=== PATIENT | male | born 1950 | race Caucasian/White ===

== ENCOUNTER → 2016-06-04 | Outpatient (CLI) | payer OTHER, MEDICARE ==
--- NOTE | 2016-06-04 13:45 | US ---
EXAMINATION TYPE: US liver DATE OF EXAM: 06/04/2016 1:34 PM COMPARISON: NONE CLINICAL HISTORY: B18.2 CHRONIC VIRAL HEP C. EXAM MEASUREMENTS: Liver Length: 17.3 cm Gallbladder Wall: 0.3 cm CBD: 0.5 cm Right Kidney: 10.3 x 5.7 x 6.8 cm Pancreas: Obscured by bowel gas Liver: Increased attenuation Gallbladder: No stones seen Evidence for sonographic Goodwin's sign: no CBD: wnl Right Kidney: No hydronephrosis or nephrolithiasis seen IMPRESSION: 1. Nonspecific increased attenuation to the liver can be seen with fatty infiltration, hepatocellular disease, or enteritis. Correlate clinically.
[2016-06-04 14:17] LABS: INR 1.2 (<1.1); Prothrombin Time 12.3 sec (9.0-12.0)
[2016-06-04 14:22] LABS: CH 36.2; CHCM 34.2; HCT 39.1 % (39.0-53.0); HDW 2.69; HGB 13.3 gm/dL (13.0-17.5); MCH 36.3 pg (25.0-35.0); MCHC 34.1 g/dL (31.0-37.0); MCV 106.5 fL (80.0-100.0); Macrocytosis Moderate; Mean Platelet Volume 8.8; RBC 3.67 m/uL (4.30-5.90); RDW 13.3 % (11.5-15.5); WBC 3.5 k/uL (3.8-10.6)
[2016-06-04 14:32] LABS: ALT 50 U/L (21-72); AST 55 U/L (17-59); Alkaline Phosphatase 123 U/L (38-126); Anion Gap 8 mmol/L; Blood Urea Nitrogen 18 mg/dL (9-20); Calcium 8.9 mg/dL (8.4-10.2); Carbon Dioxide 26 mmol/L (22-30); Chloride 109 mmol/L (98-107); Glucose 127 mg/dL (74-99); Non-African American GFR(MDRD) >60 (>60 ml/min/1.73 sqM); Potassium 4.1 mmol/L (3.5-5.1); Sodium 143 mmol/L (137-145); Total Bilirubin 1.3 mg/dL (0.2-1.3); Total Protein 6.7 g/dL (6.3-8.2)
[2016-06-07 16:55] LABS: HCV Qualitative Result DETECTED (Not detected)
== END | disposition home or self-care (01) ==
LOC: RADUSWWP 13:11
PROVIDERS: ATTEND Internal Medicine Gastroenterology
DX: B18.2 Chronic viral hepatitis C (principal)
CPT/HCPCS: 36415; 76705; 80053; 82105; 85027; 85610; 87522; 87902

== ENCOUNTER → 2016-07-15 | Outpatient (CLI) | payer OTHER, MEDICARE ==
--- NOTE | 2016-07-15 14:27 | US ---
EXAMINATION TYPE: US kidneys/renal and bladder DATE OF EXAM: 07/15/2016 1:50 PM COMPARISON: Previous exam 04 June 2016 CLINICAL HISTORY: R31.21 Hematuria. Microscopic hematuria, no symptoms EXAM MEASUREMENTS: Right Kidney: 9.6 x 4.9 x 6.0 cm Left Kidney: 9.8 x 4.4 x 6.3 cm Right Kidney: wnl Left Kidney: wnl Bladder: wnl Bilateral Jets seen: no incidental of enlarged spleen = 17cm There is no evidence for hydronephrosis at this point in time. No nephrolithiasis is seen. No xander s are identified. The urinary bladder is anechoic. Bilateral ureteral jets are seen. Cortical medullary differentiation is maintained. There is no ascites. The spleen is enlarged. IMPRESSION: Splenomegaly.
== END | disposition home or self-care (01) ==
LOC: RADUSWWP 13:13
PROVIDERS: ATTEND Urology
DX: R16.1 Splenomegaly, not elsewhere classified (principal)
CPT/HCPCS: 76770

== ENCOUNTER → 2016-09-20 | Outpatient (CLI) | payer OTHER, MEDICARE ==
[2016-09-20 10:37] LABS: INR 1.2 (<1.2); Prothrombin Time 12.3 sec (9.0-12.0)
[2016-09-20 10:43] LABS: CH 35.7; CHCM 35.1; HCT 37.7 % (39.0-53.0); HDW 2.66; HGB 13.5 gm/dL (13.0-17.5); MCH 36.6 pg (25.0-35.0); MCHC 35.9 g/dL (31.0-37.0); MCV 102.2 fL (80.0-100.0); Macrocytosis Slight; Mean Platelet Volume 8.3; RBC 3.69 m/uL (4.30-5.90); WBC 2.6 k/uL (3.8-10.6)
[2016-09-20 10:51] LABS: ALT 38 U/L (21-72); AST 30 U/L (17-59); Alkaline Phosphatase 147 U/L (38-126); Anion Gap 8 mmol/L; Blood Urea Nitrogen 21 mg/dL (9-20); Calcium 8.9 mg/dL (8.4-10.2); Carbon Dioxide 22 mmol/L (22-30); Chloride 113 mmol/L (98-107); Glucose 105 mg/dL (74-99); Non-African American GFR(MDRD) >60 (>60 ml/min/1.73 sqM); Potassium 4.2 mmol/L (3.5-5.1); Sodium 143 mmol/L (137-145); Total Bilirubin 1.1 mg/dL (0.2-1.3); Total Protein 6.6 g/dL (6.3-8.2)
== END | disposition home or self-care (01) ==
LOC: LABWHC1 10:02
PROVIDERS: ATTEND Internal Medicine Gastroenterology
DX: B18.2 Chronic viral hepatitis C (principal)
CPT/HCPCS: 36415; 80053; 82105; 85027; 85610

== ENCOUNTER → 2016-10-29 | Outpatient (CLI) | payer OTHER, MEDICARE ==
[2016-10-29 10:52] LABS: Basophils % (A) 0 %; CH 37.1; Eosinophils # (A) 0.2 k/uL (0-0.7); Eosinophils % (A) 5 %; HCT 39.4 % (39.0-53.0); HDW 2.57; HGB 13.5 gm/dL (13.0-17.5); Luc # (Auto) 0.08; Luc % (Auto) 3; Lymphocytes # (A) 1.1 k/uL (1.0-4.8); Lymphocytes % (A) 36 %; MCH 36.6 pg (25.0-35.0); MCHC 34.3 g/dL (31.0-37.0); MCV 106.7 fL (80.0-100.0); Macrocytosis Moderate; Monocytes # (A) 0.3 k/uL (0-1.0); Monocytes % (A) 8 %; Neutrophils # (A) 1.5 k/uL (1.3-7.7); Neutrophils % (A) 48 %; RBC 3.69 m/uL (4.30-5.90); RDW 13.6 % (11.5-15.5); WBC 3.2 k/uL (3.8-10.6); WBC (Perox) 3.08
[2016-11-01 13:22] LABS: Hepatits C Virus RNA, Quant <12 IU/mL (<12); LOG HCV IU/mL <1.08 (<1.08)
== END | disposition home or self-care (01) ==
LOC: LABWHC1 10:33
PROVIDERS: ATTEND Internal Medicine Gastroenterology
DX: B18.2 Chronic viral hepatitis C (principal)
CPT/HCPCS: 36415; 85025; 87522

== ENCOUNTER → 2017-01-20 | Outpatient (CLI) | payer OTHER, MEDICARE ==
[2017-01-20 12:00] LABS: Basophils % (A) 0 %; CH 36.3; CHCM 35.3; Eosinophils # (A) 0.2 k/uL (0-0.7); Eosinophils % (A) 4 %; HCT 40.5 % (39.0-53.0); Luc # (Auto) 0.08; Luc % (Auto) 2; Lymphocytes # (A) 1.1 k/uL (1.0-4.8); Lymphocytes % (A) 30 %; MCH 35.9 pg (25.0-35.0); MCHC 34.7 g/dL (31.0-37.0); MCV 103.5 fL (80.0-100.0); Macrocytosis Slight; Mean Platelet Volume 8.7; Monocytes # (A) 0.3 k/uL (0-1.0); Monocytes % (A) 8 %; Neutrophils % (A) 55 %; RBC 3.91 m/uL (4.30-5.90); RDW 12.7 % (11.5-15.5); WBC 3.7 k/uL (3.8-10.6); WBC (Perox) 3.73
[2017-01-20 12:04] LABS: INR 1.2 (<1.2); Prothrombin Time 12.1 sec (9.0-12.0)
[2017-01-20 12:28] LABS: ALT 34 U/L (21-72); AST 31 U/L (17-59); Alkaline Phosphatase 154 U/L (38-126); Anion Gap 6 mmol/L; Blood Urea Nitrogen 18 mg/dL (9-20); Calcium 9.1 mg/dL (8.4-10.2); Carbon Dioxide 27 mmol/L (22-30); Chloride 107 mmol/L (98-107); Glucose 156 mg/dL (74-99); Non-African American GFR(MDRD) >60 (>60 ml/min/1.73 sqM); Potassium 4.2 mmol/L (3.5-5.1); Sodium 140 mmol/L (137-145); Total Bilirubin 1.1 mg/dL (0.2-1.3)
[2017-01-21 15:52] LABS: Hepatits C Virus RNA, Quant <12 IU/mL (<12); LOG HCV IU/mL <1.08 (<1.08)
== END | disposition home or self-care (01) ==
LOC: LABWHC1 11:21
PROVIDERS: ATTEND Internal Medicine Gastroenterology
DX: B18.2 Chronic viral hepatitis C (principal)
CPT/HCPCS: 36415; 80053; 82105; 85025; 85610; 87522

== ENCOUNTER → 2017-03-08 | Outpatient (CLI) | payer OTHER, MEDICARE ==
--- NOTE | 2017-03-08 14:15 | XR ---
EXAMINATION TYPE: XR Hip Limited RT DATE OF EXAM: 03/08/2017 CLINICAL HISTORY: Low back pain in right hip pain TECHNIQUE: AP and frogleg views of the right hip are obtained. COMPARISON: None. FINDINGS: There is no acute fracture/dislocation evident in the right hip. The joint space in the r ight hip appears appear mildly narrowed in the cephalad direction with acetabular roof sclerosis marisela cative of underlying mild arthropathy. The overlying soft tissue appears unremarkable. No cam deform ity of the right hip. IMPRESSION: 1. There is no acute fracture or dislocation in the right hip. 2. Mild right femoral acetabular arthropathy.
--- NOTE | 2017-03-08 14:24 | XR ---
EXAMINATION TYPE: XR lumbar spine 2 or 3V DATE OF EXAM: 03/08/2017 CLINICAL HISTORY: Low back pain TECHNIQUE: Frontal and lateral images of the lumbar spine were obtained. COMPARISON: None FINDINGS: There are 5 lumbar type vertebral bodies identified. The lumbar spine vertebral body heig hts are maintained. Alignment of the lumbar spine is maintained. Multilevel moderate degenerative laura nges of the lumbar spine are displayed as anterior osteophytes, facet arthropathy, intervertebral dis c space height loss, and endplate sclerosis most exaggerated at L4-L5. Mild calcific atheromatous laura nges are seen of the abdominal aorta.. The overlying soft tissue appears unremarkable. IMPRESSION: 1. No acute fracture or malalignment is seen in the lumbar spine. 2. Moderate multilevel degenerative disc disease most exaggerated at L4-L5. If there is persistent pa in MR of the lumbar spine could be performed to evaluate for disc herniation, neural foraminal stenos is and spinal canal stenosis.
== END | disposition home or self-care (01) ==
LOC: RADXRMAIN 13:39
PROVIDERS: ATTEND Family Medicine
DX: M51.36 Other intervertebral disc degeneration, lumbar region (principal); M12.851 Other specific arthropathies, not elsewhere classified, right hip
CPT/HCPCS: 72100; 73501

== ENCOUNTER → 2017-08-06 | Outpatient (CLI) | payer OTHER, MEDICARE ==
[2017-08-06 12:14] LABS: Albumin 3.8 g/dL (3.5-5.0); Calcium 9.3 mg/dL (8.4-10.2); Potassium 4.3 mmol/L (3.5-5.1); Total Bilirubin 1.1 mg/dL (0.2-1.3); Total Protein 7.2 g/dL (6.3-8.2)
[2017-08-06 12:16] LABS: Basophils % (A) 1 %; Eosinophils # (A) 0.2 k/uL (0-0.7); Eosinophils % (A) 5 %; HCT 40.8 % (39.0-53.0); HGB 13.8 gm/dL (13.0-17.5); Lymphocytes # (A) 1.1 k/uL (1.0-4.8); Lymphocytes % (A) 32 %; MCH 35.3 pg (25.0-35.0); MCHC 33.9 g/dL (31.0-37.0); MCV 104.4 fL (80.0-100.0); Macrocytosis Slight; Mean Platelet Volume 9.5; Monocytes # (A) 0.3 k/uL (0-1.0); Monocytes % (A) 9 %; Neutrophils # (A) 1.8 k/uL (1.3-7.7); Neutrophils % (A) 53 %; RBC 3.91 m/uL (4.30-5.90); RDW 13.3 % (11.5-15.5); WBC 3.4 k/uL (3.8-10.6)
[2017-08-06 12:17] LABS: INR 1.2 (<1.2); Prothrombin Time 11.5 sec (9.0-12.0)
[2017-08-06 12:51] LABS: Platelet Count 47 k/uL (150-450)
[2017-08-08 14:48] LABS: Hepatits C Virus RNA Not detected (Not detected); Hepatits C Virus RNA, Quant <12 IU/mL (<12); LOG HCV IU/mL <1.08 (<1.08)
== END | disposition home or self-care (01) ==
LOC: LABWHC1 10:56
PROVIDERS: ATTEND Internal Medicine Gastroenterology
DX: B18.2 Chronic viral hepatitis C (principal)
CPT/HCPCS: 36415; 80053; 82105; 85025; 85610; 87522

== ENCOUNTER 2017-09-01 22:18 | Emergency (ER) | payer OTHER, MEDICARE ==
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
[2017-09-02 00:47] LABS: Basophils % (A) 1 %; Eosinophils # (A) 0.1 k/uL (0-0.7); Eosinophils % (A) 2 %; HCT 42.3 % (39.0-53.0); HGB 14.3 gm/dL (13.0-17.5); Lymphocytes # (A) 1.6 k/uL (1.0-4.8); Lymphocytes % (A) 32 %; MCH 35.1 pg (25.0-35.0); MCHC 33.9 g/dL (31.0-37.0); MCV 103.4 fL (80.0-100.0); Macrocytosis Slight; Mean Platelet Volume 8.9; Monocytes # (A) 0.5 k/uL (0-1.0); Monocytes % (A) 10 %; Neutrophils # (A) 2.6 k/uL (1.3-7.7); Neutrophils % (A) 53 %; RBC 4.08 m/uL (4.30-5.90); RDW 13.5 % (11.5-15.5)
[2017-09-02 00:52] LABS: Albumin 4.1 g/dL (3.5-5.0); Calcium 9.3 mg/dL (8.4-10.2); Potassium 4.3 mmol/L (3.5-5.1); Total Bilirubin 1.7 mg/dL (0.2-1.3); Total Protein 7.5 g/dL (6.3-8.2)
[2017-09-02 00:55] LABS: INR 1.2 (<1.2); Partial Thromboplastin Time 24.5 sec (22.0-30.0); Prothrombin Time 11.7 sec (9.0-12.0)
[2017-09-02 01:03] LABS: Creatine Kinase 86 U/L (55-170)
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
[2017-09-02] MEDS ORDERED: SODIUM CHLORIDE 0.9% 1,000 ML IV ONE (01:07)
[2017-09-02 01:11] VITALS: RESP 16; TEMP 97.5
[2017-09-02 01:14] LABS: Platelet Count 55 k/uL (150-450)
[2017-09-02 01:16] LABS: Creatine Kinase MB 0.6 ng/mL (0.0-2.4); Troponin I <0.012 ng/mL (0.000-0.034)
[2017-09-02 02:18] VITALS: BP 123/64; PULSE 56
== END 2017-09-02 02:29 | disposition home or self-care (01) ==
LOC: EC 22:18
DX: S01.01XA Laceration without foreign body of scalp, initial encounter (principal); S06.0X0A Concussion without loss of consciousness, initial encounter; E86.0 Dehydration; I44.4 Left anterior fascicular block; R10.84 Generalized abdominal pain; R53.83 Other fatigue; I11.0 Hypertensive heart disease with heart failure; I50.9 Heart failure, unspecified; Z87.891 Personal history of nicotine dependence; Z79.899 Other long term (current) drug therapy; Z87.09 Personal history of other diseases of the respiratory system; Z95.9 Presence of cardiac and vascular implant and graft, unspecified; W22.8XXA Striking against or struck by other objects, initial encounter; Y92.89 Other specified places as the place of occurrence of the external cause
CPT/HCPCS: 12001; 36415; 70450; 80053; 82150; 82550; 82553; 83690; 84484; 85025; 85610; 85730; 93005; 96360; 99284

== ENCOUNTER → 2017-12-05 | Outpatient (CLI) | payer OTHER, MEDICARE ==
[2017-12-05 15:23] LABS: HCT 41.1 % (39.0-53.0); HGB 13.7 gm/dL (13.0-17.5); MCH 35.8 pg (25.0-35.0); MCHC 33.4 g/dL (31.0-37.0); MCV 106.9 fL (80.0-100.0); Macrocytosis Moderate; Mean Platelet Volume 8.3; Platelet Count 61 k/uL (150-450); RBC 3.84 m/uL (4.30-5.90); RDW 13.2 % (11.5-15.5); WBC 4.1 k/uL (3.8-10.6)
[2017-12-05 16:06] LABS: Eosinophils # (M) 0.08 k/uL (0-0.7); Lymphocytes # (M) 1.07 k/uL (1.0-4.8); Monocytes # (M) 0.21 k/uL (0-1.0); Neutrophils # (M) 2.75 k/uL (1.3-7.7); Neutrophils % (M) 67 %; Nucleated Red Blood Cells 0 /100 WBC (0-0); Total Cells Counted 100
== END | disposition home or self-care (01) ==
LOC: RADUSWWP 12:12
PROVIDERS: ATTEND Internal Medicine Gastroenterology
DX: K74.60 Unspecified cirrhosis of liver (principal)
CPT/HCPCS: 36415; 82105; 85025

== ENCOUNTER → 2018-01-23 | Outpatient (CLI) | payer OTHER, MEDICARE ==
--- NOTE | 2018-01-23 10:25 | US ---
EXAMINATION TYPE: US liver DATE OF EXAM: 01/23/2018 COMPARISON: None CLINICAL HISTORY: 67-year-old male Cirrhosis of the Liver K74.60. TECHNIQUE: Multiple sonographic images of the right upper quadrant are obtained. FINDINGS: EXAM MEASUREMENTS: Liver Length: 15.4 cm Gallbladder Wall: 0.2 cm CBD: 2.8 mm Right Kidney: 11.1 x 5.2 x 5.6 cm Pancreas: not well visualized due to midline bowel gas Liver: Some images show subtle contour nodularity, for example, image 15 of 51. No focal lesion is se en. Slight heterogeneous echotexture. Gallbladder: No abnormal distention, wall thickening, pericholecystic fluid, or shadowing calculi. Evidence for sonographic Goodwin's sign: No CBD: wnl Right Kidney: No hydronephrosis. Incidental note is made of AAA that measures 4.8 x 4.6 cm, with thrombus seen. Patient is of large body habitus. IMPRESSION: 1. Mild heterogeneity of the liver. Some images show subtle contour nodularity. Findings in keeping w ith the provided history of cirrhosis. No sonographic evidence for hepatoma. 2. Incidental AAA measuring 4.8 cm. Appropriate follow-up recommended.
== END ==
LOC: RADUSWWP 06:57
PROVIDERS: ATTEND Internal Medicine Gastroenterology
DX: K74.60 Unspecified cirrhosis of liver (principal)
CPT/HCPCS: 76705

== ENCOUNTER → 2018-03-03 | Outpatient (CLI) | payer OTHER, MEDICARE ==
--- NOTE | 2018-03-06 07:19 | XR ---
EXAMINATION TYPE: XR chest 2V DATE OF EXAM: 03/03/2018 COMPARISON: None HISTORY: Congestive heart failure, COPD, and shortness of breath. TECHNIQUE: Frontal and lateral views of the chest are obtained. FINDINGS: There is interstitial prominence throughout. Heart size is within normal limits. No sizabl e focal consolidation, pleural effusion or pneumothorax. Minimal multilevel degenerative changes of t he thoracic spine are seen. Flattening of the hemidiaphragms on the lateral view suggests underlying COPD. IMPRESSION: 1. Interstitial prominence throughout can be seen in mild interstitial pulmonary edema or atypical pn eumonitis. 2. Radiographic findings suggesting underlying COPD.
== END | disposition home or self-care (01) ==
LOC: RADXRMAIN 14:49
PROVIDERS: ATTEND Family Medicine
DX: R91.8 Other nonspecific abnormal finding of lung field (principal); I50.32 Chronic diastolic (congestive) heart failure
CPT/HCPCS: 71046

== ENCOUNTER 2018-04-07 21:18 | Emergency (ER) | payer OTHER, MEDICARE ==
[2018-04-07 21:25] VITALS: TEMP 98.9
[2018-04-07] MEDS ORDERED: ALBUTEROL NEBULIZED 2.5 MG/3 ML INHALATION STA (21:58)
[2018-04-07] MEDS ORDERED: IPRATROPIUM 0.5 MG/2.5 ML NEBU INHALATION STA (21:58)
--- NOTE | 2018-04-07 22:04 | ED ---
SOB HPI - General Chief Complaint: Shortness of Breath Stated Complaint: HAN Time Seen by Provider: 04/07/18 21:27 Source: patient Mode of arrival: wheelchair Limitations: no limitations - History of Present Illness Initial Comments: This patient is 67-year-old man with history of COPD, CHF, and some underlying liver disease, who presents to be evaluated for worsening of his shortness of breath. He states the symptoms have been flaring up going on about 4 days now. He noted that he also has more frequent though still nonproductive cough. Patient has not had fever or chills. Things began with some upper respiratory symptoms, including nasal drainage and congestion and then progressed his chest about 4 days ago. He does note that there is some chest pain at the sternal border bilaterally that he relates to the coughing that he has been doing. It does not have an exertional component. MD Complaint: shortness of breath, cough, chest pain Onset/Timin -: days(s) Severity: mild Quality: aching Consistency: constant Improves With: nothing Worsens With: coughing Known History Of: COPD, congestive heart failure Associated Symptoms: chest pain, cough Treatments Prior to Arrival: none - Related Data Home Oxygen Therapy: No Home Medications Medication Instructions Recorded Confirmed Carvedilol 25 mg PO BID 01/17/14 09/01/17 Spironolactone [Aldactone] 25 mg PO DAILY 01/17/14 09/01/17 Atorvastatin Calcium [Lipitor] 10 mg PO HS 09/01/17 09/01/17 Doxycycline Hyclate [Vibramycin] 100 mg PO BID 09/01/17 09/01/17 Furosemide [Lasix] 20 mg PO DAILY 09/01/17 09/01/17 Gabapentin [Neurontin] 100 mg PO BID 09/01/17 09/01/17 Ipratropium-Albuterol Nebulize 3 ml INHALATION RT-Q8H 09/01/17 09/01/17 [Duoneb 0.5 mg-3 mg/3 ml Soln] Umeclidinium [place] [Incruse 1 puff INHALATION RT-DAILY 09/01/17 09/01/17 Ellipta] Previous Rx's Medication Instructions Recorded predniSONE 60 mg PO DAILY #30 tab 04/08/18 Allergies Allergy/AdvReac Type Severity Reaction Status Date / Time No Known Allergies Allergy Verified 04/07/18 21:25 Review of Systems ROS Statement: Those systems with pertinent positive or pertinent negative responses have been documented in the HPI. ROS Other: All systems not noted in ROS Statement are negative. Constitutional: Denies: fever, chills ENT: Reports: congestion Respiratory: Reports: cough, dyspnea, wheezes. Denies: hemoptysis Cardiovascular: Reports: chest pain, dyspnea on exertion. Denies: palpitations , orthopnea, edema, syncope Gastrointestinal: Denies: abdominal pain, nausea, vomiting, melena, hematochezia Genitourinary: Denies: dysuria, hematuria Musculoskeletal: Denies: back pain Skin: Denies: rash Neurological: Denies: headache, weakness Past Medical History Past Medical History: Heart Failure, COPD, GERD/Reflux, Hypertension, Liver Disease, Respiratory Disorder Additional Past Medical History / Comment(s): congestive heart failure, and hepatitis C treated X 2 History of Any Multi-Drug Resistant Organisms: None Reported Past Surgical History: Heart Catheterization, Hernia Repair, Orthopedic Surgery Additional Past Surgical History / Comment(s): shoulder surgery Past Anesthesia/Blood Transfusion Reactions: No Reported Reaction, Motion Sickness Past Psychological History: No Psychological Hx Reported Smoking Status: Former smoker Past Alcohol Use History: None Reported Past Drug Use History: Marijuana - Past Family History Mother Family Medical History: Cancer General Exam Limitations: no limitations General appearance: alert, in no apparent distress Head exam: Present: atraumatic, normocephalic Eye exam: Present: normal appearance. Absent: scleral icterus, conjunctival injection ENT exam: Present: normal oropharynx Neck exam: Present: normal inspection Respiratory exam: Present: wheezes. Absent: normal lung sounds bilaterally, respiratory distress, rales, rhonchi, stridor Cardiovascular Exam: Present: regular rate, normal rhythm, normal heart sounds. Absent: systolic murmur, diastolic murmur, rubs, gallop GI/Abdominal exam: Present: soft. Absent: distended, tenderness, guarding, rebound, rigid, mass Extremities exam: Present: normal inspection, normal capillary refill. Absent: pedal edema, calf tenderness Back exam: Present: normal inspection. Absent: CVA tenderness (R), CVA tenderness (L) Neurological exam: Present: alert Skin exam: Present: warm, dry, intact, normal color. Absent: rash Course Vital Signs 04/07/18 04/07/18 04/07/18 21:23 22:00 22:05 Temperature 98.9 F Pulse Rate 65 57 L 66 Respiratory 22 9 L Rate Blood Pressure 130/75 113/85 O2 Sat by Pulse 95 96 Oximetry 04/07/18 04/07/18 04/07/18 22:16 23:00 23:30 Temperature Pulse Rate 66 53 L 63 Respiratory 11 L 10 L Rate Blood Pressure 125/74 142/87 O2 Sat by Pulse 96 98 Oximetry 04/08/18 04/08/18 04/08/18 00:00 01:00 01:30 Temperature Pulse Rate 57 L 52 L 54 L Respiratory 11 L 13 18 Rate Blood Pressure 137/88 128/86 121/58 O2 Sat by Pulse 99 99 Oximetry Medical Decision Making - Medical Decision Making This patient is a 67-year-old man with COPD exacerbation. At initial evaluation , felt he would require admission, however after number treatments, patient is feeling better and would like to go home. We discussed the appropriate follow- up and further care. We discussed return parameters. - Lab Data Result diagrams: 04/07/18 21:35 04/07/18 21:35 Lab Results 04/07/18 04/07/18 04/07/18 Range/Units 21:35 21:35 21:35 WBC 5.0 (3.8-10.6) k/uL RBC 4.11 L (4.30-5.90) m/uL Hgb 14.3 (13.0-17.5) gm/dL Hct 41.7 (39.0-53.0) % MCV 101.6 H (80.0-100.0) fL MCH 34.8 (25.0-35.0) pg MCHC 34.2 (31.0-37.0) g/dL RDW 13.2 (11.5-15.5) % Plt Count 59 L (150-450) k/uL Neutrophils % 32 % Lymphocytes % 45 % Monocytes % 17 % Eosinophils % 2 % Basophils % 0 % Neutrophils # 1.6 (1.3-7.7) k/uL Lymphocytes # 2.3 (1.0-4.8) k/uL Monocytes # 0.8 (0-1.0) k/uL Eosinophils # 0.1 (0-0.7) k/uL Basophils # 0.0 (0-0.2) k/uL Manual Slide Review Performed Macrocytosis Slight PT (9.0-12.0) sec INR (<1.2) APTT (22.0-30.0) sec D-Dimer (<0.60) mg/L FEU Sodium 141 (137-145) mmol/L Potassium 3.8 (3.5-5.1) mmol/L Chloride 107 (98-107) mmol/L Carbon Dioxide 28 (22-30) mmol/L Anion Gap 6 mmol/L BUN 28 H (9-20) mg/dL Creatinine 1.24 (0.66-1.25) mg/dL Est GFR (CKD-EPI)AfAm 69 (>60 ml/min/1.73 sqM) Est GFR (CKD-EPI)NonAf 60 (>60 ml/min/1.73 sqM) Glucose 113 H (74-99) mg/dL Calcium 9.2 (8.4-10.2) mg/dL Total Bilirubin 1.4 H (0.2-1.3) mg/dL AST 33 (17-59) U/L ALT 25 (21-72) U/L Alkaline Phosphatase 125 (38-126) U/L Total Creatine Kinase 57 (55-170) U/L CK-MB (CK-2) 0.4 (0.0-2.4) ng/mL CK-MB (CK-2) Rel Index 0.7 Troponin I <0.012 (0.000-0.034) ng/mL NT-Pro-B Natriuret Pep pg/mL Total Protein 7.4 (6.3-8.2) g/dL Albumin 3.9 (3.5-5.0) g/dL 04/07/18 04/07/18 Range/Units 21:35 21:35 WBC (3.8-10.6) k/uL RBC (4.30-5.90) m/uL Hgb (13.0-17.5) gm/dL Hct (39.0-53.0) % MCV (80.0-100.0) fL MCH (25.0-35.0) pg MCHC (31.0-37.0) g/dL RDW (11.5-15.5) % Plt Count (150-450) k/uL Neutrophils % % Lymphocytes % % Monocytes % % Eosinophils % % Basophils % % Neutrophils # (1.3-7.7) k/uL Lymphocytes # (1.0-4.8) k/uL Monocytes # (0-1.0) k/uL Eosinophils # (0-0.7) k/uL Basophils # (0-0.2) k/uL Manual Slide Review Macrocytosis PT 11.4 (9.0-12.0) sec INR 1.1 (<1.2) APTT 26.4 (22.0-30.0) sec D-Dimer 7.08 H (<0.60) mg/L FEU Sodium (137-145) mmol/L Potassium (3.5-5.1) mmol/L Chloride (98-107) mmol/L Carbon Dioxide (22-30) mmol/L Anion Gap mmol/L BUN (9-20) mg/dL Creatinine (0.66-1.25) mg/dL Est GFR (CKD-EPI)AfAm (>60 ml/min/1.73 sqM) Est GFR (CKD-EPI)NonAf (>60 ml/min/1.73 sqM) Glucose (74-99) mg/dL Calcium (8.4-10.2) mg/dL Total Bilirubin (0.2-1.3) mg/dL AST (17-59) U/L ALT (21-72) U/L Alkaline Phosphatase (38-126) U/L Total Creatine Kinase (55-170) U/L CK-MB (CK-2) (0.0-2.4) ng/mL CK-MB (CK-2) Rel Index Troponin I (0.000-0.034) ng/mL NT-Pro-B Natriuret Pep 145 pg/mL Total Protein (6.3-8.2) g/dL Albumin (3.5-5.0) g/dL - EKG Data -: EKG Interpreted by Ri EKG shows normal: sinus rhythm (With frequent bigeminy, rate proximally 67 bpm) , axis (Left axis deviation), intervals (Normal), QRS complexes (Normal), ST-T waves (Normal) Rate: normal Disposition Clinical Impression: COPD exacerbation Disposition: HOME SELF-CARE Condition: Fair Instructions (If sedation given, give patient instructions): COPD (Chronic Obstructive Pulmonary Disease) (ED) Prescriptions: predniSONE 60 mg PO DAILY #30 tab Is patient prescribed a controlled substance at d/c from ED?: No Referrals: Aristides Mena DO [Primary Care Provider] - 1-2 days
[2018-04-07 22:23] LABS: Basophils % (A) 0 %; Eosinophils # (A) 0.1 k/uL (0-0.7); Eosinophils % (A) 2 %; HCT 41.7 % (39.0-53.0); HGB 14.3 gm/dL (13.0-17.5); Lymphocytes # (A) 2.3 k/uL (1.0-4.8); Lymphocytes % (A) 45 %; MCH 34.8 pg (25.0-35.0); MCHC 34.2 g/dL (31.0-37.0); MCV 101.6 fL (80.0-100.0); Macrocytosis Slight; Monocytes # (A) 0.8 k/uL (0-1.0); Monocytes % (A) 17 %; Neutrophils # (A) 1.6 k/uL (1.3-7.7); Neutrophils % (A) 32 %; RBC 4.11 m/uL (4.30-5.90); RDW 13.2 % (11.5-15.5)
[2018-04-07 22:26] LABS: Albumin 3.9 g/dL (3.5-5.0); Calcium 9.2 mg/dL (8.4-10.2); Potassium 3.8 mmol/L (3.5-5.1); Total Bilirubin 1.4 mg/dL (0.2-1.3); Total Protein 7.4 g/dL (6.3-8.2)
[2018-04-07 22:31] LABS: Creatine Kinase 57 U/L (55-170)
--- NOTE | 2018-04-07 22:41 | XR ---
EXAMINATION TYPE: XR chest 2V DATE OF EXAM: 04/07/2018 COMPARISON: 03/03/2018 HISTORY: Short of breath TECHNIQUE: Frontal and lateral views of the chest are obtained. FINDINGS: There is no heart failure nor confluent pneumonic infiltrate. Costophrenic angles are natalya r. There are chest leads. Bony thorax is intact. IMPRESSION: No active cardiopulmonary disease. Normal heart. No change.
[2018-04-07 22:43] LABS: Creatine Kinase MB 0.4 ng/mL (0.0-2.4); Troponin I <0.012 ng/mL (0.000-0.034)
[2018-04-07 22:50] LABS: INR 1.1 (<1.2); Partial Thromboplastin Time 26.4 sec (22.0-30.0); Prothrombin Time 11.4 sec (9.0-12.0)
[2018-04-07 22:56] LABS: D-Dimer 7.08 mg/L FEU (<0.60)
[2018-04-07 23:16] LABS: Platelet Count 59 k/uL (150-450)
--- NOTE | 2018-04-08 00:37 | CT ---
EXAMINATION TYPE: CT chest angio for PE DATE OF EXAM: 04/08/2018 COMPARISON: 04/16/2011 HISTORY: R/O PE CT DLP: 656.90 mGycm Automated exposure control for dose reduction was used. CONTRAST: CT Chest for pulmonary embolism performed with with IV Contrast, patient injected with 90 mL of Isovu e 370. FINDINGS: There are 3-D post processed images. The lungs are clear of consolidation. There is no pleural effusion. Heart size is normal. There is no pericardial effusion. There are no hilar masses. There is no mediastinal adenopathy. Thoracic aorta shows mild atheromatous change. There is mild aneurysm of ascending aorta measures 4.1 cm. The bony thorax is intact. There is normal contrast opacification of the pulmonary arteries. There are no filling defects. There is minimal emphysematous change at the lung apices. IMPRESSION: No evidence of pulmonary embolism. Minimal pulmonary emphysema. No significant change compared to old exam.
[2018-04-08 01:39] VITALS: BP 121/58; PULSE 54; RESP 18
== END 2018-04-08 01:40 | disposition home or self-care (01) ==
LOC: EC 21:18
DX: J44.1 Chronic obstructive pulmonary disease with (acute) exacerbation (principal); R94.31 Abnormal electrocardiogram [ECG] [EKG]; I11.0 Hypertensive heart disease with heart failure; I50.9 Heart failure, unspecified; Z87.891 Personal history of nicotine dependence; Z79.899 Other long term (current) drug therapy; Z86.19 Personal history of other infectious and parasitic diseases; Z95.818 Presence of other cardiac implants and grafts
CPT/HCPCS: 36415; 94640; 93005; 85379; 83880; 80053; 82550; 82553; 84484; 85025; 85610; 85730; 71046; 71275; 99285; Q9967

== ENCOUNTER → 2018-10-04 | Outpatient (CLI) | payer OTHER, MEDICARE ==
--- NOTE | 2018-10-04 14:13 | XR ---
EXAMINATION TYPE: XR cervical spine limited DATE OF EXAM: 10/04/2018 TECHNIQUE: Frontal and lateral as well as open mouth view of the cervical spine are obtained. HISTORY: M54.2 Neck pain COMPARISON: None FINDINGS: The cervical spine is visualized in its entirety from C1 thru the top of T1 level, it is s atisfactory in alignment without evidence of acute fracture. The pre-vertebral soft tissue appears wi thin normal limits. The C1-C2 articulation is within normal limits on the open mouth view. There is grade 1 anterolisthesis of C2 on C3 and minimal retrolisthesis of C4 on C5. Multilevel inter vertebral disc space narrowing, facet arthropathy, uncovertebral hypertrophy, endplate sclerosis, and anterior osteophytes are seen. Incidental note is atherosclerosis of the carotid arteries. There is reversal of the upper usual cervical lordosis. IMPRESSION: 1. No acute fracture is seen in the cervical spine. 2. Moderate to severe multilevel degenerative changes of the cervical spine with multilevel malalignm ent, likely on a degenerative basis and reversal of the upper cervical lordosis that may be on the ba sis of positioning or muscular sprain/spasm.
== END | disposition home or self-care (01) ==
LOC: RADXRMAIN 13:05
PROVIDERS: ATTEND Family Medicine
DX: M47.812 Spondylosis without myelopathy or radiculopathy, cervical region (principal)
CPT/HCPCS: 72040

== ENCOUNTER → 2018-11-14 | Outpatient (CLI) | payer OTHER, MEDICARE ==
--- NOTE | 2018-11-14 12:18 | CT ---
EXAMINATION TYPE: CT angio abd aorta w/Runoff DATE OF EXAM: 11/14/2018 COMPARISON: None HISTORY: Embolism and thrombosis of iliac artery CT DLP: 1624.20 mGycm, Automated Exposure Control for Dose Reduction was Utilized. CONTRAST: CTA scan of the abdomen and pelvis with lower extremity runoff is performed without oral and with IV Contrast, patient injected with 125 ml mL of Isovue 370. Three-D reconstructed images are created on a independent workstation and reviewed. FINDINGS: VASCULAR: Patent celiac artery, SMA, bilateral single renal arteries, and JENNIFER without significant jing nosis. There is aneurysm of the infrarenal abdominal aorta approximately 6.0 cm in length, sagittal i mage 67 and coronal image 48. There is fairly moderate to severe peripheral noncalcified plaque. Aneu rysm measures up to 5.2 x 5.4 cm transversely X image 80. Aneurysm does not extend into common iliac arteries. There is moderate calcified plaque in the common iliac arteries bilaterally with [id number] amrik cified plaque extending into internal and external iliac artery branches. No significant focal stenos is. Mild calcified plaque right common femoral artery. Patent deep femoral artery without significant armond que or stenosis. Mild calcified plaque periphery right superficial femoral artery. Mild calcified armond que distal segment. No significant stenosis. No significant plaque or stenosis in popliteal artery. S atisfactory bifurcation and trifurcation with mild calcified plaque along tibial peroneal trunk. Ther e is poor flow in the anterior tibial artery shortly after trifurcation on the right beginning at axi al image 343 for reference. There is good two-vessel flow in the right mid to lower leg with poorly o pacified peroneal artery just above the ankle. Good flow in the dorsal pedis is present. Mild calcified plaque left common femoral artery. Mild calcified plaque into the deep femoral artery without significant stenosis. Mild peripheral plaque along the course of the left superficial femoral artery without significant stenosis. No significant plaque or stenosis in the popliteal artery. Sati sfactory bifurcation and trifurcation with [id number] peripheral calcified plaque tibial perone al trunk. Good three-vessel flow proximal to mid leg in the left lower extremity versus the right low er extremity for reference axial image 364. There is good two-vessel flow in the distal leg and to th e left ankle. LUNG BASES: No significant abnormality is appreciated. LIVER/GB: Liver is somewhat small in size with lobulated peripheral contour, it is hypodense in appea aris. Underlying cirrhosis is suspected. There are few scattered subcentimeter low dense lesions too small to further characterize for presumed benign, for reference axial image 43 anterior right hepat ic lobe. No ascites is seen. No portal vein enlargement. PANCREAS: No significant abnormality is seen. SPLEEN: Splenomegaly is seen measuring 16.7 cm long axis coronal image 58. ADRENALS: No significant abnormality is seen. KIDNEYS: Kidneys somewhat small in size with cortical thinning. No hydronephrosis. Findings presumed product of chronic medical renal disease. Small bladder diverticulum left posterior aspect image 134 measuring 2.2 cm just anterior to left UVJ BOWEL: No significant abnormality is seen. PROSTATE/SEMINAL VESICLES: Central calcifications in normal size prostate. LYMPH NODES: No greater than 1cm abdominal or pelvic lymph nodes are appreciated. OSSEOUS STRUCTURES: Multilevel spurring of the spine moderate disc space narrowing L4-L5 level. Multi level facet arthropathy lower lumbar spine. Mild to moderate narrowing both hip joints. OTHER: No significant additional abnormality is seen. EXTREMITIES: Mild to moderate symmetric narrowing medial tibiofemoral compartments bilaterally with moderate narrowing patellofemoral compartments bilaterally. IMPRESSION: 1. There is AAA roughly 6 cm in length measuring up to 5.4 cm in diameter with iliac artery extension . There is peripheral vascular disease in the right lower extremity below the knee as detailed above versus opposite left leg. 2. Cirrhotic liver with splenomegaly suggesting underlying portal venous hypertension. Correlate clin ically.
== END | disposition home or self-care (01) ==
LOC: RADCTMAIN 08:10
PROVIDERS: ATTEND Surgery
DX: I71.4 Abdominal aortic aneurysm, without rupture (principal); I72.3 Aneurysm of iliac artery; K74.60 Unspecified cirrhosis of liver; R16.1 Splenomegaly, not elsewhere classified
CPT/HCPCS: 82565; 84520; 75635; 36415; Q9967 ×2

== ENCOUNTER → 2018-12-11 | Outpatient (CLI) | payer OTHER, MEDICARE ==
--- NOTE | 2018-12-11 09:48 | XR ---
EXAMINATION TYPE: XR chest 2V DATE OF EXAM: 12/11/2018 COMPARISON: 04/07/2018 HISTORY: COPD. Shortness of breath. TECHNIQUE: Frontal and lateral views of the chest are obtained. FINDINGS: Bibasilar opacity seen on the frontal view relate to copious overlying soft tissues as thes e are not reproduced on the lateral view and have a gradient effect. There is no focal air space opac ity, pleural effusion, or pneumothorax seen. There is pulmonary hyperinflation and flattening of the diaphragms related to underlying COPD. The cardiac silhouette size is within normal limits. The oss eous structures are intact. Mild multilevel degenerative changes of the spine are seen. IMPRESSION: No acute cardiopulmonary process. Underlying COPD is present.
== END | disposition home or self-care (01) ==
LOC: RADXRMAIN 09:10
PROVIDERS: ATTEND Family Medicine
DX: J44.9 Chronic obstructive pulmonary disease, unspecified (principal)
CPT/HCPCS: 71046

== ENCOUNTER 2018-12-14 10:23 | Emergency (ER) | payer OTHER, MEDICARE ==
[2018-12-14] MEDS ORDERED: SODIUM CHLORIDE 0.9% 500 ML 500 ML IV STA (11:06)
[2018-12-14] MEDS ORDERED: KETOROLAC 30 MG/ML 1 ML VIAL IVP STA (11:06)
[2018-12-14 11:37] LABS: Basophils % (A) 1 %; Eosinophils # (A) 0.1 k/uL (0-0.7); Eosinophils % (A) 1 %; HCT 37.6 % (39.0-53.0); HGB 13.3 gm/dL (13.0-17.5); Lymphocytes % (A) 20 %; MCH 36.7 pg (25.0-35.0); MCHC 35.3 g/dL (31.0-37.0); MCV 103.8 fL (80.0-100.0); Macrocytosis Slight; Mean Platelet Volume 8.6; Monocytes # (A) 0.6 k/uL (0-1.0); Monocytes % (A) 11 %; Neutrophils # (A) 3.4 k/uL (1.3-7.7); Neutrophils % (A) 66 %; RBC 3.62 m/uL (4.30-5.90); RDW 12.7 % (11.5-15.5); WBC 5.1 k/uL (3.8-10.6)
[2018-12-14 11:39] LABS: Albumin 3.6 g/dL (3.5-5.0); Calcium 8.9 mg/dL (8.4-10.2); Total Bilirubin 2.6 mg/dL (0.2-1.3); Total Protein 7.1 g/dL (6.3-8.2)
[2018-12-14 11:50] LABS: Potassium 4.2 mmol/L (3.5-5.1)
[2018-12-14 11:51] LABS: Platelet Count 48 k/uL (150-450)
--- NOTE | 2018-12-14 11:59 | US ---
EXAMINATION TYPE: US venous doppler duplex LE LT DATE OF EXAM: 12/14/2018 11:52 AM COMPARISON: NONE CLINICAL HISTORY: pain, welling in L foot. Pain and swelling in left leg. SIDE PERFORMED: Left TECHNIQUE: The lower extremity deep venous system is examined utilizing real time linear array sonog cee with graded compression, doppler sonography and color-flow sonography. VESSELS IMAGED: External Iliac Vein (EIV) Common Femoral Vein Deep Femoral Vein Greater Saphenous Vein * Femoral Vein Popliteal Vein Small Saphenous Vein * Proximal Calf Veins (* superficial vessels) Left Leg: Negative for DVT Grayscale, color doppler, spectral doppler imaging performed of the deep veins of the left lower extr emity. There is normal flow, compressibility, vascular waveforms. IMPRESSION: No ultrasound evidence for acute DVT in the left lower extremity.
--- NOTE | 2018-12-14 12:32 | XR ---
EXAMINATION TYPE: XR ankle complete LT DATE OF EXAM: 12/14/2018 COMPARISON: NONE HISTORY: Pain FINDINGS: Three views of the ankle demonstrate the ankle mortise to be intact and symmetric. The joint spaces are preserved. The osseous structures are intact. Hypertrophic spurring involving the calcaneus and tibia noted. Diffuse osteopenia. Soft tissue edema noted. IMPRESSION: 1. No definite acute fracture or dislocation, if symptoms persist follow-up study in 7 to 10 days wou ld be suggested. 2. Nonspecific soft tissue edema.
--- NOTE | 2018-12-14 12:33 | XR ---
EXAMINATION TYPE: XR foot complete LT DATE OF EXAM: 12/14/2018 COMPARISON: NONE HISTORY: Pain TECHNIQUE: Three views are submitted. FINDINGS: The osseous structures are intact. There is no acute fracture or dislocation. Arthropathy of the f irst MTP. Flattening of the head of the second metatarsal could be associated with chronic osteonecro sis. Hammertoe deformities noted. Diffuse osteopenia noted.. IMPRESSION: 1. No acute fracture or dislocation. If symptoms persist, follow-up exam in 7 to 10 days could be ob tained.
--- NOTE | 2018-12-14 12:39 | ED ---
General Adult HPI - General Source: patient, RN notes reviewed Mode of arrival: wheelchair Limitations: no limitations <Jose Portillo - Last Filed: 12/14/18 12:58> <Giovany Woodward - Last Filed: 12/14/18 16:29> - General Chief complaint: Extremity Problem,Nontraumatic Stated complaint: lt foot swelling Time Seen by Provider: 12/14/18 10:32 - History of Present Illness Initial comments: 68-year-old male with a past medical history of heart failure, COPD, hypertension, liver disease presents to the emergency department for a chief complaint of left foot pain and swelling. This started approximately 2 days ago . Patient denies any injuries. States it is painful to walk on. Denies any fevers or chills. Denies any spreading redness up the foot or leg. There is a swelling in the right leg. Denies any shortness of breath. Denies cough.Patient has no other complaints at this time including shortness of breath, chest pain, abdominal pain, nausea or vomiting, headache, or visual changes. (Jose Portillo) - Related Data Home Medications Medication Instructions Recorded Confirmed Carvedilol 25 mg PO BID 01/17/14 12/14/18 Atorvastatin Calcium [Lipitor] 10 mg PO HS 09/01/17 12/14/18 Doxycycline Hyclate [Vibramycin] 100 mg PO BID 09/01/17 12/14/18 Furosemide [Lasix] 20 mg PO DAILY 09/01/17 12/14/18 Gabapentin [Neurontin] 100 mg PO BID 09/01/17 12/14/18 Ipratropium-Albuterol Nebulize 3 ml INHALATION RT-Q8H 09/01/17 12/14/18 [Duoneb 0.5 mg-3 mg/3 ml Soln] Umeclidinium [place] [Incruse 1 puff INHALATION RT-DAILY PRN 09/01/17 12/14/18 Ellipta] Previous Rx's Medication Instructions Recorded Cephalexin [Keflex] 500 mg PO Q6HR 10 Days #40 cap 12/14/18 Allergies Allergy/AdvReac Type Severity Reaction Status Date / Time No Known Allergies Allergy Verified 12/14/18 10:38 Review of Systems ROS Other: All systems not noted in ROS Statement are negative. <Jose Portillo - Last Filed: 12/14/18 12:58> ROS Other: All systems not noted in ROS Statement are negative. <Giovany Woodward - Last Filed: 12/14/18 16:29> ROS Statement: Those systems with pertinent positive or pertinent negative responses have been documented in the HPI. Past Medical History Past Medical History: Heart Failure, COPD, GERD/Reflux, Hypertension, Liver Disease, Respiratory Disorder Additional Past Medical History / Comment(s): congestive heart failure, and hepatitis C treated X 2 History of Any Multi-Drug Resistant Organisms: None Reported Past Surgical History: Heart Catheterization, Hernia Repair, Orthopedic Surgery Additional Past Surgical History / Comment(s): shoulder surgery Past Anesthesia/Blood Transfusion Reactions: No Reported Reaction, Motion Sickness Past Psychological History: No Psychological Hx Reported Smoking Status: Former smoker Past Alcohol Use History: None Reported Past Drug Use History: Marijuana - Past Family History Mother Family Medical History: Cancer <Jose Portillo - Last Filed: 12/14/18 12:58> General Exam Limitations: no limitations General appearance: alert, in no apparent distress Head exam: Present: atraumatic, normocephalic, normal inspection Eye exam: Present: normal appearance, PERRL, EOMI. Absent: scleral icterus, conjunctival injection, periorbital swelling ENT exam: Present: normal exam, mucous membranes moist Neck exam: Present: normal inspection, full ROM. Absent: tenderness, me ningismus, lymphadenopathy Respiratory exam: Present: normal lung sounds bilaterally. Absent: respiratory distress, wheezes, rales, rhonchi, stridor Cardiovascular Exam: Present: regular rate, normal rhythm, normal heart sounds. Absent: systolic murmur, diastolic murmur, rubs, gallop, clicks Extremities exam: Present: full ROM (Range motion of the left foot and ankle.), tenderness (Generalized tenderness of the left foot.), normal capillary refill (cap refill < 2 seconds, DP pulse 2+ in left lower extremity), other (Patient has mild edema noted of the left lower 70. There is minimal erythema however patient does have increased warmth noted to the left foot. No area of induration or fluctuance suggestive of abscess.). Absent: pedal edema, joint swelling, calf tenderness Neurological exam: Present: alert Psychiatric exam: Present: normal affect, normal mood <Jose Portillo - Last Filed: 12/14/18 12:58> Course <Giovany Woodward - Last Filed: 12/14/18 16:29> Vital Signs 12/14/18 12/14/18 10:24 13:09 Temperature 98.3 F 98.8 F Pulse Rate 91 79 Respiratory 18 19 Rate Blood Pressure 157/68 142/78 O2 Sat by Pulse 97 98 Oximetry - Reevaluation(s) Reevaluation #1: 12/14/18 16:28 PA supervision: I proceeded [id number] evaluation the patient did present with complaints of left foot pain. He states is mostly on the bottom of his feet no trauma reported no fevers chills or sweats he believes he may be a type II diabetic. He denies any ill fitting shoes. Examination reveals some tenderness palpation of the plantar aspect the left foot is localized temperature though minimal evidence of any erythema no lymphangitis no proximal lymph nodes no proximal lymphadenopathy. No evidence of vascular compromise. Exam is consistent with #1 plantar fasciitis #2 early cellulitis. Patient was cautioned to follow-up with his doctor sooner return if any problems or any exacerbation the current symptoms including lymphangitis worsening symptoms. (Giovany Woodward) Medical Decision Making - Lab Data Result diagrams: 12/14/18 11:18 12/14/18 11:18 <Jose Portillo - Last Filed: 12/14/18 12:58> - Lab Data Result diagrams: 12/14/18 11:18 12/14/18 11:18 <Giovany Woodward - Last Filed: 12/14/18 16:29> - Medical Decision Making Vital are stable patient is afebrile. CBC and CMP unremarkable. White blood cell count is normal at 5.1. Platelets are within patient's normal range. Mild dehydration noted on CMP, patient given fluids. Phenergan ankle x-ray show nonspecific soft tissue edema without acute fracture or dislocation. No history of injury, low concern for occult fracture. Ultrasound of the left lower extremity shows no evidence for DVT. Dr. Woodward also examined patient and agrees that this is likely an early onset cellulitis. Patient was started on Rocephin and Keflex. He will be discharged home. He possibly also has an inflammatory fasciitis and was directed to take Motrin or Tylenol for pain. Discussed he follow up with primary care in the next 1-2 days to ensure improvement of symptoms. However recommended he return to the emergency department if he has any worsening symptoms or spreading redness of the leg. This was discussed with family member at bedside as well who is in agreement with treatment plan. She will help him care for himself at this time. (Jose Portillo) - Lab Data Lab Results 12/14/18 12/14/18 Range/Units 11:18 11:18 WBC 5.1 (3.8-10.6) k/uL RBC 3.62 L (4.30-5.90) m/uL Hgb 13.3 (13.0-17.5) gm/dL Hct 37.6 L (39.0-53.0) % MCV 103.8 H (80.0-100.0) fL MCH 36.7 H (25.0-35.0) pg MCHC 35.3 (31.0-37.0) g/dL RDW 12.7 (11.5-15.5) % Plt Count 48 L (150-450) k/uL Neutrophils % 66 % Lymphocytes % 20 % Monocytes % 11 % Eosinophils % 1 % Basophils % 1 % Neutrophils # 3.4 (1.3-7.7) k/uL Lymphocytes # 1.0 (1.0-4.8) k/uL Monocytes # 0.6 (0-1.0) k/uL Eosinophils # 0.1 (0-0.7) k/uL Basophils # 0.0 (0-0.2) k/uL Manual Slide Review Performed Macrocytosis Slight Sodium 139 (137-145) mmol/L Potassium 4.2 (3.5-5.1) mmol/L Chloride 106 (98-107) mmol/L Carbon Dioxide 23 (22-30) mmol/L Anion Gap 10 mmol/L BUN 24 H (9-20) mg/dL Creatinine 1.20 (0.66-1.25) mg/dL Est GFR (CKD-EPI)AfAm 71 (>60 ml/min/1.73 sqM) Est GFR (CKD-EPI)NonAf 62 (>60 ml/min/1.73 sqM) Glucose 133 H (74-99) mg/dL Calcium 8.9 (8.4-10.2) mg/dL Total Bilirubin 2.6 H (0.2-1.3) mg/dL AST 41 (17-59) U/L ALT 13 L (21-72) U/L Alkaline Phosphatase 128 H (38-126) U/L Total Protein 7.1 (6.3-8.2) g/dL Albumin 3.6 (3.5-5.0) g/dL Disposition Is patient prescribed a controlled substance at d/c from ED?: No Time of Disposition: 12:54 <Jose Portillo - Last Filed: 12/14/18 12:58> <Giovany Woodward - Last Filed: 12/14/18 16:29> Clinical Impression: Cellulitis of left foot Disposition: HOME SELF-CARE Condition: Good Instructions (If sedation given, give patient instructions): Cellulitis (ED) Additional Instructions: Please take Motrin and Tylenol for pain. Take Tylenol 3 if pain is severe. Take Keflex as directed. This was prescribed to [facility] on and [place]. Jori low-up with primary care in 1-2 days so she can recheck the area. Return here if you're having worsening symptoms such as worsening pain, spreading redness, streaking redness, or fever. Prescriptions: Cephalexin [Keflex] 500 mg PO Q6HR 10 Days #40 cap Referrals: Aristides Mena DO [Primary Care Provider] - 1-2 days
[2018-12-14] MEDS ORDERED: cefTRIAXone IN SWFI 1,000 MG/10 ML SYRINGE IVP STA (12:53)
[2018-12-14] MEDS ORDERED: ACET/COD 300 MG/30 MG STARTER PACK 6 TAB BTL PO STA (12:55)
[2018-12-14 13:10] VITALS: BP 142/78; PULSE 79; RESP 19; TEMP 98.8
== END 2018-12-14 13:10 | disposition home or self-care (01) ==
LOC: EC 10:23
DX: L03.116 Cellulitis of left lower limb (principal); E86.0 Dehydration; M79.89 Other specified soft tissue disorders; I11.0 Hypertensive heart disease with heart failure; I50.9 Heart failure, unspecified; J44.9 Chronic obstructive pulmonary disease, unspecified; Z87.891 Personal history of nicotine dependence; Z79.899 Other long term (current) drug therapy
CPT/HCPCS: 36415; 80053; 85025; 73610; 73630; 93971; 99284; 96374; 96375; 96361; J0696; J1885

== ENCOUNTER 2018-12-17 22:12 | Inpatient (IN) | payer OTHER, MEDICARE ==
--- NOTE | 2018-12-17 23:35 | ED ---
Extremity Problem HPI - General Chief complaint: Extremity Problem,Nontraumatic Stated complaint: Foot swelling Time Seen by Provider: 12/17/18 22:31 Source: patient, family, RN notes reviewed, old records reviewed Mode of arrival: wheelchair Limitations: no limitations - History of Present Illness Initial comments: This is a 68-year-old male. Patient does say for evaluation regards to left lower extremity pain and swelling and edema left lower Shorty pain swelling and edema laying from left foot up in the left leg. And pain into his back. Patiemery prasad does have shortness of breath that is not different from his baseline over from nausea no vomiting. No significant pain. Patient has no other significant complaints aside from pain in left leg and swelling. Patient states he was seen here a few days ago diagnosed with cellulitis place on antibiotics and his symptoms are progressively worsened MD Complaint: extremity pain, extremity swelling -: days(s) Location: left, lower extremity History of Same: No -: Yes myalgia Radiation: none Severity scale (1-10): 6 Quality: aching Consistency: constant Improves with: nothing Worsens with: nothing Associated Symptoms: shortness of breath, myalgias, arthralgias - Related Data Home Medications Medication Instructions Recorded Confirmed Carvedilol 25 mg PO BID 01/17/14 12/17/18 Atorvastatin Calcium [Lipitor] 10 mg PO HS 09/01/17 12/17/18 Furosemide [Lasix] 20 mg PO DAILY 09/01/17 12/17/18 Gabapentin [Neurontin] 100 mg PO BID 09/01/17 12/17/18 Ipratropium-Albuterol Nebulize 3 ml INHALATION RT-Q8H 09/01/17 12/17/18 [Duoneb 0.5 mg-3 mg/3 ml Soln] Umeclidinium [place] [Incruse 1 puff INHALATION RT-DAILY PRN 09/01/17 12/17/18 Ellipta] Previous Rx's Medication Instructions Recorded Cephalexin [Keflex] 500 mg PO Q6HR 10 Days #40 cap 12/14/18 Allergies Allergy/AdvReac Type Severity Reaction Status Date / Time No Known Allergies Allergy Verified 12/17/18 23:01 Review of Systems ROS Statement: Those systems with pertinent positive or pertinent negative responses have been documented in the HPI. ROS Other: All systems not noted in ROS Statement are negative. Past Medical History Past Medical History: Heart Failure, COPD, GERD/Reflux, Hypertension, Liver Disease, Respiratory Disorder Additional Past Medical History / Comment(s): congestive heart failure, and hepatitis C treated X 2 History of Any Multi-Drug Resistant Organisms: None Reported Past Surgical History: Heart Catheterization, Hernia Repair, Orthopedic Surgery Additional Past Surgical History / Comment(s): shoulder surgery Past Anesthesia/Blood Transfusion Reactions: No Reported Reaction, Motion Sickness Past Psychological History: No Psychological Hx Reported Smoking Status: Former smoker Past Alcohol Use History: None Reported Past Drug Use History: Marijuana - Past Family History Mother Family Medical History: Cancer General Exam Limitations: no limitations General appearance: alert, in no apparent distress Head exam: Present: atraumatic, normocephalic, normal inspection Eye exam: Present: normal appearance, EOMI. Absent: scleral icterus, conjunctival injection, periorbital swelling ENT exam: Present: normal exam, mucous membranes moist Neck exam: Present: normal inspection. Absent: tenderness, meningismus, lymphadenopathy Respiratory exam: Present: normal lung sounds bilaterally, decreased breath sounds. Absent: respiratory distress, wheezes, rales, rhonchi, stridor Cardiovascular Exam: Present: regular rate, normal rhythm, normal heart sounds. Absent: systolic murmur, diastolic murmur, rubs, gallop, clicks GI/Abdominal exam: Present: soft, normal bowel sounds. Absent: distended, tenderness, guarding, rebound, rigid Extremities exam: Present: normal inspection, full ROM, normal capillary refill, pedal edema, calf tenderness, other (Foot and leg swelling). Absent: tenderness, joint swelling Back exam: Present: normal inspection Neurological exam: Present: alert, oriented X3, CN II-XII intact Psychiatric exam: Present: normal affect, normal mood Skin exam: Present: warm, dry, intact, normal color. Absent: rash Course Vital Signs 12/17/18 22:13 Temperature 99.3 F Pulse Rate 69 Respiratory 22 Rate Blood Pressure 141/71 O2 Sat by Pulse 96 Oximetry - Reevaluation(s) Reevaluation #1: 12/18/18 00:03 Medical record and prior ER visit is reviewed Reevaluation #2: 12/18/18 00:31 Medical history is again reviewed with multiple prior evaluations for PE including CT scans Reevaluation #3: 12/18/18 00:31 Patient with no significant clinical improvement, - Consultations Consultation #1: Spoke with Dr. Chandni martinez for admission Medical Decision Making - Medical Decision Making 68 male the ER for evaluation patient resents today for evaluation of cellulitis left lower extremity. Patient placed on antibiotics feel outpatient treatment, will admit for continued treatment and evaluation will get out of the morning for possible DVT - Lab Data Result diagrams: 12/17/18 23:53 12/17/18 23:53 Lab Results 12/17/18 12/17/18 12/17/18 Range/Units 23:53 23:53 23:53 WBC 2.5 L (3.8-10.6) k/uL RBC 3.42 L (4.30-5.90) m/uL Hgb 12.6 L (13.0-17.5) gm/dL Hct 35.7 L (39.0-53.0) % MCV 104.4 H (80.0-100.0) fL MCH 36.9 H (25.0-35.0) pg MCHC 35.3 (31.0-37.0) g/dL RDW 12.5 (11.5-15.5) % Macrocytosis Slight PT 10.6 (9.0-12.0) sec INR 1.0 (<1.2) APTT 26.2 (22.0-30.0) sec D-Dimer 8.04 H (<0.60) mg/L FEU Sodium 140 (137-145) mmol/L Potassium 4.0 (3.5-5.1) mmol/L Chloride 109 H (98-107) mmol/L Carbon Dioxide 26 (22-30) mmol/L Anion Gap 5 mmol/L BUN 20 (9-20) mg/dL Creatinine 1.21 (0.66-1.25) mg/dL Est GFR (CKD-EPI)AfAm 70 (>60 ml/min/1.73 sqM) Est GFR (CKD-EPI)NonAf 61 (>60 ml/min/1.73 sqM) Glucose 108 H (74-99) mg/dL Calcium 8.9 (8.4-10.2) mg/dL Magnesium 2.2 (1.6-2.3) mg/dL Total Bilirubin 1.1 (0.2-1.3) mg/dL AST 39 (17-59) U/L ALT 20 L (21-72) U/L Alkaline Phosphatase 112 (38-126) U/L Creatine Kinase 53 L (55-170) U/L Total Protein 6.3 (6.3-8.2) g/dL Albumin 3.1 L (3.5-5.0) g/dL - Radiology Data Radiology results: report reviewed (Chest x-rays negative for acute disease ultrasound left lower extremity is pending the morning), image reviewed Disposition Clinical Impression: Cellulitis of left foot, Leg edema, left Disposition: ADMITTED IP TO THIS HOSP Condition: Good Is patient prescribed a controlled substance at d/c from ED?: No Referrals: Aristides Mena DO [Primary Care Provider] - 1-2 days
--- NOTE | 2018-12-17 23:54 | XR ---
EXAMINATION TYPE: XR chest 2V DATE OF EXAM: 12/17/2018 COMPARISON: 12/11/2018 HISTORY: Leg swelling TECHNIQUE: Frontal and lateral views of the chest are obtained. FINDINGS: Heart and mediastinum are normal. Lungs are clear. Diaphragm is normal. There are chest le ads. Bony thorax appears normal. IMPRESSION: Normal chest. No change.
[2018-12-18 00:06] LABS: Basophils % (A) 0 %; Eosinophils # (A) 0.1 k/uL (0-0.7); Eosinophils % (A) 4 %; HCT 35.7 % (39.0-53.0); HGB 12.6 gm/dL (13.0-17.5); Lymphocytes # (A) 0.6 k/uL (1.0-4.8); Lymphocytes % (A) 25 %; MCH 36.9 pg (25.0-35.0); MCHC 35.3 g/dL (31.0-37.0); MCV 104.4 fL (80.0-100.0); Macrocytosis Slight; Mean Platelet Volume 9.2; Monocytes # (A) 0.2 k/uL (0-1.0); Monocytes % (A) 8 %; Neutrophils # (A) 1.6 k/uL (1.3-7.7); Neutrophils % (A) 61 %; RBC 3.42 m/uL (4.30-5.90); RDW 12.5 % (11.5-15.5); WBC 2.5 k/uL (3.8-10.6)
[2018-12-18 00:11] LABS: Albumin 3.1 g/dL (3.5-5.0); Calcium 8.9 mg/dL (8.4-10.2); Magnesium 2.2 mg/dL (1.6-2.3); Total Bilirubin 1.1 mg/dL (0.2-1.3); Total Protein 6.3 g/dL (6.3-8.2)
[2018-12-18 00:21] LABS: Partial Thromboplastin Time 26.2 sec (22.0-30.0); Prothrombin Time 10.6 sec (9.0-12.0)
[2018-12-18 00:25] LABS: D-Dimer 8.04 mg/L FEU (<0.60)
[2018-12-18] MEDS ORDERED: ENOXAPARIN 150 MG/ML SYRINGE SQ STA (00:30)
[2018-12-18] MEDS ORDERED: ENOXAPARIN 120 MG/0.8 ML SYRINGE SQ STA (00:36)
[2018-12-18 00:49] LABS: Platelet Count 47 k/uL (150-450)
[2018-12-18] MEDS: FUROSEMIDE 10 MG/ML 4 ML VIAL IV SCH ×2 (00:57→12:27)
[2018-12-18 00:59] LABS: Creatine Kinase MB 0.4 ng/mL (0.0-2.4)
[2018-12-18] MEDS ORDERED: MORPHINE SULFATE 2 MG/ML SYRINGE IVP STA (02:42)
--- NOTE | 2018-12-18 08:31 | US ---
EXAMINATION TYPE: US venous doppler duplex LE LT DATE OF EXAM: 12/18/2018 7:49 AM COMPARISON: None CLINICAL HISTORY: edema. Pain. Swelling. No hx blood clots. Started blood thinners last night. Ce llulitis. SIDE PERFORMED: Left TECHNIQUE: The lower extremity deep venous system is examined utilizing real time linear array sonog cee with graded compression, doppler sonography and color-flow sonography. VESSELS IMAGED: External Iliac Vein (EIV) Common Femoral Vein Deep Femoral Vein Greater Saphenous Vein * Femoral Vein Popliteal Vein Small Saphenous Vein * Proximal Calf Veins (* superficial vessels) Grayscale, color doppler, spectral doppler imaging performed of the deep veins of the lower extremiti es. There is normal flow, compressibility, vascular waveforms. Left Leg: Negative for DVT IMPRESSION: No sonographic evidence of deep venous thrombosis within the left lower extremity.
[2018-12-18] MEDS ORDERED: IPRATROPIUM 0.5 MG/2.5 ML NEBU INHALATION PRN (09:05)
[2018-12-18] MEDS ORDERED: ACETAMINOPHEN TAB 325 MG TAB PO PRN (09:06)
[2018-12-18] MEDS: GABAPENTIN 100 MG CAP PO SCH ×2 (09:58→20:36)
[2018-12-18] MEDS: CARVEDILOL 12.5 MG TAB PO SCH ×2 (09:59→18:55)
[2018-12-18] MEDS: HYDROcodone/APAP 5-325MG 1 EACH TAB PO PRN ×2 (10:04→16:33)
[2018-12-18 11:55] VITALS: BMI 35.6
[2018-12-18] MEDS: IPRATROPIUM-ALBUTEROL 3 ML NEB INHALATION SCH ×2 (16:30→23:53)
[2018-12-18] MEDS: ATORVASTATIN 10 MG TAB PO SCH (20:36)
[2018-12-18] MEDS ORDERED: FUROSEMIDE 10 MG/ML 2 ML VIAL IV SCH (21:00)
--- NOTE | 2018-12-18 23:25 | P.HPIM ---
History of Present Illness H&P Date: 12/18/18 Chief Complaint: Left leg swelling Patient is a 68-year-old male with a known history of abdominal aortic aneurysm 6 cm as per recent CT angiogram on 11/14/2018, peripheral vascular disease and liver cirrhosis likely alcohol related, hypertension and chronic CHF ejection fraction unknown came to ER with complaints of worsening left lower activity swelling and pain and minimal redness. Patient presented to ER initially on 12/14/2018 and was sent home with oral antibiotics for possible cellulitis. Patient continues to have left lower activity swelling and pain mainly. Denied any history of blood clots. 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 Patient is currently not on any anticoagulation. D-dimer is 8.04. Otherwise patient denied any complaints of chest pain. Patient does have baseline shortness of breath not increased compared to previous baseline. Denied any cough or sputum production. Patient is currently saturating well on room air. Patient does not have any right lower extremity swelling. No headache or dizziness or lightheadedness. Patient is not tachycardic. BNP level is 335 Left lower extremity venous duplex showed no evidence of DVT. WBC 2.5, platelets 47,000, hemoglobin 12.1, BUN 20 and creatinine 1.21 Chest x-ray showed no acute cardiopulmonary process. Patient was given a dose of Lovenox 120 mg in the ER. Review of Systems Constitutional: Patient denies any fever or chills . No generalized weakness or weight loss. Abdomen: Patient denied nausea vomiting and diarrhea and abdominal pain. Cardiovascular: Patient denies any chest pain or short of breath no palpitations. Respiratory: patient denied any cough is from production. No shortness of breath Neurologic: Patient denied any numbness or tingling headache. Musculoskeletal: Patient denies any complaints of joint swelling or deformity. Patient does have left lower swelling up to the knee. Tenderness and minimal redness. Skin: Negative Psychiatric: Negative Endocrine: No heat or cold intolerance. No recent weight gain. Genitourinary: No dysuria or hematuria. All other 14 point ROS negative except the above Past Medical History Past Medical History: Heart Failure, COPD, GERD/Reflux, Hypertension, Liver Disease, Respiratory Disorder Additional Past Medical History / Comment(s): congestive heart failure, and hepatitis C treated X 2 History of Any Multi-Drug Resistant Organisms: None Reported Past Surgical History: Heart Catheterization, Hernia Repair, Orthopedic Surgery Additional Past Surgical History / Comment(s): shoulder surgery Past Anesthesia/Blood Transfusion Reactions: No Reported Reaction, Motion Sickness Past Psychological History: No Psychological Hx Reported Smoking Status: Former smoker Past Alcohol Use History: None Reported Additional Past Alcohol Use History / Comment(s): pt stopped drinking 10 years ago Past Drug Use History: Marijuana - Past Family History Mother Family Medical History: Cancer Medications and Allergies Home Medications Medication Instructions Recorded Confirmed Type Carvedilol 25 mg PO BID 01/17/14 12/17/18 History Atorvastatin Calcium [Lipitor] 10 mg PO HS 09/01/17 12/17/18 History Furosemide [Lasix] 20 mg PO DAILY 09/01/17 12/17/18 History Gabapentin [Neurontin] 100 mg PO BID 09/01/17 12/17/18 History Ipratropium-Albuterol Nebulize 3 ml INHALATION RT-Q8H 09/01/17 12/17/18 History [Duoneb 0.5 mg-3 mg/3 ml Soln] Umeclidinium [place] [Incruse 1 puff INHALATION RT-DAILY PRN 09/01/17 12/17/18 History Ellipta] Cephalexin [Keflex] 500 mg PO Q6HR 10 Days #40 cap 12/14/18 12/17/18 Rx Allergies Allergy/AdvReac Type Severity Reaction Status Date / Time No Known Allergies Allergy Verified 12/17/18 23:01 Physical Exam Vitals: Vital Signs Temp Pulse Pulse Resp BP BP Pulse Ox 12/18/18 07:00 98.5 F 62 16 143/65 97 12/18/18 01:25 98 F 74 18 115/74 96 12/18/18 00:55 68 18 139/94 96 12/17/18 22:13 99.3 F 69 22 141/71 96 Intake and Output 12/17/18 12/18/18 12/18/18 22:59 06:59 14:59 Other: Voiding Method Urinal # Voids 2 Weight 122.47 kg PHYSICAL EXAMINATION: Patient is lying in the bed comfortably, no acute distress, awake alert and oriented.. HEENT: Normocephalic. Neck is supple. Pupils reactive. Nostrils clear. Oral cavity is moist. Ears reveal no drainage. Neck reveals no JVD, carotid bruits, or thyromegaly. CHEST EXAMINATION: Trachea is central. Symmetrical expansion. Lung navarro clear to auscultation and percussion. CARDIAC: Normal S1, S2 with no gallops. No murmurs ABDOMEN: Soft. Bowel sounds normal. No organomegaly. No abdominal bruits. Extremities: Patient does have left leg swelling up to the knee. Tender to palpation and minimal redness.. No clubbing or cyanosis Neurologically awake, alert, oriented x3 with well-coordinated movements. No focal deficits noted Skin: No rash or skin lesions. Psychiatric: Coperative. Nonsuicidal Musculoskeletal: No joint swelling or deformity. Normal range of motion. Results CBC & Chem 7: 12/17/18 23:53 12/17/18 23:53 Labs: Abnormal Lab Results - Last 24 Hours (Table) 12/17/18 12/17/18 12/17/18 Range/Units 23:53 23:53 23:53 WBC 2.5 L (3.8-10.6) k/uL RBC 3.42 L (4.30-5.90) m/uL Hgb 12.6 L (13.0-17.5) gm/dL Hct 35.7 L (39.0-53.0) % MCV 104.4 H (80.0-100.0) fL MCH 36.9 H (25.0-35.0) pg Plt Count 47 L (150-450) k/uL Lymphocytes # 0.6 L (1.0-4.8) k/uL D-Dimer 8.04 H (<0.60) mg/L FEU Chloride 109 H (98-107) mmol/L Glucose 108 H (74-99) mg/dL ALT 20 L (21-72) U/L Creatine Kinase 53 L (55-170) U/L Total Creatine Kinase (55-170) U/L Albumin 3.1 L (3.5-5.0) g/dL 12/17/18 Range/Units 23:53 WBC (3.8-10.6) k/uL RBC (4.30-5.90) m/uL Hgb (13.0-17.5) gm/dL Hct (39.0-53.0) % MCV (80.0-100.0) fL MCH (25.0-35.0) pg Plt Count (150-450) k/uL Lymphocytes # (1.0-4.8) k/uL D-Dimer (<0.60) mg/L FEU Chloride (98-107) mmol/L Glucose (74-99) mg/dL ALT (21-72) U/L Creatine Kinase (55-170) U/L Total Creatine Kinase 51 L (55-170) U/L Albumin (3.5-5.0) g/dL Thrombosis Risk Factor Assmnt - DVT/VTE Prophylaxis DVT/VTE Prophylaxis: Pharmacologic Prophylaxis ordered - Choose All That Apply Any of the Below Risk Factors Present?: Yes Each Factor Represents 1 point: Abnormal pulmonary function (COPD), Obesity (BMI >25) Each Risk Factor Represents 3 Points: Family history of DVT/PE Thrombosis Risk Factor Assessment Total Risk Factor Score: 5 Thrombosis Risk Factor Assessment Level: High Risk Assessment and Plan Assessment: Left lower extremity swelling and tenderness. Rule out vascular thrombosis. Venous duplex is negative for DVT. Abdominal aortic aneurysm 6 cm Elevated d-dimer Possible left leg cellulitis. Continue with antibiotics at this time. Chronic CHF with ejection fraction unknown Hepatitis C treated 2 Liver cirrhosis with history of alcohol abuse and hep C Hypertension GERD Neutropenia and thrombocytopenia secondary to liver disease Morbid obesity BMI 35.6 DVT prophylaxis. Patient is thrombocytopenic Previous history of smoking and marijuana use Plan: Patient was given a dose of Lovenox in the ER. We will consult vascular surgery for further evaluation. Continue with empiric antibiotics. ID was consulted. Unlikely CHF exacerbation, BNP is not was elevated. Will hold Lasix and monitor blood pressure closely. Continue to monitor closely. Prognosis is guarded at this time. Further recommendations based on the clinical course. Time with Patient: Greater than 30
[2018-12-19] MEDS: HYDROcodone/APAP 5-325MG 1 EACH TAB PO PRN ×2 (06:57→17:23)
[2018-12-19 07:36] LABS: Basophils % (A) 0 %; Eosinophils # (A) 0.1 k/uL (0-0.7); Eosinophils % (A) 3 %; HCT 33.8 % (39.0-53.0); HGB 11.7 gm/dL (13.0-17.5); Lymphocytes # (A) 0.7 k/uL (1.0-4.8); Lymphocytes % (A) 27 %; MCH 36.1 pg (25.0-35.0); MCHC 34.5 g/dL (31.0-37.0); MCV 104.7 fL (80.0-100.0); Macrocytosis Slight; Mean Platelet Volume 9.2; Monocytes # (A) 0.2 k/uL (0-1.0); Monocytes % (A) 7 %; Neutrophils # (A) 1.6 k/uL (1.3-7.7); Neutrophils % (A) 61 %; RBC 3.23 m/uL (4.30-5.90); RDW 12.5 % (11.5-15.5); WBC 2.6 k/uL (3.8-10.6)
[2018-12-19 07:39] LABS: Platelet Count 51 k/uL (150-450)
[2018-12-19 07:50] LABS: Calcium 8.5 mg/dL (8.4-10.2); Potassium 3.8 mmol/L (3.5-5.1)
[2018-12-19] MEDS: CARVEDILOL 12.5 MG TAB PO SCH ×2 (09:30→17:07)
[2018-12-19] MEDS: GABAPENTIN 100 MG CAP PO SCH (09:30)
[2018-12-19] MEDS: IPRATROPIUM-ALBUTEROL 3 ML NEB INHALATION SCH ×2 (12:27→20:13)
--- NOTE | 2018-12-19 12:39 | P.CONS ---
History of Present Illness - Reason for Consult Consult date: 12/18/18 Left lower extremity cellulitis Requesting physician: Justin Tariq - Chief Complaint Left foot and leg pain swelling and redness x few days - History of Present Illness Patient is a 68-year-old male presenting to the ER at [facility] with chief complaints of left foot and ankle and leg pain swelling redness that has been going on for the last few days patient denies any history of any trauma, started having more pain and swelling to the ankle area, with a pain described to be more of a dull aching or throbbing intensity about 7-8 out of 10 and no radiation worse with weightbearing and walking, with the same symptoms the patient was evaluated at this facility a few days ago in the ER she was diagnosed with cellulitis and has been treated with oral Keflex however the patient did not have any improvement subsequently presented back to the ER with the same symptoms, patient did have lower extremity Doppler that was negative for DVT, the patient did have low-grade fever of 100.3 the patient was leukopenic with a white count of 2.5, patient has been admitted to the hospital infection disease was consulted for further recommendation regarding antibiotic therapy Review of Systems Positive point has been mentioned in the HPI rest of the systems are negative Past Medical History Past Medical History: Heart Failure, COPD, GERD/Reflux, Hypertension, Liver Disease, Respiratory Disorder Additional Past Medical History / Comment(s): congestive heart failure, and hepatitis C treated X 2 History of Any Multi-Drug Resistant Organisms: None Reported Past Surgical History: Heart Catheterization, Hernia Repair, Orthopedic Surgery Additional Past Surgical History / Comment(s): shoulder surgery Past Anesthesia/Blood Transfusion Reactions: No Reported Reaction, Motion Sickness Past Psychological History: No Psychological Hx Reported Smoking Status: Former smoker Past Alcohol Use History: None Reported Additional Past Alcohol Use History / Comment(s): pt stopped drinking 10 years ago Past Drug Use History: Marijuana - Past Family History Mother Family Medical History: Cancer Medications and Allergies Home Medications Medication Instructions Recorded Confirmed Type Carvedilol 25 mg PO BID 01/17/14 12/17/18 History Atorvastatin Calcium [Lipitor] 10 mg PO HS 09/01/17 12/17/18 History Furosemide [Lasix] 20 mg PO DAILY 09/01/17 12/17/18 History Ipratropium-Albuterol Nebulize 3 ml INHALATION RT-Q8H 09/01/17 12/17/18 History [Duoneb 0.5 mg-3 mg/3 ml Soln] Umeclidinium [place] [Incruse 1 puff INHALATION RT-DAILY PRN 09/01/17 12/17/18 History Ellipta] Cephalexin [Keflex] 500 mg PO Q6HR 10 Days #40 cap 12/14/18 12/17/18 Rx Allergies Allergy/AdvReac Type Severity Reaction Status Date / Time No Known Allergies Allergy Verified 12/17/18 23:01 Physical Exam Vitals: Vital Signs Temp Pulse Pulse Resp BP BP Pulse Ox 12/18/18 14:57 97.6 F 63 17 105/63 97 12/18/18 07:00 98.5 F 62 16 143/65 97 12/18/18 01:25 98 F 74 18 115/74 96 12/18/18 00:55 68 18 139/94 96 12/17/18 22:13 99.3 F 69 22 141/71 96 Intake and Output 12/18/18 12/18/18 12/18/18 06:59 14:59 22:59 Output Total 350 Balance -350 Output: Urine 350 Other: Voiding Method Urinal # Voids 2 Weight 122.47 kg GENERAL DESCRIPTION: Elderly male lying in bed, no distress. No tachypnea or accessory muscle of respiration use. HEENT: Shows Pallor , no scleral icterus. Oral mucous membrane is dry. No pharyngeal erythema or thrush NECK: Trachea central, no thyromegaly. LUNGS: Unlabored breathing. Clear to auscultation anteriorly. No wheeze or crackle. HEART: S1, S2, regular rate and rhythm. No loud murmur ABDOMEN: Soft, no tenderness , guarding or rigidity, no organomegaly EXTREMITIES: Left ankle foot and lower leg he did have swelling and warmth to touch and slightly tender no open wound or any drainage SKIN: No rash, no masses palpable. NEUROLOGICAL: The patient is awake, alert, oriented x3, mood and affect normal. Results CBC & Chem 7: 12/19/18 06:47 12/19/18 06:47 Labs: Abnormal Lab Results - Last 24 Hours (Table) 12/17/18 12/17/18 12/17/18 Range/Units 23:53 23:53 23:53 WBC 2.5 L (3.8-10.6) k/uL RBC 3.42 L (4.30-5.90) m/uL Hgb 12.6 L (13.0-17.5) gm/dL Hct 35.7 L (39.0-53.0) % MCV 104.4 H (80.0-100.0) fL MCH 36.9 H (25.0-35.0) pg Plt Count 47 L (150-450) k/uL Lymphocytes # 0.6 L (1.0-4.8) k/uL D-Dimer 8.04 H (<0.60) mg/L FEU Chloride 109 H (98-107) mmol/L Glucose 108 H (74-99) mg/dL ALT 20 L (21-72) U/L Creatine Kinase 53 L (55-170) U/L Total Creatine Kinase (55-170) U/L Albumin 3.1 L (3.5-5.0) g/dL 12/17/18 Range/Units 23:53 WBC (3.8-10.6) k/uL RBC (4.30-5.90) m/uL Hgb (13.0-17.5) gm/dL Hct (39.0-53.0) % MCV (80.0-100.0) fL MCH (25.0-35.0) pg Plt Count (150-450) k/uL Lymphocytes # (1.0-4.8) k/uL D-Dimer (<0.60) mg/L FEU Chloride (98-107) mmol/L Glucose (74-99) mg/dL ALT (21-72) U/L Creatine Kinase (55-170) U/L Total Creatine Kinase 51 L (55-170) U/L Albumin (3.5-5.0) g/dL Assessment and Plan Assessment: 1-patient presented to the hospital with left foot ankle and leg pains swelling failing outpatient oral Keflex therapy in this patient US has been negative for DVT , main symptoms has been swelling and pain and did have warmth , with a component of cellulitis likely from gram-positive skin chio failing outpatient oral Therapy could be because of the burden of disease clinically doubt MRSA or gram-negative infection underlying inflammatory arthritis needs to be ruled out such as gout. (1) Cellulitis of left foot Current Visit: Yes Status: Acute Code(s): L03.116 - CELLULITIS OF LEFT LOWER LIMB SNOMED Code(s): 227003522 Plan: 1-cefazolin 2 g every 8 hours 2-Jayme wrap to the left foot and leg from just above the toe to below the knee 3-check a uric acid level We will follow on clinical condition and cultures to further adjust medication if needed Thank you for this consultation will follow this patient with you Time with Patient: Greater than 30
--- NOTE | 2018-12-19 14:17 | P.GSCN ---
History of Present Illness Consult date: 12/19/18 History of present illness: The patient is a 68-year-old male with a known history and recent diagnosis of an abdominal aortic aneurysm. He has been worked up as an outpatient by , and is currently awaiting cardiac clearance for endovascular repair. He also has a history of cirrhosis, hepatitis C, hypertension, COPD, congestive heart failure. He initially presented to the ER with swelling and redness of his left lower extremity. Initially, one week ago he was diagnosed with cellulitis and was given an antibiotic. He was discharged home. He re-presen miguel to the hospital yesterday due to worsening of the redness of his left leg. He thought there may have been a bite somewhere on the back of his leg, but does not see it currently. He initially was all started he was trimming grass. He states that his right leg has some similar pains but no swelling. He denies any chest pains, shortness of breath outside of his normal COPD, no fevers or chill s. Review of Systems 14 point ROS performed, pertinent positives and negatives per the HPI Past Medical History Past Medical History: Heart Failure, COPD, GERD/Reflux, Hypertension, Liver Disease, Respiratory Disorder Additional Past Medical History / Comment(s): congestive heart failure, and hepatitis C treated X 2 History of Any Multi-Drug Resistant Organisms: None Reported Past Surgical History: Heart Catheterization, Hernia Repair, Orthopedic Surgery Additional Past Surgical History / Comment(s): shoulder surgery Past Anesthesia/Blood Transfusion Reactions: No Reported Reaction, Motion Sickness Past Psychological History: No Psychological Hx Reported Smoking Status: Former smoker Past Alcohol Use History: None Reported Additional Past Alcohol Use History / Comment(s): pt stopped drinking 10 years ago Past Drug Use History: Marijuana - Past Family History Mother Family Medical History: Cancer Medications and Allergies Home Medications Medication Instructions Recorded Confirmed Type Carvedilol 25 mg PO BID 01/17/14 12/17/18 History Atorvastatin Calcium [Lipitor] 10 mg PO HS 09/01/17 12/17/18 History Furosemide [Lasix] 20 mg PO DAILY 09/01/17 12/17/18 History Ipratropium-Albuterol Nebulize 3 ml INHALATION RT-Q8H 09/01/17 12/17/18 History [Duoneb 0.5 mg-3 mg/3 ml Soln] Umeclidinium [place] [Incruse 1 puff INHALATION RT-DAILY PRN 09/01/17 12/17/18 History Ellipta] Cephalexin [Keflex] 500 mg PO Q6HR 10 Days #40 cap 12/14/18 12/17/18 Rx Allergies Allergy/AdvReac Type Severity Reaction Status Date / Time No Known Allergies Allergy Verified 12/17/18 23:01 Surgical - Exam Vital Signs Temp Pulse Resp BP Pulse Ox 99.3 F 69 22 141/71 96 12/17/18 22:13 12/17/18 22:13 12/17/18 22:13 12/17/18 22:13 12/17/18 22:13 Gen. is a pleasant operative male in no acute distress. HEENT is normal cephalic, atraumatic, missing dentition. Neck is supple, trachea is midline. Heart is regular in rate and rhythm. Lungs are clear bilaterally. Abdomen is rotund, nondistended, nontender. Extremities show no clubbing or cyanosis. There is 2+ pitting edema the left lower extremity. Minimal if any cellulitic changes or erythema. There is some chronic venous stasis changes. There is a palpable posterior tibial and dorsalis pedis on the left. Is a palpable posterior tibial on the right. Adequate capillary refill. Motor sensory intac t. Results Ultrasound reveals no evidence of DVT Computed tomography scan from previous is again reviewed. 6 cm infrarenal abdominal aortic aneurysm - Labs 12/19/18 06:47 12/19/18 06:47 Abnormal Lab Results - Last 24 Hours (Table) 12/19/18 12/19/18 Range/Units 06:47 06:47 WBC 2.6 L (3.8-10.6) k/uL RBC 3.23 L (4.30-5.90) m/uL Hgb 11.7 L (13.0-17.5) gm/dL Hct 33.8 L (39.0-53.0) % MCV 104.7 H (80.0-100.0) fL MCH 36.1 H (25.0-35.0) pg Plt Count 51 L (150-450) k/uL Lymphocytes # 0.7 L (1.0-4.8) k/uL BUN 22 H (9-20) mg/dL Glucose 100 H (74-99) mg/dL Diabetes panel 12/19/18 Range/Units 06:47 Sodium 138 (137-145) mmol/L Potassium 3.8 (3.5-5.1) mmol/L Chloride 107 (98-107) mmol/L Carbon Dioxide 24 (22-30) mmol/L BUN 22 H (9-20) mg/dL Creatinine 1.09 (0.66-1.25) mg/dL Glucose 100 H (74-99) mg/dL Calcium 8.5 (8.4-10.2) mg/dL Calcium panel 12/19/18 Range/Units 06:47 Calcium 8.5 (8.4-10.2) mg/dL Pituitary panel 12/19/18 Range/Units 06:47 Sodium 138 (137-145) mmol/L Potassium 3.8 (3.5-5.1) mmol/L Chloride 107 (98-107) mmol/L Carbon Dioxide 24 (22-30) mmol/L BUN 22 H (9-20) mg/dL Creatinine 1.09 (0.66-1.25) mg/dL Glucose 100 H (74-99) mg/dL Calcium 8.5 (8.4-10.2) mg/dL Adrenal panel 12/19/18 Range/Units 06:47 Sodium 138 (137-145) mmol/L Potassium 3.8 (3.5-5.1) mmol/L Chloride 107 (98-107) mmol/L Carbon Dioxide 24 (22-30) mmol/L BUN 22 H (9-20) mg/dL Creatinine 1.09 (0.66-1.25) mg/dL Glucose 100 H (74-99) mg/dL Calcium 8.5 (8.4-10.2) mg/dL Assessment and Plan Assessment: #1 6 cm renal abdominal aortic aneurysm #2 edema of his left lower extremity #3 cellulitis, appears resolved at this time #4 cirrhosis #5 COPD #6 hypertension Plan: Currently the patient does not exhibit any signs of peripheral vascular disease with palpable pulses. He does have the infrarenal abdominal aortic aneurysm and is supposed to be obtaining cardiac clearance for intervention. No vasular intervention planned at this time, but hopeful that evals per cardio and GI to assist in obtaining clearance for outpatient repair in very near future
[2018-12-19] MEDS: COLCHICINE 0.6 MG EACH PO SCH (18:16)
--- NOTE | 2018-12-19 18:37 | PN ---
PROGRESS NOTE DATE OF SERVICE: 12/19/2018. REASON FOR FOLLOWUP: 1. Left lower extremity cellulitis. 2. Possible gouty arthritis. INTERVAL HISTORY: The patient is currently afebrile. The patient's pain to the left ankle and the leg area has decreased in intensity. Now complaining of some pain to the right ankle area more of a dull aching. The patient denies having any chest pain. No shortness of breath. No cough. No nausea, vomiting, abdominal pain, no diarrhea. PHYSICAL EXAMINATION: Blood pressure 117/74 with a pulse of 50, temperature 98.3. He is 96% on room air. General description is an elderly male lying in bed in no distress. Respiratory system: Unlabored breathing. Clear to auscultation anteriorly. Heart S1, S2. Regular rate and rhythm. Abdomen soft, no tenderness. Left ankle area swelling has decreased. No redness. LABS: No new labs have been obtained today. We did order a uric acid which came high at 9.2. DIAGNOSTIC IMPRESSION AND PLAN: Patient admitted to the hospital with left ankle leg pain, swelling, redness, now with evidence of gouty arthritis on the basis of an elevated uric acid level. Culture . Continue short course of Cefazolin along with Jayme wrap to keep the swelling down. Continue supportive care. MMODL / IJN: [id number] /
[2018-12-19] MEDS: ATORVASTATIN 10 MG TAB PO SCH (20:38)
[2018-12-20] MEDS ORDERED: IPRATROPIUM-ALBUTEROL 3 ML NEB ONE
[2018-12-20] MEDS ORDERED: HYDROcodone/APAP 5-325MG 1 EACH TAB ONE
[2018-12-20] MEDS: IPRATROPIUM-ALBUTEROL 3 ML NEB INHALATION SCH ×3 (07:31→16:02)
[2018-12-20] MEDS: CARVEDILOL 12.5 MG TAB PO SCH (07:58)
[2018-12-20] MEDS: COLCHICINE 0.6 MG EACH PO SCH (10:29)
[2018-12-20] MEDS: HYDROcodone/APAP 5-325MG 1 EACH TAB PO PRN ×2 (10:31→16:13)
--- NOTE | 2018-12-20 10:38 | P.PN ---
Subjective Progress Note Date: 12/19/18 Principal diagnosis: Left leg swelling Peripheral vascular disease and abdominal aortic aneurysm Patient is a 68-year-old male with a known history of abdominal aortic aneurysm 6 cm as per recent CT angiogram on 11/14/2018, peripheral vascular disease and liver cirrhosis likely alcohol related, hypertension and chronic CHF ejection fraction unknown came to ER with complaints of worsening left lower activity swelling and pain and minimal redness. Patient presented to ER initially on 12/14/2018 and was sent home with oral antibiotics for possible cellulitis. Patient continues to have left lower activity swelling and pain mainly. Denied any history of blood clots. 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 Patient is currently not on any anticoagulation. D-dimer is 8.04. Otherwise patient denied any complaints of chest pain. Patient does have baseline shortness of breath not increased compared to previous baseline. Denied any cough or sputum production. Patient is currently saturating well on room air. Patient does not have any right lower extremity swelling. No headache or dizziness or lightheadedness. Patient is not tachycardic. BNP level is 335 Left lower extremity venous duplex showed no evidence of DVT. WBC 2.5, platelets 47,000, hemoglobin 12.1, BUN 20 and creatinine 1.21 Chest x-ray showed no acute cardiopulmonary process. Patient was given a dose of Lovenox 120 mg in the ER. 12/19/2018 Patient still having left lower extremity pain and swelling. Patient was seen by vascular surgery and currently being assessed for possible abdominal aortic aneurysm repair. Patient is otherwise continued on antibiotics. Cellulitis seems to be improving. Patient pulses are palpable. No other signs of limb ischemia. Cardiology was consulted for clearance. patient denied any complains of chest pain or shortness of breath. No fever no chills. No abdominal pain. No headache or dizziness or lightheadedness. Current medications reviewed. Objective - Vital Signs Vital signs: Vital Signs Temp 98.2 F 12/19/18 21:00 Pulse 81 12/19/18 21:00 Resp 20 12/19/18 21:31 BP 139/80 12/19/18 21:00 Pulse Ox 95 12/19/18 21:00 Intake & Output 12/19/18 12/19/18 12/20/18 06:59 18:59 06:59 Intake Total 1080 50 950 Output Total 1050 Balance 30 50 950 Weight 133 kg Intake: Intake, IV Titration 50 Amount ceFAZolin 2 gm In Sodium 50 Chloride 0.9% 50 ml @ 100 mls/hr IVPB Q8HR [facility] Rx# :[id number] Oral 1080 950 Output: Urine 1050 Other: Voiding Method Urinal Urinal Urinal # Voids 3 2 - Exam PHYSICAL EXAMINATION: Patient is lying in the bed comfortably, no acute distress, awake alert and oriented.. HEENT: Normocephalic. Neck is supple. Pupils reactive. Nostrils clear. Oral cavity is moist. Ears reveal no drainage. Neck reveals no JVD, carotid bruits, or thyromegaly. CHEST EXAMINATION: Trachea is central. Symmetrical expansion. Lung navarro clear to auscultation and percussion. CARDIAC: Normal S1, S2 with no gallops. No murmurs ABDOMEN: Soft. Bowel sounds normal. No organomegaly. No abdominal bruits. Extremities: Patient does have left leg swelling up to the knee. Tender to palpation and minimal redness.. No clubbing or cyanosis Neurologically awake, alert, oriented x3 with well-coordinated movements. No focal deficits noted Skin: No rash or skin lesions. Psychiatric: Coperative. Nonsuicidal Musculoskeletal: No joint swelling or deformity. Normal range of motion. - Labs CBC & Chem 7: 12/19/18 06:47 12/19/18 06:47 Labs: Abnormal Lab Results - Last 24 Hours (Table) 12/19/18 12/19/18 12/19/18 Range/Units 06:47 06:47 16:00 WBC 2.6 L (3.8-10.6) k/uL RBC 3.23 L (4.30-5.90) m/uL Hgb 11.7 L (13.0-17.5) gm/dL Hct 33.8 L (39.0-53.0) % MCV 104.7 H (80.0-100.0) fL MCH 36.1 H (25.0-35.0) pg Plt Count 51 L (150-450) k/uL Lymphocytes # 0.7 L (1.0-4.8) k/uL BUN 22 H (9-20) mg/dL Glucose 100 H (74-99) mg/dL Uric Acid 9.2 H (3.5-8.5) mg/dL Assessment and Plan Assessment: Left lower extremity swelling and tenderness Due to cellulitis. Rule out vascular thrombosis. Venous duplex is negative for DVT. pulses palpable. Abdominal aortic aneurysm 6 cm Elevated d-dimer Possible left leg cellulitis. Continue with antibiotics at this time. Chronic CHF with ejection fraction unknown Hepatitis C treated 2 Liver cirrhosis with history of alcohol abuse and hep C Hypertension GERD Neutropenia and thrombocytopenia secondary to liver disease Morbid obesity BMI 35.6 DVT prophylaxis. Patient is thrombocytopenic Previous history of smoking and marijuana use Plan: Patient was given a dose of Lovenox in the ER. We will consult vascular surgery for further evaluation. Continue with empiric antibiotics. ID was consulted. Unlikely CHF exacerbation, BNP is not was elevated. monitor blood pressure closely. Continue to monitor closely. Prognosis is guarded at this time. Further recommendations based on the clinical course. Time with Patient: Greater than 30
[2018-12-20] MEDS ORDERED: FUROSEMIDE 20 MG TAB PO SCH (10:45)
[2018-12-20 12:00] LABS: Calcium 8.6 mg/dL (8.4-10.2)
[2018-12-20 12:20] LABS: Basophils % (A) 0 %; Eosinophils # (A) 0.1 k/uL (0-0.7); Eosinophils % (A) 2 %; HCT 32.8 % (39.0-53.0); HGB 11.1 gm/dL (13.0-17.5); Lymphocytes # (A) 0.7 k/uL (1.0-4.8); Lymphocytes % (A) 24 %; MCH 35.7 pg (25.0-35.0); MCHC 33.7 g/dL (31.0-37.0); MCV 105.8 fL (80.0-100.0); Macrocytosis Slight; Mean Platelet Volume 9.8; Monocytes # (A) 0.2 k/uL (0-1.0); Monocytes % (A) 9 %; Neutrophils # (A) 1.7 k/uL (1.3-7.7); Neutrophils % (A) 62 %; RDW 12.6 % (11.5-15.5); WBC 2.8 k/uL (3.8-10.6)
[2018-12-20 12:25] LABS: Platelet Count 52 k/uL (150-450)
[2018-12-20 13:01] VITALS: BP 100/65; RESP 18; TEMP 98
[2018-12-20] MEDS ORDERED: NAPROXEN 250 MG TAB PO SCH (13:45)
--- NOTE | 2018-12-20 14:09 | P.CRDCN ---
History of Present Illness History of present illness: This is a pleasant 68-year-old male past medical history significant for COPD, hypertension, chronic hepatitis C, abdominal aortic aneurysm and GERD. He follows in the office with Dr. Thorpe. We have been asked to see him in consultation for heart failure. He presented to the hospital with symptoms of lower extremity pain and swelling. Initially his left foot was painful to touch, swollen around the ankles and uncomfortable. The discomfort was so bad even the blanket touching his skin was unbearable. Last evening the discomfort in the left leg and foot started to subside however this morning upon waking up and he is having a similar type discomfort to the right lower extremity. He denies chest pain, shortness of breath, dizziness or palpitations. He is currently in t he process of undergoing pre-operative evaluation with stress testing, EGD and colonoscopy prior to AAA repair. He recently had an echocardiogram in the office revealing preserved LV systolic function with EF 50%. Chest xray is negative for an acute cardiopulmonary process. Laboratory data reviewed, WBC 2.8, hgb 11.1, plt 52, d-dimer 8.04, sodium 135, potassium 4, creatinine 1.04, magnesium 2.2, u river acid 9.2, troponin negative x1, proBNP 335. Current daily cardiac medications include atorvastatin 10 mg daily, lasix 20 mg daily and coreg 25 mg BID. At the time of my exam: CONSTITUTIONAL: Denies fever. Denies chills. EYES: Denies blurred vision. Denies vision changes. Denies eye pain. EARS, NOSE, MOUTH & THROAT: Denies headache. Denies sore throat. Denies ear pain. CARDIOVASCULAR: Denies chest pain. Denies shortness of breath. Denies orthopnea. Denies PND. Denies palpitations. RESPIRATORY: Denies cough. GASTROINTESTINAL: Denies abdominal pain. Denies diarrhea. Denies constipation. Denies nausea. Denies vomiting. MUSCULOSKELETAL: Denies myalgias. INTEGUMENTARY: Denies pruitis. Denies rash. NEUROLOGIC: Denies numbness. Denies tingling. Denies weakness. PSYCHIATRIC: Denies anxiety. Denies depression. ENDOCRINE: Denies fatigue. Denies weight change. Denies polydipsia. Denies polyurina. GENITOURINARY: Denies burning, hematuria or urgency with micturation. HEMATOLOGIC: Denies history of anemia. Denies bleeding. Blood pressure 100/65 heart rate 57 afebrile maintaining oxygen saturation on room air GENERAL: This is a 68-year-old male in no apparent distress at the rowena e of my examination. HEENT: Head is atraumatic, normocephalic. Pupils are equal, round. Sclerae anic teric. Conjunctivae are clear. Mucous membranes of the mouth are moist. Neck is supple. There is no jugular venous distention. No carotid bruit is heard. LUNGS: Clear to auscultation no wheezes, rales or rhonchi. No chest wall tenderness is noted on palpation or with deep breathing. HEART: Regular rate and rhythm without murmurs, rubs or gallops. S1 and S2 heard. ABDOMEN: Soft, nontender. Bowel sounds are heard. No organomegaly noted. EXTREMITIES: Swelling noted around the left ankle joint, nonpitting. Significant discomfort to the right lower extremity. VASCULAR: Radial and dorsalis pedis pulses palpated, strong pulse noted to the left dorsalis pedis and a weaker but present pulse noted on the right. No evidence of clubbing. NEUROLOGIC: Patient is awake, alert and oriented x3. ASSESSMENT Lower extremity pain and swelling, suggestive of gout with elevated uric acid. Maintained on colchicine Hypertension COPD Abdominal aortic aneurysm Chronic hepatitis C Thrombocytopenia Neutropenia Elevated D-dimer PLAN Clinically no heart failure symptoms. He is euvolemic. Agree with diagnosis of gout. Continue current medical regimen. As far as pre-op clearance, the patient was seen by Dr. Thorpe and advised a stress test. This has already been scheduled for 12/27 at 0945. Recommend pro ceeding with outpatient pre-op evaluation. We will continue to follow as needed, please call with questions or concerns. Thank you kindly for this consultation. Nurse Practitioner note has been reviewed, I agree with a documented findings and plan of care. Patient was seen and examined. Past Medical History Past Medical History: Heart Failure, COPD, GERD/Reflux, Hypertension, Liver Disease, Respiratory Disorder Additional Past Medical History / Comment(s): congestive heart failure, and hepatitis C treated X 2 History of Any Multi-Drug Resistant Organisms: None Reported Past Surgical History: Heart Catheterization, Hernia Repair, Orthopedic Surgery Additional Past Surgical History / Comment(s): shoulder surgery Past Anesthesia/Blood Transfusion Reactions: No Reported Reaction, Motion Sickness Past Psychological History: No Psychological Hx Reported Smoking Status: Former smoker Past Alcohol Use History: None Reported Additional Past Alcohol Use History / Comment(s): pt stopped drinking 10 years ago Past Drug Use History: Marijuana - Past Family History Mother Family Medical History: Cancer Medications and Allergies Home Medications Medication Instructions Recorded Confirmed Type Carvedilol 25 mg PO BID 01/17/14 12/17/18 History Atorvastatin Calcium [Lipitor] 10 mg PO HS 09/01/17 12/17/18 History Furosemide [Lasix] 20 mg PO DAILY 09/01/17 12/17/18 History Ipratropium-Albuterol Nebulize 3 ml INHALATION RT-Q8H 09/01/17 12/17/18 History [Duoneb 0.5 mg-3 mg/3 ml Soln] Umeclidinium [place] [Incruse 1 puff INHALATION RT-DAILY PRN 09/01/17 12/17/18 History Ellipta] Cephalexin [Keflex] 500 mg PO Q6HR 10 Days #40 cap 12/14/18 12/17/18 Rx Allergies Allergy/AdvReac Type Severity Reaction Status Date / Time No Known Allergies Allergy Verified 12/17/18 23:01 Physical Exam Vitals: Vital Signs Temp Pulse Pulse Resp BP Pulse Ox 12/20/18 13:00 98 F 57 L 18 100/65 95 12/20/18 08:54 72 12/20/18 08:41 68 12/20/18 08:00 20 12/19/18 21:31 20 12/19/18 21:00 98.2 F 81 24 139/80 95 12/19/18 20:27 72 12/19/18 20:13 73 97 Intake and Output 12/19/18 12/20/18 12/20/18 22:59 06:59 14:59 Intake Total 950 Balance 950 Intake: Oral 950 Other: Voiding Method Urinal Urinal # Voids 2 Results 12/20/18 11:16 12/20/18 11:16 CBC 12/20/18 Range/Units 11:16 WBC 2.8 L (3.8-10.6) k/uL RBC 3.10 L (4.30-5.90) m/uL Hgb 11.1 L (13.0-17.5) gm/dL Hct 32.8 L (39.0-53.0) % Plt Count 52 L (150-450) k/uL Comprehensive Metabolic Panel 12/20/18 Range/Units 11:16 Sodium 135 L (137-145) mmol/L Potassium 4.0 (3.5-5.1) mmol/L Chloride 107 (98-107) mmol/L Carbon Dioxide 23 (22-30) mmol/L BUN 18 (9-20) mg/dL Creatinine 1.04 (0.66-1.25) mg/dL Glucose 119 H (74-99) mg/dL Calcium 8.6 (8.4-10.2) mg/dL Current Medications Generic Name Dose Route Start Last Admin Trade Name Freq PRN Reason Stop Dose Admin Acetaminophen 650 mg 12/18/18 09:06 Tylenol Tab PO Q6HR PRN Fever and/ or Pain Hydrocodone Bitart/Acetaminophen 1 each 12/18/18 09:06 12/20/18 10:31 [place] 5-325 PO 1 each Q6HR PRN Administration Moderate Pain Albuterol/Ipratropium 3 ml 12/18/18 16:00 12/20/18 08:41 Duoneb 0.5 Mg-3 Mg/3 Ml Soln INHALATION 3 ml RT-Q8H CODI Administration Atorvastatin Calcium 10 mg 12/18/18 21:00 12/19/18 20:38 Lipitor PO 10 mg HS CODI Administration Carvedilol 25 mg 12/18/18 09:15 12/20/18 07:58 Coreg PO 25 mg BID-W/MEALS CODI Administration Colchicine 0.6 mg 12/19/18 17:31 12/20/18 10:29 Colcrys PO 0.6 mg BID CODI Administration Furosemide 20 mg 12/20/18 10:45 12/20/18 10:51 Lasix PO 20 mg DAILY CODI Administration Cefazolin Sodium 2 gm/ Sodium 50 mls @ 100 mls/hr 12/18/18 16:00 12/20/18 07:58 Chloride IVPB 100 mls/hr Q8HR CODI Administration Ipratropium [place] 0.5 mg 12/18/18 09:05 Atrovent Nebulized INHALATION RT-QID PRN Shortness Of Breath Intake and Output 12/19/18 12/20/18 12/20/18 22:59 06:59 14:59 Intake Total 950 Balance 950 Intake: Oral 950 Other: Voiding Method Urinal Urinal # Voids 2 12/20/18 11:16 12/20/18 11:16
[2018-12-20 16:14] VITALS: PULSE 68
--- NOTE | 2018-12-20 18:36 | CONS ---
CONSULTATION DATE OF SERVICE: December 20, 2018. REQUESTING PHYSICIAN: Dr. Mena. REASON FOR CONSULTATION: Cirrhosis of the liver/history of chronic hepatitis C infection. HISTORY OF PRESENT ILLNESS: The patient is a 68-year-old pleasant white male who was admitted to the hospital 2 days ago when he presented with lower extremity swelling and redness consistent with acute cellulitis. The patient has been having symptoms for the last 1 week duration. He noticed more pain and swelling of the right lower extremity and 2 days later it was involving the left lower extremity. The pain was extremely intense and was throbbing. Came to the emergency room and subsequently diagnosed with cellulitis and Dr. Ramos has been consulted and presently on antibiotics and feeling much better. The patient is known to me from previous office visits. He was diagnosed with liver cirrhosis secondary to chronic hepatitis C infection that was treated with antiviral therapy approximately 6 months ago and he had achieved end of treatment response. The patient was scheduled for an EGD and colonoscopy as a part of evaluation of anemia. However, was canceled a week ago because of hospitalization with acute cellulitis. He denies any abdominal pain. Reports no nausea, vomiting. Denies any rectal bleeding or melena. PAST MEDICAL HISTORY: Significant for cirrhosis of the liver, history of chronic hepatitis C status post antiviral therapy and had an end of treatment response. He has history of hypertension, hyperlipidemia, congestive heart failure, COPD. PAST SURGICAL HISTORY: Hernia repair, shoulder surgery, cardiac catheterization. MEDICATIONS: At home include Lipitor, Lasix, albuterol, DuoNeb, and Ellipta, Keflex, and carvedilol. ALLERGIES: None. SOCIAL HISTORY: No smoking. Remote history of alcohol use, quit drinking about 10 years ago. FAMILY HISTORY: Mother had some kind of cancer. REVIEW OF SYSTEMS: Cardiopulmonary: He denies any chest pain, shortness of breath. GENITOURINARY: No dysuria or hematuria. MUSCULOSKELETAL unremarkable. SKIN unremarkable other than cellulitis on both lower extremities. NEUROLOGY unremarkable. PSYCHIATRIC unremarkable. ENT/vision unremarkable. CONSTITUTIONAL: No recent weight loss. No fever, chills, night sweats. ENDOCRINE unremarkable. PHYSICAL EXAMINATION: He appears comfortable. No apparent distress. VITAL SIGNS: Stable. Blood pressure is 100/65, pulse rate 57, temperature 98.1. HEENT examination unremarkable. Conjunctivae pink. Sclerae anicteric. Oral cavity no lesions. NECK: No JVD or lymph node enlargement. CHEST: The chest was clear to auscultation. Heart regular rate and rhythm. ABDOMEN: Soft. Bowel sounds are positive. No organomegaly. EXTREMITIES no pedal edema. There was bilateral redness of the skin noted bilaterally consistent with acute cellulitis. NEUROLOGIC: Alert and oriented x3. No focal deficits. LABS: At the time of admission to the hospital, WBC 2.4, hemoglobin 12.6, platelets are normal at 47. Today 2.8, hemoglobin 11.1, platelets 52,000, PTT/ INR is within normal limits. ALT, AST, bilirubin and alkaline phosphatase are all within normal limits. Albumin is 3.1. Ultrasound of the lower extremities did not show any evidence of DVT. IMPRESSION: 1. Bilateral lower extremity cellulitis for which Dr. Ramos following the patient closely. 2. History of cirrhosis of the liver. Related to chronic hepatitis C infection and remote history of alcohol use. He was treated with antiviral therapy and patient achieved end of treatment response approximately 6 months ago. His serum transaminases are within normal limits. 3. History of congestive heart failure. 4. Abdominal aortic aneurysm which cardiology is following the patient closely. RECOMMENDATIONS: 1. Continue with broad-spectrum antibiotics. 2. In regards to the chronic hepatitis C infection/cirrhosis of the liver, his liver disease appears to be well compensated at the present time. Serum transaminase within normal limits. 3. EGD and colonoscopy that were scheduled for last week will be rescheduled in 1-2 weeks following discharge from the hospital. Thank you for this consultation. We will follow the patient closely during his hospital stay. AMEL / IJN: [id number] /
--- NOTE | 2018-12-20 22:18 | PN ---
PROGRESS NOTE DATE OF SERVICE: 12/20/2018. REASON FOR FOLLOWUP: Left ankle cellulitis and gouty arthritis. INTERVAL HISTORY: The patient was seen on rounds earlier this afternoon. The patient did have overall improvement in his left ankle pain and swelling area, still complaining of some pain to the right ankle. Did have swelling, but no significant redness. No chest pain, shortness of breath or cough. No abdominal pain. No diarrhea. PHYSICAL EXAMINATION: Blood pressure 100/65 with a pulse of 65, temperature 98. He is 95% on room air. General description is an elderly male up in the room in no distress. Respiratory system: Unlabored breathing. Clear to auscultation anteriorly. Heart S1, S2. Regular rate and rhythm. Abdomen soft, no tenderness. Left ankle some swelling. No redness, no open wound or any drainage. LABS: Hemoglobin 11.1, white count 2.8. BUN of 18, creatinine 1.04. DIAGNOSTIC IMPRESSION AND PLAN: Patient admitted to the hospital with swelling and pain to the left ankle area, likely a gouty arthritis with some involvement of the right ankle area. Patient may benefit from colchicine, low diet and short course of oral Ceftin and Keflex and continue supportive care. MMODL / IJN: [id number] /
--- NOTE | 2018-12-21 | P.DS ---
Providers Date of admission: 12/20/18 10:25 Expected date of discharge: 12/20/18 Attending physician: Juanjo Ratliff Consults: 12/18/18 15:07 Consult Physician Routine Consulting Provider: Kelly Ramos Consult Reason/Comments: cellulitis Do you want consulting provider notified?: Yes 12/18/18 23:07 Consult Physician Routine Consulting Provider: Georgi Reynoso Consult Reason/Comments: LLE swelling and pain hx of PVD Do you want consulting provider notified?: Yes 12/19/18 13:31 Consult Physician Routine Consulting Provider: Clement Mc Consult Reason/Comments: patient of record, CHF, AAA Do you want consulting provider notified?: Yes 12/19/18 16:35 Consult Physician Routine Consulting Provider: Barbara Palomares Consult Reason/Comments: pt of record Do you want consulting provider notified?: Yes Primary care physician: [facility] Course: Hospital course: Patient admitted with left lower extremity cellulitis. Treated with IV Ancef. Also felt to have gout flare up of the left ankle. Initially treated with colchicine switched over to naproxen today. Left lower extremity redness much improved. Patient has compensated cirrhosis from hepatitis C. Being followed by Dr. Lucía Palomares. Today-care was discussed with the patient. Questions were answered. He'll follow with Dr. Lucía Palomares as an outpatient. His been put on naproxen for gout.. Also allopurinol is being started from tomorrow. Pain is improving. Also has lower extremity swelling from hypoalbuminemia. Aldactone is being admitted. Patient to also use Jayme wraps. Care was discussed in detail with the patient. At the nurse. Questions were answered.patient was seen by cardiology for preop clearance. Patient is scheduled for a stress test on December [address] Aniceto muñoz. Patient also seen by Dr. Chelsi Lee. For the AAA. Surgery will follow as an outpatient.. Discussion and discharge planning more than 35 minutes Consultation: Dr. Llamas from ID Dr. Lucía Palomares from GI Dr. Chelsi Lee from vascular surgery On examination: 98, 57, 18, 100/65, 95% room air Mild swelling of the left ankle Abdomen soft nontender INVESTIGATIONS, reviewed in the clinical context: White count 2.8 hemoglobin 11.1 platelets 52 potassium 4 creatine 1.04 venous Doppler negative for DVT Discharge diagnoses: -Acute left lower extremity cellulitis -Acute gout the left ankle, with hyperuricemia -Compensated cirrhosis secondary to hepatitis C -Pancytopenia likely from cirrhosis -COPD in an ex-smoker -GERD -Essential hypertension -Chronic congestive heart failure, EF not known -Abdominal aortic aneurysm 6 cm Disposition: Home Patient Condition at Discharge: Stable Plan - Discharge Summary Discharge Rx Participant: Yes New Discharge Prescriptions: New Naproxen [Naprosyn] 250 mg PO TID #15 tab Spironolactone [Aldactone] 25 mg PO DAILY #30 tablet Allopurinol [Zyloprim] 100 mg PO DAILY #30 tablet Continue Carvedilol 25 mg PO BID Atorvastatin Calcium [Lipitor] 10 mg PO HS Umeclidinium [place] [Incruse Ellipta] 1 puff INHALATION RT-DAILY PRN PRN Reason: Shortness Of Breath Ipratropium-Albuterol Nebulize [Duoneb 0.5 mg-3 mg/3 ml Soln] 3 ml INHALATION RT-Q8H Furosemide [Lasix] 20 mg PO DAILY Cephalexin [Keflex] 500 mg PO Q6HR 10 Days #20 cap Discharge Medication List Carvedilol 25 mg PO BID 01/17/14 [History] Atorvastatin Calcium [Lipitor] 10 mg PO HS 09/01/17 [History] Furosemide [Lasix] 20 mg PO DAILY 09/01/17 [History] Ipratropium-Albuterol Nebulize [Duoneb 0.5 mg-3 mg/3 ml Soln] 3 ml INHALATION RT-Q8H 09/01/17 [History] Umeclidinium [place] [Incruse Ellipta] 1 puff INHALATION RT-DAILY PRN 09/01/17 [History] Allopurinol [Zyloprim] 100 mg PO DAILY #30 tablet 12/20/18 [Rx] Cephalexin [Keflex] 500 mg PO Q6HR 10 Days #20 cap 12/20/18 [Rx] Naproxen [Naprosyn] 250 mg PO TID #15 tab 12/20/18 [Rx] Spironolactone [Aldactone] 25 mg PO DAILY #30 tablet 12/20/18 [Rx] Follow up Appointment(s)/Referral(s): Riley Thorpe MD [STAFF PHYSICIAN] - 12/27/18 9:45 am Georgi Reynoso DO [STAFF PHYSICIAN] - 01/02/19 3:45 pm Aristides Mena DO [Primary Care Provider] - 01/04/19 2:15 pm Patient Instructions/Handouts: Allopurinol (By mouth), Spironolactone (By mouth), Naproxen (By mouth), Cellulitis (DC), Leg Edema (ED), Fall Prevention (DC) Activity/Diet/Wound Care/Special Instructions: DC home with Jayme wrap to both the ankles Discharge Disposition: HOME SELF-CARE
== END 2018-12-20 17:15 | disposition home or self-care (01) | DRG 603 ==
LOC: EC 22:12 → 4SSUR 12-18 00:53 → 3NMEDONC 12-18 18:07 → OBSVTOIN 12-20 10:25
PROVIDERS: ADMIT Hospitalist; ATTEND Hospitalist
DX: L03.116 Cellulitis of left lower limb (principal); D61.818 Other pancytopenia; M10.9 Gout, unspecified; I11.0 Hypertensive heart disease with heart failure; I50.9 Heart failure, unspecified; E78.5 Hyperlipidemia, unspecified; J44.9 Chronic obstructive pulmonary disease, unspecified; K21.9 Gastro-esophageal reflux disease without esophagitis; I71.4 Abdominal aortic aneurysm, without rupture; E66.01 Morbid (severe) obesity due to excess calories; K74.60 Unspecified cirrhosis of liver; D69.6 Thrombocytopenia, unspecified; B18.2 Chronic viral hepatitis C; I73.9 Peripheral vascular disease, unspecified; Z86.718 Personal history of other venous thrombosis and embolism; Z68.35 Body mass index [BMI] 35.0-35.9, adult; Z79.899 Other long term (current) drug therapy; Z98.890 Other specified postprocedural states; Z87.891 Personal history of nicotine dependence; Z80.9 Family history of malignant neoplasm, unspecified; Z86.79 Personal history of other diseases of the circulatory system
CPT/HCPCS: 36415; 71046; 80048; 80053; 82550; 82553; 83735; 83880; 84484; 84550; 85025; 85379; 85610; 85730; 93005; 94640; 94760; 96372; 96374; 99285

== ENCOUNTER 2019-01-20 11:34 | Inpatient (IN) | payer OTHER, MEDICARE ==
--- NOTE | 2019-01-20 12:06 | ED ---
General Adult HPI - General Chief complaint: Recheck/Abnormal Lab/Rx Stated complaint: chest & pain all over Time Seen by Provider: 01/20/19 11:35 Source: patient, RN notes reviewed, old records reviewed Mode of arrival: wheelchair Limitations: no limitations - History of Present Illness Initial comments: This is a 68-year-old male who presents emergency Department with a past medical history significant for congestive heart failure, high blood pressure and hepatitis C. Patient comes in today stating he was told to come in because his d-dimer was elevated but he also has been experiencing intermittent chest pain which she states usually comes on at night. Patient states she's also been much more short of breath with any minimal exertion. Patient denies any palpitations. Patient denies any fever or chills. Patient denies any abdominal pain patient denies any nausea vomiting or diarrhea. Patient denies any numbness or weakness but states he does have a mild headache. Patient denies any swelling in the legs or calf tenderness. - Related Data Home Medications Medication Instructions Recorded Confirmed Carvedilol 25 mg PO BID 01/17/14 12/17/18 Atorvastatin Calcium [Lipitor] 10 mg PO HS 09/01/17 12/17/18 Furosemide [Lasix] 20 mg PO DAILY 09/01/17 12/17/18 Ipratropium-Albuterol Nebulize 3 ml INHALATION RT-Q8H 09/01/17 12/17/18 [Duoneb 0.5 mg-3 mg/3 ml Soln] Umeclidinium [place] [Incruse 1 puff INHALATION RT-DAILY PRN 09/01/17 12/17/18 Ellipta] Previous Rx's Medication Instructions Recorded Allopurinol [Zyloprim] 100 mg PO DAILY #30 tablet 12/20/18 Cephalexin [Keflex] 500 mg PO Q6HR 10 Days #20 cap 12/20/18 Naproxen [Naprosyn] 250 mg PO TID #15 tab 12/20/18 Spironolactone [Aldactone] 25 mg PO DAILY #30 tablet 12/20/18 Allergies Allergy/AdvReac Type Severity Reaction Status Date / Time No Known Allergies Allergy Verified 01/20/19 11:40 Review of Systems ROS Statement: Those systems with pertinent positive or pertinent negative responses have been documented in the HPI. ROS Other: All systems not noted in ROS Statement are negative. Past Medical History Past Medical History: Heart Failure, COPD, GERD/Reflux, Hypertension, Liver Disease, Respiratory Disorder Additional Past Medical History / Comment(s): congestive heart failure, and hepatitis C treated X 2 History of Any Multi-Drug Resistant Organisms: None Reported Past Surgical History: Heart Catheterization, Hernia Repair, Orthopedic Surgery Additional Past Surgical History / Comment(s): shoulder surgery Past Anesthesia/Blood Transfusion Reactions: No Reported Reaction, Motion Sickness Past Psychological History: No Psychological Hx Reported Smoking Status: Former smoker Past Alcohol Use History: None Reported Past Drug Use History: Marijuana - Past Family History Mother Family Medical History: Cancer General Exam - General Exam Comments Initial Comments: GENERAL: Patient is well-developed and well-nourished. Patient is nontoxic and well- hydrated and is in mild distress. ENT: Neck is soft and supple. No significant lymphadenopathy is noted. Oropharynx is clear. Moist mucous membranes. Neck has full range of motion without eliciting any pain. EYES: The sclera were anicteric and conjunctiva were pink and moist. Extraocular movements were intact and pupils were equal round and reactive to light. Eyelids were unremarkable. PULMONARY: Unlabored respirations. Good breath sounds bilaterally. No audible rales rhonchi or wheezing was noted. CARDIOVASCULAR: There is a regular rate and rhythm without any murmurs gallops or rubs. ABDOMEN: Soft and nontender with normal bowel sounds. SKIN: Skin is clear with no lesions or rashes and otherwise unremarkable. NEUROLOGIC: Patient is alert and oriented x3. Cranial nerves II through XII are grossly intact. Motor and sensory are also intact. Normal speech, volume and content. Symmetrical smile. MUSCULOSKELETAL: Normal extremities with adequate strength and full range of motion. No lower extremity swelling or edema. No calf tenderness. LYMPHATICS: No significant lymphadenopathy is noted PSYCHIATRIC: Normal psychiatric evaluation. 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 No ST segment elevation or chest x-ray shows no acute abnormality. Chest x-ray shows no acute abnormality. CT of the chest shows no PE. I spoke with Dr. Ratliff I wrote admitting orders and I continue the albuterol steroids on the floor. - Lab Data Result diagrams: 01/20/19 12:00 01/20/19 12:00 Lab Results 01/20/19 01/20/19 01/20/19 Range/Units 12:00 12:00 12:00 WBC 4.1 (3.8-10.6) k/uL RBC 3.77 L (4.30-5.90) m/uL Hgb 13.0 (13.0-17.5) gm/dL Hct 40.2 (39.0-53.0) % MCV 106.5 H (80.0-100.0) fL MCH 34.5 (25.0-35.0) pg MCHC 32.4 (31.0-37.0) g/dL RDW 13.3 (11.5-15.5) % Plt Count 62 L (150-450) k/uL Neutrophils % 65 % Lymphocytes % 23 % Monocytes % 7 % Eosinophils % 3 % Basophils % 1 % Neutrophils # 2.7 (1.3-7.7) k/uL Lymphocytes # 0.9 L (1.0-4.8) k/uL Monocytes # 0.3 (0-1.0) k/uL Eosinophils # 0.1 (0-0.7) k/uL Basophils # 0.0 (0-0.2) k/uL Manual Slide Review Performed Macrocytosis Moderate PT 10.9 (9.0-12.0) sec INR 1.0 (<1.2) APTT 24.9 (22.0-30.0) sec D-Dimer 14.13 H (<0.60) mg/L FEU Sodium 139 (137-145) mmol/L Potassium 4.0 (3.5-5.1) mmol/L Chloride 107 (98-107) mmol/L Carbon Dioxide 24 (22-30) mmol/L Anion Gap 8 mmol/L BUN 21 H (9-20) mg/dL Creatinine 1.15 (0.66-1.25) mg/dL Est GFR (CKD-EPI)AfAm 75 (>60 ml/min/1.73 sqM) Est GFR (CKD-EPI)NonAf 65 (>60 ml/min/1.73 sqM) Glucose 122 H (74-99) mg/dL Calcium 9.2 (8.4-10.2) mg/dL Total Bilirubin 1.1 (0.2-1.3) mg/dL AST 29 (17-59) U/L ALT 22 (21-72) U/L Alkaline Phosphatase 115 (38-126) U/L Troponin I (0.000-0.034) ng/mL NT-Pro-B Natriuret Pep pg/mL Total Protein 7.0 (6.3-8.2) g/dL Albumin 3.4 L (3.5-5.0) g/dL 01/20/19 01/20/19 Range/Units 12:00 12:00 WBC (3.8-10.6) k/uL RBC (4.30-5.90) m/uL Hgb (13.0-17.5) gm/dL Hct (39.0-53.0) % MCV (80.0-100.0) fL MCH (25.0-35.0) pg MCHC (31.0-37.0) g/dL RDW (11.5-15.5) % Plt Count (150-450) k/uL Neutrophils % % Lymphocytes % % Monocytes % % Eosinophils % % Basophils % % Neutrophils # (1.3-7.7) k/uL Lymphocytes # (1.0-4.8) k/uL Monocytes # (0-1.0) k/uL Eosinophils # (0-0.7) k/uL Basophils # (0-0.2) k/uL Manual Slide Review Macrocytosis PT (9.0-12.0) sec INR (<1.2) APTT (22.0-30.0) sec D-Dimer (<0.60) mg/L FEU Sodium (137-145) mmol/L Potassium (3.5-5.1) mmol/L Chloride (98-107) mmol/L Carbon Dioxide (22-30) mmol/L Anion Gap mmol/L BUN (9-20) mg/dL Creatinine (0.66-1.25) mg/dL Est GFR (CKD-EPI)AfAm (>60 ml/min/1.73 sqM) Est GFR (CKD-EPI)NonAf (>60 ml/min/1.73 sqM) Glucose (74-99) mg/dL Calcium (8.4-10.2) mg/dL Total Bilirubin (0.2-1.3) mg/dL AST (17-59) U/L ALT (21-72) U/L Alkaline Phosphatase (38-126) U/L Troponin I <0.012 (0.000-0.034) ng/mL NT-Pro-B Natriuret Pep 337 pg/mL Total Protein (6.3-8.2) g/dL Albumin (3.5-5.0) g/dL Disposition Clinical Impression: COPD with acute exacerbation Disposition: ADMITTED IP TO THIS HOSP Is patient prescribed a controlled substance at d/c from ED?: No Referrals: Aristides Mena DO [Primary Care Provider] - 1-2 days Time of Disposition: 16:18
[2019-01-20 12:10] LABS: Basophils % (A) 1 %; Eosinophils # (A) 0.1 k/uL (0-0.7); Eosinophils % (A) 3 %; HCT 40.2 % (39.0-53.0); Lymphocytes # (A) 0.9 k/uL (1.0-4.8); Lymphocytes % (A) 23 %; MCH 34.5 pg (25.0-35.0); MCHC 32.4 g/dL (31.0-37.0); MCV 106.5 fL (80.0-100.0); Macrocytosis Moderate; Mean Platelet Volume 8.2; Monocytes # (A) 0.3 k/uL (0-1.0); Monocytes % (A) 7 %; Neutrophils # (A) 2.7 k/uL (1.3-7.7); Neutrophils % (A) 65 %; RBC 3.77 m/uL (4.30-5.90); RDW 13.3 % (11.5-15.5); WBC 4.1 k/uL (3.8-10.6)
--- NOTE | 2019-01-20 12:12 | XR ---
EXAMINATION TYPE: XR chest 2V DATE OF EXAM: 01/20/2019 HISTORY: difficulty breathing. REFERENCE: Previous study dated 12/17/2018. FINDINGS: Lung volumes are mildly prominent. The lungs themselves are clear. Pleural spaces are clear . The heart is not enlarged. IMPRESSION: PLEASE CORRELATE FOR COPD.
[2019-01-20 12:22] LABS: Albumin 3.4 g/dL (3.5-5.0); Calcium 9.2 mg/dL (8.4-10.2); Total Bilirubin 1.1 mg/dL (0.2-1.3)
[2019-01-20 12:33] LABS: Platelet Count 62 k/uL (150-450)
[2019-01-20 12:37] LABS: Partial Thromboplastin Time 24.9 sec (22.0-30.0); Prothrombin Time 10.9 sec (9.0-12.0)
[2019-01-20 12:40] LABS: D-Dimer 14.13 mg/L FEU (<0.60)
--- NOTE | 2019-01-20 14:25 | CT ---
EXAMINATION TYPE: CT chest angio for PE DATE OF EXAM: 01/20/2019 COMPARISON: 04/07/2018 HISTORY: Elevated d-dimer, CHF, chest pains CT DLP: 870.2 mGycm Automated exposure control for dose reduction was used. CONTRAST: CT Chest for pulmonary embolism performed with with IV Contrast, patient injected with 100 mL of Isov ue 370. There are 3-D post processed images. FINDINGS: There is mild pulmonary emphysema. There is no pleural effusion. There is no evidence of a pulmonary mass. Heart size is normal. There is no pericardial effusion. There is no mediastinal adenopathy. There are no hilar masses. There is normal contrast opacification of the pulmonary arteries. There are no filling defects. There is minor atheromatous change in the t horacic aorta. There is no aneurysm or dissection. There is mild spurring in the thoracic spine. I se e no focal bone destruction. Spleen appears moderately enlarged. Spleen measures probably more than 1 7 cm. IMPRESSION: No evidence of pulmonary embolism. Mild emphysema. Splenomegaly. No adverse change in the chest are c ompared to old exam.
[2019-01-20] MEDS ORDERED: IPRATROPIUM-ALBUTEROL 3 ML NEB INHALATION PRN (17:30)
[2019-01-20] MEDS ORDERED: methylPREDNISolone SOD SUCCI 125 MG/2 ML VIAL IV SCH (18:00)
[2019-01-20 20:19] LABS: Glucose,Whole Blood 173 mg/dL (75-99)
[2019-01-20] MEDS: INSULIN ASPART (NovoLOG) 100 UNIT/ML VIAL SQ SCH (20:50)
--- NOTE | 2019-01-20 23:15 | P.HPIM ---
History of Present Illness H&P Date: 01/20/19 Chief Complaint: Short of breath History of present complaint: This is a 68-year-old patient of Dr. Melly Mena. 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 Patient is having multitudinous symptoms. He follows with Dr. Dia from pulmonary and Dr. BILL Dong from cardiology. States her last few days been having increasing shortness of breath. Some cough and clear sputum. Decreased appetite. No change in bowel or urine pattern. Has increasing edema. Has been occasionally and intermittently getting chest pain. Sharp patient. Localized. No radiation. Feels tired and rundown. No fever no chills. A computed by family. At the PCPs office d-dimer was elevated hence he was sent in. Review of systems: GEN.: Weak tired decreased appetite EYES: None HEENT: None NECK: None RESPIRATORY: As above CARDIOVASCULAR: As above with sounds edema GASTROINTESTINAL: None GENITOURINARY: None MUSCULOSKELETAL: Arthritic. The joints] LYMPHATICS: None HEMATOLOGICAL: None PSYCHIATRY: Slightly anxious NEUROLOGICAL: None Past medical history to include: Left lower extremity cellulitis, gout of the left ankle, compensated cirrhosis secondary to hepatitis C, pancytopenia from cirrhosis, COPD, GERD, essential hy pertension CHF EF not known, abdominal aortic aneurysm 6 cm Social history: Lives alone. Does use a cane. Smoked 2 packs a day for about 40 years and stopped about 12 years ago. Stopping excessive alcohol about 15 years ago Family history: Cancer Physical examination: VITAL SIGNS: 98.7, 57, 16, 106/70, 95% on nasal cannula GENERAL: BMI 35.6, sitting upon a chair, short of breath. EYES: Pupils equal. Conjunctiva normal. HEENT: External appearance of nose and ears normal, oral cavity grossly normal. NECK: JVD unable to assess; masses not palpable. HEART: First and second heart sounds are normal; no edema present. LUNGS: Respiratory rate increased, decreased breaths on some wheezing. ABDOMEN: Soft, nontender, liver spleen not palpable, no masses palpable. PSYCH: Alert and oriented x3; mood and affect normal. NEUROLOGICAL: Cranial nerves grossly intact; no facial asymmetry, power and sensation grossly intact. LYMPHATICS: No lymph nodes palpable in the axilla and neck MUSCULOSKELETAL-evidence of OA especially in the hands INVESTIGATIONS, reviewed in the clinical context: White count 4.1 hemoglobin 13 platelets 62 progression 4.0 creatinine 1.15 Troponin I less than 0.0122 EKG tracing-poor R-wave progression sinus rhythm Chest CTA-negative for PE splenomegaly Chest x-ray film personally reviewed by me-hyperinflation questionable right- sided infiltrate Assessment: -Right possibly viral pneumonitis -Acute COPD exacerbation and an ex-smoker -Obesity BMI 35.6 -Chronic gout -Compensated cirrhosis secondary to hepatitis C -Pancytopenia likely due to cirrhosis -GERD -Essential hypertension -Chronic congestive heart failure EF not known -Abdominal aortic aneurysm 6 cm be followed with Dr. Lee Plan: Patient be started on bronchodilators, IVsteroids. Home medications resumed. Care was discussed with the patient. Question rales. Oxygen supplementation as needed. DVT prophylaxis. Past Medical History Past Medical History: Heart Failure, COPD, GERD/Reflux, Hypertension, Liver Disease, Respiratory Disorder Additional Past Medical History / Comment(s): congestive heart failure, and hepatitis C treated X 2 History of Any Multi-Drug Resistant Organisms: None Reported Past Surgical History: Heart Catheterization, Hernia Repair, Orthopedic Surgery Additional Past Surgical History / Comment(s): shoulder surgery Past Anesthesia/Blood Transfusion Reactions: No Reported Reaction, Motion Si ckness Past Psychological History: No Psychological Hx Reported Smoking Status: Former smoker Past Alcohol Use History: None Reported Additional Past Alcohol Use History / Comment(s): pt stopped drinking 10 years ago Past Drug Use History: Marijuana - Past Family History Mother Family Medical History: Cancer Medications and Allergies Home Medications Medication Instructions Recorded Confirmed Type Carvedilol 25 mg PO BID 01/17/14 01/20/19 History Spironolactone [Aldactone] 25 mg PO DAILY #30 tablet 12/20/18 01/20/19 Rx Albuterol Inhaler [Ventolin Hfa 1 - 2 puff INHALATION RT-Q6H PRN 01/20/19 01/20/19 History Inhaler] Allopurinol [Zyloprim] 300 mg PO HS 01/20/19 01/20/19 History Torsemide [Demadex] 40 mg PO DAILY 01/20/19 01/20/19 History Allergies Allergy/AdvReac Type Severity Reaction Status Date / Time No Known Allergies Allergy Verified 01/20/19 17:31 Physical Exam Vitals: Vital Signs Temp Pulse Pulse Pulse Resp BP BP 01/20/19 21:17 64 01/20/19 21:08 60 01/20/19 20:21 01/20/19 19:53 98.7 F 57 L 16 116/70 01/20/19 18:10 97.7 F 57 L 12 123/85 01/20/19 17:51 76 16 141/81 01/20/19 12:52 64 16 120/77 01/20/19 11:52 68 01/20/19 11:35 97.9 F 66 16 123/76 Pulse Ox 01/20/19 21:17 01/20/19 21:08 01/20/19 20:21 94 L 01/20/19 19:53 95 01/20/19 18:10 97 01/20/19 17:51 99 01/20/19 12:52 96 01/20/19 11:52 01/20/19 11:35 92 L Intake and Output 01/20/19 01/20/19 01/21/19 14:59 22:59 06:59 Other: Weight 122.47 kg Results CBC & Chem 7: 01/20/19 12:00 01/20/19 12:00 Labs: Abnormal Lab Results - Last 24 Hours (Table) 01/20/19 01/20/19 01/20/19 Range/Units 12:00 12:00 12:00 RBC 3.77 L (4.30-5.90) m/uL MCV 106.5 H (80.0-100.0) fL Plt Count 62 L (150-450) k/uL Lymphocytes # 0.9 L (1.0-4.8) k/uL D-Dimer 14.13 H (<0.60) mg/L FEU BUN 21 H (9-20) mg/dL Glucose 122 H (74-99) mg/dL POC Glucose (mg/dL) (75-99) mg/dL Albumin 3.4 L (3.5-5.0) g/dL 01/20/19 Range/Units 20:18 RBC (4.30-5.90) m/uL MCV (80.0-100.0) fL Plt Count (150-450) k/uL Lymphocytes # (1.0-4.8) k/uL D-Dimer (<0.60) mg/L FEU BUN (9-20) mg/dL Glucose (74-99) mg/dL POC Glucose (mg/dL) 173 H (75-99) mg/dL Albumin (3.5-5.0) g/dL Thrombosis Risk Factor Assmnt - Choose All That Apply Each Factor Represents 1 point: Abnormal pulmonary function (COPD), Obesity (BMI >25), Swollen legs (current) Each Risk Factor Represents 2 Points: Age 61-74 years Thrombosis Risk Factor Assessment Total Risk Factor Score: 5 Thrombosis Risk Factor Assessment Level: High Risk
[2019-01-21] MEDS: IPRATROPIUM-ALBUTEROL 3 ML NEB INHALATION SCH ×8 (00:05→23:26)
[2019-01-21] MEDS: BUDESONIDE 1 MG/2 ML NEBU INHALATION SCH ×3 (00:05→19:34)
[2019-01-21] MEDS: guaiFENesin 600 MG TABLET.ER PO SCH ×3 (02:20→21:42)
[2019-01-21] MEDS: CARVEDILOL 12.5 MG TAB PO SCH ×3 (02:20→17:19)
[2019-01-21] MEDS: methylPREDNISolone SOD SUCCI 40 MG/ML 1 ML VIAL IV SCH ×3 (02:20→17:19)
[2019-01-21] MEDS: ALLOPURINOL 300 MG TAB PO SCH ×2 (02:20→21:42)
[2019-01-21 07:01] LABS: Glucose,Whole Blood 164 mg/dL (75-99)
[2019-01-21] MEDS: INSULIN ASPART (NovoLOG) 100 UNIT/ML VIAL SQ SCH ×4 (08:37→21:41)
[2019-01-21] MEDS: SPIRONOLACTONE 25 MG TAB PO SCH (08:39)
--- NOTE | 2019-01-21 09:29 | P.CRDCN ---
History of Present Illness Consult date: 01/21/19 Requesting physician: Juanjo Ratliff Chief complaint: Abnormal labs History of present illness: This is a 68-year-old gentleman who follows with Dr. Thorpe in the office. He has a known history of COPD, hypertension, chronic hepatitis C with associated cirrhosis, abdominal aortic aneurysm, GERD, history of prior EtOH abuse, he states that he had some outpatient lab work performed by his liver doctor, she was concerned about abnormality in his d-dimer and he was referred to come to the hospital for further evaluation and treatment. According to the patient, he has been feeling his usual self overall, he does state that he has an occasional cough, his breathing is stable, he denies any chest discomfort. He does state at times he notices a sharp discomfort in his chest that comes and goes at present he is pain-free. Chest x-ray on presentation here showed COPD. CTA of the chest negative for pulmonary embolism. It did show some mild emphysema and splenomegaly. EKG showed a normal sinus rhythm with incomplete right bundle branch block pattern and left anterior fascicular block. Blood pressure 122/70 with a heart rate in the 60s, 94% on room air. White blood cell count 4.1, hemoglobin 13, platelet count 62, d-dimer 14.13, sodium 139, potassium 4.0, BUN 21 and creatinine 1.1. Troponins have been negative 3, albumin 3.4, BNP 337, AST ALT normal. According to the patient, he had been s cheduled as an outpatient to undergo a stress test prior to repair of his aortic aneurysm, he developed significant gout and for this reason the stress test had been canceled. Past Medical History Past Medical History: Heart Failure, COPD, GERD/Reflux, Hypertension, Liver Disease, Respiratory Disorder Additional Past Medical History / Comment(s): congestive heart failure, and hepatitis C treated X 2 History of Any Multi-Drug Resistant Organisms: None Reported Past Surgical History: Heart Catheterization, Hernia Repair, Orthopedic Surgery Additional Past Surgical History / Comment(s): shoulder surgery Past Anesthesia/Blood Transfusion Reactions: No Reported Reaction, Motion Sickness Past Psychological History: No Psychological Hx Reported Smoking Status: Former smoker Past Alcohol Use History: None Reported Additional Past Alcohol Use History / Comment(s): pt stopped drinking 10 years ago Past Drug Use History: Marijuana - Past Family History Mother Family Medical History: Cancer Medications and Allergies Home Medications Medication Instructions Recorded Confirmed Type Carvedilol 25 mg PO BID 01/17/14 01/20/19 History Spironolactone [Aldactone] 25 mg PO DAILY #30 tablet 12/20/18 01/20/19 Rx Albuterol Inhaler [Ventolin Hfa 1 - 2 puff INHALATION RT-Q6H PRN 01/20/19 01/20/19 History Inhaler] Allopurinol [Zyloprim] 300 mg PO HS 01/20/19 01/20/19 History Torsemide [Demadex] 40 mg PO DAILY 01/20/19 01/20/19 History Allergies Allergy/AdvReac Type Severity Reaction Status Date / Time No Known Allergies Allergy Verified 01/20/19 17:31 Physical Exam Vitals: Vital Signs Temp Pulse Pulse Pulse Resp BP BP 01/21/19 08:45 69 01/21/19 08:30 66 01/21/19 07:00 98.5 F 94 68 12 122/73 01/21/19 04:08 64 01/21/19 03:58 67 01/21/19 02:41 98.2 F 71 16 106/54 01/21/19 00:15 64 01/21/19 00:05 60 01/20/19 23:46 57 L 57 L 16 01/20/19 21:17 64 01/20/19 21:08 60 01/20/19 20:21 01/20/19 19:53 98.7 F 57 L 16 116/70 01/20/19 18:10 97.7 F 57 L 12 123/85 01/20/19 17:51 76 16 141/81 01/20/19 12:52 64 16 120/77 01/20/19 11:52 68 01/20/19 11:35 97.9 F 66 16 123/76 Pulse Ox 01/21/19 08:45 01/21/19 08:30 01/21/19 07:00 94 L 01/21/19 04:08 01/21/19 03:58 01/21/19 02:41 94 L 01/21/19 00:15 01/21/19 00:05 01/20/19 23:46 01/20/19 21:17 01/20/19 21:08 01/20/19 20:21 94 L 01/20/19 19:53 95 01/20/19 18:10 97 01/20/19 17:51 99 01/20/19 12:52 96 01/20/19 11:52 01/20/19 11:35 92 L Intake and Output 01/20/19 01/21/19 01/21/19 22:59 06:59 14:59 Intake Total 590 Balance 590 Intake: Oral 590 Other: Voiding Method Toilet # Voids 1 2 GENERAL: This is a 68-year-old male in no apparent distress at the time of my examination. HEENT: Head is atraumatic, normocephalic. Pupils are equal, round. Sclerae anicteric. Conjunctivae are clear. Mucous membranes of the mouth are moist. Neck is supple. There is no jugular venous distention. No carotid bruit is heard. LUNGS: Clear to auscultation no wheezes, rales or rhonchi. No chest wall tenderness is noted on palpation or with deep breathing. HEART: Regular rate and rhythm without murmurs, rubs or gallops. S1 and S2 heard. ABDOMEN: Soft, nontender. Bowel sounds are heard. No organomegaly noted. EXTREMITIES: Swelling noted around the left ankle joint, nonpitting. Significant discomfort to the right lower extremity. VASCULAR: Radial and dorsalis pedis pulses palpated, strong pulse noted to the left dorsalis pedis and a weaker but present pulse noted on the right. No evidence of clubbing. NEUROLOGIC: Patient is awake, alert and oriented x3. Results 01/20/19 12:00 01/20/19 12:00 Cardiac Enzymes 01/20/19 01/20/19 01/20/19 Range/Units 12:00 12:00 18:30 AST 29 (17-59) U/L Troponin I <0.012 <0.012 (0.000-0.034) ng/mL 01/21/19 Range/Units 00:04 AST (17-59) U/L Troponin I <0.012 (0.000-0.034) ng/mL Coagulation 01/20/19 Range/Units 12:00 PT 10.9 (9.0-12.0) sec APTT 24.9 (22.0-30.0) sec CBC 01/20/19 Range/Units 12:00 WBC 4.1 (3.8-10.6) k/uL RBC 3.77 L (4.30-5.90) m/uL Hgb 13.0 (13.0-17.5) gm/dL Hct 40.2 (39.0-53.0) % Plt Count 62 L (150-450) k/uL Comprehensive Metabolic Panel 01/20/19 Range/Units 12:00 Sodium 139 (137-145) mmol/L Potassium 4.0 (3.5-5.1) mmol/L Chloride 107 (98-107) mmol/L Carbon Dioxide 24 (22-30) mmol/L BUN 21 H (9-20) mg/dL Creatinine 1.15 (0.66-1.25) mg/dL Glucose 122 H (74-99) mg/dL Calcium 9.2 (8.4-10.2) mg/dL AST 29 (17-59) U/L ALT 22 (21-72) U/L Alkaline Phosphatase 115 (38-126) U/L Total Protein 7.0 (6.3-8.2) g/dL Albumin 3.4 L (3.5-5.0) g/dL Current Medications Generic Name Dose Route Start Last Admin Trade Name Freq PRN Reason Stop Dose Admin Albuterol/Ipratropium 3 ml 01/20/19 17:30 01/20/19 21:08 Duoneb 0.5 Mg-3 Mg/3 Ml Soln INHALATION 3 ml RT-Q4H PRN Administration Shortness Of Breath Or Wheezing Albuterol/Ipratropium 3 ml 01/20/19 23:04 01/21/19 08:30 Duoneb 0.5 Mg-3 Mg/3 Ml Soln INHALATION 3 ml RT-Q4H CODI Administration Allopurinol 300 mg 01/20/19 23:15 01/21/19 02:20 Zyloprim PO 300 mg HS CODI Administration Budesonide 1 mg 01/20/19 23:04 01/21/19 08:30 Pulmicort INHALATION 1 mg RT-BID CODI Administration Carvedilol 12.5 mg 01/20/19 23:15 01/21/19 08:39 Coreg PO 12.5 mg BID-W/MEALS CODI Administration Guaifenesin 1,200 mg 01/20/19 23:15 01/21/19 08:39 Mucinex PO 1,200 mg Q12HR CODI Administration Insulin Aspart 0 unit 01/20/19 21:00 01/21/19 08:37 Novolog SQ Not Given ACHS [facility] Protocol Methylprednisolone Sodium Succinate 40 mg 01/21/19 00:00 01/21/19 08:38 Solu-Medrol IV 40 mg Q8HR CODI Administration Spironolactone 25 mg 01/21/19 09:00 01/21/19 08:39 Aldactone PO 25 mg DAILY CODI Administration Intake and Output 01/20/19 01/21/19 01/21/19 22:59 06:59 14:59 Intake Total 590 Balance 590 Intake: Oral 590 Other: Voiding Method Toilet # Voids 1 2 01/20/19 12:00 01/20/19 12:00 EKG Interpretations (text) EKG shows normal sinus rhythm, incomplete right bundle branch block pattern and left anterior fascicular block. Assessment and Plan Plan: Assessment and plan #1 elevated d-dimer, CT of the chest negative for pulmonary embolism #2 Hypertension #3 COPD #4 Abdominal aortic aneurysm #5 Chronic hepatitis C with associated cirrhosis #6 Thrombocytopenia #7 Neutropenia #8 prior history of smoking #9 prior history of EtOH abuse #10 recent flareup of gout Plan From cardiology's perspective, patient is stable. We would recommend he undergo a Lexiscan stress test. If the patient is discharged home he can have it as an outpatient next week, the patient remains in the hospital, we will schedule that for tomorrow morning. We will obtain an echocardiogram with Doppler study. Further recommendations to follow. DNP note has been reviewed, I agree with a documented findings and plan of care. Patient was seen and examined.
[2019-01-21 11:46] LABS: Glucose,Whole Blood 174 mg/dL (75-99)
[2019-01-21 13:38] VITALS: BMI 35.6
--- NOTE | 2019-01-21 16:09 | P.PN ---
Progress Note - Text Progress Note Date: 01/21/19 Chief Complaint: Short of breath History of present complaint: This is a 68-year-old patient of Dr. Melly Mena. 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 Patient is having multitudinous symptoms. He follows with Dr. Dia from pulmonary and Dr. BILL Dong from cardiology. States her last few days been having increasing shortness of breath. Some cough and clear sputum. Decreased appetite. No change in bowel or urine pattern. Has increasing edema. Has been occasionally and intermittently getting chest pain. Sharp patient. Localized. No radiation. Feels tired and rundown. No fever no chills. A computed by family. At the PCPs office d-dimer was elevated hence he was sent in. Admitted with-acute COPD exacerbation, viral pneumonitis and atypical chest pain. PE was ruled out. Today-breathing better. Less cough. Less wheezing. Did tolerate her diet. Review of systems: Was done for constitutional, cardiovascular, GI, pulmonary. relevant finding as above Active Medications Albuterol/Ipratropium (Duoneb 0.5 Mg-3 Mg/3 Ml Soln) 3 ml INHALATION RT-Q4H PRN PRN Reason: Shortness Of Breath Or Wheezing Last Admin: 01/20/19 21:08 Dose: 3 ml Documented by: Albuterol/Ipratropium (Duoneb 0.5 Mg-3 Mg/3 Ml Soln) 3 ml INHALATION RT-Q4H [facility] Last Admin: 01/21/19 15:41 Dose: Not Given Documented by: Allopurinol (Zyloprim) 300 mg PO HS [facility] Last Admin: 01/21/19 02:20 Dose: 300 mg Documented by: Budesonide (Pulmicort) 1 mg INHALATION RT-BID [facility] Last Admin: 01/21/19 08:30 Dose: 1 mg Documented by: Carvedilol (Coreg) 12.5 mg PO BID-W/MEALS [facility] Last Admin: 01/21/19 08:39 Dose: 12.5 mg Documented by: Guaifenesin (Mucinex) 1,200 mg PO Q12HR [facility] Last Admin: 01/21/19 08:39 Dose: 1,200 mg Documented by: Insulin Aspart (Novolog) 0 unit SQ ACHS [facility]; Protocol Last Admin: 01/21/19 12:17 Dose: 4 unit Documented by: Methylprednisolone Sodium Succinate (Solu-Medrol) 40 mg IV Q8HR [facility] Last Admin: 01/21/19 08:38 Dose: 40 mg Documented by: Spironolactone (Aldactone) 25 mg PO DAILY [facility] Last Admin: 01/21/19 08:39 Dose: 25 mg Documented by: Physical examination: VITAL SIGNS: 98.1, 62, 12, 03/30/1974, 93% room air GENERAL: Sitting up, feeling better. EYES: Pupils equal. Conjunctiva normal. HEENT: External appearance of nose and ears normal, oral cavity grossly normal. NECK: JVD unable to assess; masses not palpable. HEART: First and second heart sounds are normal; no edema present. LUNGS: Respiratory rate increased, decreased breaths, decreased wheezing ABDOMEN: Soft, nontender, liver spleen not palpable, no masses palpable. PSYCH: Alert and oriented x3; mood and affect normal. MUSCULOSKELETAL-evidence of OA especially in the hands INVESTIGATIONS, reviewed in the clinical context: Accu-Cheks noted Previous testing White count 4.1 hemoglobin 13 platelets 62 progression 4.0 creatinine 1.15 Troponin I less than 0.0122 EKG tracing-poor R-wave progression sinus rhythm Chest CTA-negative for PE splenomegaly Chest x-ray film personally reviewed by me-hyperinflation questionable right- sided infiltrate Assessment: -Right possibly viral pneumonitis -Anterior chest wall pain. Stress test per cardiology tomorrow -Acute COPD exacerbation and an ex-smoker, improving -Obesity BMI 35.6 -Chronic gout -Compensated cirrhosis secondary to hepatitis C -Pancytopenia likely due to cirrhosis -GERD -Essential hypertension -Chronic congestive heart failure EF not known -Abdominal aortic aneurysm 6 cm be followed with Dr. Lee Plan: Patient is scheduled for stress test tomorrow. Continue with IV steroids bronchodilators. Care discussed with the patient.
[2019-01-21 16:55] LABS: Glucose,Whole Blood 162 mg/dL (75-99)
[2019-01-21 22:11] LABS: Glucose,Whole Blood 174 mg/dL (75-99)
[2019-01-22] MEDS: methylPREDNISolone SOD SUCCI 40 MG/ML 1 ML VIAL IV SCH ×2 (01:38→07:26)
[2019-01-22] MEDS: IPRATROPIUM-ALBUTEROL 3 ML NEB INHALATION SCH ×4 (03:30→14:59)
[2019-01-22 07:15] LABS: Glucose,Whole Blood 158 mg/dL (75-99)
[2019-01-22 07:25] VITALS: BP 121/79; RESP 18; TEMP 97.9
[2019-01-22] MEDS: guaiFENesin 600 MG TABLET.ER PO SCH (07:25)
[2019-01-22] MEDS: INSULIN ASPART (NovoLOG) 100 UNIT/ML VIAL SQ SCH ×2 (07:26→11:53)
[2019-01-22] MEDS: CARVEDILOL 12.5 MG TAB PO SCH (07:26)
[2019-01-22] MEDS: SPIRONOLACTONE 25 MG TAB PO SCH (07:26)
[2019-01-22] MEDS: BUDESONIDE 1 MG/2 ML NEBU INHALATION SCH (08:20)
[2019-01-22] MEDS ORDERED: TORSEMIDE 20 MG TAB PO SCH (10:00)
--- NOTE | 2019-01-22 11:01 | ECHOF ---
Referral Reason:sob MEASUREMENTS -------- HEIGHT: 180.3 cm WEIGHT: 122.5 kg BP: 120/69 RVIDd: 4.3 cm (< 3.3) IVSd: 1.0 cm (0.6 - 1.1) LVIDd: 4.4 cm (3.9 - 5.3) LVPWd: 1.3 cm (0.6 - 1.1) IVSs: 1.8 cm LVIDs: 2.1 cm LVPWs: 1.8 cm Ao Diam: 3.6 cm (2.0 - 3.7) AV Cusp: 2.3 cm (1.5 - 2.6) LA Diam: 3.0 cm (2.7 - 3.8) MV EXCURSION: 21.085 mm (> 18.000) MV EF SLOPE: 188 mm/s (70 - 150) EPSS: 0.8 cm MV E Eb: 0.95 m/s MV DecT: 166 ms MV A Eb: 0.57 m/s MV E/A Ratio: 1.67 AR PHT: 409 ms RAP: 5.00 mmHg RVSP: 36.41 mmHg FINDINGS -------- Sinus rhythm with extra systolic beats. This was a technically adequate study. The left ventricular size is normal. There is mild concentric left ventricular hypertrophy. Overa ll left ventricular systolic function is normal with, an EF between 55 - 60 %. The right ventricle is severely enlarged. The left atrial size is normal. Normal LA size by volume 22+/-6 ml/m2. The right atrial size is normal. The aortic valve is trileaflet and appears structurally normal. The mitral valve is normal. Mild mitral regurgitation is present. The tricuspid valve appears structurally normal. Mild tricuspid regurgitation present. There is m ild pulmonary hypertension. The right ventricular systolic pressure, as measured by Doppler, is 36. 41mmHg. There is no pulmonic regurgitation present. The aortic root size is normal. Normal inferior vena cava with normal inspiratory collapse consistent with estimated right atrial pre ssure of 5 mmHg. There is no pericardial effusion. CONCLUSIONS -------- 1. Sinus rhythm with extra systolic beats. 2. This was a technically adequate study. 3. The left ventricular size is normal. 4. There is mild concentric left ventricular hypertrophy. 5. Overall left ventricular systolic function is normal with, an EF between 55 - 60 %. 6. The right ventricle is severely enlarged. 7. The left atrial size is normal. 8. Normal LA size by volume 22+/-6 ml/m2. 9. The right atrial size is normal. 10. The aortic valve is trileaflet and appears structurally normal. 11. The mitral valve is normal. 12. Mild mitral regurgitation is present. 13. The tricuspid valve appears structurally normal. 14. Mild tricuspid regurgitation present. 15. There is mild pulmonary hypertension. 16. The right ventricular systolic pressure, as measured by Doppler, is 36.41mmHg. 17. There is no pulmonic regurgitation present. 18. The aortic root size is normal. 19. Normal inferior vena cava with normal inspiratory collapse consistent with estimated right atrial pressure of 5 mmHg. 20. There is no pericardial effusion. [employer] CLERK: Janice Lopez RDCS
[2019-01-22 11:23] VITALS: PULSE 93
[2019-01-22 11:50] LABS: Glucose,Whole Blood 133 mg/dL (75-99)
--- NOTE | 2019-01-22 11:54 | P.PN ---
Subjective This is a pleasant 68-year-old male past medical history significant for COPD, hypertension, hepatitis C, liver cirrhosis, abdominal aortic aneurysm, gastroesophageal reflux disease and history of alcohol abuse. He follows in the office with Dr. Thorpe. We are following secondary to chest pain. He states overall he is feeling better since admission. Breathing has improved and pleuritic chest pain has subsided. He is concerned why he is not getting all of his diuretics. Blood pressure 121/79 heart rate 88 afebrile and maintaining o xygen saturation on room air. Currently maintained on carvedilol 12.5 mg BID and aldactone 25 mg daily. GENERAL: Well-appearing, well-nourished and in no acute distress. NECK: Supple without JVD or thyromegaly. LUNGS: Breath sounds clear to auscultation bilaterally. Respiration equal and unlabored. No wheezes, rales or rhonchi. HEART: Regular rate and rhythm without murmurs, rubs or gallops. S1 and S2 heard. EXTREMITIES: Normal range of motion, no edema. No clubbing or cyanosis. Peripheral pulses intact. ASSESSMENT Chest pain, pleuritic. An acute event has been ruled out. Acute exacerbation of COPD Abdominal aortic aneurysm, awaiting cardiac clearance for surgery. Hypertension Chronic hepatitis C Thrombocytopenia Chronically elevated d-dimer, unknown etiology. CTA negative for PE. PLAN Possible persantine stress test today, however the patient ate a full breakfast thus the test cannot be done this morning. Stress test has been scheduled in the office for Tuesday at 0715. Pre-test instructions given this morning. Stable for discharge from a cardiac perspective. Nurse Practitioner note has been reviewed, I agree with a documented findings and plan of care. Patient was seen and examined. Objective - Vital Signs Vital signs: Vital Signs Temp 97.9 F 01/22/19 07:25 Pulse 88 01/22/19 08:32 Resp 18 01/22/19 07:25 BP 121/79 01/22/19 07:25 Pulse Ox 99 01/22/19 07:25 Intake & Output 01/21/19 01/22/19 01/22/19 18:59 06:59 18:59 Weight 122.47 kg Other: Voiding Method Toilet Toilet # Voids 3 1 - Labs CBC & Chem 7: 01/20/19 12:00 01/20/19 12:00 Labs: Abnormal Lab Results - Last 24 Hours (Table) 01/21/19 01/21/19 01/21/19 Range/Units 11:45 16:47 21:41 POC Glucose (mg/dL) 174 H 162 H 174 H (75-99) mg/dL 01/22/19 Range/Units 07:13 POC Glucose (mg/dL) 158 H (75-99) mg/dL
--- NOTE | 2019-01-22 12:54 | P.DS ---
Providers Date of admission: 01/22/19 08:41 Expected date of discharge: 01/22/19 Attending physician: Juanjo Ratliff Consults: 01/20/19 17:30 Consult Physician Routine Consulting Provider: [facility] Consult Reason/Comments: Chest pain Do you want consulting provider notified?: Yes Primary care physician: Aristides [facility] Course: Chief Complaint: Short of breath Hospital course: This is a 68-year-old patient of Dr. Melly Mena. 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 Patient is having multitudinous symptoms. He follows with Dr. Dia from pulmonary and Dr. BILL Dong from cardiology. States her last few days been having increasing shortness of breath. Some cough and clear sputum. Decreased appetite. No change in bowel or urine pattern. Has increasing edema. Has been occasionally and intermittently getting chest pain. Sharp patient. Localized. No radiation. Feels tired and rundown. No fever no chills. A computed by family. At the PCPs office d-dimer was elevated hence he was sent in. Admitted with-acute COPD exacerbation, viral pneumonitis and atypical chest pain. PE was ruled out. Treated with bronchodilators, IV steroids. Responded well. Today-doing much better. Up and about. Only diet. Respiratory symptoms much improved. Seen by cardiology. Outpatient stress test this coming Tuesday. No further chest pain. Consultation: Dr. Cornejo From cardiology Physical examination: VITAL SIGNS: 97.9, 85, 18, 121-79, N percent room air GENERAL: Sitting up, feeling better. EYES: Pupils equal. Conjunctiva normal. HEENT: External appearance of nose and ears normal, oral cavity grossly normal. NECK: JVD unable to assess; masses not palpable. HEART: First and second heart sounds are normal; no edema present. LUNGS: Respiratory rate normal, improved air entry ABDOMEN: Soft, nontender, liver spleen not palpable, no masses palpable. PSYCH: Alert and oriented x3; mood and affect normal. MUSCULOSKELETAL-evidence of OA especially in the hands INVESTIGATIONS, reviewed in the clinical context: Accu-Cheks noted Previous testing White count 4.1 hemoglobin 13 platelets 62 progression 4.0 creatinine 1.15 Troponin I less than 0.0122 EKG tracing-poor R-wave progression sinus rhythm Chest CTA-negative for PE splenomegaly Chest x-ray film personally reviewed by me-hyperinflation questionable right- sided infiltrate 2-D echo-EF 50-60%. Assessment: -Acute COPD exacerbation and an ex-smoker, improved, POA -Right possibly viral pneumonitis, POA -Anterior chest wall pain. Stress test per cardiology-outpatient -Obesity BMI 35.6 -Chronic gout -Compensated cirrhosis secondary to hepatitis C -Pancytopenia likely due to cirrhosis -GERD -Essential hypertension -Chronic congestive heart failure from diastolic dysfunction EF 55-60% -Abdominal aortic aneurysm 6 cm be followed with Dr. Lee Disposition: Home Patient Condition at Discharge: Stable Plan - Discharge Summary Discharge Rx Participant: Yes New Discharge Prescriptions: No Action Carvedilol 25 mg PO BID Spironolactone [Aldactone] 25 mg PO DAILY #30 tablet Torsemide [Demadex] 40 mg PO DAILY Allopurinol [Zyloprim] 300 mg PO HS Albuterol Inhaler [Ventolin Hfa Inhaler] 1 - 2 puff INHALATION RT-Q6H PRN PRN Reason: Shortness Of Breath Discharge Medication List Carvedilol 25 mg PO BID 01/17/14 [History] Spironolactone [Aldactone] 25 mg PO DAILY #30 tablet 12/20/18 [Rx] Albuterol Inhaler [Ventolin Hfa Inhaler] 1 - 2 puff INHALATION RT-Q6H PRN 01/20/19 [History] Allopurinol [Zyloprim] 300 mg PO HS 01/20/19 [History] Torsemide [Demadex] 40 mg PO DAILY 01/20/19 [History] Follow up Appointment(s)/Referral(s): Destini Dong MD [STAFF PHYSICIAN] - 01/24/19 7:15 am (Stress test Jan 24 at 0715. Nothing to eat or drink after midnight on Tuesday. No coffee. Take all of your medications Tuesday night and Tuesday morning as ordered. ) Aristides Mena DO [Primary Care Provider] - 1-2 days
== END 2019-01-22 15:32 | disposition home or self-care (01) | DRG 190 ==
LOC: EC 11:34 → 4SSUR 17:36 → OBSVTOIN 01-22 08:41
PROVIDERS: ADMIT Hospitalist; ATTEND Hospitalist
DX: J44.0 Chronic obstructive pulmonary disease with (acute) lower respiratory infection (principal); J12.9 Viral pneumonia, unspecified; I45.2 Bifascicular block; D61.818 Other pancytopenia; I50.32 Chronic diastolic (congestive) heart failure; J44.1 Chronic obstructive pulmonary disease with (acute) exacerbation; I11.0 Hypertensive heart disease with heart failure; R16.1 Splenomegaly, not elsewhere classified; K74.60 Unspecified cirrhosis of liver; R07.89 Other chest pain; B18.2 Chronic viral hepatitis C; M1A.9XX0 Chronic gout, unspecified, without tophus (tophi); I71.4 Abdominal aortic aneurysm, without rupture; K21.9 Gastro-esophageal reflux disease without esophagitis; R51 Headache; F10.11 Alcohol abuse, in remission; E66.9 Obesity, unspecified; Z68.35 Body mass index [BMI] 35.0-35.9, adult; Z79.899 Other long term (current) drug therapy; Z98.890 Other specified postprocedural states; Z87.891 Personal history of nicotine dependence; Z80.9 Family history of malignant neoplasm, unspecified
CPT/HCPCS: 36415; 71046; 71275; 80053; 83880; 84484; 85025; 85379; 85610; 85730; 93005; 93306; 94640; 94760; 99285

== ENCOUNTER → 2019-04-20 | Outpatient (CLI) | payer MEDICARE ==
[2019-04-20 10:55] LABS: Basophils % (A) 0 %; Eosinophils # (A) 0.2 k/uL (0-0.7); Eosinophils % (A) 5 %; HCT 40.1 % (39.0-53.0); HGB 13.1 gm/dL (13.0-17.5); Lymphocytes % (A) 29 %; MCH 35.9 pg (25.0-35.0); MCHC 32.6 g/dL (31.0-37.0); Macrocytosis Marked; Mean Platelet Volume 10.6; Monocytes # (A) 0.2 k/uL (0-1.0); Monocytes % (A) 7 %; Neutrophils % (A) 57 %; RBC 3.64 m/uL (4.30-5.90); RDW 13.9 % (11.5-15.5); WBC 3.5 k/uL (3.8-10.6)
[2019-04-20 11:40] LABS: Large Platelets Present; Platelet Count 42 k/uL (150-450); Poikilocytosis (M) Present
== END | disposition home or self-care (01) ==
LOC: LABPAT 09:59
PROVIDERS: ATTEND Surgery
DX: Z01.812 Encounter for preprocedural laboratory examination (principal); I71.4 Abdominal aortic aneurysm, without rupture
CPT/HCPCS: 36415; 80051; 82565; 84520; 85025; 86850; 86900; 86901

== ENCOUNTER 2019-08-31 13:16 | Observation (INO) | payer OTHER, MEDICARE ==
--- NOTE | 2019-08-31 13:53 | ED ---
General Adult HPI - General Chief complaint: Chest Pain Stated complaint: Chest Pain Time Seen by Provider: 08/31/19 13:27 Source: patient, RN notes reviewed, old records reviewed Mode of arrival: ambulatory Limitations: no limitations - History of Present Illness Initial comments: 69-year-old male presenting for evaluation of left upper chest pain. Pain began approximately 9 AM this morning. Onset was at rest. He states the pain did radiate to his left arm with some numbness and tingling. He took 2 nitroglycerin with improvement in his symptoms. He did also state that the pain seems to be worse with movement of the left arm. Patient has history of COPD as well as abdominal aortic aneurysm which is scheduled for surgical repair on September 10. - Related Data Home Medications Medication Instructions Recorded Confirmed Albuterol Inhaler (Mhu) [Ventolin 1 - 2 puff INHALATION RT-Q6H PRN 01/20/19 05/11/19 Hfa Inhaler (Mhu)] Allopurinol [Zyloprim] 300 mg PO HS 01/20/19 05/11/19 Torsemide [Demadex] 40 mg PO DAILY 01/20/19 05/11/19 Budesonide-Formot 160-4.5 Mcg 2 puff INHALATION BID 05/11/19 05/11/19 [Symbicort 160-4.5 Mcg Inhaler] Carvedilol [Coreg*] 25 mg PO BID-W/MEALS 05/11/19 05/11/19 Cholecalciferol [Vitamin D3 (25 1,000 unit PO DAILY 05/11/19 05/11/19 Mcg = 1000 Iu)] Ipratropium-Albuterol Nebulize 3 ml INHALATION QID PRN 05/11/19 05/11/19 [Duoneb 0.5 mg-3 mg/3 ml Soln] Previous Rx's Medication Instructions Recorded Spironolactone [Aldactone] 25 mg PO DAILY #30 tablet 12/20/18 Aspirin 81 mg PO DAILY #30 chewable 01/22/19 Allergies Allergy/AdvReac Type Severity Reaction Status Date / Time No Known Allergies Allergy Verified 08/31/19 13:24 Review of Systems ROS Statement: Those systems with pertinent positive or pertinent negative responses have been documented in the HPI. ROS Other: All systems not noted in ROS Statement are negative. Past Medical History Past Medical History: Heart Failure, COPD, GERD/Reflux, Hypertension, Liver Disease Additional Past Medical History / Comment(s): hepatitis C treated X 2 History of Any Multi-Drug Resistant Organisms: None Reported Past Surgical History: Heart Catheterization, Hernia Repair, Orthopedic Surgery Additional Past Surgical History / Comment(s): shoulder surgery Past Anesthesia/Blood Transfusion Reactions: No Reported Reaction, Motion Sickness Past Psychological History: No Psychological Hx Reported Smoking Status: Former smoker - Past Family History Mother Family Medical History: Cancer General Exam Limitations: no limitations General appearance: alert, in no apparent distress Head exam: Present: atraumatic, normocephalic Eye exam: Present: normal appearance, PERRL ENT exam: Present: normal exam Neck exam: Present: normal inspection. Absent: tenderness, meningismus Respiratory exam: Present: decreased breath sounds. Absent: respiratory distress, wheezes Cardiovascular Exam: Present: regular rate, normal rhythm GI/Abdominal exam: Present: soft. Absent: distended, tenderness, guarding Extremities exam: Present: normal inspection, normal capillary refill. Absent: pedal edema, calf tenderness Neurological exam: Present: alert, oriented X3, CN II-XII intact. Absent: motor sensory deficit Psychiatric exam: Present: normal affect, normal mood Skin exam: Present: warm, dry, intact. Absent: cyanosis, diaphoretic Course Vital Signs 08/30/ 13:22 Temperature 98 F Pulse Rate 78 Respiratory 16 Rate Blood Pressure 101/62 O2 Sat by Pulse 94 L Oximetry EKG Findings - EKG Comments: EKG Findings:: EKG: Normal sinus rhythm with arrhythmia, rate of 62, NJ interval 176, QRS duration 100, QTC 426, no ST segment elevation given Medical Decision Making - Medical Decision Making 69-year-old male presenting for an episode of left-sided chest pain pain had nearly completely resolved at the time of arrival. Its onset was approximately 45 hours prior to arrival. Patient has history of COPD, CHF, abdominal aortic aneurysm. Denies anticoagulants. Patient reports a mild cough and dyspnea which is baseline for this patient with history of COPD. No fever. No abdominal pain. No vomiting or diarrhea. Patient states his symptoms have improved since the onset. EKG showing sinus rhythm with no ST segment elevation. Chest x-ray is negative for acute cardiopulmonary findings. He has a normal CBC, CMP showing normal electrolytes, normal kidney function. Patient has negative initial troponin. Given his risk factors he will be kept in observation for stroke or headache enzymes, telemetry, cardiology consultation. - Lab Data Result diagrams: 08/31/19 13:45 08/31/19 13:45 Lab Results 08/31/19 08/31/19 08/31/19 Range/Units 13:45 13:45 13:45 WBC 3.8 (3.8-10.6) k/uL RBC 3.64 L (4.30-5.90) m/uL Hgb 13.4 (13.0-17.5) gm/dL Hct 39.3 (39.0-53.0) % MCV 107.8 H (80.0-100.0) fL MCH 36.8 H (25.0-35.0) pg MCHC 34.1 (31.0-37.0) g/dL RDW 12.7 (11.5-15.5) % Plt Count 44 L (150-450) k/uL Neutrophils % 59 % Lymphocytes % 24 % Monocytes % 8 % Eosinophils % 7 % Basophils % 1 % Neutrophils # 2.3 (1.3-7.7) k/uL Lymphocytes # 0.9 L (1.0-4.8) k/uL Monocytes # 0.3 (0-1.0) k/uL Eosinophils # 0.3 (0-0.7) k/uL Basophils # 0.0 (0-0.2) k/uL Macrocytosis Moderate PT 11.3 (9.0-12.0) sec INR 1.1 (<1.2) APTT 26.6 (22.0-30.0) sec Sodium 139 (137-145) mmol/L Potassium 4.2 (3.5-5.1) mmol/L Chloride 105 (98-107) mmol/L Carbon Dioxide 26 (22-30) mmol/L Anion Gap 8 mmol/L BUN 30 H (9-20) mg/dL Creatinine 1.46 H (0.66-1.25) mg/dL Est GFR (CKD-EPI)AfAm 56 (>60 ml/min/1.73 sqM) Est GFR (CKD-EPI)NonAf 48 (>60 ml/min/1.73 sqM) Glucose 131 H (74-99) mg/dL Calcium 9.0 (8.4-10.2) mg/dL Magnesium 1.9 (1.6-2.3) mg/dL Total Bilirubin 1.5 H (0.2-1.3) mg/dL AST 30 (17-59) U/L ALT 19 (4-49) U/L Alkaline Phosphatase 103 (38-126) U/L Troponin I (0.000-0.034) ng/mL Total Protein 6.7 (6.3-8.2) g/dL Albumin 3.4 L (3.5-5.0) g/dL 08/31/19 Range/Units 13:45 WBC (3.8-10.6) k/uL RBC (4.30-5.90) m/uL Hgb (13.0-17.5) gm/dL Hct (39.0-53.0) % MCV (80.0-100.0) fL MCH (25.0-35.0) pg MCHC (31.0-37.0) g/dL RDW (11.5-15.5) % Plt Count (150-450) k/uL Neutrophils % % Lymphocytes % % Monocytes % % Eosinophils % % Basophils % % Neutrophils # (1.3-7.7) k/uL Lymphocytes # (1.0-4.8) k/uL Monocytes # (0-1.0) k/uL Eosinophils # (0-0.7) k/uL Basophils # (0-0.2) k/uL Macrocytosis PT (9.0-12.0) sec INR (<1.2) APTT (22.0-30.0) sec Sodium (137-145) mmol/L Potassium (3.5-5.1) mmol/L Chloride (98-107) mmol/L Carbon Dioxide (22-30) mmol/L Anion Gap mmol/L BUN (9-20) mg/dL Creatinine (0.66-1.25) mg/dL Est GFR (CKD-EPI)AfAm (>60 ml/min/1.73 sqM) Est GFR (CKD-EPI)NonAf (>60 ml/min/1.73 sqM) Glucose (74-99) mg/dL Calcium (8.4-10.2) mg/dL Magnesium (1.6-2.3) mg/dL Total Bilirubin (0.2-1.3) mg/dL AST (17-59) U/L ALT (4-49) U/L Alkaline Phosphatase (38-126) U/L Troponin I <0.012 (0.000-0.034) ng/mL Total Protein (6.3-8.2) g/dL Albumin (3.5-5.0) g/dL Disposition Clinical Impression: Chest pain Disposition: HOME SELF-CARE Condition: Stable Is patient prescribed a controlled substance at d/c from ED?: No Referrals: Aristides Mena DO [Primary Care Provider] - 1-2 days Decision to Admit Reason: Admit from EC Decision Date: 08/31/19 Decision Time: 14:48
[2019-08-31 13:58] LABS: Basophils % (A) 1 %; Eosinophils # (A) 0.3 k/uL (0-0.7); Eosinophils % (A) 7 %; HCT 39.3 % (39.0-53.0); HGB 13.4 gm/dL (13.0-17.5); Lymphocytes # (A) 0.9 k/uL (1.0-4.8); Lymphocytes % (A) 24 %; MCH 36.8 pg (25.0-35.0); MCHC 34.1 g/dL (31.0-37.0); MCV 107.8 fL (80.0-100.0); Macrocytosis Moderate; Mean Platelet Volume 10.2; Monocytes # (A) 0.3 k/uL (0-1.0); Monocytes % (A) 8 %; Neutrophils # (A) 2.3 k/uL (1.3-7.7); Neutrophils % (A) 59 %; RBC 3.64 m/uL (4.30-5.90); RDW 12.7 % (11.5-15.5); WBC 3.8 k/uL (3.8-10.6)
[2019-08-31 14:05] LABS: Platelet Count 44 k/uL (150-450)
[2019-08-31 14:07] LABS: Albumin 3.4 g/dL (3.5-5.0); Magnesium 1.9 mg/dL (1.6-2.3); Potassium 4.2 mmol/L (3.5-5.1); Total Bilirubin 1.5 mg/dL (0.2-1.3); Total Protein 6.7 g/dL (6.3-8.2)
[2019-08-31 14:13] LABS: INR 1.1 (<1.2); Partial Thromboplastin Time 26.6 sec (22.0-30.0); Prothrombin Time 11.3 sec (9.0-12.0)
--- NOTE | 2019-08-31 14:16 | XR ---
EXAMINATION TYPE: XR chest 2V DATE OF EXAM: 08/31/2019 COMPARISON: 01/20/2019 HISTORY: Left-sided chest pain TECHNIQUE: Frontal and lateral views of the chest are obtained. FINDINGS: There is no focal air space opacity, pleural effusion, or pneumothorax seen. The cardiac silhouette size is within normal limits. The osseous structures are intact. IMPRESSION: No acute cardiopulmonary process.
[2019-08-31] MEDS ORDERED: NALOXONE 0.4 MG/ML 1 ML VIAL IV PRN (14:45)
[2019-08-31] MEDS ORDERED: MORPHINE SULFATE 4 MG/ML SYRINGE IVP PRN (15:12)
[2019-08-31] MEDS ORDERED: NITROGLYCERIN SL TABS 0.4 MG TAB SUBLINGUAL PRN ×2 (15:12→18:34)
[2019-08-31] MEDS ORDERED: ALBUTEROL NEBULIZED 2.5 MG/3 ML INHALATION PRN (15:37)
[2019-08-31] MEDS ORDERED: CARVEDILOL 12.5 MG TAB PO SCH (17:30)
[2019-08-31] MEDS ORDERED: TEMAZEPAM 15 MG CAP PO PRN (19:18)
[2019-08-31] MEDS ORDERED: HYDROcodone/APAP 5-325MG 1 EACH TAB PO PRN (19:18)
[2019-08-31] MEDS ORDERED: ALPRAZolam 0.25 MG TAB PO PRN (19:18)
[2019-08-31] MEDS: IPRATROPIUM-ALBUTEROL 3 ML NEB INHALATION PRN (19:23)
[2019-08-31] MEDS: SYMBICORT 160-4.5 MCG INHALER INHALATION SCH (19:29)
--- NOTE | 2019-08-31 19:55 | HP ---
HISTORY AND PHYSICAL DATE OF SERVICE: 08/31/2019 CHIEF COMPLAINT: Chest pain. HISTORY OF PRESENT ILLNESS: This 69-year-old gentleman with a past medical history of multiple medical problems, including COPD, history of CHF, GERD, hypertension, history of liver disease, hepatitis C, cirrhosis of the liver, being followed by Dr. Aristides Mena in the outpatient setting, was complaining of chest pain which was sudden in onset, severe, almost like a gunshot, according to him, on the left side of the chest. There was some radiation to the left arm with numbness and tingling, and the patient came to [facility] and was admitted for further evaluation and treatment. Apparently Vascular Surgery is also planning some surgery; details are not available. PAST MEDICAL HISTORY: History of CHF, COPD, GERD, hypertension, history of liver disease, cirrhosis of the liver, history of cardiac catheterization. HOME MEDICATIONS: 1. DuoNeb q.i.d. and p.r.n. 2. Symbicort. 3. Albuterol. 4. Torsemide. 5. Nitrostat. 6. Zestril. 7. Vitamin D3. 8. Coreg. 9. Aspirin. 10.Aldactone. Doses are reviewed. ALLERGIES: NONE. FAMILY HISTORY: History of cancer in the family. SOCIAL HISTORY: Previous history of smoking. No current smoking or alcohol intake. REVIEW OF SYSTEMS: ENT: No diminished hearing. No diminished vision. CARDIOVASCULAR SYSTEM: As mentioned earlier. RESPIRATORY SYSTEM: As mentioned earlier. GI: No nausea, vomiting. : No dysuria or retention. NERVOUS SYSTEM: No numbness, weakness. ALLERGY/IMMUNOLOGY: No asthma, hayfever. MUSCULOSKELETAL: As mentioned earlier. HEMATOLOGY/ONCOLOGY: No history of anemia. ENDOCRINE: No history of diabetes, hypothyroidism. CONSTITUTIONAL: As mentioned earlier. DERMATOLOGY: Negative. RHEUMATOLOGY: Negative. PSYCHIATRY: As mentioned earlier. PHYSICAL EXAMINATION: Patient alert and oriented x3. Pulse 65, blood pressure 115/75, respiration 14, temperature 98.1, pulse ox 97% on 2 L. HEENT: Conjunctivae normal. Oral mucosa moist. NECK: No jugular venous distention. No carotid bruit. No lymph node enlargement. CARDIOVASCULAR SYSTEM: S1, S2 muffled. RESPIRATORY SYSTEM: Breath sounds diminished at the bases. A few rhonchi. No crackles. ABDOMEN: Soft, non-tender. No mass palpable. LEGS: No edema. No swelling. NERVOUS SYSTEM: Higher functions as mentioned earlier. Moves all 4 limbs. No focal motor or sensory deficit. LYMPHATICS: No lymph node palpable in neck, axillae or groin. SKIN: No ulcer, rash, bleeding. JOINTS: No active deforming arthropathy. LABS: WBC 3.8, hemoglobin 13.5, MCV 107.8. Creatinine is 1.46, glucose 131. Total bilirubin is 1.5. ASSESSMENT: 1. Chest pain; possible unstable angina, possibly musculoskeletal pain. 2. Chronic obstructive pulmonary disease. 3. Increased creatinine with chronic kidney disease, stage 3. 4. Thrombocytopenia. 5. Increased bilirubin. 6. History of hepatitis C as well as cirrhosis of the liver. 7. History of congestive heart failure. 8. History of chronic obstructive pulmonary disease. 9. Gastroesophageal reflux disease. 10.Hypertension. 11.Chronic liver disease. 12.Hernia repair. 13.Remote history of nicotine dependence. 14.Obesity with body mass index of 39.6. RECOMMENDATIONS AND DISCUSSION: I recommend to continue current medications, continue with the monitoring, symptomatic treatment. Otherwise, rule out myocardial infarction. Unstable angina protocol. Resume the home medication. Closely follow with Cardiology. Recommend close followup in the outpatient setting with Dr. Mena. Guarded prognosis. Further recommendations to follow. MMODL / IJN: [id number] /
[2019-08-31] MEDS: FAMOTIDINE 20 MG/2 ML VIAL IV SCH (20:44)
[2019-09-01 06:12] LABS: Basophils % (A) 0 %; Eosinophils # (A) 0.2 k/uL (0-0.7); Eosinophils % (A) 6 %; HCT 37.5 % (39.0-53.0); HGB 12.1 gm/dL (13.0-17.5); Lymphocytes # (A) 0.8 k/uL (1.0-4.8); Lymphocytes % (A) 28 %; MCH 35.4 pg (25.0-35.0); MCHC 32.3 g/dL (31.0-37.0); Macrocytosis Marked; Mean Platelet Volume 10.9; Monocytes # (A) 0.2 k/uL (0-1.0); Monocytes % (A) 9 %; Neutrophils # (A) 1.5 k/uL (1.3-7.7); Neutrophils % (A) 54 %; RBC 3.42 m/uL (4.30-5.90); RDW 12.5 % (11.5-15.5); WBC 2.7 k/uL (3.8-10.6)
[2019-09-01 06:17] LABS: MCV 109.6 fL (80.0-100.0)
[2019-09-01 06:18] LABS: Platelet Count 33 k/uL (150-450)
[2019-09-01 06:31] LABS: Calcium 8.5 mg/dL (8.4-10.2)
[2019-09-01] MEDS ORDERED: PANTOPRAZOLE 40 MG TABLET PO SCH (07:30)
[2019-09-01] MEDS: IPRATROPIUM-ALBUTEROL 3 ML NEB INHALATION PRN (07:33)
--- NOTE | 2019-09-01 08:59 | CONS ---
CONSULTATION Mr. Lim is a 69-year-old male who presented with symptoms of chest discomfort that occurred at rest. The patient is followed by Dr. Thorpe. He has a known history of abdominal aortic aneurysm and is scheduled to undergo endovascular repair next month by Dr. Reynoso. He has a history of chronic obstructive lung disease and remote history of smoking. He has chronic dyspnea on exertion. He has chest discomfort on and off in the past, but not exertional in pattern. The discomfort yesterday occurred at rest. He is feeling well this morning. He denies any dizziness or palpitations. He has chronic peripheral edema. No PND nor orthopnea. According to him, he had a stress test done recently by Dr. Thorpe and that was reported to be unremarkable. The report is not available to me at this time. He has underwent an echocardiogram in January of 2019 that revealed a preserved left ventricular size and systolic function. His coronary risk factors are remarkable for the prior history of smoking. He is hypertensive, nondiabetic. MEDICATION: Include aspirin once a day, Coreg 25 mg twice a day, spironolactone 50 mg daily, Zestril 5 mg daily, Demodex 40 mg daily, Ventolin, Symbicort, and DuoNeb. REVIEW OF SYSTEMS: RESPIRATORY system: He has chronic dyspnea on exertion related to his chronic obstructive lung disease. GI system: No recent GI bleeding. No peptic ulcer disease. system: No dysuria or hematuria. NERVOUS SYSTEM: No history of stroke or seizure. PHYSICAL EXAMINATION: Blood pressure running in the 90s to 100 with a heart rate in the 50s. HEAD: Normocephalic. Eyes sclerae anicteric. Neck good upstroke. No bruit. No jugular venous distention. LUNGS: Clear to auscultation. HEART: Regular rate and rhythm S1, S2. No S3 with systolic ejection murmur. No diastolic murmur. No rub. ABDOMEN: Soft, obese, nontender. Positive bowel sounds. Extremities +1 edema bilaterally. LAB DATA: Revealed a BUN and creatinine of 30 and 1.44. Hemoglobin of 12.1, white blood cell of 2.7. Troponin less than 0.012. His renal functions in 2019 where normal. EKG revealed a sinus mechanism with left axis deviation. Chest x-ray shows no acute infiltrate. IMPRESSION: 1. Chest discomfort of unclear etiology. According to the patient, he has underwent a stress test recently that revealed no evidence of inducible ischemia. 2. History of abdominal aortic aneurysm, scheduled to undergo endovascular repair. 3. History of hypertension. 4. Obesity. 5. Chronic peripheral edema. 6. Abnormal renal function. RECOMMENDATIONS: From the cardiac standpoint, I will obtain the results of stress test that was obtained recently. I will decrease the dose of his Coreg and as well as the dose of his spironolactone in view of his renal function. Increase his activity. If there is no evidence of stress induced ischemia, I expect he should be able to be discharged home today and followed as an outpatient. Thank you for this consult. We will follow with you end dictation. The. MMBRAYAN / IJN: [id number] /
[2019-09-01] MEDS ORDERED: CHOLECALCIFEROL 1,000 UNIT TAB PO SCH (09:00)
[2019-09-01] MEDS ORDERED: ASPIRIN 81 MG PO SCH (09:00)
[2019-09-01] MEDS ORDERED: LISINOPRIL 5 MG TAB PO SCH (09:00)
[2019-09-01] MEDS ORDERED: SPIRONOLACTONE 25 MG TAB PO SCH ×2 (09:00)
[2019-09-01] MEDS ORDERED: TORSEMIDE 20 MG TAB PO SCH (09:00)
[2019-09-01 09:04] VITALS: BP 94/62; PULSE 60; RESP 18; TEMP 97.5
[2019-09-01] MEDS: FAMOTIDINE 20 MG/2 ML VIAL IV SCH (09:11)
[2019-09-01 12:33] LABS: Appearance,Urine Clear (Clear); Bilirubin,Urine Negative (Negative); Blood,Urine Negative (Negative); Color,Urine Light Yellow; Glucose,Urine (UA) Negative (Negative); Ketones,Urine Negative (Negative); Leukocyte Esterase,Urine Small (Negative); Mucus,Urine Rare /hpf; Nitrite,Urine Negative (Negative); PH, Urine 5.5 (5.0-8.0); Protein,Urine Negative (Negative); RBC,Urine <1 /hpf (0-5); Urobilinogen,Urine <2.0 mg/dL (<2.0); WBC,Urine 2 /hpf (0-5)
[2019-09-01] MEDS: SYMBICORT 160-4.5 MCG INHALER INHALATION SCH (12:39)
[2019-09-01] MEDS ORDERED: CARVEDILOL 12.5 MG TAB PO SCH (17:30)
--- NOTE | 2019-09-02 00:35 | DS ---
DISCHARGE SUMMARY FINAL DIAGNOSES: 1. Chest pain possible musculoskeletal pain. Myocardial infarction ruled out. 2. Chronic obstructive pulmonary disease. 3. Increased creatinine with chronic kidney stage III. 4. Abdominal aortic aneurysm for repair by Dr. Reynoso. 5. Thrombocytopenia. 6. Increased bilirubin. 7. History of hepatitis C as well as cirrhosis of the liver. 8. History of congestive heart failure. 9. History of chronic obstructive pulmonary disease. 10.Gastroesophageal reflux disease. 11.Hypertension. 12.History of chronic liver disease. 13.History of hernia repair. 14.Remote history of nicotine dependence. 15.Obesity with body mass index of 39.6. DISCHARGE DISPOSITION: The patient discharged in stable condition. Guarded prognosis. Discharge cleared by Cardiology. HISTORY OF PRESENT ILLNESS: This 69-year-old gentleman with a past medical history of multiple problems admitted with chest pain. Myocardial infarction ruled out. Dr. Bean saw the patient. Recommended the patient be discharge in the outpatient setting. Otherwise, creatinine 1.44, hemoglobin 12.1. On exam, vitals are stable. Cardiovascular system: S1, S2. Abdomen soft. Nervous system: No focal deficits. DISCHARGE ADVICE AND MEDICATIONS: 1. Discharge diet is cardiac diet. 2. Activity limited until followup. 3. Follow up with Dr. Mena in 1-2 days. 4. Follow up with Cardiology as recommended. 5. Follow up with Dr. Reynoso as recommended. 6. Aldactone 50 mg p.o. daily. 7. Coreg 25 mg p.o. b.i.d. 8. Torsemide 40 mg p.o. daily. 9. DuoNeb q.i.d. 10.Nitrostat p.r.n. 11.Symbicort 160/4.5 two puffs b.i.d. 12.Ventolin p.r.n. 13.Vitamin D3 1000 units daily. 14.Zestril 5 mg p.o. daily. 15.Aspirin 81 mg p.o. daily. MMODL / IJN: [id number] /
== END 2019-09-01 12:42 | disposition home or self-care (01) ==
LOC: EC 13:16 → 1SOBS 14:57
PROVIDERS: ADMIT Hospitalist; ATTEND Hospitalist
DX: R07.89 Other chest pain (principal); R20.0 Anesthesia of skin; R20.2 Paresthesia of skin; J44.9 Chronic obstructive pulmonary disease, unspecified; I71.4 Abdominal aortic aneurysm, without rupture; I13.0 Hypertensive heart and chronic kidney disease with heart failure and stage 1 through stage 4 chronic kidney disease, or unspecified chronic kidney disease; I50.9 Heart failure, unspecified; N18.3 Chronic kidney disease, stage 3 (moderate); K21.9 Gastro-esophageal reflux disease without esophagitis; K74.60 Unspecified cirrhosis of liver; B19.20 Unspecified viral hepatitis C without hepatic coma; D69.6 Thrombocytopenia, unspecified; E66.9 Obesity, unspecified; Z68.39 Body mass index [BMI] 39.0-39.9, adult; Z79.899 Other long term (current) drug therapy; Z79.51 Long term (current) use of inhaled steroids; Z79.82 Long term (current) use of aspirin; Z87.891 Personal history of nicotine dependence; Z80.9 Family history of malignant neoplasm, unspecified; Z11.59 Encounter for screening for other viral diseases
CPT/HCPCS: 96375; 96376; 96374; 99285; 36415; 94640 ×2; 93005 ×2; 80053; 80048; 83735; 84484 ×2; 85025 ×2; 85610; 85730; 81001; 71046; G0378 ×2; U0003; J2270

== ENCOUNTER → 2019-10-04 | Outpatient (CLI) | payer OTHER, MEDICARE ==
[2019-10-04 12:20] LABS: Basophils % (A) 1 %; Eosinophils # (A) 0.4 k/uL (0-0.7); Eosinophils % (A) 9 %; HCT 37.7 % (39.0-53.0); HGB 12.5 gm/dL (13.0-17.5); Lymphocytes # (A) 1.1 k/uL (1.0-4.8); Lymphocytes % (A) 27 %; MCH 36.2 pg (25.0-35.0); MCHC 33.1 g/dL (31.0-37.0); MCV 109.3 fL (80.0-100.0); Macrocytosis Moderate; Mean Platelet Volume 10.9; Monocytes # (A) 0.3 k/uL (0-1.0); Monocytes % (A) 7 %; Neutrophils # (A) 2.3 k/uL (1.3-7.7); Neutrophils % (A) 55 %; RBC 3.45 m/uL (4.30-5.90); RDW 12.8 % (11.5-15.5); WBC 4.1 k/uL (3.8-10.6)
[2019-10-04 12:38] LABS: Platelet Count 45 k/uL (150-450)
[2019-10-04 17:03] LABS: African American GFR (CKD) 35.9 (60.0-200.0); Anion Gap 7.4 mmol/L (4.00-12.00); Carbon Dioxide 25.6 mmol/L (21.6-31.8); Potassium 4.3 mmol/L (3.5-5.5)
== END | disposition home or self-care (01) ==
LOC: LABWHC1 11:02
PROVIDERS: ATTEND Surgery
DX: Z01.818 Encounter for other preprocedural examination (principal); I71.4 Abdominal aortic aneurysm, without rupture
CPT/HCPCS: 36415; 80051; 82565; 84520; 85025

== ENCOUNTER 2019-10-16 06:04 | Inpatient (IN) | payer OTHER, MEDICARE ==
[2019-10-15 09:01] VITALS: BMI 38.2
[~2019-10-16 06:04] MED LIST: DEXAMETHASONE SOD PHOSPHATE 10 MG/ML 1 ML VIAL IV ONE; HYDROmorphone 0.5 MG/0.5 ML SYRINGE IVP PRN; LIDOCAINE 1% (10MG/ML) FOR IV START INTRADERMA PRN; SODIUM CHLORIDE 0.9% 1,000 ML in EMPTY BAG 1 BAG IV ONE
[2019-10-16] MEDS ORDERED: SODIUM CHLORIDE 0.9% 1,000 ML IV ONE ×3 (06:20→10:25)
[2019-10-16 06:33] LABS: Glucose,Whole Blood 115 mg/dL (75-99)
[2019-10-16] MEDS ORDERED: ceFAZolin 1,000 MG VIAL ONE (07:50)
[2019-10-16] MEDS ORDERED: PROTAMINE SULFATE 10 MG/ML 25 ML VIAL IV ONE (07:50)
[2019-10-16] MEDS ORDERED: HEPARIN SODIUM,PORCINE 10,000 UNIT/ML 1 ML VIAL ONE (07:50)
[2019-10-16] MEDS ORDERED: NEOSTIGMINE 1 MG/ML 10 ML VIAL ONE (07:50)
[2019-10-16] MEDS ORDERED: PROPOFOL 10 MG/ML 20 ML VIAL IV ONE (07:50)
[2019-10-16] MEDS ORDERED: SODIUM CHLORIDE 0.9% 100 ML BAG ONE (07:50)
[2019-10-16] MEDS ORDERED: MIDAZOLAM 2 MG/2 ML VIAL ONE (07:50)
[2019-10-16] MEDS ORDERED: ROCURONIUM BROMIDE 10 MG/ML 5 ML VIAL IV ONE (07:50)
[2019-10-16] MEDS ORDERED: fentaNYL (PF) 50 MCG/ML 2 ML AMP ONE (07:50)
[2019-10-16] MEDS ORDERED: SUCCINYLCHOLINE CHLORIDE 100 MG/5 ML SYR IV ONE (07:50)
[2019-10-16] MEDS ORDERED: GLYCOPYRROLATE 0.2 MG/ML 2 ML VIAL ONE (07:50)
[2019-10-16] MEDS ORDERED: PHENYLEPHRINE-0.9% NACL SYG 1 MG/10 ML SYRINGE ONE (07:50)
[2019-10-16 08:44] LABS: Calcium 8.9 mg/dL (8.4-10.2); Potassium 4.9 mmol/L (3.5-5.1)
[2019-10-16] MEDS ORDERED: IOPAMIDOL-250 100ML BTL INTRAARTER ONE (09:54)
--- NOTE | 2019-10-16 10:11 | P.OP ---
Date of Procedure: 10/16/19 Preoperative Diagnosis: Infrarenal AAA 5.6 cm Postoperative Diagnosis: Same Procedure(s) Performed: 1. Percutaneous endovascular aortic repair with ovation iX device 2. Intravascular ultrasound of the aorta, iliac, femoral arteries bilaterally 3. Perclose closure device bilateral femoral arteries Implants: Ovation iX 23mm graft Anesthesia: BILL Surgeon: Georgi Reynoso Lumber Sorter Machine #1: Katharine Lee Estimated Blood Loss (ml): 100 IV fluids (ml): 1,000 (4pack of platelets) Pathology: none sent Condition: stable Disposition: PACU Indications for Procedure: 69-year-old gentleman with history of infrarenal AAA presents to the operating room for endovascular aortic repair. Patient has been scheduled multiple times and had to be canceled due to his low platelet count. Patient presents today for endovascular aortic repair and platelets are going to be transfused during procedure. Description of Procedure: After written and informed consent was obtained the patient was brought to the operative suite and laid in a supine position. The area of the abdomen and groins were prepped and draped in usual sterile fashion after appropriate anesthetic was performed per the anesthesiologist. A timeout was performed in normal fashion and antibiotics were administered prior to access. Platelets were being administered during the procedure. Utilizing ultrasound bilateral common femoral arteries were accessed and shown to be without significant calcification and were patent. The vessels were accessed with a multipurpose needle and a guidewire was placed followed by a 6-Mongolian sheath after small incision was created with 11 blade scalpel and dissection down with a stat. 2 Perclose closure device were placed on each femoral artery followed by a 10- Mongolian sheath. 035 Glidewire was then placed up the right common femoral sheath. Patient was administered heparin and followed with serial ACTs for appropriate heparinization. Intravascular ultrasound was then guided over the guidewire and measurements were obtained of the infrarenal aorta which were 19 mm at the landing zone and therefore a 23 mm device was chosen to be placed. Glidewire was then removed and replaced with a stiff Lunderquist wire. IVUS catheter was removed and the 23 mm deployment aortic body delivery system was then guided over the guidewire after removal of the 10-Mongolian sheath. A 23 mm ovation graft was then placed just below the left renal artery and was deployed in normal fashion with crossing of the limbs and pigtail catheter was brought down into the distal aorta. Once suprarenal fixation was deployed polymer was then placed in normal fashion under direct visualization of fluoroscopy. Lunderquist wire was then pulled back to the distal limb of the graft. Attention was then placed to the contralateral limb and utilizing a Glidewire the contralateral limb was accessed. Intravascular ultrasound was then placed to verify appropriate cannulation which was verified. Glidewire was then removed and replaced with an Amplatz wire. I this was then brought down and measured to the internal iliac artery which measured approximately 12 cm. A 12 x 120 mm limb was then chosen to be deployed on the contralateral side. The 10- Mongolian sheath was removed and the contralateral limb was deployed in normal fashion just above the internal iliac artery. After deployed attention was then placed to the main body and final deployment was performed in normal fashion. Lunderquist wire was then placed back into the descending thoracic aorta and the main body deployment sheath was removed in normal fashion. Intravascular ultrasound catheter was then placed once again into the ipsilateral limb and measurements were obtained at the distal landing zone just above the internal iliac artery. A 14 x 100 mm limb was then chosen to be deployed and it was placed in normal fashion after removal of the previous sheath. Once completed the Q 50 balloon was placed and balloon angioplasty was performed at the polymer ring. 2 10 x 40 mm balloons were then placed and in a kissing fashion the limbs were angioplastied. Final angiogram was then obtained after removal of the balloons an placement of a pigtail catheter which demonstrated no evidence of type I, type II or type III endoleak. Protamine was administered to reverse the heparin. All catheters and guidewires were then removed from the left and the Perclose closure device was secured in normal fashion with good hemostasis. Angiogram was once again obtained of the left which demonstrated no extravasation and good flow through the common femoral, profunda and superficial femoral arteries. Perclose closure device was then secured on the right after pigtail catheter was removed and Glidewire was placed. Hemostasis was assured once the Perclose was completed. The area was then cleansed and dressings were placed. Patient tied procedure well had multiphasic DP signals at the conclusion of the procedure and he was sent to PACU for recovery.
[2019-10-16] MEDS ORDERED: ALBUTEROL NEBULIZED 2.5 MG/3 ML INHALATION ONE (10:25)
[2019-10-16] MEDS: LACTATED RINGERS 1,000 ML IV SCH ×2 (15:10→19:01)
[2019-10-16 15:26] LABS: Glucose,Whole Blood 116 mg/dL (75-99)
[2019-10-16] MEDS: SODIUM CHLORIDE 0.9% 1,000 ML IV SCH ×2 (16:13→20:22)
--- NOTE | 2019-10-16 16:37 | P.CNPUL ---
History of Present Illness Consult date: 10/16/19 Requesting physician: Georgi Reynoso Reason for consult: other (status postor cutaneous endovascular aortic repair, ICU management) Chief complaint: status post percutaneous endovascular aortic repair History of present illness: this is a 69-year-old white male with history of infrarenal abdominal aortic aneurysm, patient underwent elective endovascular aortic repair today, postoperatively patient was admitted to the intensive care unit, and I was asked to see him on consultation.patient is known to have history of congestive heart failure, hepatitis C, treated 2, history of hypertension, GERD without esophagitis,his abdominal aortic aneurysm was recently discovered on ultrasound of the abdomen, and he underwent CT angiogram which demonstrated a 5.45.2 infrarenal abdominal aortic aneurysm patient has been complaining of left foot pain. I saw the patient in the ICU, he had no complaints of shortness of breath, no cough, no wheezing, no chest pain. And he was noted to be hemodyn amically stable, not requiring any pressors Review of Systems constitutional: Negative HEENT: Negative Pulmonary: History of COPD maintained on inhalers at home. Cardiac: Negative GI: Negative Genitourinary: Negative Musculoskeletal: Negative Skin: Negative Neurologic: Negative Psychiatric: Negative Hematologic: Negative Endocrine: Negative Skin: Negative Past Medical History Past Medical History: Atrial Fibrillation, Cancer, Heart Failure, COPD, GERD/Reflux, Hypertension, Liver Disease, Vascular Disorder Additional Past Medical History / Comment(s): hepatitis C treated X 2, CIRRHOSIS OF LIVER, 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 skin cancer nose-removed History of Any Multi-Drug Resistant Organisms: None Reported Past Surgical History: Heart Catheterization, Hernia Repair, Orthopedic Surgery Additional Past Surgical History / Comment(s): HEART CATHX2, RIGHT shoulder surgery, UMBILICAL HERNIA REPAIR, Past Anesthesia/Blood Transfusion Reactions: Motion Sickness Smoking Status: Current every day smoker - Past Family History Mother Family Medical History: Cancer Medications and Allergies Home Medications Medication Instructions Recorded Confirmed Type Budesonide-Formot 160-4.5 Mcg 2 puff INHALATION RT-BID 05/11/19 10/16/19 History [Symbicort 160-4.5 Mcg Inhaler] Cholecalciferol [Vitamin D3 (25 1,000 unit PO DAILY 05/11/19 10/16/19 History Mcg = 1000 Iu)] Ipratropium-Albuterol Nebulize 3 ml INHALATION RT-Q6H 05/11/19 10/16/19 History [Duoneb 0.5 mg-3 mg/3 ml Soln] Albuterol Sulfate [Ventolin HFA] 1 - 2 puff INHALATION RT-Q6H PRN 08/31/19 10/16/19 History Nitroglycerin Sl Tabs [Nitrostat] 0.4 mg PO Q5M PRN 08/31/19 10/15/19 History Spironolactone [Aldactone] 50 mg PO DAILY 08/31/19 10/16/19 History Torsemide [Demadex] 40 mg PO DAILY 08/31/19 10/16/19 History carvediloL [Carvedilol] 25 mg PO BID 08/31/19 10/16/19 History lisinopriL [Zestril] 5 mg PO HS 08/31/19 10/16/19 History allopurinoL [Zyloprim] 300 mg PO HS 09/10/19 10/16/19 History Allergies Allergy/AdvReac Type Severity Reaction Status Date / Time No Known Allergies Allergy Verified 10/15/19 08:53 Physical Exam Vitals: Vital Signs Temp Pulse Resp BP BP Pulse Ox 10/16/19 15:15 61 16 109/61 98 10/16/19 14:13 56 L 16 101/73 94 L 10/16/19 13:29 52 L 16 106/62 96 10/16/19 13:10 50 L 14 106/62 96 10/16/19 12:55 54 L 16 94/50 98 10/16/19 12:19 60 16 103/56 98 10/16/19 11:56 56 L 16 102/54 98 10/16/19 11:55 59 L 17 111/62 110/53 98 10/16/19 11:40 49 L 14 107/64 108/53 100 10/16/19 11:25 54 L 17 111/68 117/58 100 10/16/19 11:10 53 L 18 101/59 104/50 100 10/16/19 10:55 56 L 18 111/61 112/56 98 10/16/19 10:40 64 20 120/68 120/54 95 10/16/19 10:25 96.9 F L 67 20 130/65 128/56 94 L 10/16/19 06:30 98.0 F 79 18 101/56 79 L Intake and Output 10/16/19 10/16/19 10/16/19 06:59 14:59 22:59 Intake Total 150 1708 Output Total 635 550 Balance 150 1073 -550 Intake: IV 150 1500 Sodium Chloride 0.9% 1, 0 000 ml @ 100 mls/hr IV . Q10H [facility] Rx#:[id number] Blood Product 208 Platelet Irr Pheresis 3 208 Acda Unit [id number] Output: Urine 635 550 Other: Weight 136.8 kg GENERAL: This is a 69-year-old male in no apparent distress on 2 L no discharge. HEENT: Head is atraumatic, normocephalic. Pupils are equal, round. Sclerae anicteric. Conjunctivae are clear. Mucous membranes of the mouth are moist. Neck is supple. There is no jugular venous distention. No carotid bruit is heard. LUNGS: Clear to auscultation no wheezes, rales or rhonchi. No chest wall tenderness is noted on palpation or with deep breathing. HEART: Regular rate and rhythm without murmurs, rubs or gallops. S1 and S2 heard. ABDOMEN: obese,Soft, nontender. Bowel sounds are heard. No organomegaly noted. EXTREMITIES: 1+ bipedal edema, surgical dressings noted in both groin areas. VASCULAR: diminished distal pulses bilaterally in both lower extremities. NEUROLOGIC: Patient is awake, alert and oriented x3. psychiatric: Normal mood, affect and normal mental status examination. Skin: No rashes. Results - Laboratory Findings CBC and BMP: 10/16/19 08:17 Abnormal lab findings: Abnormal Labs 10/16/19 10/16/19 10/16/19 06:32 08:17 15:24 Chloride 111 H Carbon Dioxide 21 L BUN 52 H Creatinine 2.12 H Glucose 114 H POC Glucose (mg/dL) 115 H 116 H Assessment and Plan Assessment: impression: status post percutaneous endovascular aortic repair with ovation ix device.postoperative day #0. Intravascular ultrasound of the aortic iliac femoral arterial bilaterally. history of chronic obstructive pulmonary disease. History of hepatitis C and cirrhosis of the liver. Hypertension. Remote history of nicotine dependence. Morbid obesity with body mass index of 39.6. recommendation: Continue present supportive care measures. Resume home meds including cardiac meds and diuretics. Continue DuoNeb 4 times a day and when necessary. Continue Symbicort. Early ambulation. Incentive spirometry. We'll continue to follow. Time with Patient: Greater than 30
[2019-10-16] MEDS: SYMBICORT 160-4.5 MCG INHALER INHALATION SCH (20:20)
[2019-10-16] MEDS: IPRATROPIUM-ALBUTEROL 3 ML NEB INHALATION PRN (20:20)
--- NOTE | 2019-10-16 22:34 | P.CONS ---
History of Present Illness - Reason for Consult Consult date: 10/16/19 Medical management - Chief Complaint Elective abdominal aortic aneurysm repair. - History of Present Illness Patient is a 69-year-old male with a known history of paroxysmal atrial fibrillation, chronic CHF, hypertension, liver cirrhosis, history of hepatitis C status post treatment and currently everyday smoker was recently diagnosed with abdominal aortic aneurysm 5.4 x 5.2 cm infrarenal abdominal aortic aneurysm. Patient has been complaining of left foot pain. Patient is status post elective endovascular aortic repair done today. Currently patient is being monitored in the MICU. Blood pressure is 119/61, heart rate 61 respiration rate 16 and pulse ox 98% on room air. Laboratory data showed sodium 138, potassium 4.9, bicarb is 21, BUN 52 and creatinine 2.12. GFR 31 Baseline creatinine around 1.1 in January 2019 Review of Systems Constitutional: Patient denies any fever or chills . No generalized weakness or weight loss. Abdomen: Patient denied nausea vomiting and diarrhea and abdominal pain. Cardiovascular: Patient denies any chest pain or short of breath no palpitations. Respiratory: patient denied any cough is from production. No shortness of breath Neurologic: Patient denied any numbness or tingling headache. Musculoskeletal: Patient denies any complaints of joint swelling or deformity. Skin: Negative Psychiatric: Negative Endocrine: No heat or cold intolerance. No recent weight gain. Genitourinary: No dysuria or hematuria. All other 14 point ROS negative except the above Past Medical History Past Medical History: Atrial Fibrillation, Cancer, Heart Failure, COPD, GERD/Reflux, Hypertension, Liver Disease, Vascular Disorder Additional Past Medical History / Comment(s): hepatitis C treated X 2, CIRRHOSIS OF LIVER, 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 skin cancer nose-removed History of Any Multi-Drug Resistant Organisms: None Reported Past Surgical History: Heart Catheterization, Hernia Repair, Orthopedic Surgery Additional Past Surgical History / Comment(s): HEART CATHX2, RIGHT shoulder surgery, UMBILICAL HERNIA REPAIR, Past Anesthesia/Blood Transfusion Reactions: Motion Sickness Smoking Status: Current every day smoker - Past Family History Mother Family Medical History: Cancer Medications and Allergies Home Medications Medication Instructions Recorded Confirmed Type Budesonide-Formot 160-4.5 Mcg 2 puff INHALATION RT-BID 05/11/19 10/16/19 History [Symbicort 160-4.5 Mcg Inhaler] Cholecalciferol [Vitamin D3 (25 1,000 unit PO DAILY 05/11/19 10/16/19 History Mcg = 1000 Iu)] Ipratropium-Albuterol Nebulize 3 ml INHALATION RT-Q6H 05/11/19 10/16/19 History [Duoneb 0.5 mg-3 mg/3 ml Soln] Albuterol Sulfate [Ventolin HFA] 1 - 2 puff INHALATION RT-Q6H PRN 08/31/19 10/16/19 History Nitroglycerin Sl Tabs [Nitrostat] 0.4 mg PO Q5M PRN 08/31/19 10/15/19 History Spironolactone [Aldactone] 50 mg PO DAILY 08/31/19 10/16/19 History Torsemide [Demadex] 40 mg PO DAILY 08/31/19 10/16/19 History carvediloL [Carvedilol] 25 mg PO BID 08/31/19 10/16/19 History lisinopriL [Zestril] 5 mg PO HS 08/31/19 10/16/19 History allopurinoL [Zyloprim] 300 mg PO HS 09/10/19 10/16/19 History Allergies Allergy/AdvReac Type Severity Reaction Status Date / Time No Known Allergies Allergy Verified 10/15/19 08:53 Physical Exam Vitals: Vital Signs Temp Pulse Resp BP BP Pulse Ox 10/16/19 15:15 61 16 109/61 98 10/16/19 14:13 56 L 16 101/73 94 L 10/16/19 13:29 52 L 16 106/62 96 10/16/19 13:10 50 L 14 106/62 96 10/16/19 12:55 54 L 16 94/50 98 10/16/19 12:19 60 16 103/56 98 10/16/19 11:56 56 L 16 102/54 98 10/16/19 11:55 59 L 17 111/62 110/53 98 10/16/19 11:40 49 L 14 107/64 108/53 100 10/16/19 11:25 54 L 17 111/68 117/58 100 10/16/19 11:10 53 L 18 101/59 104/50 100 10/16/19 10:55 56 L 18 111/61 112/56 98 10/16/19 10:40 64 20 120/68 120/54 95 10/16/19 10:25 96.9 F L 67 20 130/65 128/56 94 L 10/16/19 06:30 98.0 F 79 18 101/56 79 L Intake and Output 10/16/19 10/16/19 10/16/19 06:59 14:59 22:59 Intake Total 150 1708 100 Output Total 635 680 Balance 150 1073 -580 Intake: IV 150 1500 100 Sodium Chloride 0.9% 1, 0 100 000 ml @ 100 mls/hr IV . Q10H [facility] Rx#:[id number] Blood Product 208 Platelet Irr Pheresis 3 208 Acda Unit [id number] Output: Urine 635 680 Other: Weight 136.8 kg PHYSICAL EXAMINATION: Patient is lying in the bed comfortably, no acute distress, awake alert and oriented.. HEENT: Normocephalic. Neck is supple. Pupils reactive. Nostrils clear. Oral cavity is moist. Ears reveal no drainage. Neck reveals no JVD, carotid bruits, or thyromegaly. CHEST EXAMINATION: Trachea is central. Symmetrical expansion. Bibasilar diminished air entry. Lung navarro clear to auscultation and percussion. CARDIAC: Normal S1, S2 with no gallops. No murmurs ABDOMEN: Soft.Surgical site is bandaged. Bowel sounds present. No organomegaly. No abdominal bruits. Extremities: reveal no edema. No clubbing or cyanosis Neurologically awake, alert, oriented x3 with well-coordinated movements. No focal deficits noted Skin: No rash or skin lesions. Psychiatric: Coperative. Nonsuicidal Musculoskeletal: No joint swelling or deformity. Normal range of motion. Results CBC & Chem 7: 10/16/19 08:17 Labs: Abnormal Lab Results - Last 24 Hours (Table) 10/16/19 10/16/19 10/16/19 Range/Units 06:32 08:17 15:24 Chloride 111 H (98-107) mmol/L Carbon Dioxide 21 L (22-30) mmol/L BUN 52 H (9-20) mg/dL Creatinine 2.12 H (0.66-1.25) mg/dL Glucose 114 H (74-99) mg/dL POC Glucose (mg/dL) 115 H 116 H (75-99) mg/dL Assessment and Plan Assessment: Status post percutaneous endovascular abdominal aortic repair due to aneurysm. POD #0 Acute on chronic kidney disease stage III. Creatinine 2.12. Baseline around 1.1 Hypertension. Patient is currently hypotensive Chronic CHF with diastolic dysfunction GERD COPD not in exacerbation Liver cirrhosis Hepatitis C status post treatment Ongoing nicotine addiction Morbid obesity with BMI 38.7 DVT prophylaxis Plan: Patient will be continued on duo nebs and Symbicort. Patient does take blood pressure medications lisinopril, Coreg and torsemide, spironolactone which are on hold due to hypotension. Will be started back once blood pressure improves. Continue with telemetry monitoring. Monitor his and his. Monitor renal function Further recommendations based on clinical course. We will continue to follow with you. Thank you for your consult. Time with Patient: Greater than 30
[2019-10-17] MEDS ORDERED: TEMAZEPAM 15 MG CAP PO ONE (00:46)
[2019-10-17 04:37] LABS: Basophils % (A) 0 %; Eosinophils # (A) 0.2 k/uL (0-0.7); Eosinophils % (A) 5 %; HCT 30.4 % (39.0-53.0); HGB 10.3 gm/dL (13.0-17.5); Lymphocytes # (A) 0.8 k/uL (1.0-4.8); Lymphocytes % (A) 22 %; MCH 36.7 pg (25.0-35.0); MCHC 33.8 g/dL (31.0-37.0); MCV 108.6 fL (80.0-100.0); Macrocytosis Moderate; Mean Platelet Volume 10.5; Monocytes # (A) 0.4 k/uL (0-1.0); Monocytes % (A) 9 %; Neutrophils # (A) 2.3 k/uL (1.3-7.7); Neutrophils % (A) 62 %; RDW 12.2 % (11.5-15.5); WBC 3.8 k/uL (3.8-10.6)
[2019-10-17] MEDS: IPRATROPIUM-ALBUTEROL 3 ML NEB INHALATION PRN ×3 (04:41→12:35)
[2019-10-17 04:47] LABS: Calcium 8.7 mg/dL (8.4-10.2); Potassium 4.6 mmol/L (3.5-5.1)
[2019-10-17 04:49] LABS: Platelet Count 42 k/uL (150-450)
[2019-10-17] MEDS: SODIUM CHLORIDE 0.9% 1,000 ML IV SCH (07:04)
--- NOTE | 2019-10-17 07:15 | XR ---
EXAMINATION TYPE: XR chest 1V portable DATE OF EXAM: 10/17/2019 Comparison: 08/31/2019 Clinical History: 69-year-old male shortness of breath, assess lungs Findings: Heart upper limits of normal in size. Patchy bibasilar opacities are new. Upper lungs are relatively clear. Aorta within normal limits. Impression: New patchy bibasilar atelectasis versus infiltrates.
[2019-10-17] MEDS: SYMBICORT 160-4.5 MCG INHALER INHALATION SCH (08:01)
[2019-10-17] MEDS ORDERED: FUROSEMIDE 10 MG/ML 2 ML VIAL IV STA (08:34)
--- NOTE | 2019-10-17 09:37 | P.DS ---
Providers Date of admission: 10/16/19 06:04 Expected date of discharge: 10/17/19 Attending physician: Georgi Reynoso DO Consults: 10/16/19 05:34 Consult to Anesthesia Routine Consulting Provider: Anesthesia,Services Consult Reason/Comments: General anesthesia for Aortic Stent procedure 10/16/19 10:11 Consult Physician Routine Consulting Provider: Aristides Mena Consult Reason/Comments: post op AAA repair Do you want consulting provider notified?: Yes 10/16/19 10:16 Consult Physician Routine Consulting Provider: Sorin Bates Consult Reason/Comments: post op aaa, thrombocytopenia Do you want consulting provider notified?: Yes 10/16/19 16:39 Consult Physician Routine Consulting Provider: Juanjo Ratliff Consult Reason/Comments: medical management Do you want consulting provider notified?: Yes Primary care physician: Aristides [facility] Course: A pleasant 69-year-old obese male with a known history of proximal atrial fibrillation, chronic congestive heart failure, hypertension, liver cirrhosis, history of hepatitis C status post treatment, and a current every day smoker who was recently diagnosed with an 5.4 x 5.2 cm infrarenal abdominal aortic a neurysm. He was scheduled for an elective repair of his abdominal aortic aneurysm. He is status postop day #1 for a percutaneous endovascular aortic repair with ovation iX device. The patient denies any pain, chest pain, and states that shortness of breath has improved. Patient was experiencing some shortness of breath yesterday, he did have a breathing treatment this morning and states his breathing seems to be better. He is able to move bilateral lower extremities without any difficulty or pain. Bilateral incision sites has small amount of blood with Tegaderm dressing. His vital signs have been stable through the night. Patient ate breakfast without any complaints this morning. Lee catheter and arterial line are still in place. Assessment: General appearance: The patient is alert, oriented, in no acute distress. Obese HET: Head is normocephalic and atraumatic. Neck: Supple without lymphadenopathy. Trachea midline. Heart: S1 S2. Regular rate and rhythm. Lungs: No crackles or wheezes are heard. Abdomen: Soft, nontender, nondistended with bowel sounds. No peritoneal signs. No palpable organomegaly or masses. Extremities: Normal skin color and turgor. No cyanosis. Normal capillary refill, has bilateral lower extremity edema. Palpable bilateral femoral pulses, bilateral incision sites with scant amount of bleeding with Tegaderm dressing. Left groin with minimal amount of ecchymosis. No palpable hematomas. Able to freely move bilateral lower extremities without difficulty or pain. Neurological: No focal deficits. Strength and sensation are grossly intact. Assessment: 1. Postop day 1 status post percutaneous endovascular abdominal aortic repair 2. Infrarenal abdominal aortic aneurysm 5.6 cm 3. Proximal atrial fibrillation 4. Chronic congestive heart failure 5. Hypertension 6. Liver cirrhosis 7. Tobacco abuse Plan: Arterial line and Lee catheter to be discontinued if patient is able to void and get up and ambulate without any difficulty with breathing or shortness of breath he may be discharged after lunch. Please apply 4 x 4 with Tegaderm dressing to bilateral groin incision sites. Patient is instructed that he may shower tomorrow, no tub baths. No heavy lifting or than 5-10 pounds or strenuous activity over evaluated with Dr. Reynoso. Patient to follow-up with Dr. Reynoso in 7-10 days. The above dictated assessment and findings were discussed with Dr. Lee. The impression and plan of care have been directed as dictated. Procedures: Percutaneous endovascular abdominal aortic repair Patient Condition at Discharge: Good Plan - Discharge Summary Discharge Rx Participant: No New Discharge Prescriptions: No Action Budesonide-Formot 160-4.5 Mcg [Symbicort 160-4.5 Mcg Inhaler] 2 puff INHALATION RT-BID Ipratropium-Albuterol Nebulize [Duoneb 0.5 mg-3 mg/3 ml Soln] 3 ml INHALATION RT-Q6H Cholecalciferol [Vitamin D3 (25 Mcg = 1000 Iu)] 1,000 unit PO DAILY Albuterol Sulfate [Ventolin HFA] 1 - 2 puff INHALATION RT-Q6H PRN PRN Reason: Shortness Of Breath carvediloL [Carvedilol] 25 mg PO BID lisinopriL [Zestril] 5 mg PO HS Nitroglycerin Sl Tabs [Nitrostat] 0.4 mg PO Q5M PRN PRN Reason: Chest Pain Spironolactone [Aldactone] 50 mg PO DAILY Torsemide [Demadex] 40 mg PO DAILY allopurinoL [Zyloprim] 300 mg PO HS Discharge Medication List Budesonide-Formot 160-4.5 Mcg [Symbicort 160-4.5 Mcg Inhaler] 2 puff INHALATION RT-BID 05/11/19 [History] Cholecalciferol [Vitamin D3 (25 Mcg = 1000 Iu)] 1,000 unit PO DAILY 05/11/19 [History] Ipratropium-Albuterol Nebulize [Duoneb 0.5 mg-3 mg/3 ml Soln] 3 ml INHALATION RT-Q6H 05/11/19 [History] Albuterol Sulfate [Ventolin HFA] 1 - 2 puff INHALATION RT-Q6H PRN 08/31/19 [History] Nitroglycerin Sl Tabs [Nitrostat] 0.4 mg PO Q5M PRN 08/31/19 [History] Spironolactone [Aldactone] 50 mg PO DAILY 08/31/19 [History] Torsemide [Demadex] 40 mg PO DAILY 08/31/19 [History] carvediloL [Carvedilol] 25 mg PO BID 08/31/19 [History] lisinopriL [Zestril] 5 mg PO HS 08/31/19 [History] allopurinoL [Zyloprim] 300 mg PO HS 09/10/19 [History] Follow up Appointment(s)/Referral(s): [facility], [NON-STAFF] - 1-2 Days Georgi Reynoso DO [STAFF PHYSICIAN] - 1 Week Activity/Diet/Wound Care/Special Instructions: May shower starting tomorrow, no tub bath. No lifting greater than 5-10 pounds, no strenuous activity. Monitor for signs of bleeding and infection from incision sites, call office with any concerns. Follow-up with Dr. Reynoso in 7- 10 days. Discharge Disposition: HOME WITH HOME HEALTH SERVICES
[2019-10-17 10:39] VITALS: TEMP 97.9
--- NOTE | 2019-10-17 12:48 | P.PN ---
Subjective Progress Note Date: 10/17/19 Principal diagnosis: Status post percutaneous endovascular aortic repair. this is a 69-year-old white male with history of infrarenal abdominal aortic aneurysm, patient underwent elective endovascular aortic repair today, postoperatively patient was admitted to the intensive care unit, and I was asked to see him on consultation.patient is known to have history of congestive heart failure, hepatitis C, treated 2, history of hypertension, GERD without esophagitis,his abdominal aortic aneurysm was recently discovered on ultrasound of the abdomen, and he underwent CT angiogram which demonstrated a 5.45.2 infrarenal abdominal aortic aneurysm patient has been complaining of left foot pain. I saw the patient in the ICU, he had no complaints of shortness of breath, no cough, no wheezing, no chest pain. And he was noted to be hemodynamically stable, not requiring any pressors Patient was reevaluated today on 10/17/19, remains in the ICU, on room air, IV fluid is at KVO, patient is hemodynamically stable, in no distress, denies any shortness of breath or cough or wheezing, however on physical examination had very minimal fine crackles at the bases, and I recommended one dose of Lasix 20 mg IV push what times one. CBC showed the PEEP cigar of 3.8 hemoglobin is 10.3 left lites are normal renal profile showed a creatinine of 1.86, and his baseline yesterday was 2.12. Objective - Vital Signs Vital signs: Vital Signs Temp 97.9 F 10/17/19 08:00 Pulse 74 10/17/19 12:35 Resp 44 H 10/17/19 12:00 BP 131/75 10/17/19 12:00 Pulse Ox 94 L 10/17/19 12:00 Intake & Output 10/16/19 10/17/19 10/17/19 18:59 06:59 18:59 Intake Total 2007 1490 700 Output Total 1460 1315 1375 Balance 548 175 -675 Weight 138.2 kg Intake: IV 1800 1200 200 Sodium Chloride 0.9% 1, 300 1200 200 000 ml @ 100 mls/hr IV . Q10H [facility] Rx#:[id number] Oral 290 500 Blood Product 208 Platelet Irr Pheresis 3 208 Acda Unit [id number] Output: Urine 1460 1315 1375 Other: Voiding Method Indwelling Catheter Indwelling Catheter ABP, PAP, CO, CI - Last Documented Arterial Blood Pressure 103/45 - Exam GENERAL: This is a 69-year-old male in no apparent distress on room air. HEENT: Head is atraumatic, normocephalic. Pupils are equal, round. Sclerae anicteric. Conjunctivae are clear. Mucous membranes of the mouth are moist. Neck is supple. There is no jugular venous distention. No carotid bruit is heard. LUNGS: Very minimal fine crackles at the bases, no rhonchi and no wheezes. HEART: Regular rate and rhythm without murmurs, rubs or gallops. S1 and S2 heard. ABDOMEN: obese,Soft, nontender. Bowel sounds are heard. No organomegaly noted. EXTREMITIES: 1+ bipedal edema, surgical dressings noted in both groin areas. VASCULAR: diminished distal pulses bilaterally in both lower extremities. NEUROLOGIC: Patient is awake, alert and oriented x3. psychiatric: Normal mood, affect and normal mental status examination. Skin: No rashes. - Labs CBC & Chem 7: 10/17/19 04:25 10/17/19 04:25 Labs: Abnormal Lab Results - Last 24 Hours (Table) 10/16/19 10/17/19 10/17/19 Range/Units 15:24 04:25 04:25 RBC 2.80 L (4.30-5.90) m/uL Hgb 10.3 L (13.0-17.5) gm/dL Hct 30.4 L (39.0-53.0) % MCV 108.6 H (80.0-100.0) fL MCH 36.7 H (25.0-35.0) pg Plt Count 42 L (150-450) k/uL Lymphocytes # 0.8 L (1.0-4.8) k/uL Sodium 135 L (137-145) mmol/L Chloride 111 H (98-107) mmol/L Carbon Dioxide 21 L (22-30) mmol/L BUN 38 H (9-20) mg/dL Creatinine 1.86 H (0.66-1.25) mg/dL POC Glucose (mg/dL) 116 H (75-99) mg/dL Assessment and Plan Assessment: impression: status post percutaneous endovascular aortic repair with ovation ix device.postoperative day #1 Intravascular ultrasound of the aortic iliac femoral arterial bilaterally. history of chronic obstructive pulmonary disease. History of hepatitis C and cirrhosis of the liver. Hypertension. Remote history of nicotine dependence. Morbid obesity with body mass index of 39.6. recommendation: Continue present supportive care measures. Resume home diuretics. Resume home meds. Incentive spirometry. Agree with discharge planning today if cleared by vascular surgery. Time with Patient: Less than 30
[2019-10-17 14:49] VITALS: BP 121/72; PULSE 71; RESP 19
--- NOTE | 2019-10-17 16:41 | IR ---
EXAMINATION TYPE: IR stent intravascular non coronary DATE OF EXAM: 10/16/2019 COMPARISON: CTA abdominal aorta 11/14/2018 HISTORY: Abdominal aortic aneurysm TECHNIQUE: Fluoroscopy. FINDINGS: Fluoroscopic guidance was provided during procedure for performing physician. A total of 16.5 minutes of fluoroscopic time was utilized during the procedure and 1062 spot images was acquired . Please see operative report for additional details. IMPRESSION: As Above.
== END 2019-10-17 15:02 | disposition home health service (06) | DRG 269 ==
LOC: 2ORMAIN 06:04 → 2SICU 15:00
PROVIDERS: ADMIT Surgery; ATTEND Surgery
PROC: 30233R1 Transfusion of Nonautologous Platelets into Peripheral Vein, Percutaneous Approach (ICD-10-PCS; 2019-10-16)
PROC: B44HZZ3 Ultrasonography of Bilateral Lower Extremity Arteries, Intravascular (ICD-10-PCS; principal; 2019-10-16 07:30)
PROC: 04V03DZ Restriction of Abdominal Aorta with Intraluminal Device, Percutaneous Approach (ICD-10-PCS; principal; 2019-10-16 07:30)
DX: I71.4 Abdominal aortic aneurysm, without rupture (principal); I13.0 Hypertensive heart and chronic kidney disease with heart failure and stage 1 through stage 4 chronic kidney disease, or unspecified chronic kidney disease; I50.32 Chronic diastolic (congestive) heart failure; N18.3 Chronic kidney disease, stage 3 (moderate); I48.0 Paroxysmal atrial fibrillation; E66.01 Morbid (severe) obesity due to excess calories; J44.9 Chronic obstructive pulmonary disease, unspecified; K21.9 Gastro-esophageal reflux disease without esophagitis; K74.60 Unspecified cirrhosis of liver; D69.6 Thrombocytopenia, unspecified; Z98.890 Other specified postprocedural states; Z79.51 Long term (current) use of inhaled steroids; Z79.899 Other long term (current) drug therapy; Z85.828 Personal history of other malignant neoplasm of skin; Z86.79 Personal history of other diseases of the circulatory system; Z68.39 Body mass index [BMI] 39.0-39.9, adult; Z80.9 Family history of malignant neoplasm, unspecified; Z87.891 Personal history of nicotine dependence
CPT/HCPCS: 34705; 36430; 71045; 80048; 85025; 86850; 86900; 86901; 94640

== ENCOUNTER 2019-11-16 14:00 | Inpatient (IN) | payer MEDICARE, OTHER ==
[2019-11-16] MEDS ORDERED: IPRATROPIUM-ALBUTEROL 3 ML NEB INHALATION STA (14:33)
[2019-11-16] MEDS ORDERED: ASPIRIN 81 MG PO STA (14:33)
[2019-11-16] MEDS ORDERED: KETOROLAC 15 MG/ML 1 ML VIAL IVP STA (14:33)
[2019-11-16] MEDS ORDERED: NITROGLYCERIN OINT 1 INCH/GM PACKET TOPICAL STA (14:33)
--- NOTE | 2019-11-16 14:33 | ED ---
General Adult HPI - General Source: patient, family, RN notes reviewed, old records reviewed Mode of arrival: wheelchair Limitations: no limitations <Kalen Arreola - Last Filed: 11/16/19 15:00> <Giovany Myers - Last Filed: 11/16/19 16:57> - General Chief complaint: Chest Pain Stated complaint: Chest Pain Time Seen by Provider: 11/16/19 14:10 - History of Present Illness Initial comments: This is a 69-year-old male with past medical history significant for COPD and coronary artery disease as well as hepatitis C and high blood pressure. Patient also states she is history of congestive heart. Patient states about a week ago started having pain in his left wrist and now has progressed UP HIS WHOLE ARM AND IT IS PAINFUL TO TOUCH BUT HE IS ALSO EXPERIENCING SOME LEFT-SIDED CHEST PAIN SINCE YESTERDAY. PATIENT STATES SHE'S ALSO BEEN INCREASING SHORTNESS OF BREATH BUT NO DIAPHORETIC EPISODE NO RADIATION TO THE JAW OR BACK. PATIENT DENIES ANY NAUSEA. PATIENT DENIES ANY RECENT FEVER CHILLS OR COUGH. PATIENT DENIES ANY ABDOMINAL PAIN PATIENT DENIES NAUSEA VOMITING DIARRHEA PER PATIENT STATES HE RECENTLY HAD A AORTIC ABDOMINAL ANEURYSM REPAIR. PATIENT'S POST BEEN ELIQUIS BUT IS NOT TAKING IT. (Kalen Arreola) - Related Data Home Medications Medication Instructions Recorded Confirmed Budesonide-Formot 160-4.5 Mcg 2 puff INHALATION RT-BID 05/11/19 10/16/19 [Symbicort 160-4.5 Mcg Inhaler] Cholecalciferol [Vitamin D3 (25 1,000 unit PO DAILY 05/11/19 10/16/19 Mcg = 1000 Iu)] Ipratropium-Albuterol Nebulize 3 ml INHALATION RT-Q6H 05/11/19 10/16/19 [Duoneb 0.5 mg-3 mg/3 ml Soln] Albuterol Sulfate [Ventolin HFA] 1 - 2 puff INHALATION RT-Q6H PRN 08/31/19 10/16/19 Nitroglycerin Sl Tabs [Nitrostat] 0.4 mg PO Q5M PRN 08/31/19 10/15/19 Spironolactone [Aldactone] 50 mg PO DAILY 08/31/19 10/16/19 Torsemide [Demadex] 40 mg PO DAILY 08/31/19 10/16/19 carvediloL [Carvedilol] 25 mg PO BID 08/31/19 10/16/19 lisinopriL [Zestril] 5 mg PO HS 08/31/19 10/16/19 allopurinoL [Zyloprim] 300 mg PO HS 09/10/19 10/16/19 Allergies Allergy/AdvReac Type Severity Reaction Status Date / Time No Known Allergies Allergy Verified 10/15/19 08:53 Review of Systems ROS Other: All systems not noted in ROS Statement are negative. <Kalen Arreola - Last Filed: 11/16/19 15:00> ROS Other: All systems not noted in ROS Statement are negative. <Giovany Myers - Last Filed: 11/16/19 16:57> ROS Statement: Those systems with pertinent positive or pertinent negative responses have been documented in the HPI. Past Medical History Past Medical History: Heart Failure, COPD, GERD/Reflux, Hypertension, Liver Disease Additional Past Medical History / Comment(s): hepatitis C treated X 2, CIRRHOSIS OF LIVER, 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 History of Any Multi-Drug Resistant Organisms: None Reported Past Surgical History: Heart Catheterization, Hernia Repair, Orthopedic Surgery Additional Past Surgical History / Comment(s): HEART CATHX2, RIGHT shoulder surgery, UMBILICAL HERNIA REPAIR, Past Anesthesia/Blood Transfusion Reactions: Motion Sickness Past Psychological History: No Psychological Hx Reported Smoking Status: Current every day smoker - Past Family History Mother Family Medical History: Cancer <Kalen Arreola - Last Filed: 11/16/19 15:00> General Exam Limitations: no limitations <Kalen Arreola - Last Filed: 11/16/19 15:00> - General Exam Comments Initial Comments: GENERAL: Patient is well-developed and well-nourished. Patient is nontoxic and well- hydrated and is in mild distress. ENT: Neck is soft and supple. No significant lymphadenopathy is noted. Oropharynx is clear. Moist mucous membranes. Neck has full range of motion without eliciting any pain. EYES: The sclera were anicteric and conjunctiva were pink and moist. Extraocular movements were intact and pupils were equal round and reactive to light. Eyelids were unremarkable. PULMONARY: Unlabored respirations. Good breath sounds bilaterally. No audible rales rhonchi or wheezing was noted. CARDIOVASCULAR: There is a regular rate and rhythm without any murmurs gallops or rubs. ABDOMEN: Soft and nontender with normal bowel sounds. SKIN: Skin is clear with no lesions or rashes and otherwise unremarkable. NEUROLOGIC: Patient is alert and oriented x3. Cranial nerves II through XII are grossly intact. Motor and sensory are also intact. Normal speech, volume and content. Symmetrical smile. MUSCULOSKELETAL: Patient has some tenderness on the medial aspect of the wrist no redness no swelling. Patient has quite a bit of tenderness in the area of the tricep muscle on palpation and it is not there on the other arm. There is no redness of the arm no swelling of the arm LYMPHATICS: No significant lymphadenopathy is noted PSYCHIATRIC: Normal psychiatric evaluation. (Kalen Arreola) Course Vital Signs 11/16/19 11/16/19 11/16/19 14:07 15:15 16:03 Temperature 98.0 F Pulse Rate 69 62 61 Respiratory 20 12 16 Rate Blood Pressure 131/72 100/58 94/48 O2 Sat by Pulse 96 97 98 Oximetry Medical Decision Making <Kalen Arreola - Last Filed: 11/16/19 15:00> - Lab Data Result diagrams: 11/16/19 15:08 11/16/19 15:08 <Giovany Myers - Last Filed: 11/16/19 16:57> - Medical Decision Making EKG shows normal sinus rhythm at 64 bpm [place] interval 274 QRS is under QT intervals 422 QTC is 435 per patient's EKG shows no ST segment elevation or depression. Dr. Myers will be taking over the care of this patient at 3 PM (Kalen Arreola) Workup in the emergency department reveals chest x-ray negative for acute cardio pulmonary disease, ultrasound negative for left upper extremity DVT. He has white blood cell count 3.3, hemoglobin is 11.6 which is improved from prior. His creatinine is 2.61 which is slightly above his baseline creatinine. His initial troponin is negative. Given his risk factors he will be kept in observation for serial cardiac enzymes, telemetry, cardiology consultation. (Giovany Myers) - Lab Data Lab Results 11/16/19 11/16/19 11/16/19 Range/Units 15:08 15:08 15:08 WBC 3.3 L (3.8-10.6) k/uL RBC 3.11 L (4.30-5.90) m/uL Hgb 11.6 L (13.0-17.5) gm/dL Hct 34.1 L (39.0-53.0) % MCV 109.6 H (80.0-100.0) fL MCH 37.3 H (25.0-35.0) pg MCHC 34.0 (31.0-37.0) g/dL RDW 12.6 (11.5-15.5) % Plt Count 39 L (150-450) k/uL Neutrophils % 58 % Lymphocytes % 21 % Monocytes % 10 % Eosinophils % 9 % Basophils % 0 % Neutrophils # 1.9 (1.3-7.7) k/uL Lymphocytes # 0.7 L (1.0-4.8) k/uL Monocytes # 0.3 (0-1.0) k/uL Eosinophils # 0.3 (0-0.7) k/uL Basophils # 0.0 (0-0.2) k/uL Macrocytosis Marked A PT 10.8 (9.0-12.0) sec INR 1.1 (<1.2) APTT 24.9 (22.0-30.0) sec Sodium 137 (137-145) mmol/L Potassium 4.3 (3.5-5.1) mmol/L Chloride 106 (98-107) mmol/L Carbon Dioxide 26 (22-30) mmol/L Anion Gap 5 mmol/L BUN 56 H (9-20) mg/dL Creatinine 2.61 H (0.66-1.25) mg/dL Est GFR (CKD-EPI)AfAm 28 (>60 ml/min/1.73 sqM) Est GFR (CKD-EPI)NonAf 24 (>60 ml/min/1.73 sqM) Glucose 112 H (74-99) mg/dL Calcium 8.8 (8.4-10.2) mg/dL Magnesium 2.0 (1.6-2.3) mg/dL Total Bilirubin 0.9 (0.2-1.3) mg/dL AST 24 (17-59) U/L ALT 14 (4-49) U/L Alkaline Phosphatase 97 (38-126) U/L Troponin I (0.000-0.034) ng/mL Total Protein 6.3 (6.3-8.2) g/dL Albumin 3.3 L (3.5-5.0) g/dL 11/16/19 Range/Units 15:08 WBC (3.8-10.6) k/uL RBC (4.30-5.90) m/uL Hgb (13.0-17.5) gm/dL Hct (39.0-53.0) % MCV (80.0-100.0) fL MCH (25.0-35.0) pg MCHC (31.0-37.0) g/dL RDW (11.5-15.5) % Plt Count (150-450) k/uL Neutrophils % % Lymphocytes % % Monocytes % % Eosinophils % % Basophils % % Neutrophils # (1.3-7.7) k/uL Lymphocytes # (1.0-4.8) k/uL Monocytes # (0-1.0) k/uL Eosinophils # (0-0.7) k/uL Basophils # (0-0.2) k/uL Macrocytosis PT (9.0-12.0) sec INR (<1.2) APTT (22.0-30.0) sec Sodium (137-145) mmol/L Potassium (3.5-5.1) mmol/L Chloride (98-107) mmol/L Carbon Dioxide (22-30) mmol/L Anion Gap mmol/L BUN (9-20) mg/dL Creatinine (0.66-1.25) mg/dL Est GFR (CKD-EPI)AfAm (>60 ml/min/1.73 sqM) Est GFR (CKD-EPI)NonAf (>60 ml/min/1.73 sqM) Glucose (74-99) mg/dL Calcium (8.4-10.2) mg/dL Magnesium (1.6-2.3) mg/dL Total Bilirubin (0.2-1.3) mg/dL AST (17-59) U/L ALT (4-49) U/L Alkaline Phosphatase (38-126) U/L Troponin I <0.012 (0.000-0.034) ng/mL Total Protein (6.3-8.2) g/dL Albumin (3.5-5.0) g/dL Disposition <Kalen Arreola - Last Filed: 11/16/19 15:00> Is patient prescribed a controlled substance at d/c from ED?: No Decision to Admit Reason: Admit from EC Decision Date: 11/16/19 Decision Time: 16:57 <Giovany Myers - Last Filed: 11/16/19 16:57> Clinical Impression: Chest pain Disposition: ADMITTED IP TO THIS HOSP Condition: Fair Referrals: Aristides Mena DO [Primary Care Provider] - 1-2 days
[2019-11-16 15:26] LABS: Albumin 3.3 g/dL (3.5-5.0); Calcium 8.8 mg/dL (8.4-10.2); Potassium 4.3 mmol/L (3.5-5.1); Total Bilirubin 0.9 mg/dL (0.2-1.3); Total Protein 6.3 g/dL (6.3-8.2)
[2019-11-16 15:36] LABS: INR 1.1 (<1.2); Partial Thromboplastin Time 24.9 sec (22.0-30.0); Prothrombin Time 10.8 sec (9.0-12.0)
[2019-11-16 15:49] LABS: Basophils % (A) 0 %; Eosinophils # (A) 0.3 k/uL (0-0.7); Eosinophils % (A) 9 %; HCT 34.1 % (39.0-53.0); HGB 11.6 gm/dL (13.0-17.5); Lymphocytes # (A) 0.7 k/uL (1.0-4.8); Lymphocytes % (A) 21 %; MCH 37.3 pg (25.0-35.0); MCV 109.6 fL (80.0-100.0); Macrocytosis Marked; Mean Platelet Volume 10.5; Monocytes # (A) 0.3 k/uL (0-1.0); Monocytes % (A) 10 %; Neutrophils # (A) 1.9 k/uL (1.3-7.7); Neutrophils % (A) 58 %; RBC 3.11 m/uL (4.30-5.90); RDW 12.6 % (11.5-15.5); WBC 3.3 k/uL (3.8-10.6)
--- NOTE | 2019-11-16 15:53 | XR ---
EXAMINATION TYPE: XR chest 2V DATE OF EXAM: 11/16/2019 COMPARISON: Prior chest x-ray 02/24/2020 HISTORY: Chest pain and shortness of breath TECHNIQUE: Frontal and lateral views of the chest are obtained on 3 images. FINDINGS: There is no focal air space opacity, pleural effusion, or pneumothorax seen. The cardiac silhouette size is within normal limits. There is flattening the hemidiaphragms, there may be underl ander COPD. The osseous structures are intact. IMPRESSION: No acute cardiopulmonary process.
[2019-11-16 15:57] LABS: Platelet Count 39 k/uL (150-450)
--- NOTE | 2019-11-16 16:31 | US ---
EXAMINATION TYPE: US venous doppler duplex UE LT DATE OF EXAM: 11/16/2019 COMPARISON: NONE CLINICAL HISTORY: Left upper arm pain . pain left arm SIDE PERFORMED: left Left Arm: technical limitations due to patient's body habitus. no evidence of DVT as visualized IMPRESSION: No evidence for DVT at this time.
[2019-11-16] MEDS ORDERED: NALOXONE 0.4 MG/ML 1 ML VIAL IV PRN (16:52)
[2019-11-16] MEDS ORDERED: NITROGLYCERIN SL TABS 0.4 MG TAB SUBLINGUAL PRN (20:30)
[2019-11-16] MEDS ORDERED: ONDANSETRON 4 MG/2 ML VIAL IVP PRN (20:40)
[2019-11-16] MEDS ORDERED: IPRATROPIUM-ALBUTEROL 3 ML NEB INHALATION PRN (20:43)
[2019-11-17] MEDS ORDERED: IPRATROPIUM-ALBUTEROL 3 ML NEB INHALATION SCH (02:00)
[2019-11-17 06:22] LABS: Basophils % (A) 0 %; Eosinophils # (A) 0.2 k/uL (0-0.7); Eosinophils % (A) 8 %; HCT 30.5 % (39.0-53.0); Lymphocytes # (A) 0.8 k/uL (1.0-4.8); Lymphocytes % (A) 30 %; MCH 35.9 pg (25.0-35.0); MCHC 32.7 g/dL (31.0-37.0); MCV 109.7 fL (80.0-100.0); Mean Platelet Volume 10.1; Monocytes # (A) 0.2 k/uL (0-1.0); Monocytes % (A) 9 %; Neutrophils # (A) 1.3 k/uL (1.3-7.7); Neutrophils % (A) 52 %; RBC 2.78 m/uL (4.30-5.90); RDW 12.7 % (11.5-15.5); WBC 2.5 k/uL (3.8-10.6)
[2019-11-17 06:36] LABS: Calcium 8.3 mg/dL (8.4-10.2); Potassium 4.3 mmol/L (3.5-5.1)
[2019-11-17 06:45] LABS: Macrocytosis Marked; Platelet Count 33 k/uL (150-450)
[2019-11-17] MEDS: IPRATROPIUM-ALBUTEROL 3 ML NEB INHALATION SCH ×3 (07:26→20:16)
--- NOTE | 2019-11-17 12:13 | P.CRDCN ---
History of Present Illness Consult date: 11/17/19 Consult reason: chest pain History of present illness: The patient is a 69-year-old male who presented to the hospital with new onset of left arm discomfort. He states it started with him and his wrist last week, and gradually worked its way up his arm into his left chest wall. He also reports chronic shortness of breath, however it has been slightly worse over the previous week. He recently underwent aortic aneurysm percutaneous endovascular repair with Dr. Reynoso. He states he was recently started on Eliquis for atrial fibrillation, unfortunately he developed hives to the medication and has subsequently discontinued. DIAGNOSTICS: EKG shows sinus mechanism with occasional PACs and left anterior fascicular block Laboratory data: WBC 3.3, hemoglobin 11.6, platelet 39, sodium 137, potassium 4.3, BUN 56, creatinine 2.61, AST 24, ALT 14, ALP 97, troponins negative 2 Left upper extremity ultrasound was negative for DVT Chest X-ray shows no acute cardiopulmonary process PAST MEDICAL HISTORY: COPD, abdominal aneurysm status post endovascular repair in October 2019, hypertension, obesity, hepatitis, chronic kidney disease, paroxysmal atrial fibrillation REVIEW OF SYSTEMS: No fever or chills. No cough or expectoration. No diaph oresis. Patient denies headache, dizziness, blurred vision, double vision. Patient denies any stomach discomfort. No nausea, vomiting. No hematochezia. No hematemesis. Denies any black stools or blood in his stools. Denies dysuria or hematuria. No muscle weakness or numbness. Positive for left arm and shoulder discomfort with moving. PHYSICAL EXAMINATION: This is a 69-year-old male in no apparent distress at the time of my examination. HEENT: Head is atraumatic, normocephalic. Pupils are equal, round. Sclerae anicteric. Conjunctivae are clear. Mucous membranes of the mouth are moist. Neck is supple. There is no jugular venous distention. No carotid bruit is heard. CHEST EXAMINATION: Lungs are rhonchorous. No chest wall tenderness is noted on palpation or with deep breathing. HEART EXAMINATION: Heart regular rate and rhythm. S1, S2 heard. No murmurs, gallops or rub. ABDOMEN: Soft, nontender. Bowel sounds are heard. No organomegaly noted. EXTREMITIES: Absent pedal pulses with mild right lower extremity peripheral edema and no calf tenderness noted. Currently wearing compression socks. Limited range of motion with left upper extremity. NEUROLOGIC EXAMINATION: Patient is awake, alert and oriented x3. FINAL ASSESSMENT AND PLAN: #1 left arm discomfort, likely orthopedic #2 history of abdominal aortic aneurysm, status post percutaneous repair #3 hypertension, recently well controlled #4 obesity #5 chronic kidney disease #6 paroxysmal atrial fibrillation, not currently on anticoagulation #7 history of thrombocytopenia #8 history of hepatitis C #9 history of nonischemic cardiomyopathy; recent echocardiogram in office shows LV function of 50% PLAN: We will start the patient on Pradaxa 75 mg twice daily for stroke prevention. Recommend follow-up regarding left arm/shoulder discomfort. Patient reports history of rotator cuff injury. Patient will follow-up in the office for further workup if necessary. Past Medical History Past Medical History: Heart Failure, COPD, GERD/Reflux, Hypertension, Liver Disease Additional Past Medical History / Comment(s): hepatitis C treated X 2, CIRRHOSIS OF LIVER, 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 History of Any Multi-Drug Resistant Organisms: None Reported Past Surgical History: Heart Catheterization, Hernia Repair, Orthopedic Surgery Additional Past Surgical History / Comment(s): HEART CATHX2, RIGHT shoulder surgery, UMBILICAL HERNIA REPAIR, Past Anesthesia/Blood Transfusion Reactions: Motion Sickness Past Psychological History: No Psychological Hx Reported Additional Psychological History / Comment(s): depression comes and goes Smoking Status: Former smoker Past Alcohol Use History: None Reported Additional Past Alcohol Use History / Comment(s): pt stopped drinking 10 years ago,quit smoking approx 2003,started smoking at age 13,2ppd Past Drug Use History: Marijuana Additional Drug Use History / Comment(s): states he used CBD drops more freqently than marijuana but still smokes as well. - Past Family History Mother Family Medical History: Cancer Medications and Allergies Home Medications Medication Instructions Recorded Confirmed Type Budesonide-Formot 160-4.5 Mcg 2 puff INHALATION RT-BID 05/11/19 11/16/19 History [Symbicort 160-4.5 Mcg Inhaler] Cholecalciferol [Vitamin D3 (25 1,000 unit PO DAILY 05/11/19 11/16/19 History Mcg = 1000 Iu)] Ipratropium-Albuterol Nebulize 3 ml INHALATION RT-Q6H PRN 05/11/19 11/16/19 History [Duoneb 0.5 mg-3 mg/3 ml Soln] Albuterol Sulfate [Ventolin HFA] 1 - 2 puff INHALATION RT-Q6H PRN 08/31/19 History Nitroglycerin Sl Tabs [Nitrostat] 0.4 mg PO Q5M PRN 08/31/19 11/16/19 History Spironolactone [Aldactone] 50 mg PO DAILY 08/31/19 11/16/19 History Torsemide [Demadex] 40 mg PO DAILY 08/31/19 11/16/19 History carvediloL [Carvedilol] 25 mg PO BID 08/31/19 11/16/19 History lisinopriL [Zestril] 5 mg PO HS 08/31/19 11/16/19 History Allergies Allergy/AdvReac Type Severity Reaction Status Date / Time apixaban [From Eliquis] AdvReac Rash/Hives Verified 11/16/19 17:13 Physical Exam Vitals: Vital Signs Temp Pulse Pulse Resp BP BP Pulse Ox 11/17/19 09:00 97.6 F 63 16 90/45 95 11/17/19 07:35 64 11/17/19 07:27 66 11/17/19 04:00 97.5 F L 65 17 92/51 98 11/16/19 19:47 98.1 F 62 17 99/62 95 11/16/19 18:37 61 11/16/19 18:21 97.6 F 11/16/19 18:18 63 16 88/54 96 11/16/19 16:03 61 16 94/48 98 11/16/19 15:15 62 12 100/58 97 11/16/19 14:07 98.0 F 69 20 131/72 96 Intake and Output 11/16/19 11/17/19 11/17/19 22:59 06:59 14:59 Intake Total 500 Balance 500 Intake: Oral 500 Other: Voiding Method Toilet Toilet Toilet # Voids 2 1 Weight 136.078 kg Results 11/17/19 06:10 11/17/19 06:10 Cardiac Enzymes 11/16/19 11/16/19 11/16/19 Range/Units 15:08 15:08 18:22 AST 24 (17-59) U/L Troponin I <0.012 <0.012 (0.000-0.034) ng/mL Coagulation 11/16/19 Range/Units 15:08 PT 10.8 (9.0-12.0) sec APTT 24.9 (22.0-30.0) sec CBC 11/16/19 11/17/19 Range/Units 15:08 06:10 WBC 3.3 L 2.5 L (3.8-10.6) k/uL RBC 3.11 L 2.78 L (4.30-5.90) m/uL Hgb 11.6 L 10.0 L D (13.0-17.5) gm/dL Hct 34.1 L 30.5 L (39.0-53.0) % Plt Count 39 L 33 L (150-450) k/uL Comprehensive Metabolic Panel 11/16/19 11/17/19 Range/Units 15:08 06:10 Sodium 137 137 (137-145) mmol/L Potassium 4.3 4.3 (3.5-5.1) mmol/L Chloride 106 108 H (98-107) mmol/L Carbon Dioxide 26 25 (22-30) mmol/L BUN 56 H 60 H (9-20) mg/dL Creatinine 2.61 H 2.78 H (0.66-1.25) mg/dL Glucose 112 H 105 H (74-99) mg/dL Calcium 8.8 8.3 L (8.4-10.2) mg/dL AST 24 (17-59) U/L ALT 14 (4-49) U/L Alkaline Phosphatase 97 (38-126) U/L Total Protein 6.3 (6.3-8.2) g/dL Albumin 3.3 L (3.5-5.0) g/dL Current Medications Generic Name Dose Route Start Last Admin Trade Name Freq PRN Reason Stop Dose Admin Acetaminophen 650 mg 11/16/19 20:40 Acetaminophen Tab 325 Mg Tab PO Q6HR PRN Fever and/ or Pain Albuterol/Ipratropium 3 ml 11/17/19 08:00 11/17/19 07:26 Ipratropium-Albuterol 3 Ml Neb INHALATION 3 ml RT-TID CODI Administration Albuterol/Ipratropium 3 ml 11/16/19 20:43 Ipratropium-Albuterol 3 Ml Neb INHALATION RT-Q2H PRN Shortness Of Breath Or Wheezing Naloxone HCl 0.2 mg 11/16/19 16:52 Naloxone 0.4 Mg/Ml 1 Ml Vial IV Q2M PRN Opioid Reversal Nitroglycerin 0.4 mg 11/16/19 20:30 Nitroglycerin Sl Tabs 0.4 Mg Tab SUBLINGUAL Q5M PRN Chest Pain Ondansetron HCl 4 mg 11/16/19 20:40 Ondansetron 4 Mg/2 Ml Vial IVP Q6HR PRN Nausea And Vomiting Intake and Output 11/16/19 11/17/19 11/17/19 22:59 06:59 14:59 Intake Total 500 Balance 500 Intake: Oral 500 Other: Voiding Method Toilet Toilet Toilet # Voids 2 1 Weight 136.078 kg 11/17/19 06:10 11/17/19 06:10
--- NOTE | 2019-11-17 14:39 | P.HPIM ---
History of Present Illness H&P Date: 11/17/19 Chief Complaint: Left wrist pain that progressed to the left arm Mr. Lim is a 69-year-old male with a past medical history of congestive heart failure, COPD, GERD, hypertension, hepatitis C treated, cirrhosis of the liver coming in with a chief complaint of left wrist pain that has progressed to his left arm in the past 1 week. Patient states that he started to have left wrist pain and one week back and slowly progress to his left shoulder. He states that he is not able to easily lift his left shoulder above his left arm. He was also complaining that the pain was going from the arm to the left side of the chest. He denies having any dizziness diaphoresis or syncope associated with this left-sided chest pain. Patient denies having any fevers chills or rig ors. No swelling or pain in the joints of the body. He recently underwent aortic aneurysm percutaneous endovascular repair by Dr. Reynoso. He also mentioned that he was started Eliquis for atrial fibrillation, unfortunately he developed hives to the medication and subsequently discontinued. He is not taking his anticoagulation. Patient had workup in the emergency department revealing chest x-ray that is negative for acute cardiopulmonary process, ultrasound of the left upper extremity is negative for DVT. He had 2 troponins less than 0.012. EKG showing normal sinus rhythm with low voltage. Patient's blood pressure has been in the lower side and he is saturating at 96% on 2 L of oxygen. Review of Systems REVIEW OF SYSTEMS: PSYCH: No history of anxiety or depression NEURO: Denies having any facial droop, speech abnormalities or weakness in his extremities VASCULAR: He has mild lower extremity edema HEMATOLOGIC: No history of easy bleeding and bruising . No recent infections . RESPIRATORY: Patient denies having any cough or difficulty in breathing. IMMUNE: No infections INTEGUMENT: no rashes OPHTHALMOLOGIC: No blurry vision and no eye discharge : No dysuria or hematuria CARDIAC: Patient denies having any PND or orthopnea. Left-sided chest dis comfort as HPI MUSCULOSKELETAL : Left wrist pain and left shoulder pain GI: No abdominal pain, Nausea or vomiting. No constipation or diarrhea. Past Medical History Past Medical History: Heart Failure, COPD, GERD/Reflux, Hypertension, Liver Disease Additional Past Medical History / Comment(s): hepatitis C treated X 2, CIRRHOSIS OF LIVER, 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 History of Any Multi-Drug Resistant Organisms: None Reported Past Surgical History: Heart Catheterization, Hernia Repair, Orthopedic Surgery Additional Past Surgical History / Comment(s): HEART CATHX2, RIGHT shoulder surgery, UMBILICAL HERNIA REPAIR, Past Anesthesia/Blood Transfusion Reactions: Motion Sickness Past Psychological History: No Psychological Hx Reported Additional Psychological History / Comment(s): depression comes and goes Smoking Status: Former smoker Past Alcohol Use History: None Reported Additional Past Alcohol Use History / Comment(s): pt stopped drinking 10 years ago,quit smoking approx 2003,started smoking at age 13,2ppd Past Drug Use History: Marijuana Additional Drug Use History / Comment(s): states he used CBD drops more freqently than marijuana but still smokes as well. - Past Family History Mother Family Medical History: Cancer Medications and Allergies Home Medications Medication Instructions Recorded Confirmed Type Budesonide-Formot 160-4.5 Mcg 2 puff INHALATION RT-BID 05/11/19 11/16/19 History [Symbicort 160-4.5 Mcg Inhaler] Cholecalciferol [Vitamin D3 (25 1,000 unit PO DAILY 05/11/19 11/16/19 History Mcg = 1000 Iu)] Ipratropium-Albuterol Nebulize 3 ml INHALATION RT-Q6H PRN 05/11/19 11/16/19 History [Duoneb 0.5 mg-3 mg/3 ml Soln] Albuterol Sulfate [Ventolin HFA] 1 - 2 puff INHALATION RT-Q6H PRN 08/31/19 11/16/19 History Nitroglycerin Sl Tabs [Nitrostat] 0.4 mg PO Q5M PRN 08/31/19 11/16/19 History Spironolactone [Aldactone] 50 mg PO DAILY 08/31/19 11/16/19 History Torsemide [Demadex] 40 mg PO DAILY 08/31/19 11/16/19 History carvediloL [Carvedilol] 25 mg PO BID 08/31/19 11/16/19 History lisinopriL [Zestril] 5 mg PO HS 08/31/19 11/16/19 History Allergies Allergy/AdvReac Type Severity Reaction Status Date / Time apixaban [From Eliquis] AdvReac Rash/Hives Verified 11/16/19 17:13 Physical Exam Vitals: Vital Signs Temp Pulse Pulse Resp BP BP Pulse Ox 11/17/19 13:53 74 11/17/19 13:44 70 11/17/19 09:00 97.6 F 63 16 90/45 95 11/17/19 07:35 64 11/17/19 07:27 66 11/17/19 04:00 97.5 F L 65 17 92/51 98 11/16/19 19:47 98.1 F 62 17 99/62 95 11/16/19 18:37 61 11/16/19 18:21 97.6 F 11/16/19 18:18 63 16 88/54 96 11/16/19 16:03 61 16 94/48 98 11/16/19 15:15 62 12 100/58 97 Intake and Output 11/16/19 11/17/19 11/17/19 22:59 06:59 14:59 Intake Total 500 Balance 500 Intake: Oral 500 Other: Voiding Method Toilet Toilet Toilet # Voids 2 1 Weight 136.078 kg PHYSICAL EXAM GEN. APPEARANCE: alert, in no apparent distress HEAD EXAM: atraumatic, normocephalic, normal inspection EYE EXAM: No pallor. No icterus. ENT EXAM: normal exam, mucous membranes moist NECK EXAM: No JVD. RESPIRATORY EXAM: Bilateral rhonchi in all lung navarro. Decreased breath sounds bilaterally. CARDIOVASCULAR EXAM: S1 and S2 heard. No additional sounds. GI/ABDOMINAL EXAM: Abdomen is soft, nontender nondistended. Bowel sounds are po sitive. EXTREMITIES EXAM: Mild pitting edema NEUROLOGICAL EXAM: alert, oriented X3, no focal neurological deficits Left shoulder exam- positive for tenderness over the anterior shoulder. Range of motion- painful adduction and abduction. He could not lift his arm above the shoulder due to pain. PSYCHIATRIC EXAM: normal affect, normal mood SKIN EXAM: warm, dry, intact, normal color. Absent: rash Results CBC & Chem 7: 11/18/19 12:47 11/18/19 12:47 Labs: Abnormal Lab Results - Last 24 Hours (Table) 11/16/19 11/16/19 11/17/19 Range/Units 15:08 15:08 06:10 WBC 3.3 L 2.5 L (3.8-10.6) k/uL RBC 3.11 L 2.78 L (4.30-5.90) m/uL Hgb 11.6 L 10.0 L D (13.0-17.5) gm/dL Hct 34.1 L 30.5 L (39.0-53.0) % MCV 109.6 H 109.7 H (80.0-100.0) fL MCH 37.3 H 35.9 H (25.0-35.0) pg Plt Count 39 L 33 L (150-450) k/uL Lymphocytes # 0.7 L 0.8 L (1.0-4.8) k/uL Macrocytosis Marked A Marked A Chloride (98-107) mmol/L BUN 56 H (9-20) mg/dL Creatinine 2.61 H (0.66-1.25) mg/dL Glucose 112 H (74-99) mg/dL Calcium (8.4-10.2) mg/dL Albumin 3.3 L (3.5-5.0) g/dL 11/17/19 Range/Units 06:10 WBC (3.8-10.6) k/uL RBC (4.30-5.90) m/uL Hgb (13.0-17.5) gm/dL Hct (39.0-53.0) % MCV (80.0-100.0) fL MCH (25.0-35.0) pg Plt Count (150-450) k/uL Lymphocytes # (1.0-4.8) k/uL Macrocytosis Chloride 108 H (98-107) mmol/L BUN 60 H (9-20) mg/dL Creatinine 2.78 H (0.66-1.25) mg/dL Glucose 105 H (74-99) mg/dL Calcium 8.3 L (8.4-10.2) mg/dL Albumin (3.5-5.0) g/dL Thrombosis Risk Factor Assmnt - Choose All That Apply Each Factor Represents 1 point: Abnormal pulmonary function (COPD), Acute NC Each Risk Factor Represents 2 Points: Age 61-74 years Other congenital or acquired thrombophilia - If yes, enter type in comment: No Thrombosis Risk Factor Assessment Total Risk Factor Score: 4 Thrombosis Risk Factor Assessment Level: Moderate Risk Assessment and Plan Assessment: ASSESSMENT Left arm pain- could be due to rotator cuff injury Reason history of abdominal aortic aneurysm percutaneous repair Hypertension LEONARDO on CKD stage IV Obesity with BMI of 39.6 Macrocytic anemia Chronic thrombocytopenia Pancytopenia Nonischemic cardiomyopathy with ejection fraction 50% on last echo History of hepatitis C Paroxysmal atrial fibrillation PLAN: Will get an x-ray of the left shoulder. Patient's blood pressure is running on the lower side and he is requiring 2 L of oxygen to maintain his sats are 95, will check d-dimer levels and also order an echocardiogram. On reviewing his labs patient's white count, hemoglobin with macrocytosis and low platelet count, we will consult hematology to see if he needs any further workup for this pancytopenia. Cardiology on board and following the patient. The treatment plan was discussed in detail with the patient and his at bedside. Further recommendations to follow depending on the progress of the patient.
[2019-11-17] MEDS: DABIGATRAN 75 MG CAP PO SCH ×2 (16:01→21:18)
[2019-11-17] MEDS: SPIRONOLACTONE 25 MG TAB PO SCH (16:01)
--- NOTE | 2019-11-17 19:12 | NM ---
EXAMINATION TYPE: NM pul vent and perfuse DATE OF EXAM: 11/17/2019 COMPARISON: NONE HISTORY: TECHNIQUE: Utilizing inhalation of 64.3 mCi Tc 99m DTPA aerosol and intravenous injection of 5.3 mCi of Tc 99m MAA, ventilation and perfusion images are acquired post injection in multiple projections. FINDINGS: There are small matching subsegmental ventilation and perfusion defects in both upper lobes. There is no segmental type defect. There is no mismatch. Chest x-ray today shows no pulmonary consolidation.. IMPRESSION: Bilateral matching upper lobe defect consistent with airway disease. There is a low probability of pu lmonary embolism.
[2019-11-17] MEDS: SYMBICORT 160-4.5 MCG INHALER INHALATION SCH (20:16)
[2019-11-17] MEDS: lisinopriL 5 MG TAB PO SCH (21:25)
[2019-11-17] MEDS: carvediloL 12.5 MG TAB PO SCH (21:25)
[2019-11-18] MEDS: SYMBICORT 160-4.5 MCG INHALER INHALATION SCH ×2 (08:01→21:26)
[2019-11-18] MEDS: IPRATROPIUM-ALBUTEROL 3 ML NEB INHALATION SCH ×3 (08:01→21:26)
[2019-11-18] MEDS: carvediloL 12.5 MG TAB PO SCH ×2 (08:47→17:13)
[2019-11-18] MEDS: SPIRONOLACTONE 25 MG TAB PO SCH (08:49)
[2019-11-18] MEDS: DABIGATRAN 75 MG CAP PO SCH ×2 (08:49→20:32)
[2019-11-18] MEDS: CHOLECALCIFEROL 1,000 UNIT TAB PO SCH (08:49)
[2019-11-18] MEDS: TORSEMIDE 20 MG TAB PO SCH (08:49)
--- NOTE | 2019-11-18 10:54 | P.PN ---
Subjective Progress Note Date: 11/18/19 Patient interviewed and examined resting comfortably in bed. He states he is feeling well this morning and denies any new or worsening symptoms. He denies any chest pain or chest pressure. Occasionally his left shoulder and arm will be uncomfortable, however they improved with repositioning. He denies any shortness of breath, palpitations, dizziness, or vertigo. He states he has been up walking around his room. GENERAL: Well-appearing, well-nourished and in no acute distress. NECK: Supple without JVD or thyromegaly. LUNGS: Breath sounds are rhonchorous auscultation bilaterally. Interest with coughing. Respiration equal and unlabored. No wheezes, rales or rhonchi. HEART: Regular rate and rhythm without murmurs, rubs or gallops. S1 and S2 heard. EXTREMITIES: Limited left per extremity range of motion. No lower extremity edema. Wearing compression socks. No clubbing or cyanosis. Pedal pulses absent. Telemetry readings overnight show sinus rhythm with PACs. Vital signs: 95/59, heart rate 61, respiratory rate 18, temperature 97.9 Fahrenheit, 96% on room air Laboratory data: Elevated d-dimer 4.57 VQ scan shows low probability of pulmonary embolism Impression: #1 left arm discomfort, likely orthopedic, and proved #2 history of abdominal aortic aneurysm, status post percutaneous repair #3 hypertension, currently hypotensive, reduce carvedilol to 12-1/2mg twice a day #4 obesity #5 chronic kidney disease #6 paroxysmal atrial fibrillation, started on Pradaxa #7 history of thrombocytopenia #8 history of hepatitis C #9 history of nonischemic cardiomyopathy Plan: Reduce carvedilol to 12-1/2 mg twice a day, after holding a.m. dose of medication. Follow-up in office in 1-2 weeks for blood pressure reevaluation. Thank you kindly for the consultation. No further recommendations at this time. Objective - Vital Signs Vital signs: Vital Signs Temp 97.9 F 11/18/19 09:00 Pulse 60 11/18/19 10:43 Resp 18 11/18/19 09:00 BP 95/59 11/18/19 09:00 Pulse Ox 96 11/18/19 09:00 Intake & Output 11/17/19 11/18/19 11/18/19 18:59 06:59 18:59 Intake Total 1150 Balance 1150 Intake: Oral 1150 Other: Voiding Method Toilet Toilet Toilet # Voids 3 2 2 - Labs CBC & Chem 7: 11/17/19 06:10 11/17/19 06:10 Labs: Abnormal Lab Results - Last 24 Hours (Table) 11/17/19 Range/Units 16:12 D-Dimer 4.57 H (<0.60) mg/L FEU
[2019-11-18 13:12] LABS: INR 1.2 (<1.2); Partial Thromboplastin Time 35.5 sec (22.0-30.0); Prothrombin Time 11.8 sec (9.0-12.0)
[2019-11-18 13:17] LABS: Reticulocyte % 2.1 % (0.5-2.0)
[2019-11-18 13:18] LABS: Basophils % (A) 0 %; Eosinophils # (A) 0.3 k/uL (0-0.7); Eosinophils % (A) 9 %; HCT 34.8 % (39.0-53.0); HGB 11.6 gm/dL (13.0-17.5); Lymphocytes # (A) 0.8 k/uL (1.0-4.8); Lymphocytes % (A) 19 %; MCH 36.4 pg (25.0-35.0); MCHC 33.2 g/dL (31.0-37.0); MCV 109.5 fL (80.0-100.0); Macrocytosis Moderate; Monocytes # (A) 0.3 k/uL (0-1.0); Monocytes % (A) 9 %; Neutrophils # (A) 2.4 k/uL (1.3-7.7); Neutrophils % (A) 61 %; RBC 3.18 m/uL (4.30-5.90); RDW 12.4 % (11.5-15.5); WBC 3.9 k/uL (3.8-10.6)
[2019-11-18 13:19] LABS: Platelet Count 46 k/uL (150-450)
--- NOTE | 2019-11-18 13:34 | P.CONS ---
History of Present Illness - Reason for Consult Consult date: 11/18/19 bicytopenia Requesting physician: Elke Connell - Chief Complaint Left arm and wrist pain - History of Present Illness Mr. Lim is a 69-year-old male who recently underwent endovascular aoritic repair on 10/16/19. Apparently developing a rash after starting eliquis so did not restart any anticoagulation and self discontinued. He also has a known past medical history of congestive heart failure, COPD, GERD, hypertension, hepatitis C treated, cirrhosis of the liver. He presented to emergency with complaints of wrist pain that has migrated up his left arm. He has weakness and decreased ROM in this left upper extremity. Pain was migrating to chest. Review of Systems All systems: negative (hpi) Past Medical History Past Medical History: Heart Failure, COPD, GERD/Reflux, Hypertension, Liver Disease Additional Past Medical History / Comment(s): hepatitis C treated X 2, CIRRHOSIS OF LIVER, 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 History of Any Multi-Drug Resistant Organisms: None Reported Past Surgical History: Heart Catheterization, Hernia Repair, Orthopedic Surgery Additional Past Surgical History / Comment(s): HEART CATHX2, RIGHT shoulder surgery, UMBILICAL HERNIA REPAIR, Past Anesthesia/Blood Transfusion Reactions: Motion Sickness Past Psychological History: No Psychological Hx Reported Additional Psychological History / Comment(s): depression comes and goes Smoking Status: Former smoker Past Alcohol Use History: None Reported Additional Past Alcohol Use History / Comment(s): pt stopped drinking 10 years ago,quit smoking approx 2003,started smoking at age 13,2ppd Past Drug Use History: Marijuana Additional Drug Use History / Comment(s): states he used CBD drops more freqently than marijuana but still smokes as well. - Past Family History Mother Family Medical History: Cancer Medications and Allergies Home Medications Medication Instructions Recorded Confirmed Type Budesonide-Formot 160-4.5 Mcg 2 puff INHALATION RT-BID 05/11/19 11/16/19 History [Symbicort 160-4.5 Mcg Inhaler] Cholecalciferol [Vitamin D3 (25 1,000 unit PO DAILY 05/11/19 11/16/19 History Mcg = 1000 Iu)] Ipratropium-Albuterol Nebulize 3 ml INHALATION RT-Q6H PRN 05/11/19 11/16/19 History [Duoneb 0.5 mg-3 mg/3 ml Soln] Albuterol Sulfate [Ventolin HFA] 1 - 2 puff INHALATION RT-Q6H PRN 08/31/19 11/16/19 History Nitroglycerin Sl Tabs [Nitrostat] 0.4 mg PO Q5M PRN 08/31/19 11/16/19 History Spironolactone [Aldactone] 50 mg PO DAILY 08/31/19 11/16/19 History Torsemide [Demadex] 40 mg PO DAILY 08/31/19 11/16/19 History carvediloL [Carvedilol] 25 mg PO BID 08/31/19 11/16/19 History lisinopriL [Zestril] 5 mg PO HS 08/31/19 11/16/19 History Allergies Allergy/AdvReac Type Severity Reaction Status Date / Time apixaban [From Eliquis] AdvReac Rash/Hives Verified 11/16/19 17:13 Physical Exam Vitals: Vital Signs Temp Pulse Pulse Resp BP Pulse Ox 11/18/19 10:50 68 11/18/19 10:43 60 11/18/19 09:00 97.9 F 61 18 95/59 96 11/18/19 03:45 98.2 F 73 19 124/75 97 11/17/19 21:00 98.0 F 69 17 95/57 95 11/17/19 15:00 97.9 F 63 16 128/66 97 11/17/19 13:53 74 11/17/19 13:44 70 Intake and Output 11/17/19 11/18/19 11/18/19 22:59 06:59 14:59 Intake Total 650 Balance 650 Intake: Oral 650 Other: Voiding Method Toilet Toilet Toilet # Voids 1 2 2 - Constitutional General appearance: cooperative, no acute distress - EENT Eyes: EOMI, PERRLA ENT: NA/AT, normal oropharynx - Neck Neck: normal ROM - Respiratory Respiratory: bilateral: diminished, rhonchi - Cardiovascular Compression stockings Rhythm: regular Heart sounds: normal: S1, S2 - Gastrointestinal General gastrointestinal: hepatomegaly, normal bowel sounds, soft - Integumentary Integumentary: pale - Neurologic Neurologic: CNII-XII intact - Musculoskeletal Musculoskeletal: generalized weakness, left sided weakness - Psychiatric Psychiatric: A&O x's 3, appropriate affect Results CBC & Chem 7: 11/18/19 12:47 11/17/19 06:10 Labs: Abnormal Lab Results - Last 24 Hours (Table) 11/17/19 Range/Units 16:12 D-Dimer 4.57 H (<0.60) mg/L FEU Comments: VQ Scan Chest Xray Assessment and Plan (1) Pancytopenia Current Visit: Yes Status: Acute Code(s): D61.818 - OTHER PANCYTOPENIA SNOMED Code(s): 325502968 (2) Liver disease Current Visit: Yes Status: Acute Code(s): K76.9 - LIVER DISEASE, UNSPECIFIED SNOMED Code(s): 111264634 Plan: Assessment and Recommendations: Pancytopenia: - In review of his trended labs from May of 2016 it appears he has had chronic low blood counts likely secondary to underlying chronic liver disease Leukopenia: Baseline over the past few years 2.5-3.5, platelets at baseline appear 45K, and hemoglobin more recently (December 2018) baseline 11-12. - A full pancytopenia work up has been ordered to assess for other etiologies as well - Nutritional labs for area of supplementation ordered Left Wrist/Arm Pain: - Evaluated by other specialties felt to be musculoskeletal. - Unable to perform CT with contrast due to renal function Acute Renal Insufficiency: - This has been worsening over the past year. - Baseline Creat in August of this year 1.5, the past few months he has remained greater than 2 and slowing worsening. PLan: - Will await full work-up of pancytopenia - If not already following with nephrology would recommend - Transfusion support for hemoglobin less than 7, platelets less than 10K or if signs of bleeding plt less than 50K - HOLD anticoaulations if platelets are less than 50K, if AC therapy is mandatory per vascular or cardiology will need to transfuse to keep platelets greater than 50K. Thank you for allowing us to participate in the care of this patient.
[2019-11-18 13:44] LABS: Calcium 9.1 mg/dL (8.4-10.2); Potassium 4.6 mmol/L (3.5-5.1)
--- NOTE | 2019-11-18 13:51 | P.PN ---
Subjective Progress Note Date: 11/18/19 Principal diagnosis: Pancytopenia Mr. Lim is a 69-year-old male with a past medical history of congestive heart failure, COPD, GERD, hypertension, hepatitis C treated, cirrhosis of the liver coming in with a chief complaint of left wrist pain that has progressed to his left arm in the past 1 week. Patient states that he started to have left wrist pain and one week back and slowly progress to his left shoulder. He states that he is not able to easily lift his left shoulder above his left arm. He was also complaining that the pain was going from the arm to the left side of the chest. He denies having any dizziness diaphoresis or syncope associated with this left-sided chest pain. Patient denies having any fevers chills or rigors. No swelling or pain in the joints of the body. He recently underwent aortic aneurysm percutaneous endovascular repair by Dr. Reynoso. He also mentioned that he was started Eliquis for atrial fibrillation, unfortunately he developed hives to the medication and subsequently discontinued. He is not taking his anticoagulation. Patient had workup in the emergency department revealing chest x-ray that is negative for acute cardiopulmonary process, ultrasound of the left upper extremity is negative for DVT. He had 2 troponins less than 0.012. EKG showing normal sinus rhythm with low voltage. Patient's blood pressure has been in the lower side and he is saturating at 96% on 2 L of oxygen. On 11/18/2019- patient's d-dimer was checked yesterday and it was high at 4.57, as the patient had elevated creatinine of 2.78, CT angiogram could not be done. So in relation perfusion scan was obtained that was showing low probability of PE. As the patient had pancytopenia, of hematology was consulted. This morning patient is sitting comfortably in bed appears to be no acute distress. Patient denies having any chest pain or palpitations. He still complains of left shoulder pain. He denies having any cough or difficulty in breathing. No abdominal pain nausea vomiting or diarrhea. Patient denies having any blood in stool or bleeding from anywhere. Patient denies having any worsening of swelling of his lower extremities. Active Medications Acetaminophen (Acetaminophen Tab 325 Mg Tab) 650 mg PO Q6HR PRN PRN Reason: Fever and/ or Pain Albuterol/Ipratropium (Ipratropium-Albuterol 3 Ml Neb) 3 ml INHALATION RT-TID [facility] Last Admin: 11/18/19 10:41 Dose: 3 ml Documented by: Albuterol/Ipratropium (Ipratropium-Albuterol 3 Ml Neb) 3 ml INHALATION RT-Q2H PRN PRN Reason: Shortness Of Breath Or Wheezing Budesonide/Formoterol Fumarate (Symbicort 160-4.5 Mcg Inhaler) 2 puff INHALATION RT-BID [facility] Last Admin: 11/18/19 08:01 Dose: 2 puff Documented by: Carvedilol (Carvedilol 12.5 Mg Tab) 12.5 mg PO BID-W/MEALS [facility] Cholecalciferol (Cholecalciferol 1,000 Unit Tab) 1,000 unit PO DAILY [facility] Last Admin: 11/18/19 08:49 Dose: 1,000 unit Documented by: Dabigatran (Dabigatran 75 Mg Cap) 75 mg PO BID [facility] Last Admin: 11/18/19 08:49 Dose: 75 mg Documented by: Lisinopril (Lisinopril 5 Mg Tab) 5 mg PO HS [facility] Last Admin: 11/17/19 21:25 Dose: Not Given Documented by: Naloxone HCl (Naloxone 0.4 Mg/Ml 1 Ml Vial) 0.2 mg IV Q2M PRN PRN Reason: Opioid Reversal Nitroglycerin (Nitroglycerin Sl Tabs 0.4 Mg Tab) 0.4 mg SUBLINGUAL Q5M PRN PRN Reason: Chest Pain Ondansetron HCl (Ondansetron 4 Mg/2 Ml Vial) 4 mg IVP Q6HR PRN PRN Reason: Nausea And Vomiting Spironolactone (Spironolactone 25 Mg Tab) 50 mg PO DAILY [facility] Last Admin: 11/18/19 08:49 Dose: 50 mg Documented by: Torsemide (Torsemide 20 Mg Tab) 40 mg PO DAILY [facility] Last Admin: 11/18/19 08:49 Dose: 40 mg Documented by: Objective - Vital Signs Vital signs: Vital Signs Temp 98.2 F 11/18/19 12:55 Pulse 67 11/18/19 12:55 Resp 18 11/18/19 12:55 BP 106/67 11/18/19 12:55 Pulse Ox 95 11/18/19 12:55 Intake & Output 11/17/19 11/18/19 11/18/19 18:59 06:59 18:59 Intake Total 1150 Balance 1150 Intake: Oral 1150 Other: Voiding Method Toilet Toilet Toilet # Voids 3 2 2 - Exam PHYSICAL EXAM GEN. APPEARANCE: alert, in no apparent distress HEENT: No pallor. No icterus. No JVD. RESPIRATORY EXAM: Bilateral rhonchi in all lung navarro. Decreased breath sounds bilaterally. CARDIOVASCULAR EXAM: S1 and S2 heard. No additional sounds. GI/ABDOMINAL EXAM: Abdomen is soft, nontender nondistended. Bowel sounds are positive. EXTREMITIES EXAM: Mild pitting edema NEUROLOGICAL EXAM: alert, oriented X3, no focal neurological deficits Left shoulder exam- positive for tenderness over the anterior shoulder. Range of motion- painful adduction and abduction. He could not lift his arm above the shoulder due to pain. PSYCHIATRIC EXAM: normal affect, normal mood SKIN EXAM: No rash - Labs CBC & Chem 7: 11/18/19 12:47 11/18/19 12:47 Labs: Abnormal Lab Results - Last 24 Hours (Table) 11/17/19 11/18/19 11/18/19 Range/Units 16:12 12:47 12:47 RBC 3.18 L (4.30-5.90) m/uL Hgb 11.6 L (13.0-17.5) gm/dL Hct 34.8 L (39.0-53.0) % MCV 109.5 H (80.0-100.0) fL MCH 36.4 H (25.0-35.0) pg Plt Count 46 L (150-450) k/uL Lymphocytes # 0.8 L (1.0-4.8) k/uL Retic Count 2.1 H (0.5-2.0) % INR (<1.2) APTT (22.0-30.0) sec D-Dimer 4.57 H (<0.60) mg/L FEU 11/18/19 Range/Units 12:47 RBC (4.30-5.90) m/uL Hgb (13.0-17.5) gm/dL Hct (39.0-53.0) % MCV (80.0-100.0) fL MCH (25.0-35.0) pg Plt Count (150-450) k/uL Lymphocytes # (1.0-4.8) k/uL Retic Count (0.5-2.0) % INR 1.2 H (<1.2) APTT 35.5 H (22.0-30.0) sec D-Dimer (<0.60) mg/L FEU Assessment and Plan Assessment: ASSESSMENT Left arm pain- could be due to rotator cuff injury Recent history of abdominal aortic aneurysm percutaneous repair Hypertension LEONARDO on CKD stage IV Obesity with BMI of 39.6 Macrocytic anemia Chronic thrombocytopenia Pancytopenia Nonischemic cardiomyopathy with ejection fraction 50% on last echo History of hepatitis C Paroxysmal atrial fibrillation PLAN: Will get an x-ray of the left shoulder. VQ scan showing low probability for PE. Echocardiogram pending. On reviewing his labs patient's white count, hemoglobin with macrocytosis and low platelet count, hematology ordered workup for this pancytopenia. Cardiology on board and following the patient. The treatment plan was discussed in detail with the patient at bedside today. Patient was hoping to be discharged today, I discussed with him in detail that his blood counts are low and needs further workup. Further recommendations to follow depending on the progress of the patient.
--- NOTE | 2019-11-18 15:01 | XR ---
EXAMINATION TYPE: XR shoulder complete LT DATE OF EXAM: 11/18/2019 COMPARISON: NONE HISTORY: Shoulder pain TECHNIQUE: 4 views FINDINGS: I see no fracture nor dislocation. Joint spaces appear normal. Soft tissues appear normal. IMPRESSION: Negative left shoulder exam.
[2019-11-18 16:50] LABS: % Iron Saturation 23.73 (15.00-50.00); Protein, Total 6.4 g/dL (6.2-8.2)
[2019-11-18 17:10] LABS: Ferritin 491.8 ng/mL (22.0-322.0)
[2019-11-18] MEDS: lisinopriL 5 MG TAB PO SCH (20:32)
[2019-11-19 05:52] LABS: Basophils % (A) 1 %; Eosinophils # (A) 0.2 k/uL (0-0.7); Eosinophils % (A) 7 %; HCT 33.4 % (39.0-53.0); HGB 11.1 gm/dL (13.0-17.5); Lymphocytes # (A) 0.9 k/uL (1.0-4.8); Lymphocytes % (A) 25 %; MCH 36.1 pg (25.0-35.0); MCHC 33.2 g/dL (31.0-37.0); MCV 108.7 fL (80.0-100.0); Macrocytosis Moderate; Mean Platelet Volume 10.8; Monocytes # (A) 0.3 k/uL (0-1.0); Monocytes % (A) 10 %; Neutrophils # (A) 1.9 k/uL (1.3-7.7); Neutrophils % (A) 55 %; RBC 3.07 m/uL (4.30-5.90); RDW 12.6 % (11.5-15.5); WBC 3.5 k/uL (3.8-10.6)
[2019-11-19 05:58] LABS: Platelet Count 40 k/uL (150-450)
[2019-11-19 06:06] LABS: Albumin 3.1 g/dL (3.5-5.0); Calcium 8.8 mg/dL (8.4-10.2); Potassium 4.4 mmol/L (3.5-5.1); Total Bilirubin 0.9 mg/dL (0.2-1.3); Total Protein 6.2 g/dL (6.3-8.2)
[2019-11-19] MEDS: IPRATROPIUM-ALBUTEROL 3 ML NEB INHALATION SCH ×3 (08:37→19:34)
[2019-11-19] MEDS: SYMBICORT 160-4.5 MCG INHALER INHALATION SCH ×2 (08:38→19:34)
[2019-11-19 08:49] LABS: Free Kappa Lt Chain Qnt, Serum 8.24 mg/dL (0.33-1.94)
[2019-11-19] MEDS: carvediloL 12.5 MG TAB PO SCH ×2 (09:01→17:51)
[2019-11-19] MEDS: DABIGATRAN 75 MG CAP PO SCH ×2 (09:02→20:33)
[2019-11-19] MEDS: TORSEMIDE 20 MG TAB PO SCH (09:03)
[2019-11-19] MEDS: SPIRONOLACTONE 25 MG TAB PO SCH (09:03)
[2019-11-19] MEDS: CHOLECALCIFEROL 1,000 UNIT TAB PO SCH (09:04)
--- NOTE | 2019-11-19 12:32 | ECHOF ---
Referral Reason:cpn MEASUREMENTS -------- HEIGHT: 185.4 cm WEIGHT: 137.0 kg BP: RVIDd: 4.3 cm (< 3.3) IVSd: 1.5 cm (0.6 - 1.1) LVIDd: 4.9 cm (3.9 - 5.3) LVPWd: 1.8 cm (0.6 - 1.1) IVSs: 1.9 cm LVIDs: 3.4 cm LVPWs: 2.2 cm LAESV Index (A-L): 22.03 ml/m Ao Diam: 4.0 cm (2.0 - 3.7) AV Cusp: 2.3 cm (1.5 - 2.6) MV EXCURSION: 21.622 mm (> 18.000) MV EF SLOPE: 91 mm/s (70 - 150) EPSS: 1.2 cm RAP: 5.00 mmHg RVSP: 39.59 mmHg FINDINGS -------- Atrial fibrillation. This was a technically difficult study with suboptimal views. The left ventricular size is normal. There is moderate concentric left ventricular hypertrophy. O verall left ventricular systolic function is low-normal with, an EF between 50 - 55 %. The right ventricle is moderate to severely enlarged. Normal LA size by volume 22+/-6 ml/m2. The right atrium was not well visualized. 5.0mg of Lumason was utilized for enhancement of images Interatrial and interventricular septum intact. The aortic valve was not well visualized. There is no evidence of aortic regurgitation. There is no evidence of aortic stenosis. The mitral valve was not well visualized. No mitral regurgitation. Mild tricuspid regurgitation present. There is mild pulmonary hypertension. The right ventricular systolic pressure, as measured by Doppler, is 39.59mmHg. The pulmonic valve was not well visualized. There is no pulmonic regurgitation present. The aortic root size is normal. IVC Not well visulized. There is no pericardial effusion. CONCLUSIONS -------- 1. There is moderate concentric left ventricular hypertrophy. 2. Overall left ventricular systolic function is low-normal with, an EF between 50 - 55 %. 3. The right ventricle is moderate to severely enlarged. 4. Normal LA size by volume 22+/-6 ml/m2. 5. The aortic valve was not well visualized. 6. Mild tricuspid regurgitation present. 7. There is mild pulmonary hypertension. 8. There is no pericardial effusion. TRAIN GATEMAN: Lillian King RDCS
[2019-11-19 13:22] LABS: Gamma Globulin 1.31 g/dL (0.70-1.50)
[2019-11-19 17:00] LABS: Appearance,Urine Clear (Clear); Bilirubin,Urine Negative (Negative); Blood,Urine Trace (Negative); Color,Urine Light Yellow; Glucose,Urine (UA) Negative (Negative); Hyaline Casts,Urine 14 /lpf (0-2); Ketones,Urine Negative (Negative); Leukocyte Esterase,Urine Large (Negative); Mucus,Urine Rare /hpf; Nitrite,Urine Negative (Negative); Protein,Urine Negative (Negative); RBC,Urine 3 /hpf (0-5); Specific Gravity,Urine 1.007 (1.001-1.035); Urobilinogen,Urine <2.0 mg/dL (<2.0); WBC,Urine 24 /hpf (0-5)
[2019-11-19 17:16] LABS: LDH 545 U/L (313-618)
--- NOTE | 2019-11-19 18:50 | CONS ---
CONSULTATION REASON FOR CONSULT: Renal failure. HISTORY OF PRESENT ILLNESS: The patient is a 69-year-old male who was admitted to the hospital on 11/16/2019 with complaints of left wrist pain which progressed up into the left arm. The patient has a history of hepatitis C, liver cirrhosis, and follows with GI as outpatient. He also has a history of COPD, CHF. He recently underwent intervention for aortic aneurysm by Dr. Reynoso. The patient denies any previous history of kidney diseases. The patient is noted to have a serum creatinine of 2.6 on admission. It increased to 2.7 and it is down to 2.1 today. Review of previous labs show serum creatinine in April to be around 1.5 mg/dL which increased to about 1.82 in October of 2019. The patient denies use of any nonsteroidal anti-inflammatory agents prior to admission. He is maintained on MONIKA inhibitors and diuretics. No history of fevers or chills prior to admission. No nausea, vomiting or diarrhea, although patient admitted to decreased oral intake. Blood pressure has been low with systolic in the 80s. PAST MEDICAL HISTORY: Significant for CKD and previous episode of acute kidney injury. Patient does not follow with Nephrology. COPD, gastroesophageal reflux disease, hypertension, chronic liver disease, and hepatitis C. PAST SURGICAL HISTORY: Cardiac catheterization, right shoulder surgery, umbilical hernia repair. SOCIAL HISTORY: Patient is a former smoker. No history alcohol abuse. He does have a history of marijuana use. MEDICATIONS: Medications prior to admission included Zestril, carvedilol, Demadex, Aldactone, Nitrostat, vitamin D3, Symbicort. ALLERGIES: INCLUDE ELIQUIS, WHICH CAUSES RASH AND HIVES. EXAMINATION: Patient is comfortable, awake. He is not in any acute distress. Blood pressure was 80/53, heart rate 68 per minute. He is afebrile. Examination of the heart S1, S2. Examination of the lungs, bilateral breath sounds are heard. Decreased breath sounds at bases. ABDOMEN: Soft, nontender, obese. Exam of lower extremities shows chronic skin changes. No significant edema noted. FLOOR INSPECTOR exam grossly intact. LAB: Show sodium of 139, potassium 4.4, chloride 108, CO2 is 25, BUN 36, serum creatinine 2.1, hemoglobin 11.1 g/dL. ASSESSMENT: 1. Acute kidney injury, mostly associated with hypotension/hypoperfusion in the setting of use of MONIKA inhibitors. Possible element of acute tubular necrosis from contrast nephropathy in October of 2019 after percutaneous endovascular aortic repair. He is currently voiding. The MONIKA inhibitors have definitely contributed to the acute kidney injury. Agree with discontinuation of Zestril. The patient will be given a fluid bolus. I will repeat a chest x-ray in a.m. Clinically patient does not appear to be significantly volume overloaded. 2. Chronic kidney disease with previous creatinine about 1.4-1.5 in April of 2019, most recently staying at about 1.8 NKF stage III most likely secondary to nephrosclerosis. 3. Thrombocytopenia, chronic. 4. Abdominal aortic aneurysm, status post recent percutaneous endovascular repair. 5. History of hepatitis C. 6. Paroxysmal atrial fibrillation with controlled ventricular response. 7. Left arm pain currently improved. PLAN: Maintain patient off MONIKA inhibitors. Repeat chest x-ray in a.m. Hold diuretics for now and if renal function is not further improved tomorrow, I will add IV fluids. The patient needs follow up as outpatient for CKD. His medications should have been adjusted prior to the procedure in October. MMODL / IJN: [id number] /
[2019-11-19] MEDS ORDERED: MAGNESIUM OXIDE 400 MG TAB PO STA (21:36)
--- NOTE | 2019-11-19 23:08 | P.PN ---
Progress Note - Text Progress Note Date: 11/19/19 Presenting complaint: Left arm pain Interval history: Patient presented with left wrist pain. Patient recently had a AAA with Dr. Reynoso with percutaneous endovascular aortic repair. Patient found to have pancytopenia. Being worked up by hematology. Today-laying in bed. Comfortable. No new issues. Review of systems: Was done for constitutional, cardiovascular, GI, pulmonary. relevant finding as above Active Medications Acetaminophen (Acetaminophen Tab 325 Mg Tab) 650 mg PO Q6HR PRN PRN Reason: Fever and/ or Pain Albuterol/Ipratropium (Ipratropium-Albuterol 3 Ml Neb) 3 ml INHALATION RT-TID [facility] Last Admin: 11/19/19 19:34 Dose: Not Given Documented by: Albuterol/Ipratropium (Ipratropium-Albuterol 3 Ml Neb) 3 ml INHALATION RT-Q2H PRN PRN Reason: Shortness Of Breath Or Wheezing Budesonide/Formoterol Fumarate (Symbicort 160-4.5 Mcg Inhaler) 2 puff INHALATION RT-BID [facility] Last Admin: 11/19/19 19:34 Dose: Not Given Documented by: Carvedilol (Carvedilol 12.5 Mg Tab) 12.5 mg PO BID-W/MEALS [facility] Last Admin: 11/19/19 17:51 Dose: 12.5 mg Documented by: Cholecalciferol (Cholecalciferol 1,000 Unit Tab) 1,000 unit PO DAILY [facility] Last Admin: 11/19/19 09:04 Dose: 1,000 unit Documented by: Dabigatran (Dabigatran 75 Mg Cap) 75 mg PO BID [facility] Last Admin: 11/19/19 20:33 Dose: 75 mg Documented by: Naloxone HCl (Naloxone 0.4 Mg/Ml 1 Ml Vial) 0.2 mg IV Q2M PRN PRN Reason: Opioid Reversal Nitroglycerin (Nitroglycerin Sl Tabs 0.4 Mg Tab) 0.4 mg SUBLINGUAL Q5M PRN PRN Reason: Chest Pain Ondansetron HCl (Ondansetron 4 Mg/2 Ml Vial) 4 mg IVP Q6HR PRN PRN Reason: Nausea And Vomiting Spironolactone (Spironolactone 25 Mg Tab) 50 mg PO DAILY [facility] Last Admin: 11/19/19 09:03 Dose: 25 mg Documented by: On examination: VITAL SIGNS: 98.1, 68, 16, 80/53, 95% room air GENERAL APPEARANCE: BMI 39.8, laying in bed, awake. HEENT: Normal external appearance of nose and ear. Oral cavity normal EYES: Pupils equal. Conjunctiva normal. NECK: JVD not raised. Mass not palpable. RESPIRATORY: Respiratory effort normal. Lungs clear to auscultation. CARDIOVASCULAR: First and second sounds normal. No edema. ABDOMEN: Soft. Liver and spleen not palpable. No tenderness. No mass palpable. PSYCHIATRY: Answering questions INVESTIGATIONS, reviewed in the clinical context: White count 3.5 hemoglobin 11.1 platelets 40 potassium 4.4 bun 36 creatinine 2.10 Assessment: -New onset hypotension. Antihypertensive been cut back. Including diuretics.- Uncontrolled -Acute kidney injury injury possibly ATN from use of dana inhibitors and hypoperfusion. -Chronic kidney disease likely stage III from nephrosclerosis -COPD -Obesity BMI 39.8 -Chronic gout -Compensated cirrhosis secondary to hepatitis C -Pancytopenia likely due to cirrhosis, workup in place by hematology -GERD -Essential hypertension -Chronic congestive heart failure from diastolic dysfunction EF 55-60% -Abdominal aortic aneurysm endovascular repair status post -Left arm pain improved Plan: Patient's blood pressure running in the low side. Will DC the Zestril. Patient's dose of Coreg held this morning.. Doses already been cut back from the home dose of 25 mg twice a day. We'll decrease the Coreg further to 6.25 twice a day. Diuretics to be cut back. Consult nephrology.
[2019-11-20 02:14] LABS: Rheumatoid Factor, Qnt 10 IU/mL (0-15)
[2019-11-20] MEDS: SYMBICORT 160-4.5 MCG INHALER INHALATION SCH ×2 (07:19→20:17)
[2019-11-20] MEDS: IPRATROPIUM-ALBUTEROL 3 ML NEB INHALATION SCH ×3 (07:19→20:16)
--- NOTE | 2019-11-20 08:18 | US ---
EXAMINATION TYPE: US abdomen complete DATE OF EXAM: 11/20/2019 COMPARISON: None CLINICAL HISTORY: 69-year-old male with chest pain, assess liver and spleen and kidneys. TECHNIQUE: Multiple sonographic images of the abdomen are obtained. FINDINGS: EXAM MEASUREMENTS: Liver Length: 13.7 cm Gallbladder Wall: 0.3 cm CBD: 0.6 cm Spleen: 17.9 cm Right Kidney: 9.3 x 5.2 x 5.5 cm Left Kidney: 10.8 x 5.8 x 4.8 cm Java Websphere Developer notes: History of AAA repair. Technically difficult study due to large patient body habit us and extensive midline bowel gas. Pancreas: Suboptimal visualization of the pancreatic tail due to shadowing gas. Visualized head and body show no gross value. Liver: Several images show subtle contour nodularity. No focal lesion seen. Gallbladder: No stones seen Evidence for sonographic Goodwin's sign: No CBD: wnl Spleen: enlarged at 17.9 cm Kidneys: No hydronephrosis. Upper IVC: wnl Abd Aorta: limited visualization due to midline bowel gas and large patient body habitus. IMPRESSION: 1. Some images suggest subtle contour nodularity of the liver. Correlate for the possibility of under lying cirrhosis. 2. Splenomegaly at 17.9 cm. 3. No gallstones. No hydronephrosis.
[2019-11-20] MEDS: carvediloL 6.25 MG TAB PO SCH ×3 (08:54→17:27)
[2019-11-20] MEDS: DABIGATRAN 75 MG CAP PO SCH ×2 (09:57→20:35)
[2019-11-20] MEDS: CHOLECALCIFEROL 1,000 UNIT TAB PO SCH (09:57)
[2019-11-20] MEDS ORDERED: SODIUM CHLORIDE 0.9% 1,000 ML IV SCH ×2 (10:00→18:00)
[2019-11-20] MEDS: SPIRONOLACTONE 25 MG TAB PO SCH (10:18)
[2019-11-20 10:58] LABS: African American GFR (CKD) 30.5 (60.0-200.0); Anion Gap 9.9 mmol/L (4.00-12.00); BUN/Creat Ratio 17.08 Ratio (12.00-20.00); Carbon Dioxide 24.1 mmol/L (21.6-31.8); Non-African American GFR(CKD) 26.3 (60.0-200.0); Potassium 4.4 mmol/L (3.5-5.5)
--- NOTE | 2019-11-20 12:06 | P.PN ---
Subjective Progress Note Date: 11/20/19 Principal diagnosis: pancytopenia Awaiting CBC today Abdominal ultrasound with mild splenomegaly Objective - Vital Signs Vital signs: Vital Signs Temp 98.0 F 11/20/19 05:00 Pulse 72 11/20/19 11:24 Resp 18 11/20/19 05:00 BP 77/44 11/20/19 08:57 Pulse Ox 94 L 11/20/19 05:00 Intake & Output 11/19/19 11/20/19 11/20/19 18:59 06:59 18:59 Intake Total 300 290 Output Total 1 Balance 299 290 Intake: Oral 300 290 Output: Urine 1 Other: Voiding Method Toilet Toilet # Voids 1 - Exam - Constitutional General appearance: cooperative, no acute distress - EENT Eyes: EOMI, PERRLA ENT: NA/AT, normal oropharynx - Neck Neck: normal ROM - Respiratory Respiratory: bilateral: diminished, rhonchi - Cardiovascular Compression stockings Rhythm: regular Heart sounds: normal: S1, S2 - Gastrointestinal General gastrointestinal: hepatomegaly, normal bowel sounds, soft - Integumentary Integumentary: pale - Neurologic Neurologic: CNII-XII intact - Musculoskeletal Musculoskeletal: generalized weakness, left sided weakness - Psychiatric Psychiatric: A&O x's 3, appropriate affect - Labs CBC & Chem 7: 11/20/19 04:06 11/20/19 04:06 Labs: Abnormal Lab Results - Last 24 Hours (Table) 11/18/19 11/19/19 11/19/19 Range/Units 12:47 05:20 Unknown ESR 29 H (0-15) mm/hr BUN (9.0-27.0) mg/dL Creatinine (0.6-1.5) mg/dL Est GFR (CKD-EPI)AfAm (60.0-200.0) Est GFR (CKD-EPI)NonAf (60.0-200.0) Glucose (70-110) mg/dL Albumin (PEP) 3.30 L (3.80-4.90) g/dL Urine Blood Trace H (Negative) Ur Leukocyte Esterase Large H (Negative) Urine WBC 24 H (0-5) /hpf Hyaline Casts 14 H (0-2) /lpf Urine Mucus Rare H (None) /hpf 11/20/19 Range/Units 04:06 ESR (0-15) mm/hr BUN 41.0 H (9.0-27.0) mg/dL Creatinine 2.4 H (0.6-1.5) mg/dL Est GFR (CKD-EPI)AfAm 30.5 L (60.0-200.0) Est GFR (CKD-EPI)NonAf 26.3 L (60.0-200.0) Glucose 157 H (70-110) mg/dL Albumin (PEP) (3.80-4.90) g/dL Urine Blood (Negative) Ur Leukocyte Esterase (Negative) Urine WBC (0-5) /hpf Hyaline Casts (0-2) /lpf Urine Mucus (None) /hpf Assessment and Plan (1) Pancytopenia Current Visit: Yes Status: Acute Code(s): D61.818 - OTHER PANCYTOPENIA SNOMED Code(s): 640780339 (2) Liver disease Current Visit: Yes Status: Acute Code(s): K76.9 - LIVER DISEASE, UNSPECIFIED SNOMED Code(s): 578354422 Plan: Assessment and Recommendations: Pancytopenia: - In review of his trended labs from May of 2016 it appears he has had chronic low blood counts likely secondary to underlying chronic liver disease Leukopenia: Baseline over the past few years 2.5-3.5, platelets at baseline appear 45K, and hemoglobin more recently (December 2018) baseline 11-12. - A full pancytopenia work up has been ordered to assess for other etiologies as well - Nutritional labs for area of supplementation ordered Left Wrist/Arm Pain: - Evaluated by other specialties felt to be musculoskeletal. - Unable to perform CT with contrast due to renal function Acute Renal Insufficiency: - This has been worsening over the past year. - Baseline Creat in August of this year 1.5, the past few months he has remained greater than 2 and slowing worsening. PLan: - Will await full work-up of pancytopenia - If not already following with nephrology would recommend - Transfusion support for hemoglobin less than 7, platelets less than 10K or if signs of bleeding plt less than 50K Patient on Pradaxa must keep Platelet count greater than 50K - Transfuse today If ocean transportation intermediary anticoagulation is needed will need senior care plan. Will discuss with team to determine length of recommended anticoagulation
[2019-11-20 12:46] LABS: Basophils % (A) 1 %; Eosinophils # (A) 0.4 k/uL (0-0.7); Eosinophils % (A) 9 %; HCT 35.9 % (39.0-53.0); HGB 11.6 gm/dL (13.0-17.5); Lymphocytes # (A) 1.2 k/uL (1.0-4.8); Lymphocytes % (A) 24 %; MCH 36.1 pg (25.0-35.0); MCHC 32.3 g/dL (31.0-37.0); MCV 111.7 fL (80.0-100.0); Macrocytosis Marked; Mean Platelet Volume 11.7; Monocytes # (A) 0.4 k/uL (0-1.0); Monocytes % (A) 8 %; Neutrophils # (A) 2.9 k/uL (1.3-7.7); Neutrophils % (A) 57 %; RBC 3.22 m/uL (4.30-5.90); RDW 12.6 % (11.5-15.5)
[2019-11-20 12:55] LABS: Platelet Count 45 k/uL (150-450)
[2019-11-20 14:04] LABS: Poikilocytosis (M) Present
--- NOTE | 2019-11-20 17:57 | P.PN ---
Progress Note - Text Progress Note Date: 11/20/19 Presenting complaint: Left arm pain Interval history: Patient presented with left wrist pain. Patient recently had a AAA with Dr. Reynoso with percutaneous endovascular aortic repair. Patient found to have pancytopenia. Being worked up by hematology. Today-blood pressure running low. Diuretics had been held. Tired. Review of systems: Was done for constitutional, cardiovascular, GI, pulmonary. relevant finding as above Active Medications Acetaminophen (Acetaminophen Tab 325 Mg Tab) 650 mg PO Q6HR PRN PRN Reason: Fever and/ or Pain Albuterol/Ipratropium (Ipratropium-Albuterol 3 Ml Neb) 3 ml INHALATION RT-TID [facility] Last Admin: 11/20/19 11:12 Dose: 3 ml Documented by: Albuterol/Ipratropium (Ipratropium-Albuterol 3 Ml Neb) 3 ml INHALATION RT-Q2H PRN PRN Reason: Shortness Of Breath Or Wheezing Budesonide/Formoterol Fumarate (Symbicort 160-4.5 Mcg Inhaler) 2 puff INHALATION RT-BID [facility] Last Admin: 11/20/19 07:19 Dose: Not Given Documented by: Carvedilol (Carvedilol 6.25 Mg Tab) 6.25 mg PO BID-W/MEALS [facility] Last Admin: 11/20/19 17:27 Dose: 6.25 mg Documented by: Cholecalciferol (Cholecalciferol 1,000 Unit Tab) 1,000 unit PO DAILY [facility] Last Admin: 11/20/19 09:57 Dose: 1,000 unit Documented by: Cyanocobalamin (Cyanocobalamin 500 Mcg Tab) 1,000 mcg PO DAILY [facility] Dabigatran (Dabigatran 75 Mg Cap) 75 mg PO BID [facility] Last Admin: 11/20/19 09:57 Dose: 75 mg Documented by: Sodium Chloride (Saline 0.9%) 1,000 mls @ 50 mls/hr IV .Q20H [facility] Stop: 11/21/19 00:59 Last Admin: 11/20/19 10:19 Dose: 50 mls/hr Documented by: Midodrine (Midodrine 5 Mg Tab) 5 mg PO AC-TID [facility] Naloxone HCl (Naloxone 0.4 Mg/Ml 1 Ml Vial) 0.2 mg IV Q2M PRN PRN Reason: Opioid Reversal Nitroglycerin (Nitroglycerin Sl Tabs 0.4 Mg Tab) 0.4 mg SUBLINGUAL Q5M PRN PRN Reason: Chest Pain Ondansetron HCl (Ondansetron 4 Mg/2 Ml Vial) 4 mg IVP Q6HR PRN PRN Reason: Nausea And Vomiting Spironolactone (Spironolactone 25 Mg Tab) 25 mg PO DAILY [facility] On examination: VITAL SIGNS: 98, 68, 18, 95/49, 94% room air GENERAL APPEARANCE: Laying in bed, tired. HEENT: Normal external appearance of nose and ear. Oral cavity normal EYES: Pupils equal. Conjunctiva normal. NECK: JVD not raised. Mass not palpable. RESPIRATORY: Respiratory effort normal. Lungs clear to auscultation. CARDIOVASCULAR: First and second sounds normal. Mild edema ABDOMEN: Soft. Liver and spleen not palpable. No tenderness. No mass palpable. PSYCHIATRY: Answering questions INVESTIGATIONS, reviewed in the clinical context: White count 5 hemoglobin 11.6 platelets 45 potassium 4.4 bun 41 and creatinine 2.4 Assessment: -New onset hypotension. Antihypertensive been cut back. Including diuretics.- Uncontrolled -Acute kidney injury injury possibly ATN from use of dana inhibitors and hypoperfusion.-Worsening -Chronic kidney disease likely stage III from nephrosclerosis -COPD -Obesity BMI 39.8 -Chronic gout -Compensated cirrhosis secondary to hepatitis C -Pancytopenia likely due to cirrhosis, workup in place by hematology -GERD -Essential hypertension -Chronic congestive heart failure from diastolic dysfunction EF 55-60% -Abdominal aortic aneurysm endovascular repair status post -Left arm pain improved Plan: We'll hold off diuretics. Cutback Coreg dose to 6.25 mg.. Start normal saline at 50 mL an hour. Discussed with patient.
--- NOTE | 2019-11-20 18:28 | PN ---
PROGRESS NOTE Patient is seen for followup for acute kidney injury. Patient's renal function has worsened. His creatinine is up to 2.4. Blood pressure had been on the lower side today with systolic of 95 mmHg. Patient is voiding on his own. He denies any significant chest pains or shortness of breath. On examination today, blood pressure 119/72, heart rate 72 per minute. He is afebrile. EXAMINATION OF THE HEART: S1 and S2. EXAMINATION OF LUNGS: Decreased breath sounds at bases. ABDOMEN: Soft, morbidly obese. Examination of lower extremities shows chronic skin changes. No significant edema noted. AMMUNITION SUPERVISOR exam is grossly intact. Labs show hemoglobin 11.6, sodium 137, potassium 4.4, chloride 103, BUN 41, serum creatinine 2.4 mg/dL. ASSESSMENT: Acute kidney injury, multifactorial, mostly acute tubular necrosis from contrast nephropathy as well as now secondary to hypotension and hypoperfusion. Renal function is worse today. Patient is maintained on IV fluids, which I will continue. I will also add midodrine, as blood pressure remains low. No nephrotoxic agents on board. Ultrasound does not show any evidence of hydronephrosis. UA is quite benign, with trace blood noted. No proteinuria seen. PLAN: Continue IV fluids. Add midodrine. Check postvoid residual. Repeat labs in a.m. Continue to avoid nephrotoxic agents. Avoid hypotension. MMODL / IJN: [id number] /
[2019-11-20] MEDS: SODIUM CHLORIDE 0.9% 1,000 ML IV SCH (20:36)
[2019-11-21 05:06] LABS: Basophils % (A) 0 %; Eosinophils # (A) 0.3 k/uL (0-0.7); Eosinophils % (A) 9 %; HCT 31.8 % (39.0-53.0); HGB 10.7 gm/dL (13.0-17.5); Lymphocytes # (A) 0.7 k/uL (1.0-4.8); Lymphocytes % (A) 22 %; MCH 35.9 pg (25.0-35.0); MCHC 33.6 g/dL (31.0-37.0); MCV 106.8 fL (80.0-100.0); Macrocytosis Moderate; Mean Platelet Volume 10.5; Monocytes # (A) 0.3 k/uL (0-1.0); Monocytes % (A) 9 %; Neutrophils # (A) 1.8 k/uL (1.3-7.7); Neutrophils % (A) 57 %; RBC 2.98 m/uL (4.30-5.90); RDW 12.3 % (11.5-15.5); WBC 3.2 k/uL (3.8-10.6)
[2019-11-21 05:12] LABS: Platelet Count 39 k/uL (150-450)
[2019-11-21] MEDS: CYANOCOBALAMIN 500 MCG TAB PO SCH (07:48)
[2019-11-21] MEDS: carvediloL 6.25 MG TAB PO SCH ×2 (07:48→17:54)
[2019-11-21] MEDS: CHOLECALCIFEROL 1,000 UNIT TAB PO SCH (07:48)
[2019-11-21] MEDS: DABIGATRAN 75 MG CAP PO SCH ×2 (07:48→22:14)
[2019-11-21] MEDS: MIDODRINE 5 MG TAB PO SCH ×3 (07:48→17:54)
[2019-11-21] MEDS ORDERED: SPIRONOLACTONE 25 MG TAB PO SCH (09:00)
[2019-11-21] MEDS: IPRATROPIUM-ALBUTEROL 3 ML NEB INHALATION SCH ×3 (09:37→20:17)
[2019-11-21] MEDS: SYMBICORT 160-4.5 MCG INHALER INHALATION SCH ×2 (09:38→20:17)
[2019-11-21 09:52] LABS: African American GFR (CKD) 38.1 (60.0-200.0); Anion Gap 6.7 mmol/L (4.00-12.00); BUN/Creat Ratio 19.5 Ratio (12.00-20.00); Calcium 8.7 mg/dL (8.7-10.3); Carbon Dioxide 21.3 mmol/L (21.6-31.8); Non-African American GFR(CKD) 32.8 (60.0-200.0); Potassium 4.3 mmol/L (3.5-5.5)
[2019-11-21 10:50] LABS: Basophils % (A) 0 %; Eosinophils # (A) 0.2 k/uL (0-0.7); Eosinophils % (A) 8 %; HCT 31.2 % (39.0-53.0); HGB 10.6 gm/dL (13.0-17.5); Lymphocytes # (A) 0.7 k/uL (1.0-4.8); Lymphocytes % (A) 22 %; MCH 36.5 pg (25.0-35.0); MCV 107.3 fL (80.0-100.0); Macrocytosis Moderate; Mean Platelet Volume 10.5; Monocytes # (A) 0.3 k/uL (0-1.0); Monocytes % (A) 10 %; Neutrophils # (A) 1.7 k/uL (1.3-7.7); Neutrophils % (A) 57 %; RBC 2.91 m/uL (4.30-5.90); RDW 12.2 % (11.5-15.5); WBC 2.9 k/uL (3.8-10.6)
[2019-11-21 11:03] LABS: Platelet Count 43 k/uL (150-450)
[2019-11-21] MEDS: SODIUM CHLORIDE 0.9% 1,000 ML IV SCH ×2 (15:40→17:56)
--- NOTE | 2019-11-21 17:26 | PN ---
PROGRESS NOTE Patient is seen for followup for acute kidney injury. His renal function is slightly improved with creatinine down to 2.0 from 2.4 mg/dL. He is resting comfortably. Denies any significant complaints except for pain in his left wrist and elbow. PHYSICAL EXAMINATION: Today blood pressure was 124/72, heart rate 89 per minute, he is afebrile. Examination of the lower extremities shows trace edema bilaterally. Abdomen is soft, obese, nontender. DEVELOPMENT EDUCATOR exam grossly intact. Patient is moving all 4 extremities. LABS: Show sodium 137, potassium 4.3, chloride 109, BUN 39, creatinine 2.0. ASSESSMENT: 1. Acute kidney injury ATN, slowly improving. Etiology was ischemic ATN as well as contrast nephropathy. Patient is a maintained on midodrine. He was on IV fluids which are now discontinued. 2. Aortic aneurysm, status post recent percutaneous endovascular repair. 3. History of hepatitis C. 4. CKD. Previous creatinine 1.4-1.5 mg/dL in April of 2019 although most recently staying about 1.8 stage 3 secondary to nephrosclerosis. 5. Morbid obesity. 6. Thrombocytopenia which is chronic. Platelet count currently at 43. PLAN: Continue off IV fluids. Continue with midodrine. Repeat labs in a.m. MMODL / IJN: [id number] /
--- NOTE | 2019-11-21 19:49 | P.PN ---
Subjective Progress Note Date: 11/21/19 Principal diagnosis: pancytopenia Patient seen and evaluated by Dr. Matthews today. Discussed usp plan for anticoagulation with history of Paroxysmal a fib and recent vascular procedure. If long-term anticoagulation is required per cardiology will need terminal carman plan for maintaing platelet count greater than 50K. Objective - Vital Signs Vital signs: Vital Signs Temp 98.7 F 11/21/19 19:02 Pulse 75 11/21/19 19:02 Resp 18 11/21/19 19:10 BP 95/65 11/21/19 19:02 Pulse Ox 95 11/21/19 19:02 Intake & Output 11/21/19 11/21/19 11/22/19 06:59 18:59 06:59 Intake Total 450 3103 Output Total 61 0 Balance 389 3103 Weight 134.9 kg Intake: Intake, IV Titration 450 1200 Amount Sodium Chloride 0.9% 1, 450 1200 000 ml @ 50 mls/hr IV . Q20H [facility] Rx#:[id number] Oral 1700 Blood Product 0 203 Platelet Irr Pheresis 3 0 203 Acda Unit [id number] Output: Urine 0 Post Void Residual 61 Other: Voiding Method Toilet Toilet # Voids 1 4 - Exam - Constitutional General appearance: cooperative, no acute distress - EENT Eyes: EOMI, PERRLA ENT: NA/AT, normal oropharynx - Neck Neck: normal ROM - Respiratory Respiratory: bilateral: diminished, rhonchi - Cardiovascular Compression stockings Rhythm: regular Heart sounds: normal: S1, S2 - Gastrointestinal General gastrointestinal: hepatomegaly, normal bowel sounds, soft - Integumentary Integumentary: pale - Neurologic Neurologic: CNII-XII intact - Musculoskeletal Musculoskeletal: generalized weakness, left sided weakness - Psychiatric Psychiatric: A&O x's 3, appropriate affect - Labs CBC & Chem 7: 11/21/19 10:31 11/21/19 04:36 Labs: Abnormal Lab Results - Last 24 Hours (Table) 11/21/19 11/21/19 11/21/19 Range/Units 04:36 04:36 10:31 WBC 3.2 L 2.9 L (3.8-10.6) k/uL RBC 2.98 L 2.91 L (4.30-5.90) m/uL Hgb 10.7 L 10.6 L (13.0-17.5) gm/dL Hct 31.8 L 31.2 L (39.0-53.0) % MCV 106.8 H 107.3 H (80.0-100.0) fL MCH 35.9 H 36.5 H (25.0-35.0) pg Plt Count 39 L 43 L (150-450) k/uL Lymphocytes # 0.7 L 0.7 L (1.0-4.8) k/uL Carbon Dioxide 21.3 L (21.6-31.8) mmol/L BUN 39.0 H (9.0-27.0) mg/dL Creatinine 2.0 H (0.6-1.5) mg/dL Est GFR (CKD-EPI)AfAm 38.1 L (60.0-200.0) Est GFR (CKD-EPI)NonAf 32.8 L (60.0-200.0) Glucose 119 H (70-110) mg/dL Assessment and Plan (1) Pancytopenia Current Visit: Yes Status: Acute Code(s): D61.818 - OTHER PANCYTOPENIA S NOMED Code(s): 581497887 (2) Liver disease Current Visit: Yes Status: Acute Code(s): K76.9 - LIVER DISEASE, UNSPECIFIED SNOMED Code(s): 132494701 Plan: Assessment and Recommendations: Pancytopenia: - In review of his trended labs from May of 2016 it appears he has had chronic low blood counts likely secondary to underlying chronic liver disease Leukopenia: Baseline over the past few years 2.5-3.5, platelets at baseline appear 45K, and hemoglobin more recently (December 2018) baseline 11-12. - A full pancytopenia work up has been ordered to assess for other etiologies as well - Nutritional labs for area of supplementation ordered Left Wrist/Arm Pain: - Evaluated by other specialties felt to be musculoskeletal. - Unable to perform CT with contrast due to renal function Acute Renal Insufficiency: - This has been worsening over the past year. - Baseline Creat in August of this year 1.5, the past few months he has remained greater than 2 and slowing worsening. Plan: - Transfusion support for hemoglobin less than 7, platelets less than 10K or if signs of bleeding plt less than 50K Patient on Pradaxa must keep Platelet count greater than 50K - Transfuse today If usp anticoagulation is needed will need terminal carman plan. - Will await cardiology recs regarding terminal carman anticoagulation, in the interim continue to transfuse to keep platelets greater than 50K. \ Physician Attest: I have completed the full history and physical and developed the above impression and plan, I agree with dictation, dictated as a scribe
--- NOTE | 2019-11-21 23:06 | P.PN ---
Progress Note - Text Progress Note Date: 11/21/19 Presenting complaint: Left arm pain Interval history: Patient presented with left wrist pain. Patient recently had a AAA with Dr. Reynoso with percutaneous endovascular aortic repair. Patient found to have pancytopenia. Being worked up by hematology.blood pressure been running low. Diuretics were held. Coreg does scaled back. Today-eating better bit tired. Blood pressure still running low side. Review of systems: Was done for constitutional, cardiovascular, GI, pulmonary. relevant finding as above Active Medications Acetaminophen (Acetaminophen Tab 325 Mg Tab) 650 mg PO Q6HR PRN PRN Reason: Fever and/ or Pain Albuterol/Ipratropium (Ipratropium-Albuterol 3 Ml Neb) 3 ml INHALATION RT-TID [facility] Last Admin: 11/21/19 20:17 Dose: 3 ml Documented by: Albuterol/Ipratropium (Ipratropium-Albuterol 3 Ml Neb) 3 ml INHALATION RT-Q2H PRN PRN Reason: Shortness Of Breath Or Wheezing Budesonide/Formoterol Fumarate (Symbicort 160-4.5 Mcg Inhaler) 2 puff INHALATION RT-BID [facility] Last Admin: 11/21/19 20:17 Dose: 2 puff Documented by: Carvedilol (Carvedilol 6.25 Mg Tab) 6.25 mg PO BID-W/MEALS [facility] Last Admin: 11/21/19 17:54 Dose: 6.25 mg Documented by: Cholecalciferol (Cholecalciferol 1,000 Unit Tab) 1,000 unit PO DAILY [facility] Last Admin: 11/21/19 07:48 Dose: 1,000 unit Documented by: Cyanocobalamin (Cyanocobalamin 500 Mcg Tab) 1,000 mcg PO DAILY [facility] Last Admin: 11/21/19 07:48 Dose: 1,000 mcg Documented by: Dabigatran (Dabigatran 75 Mg Cap) 75 mg PO BID [facility] Last Admin: 11/21/19 22:14 Dose: 75 mg Documented by: Midodrine (Midodrine 5 Mg Tab) 5 mg PO AC-TID [facility] Last Admin: 11/21/19 17:54 Dose: 5 mg Documented by: Naloxone HCl (Naloxone 0.4 Mg/Ml 1 Ml Vial) 0.2 mg IV Q2M PRN PRN Reason: Opioid Reversal Nitroglycerin (Nitroglycerin Sl Tabs 0.4 Mg Tab) 0.4 mg SUBLINGUAL Q5M PRN PRN Reason: Chest Pain Ondansetron HCl (Ondansetron 4 Mg/2 Ml Vial) 4 mg IVP Q6HR PRN PRN Reason: Nausea And Vomiting Spironolactone (Spironolactone 25 Mg Tab) 25 mg PO DAILY [facility] On examination: VITAL SIGNS: 98.7, 75, 18, 95/65, 95% room air GENERAL APPEARANCE: Laying in bed, tired. HEENT: Normal external appearance of nose and ear. Oral cavity normal EYES: Pupils equal. Conjunctiva normal. NECK: JVD not raised. Mass not palpable. RESPIRATORY: Respiratory effort normal. Lungs clear to auscultation. CARDIOVASCULAR: First and second sounds normal. Mild edema ABDOMEN: Soft. Liver and spleen not palpable. No tenderness. No mass palpable. PSYCHIATRY: Answering questions INVESTIGATIONS, reviewed in the clinical context: White count 5 hemoglobin 11.6 platelets 45 potassium 4.4 bun 41 and creatinine 2.4 Assessment: -New onset hypotension. Antihypertensive been cut back. Including diuretics.- Uncontrolled -Acute kidney injury injury possibly ATN from use of dana inhibitors and hypoperfusion.-Worsening -Chronic kidney disease likely stage III from nephrosclerosis -COPD -Obesity BMI 39.8 -Chronic gout -Compensated cirrhosis secondary to hepatitis C -Pancytopenia likely due to cirrhosis, workup in place by hematology -GERD -Essential hypertension -Chronic congestive heart failure from diastolic dysfunction EF 55-60% -Abdominal aortic aneurysm endovascular repair status post -Left arm pain improved Plan: patient remains on normal saline. Receive Coreg. held morning dose of Aldactone again today.possibly resume tomorrow. Will DC the IV fluids this evening. Encouraged patient to be out of bed.
[2019-11-22 07:02] LABS: Basophils % (A) 1 %; Eosinophils # (A) 0.2 k/uL (0-0.7); Eosinophils % (A) 7 %; HCT 30.3 % (39.0-53.0); Lymphocytes # (A) 0.7 k/uL (1.0-4.8); Lymphocytes % (A) 27 %; MCH 35.8 pg (25.0-35.0); MCHC 33.2 g/dL (31.0-37.0); MCV 107.9 fL (80.0-100.0); Macrocytosis Moderate; Mean Platelet Volume 10.3; Monocytes # (A) 0.2 k/uL (0-1.0); Monocytes % (A) 8 %; Neutrophils # (A) 1.4 k/uL (1.3-7.7); Neutrophils % (A) 54 %; RDW 12.3 % (11.5-15.5); WBC 2.6 k/uL (3.8-10.6)
[2019-11-22 07:04] LABS: Platelet Count 42 k/uL (150-450)
[2019-11-22] MEDS: CHOLECALCIFEROL 1,000 UNIT TAB PO SCH (07:19)
[2019-11-22] MEDS: SPIRONOLACTONE 25 MG TAB PO SCH (07:19)
[2019-11-22] MEDS: MIDODRINE 5 MG TAB PO SCH ×3 (07:19→17:08)
[2019-11-22] MEDS: DABIGATRAN 75 MG CAP PO SCH ×2 (07:19→20:28)
[2019-11-22] MEDS: carvediloL 6.25 MG TAB PO SCH ×2 (07:19→17:08)
[2019-11-22] MEDS: CYANOCOBALAMIN 500 MCG TAB PO SCH (07:19)
[2019-11-22] MEDS: SYMBICORT 160-4.5 MCG INHALER INHALATION SCH ×2 (07:29→19:50)
[2019-11-22] MEDS: IPRATROPIUM-ALBUTEROL 3 ML NEB INHALATION SCH ×3 (07:29→19:51)
[2019-11-22 09:13] LABS: African American GFR (CKD) 46.3 (60.0-200.0); Anion Gap 8.7 mmol/L (4.00-12.00); BUN/Creat Ratio 21.18 Ratio (12.00-20.00); Calcium 8.7 mg/dL (8.7-10.3); Carbon Dioxide 21.3 mmol/L (21.6-31.8); Potassium 4.7 mmol/L (3.5-5.5)
[2019-11-22] MEDS: ACETAMINOPHEN TAB 325 MG TAB PO PRN (17:07)
--- NOTE | 2019-11-22 17:40 | PN ---
PROGRESS NOTE Patient is seen for followup for acute kidney injury on top of chronic kidney disease. Renal function has improved. Serum creatinine is down to 1.7 mg/dL. Overall patient states he is feeling better. PHYSICAL EXAMINATION: Blood pressure was 110/70, heart rate 80 per minute. He is afebrile. EXAMINATION OF THE HEART: S1 and S2. EXAMINATION OF LUNGS: Bilateral breath sounds are heard. ABDOMEN: Soft, obese. Examination of lower extremities shows chronic skin changes. No significant edema noted. EVENTS MANAGER exam is grossly intact. LABS: Labs show hemoglobin 10.0, sodium 140, potassium 4.7, chloride 110. CO2 is 21, BUN 36, serum creatinine 1.7 mg/dL. ASSESSMENT: 1. Acute kidney injury, acute tubular necrosis and prerenal, currently improved. Blood pressure has improved. The patient is status post IV fluids. He is maintained on midodrine. He will need followup as outpatient for CKD. 2. Chronic kidney disease. Previous creatinine 1.4 to 1.5 in April of 2019, although most recently staying at about 1.8. 3. NKF stage 3 secondary to nephrosclerosis. 4. Thrombocytopenia, which is chronic. 5. History of hepatitis C. PLAN: with midodrine. Patient can be discharged from nephrology standpoint and follow up as outpatient in about 2-3 weeks. MMARTIEL / IJN: [id number] /
--- NOTE | 2019-11-22 18:20 | P.PN ---
Progress Note - Text Progress Note Date: 11/22/19 Presenting complaint: Left arm pain Interval history: Patient presented with left wrist pain. Patient recently had a AAA with Dr. Reynoso with percutaneous endovascular aortic repair. Patient found to have pancytopenia. Being worked up by hematology.blood pressure been running low. Diuretics cutback. Coreg does scaled back. Today-feels better. Platelet ordered. Breathing stable. Review of systems: Was done for constitutional, cardiovascular, GI, pulmonary. relevant finding as above Tower Observer: Nephrology Dr. Matthews [facility] Active Medications Acetaminophen (Acetaminophen Tab 325 Mg Tab) 650 mg PO Q6HR PRN PRN Reason: Fever and/ or Pain Last Admin: 11/22/19 17:07 Dose: 650 mg Documented by: Albuterol/Ipratropium (Ipratropium-Albuterol 3 Ml Neb) 3 ml INHALATION RT-TID [facility] Last Admin: 11/22/19 10:59 Dose: 3 ml Documented by: Albuterol/Ipratropium (Ipratropium-Albuterol 3 Ml Neb) 3 ml INHALATION RT-Q2H PRN PRN Reason: Shortness Of Breath Or Wheezing Budesonide/Formoterol Fumarate (Symbicort 160-4.5 Mcg Inhaler) 2 puff INHALATION RT-BID [facility] Last Admin: 11/22/19 07:29 Dose: 2 puff Documented by: Carvedilol (Carvedilol 6.25 Mg Tab) 6.25 mg PO BID-W/MEALS [facility] Last Admin: 11/22/19 17:08 Dose: 6.25 mg Documented by: Cholecalciferol (Cholecalciferol 1,000 Unit Tab) 1,000 unit PO DAILY [facility] Last Admin: 11/22/19 07:19 Dose: 1,000 unit Documented by: Cyanocobalamin (Cyanocobalamin 500 Mcg Tab) 1,000 mcg PO DAILY [facility] Last Admin: 11/22/19 07:19 Dose: 1,000 mcg Documented by: Dabigatran (Dabigatran 75 Mg Cap) 75 mg PO BID [facility] Last Admin: 11/22/19 07:19 Dose: 75 mg Documented by: Midodrine (Midodrine 5 Mg Tab) 5 mg PO AC-TID [facility] Last Admin: 11/22/19 17:08 Dose: 5 mg Documented by: Naloxone HCl (Naloxone 0.4 Mg/Ml 1 Ml Vial) 0.2 mg IV Q2M PRN PRN Reason: Opioid Reversal Nitroglycerin (Nitroglycerin Sl Tabs 0.4 Mg Tab) 0.4 mg SUBLINGUAL Q5M PRN PRN Reason: Chest Pain Ondansetron HCl (Ondansetron 4 Mg/2 Ml Vial) 4 mg IVP Q6HR PRN PRN Reason: Nausea And Vomiting Spironolactone (Spironolactone 25 Mg Tab) 25 mg PO DAILY [facility] Last Admin: 11/22/19 07:19 Dose: 25 mg Documented by: On examination: VITAL SIGNS: 98.2, 73, 18, 116/35, 97% room air GENERAL APPEARANCE: Laying in bed, comfortable HEENT: Normal external appearance of nose and ear. Oral cavity normal EYES: Pupils equal. Conjunctiva normal. NECK: JVD not raised. Mass not palpable. RESPIRATORY: Respiratory effort normal. Lungs clear to auscultation. CARDIOVASCULAR: First and second sounds normal. Mild edema ABDOMEN: Soft. Liver and spleen not palpable. No tenderness. No mass palpable. PSYCHIATRY: Answering questions INVESTIGATIONS, reviewed in the clinical context: White count 2.6 hemoglobin 10 platelets 42 potassium 4.7 creatinine 1.7 Assessment: -New onset hypotension. Antihypertensive been cut back. Including diuretics.- Improved -Acute kidney injury injury possibly ATN from use of dana inhibitors and hypoperfusion.-Some improvement -Chronic kidney disease likely stage III from nephrosclerosis -COPD -Obesity BMI 39.8 -Chronic gout -Compensated cirrhosis secondary to hepatitis C -Pancytopenia likely due to cirrhosis, workup in place by hematology -GERD -Essential hypertension -Chronic congestive heart failure from diastolic dysfunction EF 55-60% -Abdominal aortic aneurysm endovascular repair status post -Left arm pain improved -Paroxysmal atrial fibrillation-started on per pradaxa by cardiology. Plan: Patient getting platelet transfusion today. 2 patient remain on Pradaxa patient should have at least platelets above 50. Await further input from cartilage about the same. May have to discontinue Pradaxa. Discussed with patient.
--- NOTE | 2019-11-22 20:51 | P.PN ---
Subjective Progress Note Date: 11/22/19 Patient denies any new complaints. Respiratory status has improved. No obvious bleeding. He denied any chest pain or palpitations. Objective - Vital Signs Vital signs: Vital Signs Temp 98 F 11/22/19 19:51 Pulse 72 11/22/19 19:59 Resp 20 11/22/19 19:51 BP 132/63 11/22/19 19:51 Pulse Ox 96 11/22/19 19:51 Intake & Output 11/22/19 11/22/19 11/23/19 06:59 18:59 06:59 Intake Total 500 1755 Output Total 0 0 0 Balance 500 1755 0 Weight 135 kg Intake: Intake, IV Titration 500 Amount Sodium Chloride 0.9% 1, 500 000 ml @ 50 mls/hr IV . Q20H [facility] Rx#:[id number] Oral 1540 Blood Product 215 Platelet Pheresis Acda3 215 Unit [id number] Output: Urine 0 0 0 Other: Voiding Method Toilet Toilet # Voids 0 3 0 - Constitutional General appearance: Present: no acute distress - EENT Eyes: Present: EOMI ENT: Present: hearing grossly normal, normal oropharynx - Cardiovascular Rhythm: regular Heart sounds: normal: S1, S2 - Gastrointestinal General gastrointestinal: Present: normal bowel sounds, soft - Integumentary Integumentary: Present: normal - Neurologic Neurologic: Present: CNII-XII intact - Musculoskeletal Musculoskeletal: Present: strength equal bilaterally - Psychiatric Psychiatric: Present: A&O x's 3 - Labs CBC & Chem 7: 11/22/19 05:38 11/22/19 05:38 Labs: Abnormal Lab Results - Last 24 Hours (Table) 11/22/19 11/22/19 Range/Units 05:38 05:38 WBC 2.6 L (3.8-10.6) k/uL RBC 2.80 L (4.30-5.90) m/uL Hgb 10.0 L (13.0-17.5) gm/dL Hct 30.3 L (39.0-53.0) % MCV 107.9 H (80.0-100.0) fL MCH 35.8 H (25.0-35.0) pg Plt Count 42 L (150-450) k/uL Lymphocytes # 0.7 L (1.0-4.8) k/uL Chloride 110 H (96-109) mmol/L Carbon Dioxide 21.3 L (21.6-31.8) mmol/L BUN 36.0 H (9.0-27.0) mg/dL Creatinine 1.7 H (0.6-1.5) mg/dL Est GFR (CKD-EPI)AfAm 46.3 L (60.0-200.0) Est GFR (CKD-EPI)NonAf 40.0 L (60.0-200.0) BUN/Creatinine Ratio 21.18 H (12.00-20.00) Ratio Assessment and Plan (1) Thrombocytopenia Narrative/Plan: This is felt to be due to chronic liver disease. Platelet counts continue to remain in the 40,000 range which is chronic and baseline for him. - Case discussed with cardiology. They indicated that the patient was prescribed anticoagulation because of his history of paroxysmal A. fib and t herefore continued anticoagulation is recommended. - This was discussed with the patient. He was advised that for anticoagulation updated count of greater than 50,000 is recommended. We will therefore start the patient on thrombopoiesis stability agent as an outpatient. While inpatient he will receive platelet transfusions for platelet count less than 50,000. 1 unit of platelets will be ordered today. Current Visit: Yes Status: Acute Code(s): D69.6 - THROMBOCYTOPENIA, UNSPECIFIED SNOMED Code(s): 852856835 (2) Pancytopenia Narrative/Plan: Due to chronic liver disease. Other counts are in a safe range. Continue to monitor Current Visit: Yes Status: Acute Code(s): D61.818 - OTHER PANCYTOPENIA SNOMED Code(s): 607812109 (3) COPD with acute exacerbation Narrative/Plan: Defer to the admitting service and other consultants for continued management. The patient is improved. Current Visit: No Status: Acute Code(s): J44.1 - CHRONIC OBSTRUCTIVE PULMONARY DISEASE W (ACUTE) EXACERBATION SNOMED Code(s): 755588309
[2019-11-23 06:18] LABS: Basophils % (A) 1 %; Eosinophils # (A) 0.2 k/uL (0-0.7); Eosinophils % (A) 6 %; HCT 30.9 % (39.0-53.0); HGB 10.1 gm/dL (13.0-17.5); Lymphocytes # (A) 0.8 k/uL (1.0-4.8); Lymphocytes % (A) 25 %; MCH 35.2 pg (25.0-35.0); MCHC 32.8 g/dL (31.0-37.0); MCV 107.5 fL (80.0-100.0); Macrocytosis Moderate; Mean Platelet Volume 10.1; Monocytes # (A) 0.2 k/uL (0-1.0); Monocytes % (A) 8 %; Neutrophils # (A) 1.8 k/uL (1.3-7.7); Neutrophils % (A) 58 %; RBC 2.88 m/uL (4.30-5.90); RDW 12.4 % (11.5-15.5)
[2019-11-23 06:21] LABS: Platelet Count 44 k/uL (150-450)
[2019-11-23] MEDS: SYMBICORT 160-4.5 MCG INHALER INHALATION SCH (08:12)
[2019-11-23] MEDS: IPRATROPIUM-ALBUTEROL 3 ML NEB INHALATION SCH ×2 (08:12→12:50)
[2019-11-23] MEDS: DABIGATRAN 75 MG CAP PO SCH (10:23)
[2019-11-23] MEDS: CHOLECALCIFEROL 1,000 UNIT TAB PO SCH (10:24)
[2019-11-23] MEDS: CYANOCOBALAMIN 500 MCG TAB PO SCH (10:24)
[2019-11-23] MEDS: SPIRONOLACTONE 25 MG TAB PO SCH (10:24)
--- NOTE | 2019-11-23 10:44 | P.PN ---
Subjective HISTORY OF PRESENTING ILLNESS This is a pleasant 69-year-old male past medical history significant for paroxysmal atrial fibrillation on long-term anticoagulation, COPD, chronic liver disease, hepatitis C, hypertension, chronic kidney disease, abdominal aneurysm status post endovascular repair October 2019, thrombocytopenia and morbid obesity. He follows in the office with Dr. Thorpe. He is seen and examined resting comfortably laying flat in bed in no acute distress. He denies symptoms of chest pain, shortness of breath, dizziness or palpitations. Echocardiogram obtained on this admission reveals preserved LV systolic function with ejection fraction 50-55%, mild tricuspid regurgitation and mild pulmonary hypertension with an RVSP of 39 mmHg. Blood pressure 97/59 heart rate 77 afebrile and maintaining oxygen saturation on room air. Laboratory data reviewed, WBC 3, hemoglobin 10.1, platelets 44, sodium 140, potassium 4.7, creatinine 1.7. Currently maintained on carvedilol 6.25 mg twice a day, Peridex 75 mg twice a day, midodrine 5 mg 3 times a day and Aldactone 25 mg daily. Torsemide and lisinopril have been discontinued per nephrology. Carvedilol has been decreased from 25 mg twice a day that was prescribed at home prior to admission. PHYSICAL EXAMINATION CONSTITUTIONAL: No apparent distress. Morbidly obese. HEENT: Head is normocephalic. Pupils are equal, round. Sclerae anicteric. Mucous membranes of the mouth are moist. No JVD. No carotid bruit. CHEST EXAMINATION: Lungs are clear to auscultation. No chest wall tenderness is noted on palpation or with deep breathing. HEART EXAMINATION: Irregular rate and rhythm. S1, S2 heard. Systolic ejection murmur at the base, no gallops or rub. EXTREMITIES: 2+ peripheral pulses, no lower extremity edema and no calf tenderness. ASSESSMENT Paroxysmal atrial fibrillation Thrombocytopenia, chronic History of hepatitis C Hypertension Chronic kidney disease Abdominal aortic aneurysm status post endovascular repair Obesity, BMI 40 PLAN Continue current medical regimen. Appreciate hematology input. Follow-up with Dr. Thorpe upon discharge. Nurse Practitioner note has been reviewed, I agree with a documented findings and plan of care. Patient was seen and examined. Objective - Vital Signs Vital signs: Vital Signs Temp 98.6 F 11/23/19 05:00 Pulse 77 11/23/19 08:22 Resp 18 11/23/19 05:00 BP 97/59 11/23/19 05:00 Pulse Ox 93 L 11/23/19 05:00 Intake & Output 11/22/19 11/23/19 11/23/19 18:59 06:59 18:59 Intake Total 1755 Output Total 0 0 Balance 1755 0 Weight 138 kg Intake: Oral 1540 Blood Product 215 Platelet Pheresis Acda3 215 Unit [id number] Output: Urine 0 0 Other: Voiding Method Toilet Toilet # Voids 3 0 - Labs CBC & Chem 7: 11/23/19 06:00 11/22/19 05:38 Labs: Abnormal Lab Results - Last 24 Hours (Table) 11/23/19 Range/Units 06:00 WBC 3.0 L (3.8-10.6) k/uL RBC 2.88 L (4.30-5.90) m/uL Hgb 10.1 L (13.0-17.5) gm/dL Hct 30.9 L (39.0-53.0) % MCV 107.5 H (80.0-100.0) fL MCH 35.2 H (25.0-35.0) pg Plt Count 44 L (150-450) k/uL Lymphocytes # 0.8 L (1.0-4.8) k/uL
[2019-11-23 11:18] VITALS: BMI 40.1
[2019-11-23 11:40] VITALS: RESP 17
[2019-11-23 11:41] VITALS: BP 121/70; PULSE 82; TEMP 97.4
[2019-11-23] MEDS: carvediloL 6.25 MG TAB PO SCH (12:20)
[2019-11-23] MEDS: MIDODRINE 5 MG TAB PO SCH ×2 (12:20→12:25)
[2019-11-23] MEDS: ACETAMINOPHEN TAB 325 MG TAB PO PRN (12:24)
--- NOTE | 2019-11-23 13:42 | P.PN ---
Subjective Progress Note Date: 11/23/19 Principal diagnosis: pancytopenia Feeling better NO s/s of bleeding Objective - Vital Signs Vital signs: Vital Signs Temp 97.4 F L 11/23/19 11:40 Pulse 82 11/23/19 11:40 Resp 17 11/23/19 11:40 BP 121/70 11/23/19 11:40 Pulse Ox 96 11/23/19 11:40 Intake & Output 11/22/19 11/23/19 11/23/19 18:59 06:59 18:59 Intake Total 1755 Output Total 0 0 Balance 1755 0 Weight 138 kg 138 kg Intake: Oral 1540 Blood Product 215 Platelet Pheresis Acda3 215 Unit [id number] Output: Urine 0 0 Other: Voiding Method Toilet Toilet # Voids 3 0 - Exam - Constitutional General appearance: cooperative, no acute distress - EENT Eyes: EOMI, PERRLA ENT: NA/AT, normal oropharynx - Neck Neck: normal ROM - Respiratory Respiratory: bilateral: diminished, rhonchi - Cardiovascular Compression stockings Rhythm: regular Heart sounds: normal: S1, S2 - Gastrointestinal General gastrointestinal: hepatomegaly, normal bowel sounds, soft - Integumentary Integumentary: pale - Neurologic Neurologic: CNII-XII intact - Musculoskeletal Musculoskeletal: generalized weakness, left sided weakness - Psychiatric Psychiatric: A&O x's 3, appropriate affect - Labs CBC & Chem 7: 11/23/19 06:00 11/22/19 05:38 Labs: Abnormal Lab Results - Last 24 Hours (Table) 11/23/19 Range/Units 06:00 WBC 3.0 L (3.8-10.6) k/uL RBC 2.88 L (4.30-5.90) m/uL Hgb 10.1 L (13.0-17.5) gm/dL Hct 30.9 L (39.0-53.0) % MCV 107.5 H (80.0-100.0) fL MCH 35.2 H (25.0-35.0) pg Plt Count 44 L (150-450) k/uL Lymphocytes # 0.8 L (1.0-4.8) k/uL Assessment and Plan (1) Pancytopenia Status: Acute Code(s): D61.818 - OTHER PANCYTOPENIA SNOMED Code(s): 778009664 (2) Liver disease Status: Acute Code(s): K76.9 - LIVER DISEASE, UNSPECIFIED SNOMED Code(s): 054963231 Plan: Assessment and Recommendations: Pancytopenia: - In review of his trended labs from May of 2016 it appears he has had chronic low blood counts likely secondary to underlying chronic liver disease Leukopenia: Baseline over the past few years 2.5-3.5, platelets at baseline appear 45K, and hemoglobin more recently (December 2018) baseline 11-12. - A full pancytopenia work up has been ordered to assess for other etiologies as well - Nutritional labs for area of supplementation ordered Left Wrist/Arm Pain: - Evaluated by other specialties felt to be musculoskeletal. - Unable to perform CT with contrast due to renal function Acute Renal Insufficiency: - This has been worsening over the past year. - Baseline Creat in August of this year 1.5, the past few months he has remained greater than 2 and slowing worsening. Plan: - Transfusion support for hemoglobin less than 7, platelets less than 10K or if signs of bleeding plt less than 50K Patient on Pradaxa must keep Platelet count greater than 50K - Transfuse today If skilled nursing anticoagulation is needed will need senior ux designer plan. - Will await cardiology recs regarding senior ux designer anticoagulation, in the interim continue to transfuse to keep platelets greater than 50K. If needs to stay on anticoagulation on discharge, transfuse prior (order placed) and will need to see Dr. Matthews this week to closely monitor and start Nplate
--- NOTE | 2019-11-23 17:06 | PN ---
PROGRESS NOTE Patient is seen for followup for acute kidney injury on top of chronic kidney disease. He is status post IV fluids. Renal function had improved with creatinine down to 1.7 yesterday. Currently patient denies any significant complaints. He will be discharged home today. PHYSICAL EXAMINATION: Blood pressure was 121/70, heart rate 82 per minute. He is afebrile. Examination of the lower extremities shows trace edema. Chronic skin changes noted. Abdomen is soft, morbidly obese. COMPONENT TECHNICIAN exam grossly intact. LABS: Labs show hemoglobin 10.1 from today. Creatinine 1.7 yesterday on 11/22/2019. Sodium 140, potassium 4.7. ASSESSMENT: 1. Acute kidney injury, acute tubular necrosis and a component of prerenal acute kidney injury, now improved. Patient's blood pressure was low. This has improved on midodrine and he is also status post IV fluids. 2. Chronic kidney disease. Previous creatinine 1.4 to 1.5, stage 3. Most recently creatinine staying at about 1.8. It was 1.4 to 1.5 in April of 2019. 3. Thrombocytopenia, which is chronic. 4. History of hepatitis C. PLAN: Patient can be discharged from nephrology standpoint. Follow up as outpatient in about 1-2 weeks for CKD. The patient is advised to avoid any nephrotoxic agents, including nonsteroidal anti-inflammatory agents. MMODL / IJN: [id number] /
[2019-11-23 18:28] LABS: African American GFR (CKD) 46.3 (60.0-200.0); Anion Gap 7.7 mmol/L (4.00-12.00); Calcium 8.8 mg/dL (8.7-10.3); Carbon Dioxide 19.3 mmol/L (21.6-31.8); Potassium 4.4 mmol/L (3.5-5.5)
--- NOTE | 2019-11-23 22:47 | P.DS ---
Providers Date of admission: 11/18/19 09:32 Expected date of discharge: 11/23/19 Attending physician: Juanjo Ratliff Consults: 11/16/19 16:56 Consult Physician Routine Consulting Provider: Riley Bernard Consult Reason/Comments: CP Do you want consulting provider notified?: Yes 11/17/19 14:39 Consult Physician Routine Consulting Provider: Daniel Matthews Consult Reason/Comments: low platelets and wbc Do you want consulting provider notified?: Yes 11/18/19 13:42 Consult Physician Routine Consulting Provider: Kamran Meeks Consult Reason/Comments: Elevated BUN and Creat Do you want consulting provider notified?: Yes 11/19/19 10:58 Consult Physician Routine Consulting Provider: Marianne Post Consult Reason/Comments: kidney injury Do you want consulting provider notified?: Yes 11/22/19 15:28 Consult Physician Routine Consulting Provider: [facility] Consult Reason/Comments: A-fib / Anticoagulation Do you want consulting provider notified?: Already Contacted Primary care physician: [facility] Course: Presenting complaint: Left arm pain Interval history: Patient presented with left wrist pain. Patient recently had a AAA with Dr. Scar jacome with percutaneous endovascular aortic repair. Patient found to have pancytopenia. Being worked up by hematology.blood pressure been running low. Diuretics cutback. Coreg does scaled back. Patient has chronically been on Ranexa for the A. fib. Platelet chronically run below 50. Platelets were transfused. Today-feeling much improved. Discussed with cardiology. Continue with Pradaxa. Discussed with the patient. Questions answered. Discussion and discharge planning more than 35 minutes Take Up Operator: Nephrology Dr. Matthews from [facility] On examination: VITAL SIGNS: 97.4, 82, 17, 121 with 70, 96% room air GENERAL APPEARANCE: Laying in bed, comfortable HEENT: Normal external appearance of nose and ear. Oral cavity normal EYES: Pupils equal. Conjunctiva normal. NECK: JVD not raised. Mass not palpable. RESPIRATORY: Respiratory effort normal. Lungs clear to auscultation. CARDIOVASCULAR: First and second sounds normal. Mild edema ABDOMEN: Soft. Liver and spleen not palpable. No tenderness. No mass palpable. PSYCHIATRY: Answering questions INVESTIGATIONS, reviewed in the clinical context: White count 3 hemoglobin 10.1 platelets 44 potassium 4.4 creatinine 1.7 Admission labs: Bun 56 creatinine 2.61 platelets 39 hemoglobin 11.6 Abdominal ultrasound-spleen enlargement 17.9 cm, some nodularity of the liver. Today echocardiogram-moderate concentric LVH, EF 50-55%, right ventricle severely severely enlarged Left shoulder x-ray negative VQ scan-Lo property for PE Left upper extremity Doppler ultrasound-negative for DVT Assessment: -New onset hypotension. Antihypertensive been cut back. 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 Disposition: Home Patient Condition at Discharge: Stable Plan - Discharge Summary Discharge Rx Participant: No New Discharge Prescriptions: New carvediloL [Coreg] 6.25 mg PO BID-W/MEALS #60 tab Dabigatran [Pradaxa] 75 mg PO BID #60 cap Midodrine [ProAmatine] 5 mg PO AC-TID #90 tab Cyanocobalamin [Vitamin B-12] 1,000 mcg PO DAILY #30 tab Continue Budesonide-Formot 160-4.5 Mcg [Symbicort 160-4.5 Mcg Inhaler] 2 puff INHALATION RT-BID Ipratropium-Albuterol Nebulize [Duoneb 0.5 mg-3 mg/3 ml Soln] 3 ml INHALATION RT-Q6H PRN PRN Reason: Shortness Of Breath Cholecalciferol [Vitamin D3 (25 Mcg = 1000 Iu)] 1,000 unit PO DAILY Albuterol Sulfate [Ventolin HFA] 1 - 2 puff INHALATION RT-Q6H PRN PRN Reason: Shortness Of Breath Nitroglycerin Sl Tabs [Nitrostat] 0.4 mg PO Q5M PRN PRN Reason: Chest Pain Changed Spironolactone [Aldactone] 25 mg PO DAILY #0 Torsemide [Demadex] 40 mg PO DAILY PRN #0 PRN Reason: Edema Discontinued carvediloL [Carvedilol] 25 mg PO BID lisinopriL [Zestril] 5 mg PO HS Discharge Medication List Budesonide-Formot 160-4.5 Mcg [Symbicort 160-4.5 Mcg Inhaler] 2 puff INHALATION RT-BID 05/11/19 [History] Cholecalciferol [Vitamin D3 (25 Mcg = 1000 Iu)] 1,000 unit PO DAILY 05/11/19 [History] Ipratropium-Albuterol Nebulize [Duoneb 0.5 mg-3 mg/3 ml Soln] 3 ml INHALATION RT-Q6H PRN 05/11/19 [History] Albuterol Sulfate [Ventolin HFA] 1 - 2 puff INHALATION RT-Q6H PRN 08/31/19 [History] Nitroglycerin Sl Tabs [Nitrostat] 0.4 mg PO Q5M PRN 08/31/19 [History] Cyanocobalamin [Vitamin B-12] 1,000 mcg PO DAILY #30 tab 11/23/19 [Rx] Dabigatran [Pradaxa] 75 mg PO BID #60 cap 11/23/19 [Rx] Midodrine [ProAmatine] 5 mg PO AC-TID #90 tab 11/23/19 [Rx] Spironolactone [Aldactone] 25 mg PO DAILY #0 11/23/19 [Rx] Torsemide [Demadex] 40 mg PO DAILY PRN #0 11/23/19 [Rx] carvediloL [Coreg] 6.25 mg PO BID-W/MEALS #60 tab 11/23/19 [Rx] Follow up Appointment(s)/Referral(s): dr marco [Other] - 1 Week (office appt. to call with appt. time and date.) Riley Bernard MD [Family Provider] - 12/07/19 2:30 pm [facility], [NON-STAFF] - As Needed Aristides Mena DO [Primary Care Provider] - 11/26/19 8:00 am Patient Instructions/Handouts: Chest Pain (GEN) Activity/Diet/Wound Care/Special Instructions: ok with dr bernard to continue pradaxa Discharge Disposition: HOME WITH HOME HEALTH SERVICES
== END 2019-11-23 13:13 | disposition home health service (06) | DRG 808 ==
LOC: EC 14:00 → 3NCARDOBS 16:52 → UNDODISOB 18:00 → OBSVTOIN 11-18 09:32 → 6NMEDSUR 11-18 12:46
PROVIDERS: ADMIT Hospitalist; ATTEND Hospitalist
PROC: 30233R1 Transfusion of Nonautologous Platelets into Peripheral Vein, Percutaneous Approach (ICD-10-PCS; principal; 2019-11-21)
DX: D61.818 Other pancytopenia (principal); N17.0 Acute kidney failure with tubular necrosis; I13.0 Hypertensive heart and chronic kidney disease with heart failure and stage 1 through stage 4 chronic kidney disease, or unspecified chronic kidney disease; I42.8 Other cardiomyopathies; I50.32 Chronic diastolic (congestive) heart failure; Z68.41 Body mass index [BMI] 40.0-44.9, adult; J44.1 Chronic obstructive pulmonary disease with (acute) exacerbation; I27.20 Pulmonary hypertension, unspecified; I95.9 Hypotension, unspecified; K74.60 Unspecified cirrhosis of liver; N18.3 Chronic kidney disease, stage 3 (moderate); E66.01 Morbid (severe) obesity due to excess calories; I48.0 Paroxysmal atrial fibrillation; I25.10 Atherosclerotic heart disease of native coronary artery without angina pectoris; I44.4 Left anterior fascicular block; K21.9 Gastro-esophageal reflux disease without esophagitis; N14.1 Nephropathy induced by other drugs, medicaments and biological substances; T50.8X5A Adverse effect of diagnostic agents, initial encounter; F32.9 Major depressive disorder, single episode, unspecified; R16.1 Splenomegaly, not elsewhere classified; M25.512 Pain in left shoulder; M25.532 Pain in left wrist; M79.602 Pain in left arm; M1A.9XX0 Chronic gout, unspecified, without tophus (tophi); Z79.51 Long term (current) use of inhaled steroids; Z79.899 Other long term (current) drug therapy; Z71.3 Dietary counseling and surveillance; Z87.891 Personal history of nicotine dependence; Z86.79 Personal history of other diseases of the circulatory system; Z86.19 Personal history of other infectious and parasitic diseases; Z87.19 Personal history of other diseases of the digestive system; Z98.890 Other specified postprocedural states; Z80.9 Family history of malignant neoplasm, unspecified
CPT/HCPCS: 36415; 71046; 76700; 78582; 80048; 80053; 81001; 82607; 82728; 82746; 82784; 83010; 83540; 83550; 83615; 83735; 83883; 83921; 84165; 84484; 85025; 85045; 85379; 85610; 85652; 85730; 86038; 86334; 86335; 86431; 86850; 86900; 86901; 93005; 93306; 94640; 99285

== ENCOUNTER 2019-12-08 22:16 | Emergency (ER) | payer MEDICARE ==
--- NOTE | 2019-12-08 22:37 | ED ---
Chest Pain HPI - General Chief Complaint: Chest Pain Stated Complaint: HAN Time Seen by Provider: 12/08/19 22:27 Source: patient, family Mode of arrival: wheelchair Limitations: no limitations - History of Present Illness MD Complaint: chest pain Onset/Timin -: week(s) Onset: during rest Pain Location: left chest Pain Radiation: none Severity: moderate Quality: sharp Consistency: constant Improves With: nothing Worsens With: inspiration, movement Other Symptoms: cough Treatments Prior to Arrival: none - Related Data Home Medications Medication Instructions Recorded Confirmed Budesonide-Formot 160-4.5 Mcg 2 puff INHALATION RT-BID 05/11/19 11/16/19 [Symbicort 160-4.5 Mcg Inhaler] Cholecalciferol [Vitamin D3 (25 1,000 unit PO DAILY 05/11/19 11/16/19 Mcg = 1000 Iu)] Ipratropium-Albuterol Nebulize 3 ml INHALATION RT-Q6H PRN 05/11/19 11/16/19 [Duoneb 0.5 mg-3 mg/3 ml Soln] Albuterol Sulfate [Ventolin HFA] 1 - 2 puff INHALATION RT-Q6H PRN 08/31/19 11/16/19 Nitroglycerin Sl Tabs [Nitrostat] 0.4 mg PO Q5M PRN 08/31/19 11/16/19 Previous Rx's Medication Instructions Recorded Cyanocobalamin [Vitamin B-12] 1,000 mcg PO DAILY #30 tab 11/23/19 Dabigatran [Pradaxa] 75 mg PO BID #60 cap 11/23/19 Midodrine [ProAmatine] 5 mg PO AC-TID #90 tab 11/23/19 Spironolactone [Aldactone] 25 mg PO DAILY #0 11/23/19 Torsemide [Demadex] 40 mg PO DAILY PRN #0 11/23/19 carvediloL [Coreg] 6.25 mg PO BID-W/MEALS #60 tab 11/23/19 Doxycycline [Vibramycin] 100 mg PO BID #14 capsule 12/09/19 HYDROcodone/APAP 7.5-325MG [[place] 1 tab PO Q4H PRN 3 Days #18 tab 12/09/19 7.5-325] predniSONE [Deltasone] 20 mg PO BID #8 tab 12/09/19 Allergies Allergy/AdvReac Type Severity Reaction Status Date / Time codeine Allergy Rash/Hives Verified 12/08/19 23:27 apixaban [From Eliquis] AdvReac Rash/Hives Verified 12/08/19 22:22 Review of Systems ROS Statement: Those systems with pertinent positive or pertinent negative responses have been documented in the HPI. ROS Other: All systems not noted in ROS Statement are negative. EKG Findings - EKG Results: EKG: interpreted by DENILSON, sinus rhythm (Rate 81 bpm) - Blocks, [place], Hypertrophy, ST Abn: AV and intraventricular conduction: right bundle branch block (fixed/intermittent, complete/incomplete) (Incomplete) QRS axis and voltage: left axis deviation (-30 to -90) Repolarization changes or abnormalities: nonspecific abnormality, ST segment, and/or T wave, Q-T interval prolongation Past Medical History Past Medical History: Heart Failure, COPD, GERD/Reflux, Hypertension, Liver Disease Additional Past Medical History / Comment(s): hepatitis C treated X 2, CIRRHOSIS OF LIVER, 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 History of Any Multi-Drug Resistant Organisms: None Reported Past Surgical History: Heart Catheterization, Hernia Repair, Orthopedic Surgery Additional Past Surgical History / Comment(s): HEART CATHX2, RIGHT shoulder surgery, UMBILICAL HERNIA REPAIR, Past Anesthesia/Blood Transfusion Reactions: Motion Sickness Past Psychological History: No Psychological Hx Reported Smoking Status: Former smoker Past Alcohol Use History: None Reported Past Drug Use History: Marijuana - Past Family History Mother Family Medical History: Cancer General Exam Limitations: no limitations General appearance: alert, in no apparent distress Head exam: Present: atraumatic, normocephalic Eye exam: Present: normal appearance. Absent: scleral icterus, conjunctival injection Respiratory exam: Present: wheezes, rhonchi, chest wall tenderness. Absent: respiratory distress, accessory muscle use, decreased breath sounds, prolonged expiratory Cardiovascular Exam: Present: regular rate, normal rhythm, normal heart sounds. Absent: systolic murmur, diastolic murmur, rubs, gallop GI/Abdominal exam: Present: soft. Absent: distended, tenderness, guarding, rebound, mass Extremities exam: Present: normal capillary refill. Absent: pedal edema, calf tenderness Neurological exam: Present: alert Skin exam: Present: warm, dry, intact, normal color. Absent: rash Course Vital Signs 12/08/19 12/08/19 22:19 23:01 Temperature 99.6 F 101.2 F H Pulse Rate 82 74 Respiratory 18 22 Rate Blood Pressure 154/70 140/93 O2 Sat by Pulse 97 91 L Oximetry Chest Pain MDM - MDM Patient 69-year-old man here with COPD exacerbation, left upper chest wall pain and tenderness. The patient did subsequently developed fever. Discussed the findings with the patient and did recommend that he stay, but patient states he is feeling much better and would like to go home. He will keep a low threshold for returning. If the fever continues. If he has any worsening of his cough if he develops dyspnea any change in his condition at all he will return. If he is not improving he'll return. Disposition Clinical Impression: COPD with acute exacerbation, Chest wall pain Disposition: HOME SELF-CARE Condition: Fair Instructions (If sedation given, give patient instructions): Chest Pain (ED), COPD (Chronic Obstructive Pulmonary Disease) (DC) Prescriptions: predniSONE [Deltasone] 20 mg PO BID #8 tab HYDROcodone/APAP 7.5-325MG [[place] 7.5-325] 1 tab PO Q4H PRN 3 Days #18 tab PRN Reason: Pain Doxycycline [Vibramycin] 100 mg PO BID #14 capsule Is patient prescribed a controlled substance at d/c from ED?: Yes When asked, does pt state using other controlled substances?: No If prescribed controlled substance>3 days was MAPS reviewed?: Prescribed <3 Days If opioid is for acute pain is fill amount 7 days or less?: Yes If Rx opioid, was Start Talking consent form obtained?: Yes Referrals: Aristides Mena DO [Primary Care Provider] - 1-2 days
[2019-12-08 23:10] LABS: Basophils % (A) 0 %; Eosinophils # (A) 0.2 k/uL (0-0.7); Eosinophils % (A) 2 %; HCT 35.9 % (39.0-53.0); HGB 12.5 gm/dL (13.0-17.5); Lymphocytes # (A) 1.3 k/uL (1.0-4.8); Lymphocytes % (A) 15 %; MCH 36.2 pg (25.0-35.0); MCHC 34.8 g/dL (31.0-37.0); Macrocytosis Slight; Mean Platelet Volume 9.3; Monocytes # (A) 0.7 k/uL (0-1.0); Monocytes % (A) 9 %; Neutrophils # (A) 6.1 k/uL (1.3-7.7); Neutrophils % (A) 72 %; RBC 3.45 m/uL (4.30-5.90); WBC 8.4 k/uL (3.8-10.6)
[2019-12-08] MEDS ORDERED: HYDROcodone/APAP 7.5-325MG 1 EACH TAB PO ONE (23:14)
--- NOTE | 2019-12-08 23:21 | XR ---
EXAMINATION TYPE: XR chest 2V DATE OF EXAM: 12/08/2019 COMPARISON: 11/16/2019 HISTORY: Chest pain TECHNIQUE: FINDINGS: Heart and mediastinum are normal. The lungs are clear of consolidation. There are no hilar masses. There are chest leads. IMPRESSION: No active cardiopulmonary disease. No change.
[2019-12-08 23:33] LABS: Albumin 3.6 g/dL (3.5-5.0); Calcium 9.3 mg/dL (8.4-10.2); Potassium 4.3 mmol/L (3.5-5.1); Total Bilirubin 2.3 mg/dL (0.2-1.3); Total Protein 7.3 g/dL (6.3-8.2)
[2019-12-08 23:35] LABS: INR 1.2 (<1.2); Partial Thromboplastin Time 38.6 sec (22.0-30.0); Prothrombin Time 12.3 sec (9.0-12.0)
[2019-12-08 23:38] LABS: D-Dimer 3.22 mg/L FEU (<0.60)
[2019-12-08 23:52] LABS: Large Platelets Present
[2019-12-08 23:53] LABS: Platelet Count 84 k/uL (150-450)
[2019-12-09] MEDS ORDERED: predniSONE 20 MG TAB PO STA (00:37)
[2019-12-09] MEDS ORDERED: DOXYCYCLINE 100 MG CAP PO STA (00:37)
[2019-12-09 01:00] VITALS: BP 132/87; PULSE 87; RESP 16; TEMP 98.6
== END 2019-12-09 00:56 | disposition home or self-care (01) ==
LOC: EC 22:16
DX: R07.89 Other chest pain (principal); J44.1 Chronic obstructive pulmonary disease with (acute) exacerbation; K21.9 Gastro-esophageal reflux disease without esophagitis; I11.0 Hypertensive heart disease with heart failure; I50.9 Heart failure, unspecified; Z79.51 Long term (current) use of inhaled steroids; Z79.899 Other long term (current) drug therapy; Z88.5 Allergy status to narcotic agent; Z88.8 Allergy status to other drugs, medicaments and biological substances; Z87.891 Personal history of nicotine dependence; Z95.5 Presence of coronary angioplasty implant and graft
CPT/HCPCS: 36415; 93005; 85379; 83880; 80053; 83735; 84484; 85025; 85610; 85730; 71046; 99285; J7512

== ENCOUNTER 2019-12-18 08:54 | Inpatient (IN) | payer MEDICARE ==
[2019-12-18] MEDS ORDERED: IPRATROPIUM 0.5 MG/2.5 ML NEBU INHALATION STA (09:11)
[2019-12-18] MEDS ORDERED: ALBUTEROL NEBULIZED 2.5 MG/3 ML INHALATION STA (09:11)
[2019-12-18] MEDS ORDERED: methylPREDNISolone SOD SUCCI 125 MG/2 ML VIAL IV STA (09:11)
--- NOTE | 2019-12-18 09:20 | ED ---
General Adult HPI - General Chief complaint: Shortness of Breath Stated complaint: HAN Time Seen by Provider: 12/18/19 08:59 Source: patient, RN notes reviewed, old records reviewed Mode of arrival: wheelchair Limitations: physical limitation - History of Present Illness Initial comments: 69-year-old male presenting for evaluation of cough, dyspnea, chest pain. Patient was seen approximately one week ago, was prescribed steroids and antibiotics. He states that after he finished his steroid course his breathing began to worsen. He reports a nonproductive cough as well as chest pain. He denies lower extremity swelling. He denies fever. His cough is nonproductive. He has history of COPD and was a former smoker. - Related Data Home Medications Medication Instructions Recorded Confirmed Budesonide-Formot 160-4.5 Mcg 2 puff INHALATION RT-BID 05/11/19 12/18/19 [Symbicort 160-4.5 Mcg Inhaler] Cholecalciferol [Vitamin D3 (25 1,000 unit PO DAILY 05/11/19 12/18/19 Mcg = 1000 Iu)] Ipratropium-Albuterol Nebulize 3 ml INHALATION RT-Q6H PRN 05/11/19 12/18/19 [Duoneb 0.5 mg-3 mg/3 ml Soln] Albuterol Sulfate [Ventolin HFA] 1 - 2 puff INHALATION RT-Q6H PRN 08/31/19 12/18/19 Nitroglycerin Sl Tabs [Nitrostat] 0.4 mg PO Q5M PRN 08/31/19 12/18/19 methocarbamoL [Robaxin] 500 mg PO TID PRN 12/18/19 12/18/19 Previous Rx's Medication Instructions Recorded Cyanocobalamin [Vitamin B-12] 1,000 mcg PO DAILY #30 tab 11/23/19 Dabigatran [Pradaxa] 75 mg PO BID #60 cap 11/23/19 Midodrine [ProAmatine] 5 mg PO AC-TID #90 tab 11/23/19 Spironolactone [Aldactone] 25 mg PO DAILY #0 11/23/19 Torsemide [Demadex] 40 mg PO DAILY PRN #0 11/23/19 carvediloL [Coreg] 6.25 mg PO BID-W/MEALS #60 tab 11/23/19 HYDROcodone/APAP 7.5-325MG [[place] 1 tab PO Q4H PRN 3 Days #18 tab 12/09/19 7.5-325] Allergies Allergy/AdvReac Type Severity Reaction Status Date / Time codeine Allergy Rash/Hives Verified 12/18/19 09:51 apixaban [From Eliquis] AdvReac Rash/Hives Verified 12/18/19 09:51 Review of Systems ROS Statement: Those systems with pertinent positive or pertinent negative responses have been documented in the HPI. ROS Other: All systems not noted in ROS Statement are negative. Past Medical History Past Medical History: Heart Failure, COPD, GERD/Reflux, Hypertension, Liver Disease Additional Past Medical History / Comment(s): hepatitis C treated X 2, CIRRHOSIS OF LIVER, 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 History of Any Multi-Drug Resistant Organisms: None Reported Past Surgical History: Heart Catheterization, Hernia Repair, Orthopedic Surgery Additional Past Surgical History / Comment(s): HEART CATHX2, RIGHT shoulder surgery, UMBILICAL HERNIA REPAIR, Past Anesthesia/Blood Transfusion Reactions: Motion Sickness Past Psychological History: No Psychological Hx Reported Smoking Status: Former smoker Past Alcohol Use History: None Reported Past Drug Use History: Marijuana - Past Family History Mother Family Medical History: Cancer General Exam Limitations: physical limitation General appearance: alert, in no apparent distress Head exam: Present: atraumatic, normocephalic Eye exam: Present: normal appearance, PERRL ENT exam: Present: normal exam Neck exam: Present: normal inspection. Absent: tenderness, meningismus Respiratory exam: Present: respiratory distress, wheezes Cardiovascular Exam: Present: regular rate, normal rhythm GI/Abdominal exam: Present: soft. Absent: distended, tenderness, guarding Extremities exam: Present: pedal edema Back exam: Present: normal inspection Neurological exam: Present: alert, oriented X3 Psychiatric exam: Present: normal affect, normal mood Skin exam: Present: warm, dry, intact. Absent: cyanosis, diaphoretic Course Vital Signs 12/18/19 12/18/19 12/18/19 08:59 09:24 09:25 Temperature 99.2 F Pulse Rate 97 84 Respiratory 24 18 20 Rate Blood Pressure 131/80 154/93 O2 Sat by Pulse 97 98 Oximetry 12/18/19 09:49 Temperature Pulse Rate 90 Respiratory 18 Rate Blood Pressure 136/80 O2 Sat by Pulse 98 Oximetry EKG Findings - EKG Comments: EKG Findings:: EKG: Normal sinus rhythm, left anterior fascicular block, rate of 99, QRS duration 94, QTC 454, no ST segment elevation. Medical Decision Making - Medical Decision Making 69-year-old male with worsening cough and dyspnea history of COPD for chest x- ray showing a increase infiltrate in the left lower lobe. Patient is started on IV antibiotics, IV steroids, breathing treatments. He has a white blood cell count 7.5, stable hemoglobin, his platelets are 64 which is chronic and stable for this patient. He has chronic kidney disease which is at baseline with a creatinine of 1.74. Has a negative troponin, negative BNP. Patient will be admitted for IV antibiotics and IV steroids. Case discussed with Dr. Cameron who will admit. - Lab Data Result diagrams: 12/18/19 09:19 12/18/19 09:19 Lab Results 12/18/19 12/18/19 12/18/19 Range/Units 09:19 09:19 09:19 WBC 7.5 (3.8-10.6) k/uL RBC 3.76 L (4.30-5.90) m/uL Hgb 13.8 (13.0-17.5) gm/dL Hct 40.5 (39.0-53.0) % MCV 107.9 H (80.0-100.0) fL MCH 36.8 H (25.0-35.0) pg MCHC 34.1 (31.0-37.0) g/dL RDW 12.7 (11.5-15.5) % Plt Count 64 L (150-450) k/uL Neutrophils % 75 % Lymphocytes % 15 % Monocytes % 7 % Eosinophils % 2 % Basophils % 1 % Neutrophils # 5.6 (1.3-7.7) k/uL Lymphocytes # 1.1 (1.0-4.8) k/uL Monocytes # 0.5 (0-1.0) k/uL Eosinophils # 0.1 (0-0.7) k/uL Basophils # 0.0 (0-0.2) k/uL Macrocytosis Moderate PT 11.9 (9.0-12.0) sec INR 1.2 H (<1.2) APTT 34.8 H (22.0-30.0) sec Sodium 135 L (137-145) mmol/L Potassium 4.8 (3.5-5.1) mmol/L Chloride 100 (98-107) mmol/L Carbon Dioxide 30 (22-30) mmol/L Anion Gap 5 mmol/L BUN 33 H (9-20) mg/dL Creatinine 1.74 H (0.66-1.25) mg/dL Est GFR (CKD-EPI)AfAm 45 (>60 ml/min/1.73 sqM) Est GFR (CKD-EPI)NonAf 39 (>60 ml/min/1.73 sqM) Glucose 226 H (74-99) mg/dL Plasma Lactic Acid Gopi (0.7-2.0) mmol/L Calcium 9.0 (8.4-10.2) mg/dL Magnesium 2.2 (1.6-2.3) mg/dL Total Bilirubin 3.1 H (0.2-1.3) mg/dL AST 24 (17-59) U/L ALT 17 (4-49) U/L Alkaline Phosphatase 112 (38-126) U/L Troponin I (0.000-0.034) ng/mL NT-Pro-B Natriuret Pep pg/mL Total Protein 6.6 (6.3-8.2) g/dL Albumin 3.2 L (3.5-5.0) g/dL 12/18/19 12/18/19 12/18/19 Range/Units 09:19 09:19 09:19 WBC (3.8-10.6) k/uL RBC (4.30-5.90) m/uL Hgb (13.0-17.5) gm/dL Hct (39.0-53.0) % MCV (80.0-100.0) fL MCH (25.0-35.0) pg MCHC (31.0-37.0) g/dL RDW (11.5-15.5) % Plt Count (150-450) k/uL Neutrophils % % Lymphocytes % % Monocytes % % Eosinophils % % Basophils % % Neutrophils # (1.3-7.7) k/uL Lymphocytes # (1.0-4.8) k/uL Monocytes # (0-1.0) k/uL Eosinophils # (0-0.7) k/uL Basophils # (0-0.2) k/uL Macrocytosis PT (9.0-12.0) sec INR (<1.2) APTT (22.0-30.0) sec Sodium (137-145) mmol/L Potassium (3.5-5.1) mmol/L Chloride (98-107) mmol/L Carbon Dioxide (22-30) mmol/L Anion Gap mmol/L BUN (9-20) mg/dL Creatinine (0.66-1.25) mg/dL Est GFR (CKD-EPI)AfAm (>60 ml/min/1.73 sqM) Est GFR (CKD-EPI)NonAf (>60 ml/min/1.73 sqM) Glucose (74-99) mg/dL Plasma Lactic Acid Gopi 1.8 (0.7-2.0) mmol/L Calcium (8.4-10.2) mg/dL Magnesium (1.6-2.3) mg/dL Total Bilirubin (0.2-1.3) mg/dL AST (17-59) U/L ALT (4-49) U/L Alkaline Phosphatase (38-126) U/L Troponin I <0.012 (0.000-0.034) ng/mL NT-Pro-B Natriuret Pep 149 pg/mL Total Protein (6.3-8.2) g/dL Albumin (3.5-5.0) g/dL Disposition Clinical Impression: COPD with acute exacerbation, Community acquired pneumonia Disposition: ADMITTED IP TO THIS [facility] Condition: Stable Is patient prescribed a controlled substance at d/c from ED?: No Referrals: Aristides Mena DO [Primary Care Provider] - 1-2 days Decision to Admit Reason: Admit from EC Decision Date: 12/18/19 Decision Time: 10:18
[2019-12-18 09:40] LABS: Basophils % (A) 1 %; Eosinophils # (A) 0.1 k/uL (0-0.7); Eosinophils % (A) 2 %; HCT 40.5 % (39.0-53.0); HGB 13.8 gm/dL (13.0-17.5); Lymphocytes # (A) 1.1 k/uL (1.0-4.8); Lymphocytes % (A) 15 %; MCH 36.8 pg (25.0-35.0); MCHC 34.1 g/dL (31.0-37.0); MCV 107.9 fL (80.0-100.0); Macrocytosis Moderate; Mean Platelet Volume 9.4; Monocytes # (A) 0.5 k/uL (0-1.0); Monocytes % (A) 7 %; Neutrophils # (A) 5.6 k/uL (1.3-7.7); Neutrophils % (A) 75 %; RBC 3.76 m/uL (4.30-5.90); RDW 12.7 % (11.5-15.5); WBC 7.5 k/uL (3.8-10.6)
[2019-12-18 09:42] LABS: Platelet Count 64 k/uL (150-450)
[2019-12-18 09:47] LABS: Albumin 3.2 g/dL (3.5-5.0); Magnesium 2.2 mg/dL (1.6-2.3); Potassium 4.8 mmol/L (3.5-5.1); Total Bilirubin 3.1 mg/dL (0.2-1.3); Total Protein 6.6 g/dL (6.3-8.2)
[2019-12-18 09:53] LABS: INR 1.2 (<1.2); Partial Thromboplastin Time 34.8 sec (22.0-30.0); Prothrombin Time 11.9 sec (9.0-12.0)
--- NOTE | 2019-12-18 10:02 | XR ---
EXAMINATION TYPE: XR chest 2V DATE OF EXAM: 12/18/2019 COMPARISON: 12/08/2019 HISTORY: Shortness of breath TECHNIQUE: Frontal and lateral views of the chest are obtained. FINDINGS: Scattered senescent parenchymal changes noted. Hyperinflation compatible with COPD. Increased density left lower lobe may reflect developing infiltrate. Correlate clinically. Heart size is stable. Mediastinal structures are stable and grossly unremarkable. No evidence for hilar prominence. Degenerative changes dorsal spine. IMPRESSION: 1. Increased density left lower lobe may reflect developing infiltrate. Correlate clinically.
[2019-12-18] MEDS ORDERED: AZITHROMYCIN 500 MG in SODIUM CHLORIDE 0.9% 250 ML IVPB STA (10:04)
[2019-12-18] MEDS ORDERED: cefTRIAXone IN SWFI 1,000 MG/10 ML SYRINGE IVP STA (10:04)
[2019-12-18] MEDS ORDERED: IPRATROPIUM-ALBUTEROL 3 ML NEB INHALATION PRN (10:15)
[2019-12-18] MEDS ORDERED: MORPHINE SULFATE 4 MG/ML SYRINGE IVP STA (10:32)
[2019-12-18] MEDS ORDERED: HYDROcodone/APAP 7.5-325MG 1 EACH TAB PO ONE (10:35)
[2019-12-18] MEDS ORDERED: methylPREDNISolone SOD SUCCI 125 MG/2 ML VIAL IV SCH (12:00)
[2019-12-18] MEDS ORDERED: methocarbamoL 500 MG TAB PO PRN (13:57)
[2019-12-18] MEDS ORDERED: NITROGLYCERIN SL TABS 0.4 MG TAB SUBLINGUAL PRN (13:57)
--- NOTE | 2019-12-18 14:08 | P.HPIM ---
History of Present Illness 69-year-old pleasant male came in with complaints of shortness of breath, cough with green sputum production. Patient doesn't have any fever, doesn't have any leukocytosis chest x-ray did show some infiltratethe left the lungs in the inferior lung navarro. Patient was given antibiotics. Patient was subsequently admitted for COPD exacerbation and possible pneumonia. Patient does have extensive history in the past moderate amount of multiple medical problems including hepatitis B and cirrhosis patient is on diuretics. Patient does have history of chronic kidney disease with baseline creatinine around 1.7. Patient does have history of atrial fibrillation on anticoagulation with predexa. Patient didn't have any significant fever here did have mild low-grade temperature of 99.8. Review of Systems REVIEW OF SYSTEMS: CONSTITUTIONAL: No fever, no malaise, no fatigue. HEENT: No recent visual problems or hearing problems. Denied any sore throat. CARDIOVASCULAR: No chest pain, orthopnea, PND, no palpitations, no syncope. PULMONARY: as mentioned in HPI GASTROINTESTINAL: No diarrhea, no nausea, no vomiting, no abdominal pain. NEUROLOGICAL: No headaches, no weakness, no numbness. HEMATOLOGICAL: Denies any bleeding or petechiae. GENITOURINARY: Denies any burning micturition, frequency, or urgency. MUSCULOSKELETAL/RHEUMATOLOGICAL: Denies any joint pain, swelling, or any muscle pain. ENDOCRINE: Denies any polyuria or polydipsia. The rest of the 14-point review of systems is negative. Past Medical History Past Medical History: Heart Failure, COPD, GERD/Reflux, Hypertension, Liver Disease Additional Past Medical History / Comment(s): hepatitis C treated X 2, CIRRHOSIS OF LIVER, 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 History of Any Multi-Drug Resistant Organisms: None Reported Past Surgical History: Heart Catheterization, Hernia Repair, Orthopedic Surgery Additional Past Surgical History / Comment(s): HEART CATHX2, RIGHT shoulder s urgery, UMBILICAL HERNIA REPAIR, Past Anesthesia/Blood Transfusion Reactions: Motion Sickness Past Psychological History: No Psychological Hx Reported Smoking Status: Former smoker Past Alcohol Use History: None Reported Past Drug Use History: Marijuana - Past Family History Mother Family Medical History: Cancer Medications and Allergies Home Medications Medication Instructions Recorded Confirmed Type Budesonide-Formot 160-4.5 Mcg 2 puff INHALATION RT-BID 05/11/19 12/18/19 History [Symbicort 160-4.5 Mcg Inhaler] Cholecalciferol [Vitamin D3 (25 1,000 unit PO DAILY 05/11/19 12/18/19 History Mcg = 1000 Iu)] Ipratropium-Albuterol Nebulize 3 ml INHALATION RT-Q6H PRN 05/11/19 12/18/19 History [Duoneb 0.5 mg-3 mg/3 ml Soln] Albuterol Sulfate [Ventolin HFA] 1 - 2 puff INHALATION RT-Q6H PRN 08/31/19 12/18/19 History Nitroglycerin Sl Tabs [Nitrostat] 0.4 mg PO Q5M PRN 08/31/19 12/18/19 History Cyanocobalamin [Vitamin B-12] 1,000 mcg PO DAILY #30 tab 11/23/19 12/18/19 Rx Dabigatran [Pradaxa] 75 mg PO BID #60 cap 11/23/19 12/18/19 Rx Midodrine [ProAmatine] 5 mg PO AC-TID #90 tab 11/23/19 12/18/19 Rx Spironolactone [Aldactone] 25 mg PO DAILY #0 11/23/19 12/18/19 Rx Torsemide [Demadex] 40 mg PO DAILY PRN #0 11/23/19 12/18/19 Rx carvediloL [Coreg] 6.25 mg PO BID-W/MEALS #60 tab 11/23/19 12/18/19 Rx HYDROcodone/APAP 7.5-325MG [[place] 1 tab PO Q4H PRN 3 Days #18 tab 12/09/19 12/18/19 Rx 7.5-325] methocarbamoL [Robaxin] 500 mg PO TID PRN 12/18/19 12/18/19 History Allergies Allergy/AdvReac Type Severity Reaction Status Date / Time codeine Allergy Rash/Hives Verified 12/18/19 09:51 apixaban [From Eliquis] AdvReac Rash/Hives Verified 12/18/19 09:51 Physical Exam Vitals: Vital Signs Temp Pulse Resp BP Pulse Ox 12/18/19 11:38 79 18 121/79 98 12/18/19 10:42 89 18 125/65 98 12/18/19 10:26 98.7 F 90 18 119/70 98 12/18/19 09:49 90 18 136/80 98 12/18/19 09:25 20 12/18/19 09:24 84 18 154/93 98 12/18/19 08:59 99.2 F 97 24 131/80 97 Intake and Output 12/17/19 12/18/19 12/18/19 22:59 06:59 14:59 Output Total 400 Balance -400 Output: Urine 400 Other: # Voids 1 Weight 136.078 kg PHYSICAL EXAMINATION: GENERAL: The patient is alert and oriented x3, not in any acute distress. obese HEENT: Pupils are round and equally reacting to light. EOMI. No scleral icterus. No conjunctival pallor. Normocephalic, atraumatic. No pharyngeal erythema. No thyromegaly. CARDIOVASCULAR: S1 and S2 present. No murmurs, rubs, or gallops. PULMONARY: [place] wheezing on exam and diffuse bilateral rhonchi ABDOMEN: Soft, nontender, nondistended, normoactive bowel sounds. No palpable organomegaly. MUSCULOSKELETAL: No joint swelling or deformity. EXTREMITIES: No cyanosis, clubbing, or pedal edema. NEUROLOGICAL: Gross neurological examination did not reveal any focal deficits. SKIN: No rashes. Results CBC & Chem 7: 12/18/19 09:19 12/18/19 09:19 Labs: Abnormal Lab Results - Last 24 Hours (Table) 12/18/19 12/18/19 12/18/19 Range/Units 09:19 09:19 09:19 RBC 3.76 L (4.30-5.90) m/uL MCV 107.9 H (80.0-100.0) fL MCH 36.8 H (25.0-35.0) pg Plt Count 64 L (150-450) k/uL INR 1.2 H (<1.2) APTT 34.8 H (22.0-30.0) sec Sodium 135 L (137-145) mmol/L BUN 33 H (9-20) mg/dL Creatinine 1.74 H (0.66-1.25) mg/dL Glucose 226 H (74-99) mg/dL Total Bilirubin 3.1 H (0.2-1.3) mg/dL Albumin 3.2 L (3.5-5.0) g/dL Assessment and Plan Plan: -COPD exacerbation patient will continue on systemic steroids continue with inhalational treatments -Possibly of right lower lobe pneumonia patient will be continued on Rocephin and azithromycin for now -Chronic kidney disease stage IIIetiology of chronic kidney disease is not clear - gastroesophageal reflux disease -Hypertension -History of cirrhosis, patient is presently not only molar because of which I'll hold off on the diuretics at this time -pancytopenia believed to be secondary to cirrhosis and patient had elevated MCV which is again secondary to liver disease -History of abdominal aortic aneurysm with endovascular repair -Proximal A. fib presently rate controlled, patient is on Pradexa he'll be continued considering that patient isn't better then I'll change beta art to metoprolol rather than Coreg. had history issues with low blood pressures in the past DVT prophylaxis: Patient is on anti-correlation as mentioned above
[2019-12-18] MEDS ORDERED: INFLUENZA VACCINE (6 MOS+) 60 MCG/0.5 ML SYRINGE IM ONE (14:44)
[2019-12-18] MEDS: IPRATROPIUM-ALBUTEROL 3 ML NEB INHALATION SCH ×3 (15:21→20:58)
[2019-12-18] MEDS: MIDODRINE 5 MG TAB PO SCH (16:56)
[2019-12-18] MEDS: HYDROcodone/APAP 7.5-325MG 1 EACH TAB PO PRN (18:58)
[2019-12-18] MEDS: methylPREDNISolone SOD SUCCI 40 MG/ML 1 ML VIAL IV SCH (20:37)
[2019-12-18] MEDS: METOPROLOL TARTRATE 25 MG TAB PO SCH (20:37)
[2019-12-18] MEDS: DABIGATRAN 75 MG CAP PO SCH (20:38)
[2019-12-18 20:49] LABS: Glucose,Whole Blood 334 mg/dL (75-99)
[2019-12-18] MEDS: SYMBICORT 160-4.5 MCG INHALER INHALATION SCH (20:58)
[2019-12-18] MEDS: INSULIN ASPART (NovoLOG) 100 UNIT/ML VIAL SQ SCH (20:59)
[2019-12-18] MEDS ORDERED: INSULIN ASPART (NovoLOG) 100 UNIT/ML VIAL SQ SCH (21:00)
[2019-12-18 23:16] LABS: Hemoglobin A1C 5.6 % (4.0-6.0)
[2019-12-19 06:31] LABS: HCT 34.4 % (39.0-53.0); MCH 37.6 pg (25.0-35.0); MCHC 34.8 g/dL (31.0-37.0); MCV 108.1 fL (80.0-100.0); Macrocytosis Moderate; Mean Platelet Volume 9.8; RBC 3.19 m/uL (4.30-5.90); RDW 12.3 % (11.5-15.5); WBC 7.3 k/uL (3.8-10.6)
[2019-12-19 06:49] LABS: Glucose,Whole Blood 211 mg/dL (75-99)
[2019-12-19 07:19] LABS: Platelet Count 49 k/uL (150-450)
[2019-12-19] MEDS: AZITHROMYCIN 500 MG TAB PO SCH (07:50)
[2019-12-19] MEDS: MIDODRINE 5 MG TAB PO SCH ×3 (07:50→16:44)
[2019-12-19] MEDS: METOPROLOL TARTRATE 25 MG TAB PO SCH ×2 (07:50→22:05)
[2019-12-19] MEDS: methylPREDNISolone SOD SUCCI 40 MG/ML 1 ML VIAL IV SCH ×2 (07:50→22:06)
[2019-12-19] MEDS: INSULIN ASPART (NovoLOG) 100 UNIT/ML VIAL SQ SCH ×4 (07:50→22:06)
[2019-12-19] MEDS: DABIGATRAN 75 MG CAP PO SCH ×2 (07:51→22:05)
[2019-12-19] MEDS: IPRATROPIUM-ALBUTEROL 3 ML NEB INHALATION SCH ×5 (08:55→20:29)
[2019-12-19] MEDS: SYMBICORT 160-4.5 MCG INHALER INHALATION SCH ×2 (08:56→20:28)
--- NOTE | 2019-12-19 09:37 | P.PN ---
Subjective patient is admitted for a right lower lobe pneumonia and COPD exacerbation. Patient is still wheezing with feeling much better today probably can be discharged tomorrow on oral antibiotics and the weaning dose of steroids. Constitutional: Denied any fatigue denied any fever. Cardio vascular: denied any chest pain, palpitations Gastrointestinal denied any nausea vomiting Pulmonary: still has shortness of breath Neurologic denied any new focal deficits All inpatient medications were reviewed and appropriate changes in these medications as dictated in the interval history and assessment and plan. Objective - Vital Signs Vital signs: Vital Signs Temp 97.7 F 12/19/19 07:00 Pulse 76 12/19/19 09:08 Resp 18 12/19/19 07:00 BP 113/76 12/19/19 07:00 Pulse Ox 93 L 12/19/19 07:00 Intake & Output 12/18/19 12/19/19 12/19/19 18:59 06:59 18:59 Intake Total 240 Output Total 400 Balance -400 240 Weight 136.078 kg Intake: Oral 240 Output: Urine 400 Other: Voiding Method Toilet # Voids 1 2 - Exam PHYSICAL EXAMINATION: GENERAL: The patient is alert and oriented x3, not in any acute distress. obese HEENT: Pupils are round and equally reacting to light. EOMI. No scleral icterus. No conjunctival pallor. Normocephalic, atraumatic. No pharyngeal erythema. No thyromegaly. CARDIOVASCULAR: S1 and S2 present. No murmurs, rubs, or gallops. PULMONARY:expiratory wheezing improved rhonchi improved ABDOMEN: Soft, nontender, nondistended, normoactive bowel sounds. No palpable organomegaly. MUSCULOSKELETAL: No joint swelling or deformity. EXTREMITIES: No cyanosis, clubbing, or pedal edema. NEUROLOGICAL: Gross neurological examination did not reveal any focal deficits. SKIN: No rashes. - Labs CBC & Chem 7: 12/19/19 05:41 12/18/19 09:19 Labs: Abnormal Lab Results - Last 24 Hours (Table) 12/18/19 12/18/19 12/18/19 Range/Units 09:19 09:19 09:19 RBC 3.76 L (4.30-5.90) m/uL Hgb (13.0-17.5) gm/dL Hct (39.0-53.0) % MCV 107.9 H (80.0-100.0) fL MCH 36.8 H (25.0-35.0) pg Plt Count 64 L (150-450) k/uL INR 1.2 H (<1.2) APTT 34.8 H (22.0-30.0) sec Sodium 135 L (137-145) mmol/L BUN 33 H (9-20) mg/dL Creatinine 1.74 H (0.66-1.25) mg/dL Glucose 226 H (74-99) mg/dL POC Glucose (mg/dL) (75-99) mg/dL Total Bilirubin 3.1 H (0.2-1.3) mg/dL Albumin 3.2 L (3.5-5.0) g/dL 12/18/19 12/19/19 12/19/19 Range/Units 20:45 05:41 06:47 RBC 3.19 L (4.30-5.90) m/uL Hgb 12.0 L (13.0-17.5) gm/dL Hct 34.4 L (39.0-53.0) % MCV 108.1 H (80.0-100.0) fL MCH 37.6 H (25.0-35.0) pg Plt Count 49 L (150-450) k/uL INR (<1.2) APTT (22.0-30.0) sec Sodium (137-145) mmol/L BUN (9-20) mg/dL Creatinine (0.66-1.25) mg/dL Glucose (74-99) mg/dL POC Glucose (mg/dL) 334 H 211 H (75-99) mg/dL Total Bilirubin (0.2-1.3) mg/dL Albumin (3.5-5.0) g/dL Assessment and Plan Plan: -COPD exacerbation patient will continue on systemic steroids continue with inhalational treatments -Possibly of right lower lobe pneumonia patient will be continued on Rocephin and azithromycin for now -Chronic kidney disease stage IIIetiology of chronic kidney disease is not clear - gastroesophageal reflux disease -Hypertension -History of cirrhosis, patient is presently not volume overloaded because of which I'll hold off on the diuretics at this time, repeat BMP is pending -pancytopenia believed to be secondary to cirrhosis and patient had elevated MCV which is again secondary to liver disease -History of abdominal aortic aneurysm with endovascular repair -Proximal A. fib presently rate controlled, patient is on Pradexa , beta art was changed to metoprolol from coronary because of low blood pressure. agent had history issues with low blood pressures in the past DVT prophylaxis: Patient is on anti-correlation as mentioned above
[2019-12-19 09:48] LABS: African American GFR (CKD) 53.9 (60.0-200.0); Anion Gap 8.3 mmol/L (4.00-12.00); BUN/Creat Ratio 24.67 Ratio (12.00-20.00); Calcium 9.1 mg/dL (8.7-10.3); Carbon Dioxide 23.7 mmol/L (21.6-31.8); Non-African American GFR(CKD) 46.5 (60.0-200.0); Potassium 4.6 mmol/L (3.5-5.5)
[2019-12-19 12:01] LABS: Glucose,Whole Blood 241 mg/dL (75-99)
[2019-12-19 13:15] LABS: Appearance,Urine Clear (Clear); Bilirubin,Urine Negative (Negative); Blood,Urine Negative (Negative); Color,Urine Yellow; Glucose,Urine (UA) 3+ (Negative); Ketones,Urine Negative (Negative); Leukocyte Esterase,Urine Moderate (Negative); Mucus,Urine Rare /hpf; Nitrite,Urine Negative (Negative); Protein,Urine Negative (Negative); Specific Gravity,Urine 1.021 (1.001-1.035); Squamous Epithelial Cell,Urine 1 /hpf (0-4); Urobilinogen,Urine <2.0 mg/dL (<2.0); WBC,Urine 6 /hpf (0-5)
[2019-12-19] MEDS: HYDROcodone/APAP 7.5-325MG 1 EACH TAB PO PRN (14:44)
[2019-12-19 16:51] LABS: Glucose,Whole Blood 210 mg/dL (75-99)
[2019-12-19 20:48] LABS: Glucose,Whole Blood 322 mg/dL (75-99)
[2019-12-20 06:34] LABS: HCT 36.7 % (39.0-53.0); HGB 11.8 gm/dL (13.0-17.5); MCH 35.9 pg (25.0-35.0); MCHC 32.1 g/dL (31.0-37.0); Mean Platelet Volume 10.1; RBC 3.28 m/uL (4.30-5.90); RDW 13.1 % (11.5-15.5); WBC 8.5 k/uL (3.8-10.6)
[2019-12-20 06:35] LABS: Macrocytosis Marked; Platelet Count 61 k/uL (150-450)
[2019-12-20 06:51] LABS: Glucose,Whole Blood 278 mg/dL (75-99)
[2019-12-20] MEDS: METOPROLOL TARTRATE 25 MG TAB PO SCH (07:35)
[2019-12-20] MEDS: MIDODRINE 5 MG TAB PO SCH ×2 (07:35→11:48)
[2019-12-20] MEDS: DABIGATRAN 75 MG CAP PO SCH (07:36)
[2019-12-20] MEDS: methylPREDNISolone SOD SUCCI 40 MG/ML 1 ML VIAL IV SCH (07:36)
[2019-12-20] MEDS: AZITHROMYCIN 500 MG TAB PO SCH (07:37)
[2019-12-20] MEDS: INSULIN ASPART (NovoLOG) 100 UNIT/ML VIAL SQ SCH ×2 (07:37→11:48)
[2019-12-20] MEDS: IPRATROPIUM-ALBUTEROL 3 ML NEB INHALATION SCH ×2 (08:05→11:37)
[2019-12-20] MEDS: SYMBICORT 160-4.5 MCG INHALER INHALATION SCH (08:05)
[2019-12-20 08:18] VITALS: PULSE 72
[2019-12-20 08:23] VITALS: BP 154/85; RESP 17
[2019-12-20 08:34] VITALS: TEMP 97.6
[2019-12-20 09:28] LABS: African American GFR (CKD) 58.6 (60.0-200.0); Anion Gap 8.8 mmol/L (4.00-12.00); Calcium 8.7 mg/dL (8.7-10.3); Carbon Dioxide 23.2 mmol/L (21.6-31.8); Non-African American GFR(CKD) 50.5 (60.0-200.0); Potassium 4.6 mmol/L (3.5-5.5)
[2019-12-20 11:44] LABS: Glucose,Whole Blood 219 mg/dL (75-99)
--- NOTE | 2019-12-22 23:47 | P.DS ---
Providers Date of admission: 12/18/19 10:15 Expected date of discharge: 12/20/19 Attending physician: Juanjo Ratliff Primary care physician: Aristides Rajesh [facility] Course: Presenting complaint: Short of breath Interval history: Admitted with pneumonia and COPD exacerbation. Treated with antibiotics steroids bronchodilators. Today-improved. Feeling better. Oral intake better. Breathing better. On examination: VITAL SIGNS: Afebrile, 72, 17, 1 54 x 85, 95% room GENERAL APPEARANCE: , comfortable EYES: Pupils equal. Conjunctiva normal. NECK: JVD not raised. Mass not palpable. RESPIRATORY: Respiratory effort normal. Lungs decreased breath sound. CARDIOVASCULAR: First and second sounds normal. ABDOMEN: Soft. Liver and spleen not palpable. No tenderness. No mass palpable. PSYCHIATRY: Answering questions INVESTIGATIONS, reviewed in the clinical context: White count 8.5 hemoglobin 11.8 platelets 61 potassium 4.6 creatinine 1.4 Chest x-ray- left lower lobe infiltrate Assessment: -Left lobe pneumonia, suspect gram-negative orgasm, POA -Acute COPD exacerbation in an ex-smoker -Chronic kidney disease likely stage III from nephrosclerosis -Obesity BMI 39.6 -Chronic gout -Compensated cirrhosis secondary to hepatitis C -Pancytopenia likely due to cirrhosis, workup in place by hematology -GERD -Essential hypertension -Chronic congestive heart failure from diastolic dysfunction EF 55-60% -Abdominal aortic aneurysm endovascular repair status post -Paroxysmal atrial fibrillation- on per pradaxa by cardiology. Disposition: Home Patient Condition at Discharge: Stable Plan - Discharge Summary Discharge Rx Participant: No New Discharge Prescriptions: New Cefuroxime [Ceftin] 250 mg PO BID 3 Days #6 tab predniSONE 10 mg PO DAILY #30 tab Continue Budesonide-Formot 160-4.5 Mcg [Symbicort 160-4.5 Mcg Inhaler] 2 puff INHALATION RT-BID Cholecalciferol [Vitamin D3 (25 Mcg = 1000 Iu)] 1,000 unit PO DAILY Albuterol Sulfate [Ventolin HFA] 1 - 2 puff INHALATION RT-Q6H PRN PRN Reason: Shortness Of Breath Nitroglycerin Sl Tabs [Nitrostat] 0.4 mg PO Q5M PRN PRN Reason: Chest Pain carvediloL [Coreg] 6.25 mg PO BID-W/MEALS #60 tab Dabigatran [Pradaxa] 75 mg PO BID #60 cap Midodrine [ProAmatine] 5 mg PO AC-TID #90 tab Cyanocobalamin [Vitamin B-12] 1,000 mcg PO DAILY #30 tab HYDROcodone/APAP 7.5-325MG [[place] 7.5-325] 1 tab PO Q4H PRN 3 Days #18 tab PRN Reason: Pain methocarbamoL [Robaxin] 500 mg PO TID PRN PRN Reason: Pain Ipratropium-Albuterol Nebulize [Duoneb 0.5 mg-3 mg/3 ml Soln] 3 ml INHALATION RT-Q6H PRN #120 neb PRN Reason: Shortness Of Breath Changed Spironolactone [Aldactone] 12.5 mg PO DAILY #0 Torsemide [Demadex] 40 mg PO Q48H #0 Discharge Medication List Budesonide-Formot 160-4.5 Mcg [Symbicort 160-4.5 Mcg Inhaler] 2 puff INHALATION RT-BID 05/11/19 [History] Cholecalciferol [Vitamin D3 (25 Mcg = 1000 Iu)] 1,000 unit PO DAILY 05/11/19 [History] Albuterol Sulfate [Ventolin HFA] 1 - 2 puff INHALATION RT-Q6H PRN 08/31/19 [History] Nitroglycerin Sl Tabs [Nitrostat] 0.4 mg PO Q5M PRN 08/31/19 [History] Cyanocobalamin [Vitamin B-12] 1,000 mcg PO DAILY #30 tab 11/23/19 [Rx] Dabigatran [Pradaxa] 75 mg PO BID #60 cap 11/23/19 [Rx] Midodrine [ProAmatine] 5 mg PO AC-TID #90 tab 11/23/19 [Rx] carvediloL [Coreg] 6.25 mg PO BID-W/MEALS #60 tab 11/23/19 [Rx] HYDROcodone/APAP 7.5-325MG [[place] 7.5-325] 1 tab PO Q4H PRN 3 Days #18 tab 12/09/19 [Rx] methocarbamoL [Robaxin] 500 mg PO TID PRN 12/18/19 [History] Cefuroxime [Ceftin] 250 mg PO BID 3 Days #6 tab 12/20/19 [Rx] Ipratropium-Albuterol Nebulize [Duoneb 0.5 mg-3 mg/3 ml Soln] 3 ml INHALATION RT-Q6H PRN #120 neb 12/20/19 [Rx] Spironolactone [Aldactone] 12.5 mg PO DAILY #0 12/20/19 [Rx] Torsemide [Demadex] 40 mg PO Q48H #0 12/20/19 [Rx] predniSONE 10 mg PO DAILY #30 tab 12/20/19 [Rx] Follow up Appointment(s)/Referral(s): Aristides Mena DO [Primary Care Provider] - 12/25/19 1:00 pm Patient Instructions/Handouts: COPD (Chronic Obstructive Pulmonary Disease) (DC), Bacterial Pneumonia (DC) Activity/Diet/Wound Care/Special Instructions: Home Care Experts: #[phone] Discharge Disposition: HOME WITH HOME HEALTH SERVICES
== END 2019-12-20 12:00 | disposition home health service (06) | DRG 190 ==
LOC: EC 08:54 → 4SSUR 10:15
PROVIDERS: ADMIT Hospitalist; ATTEND Hospitalist
DX: J44.1 Chronic obstructive pulmonary disease with (acute) exacerbation (principal); J18.9 Pneumonia, unspecified organism; I13.0 Hypertensive heart and chronic kidney disease with heart failure and stage 1 through stage 4 chronic kidney disease, or unspecified chronic kidney disease; D61.818 Other pancytopenia; J44.0 Chronic obstructive pulmonary disease with (acute) lower respiratory infection; K21.9 Gastro-esophageal reflux disease without esophagitis; K74.60 Unspecified cirrhosis of liver; I48.0 Paroxysmal atrial fibrillation; I50.9 Heart failure, unspecified; N18.30 Chronic kidney disease, stage 3 unspecified; Z79.01 Long term (current) use of anticoagulants; Z79.51 Long term (current) use of inhaled steroids; Z79.899 Other long term (current) drug therapy; Z86.79 Personal history of other diseases of the circulatory system; Z87.891 Personal history of nicotine dependence; Z88.5 Allergy status to narcotic agent; Z88.8 Allergy status to other drugs, medicaments and biological substances; Z98.890 Other specified postprocedural states; Z80.9 Family history of malignant neoplasm, unspecified
CPT/HCPCS: 36415; 71046; 80048; 80053; 81001; 83036; 83605; 83735; 83880; 84484; 85025; 85027; 85610; 85730; 87040; 93005; 94640; 96365; 96366; 96375; 99285

== ENCOUNTER 2020-01-09 10:34 | Emergency (ER) | payer MEDICARE ==
[2020-01-09 11:40] LABS: Basophils % (A) 0 %; Eosinophils # (A) 0.1 k/uL (0-0.7); Eosinophils % (A) 3 %; HCT 37.6 % (39.0-53.0); HGB 12.4 gm/dL (13.0-17.5); Lymphocytes # (A) 0.8 k/uL (1.0-4.8); Lymphocytes % (A) 21 %; MCH 35.6 pg (25.0-35.0); MCHC 32.9 g/dL (31.0-37.0); MCV 108.3 fL (80.0-100.0); Macrocytosis Moderate; Mean Platelet Volume 9.2; Monocytes # (A) 0.3 k/uL (0-1.0); Monocytes % (A) 8 %; Neutrophils # (A) 2.7 k/uL (1.3-7.7); Neutrophils % (A) 66 %; RBC 3.48 m/uL (4.30-5.90); RDW 13.1 % (11.5-15.5); WBC 4.1 k/uL (3.8-10.6)
[2020-01-09 11:42] LABS: Platelet Count 42 k/uL (150-450)
[2020-01-09 11:58] LABS: Calcium 8.9 mg/dL (8.4-10.2); Total Bilirubin 1.5 mg/dL (0.2-1.3); Total Protein 6.1 g/dL (6.3-8.2)
[2020-01-09 12:09] LABS: Partial Thromboplastin Time 26.5 sec (22.0-30.0); Potassium 4.5 mmol/L (3.5-5.1); Prothrombin Time 10.2 sec (9.0-12.0)
--- NOTE | 2020-01-09 12:26 | ED ---
General Adult HPI - General Chief complaint: Recheck/Abnormal Lab/Rx Stated complaint: lab recheck Time Seen by Provider: 01/09/20 10:45 Source: patient, RN notes reviewed, old records reviewed Mode of arrival: ambulatory Limitations: no limitations - History of Present Illness Initial comments: This is a 69-year-old male who presents in states he's here to give platelets. I spoke with Dr. Matthews and he wanted the patient to get platelets because the pa tient needs to be on anticoagulants and the patient's platelets are below 50. Patient is not having any sites of bleeding. Patient has no complaints today. Patient denies any chest pain difficulty breathing shortness of breath. Patient denies any ecchymosis or petechiae. Patient denies any headache patient denies numbness weakness. Patient is without any complaints - Related Data Home Medications Medication Instructions Recorded Confirmed Budesonide-Formot 160-4.5 Mcg 2 puff INHALATION RT-BID 05/11/19 01/09/20 [Symbicort 160-4.5 Mcg Inhaler] Cholecalciferol [Vitamin D3 (25 1,000 unit PO DAILY 05/11/19 01/09/20 Mcg = 1000 Iu)] Albuterol Sulfate [Ventolin HFA] 1 - 2 puff INHALATION RT-Q6H PRN 08/31/19 01/09/20 Nitroglycerin Sl Tabs [Nitrostat] 0.4 mg PO Q5M PRN 08/31/19 01/09/20 methocarbamoL [Robaxin] 500 mg PO TID PRN 12/18/19 01/09/20 Acetaminophen Tab [Tylenol] 325 mg PO DAILY PRN 01/09/20 01/09/20 Folic Acid 1 mg PO DAILY 01/09/20 01/09/20 Spironolactone [Aldactone] 50 mg PO DAILY 01/09/20 01/09/20 Thiamine [Vitamin B-1] 50 mg PO DAILY 01/09/20 01/09/20 Previous Rx's Medication Instructions Recorded Cyanocobalamin [Vitamin B-12] 1,000 mcg PO DAILY #30 tab 11/23/19 Dabigatran [Pradaxa] 75 mg PO BID #60 cap 11/23/19 Midodrine [ProAmatine] 5 mg PO AC-TID #90 tab 11/23/19 carvediloL [Coreg] 6.25 mg PO BID-W/MEALS #60 tab 11/23/19 HYDROcodone/APAP 7.5-325MG [[place] 1 tab PO Q4H PRN 3 Days #18 tab 12/09/19 7.5-325] Ipratropium-Albuterol Nebulize 3 ml INHALATION RT-Q6H PRN #120 neb 12/20/19 [Duoneb 0.5 mg-3 mg/3 ml Soln] Torsemide [Demadex] 40 mg PO Q48H #0 12/20/19 Allergies Allergy/AdvReac Type Severity Reaction Status Date / Time codeine Allergy Rash/Hives Verified 01/09/20 11:37 ibuprofen Allergy Unknown Verified 01/09/20 11:37 apixaban [From Eliquis] AdvReac Rash/Hives Verified 01/09/20 11:37 Review of Systems ROS Statement: Those systems with pertinent positive or pertinent negative responses have been documented in the HPI. ROS Other: All systems not noted in ROS Statement are negative. Past Medical History Past Medical History: Atrial Fibrillation, Asthma, Heart Failure, COPD, GERD/Reflux, Hypertension, Liver Disease, Osteoarthritis (OA), Pneumonia, Renal Disease Additional Past Medical History / Comment(s): Pt recently admitted to [facility] with lower blood pressure/L wrist pain. Other hx: Pt states L wrist pain now goes all the way up L arm, recent AAA surgery, chronic chf, bronchitis, liver cirrhosis, hepatitis C treated 3 times, CKD stage III, anemia, thrombocytopenia, pancytopenia-pt recently saw Dr. Matthews, pt states recently told he has diabetes, numbness R lower leg, chronic gout bilateral feet, UTI, chronic low back pain, cervical pain History of Any Multi-Drug Resistant Organisms: None Reported Past Surgical History: Heart Catheterization, Hernia Repair, Orthopedic Surgery Additional Past Surgical History / Comment(s): Percutaneous endovascjlar abdominal aortic anuerysm repair, EGD, colonoscopies, bilateral cataract removals/lens implants, R shoulder rotator cuff repair, umbilical hernia repair. Past Anesthesia/Blood Transfusion Reactions: Motion Sickness Additional Past Anesthesia/Blood Transfusion Reaction / Comment(s): Pt has received blood without reaction. Past Psychological History: No Psychological Hx Reported Smoking Status: Former smoker Past Alcohol Use History: None Reported Past Drug Use History: Marijuana - Past Family History Mother Family Medical History: Cancer Additional Family Medical History / Comment(s): Mother of liver cancer. Father Family Medical History: Myocardial Infarction (MD) Additional Family Medical History / Comment(s): Father of a MD at the age of 48yrs. General Exam - General Exam Comments Initial Comments: GENERAL: Patient is well-developed and well-nourished. Patient is nontoxic and well- hydrated and is in no acute distress. ENT: Neck is soft and supple. No significant lymphadenopathy is noted. Oropharynx is clear. Moist mucous membranes. Neck has full range of motion without eliciting any pain. EYES: The sclera were anicteric and conjunctiva were pink and moist. Extraocular movements were intact and pupils were equal round and reactive to light. Eyelids were unremarkable. PULMONARY: Unlabored respirations. Good breath sounds bilaterally. No audible rales rhonchi or wheezing was noted. CARDIOVASCULAR: There is a regular rate and rhythm without any murmurs gallops or rubs. ABDOMEN: Soft and nontender with normal bowel sounds. SKIN: Skin is clear with no lesions or rashes and otherwise unremarkable. NEUROLOGIC: Patient is alert and oriented x3. Cranial nerves II through XII are grossly intact. Motor and sensory are also intact. Normal speech, volume and content. Symmetrical smile. MUSCULOSKELETAL: Normal extremities with adequate strength and full range of motion. LYMPHATICS: No significant lymphadenopathy is noted PSYCHIATRIC: Normal psychiatric evaluation. Limitations: no limitations Course Vital Signs 01/09/20 01/09/20 01/09/20 10:46 13:07 13:17 Temperature 98.5 F 97.7 F 98.0 F Pulse Rate 107 H 100 103 H Respiratory 18 18 18 Rate Blood Pressure 126/87 119/82 120/81 O2 Sat by Pulse 99 96 97 Oximetry 01/09/20 13:47 Temperature 98.1 F Pulse Rate 98 Respiratory 189 H Rate Blood Pressure 130/89 O2 Sat by Pulse 96 Oximetry Medical Decision Making - Medical Decision Making Patient received one unit of platelets Patient remained asymptomatic. - Lab Data Result diagrams: 01/09/20 11:32 01/09/20 11:32 Lab Results 01/09/20 01/09/20 01/09/20 Range/Units 11:32 11:32 11:32 WBC 4.1 (3.8-10.6) k/uL RBC 3.48 L (4.30-5.90) m/uL Hgb 12.4 L (13.0-17.5) gm/dL Hct 37.6 L (39.0-53.0) % MCV 108.3 H (80.0-100.0) fL MCH 35.6 H (25.0-35.0) pg MCHC 32.9 (31.0-37.0) g/dL RDW 13.1 (11.5-15.5) % Plt Count 42 L (150-450) k/uL Neutrophils % 66 % Lymphocytes % 21 % Monocytes % 8 % Eosinophils % 3 % Basophils % 0 % Neutrophils # 2.7 (1.3-7.7) k/uL Lymphocytes # 0.8 L (1.0-4.8) k/uL Monocytes # 0.3 (0-1.0) k/uL Eosinophils # 0.1 (0-0.7) k/uL Basophils # 0.0 (0-0.2) k/uL Macrocytosis Moderate PT 10.2 (9.0-12.0) sec INR 1.0 (<1.2) APTT 26.5 (22.0-30.0) sec Sodium 131 L (137-145) mmol/L Potassium 4.5 (3.5-5.1) mmol/L Chloride 103 (98-107) mmol/L Carbon Dioxide 25 (22-30) mmol/L Anion Gap 3 mmol/L BUN 24 H (9-20) mg/dL Creatinine 1.29 H (0.66-1.25) mg/dL Est GFR (CKD-EPI)AfAm 65 (>60 ml/min/1.73 sqM) Est GFR (CKD-EPI)NonAf 56 (>60 ml/min/1.73 sqM) Glucose 178 H (74-99) mg/dL Calcium 8.9 (8.4-10.2) mg/dL Total Bilirubin 1.5 H (0.2-1.3) mg/dL AST 45 (17-59) U/L ALT 31 (4-49) U/L Alkaline Phosphatase 103 (38-126) U/L Total Protein 6.1 L (6.3-8.2) g/dL Albumin 3.0 L (3.5-5.0) g/dL Transfuse Platelets 11/04/20 Range/Units 12:55 WBC (3.8-10.6) k/uL RBC (4.30-5.90) m/uL Hgb (13.0-17.5) gm/dL Hct (39.0-53.0) % MCV (80.0-100.0) fL MCH (25.0-35.0) pg MCHC (31.0-37.0) g/dL RDW (11.5-15.5) % Plt Count (150-450) k/uL Neutrophils % % Lymphocytes % % Monocytes % % Eosinophils % % Basophils % % Neutrophils # (1.3-7.7) k/uL Lymphocytes # (1.0-4.8) k/uL Monocytes # (0-1.0) k/uL Eosinophils # (0-0.7) k/uL Basophils # (0-0.2) k/uL Macrocytosis PT (9.0-12.0) sec INR (<1.2) APTT (22.0-30.0) sec Sodium (137-145) mmol/L Potassium (3.5-5.1) mmol/L Chloride (98-107) mmol/L Carbon Dioxide (22-30) mmol/L Anion Gap mmol/L BUN (9-20) mg/dL Creatinine (0.66-1.25) mg/dL Est GFR (CKD-EPI)AfAm (>60 ml/min/1.73 sqM) Est GFR (CKD-EPI)NonAf (>60 ml/min/1.73 sqM) Glucose (74-99) mg/dL Calcium (8.4-10.2) mg/dL Total Bilirubin (0.2-1.3) mg/dL AST (17-59) U/L ALT (4-49) U/L Alkaline Phosphatase (38-126) U/L Total Protein (6.3-8.2) g/dL Albumin (3.5-5.0) g/dL Transfuse Platelets 01/09/20 Disposition Clinical Impression: Thrombocytopenia Disposition: HOME SELF-CARE Condition: Good Instructions (If sedation given, give patient instructions): Thrombocytopenia (ED) Is patient prescribed a controlled substance at d/c from ED?: No Referrals: Daniel Matthews MD [STAFF PHYSICIAN] - 1-2 days
[2020-01-09 13:56] VITALS: BP 130/89; PULSE 98; TEMP 98.1
[2020-01-09 14:07] VITALS: RESP 18
== END 2020-01-09 14:34 | disposition home or self-care (01) ==
LOC: EC 10:34
DX: D69.6 Thrombocytopenia, unspecified (principal); J44.9 Chronic obstructive pulmonary disease, unspecified; I13.10 Hypertensive heart and chronic kidney disease without heart failure, with stage 1 through stage 4 chronic kidney disease, or unspecified chronic kidney disease; I50.9 Heart failure, unspecified; N18.30 Chronic kidney disease, stage 3 unspecified; Z88.5 Allergy status to narcotic agent; Z88.6 Allergy status to analgesic agent; Z88.8 Allergy status to other drugs, medicaments and biological substances; Z87.891 Personal history of nicotine dependence; Z95.5 Presence of coronary angioplasty implant and graft; Z98.42 Cataract extraction status, left eye; Z98.41 Cataract extraction status, right eye; Z96.1 Presence of intraocular lens
CPT/HCPCS: 99283; 36415; 80053; 85025; 85610; 85730; P9035

== ENCOUNTER 2020-03-08 20:27 | Inpatient (IN) | payer MEDICARE ==
--- NOTE | 2020-03-08 20:44 | ED ---
General Adult HPI - General Stated complaint: Feet/Leg Swelling Time Seen by Provider: 03/08/20 20:44 - History of Present Illness Initial comments: Patient with history of hepatitis C, heart failure, COPD and liver cirrhosis presenting to the emergency department with a chief complaint of leg swelling. Patient states he saw , the sprinkling system irrigator, 3 days ago for the bilateral lower extremity edema and had his Lasix doubled from 40 mg to 80 mg only for 3 days. Patient states yesterday was the last day of the medication, however the swelling has not improved whatsoever. The sprinkling system irrigator advised them to come to the emergency department if there is no improvement in the swelling so he can be admitted for further medical management. Patient states he's also had decreased urinary output over the last 3 months. Patient also reports feeling a bit short of breath and wheezy. States she takes he uses DuoNeb nebulizer every 6 at home but is not oxygen dependent. He denies any chest pain, nausea, vomiting, abdominal pain. - Related Data Home Medications Medication Instructions Recorded Confirmed Budesonide-Formot 160-4.5 Mcg 2 puff INHALATION RT-BID 05/11/19 03/08/20 [Symbicort 160-4.5 Mcg Inhaler] Cholecalciferol [Vitamin D3 (25 1,000 unit PO DAILY 05/11/19 03/08/20 Mcg = 1000 Iu)] Albuterol Sulfate [Ventolin HFA] 1 - 2 puff INHALATION RT-Q6H PRN 08/31/19 03/08/20 Nitroglycerin Sl Tabs [Nitrostat] 0.4 mg PO Q5M PRN 08/31/19 03/08/20 Folic Acid 1 mg PO DAILY 01/09/20 03/08/20 Spironolactone [Aldactone] 50 mg PO DAILY 01/09/20 03/08/20 Thiamine [Vitamin B-1] 50 mg PO DAILY 01/09/20 03/08/20 Torsemide [Demadex] 40 mg PO DAILY 03/08/20 03/08/20 Previous Rx's Medication Instructions Recorded Cyanocobalamin [Vitamin B-12] 1,000 mcg PO DAILY #30 tab 11/23/19 carvediloL [Coreg] 6.25 mg PO BID-W/MEALS #60 tab 11/23/19 Ipratropium-Albuterol Nebulize 3 ml INHALATION RT-Q6H PRN #120 neb 12/20/19 [Duoneb 0.5 mg-3 mg/3 ml Soln] Allergies Allergy/AdvReac Type Severity Reaction Status Date / Time codeine Allergy Rash/Hives Verified 03/08/20 22:27 ibuprofen Allergy Unknown Verified 03/08/20 22:27 apixaban [From Eliquis] AdvReac Rash/Hives Verified 03/08/20 22:27 dabigatran etexilate AdvReac Rash/Hives Verified 03/08/20 22:27 [From Pradaxa] midodrine AdvReac Rash/Hives Verified 03/08/20 22:27 Review of Systems ROS Statement: Those systems with pertinent positive or pertinent negative responses have been documented in the HPI. ROS Other: All systems not noted in ROS Statement are negative. Past Medical History Past Medical History: Atrial Fibrillation, Asthma, Heart Failure, COPD, GERD/Reflux, Hypertension, Liver Disease, Osteoarthritis (OA), Pneumonia, Renal Disease Additional Past Medical History / Comment(s): Pt recently admitted to [facility] with lower blood pressure/L wrist pain. Other hx: Pt states L wrist pain now goes all the way up L arm, recent AAA surgery, chronic chf, bronchitis, liver cirrhosis, hepatitis C treated 3 times, CKD stage III, anemia, thrombocytopenia, pancytopenia-pt recently saw Dr. Matthews, pt states recently told he has diabetes, numbness R lower leg, chronic gout bilateral feet, UTI, chronic low back pain, cervical pain History of Any Multi-Drug Resistant Organisms: None Reported Past Surgical History: Heart Catheterization, Hernia Repair, Orthopedic Surgery Additional Past Surgical History / Comment(s): Percutaneous endovascjlar abdominal aortic anuerysm repair, EGD, colonoscopies, bilateral cataract removals/lens implants, R shoulder rotator cuff repair, umbilical hernia repair. Past Anesthesia/Blood Transfusion Reactions: Motion Sickness Additional Past Anesthesia/Blood Transfusion Reaction / Comment(s): Pt has received blood without reaction. Past Psychological History: No Psychological Hx Reported Smoking Status: Former smoker Past Alcohol Use History: None Reported Past Drug Use History: Marijuana - Past Family History Mother Family Medical History: Cancer Additional Family Medical History / Comment(s): Mother of liver cancer. Father Family Medical History: Myocardial Infarction ([place]) Additional Family Medical History / Comment(s): Father of a AR at the age of 48yrs. General Exam Limitations: no limitations General appearance: alert, in no apparent distress, obese Head exam: Present: atraumatic, normocephalic, normal inspection Eye exam: Present: normal appearance, PERRL, EOMI. Absent: scleral icterus Pupils: Present: normal accommodation ENT exam: Present: normal exam, normal oropharynx, mucous membranes moist, TM's normal bilaterally, normal external ear exam Neck exam: Present: normal inspection, full ROM. Absent: tenderness Respiratory exam: Present: wheezes (Diffuse bilateral wheezing). Absent: respiratory distress, chest wall tenderness, accessory muscle use, decreased breath sounds Cardiovascular Exam: Present: regular rate, normal rhythm, normal heart sounds. Absent: systolic murmur, diastolic murmur GI/Abdominal exam: Present: soft. Absent: distended, tenderness, guarding, rebound Extremities exam: Present: normal inspection (No overlying cellulitic skin changes), full ROM, normal capillary refill, pedal edema (+3 pitting edema bilaterally. ). Absent: tenderness, joint swelling Back exam: Present: normal inspection, full ROM. Absent: tenderness, CVA t enderness (R), CVA tenderness (L) Neurological exam: Present: alert, oriented X3 Psychiatric exam: Present: normal affect, normal mood Skin exam: Present: warm, dry, intact, normal color Course Vital Signs 03/08/20 03/08/20 03/08/20 20:45 21:20 21:33 Temperature 98.2 F Pulse Rate 81 95 95 Respiratory 18 Rate Blood Pressure 128/80 O2 Sat by Pulse 96 Oximetry 03/08/20 22:37 Temperature Pulse Rate 90 Respiratory 20 Rate Blood Pressure 98/71 O2 Sat by Pulse 96 Oximetry EKG Findings - EKG Comments: EKG Findings:: Sinus rhythm left axis deviation,. Ventricular rate 76, OH 162, QRS 92, QTC 438. Medical Decision Making - Medical Decision Making 69-year-old male with history of hepatitis C, liver cirrhosis, COPD, heart failure presenting to the emergency room with a chief complaint of leg swelling. On physical examination, patient has +2 bilateral lower extremity edema. No signs of cellulitis. Patient was also wheezing bilaterally on auscultation. Patient was given a DuoNeb treatment. He did report improvement in his symptoms. The wheezing has also improved although still persistent. Initial troponin is negative. BNP is 356. The urine of 32 and creatinine of 1.8. Patient was given 40 mg of IV Lasix. Patient will be admitted for further medical management. I spoke with who will admit. Case discussed with Dr Myers Cardiology consulted Nephrology consulted - Lab Data Result diagrams: 03/08/20 21:05 03/08/20 21:05 Lab Results 03/08/20 03/08/20 03/08/20 Range/Units 21:05 21:05 21:05 WBC 5.7 (3.8-10.6) k/uL RBC 3.55 L (4.30-5.90) m/uL Hgb 12.7 L (13.0-17.5) gm/dL Hct 36.8 L (39.0-53.0) % MCV 103.8 H (80.0-100.0) fL MCH 35.9 H (25.0-35.0) pg MCHC 34.6 (31.0-37.0) g/dL RDW 15.5 (11.5-15.5) % Plt Count 62 L (150-450) k/uL MPV 9.1 Neutrophils % 54 % Lymphocytes % 26 % Monocytes % 11 % Eosinophils % 7 % Basophils % 1 % Neutrophils # 3.0 (1.3-7.7) k/uL Lymphocytes # 1.5 (1.0-4.8) k/uL Monocytes # 0.6 (0-1.0) k/uL Eosinophils # 0.4 (0-0.7) k/uL Basophils # 0.1 (0-0.2) k/uL Manual Slide Review Performed Macrocytosis Moderate PT (9.0-12.0) sec INR (<1.2) APTT (22.0-30.0) sec Sodium (137-145) mmol/L Potassium (3.5-5.1) mmol/L Chloride (98-107) mmol/L Carbon Dioxide (22-30) mmol/L Anion Gap mmol/L BUN (9-20) mg/dL Creatinine (0.66-1.25) mg/dL Est GFR (CKD-EPI)AfAm (>60 ml/min/1.73 sqM) Est GFR (CKD-EPI)NonAf (>60 ml/min/1.73 sqM) Glucose (74-99) mg/dL Calcium (8.4-10.2) mg/dL Magnesium (1.6-2.3) mg/dL Total Bilirubin (0.2-1.3) mg/dL AST (17-59) U/L ALT (4-49) U/L Alkaline Phosphatase (38-126) U/L Troponin I <0.012 (0.000-0.034) ng/mL NT-Pro-B Natriuret Pep 356 pg/mL Total Protein (6.3-8.2) g/dL Albumin (3.5-5.0) g/dL 03/08/20 03/08/20 Range/Units 21:05 21:54 WBC (3.8-10.6) k/uL RBC (4.30-5.90) m/uL Hgb (13.0-17.5) gm/dL Hct (39.0-53.0) % MCV (80.0-100.0) fL MCH (25.0-35.0) pg MCHC (31.0-37.0) g/dL RDW (11.5-15.5) % Plt Count (150-450) k/uL MPV Neutrophils % % Lymphocytes % % Monocytes % % Eosinophils % % Basophils % % Neutrophils # (1.3-7.7) k/uL Lymphocytes # (1.0-4.8) k/uL Monocytes # (0-1.0) k/uL Eosinophils # (0-0.7) k/uL Basophils # (0-0.2) k/uL Manual Slide Review Macrocytosis PT 12.7 H (9.0-12.0) sec INR 1.3 H (<1.2) APTT 35.0 H (22.0-30.0) sec Sodium 134 L (137-145) mmol/L Potassium 4.0 (3.5-5.1) mmol/L Chloride 105 (98-107) mmol/L Carbon Dioxide 24 (22-30) mmol/L Anion Gap 5 mmol/L BUN 32 H (9-20) mg/dL Creatinine 1.80 H (0.66-1.25) mg/dL Est GFR (CKD-EPI)AfAm 43 (>60 ml/min/1.73 sqM) Est GFR (CKD-EPI)NonAf 37 (>60 ml/min/1.73 sqM) Glucose 164 H (74-99) mg/dL Calcium 8.9 (8.4-10.2) mg/dL Magnesium 2.0 (1.6-2.3) mg/dL Total Bilirubin 1.8 H (0.2-1.3) mg/dL AST 41 (17-59) U/L ALT 21 (4-49) U/L Alkaline Phosphatase 144 H (38-126) U/L Troponin I (0.000-0.034) ng/mL NT-Pro-B Natriuret Pep pg/mL Total Protein 7.4 (6.3-8.2) g/dL Albumin 3.4 L (3.5-5.0) g/dL Disposition Clinical Impression: Bilateral lower extremity edema, COPD exacerbation Disposition: ADMITTED IP TO THIS HOSP Condition: Fair Is patient prescribed a controlled substance at d/c from ED?: No Referrals: Aristides Mena DO [Primary Care Provider] - 1-2 days Time of Disposition: 22:58
[2020-03-08] MEDS ORDERED: IPRATROPIUM-ALBUTEROL 3 ML NEB INHALATION STA (21:02)
[2020-03-08 21:15] LABS: Basophils # (A) 0.1 k/uL (0-0.2); Basophils % (A) 1 %; Eosinophils # (A) 0.4 k/uL (0-0.7); Eosinophils % (A) 7 %; HCT 36.8 % (39.0-53.0); HGB 12.7 gm/dL (13.0-17.5); Lymphocytes # (A) 1.5 k/uL (1.0-4.8); Lymphocytes % (A) 26 %; MCH 35.9 pg (25.0-35.0); MCHC 34.6 g/dL (31.0-37.0); MCV 103.8 fL (80.0-100.0); Macrocytosis Moderate; Mean Platelet Volume 9.1; Monocytes # (A) 0.6 k/uL (0-1.0); Monocytes % (A) 11 %; Neutrophils % (A) 54 %; RBC 3.55 m/uL (4.30-5.90); RDW 15.5 % (11.5-15.5); WBC 5.7 k/uL (3.8-10.6)
--- NOTE | 2020-03-08 21:23 | XR ---
EXAMINATION TYPE: XR chest 2V DATE OF EXAM: 03/08/2020 COMPARISON: 12/18/2019 HISTORY: Short of breath. Chest pain TECHNIQUE: FINDINGS: Heart and mediastinum are normal. Lungs are clear. Costophrenic angles are clear. There are no hilar masses. Bony thorax is intact. IMPRESSION: No active cardiopulmonary disease. Normal heart. There is clearing of the minimal atelect asis at the lung bases compared to old exam.
[2020-03-08 21:45] LABS: Platelet Count 62 k/uL (150-450)
[2020-03-08 22:04] LABS: Albumin 3.4 g/dL (3.5-5.0); Calcium 8.9 mg/dL (8.4-10.2); Total Bilirubin 1.8 mg/dL (0.2-1.3); Total Protein 7.4 g/dL (6.3-8.2)
[2020-03-08 22:19] LABS: INR 1.3 (<1.2); Prothrombin Time 12.7 sec (9.0-12.0)
[2020-03-08] MEDS ORDERED: FUROSEMIDE 10 MG/ML 4 ML VIAL IV STA (22:49)
[2020-03-08] MEDS ORDERED: HYDROmorphone 0.5 MG/0.5 ML SYRINGE IVP PRN (22:52)
[2020-03-08] MEDS ORDERED: traMADol 50 MG TAB PO PRN (22:52)
[2020-03-08] MEDS ORDERED: ONDANSETRON 4 MG/2 ML VIAL IVP PRN (22:52)
[2020-03-08] MEDS ORDERED: NALOXONE 0.4 MG/ML 1 ML VIAL IV PRN (22:52)
[2020-03-08] MEDS ORDERED: LORazepam 2 MG/ML INJ IV PRN (22:52)
[2020-03-09] MEDS: IPRATROPIUM-ALBUTEROL 3 ML NEB INHALATION SCH ×4 (04:34→20:00)
[2020-03-09] MEDS: carvediloL 6.25 MG TAB PO SCH ×2 (06:43→16:32)
--- NOTE | 2020-03-09 08:32 | P.CRDCN ---
History of Present Illness History of present illness: This is Dr. Thorpe dictating a consult on this patient The patient was interviewed and examined IMPRESSION / ASSESSMENT: Patient presenting with lower extremity edema that has not responded to increasing the dose of the medics last week Mildly worsened renal function Shortness of breath with exertion History of nonischemic cardio myopathy which is improved with medical treatment Minimal coronary artery disease by Issa catheterization this year LV function has normalized by 2-D echo History of paroxysmal atrial fibrillation, was on Pradaxa him a on hold on account of thrombocytopenia, history of splenomegaly No evidence for acute myocardial infarction, BNP minimally increased This is most likely right heart failure. On examination is reduced air entry bilaterally with bilateral rhonchi PLAN: Lower extremity venous Dopplers bilaterally VQ scan Continue carvedilol I may consider doing a right heart cath on him if DVT workup is negative HPI Patient came in complaining of persistent lower extremity edema despite increasing diuretics last week He remained short of breath if he walks across the hallway but at rest he is comfortable He denies any chest discomfort dizziness or lightheadedness From a respiratory standpoint the patient looks comfortable at rest. When I saw him in the office on Tuesday he was visibly short of breath at rest However lower extremity edema has not improved despite doubling the dose of Demadex to 40 mg twice daily for 3 days ROS: No fever chills or rigors, no cough, phlegm or expectoration, no nausea, vomiting or diarrhea, no hematuria, dysuria, no musculoskeletal complaints, no strokes or seizures, no skin lesions. EXAMINATION: Blood pressure 106/54 mmHg, pulse rate in the 90s, afebrile Impression looks recently comfortable today REVIEW OF LABS, ECG & MEDICAL DATA Labs reviewed CBC shows hemoglobin of 12.7, platelet count of 62,000 BMP shows sodium 134 potassium 4.0, BUN 52 and creatinine 1.8 SGOT SGPT are normal, alkaline phosphatase mildly increased Cardiac enzymes normal 1 NT proBNP greater than 56 Low albumin Twelve-lead EKG shows sinus mechanism with normal ST segment Past history of abdominal aortic aneurysm status post percutaneous repair History of hypertension History of chronic kidney disease History of paroxysmal atrial fibrillation started from Pradaxa the patient has to monocytopenia History of hepatitis C currently SGOT and SGPT are normal Past Medical History Past Medical History: Atrial Fibrillation, Asthma, Heart Failure, COPD, G ERD/Reflux, Hypertension, Liver Disease, Osteoarthritis (OA), Pneumonia, Renal Disease Additional Past Medical History / Comment(s): Pt recently admitted to [facility] with lower blood pressure/L wrist pain. Other hx: Pt states L wrist pain now goes all the way up L arm, recent AAA surgery, chronic chf, bronchitis, liver cirrhosis, hepatitis C treated 3 times, CKD stage III, anemia, thrombocytopenia, pancytopenia-pt recently saw Dr. Matthews, pt states recently told he has diabetes, numbness R lower leg, chronic gout bilateral feet, UTI, chronic low back pain, cervical pain History of Any Multi-Drug Resistant Organisms: None Reported Past Surgical History: Heart Catheterization, Hernia Repair, Orthopedic Surgery Additional Past Surgical History / Comment(s): Percutaneous endovascjlar abdominal aortic anuerysm repair, EGD, colonoscopies, bilateral cataract removals/lens implants, R shoulder rotator cuff repair, umbilical hernia repair. Past Anesthesia/Blood Transfusion Reactions: Motion Sickness Additional Past Anesthesia/Blood Transfusion Reaction / Comment(s): Pt has received blood without reaction. Past Psychological History: No Psychological Hx Reported Additional Psychological History / Comment(s): Pt states depression comes and goes. Pt lives alone with a dog and cat. He is currently recieiving home care thru [facility]. He has been using a cane. He can drive. Smoking Status: Former smoker Past Alcohol Use History: None Reported Additional Past Alcohol Use History / Comment(s): Pt started smoking in 1963 and quit in 2004. He has not drank since 2004-he drank occasionally. Past Drug Use History: Marijuana Additional Drug Use History / Comment(s): PT states he was smoking 3-4 joints a day but not lately. He aslo uses CBD oil - Past Family History Mother Family Medical History: Cancer Additional Family Medical History / Comment(s): Mother of liver cancer. Father Family Medical History: Myocardial Infarction ([place]) Additional Family Medical History / Comment(s): Father of a [place] at the age of 48yrs. Medications and Allergies Home Medications Medication Instructions Recorded Confirmed Type Budesonide-Formot 160-4.5 Mcg 2 puff INHALATION RT-BID 05/11/19 03/08/20 History [Symbicort 160-4.5 Mcg Inhaler] Cholecalciferol [Vitamin D3 (25 1,000 unit PO DAILY 05/11/19 03/08/20 History Mcg = 1000 Iu)] Albuterol Sulfate [Ventolin HFA] 1 - 2 puff INHALATION RT-Q6H PRN 08/31/19 03/08/20 History Nitroglycerin Sl Tabs [Nitrostat] 0.4 mg PO Q5M PRN 08/31/19 03/08/20 History Cyanocobalamin [Vitamin B-12] 1,000 mcg PO DAILY #30 tab 11/23/19 03/08/20 Rx carvediloL [Coreg] 6.25 mg PO BID-W/MEALS #60 tab 11/23/19 03/08/20 Rx Ipratropium-Albuterol Nebulize 3 ml INHALATION RT-Q6H PRN #120 neb 12/20/19 03/08/20 Rx [Duoneb 0.5 mg-3 mg/3 ml Soln] Folic Acid 1 mg PO DAILY 01/09/20 03/08/20 History Spironolactone [Aldactone] 50 mg PO DAILY 01/09/20 03/08/20 History Thiamine [Vitamin B-1] 50 mg PO DAILY 01/09/20 03/08/20 History Torsemide [Demadex] 40 mg PO DAILY 03/08/20 03/08/20 History Allergies Allergy/AdvReac Type Severity Reaction Status Date / Time codeine Allergy Rash/Hives Verified 03/08/20 22:27 ibuprofen Allergy Unknown Verified 03/08/20 22:27 apixaban [From Eliquis] AdvReac Rash/Hives Verified 03/08/20 22:27 dabigatran etexilate AdvReac Rash/Hives Verified 03/08/20 22:27 [From Pradaxa] midodrine AdvReac Rash/Hives Verified 03/08/20 22:27 Physical Exam Vitals: Vital Signs Temp Pulse Pulse Resp BP BP Pulse Ox 03/09/20 08:05 88 18 03/09/20 07:55 82 18 03/09/20 07:42 97.7 F 89 16 106/57 94 L 03/09/20 06:41 94 106/54 03/09/20 04:43 84 03/09/20 04:34 80 03/09/20 03:06 97.9 F 89 20 110/60 95 03/09/20 03:00 20 03/08/20 23:53 96.6 F L 96 18 124/71 98 03/08/20 22:57 95 18 126/87 97 03/08/20 22:37 90 20 98/71 96 03/08/20 21:33 95 03/08/20 21:20 95 03/08/20 20:45 98.2 F 81 18 128/80 96 Intake and Output 03/08/20 03/09/20 03/09/20 22:59 06:59 14:59 Intake Total 480 240 Output Total 400 Balance 80 240 Intake: Oral 480 240 Output: Urine 400 Other: Voiding Method Toilet Urinal Weight 143.335 kg 143.335 kg Results 03/08/20 21:05 03/08/20 21:05 Cardiac Enzymes 03/08/20 03/08/20 Range/Units 21:05 21:05 AST 41 (17-59) U/L Troponin I <0.012 (0.000-0.034) ng/mL Coagulation 03/08/20 Range/Units 21:54 PT 12.7 H (9.0-12.0) sec APTT 35.0 H (22.0-30.0) sec CBC 03/08/20 Range/Units 21:05 WBC 5.7 (3.8-10.6) k/uL RBC 3.55 L (4.30-5.90) m/uL Hgb 12.7 L (13.0-17.5) gm/dL Hct 36.8 L (39.0-53.0) % Plt Count 62 L (150-450) k/uL Comprehensive Metabolic Panel 03/08/20 Range/Units 21:05 Sodium 134 L (137-145) mmol/L Potassium 4.0 (3.5-5.1) mmol/L Chloride 105 (98-107) mmol/L Carbon Dioxide 24 (22-30) mmol/L BUN 32 H (9-20) mg/dL Creatinine 1.80 H (0.66-1.25) mg/dL Glucose 164 H (74-99) mg/dL Calcium 8.9 (8.4-10.2) mg/dL AST 41 (17-59) U/L ALT 21 (4-49) U/L Alkaline Phosphatase 144 H (38-126) U/L Total Protein 7.4 (6.3-8.2) g/dL Albumin 3.4 L (3.5-5.0) g/dL Current Medications Generic Name Dose Route Start Last Admin Trade Name Freq PRN Reason Stop Dose Admin Albuterol/Ipratropium 3 ml 03/09/20 00:00 03/09/20 07:55 Ipratropium-Albuterol 3 Ml Neb INHALATION 3 ml Q6HR CODI Administration Carvedilol 6.25 mg 03/09/20 07:30 03/09/20 06:43 Carvedilol 6.25 Mg Tab PO 6.25 mg BID-W/MEALS [facility] Administration Cholecalciferol 1,000 unit 03/09/20 09:00 Cholecalciferol 1,000 Unit Tab PO DAILY [facility] Cyanocobalamin 1,000 mcg 03/09/20 09:00 Cyanocobalamin 500 Mcg Tab PO DAILY [facility] Folic Acid 1 mg 03/09/20 09:00 Folic Acid 1 Mg Tab PO DAILY [facility] Hydromorphone HCl 0.5 mg 03/08/20 22:52 Hydromorphone 0.5 Mg/0.5 Ml Syringe IVP Q3HR PRN Moderate Pain Lorazepam 0.5 mg 03/08/20 22:52 Lorazepam 2 Mg/Ml Inj IV Q6HR PRN Anxiety Naloxone HCl 0.2 mg 03/08/20 22:52 Naloxone 0.4 Mg/Ml 1 Ml Vial IV Q2M PRN Opioid Reversal Ondansetron HCl 4 mg 03/08/20 22:52 Ondansetron 4 Mg/2 Ml Vial IVP Q8HR PRN Nausea And Vomiting Spironolactone 50 mg 03/09/20 09:00 Spironolactone 25 Mg Tab PO DAILY [facility] Thiamine HCl 50 mg 03/09/20 09:00 Thiamine 100 Mg Tab PO DAILY [facility] Torsemide 40 mg 03/09/20 09:00 Torsemide 20 Mg Tab PO DAILY [facility] Tramadol HCl 50 mg 03/08/20 22:52 Tramadol 50 Mg Tab PO Q6H PRN Moderate Pain Intake and Output 03/08/20 03/09/20 03/09/20 22:59 06:59 14:59 Intake Total 480 240 Output Total 400 Balance 80 240 Intake: Oral 480 240 Output: Urine 400 Other: Voiding Method Toilet Urinal Weight 143.335 kg 143.335 kg 03/08/20 21:05 03/08/20 21:05
--- NOTE | 2020-03-09 08:57 | US ---
EXAMINATION TYPE: US venous doppler duplex LE BI DATE OF EXAM: 03/09/2020 8:39 AM COMPARISON: Ultrasound left lower extremity December 18, 2018 CLINICAL HISTORY: check for dvt. Bilateral leg edema SIDE PERFORMED: Bilateral TECHNIQUE: The lower extremity deep venous system is examined utilizing real time linear array sonog cee with graded compression, doppler sonography and color-flow sonography. VESSELS IMAGED: Common Femoral Vein Deep Femoral Vein Greater Saphenous Vein * Femoral Vein Popliteal Vein Small Saphenous Vein * Proximal Calf Veins (* superficial vessels) Right Leg: Negative for DVT Left Leg: Echogenic wall changes seen distal left Femoral Vein may suggest chronic changes vs. stuck venous valve, otherwise, is negative for DVT. Grayscale, color doppler, spectral doppler imaging performed of the deep veins of the bilateral lower extremities. There is normal flow, compressibility, vascular waveforms. IMPRESSION: No evidence of acute DVT in either lower extremity. 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 Moderate subcutaneous edema seen in the calf region b ilaterally on current study.
[2020-03-09] MEDS ORDERED: TORSEMIDE 20 MG TAB PO SCH (09:00)
[2020-03-09] MEDS: FOLIC ACID 1 MG TAB PO SCH (09:09)
[2020-03-09] MEDS: CYANOCOBALAMIN 500 MCG TAB PO SCH (09:10)
[2020-03-09] MEDS: THIAMINE 100 MG TAB PO SCH (09:10)
[2020-03-09] MEDS: CHOLECALCIFEROL 1,000 UNIT TAB PO SCH (09:11)
[2020-03-09] MEDS: SPIRONOLACTONE 25 MG TAB PO SCH (09:11)
--- NOTE | 2020-03-09 11:21 | NM ---
EXAMINATION TYPE: NM pul vent and perfuse DATE OF EXAM: 03/09/2020 COMPARISON: Nuclear medicine VQ study November 17, 2019. Chest x-ray from yesterday HISTORY: Shortness of breath, rule out pulmonary embolism TECHNIQUE: Utilizing inhalation of 37.2 mCi Tc 99m DTPA aerosol and intravenous injection of 5.3 mCi of Tc 99m MAA, ventilation and perfusion images are acquired post injection in multiple projections. FINDINGS: Central clumping of particles on ventilation images redemonstrated consistent with underlying COPD. S mall matching defects redemonstrated. There is no evidence of mismatched defects. IMPRESSION: Low scintigraphic evidence for acute pulmonary embolism. No significant change from prior .
--- NOTE | 2020-03-09 12:07 | P.NPCON ---
History of Present Illness - Reason for Consult Consult date: 03/09/20 chronic renal failure - Chief Complaint Chronic edema - History of Present Illness Visit 69-year-old male seen in consultation because of chronic edema, chronic kidney disease. His baseline creatinine is 1.4 as of 12/20/2019 with a GFR of 39 mL per minute. Etiology is nephrosclerosis. Although he is borderline diabetic there is no proteinuria His edema worsened about 3-4 weeks ago. He says he was started on Pradaxa. There is no reported evidence that this has anything to it e. He is known with borderline diabetes for a few years, chronic thrombocytopenia likely from cirrhosis, hepatitis C, treated and cured with a negative PCR in 2018, history of chronic smoking that he quit in the past, history of AAA repair with the stent graft, proximal atrial fibrillation and nonischemic cardio myopathy. His echocardiogram recently on 11/19/2019 shows 50-50% ejection fraction mild to moderate pulmonary hypertension and right ventricular enlargement. He denies changing his diet. He does admit to using salt generously. No history of taking any nonsteroidals, and was not on any afterload reducers that could have added to his edema Workup here so for has shown a urine analysis is negative for protein to urine immunoelectrophoresis negative for Bence Shukla protein. RYAN negative. The Doppler flow the leg veins show chronic old left DVT. A chest x-ray is unremarkable for any congestive heart failure Past Medical History Past Medical History: Atrial Fibrillation, Asthma, Heart Failure, COPD, GERD/Reflux, Hypertension, Liver Disease, Osteoarthritis (OA), Pneumonia, Renal Disease Additional Past Medical History / Comment(s): Pt recently admitted to [facility] with lower blood pressure/L wrist pain. Other hx: Pt states L wrist pain now goes all the way up L arm, recent AAA surgery, chronic chf, bronchitis, liver cirrhosis, hepatitis C treated 3 times, CKD stage III, anemia, thrombocytopenia, pancytopenia-pt recently saw Dr. Matthews, pt states recently told he has diabetes, numbness R lower leg, chronic gout bilateral feet, UTI, chronic low back pain, cervical pain History of Any Multi-Drug Resistant Organisms: None Reported Past Surgical History: Heart Catheterization, Hernia Repair, Orthopedic Surgery Additional Past Surgical History / Comment(s): Percutaneous endovascjlar abdominal aortic anuerysm repair, EGD, colonoscopies, bilateral cataract removals/lens implants, R shoulder rotator cuff repair, umbilical hernia repair. Past Anesthesia/Blood Transfusion Reactions: Motion Sickness Additional Past Anesthesia/Blood Transfusion Reaction / Comment(s): Pt has received blood without reaction. Past Psychological History: No Psychological Hx Reported Additional Psychological History / Comment(s): Pt states depression comes and goes. Pt lives alone with a dog and cat. He is currently recieiving home care thru [facility]. He has been using a cane. He can drive. Smoking Status: Former smoker Past Alcohol Use History: None Reported Additional Past Alcohol Use History / Comment(s): Pt started smoking in 1963 and quit in 2004. He has not drank since 2004-he drank occasionally. Past Drug Use History: Marijuana Additional Drug Use History / Comment(s): PT states he was smoking 3-4 joints a day but not lately. He aslo uses CBD oil - Past Family History Mother Family Medical History: Cancer Additional Family Medical History / Comment(s): Mother of liver cancer. Father Family Medical History: Myocardial Infarction ([place]) Additional Family Medical History / Comment(s): Father of a [place] at the age of 48yrs. Medications and Allergies Home Medications Medication Instructions Recorded Confirmed Type Budesonide-Formot 160-4.5 Mcg 2 puff INHALATION RT-BID 05/11/19 03/08/20 History [Symbicort 160-4.5 Mcg Inhaler] Cholecalciferol [Vitamin D3 (25 1,000 unit PO DAILY 05/11/19 03/08/20 History Mcg = 1000 Iu)] Albuterol Sulfate [Ventolin HFA] 1 - 2 puff INHALATION RT-Q6H PRN 08/31/19 03/08/20 History Nitroglycerin Sl Tabs [Nitrostat] 0.4 mg PO Q5M PRN 08/31/19 03/08/20 History Cyanocobalamin [Vitamin B-12] 1,000 mcg PO DAILY #30 tab 11/23/19 03/08/20 Rx carvediloL [Coreg] 6.25 mg PO BID-W/MEALS #60 tab 11/23/19 03/08/20 Rx Ipratropium-Albuterol Nebulize 3 ml INHALATION RT-Q6H PRN #120 neb 12/20/19 03/08/20 Rx [Duoneb 0.5 mg-3 mg/3 ml Soln] Folic Acid 1 mg PO DAILY 01/09/20 03/08/20 History Spironolactone [Aldactone] 50 mg PO DAILY 01/09/20 03/08/20 History Thiamine [Vitamin B-1] 50 mg PO DAILY 01/09/20 03/08/20 History Torsemide [Demadex] 40 mg PO DAILY 03/08/20 03/08/20 History Allergies Allergy/AdvReac Type Severity Reaction Status Date / Time codeine Allergy Rash/Hives Verified 03/08/20 22:27 ibuprofen Allergy Unknown Verified 03/08/20 22:27 apixaban [From Eliquis] AdvReac Rash/Hives Verified 03/08/20 22:27 dabigatran etexilate AdvReac Rash/Hives Verified 03/08/20 22:27 [From Pradaxa] midodrine AdvReac Rash/Hives Verified 03/08/20 22:27 Physical Exam Vitals: Vital Signs Temp Pulse Pulse Resp BP BP Pulse Ox 03/09/20 11:23 88 18 03/09/20 11:13 90 18 03/09/20 08:05 88 18 03/09/20 07:55 82 18 03/09/20 07:42 97.7 F 89 16 106/57 94 L 03/09/20 06:41 94 106/54 03/09/20 04:43 84 03/09/20 04:34 80 03/09/20 03:06 97.9 F 89 20 110/60 95 03/09/20 03:00 20 03/08/20 23:53 96.6 F L 96 18 124/71 98 03/08/20 22:57 95 18 126/87 97 03/08/20 22:37 90 20 98/71 96 03/08/20 21:33 95 03/08/20 21:20 95 03/08/20 20:45 98.2 F 81 18 128/80 96 Intake and Output 03/08/20 03/09/20 03/09/20 22:59 06:59 14:59 Intake Total 480 240 Output Total 400 Balance 80 240 Intake: Oral 480 240 Output: Urine 400 Other: Voiding Method Toilet Urinal Weight 143.335 kg 143.335 kg On examination is awake alert oriented comfortable on room air HEENT exam no JVP neck is supple no facial asymmetry Lungs are clear to auscultation good air entry bilaterally Heart sounds unremarkable for any murmur rub gallop Abdomen soft obese difficult exam and Extremity exam was 2+ edema Neurologically awake alert oriented Results - Lab Results Most recent lab results Calcium 8.9 mg/dL (8.4-10.2) 03/08/20 21:05 Magnesium 2.0 mg/dL (1.6-2.3) 03/08/20 21:05 03/08/20 21:05 03/08/20 21:05 Assessment and Plan Assessment: Impression 1. Chronic edema in spite of being on torsemide 40 mg and Aldactone 50 g a day. Etiology is combination of chronic kidney disease, right ventricular failure, previous DVT is on the left leg based on the Doppler flow and cirrhosis, his albumin is slightly low at 3.4. 2. Element of acute kidney injury with creatinine going up to 1.8 likely from prerenal from heart failure 3. Chronic kidney disease, stage IIIB. creatinine is 1.4 dated 12/20/2019 with a GFR of 39 mL per minute, and creatinine was further improved to 1.29 as of 01/09/2020 but in the past it has peaked at 2.78 on 11/17/2019. This variation is likely from prerenal factors from cardiorenal syndrome and etiology of chronic kidney disease is nephrosclerosis with no proteinuria 3. Nonischemic cardiomyopathy ejection fraction is 50-50% on echocardiogram dated 11/19/2019 with pulmonary hypertension and right ventricular hypertrophy 4. History of hepatitis C treated and cured negative PCR on 2018 5. History of cirrhosis 6. History of AAA repair with stent graft 7. History of chronic, from thrombocytopenia likely from cirrhosis and splenomegaly. Recommendation 1. Decrease salt intake as much as possible to 2 g salt per day 2. Maintain current medications, he increase the Demadex to 60 mg a day. 3. Watch labs 4. Patient can be discharged and followed up in our office Thank you for this consultation
--- NOTE | 2020-03-09 14:48 | P.HPIM ---
History of Present Illness H&P Date: 03/09/20 Chief Complaint: Progressive increasing leg swelling This is a 77-year-old male patient sees Dr. Trujillo for cardiovascular problem issues, patient came into emergency department with progressive increased swelling of the bilateral lower extremity, patient has seen Dr. 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 3 days ago, his Lasix was increased from 40 mg to 80 mg, however swelling did not resolve started having some discomfort and pain, patient also has significant history of the hypertension hypertensive cardiovascular disease bronchial asthma COPD, atrial fibrillation, DVT joint disease osteoarthritis and renal disease, patient has significant history of the abdominal aortic aneurysm status post percutaneous repair as well as history of hypertension and chronic hepatitis C with elevated liver enzymes patient was snoring during conversation Review of Systems All systems: negative Past Medical History Past Medical History: Atrial Fibrillation, Asthma, Heart Failure, COPD, GERD/Reflux, Hypertension, Liver Disease, Osteoarthritis (OA), Pneumonia, Renal Disease Additional Past Medical History / Comment(s): Pt recently admitted to [facility] with lower blood pressure/L wrist pain. Other hx: Pt states L wrist pain now goes all the way up L arm, recent AAA surgery, chronic chf, bronchitis, liver cirrhosis, hepatitis C treated 3 times, CKD stage III, anemia, thrombocytopenia, pancytopenia-pt recently saw Dr. Matthews, pt states recently told he has diabetes, numbness R lower leg, chronic gout bilateral feet, UTI, chronic low back pain, cervical pain History of Any Multi-Drug Resistant Organisms: None Reported Past Surgical History: Heart Catheterization, Hernia Repair, Orthopedic Surgery Additional Past Surgical History / Comment(s): Percutaneous endovascjlar abdominal aortic anuerysm repair, EGD, colonoscopies, bilateral cataract removals/lens implants, R shoulder rotator cuff repair, umbilical hernia repair. Past Anesthesia/Blood Transfusion Reactions: Motion Sickness Additional Past Anesthesia/Blood Transfusion Reaction / Comment(s): Pt has received blood without reaction. Past Psychological History: No Psychological Hx Reported Additional Psychological History / Comment(s): Pt states depression comes and goes. Pt lives alone with a dog and cat. He is currently recieiving home care thru [facility]. He has been using a cane. He can drive. Smoking Status: Former smoker Past Alcohol Use History: None Reported Additional Past Alcohol Use History / Comment(s): Pt started smoking in 1963 and quit in 2004. He has not drank since 2004-he drank occasionally. Past Drug Use History: Marijuana Additional Drug Use History / Comment(s): PT states he was smoking 3-4 joints a day but not lately. He aslo uses CBD oil - Past Family History Mother Family Medical History: Cancer Additional Family Medical History / Comment(s): Mother of liver cancer. Father Family Medical History: Myocardial Infarction ([place]) Additional Family Medical History / Comment(s): Father of a [place] at the age of 48yrs. Medications and Allergies Home Medications Medication Instructions Recorded Confirmed Type Budesonide-Formot 160-4.5 Mcg 2 puff INHALATION RT-BID 05/11/19 03/08/20 History [Symbicort 160-4.5 Mcg Inhaler] Cholecalciferol [Vitamin D3 (25 1,000 unit PO DAILY 05/11/19 03/08/20 History Mcg = 1000 Iu)] Albuterol Sulfate [Ventolin HFA] 1 - 2 puff INHALATION RT-Q6H PRN 08/31/19 03/08/20 History Nitroglycerin Sl Tabs [Nitrostat] 0.4 mg PO Q5M PRN 08/31/19 03/08/20 History Cyanocobalamin [Vitamin B-12] 1,000 mcg PO DAILY #30 tab 11/23/19 03/08/20 Rx carvediloL [Coreg] 6.25 mg PO BID-W/MEALS #60 tab 11/23/19 03/08/20 Rx Ipratropium-Albuterol Nebulize 3 ml INHALATION RT-Q6H PRN #120 neb 12/20/19 03/08/20 Rx [Duoneb 0.5 mg-3 mg/3 ml Soln] Folic Acid 1 mg PO DAILY 01/09/20 03/08/20 History Spironolactone [Aldactone] 50 mg PO DAILY 01/09/20 03/08/20 History Thiamine [Vitamin B-1] 50 mg PO DAILY 01/09/20 03/08/20 History Torsemide [Demadex] 40 mg PO DAILY 03/08/20 03/08/20 History Allergies Allergy/AdvReac Type Severity Reaction Status Date / Time codeine Allergy Rash/Hives Verified 03/08/20 22:27 ibuprofen Allergy Unknown Verified 03/08/20 22:27 apixaban [From Eliquis] AdvReac Rash/Hives Verified 03/08/20 22:27 dabigatran etexilate AdvReac Rash/Hives Verified 03/08/20 22:27 [From Pradaxa] midodrine AdvReac Rash/Hives Verified 03/08/20 22:27 Physical Exam Vitals: Vital Signs Temp Pulse Pulse Resp BP BP Pulse Ox 03/09/20 11:23 88 18 03/09/20 11:13 90 18 03/09/20 09:00 18 03/09/20 08:05 88 18 03/09/20 07:55 82 18 03/09/20 07:42 97.7 F 89 16 106/57 94 L 03/09/20 06:41 94 106/54 03/09/20 04:43 84 03/09/20 04:34 80 03/09/20 03:06 97.9 F 89 20 110/60 95 03/09/20 03:00 20 03/08/20 23:53 96.6 F L 96 18 124/71 98 03/08/20 22:57 95 18 126/87 97 03/08/20 22:37 90 20 98/71 96 03/08/20 21:33 95 03/08/20 21:20 95 03/08/20 20:45 98.2 F 81 18 128/80 96 Intake and Output 03/08/20 03/09/20 03/09/20 22:59 06:59 14:59 Intake Total 480 480 Output Total 400 Balance 80 480 Intake: Oral 480 480 Output: Urine 400 Other: Voiding Method Toilet Toilet Urinal Urinal # Voids 2 Weight 143.335 kg 143.335 kg - Constitutional General appearance: disheveled, morbidly obese - EENT Eyes: PERRLA Ears: bilateral: normal - Neck Carotids: bilateral: upstroke normal Thyroid: bilateral: normal size - Respiratory Respiratory: bilateral: diminished - Cardiovascular Rhythm: regular Heart sounds: normal: S1, S2 - Integumentary Bilateral lower extremity edema +3 Integumentary: decreased turgor - Neurologic Neurologic: CNII-XII intact - Musculoskeletal Musculoskeletal: generalized weakness, strength equal bilaterally - Psychiatric Psychiatric: A&O x's 3, appropriate affect, intact judgment & insight Results CBC & Chem 7: 03/08/20 21:05 03/08/20 21:05 Labs: Abnormal Lab Results - Last 24 Hours (Table) 03/08/20 03/08/20 03/08/20 Range/Units 21:05 21:05 21:54 RBC 3.55 L (4.30-5.90) m/uL Hgb 12.7 L (13.0-17.5) gm/dL Hct 36.8 L (39.0-53.0) % MCV 103.8 H (80.0-100.0) fL MCH 35.9 H (25.0-35.0) pg Plt Count 62 L (150-450) k/uL PT 12.7 H (9.0-12.0) sec INR 1.3 H (<1.2) APTT 35.0 H (22.0-30.0) sec D-Dimer (<0.60) mg/L FEU Sodium 134 L (137-145) mmol/L BUN 32 H (9-20) mg/dL Creatinine 1.80 H (0.66-1.25) mg/dL Glucose 164 H (74-99) mg/dL Total Bilirubin 1.8 H (0.2-1.3) mg/dL Alkaline Phosphatase 144 H (38-126) U/L Albumin 3.4 L (3.5-5.0) g/dL 03/09/20 Range/Units 07:38 RBC (4.30-5.90) m/uL Hgb (13.0-17.5) gm/dL Hct (39.0-53.0) % MCV (80.0-100.0) fL MCH (25.0-35.0) pg Plt Count (150-450) k/uL PT (9.0-12.0) sec INR (<1.2) APTT (22.0-30.0) sec D-Dimer 4.88 H (<0.60) mg/L FEU Sodium (137-145) mmol/L BUN (9-20) mg/dL Creatinine (0.66-1.25) mg/dL Glucose (74-99) mg/dL Total Bilirubin (0.2-1.3) mg/dL Alkaline Phosphatase (38-126) U/L Albumin (3.5-5.0) g/dL Chest x-ray: report reviewed, image reviewed Venous US: report reviewed (Chronic DVT left lower extremity) Thrombosis Risk Factor Assmnt - Choose All That Apply Each Factor Represents 1 point: Heart failure (<1month) Each Risk Factor Represents 2 Points: Age 61-74 years Thrombosis Risk Factor Assessment Total Risk Factor Score: 3 Thrombosis Risk Factor Assessment Level: Moderate Risk Assessment and Plan Assessment: Chronic DVT in left lower extremity Acute on chronic kidney disease Chronic hepatitis C Pulmonary hypertension Likely sleep disorder breathing and sleep apnea Plan: Patient to be resumed on Pradexa Renal and cardiovascular evaluation Further recommendations pending plan of care as per clinical response of patient Time with Patient: Greater than 30
[2020-03-09] MEDS ORDERED: IPRATROPIUM-ALBUTEROL 3 ML NEB INHALATION PRN (20:35)
[2020-03-10] MEDS: carvediloL 6.25 MG TAB PO SCH ×2 (06:19→17:29)
[2020-03-10] MEDS ORDERED: IPRATROPIUM-ALBUTEROL 3 ML NEB INHALATION SCH (08:00)
[2020-03-10] MEDS: SPIRONOLACTONE 25 MG TAB PO SCH (09:01)
[2020-03-10] MEDS: FOLIC ACID 1 MG TAB PO SCH (09:01)
[2020-03-10] MEDS: CYANOCOBALAMIN 500 MCG TAB PO SCH (09:02)
[2020-03-10] MEDS: TORSEMIDE 20 MG TAB PO SCH (09:02)
[2020-03-10] MEDS: THIAMINE 100 MG TAB PO SCH (09:02)
[2020-03-10] MEDS: CHOLECALCIFEROL 1,000 UNIT TAB PO SCH (09:03)
--- NOTE | 2020-03-10 09:15 | P.PN ---
Subjective Progress Note Date: 03/10/20 CHIEF COMPLAINT: lower extremity edema HISTORY OF PRESENT ILLNESS: Patient examined at the bedside. He continues to report lower extremity edema. He states the left lower extremity is slightly improved from yesterday. He appears very comfortable but he reports shortness of breath. He states he is receiving breathing treatments. He denies chest pain or pressure. Blood pressure 113/71. Heart rate 70-80s. He is on room air with oxygen saturations greater than 92%. He is afebrile. PHYSICAL EXAM: VITAL SIGNS: Reviewed. GENERAL: Well-developed in no acute distress. NECK: Supple. No JVD or thyromegaly LUNGS: Respirations even and unlabored. Lungs diminished bilaterally. HEART: Regular rate and rhythm. S1 and S2 heard. EXTREMITIES: Normal range of motion. No clubbing or cyanosis. Peripheral pulses intact. 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 Signing provider agrees with the documented findings, assessment, and plan of care. Objective - Vital Signs Vital signs: Vital Signs Temp 98.1 F 03/10/20 08:17 Pulse 88 03/10/20 08:17 Resp 16 03/10/20 08:17 BP 113/71 03/10/20 08:17 Pulse Ox 93 L 03/10/20 08:17 Intake & Output 03/09/20 03/10/20 03/10/20 18:59 06:59 18:59 Intake Total 680 540 200 Balance 680 540 200 Intake: Oral 680 540 200 Other: Voiding Method Toilet Toilet Toilet Urinal Urinal Urinal # Voids 4 2 1 - Labs CBC & Chem 7: 03/08/20 21:05 03/08/20 21:05
--- NOTE | 2020-03-10 09:55 | P.PN ---
Subjective patient is seen in follow-up for acute kidney injury on chronic kidney disease. Maintained on Demadex 60 mg daily. Edema improving. Has been voiding. Oral intake is good. No vomiting or diarrhea. Vital signs are stable. General: The patient appeared well nourished and normally developed. HEENT: Head exam is unremarkable. Neck is without jugular venous distension. LUNGS: Breath sounds decreased. HEART: Rate and Rhythm are regular. ABDOMEN: Soft, nontender. EXTREMITITES: 2+ edema right lower extremity. 1+ edema left lower extremity. Objective - Vital Signs Vital signs: Vital Signs Temp 98.1 F 03/10/20 08:17 Pulse 88 03/10/20 08:17 Resp 16 03/10/20 08:17 BP 113/71 03/10/20 08:17 Pulse Ox 93 L 03/10/20 08:17 Intake & Output 03/09/20 03/10/20 03/10/20 18:59 06:59 18:59 Intake Total 680 540 200 Balance 680 540 200 Intake: Oral 680 540 200 Other: Voiding Method Toilet Toilet Toilet Urinal Urinal Urinal # Voids 4 2 1 - Labs CBC & Chem 7: 03/08/20 21:05 03/08/20 21:05 Assessment and Plan Plan: Assessment: 1. Acute kidney injury mostly prerenal secondary to cardiorenal syndrome. Creatinine 1.8 as of March 2. No proteinuria on UA done December 2019. No hydronephrosis noted on abdominal ultrasound on November 2019. Kidneys were normal in size. 2. Chronic kidney disease stage III with baseline creatinine near 1.3-1.5. Etiology is nephrosclerosis. 3. Volume overload. 4. Acute on chronic diastolic CHF. 5. History of DVT with chronic edema. Chronic partially occlusive DVT of the left lower extremity noted on imaging. Low evidence of PE on VQ scan. 6. History of hep C. Plan: Maintain Demadex 60 mg once daily. Follow-up morning labs. Follow-up echocardiogram. Low-salt diet and 1500 mL fluid restriction per day.
[2020-03-10 10:13] LABS: Potassium 3.8 mmol/L (3.5-5.1)
--- NOTE | 2020-03-10 11:00 | ECHOF ---
Referral Reason:sob MEASUREMENTS -------- HEIGHT: 188.0 cm WEIGHT: 143.3 kg BP: 131/79 RVIDd: 4.9 cm (< 3.3) IVSd: 1.2 cm (0.6 - 1.1) LVIDd: 5.2 cm (3.9 - 5.3) LVPWd: 1.3 cm (0.6 - 1.1) IVSs: 1.5 cm LVIDs: 4.1 cm LVPWs: 1.7 cm LAESV Index (A-L): 19.59 ml/m MV EXCURSION: 12.613 mm (> 18.000) MV EF SLOPE: 85 mm/s (70 - 150) EPSS: 0.5 cm MV E Eb: 0.54 m/s MV DecT: 177 ms MV A Eb: 0.54 m/s MV E/A Ratio: 1.00 RAP: 5.00 mmHg RVSP: 33.08 mmHg FINDINGS -------- Sinus rhythm. This was a technically difficult study with suboptimal views. The left ventricular size is normal. There is mild concentric left ventricular hypertrophy. Overa ll left ventricular systolic function is mild-moderately impaired with, an EF between 40 - 45 %. The right ventricle is severely enlarged. Normal LA size by volume 22+/-6 ml/m2. The right atrium was not well visualized. 5.0mg of Lumason was utilized for enhancement of images Interatrial and interventricular septum intact. The aortic valve was not well visualized. There is no evidence of aortic regurgitation. There is no evidence of aortic stenosis. The mitral valve was not well visualized. Mild mitral regurgitation is present. The tricuspid valve was not well visualized. Mild tricuspid regurgitation present. There is no ev idence of pulmonary hypertension. The right ventricular systolic pressure, as measured by Doppler, is 33.08mmHg. The pulmonic valve was not well visualized. The aortic root size is normal. IVC Not well visulized. There is no pericardial effusion. CONCLUSIONS -------- 1. The left ventricular size is normal. 2. There is mild concentric left ventricular hypertrophy. 3. Overall left ventricular systolic function is mild-moderately impaired with, an EF between 40 - 45 %. 4. The right ventricle is severely enlarged. 5. Mild mitral regurgitation is present. 6. Mild tricuspid regurgitation present. STARS ANALYTICAL LEAD: Lillian King RDCS
[2020-03-10 11:46] LABS: Glucose,Whole Blood 249 mg/dL (75-99)
[2020-03-10] MEDS: BUDESONIDE 1 MG/2 ML NEBU INHALATION SCH ×2 (12:05→20:13)
[2020-03-10] MEDS: IPRATROPIUM-ALBUTEROL 3 ML NEB INHALATION SCH ×3 (12:09→20:13)
[2020-03-10] MEDS: methylPREDNISolone SOD SUCCI 40 MG/ML 1 ML VIAL IV SCH ×2 (12:12→20:13)
[2020-03-10] MEDS: INSULIN ASPART (NovoLOG) 100 UNIT/ML VIAL SQ SCH ×3 (12:13→20:02)
--- NOTE | 2020-03-10 12:21 | P.CONS ---
History of Present Illness - Reason for Consult Consult date: 03/10/20 Antocoagulation with chronic thrombocytopenia Requesting physician: Farhad Rowell - Chief Complaint Atrial Fib. - History of Present Illness Mr Lim is pleasant white male , initially seen in consult at [facility] on 11/18/19. The patient has a known history of chronic thrombo- cytopenia with baseline plt count usually in the 40,000 range, as well as WBC 2.5-3.5. He also has a known history of hepatitis C and liver cirrhosis. The patient had workup in the hospital for other causes of pancytopenia, which was negative and therefore the above findings were felt to be due to the chronic liver disease. The patient had had an endovascular aortic aneurysm repair in 10/24. He was placed on eliquis but then stopped it because he developed a rash. He came into the hospital with decreased range of motion in his left upper extremity, left distal upper extremity pain migrating up his left arm towards the chest. This was ultimately felt to be muscular skeletal, and improved with supportive care. The patient has a history of paroxysmal A. fib. The case was discussed with cardiology indicated that they would definitely prefer that the patient continue on anticoagulation. He was started back on anticoagulation with Pradaxa inpatient. As platelets were less than 50,000, The patient received platelet transfusions. He was then seen for his first office visit on 11/26/19. workup indicated low platelet counts due to liver cirrhosis. It was discussed with the patient that in this situation, there was no approved method available to increase platelet counts in a stable manner over the long-term, other than a splenectomy. Therefore the decision to continue anticoagulation would be based on risk versus benefit. As platelet counts were mostly above 40,000, it was ultimately decided to continue anticoagulation with full understanding of risk versus benefit expressed by the patient. at his visit in 01/24, platelets were in the 30,000 range, likely due to recent pneumonia. Anti-coagulation was held, and the patient received a pl atelet transfusion followed by resumption of treatment. He was supposed to have platelet counts checked regularly in the office but did not come for those appointments. He states that he developed a gout attack involving his right foot. This resolved gradually and was then followed by a UTI requiring outpatient antibiotics. He denied any fevers/chills/nausea/vomiting currently. he has been off antibiotics for about 1 week. Energy level continues to be reduced. He reports good compliance with his anticoagulation regimen. No unusual bleeding or bruising noted. Activity level is overall low. He has significant shortness of breath with exertion which is stable. he is currently using a wheelchair for observation because of residual pain from his gout attack. Review of systems otherwise as per HPI and negative out of 10. Actually from a hematology standpoint at his last visit he was doing well, continuing on anticoagulation, without any significant side effects. CBC today shows. Counts to be actually normal at 210,000. -He was advised that the increase is most likely due to inflammatory simulation of the bone marrow. It indicated preserved platelet production function. Therefore his thrombocytopenia is more likely due to consumption from splenomegaly. - It was anticipated that his. Counts will likely decline once acute inflammation wears off. hence our current picture we are faced with, as he has now been admitted and in observation with platelet count 60K and requiring continuation of anticoagulation. He is well aware of s/s bleeding and the need for frequent monitoring, risks of with and/or without anticoagulation. Continue AC therapy if platelets greater than 50K, close monitoring. He unfortunetly is limited to anticoagulation secondary to what he calls "under the skin" pruitic hives he has experienced with both pradaxa and eliquis. Review of Systems All systems: negative Constitutional: Reports as per HPI Past Medical History Past Medical History: Atrial Fibrillation, Asthma, Heart Failure, COPD, GERD/Reflux, Hypertension, Liver Disease, Osteoarthritis (OA), Pneumonia, Renal Disease Additional Past Medical History / Comment(s): Pt recently admitted to [facility] with lower blood pressure/L wrist pain. Other hx: Pt states L wrist pain now goes all the way up L arm, recent AAA surgery, chronic chf, bronchitis, liver cirrhosis, hepatitis C treated 3 times, CKD stage III, anemia, thrombocytopenia, pancytopenia-pt recently saw Dr. Matthews, pt states recently told he has diabetes, numbness R lower leg, chronic gout bilateral feet, UTI, chronic low back pain, cervical pain History of Any Multi-Drug Resistant Organisms: None Reported Past Surgical History: Heart Catheterization, Hernia Repair, Orthopedic Surgery Additional Past Surgical History / Comment(s): Percutaneous endovascjlar abdominal aortic anuerysm repair, EGD, colonoscopies, bilateral cataract removals/lens implants, R shoulder rotator cuff repair, umbilical hernia repair. Past Anesthesia/Blood Transfusion Reactions: Motion Sickness Additional Past Anesthesia/Blood Transfusion Reaction / Comm: Pt has received blood without reaction. Past Psychological History: No Psychological Hx Reported Additional Psychological History / Comment(s): Pt states depression comes and goes. Pt lives alone with a dog and cat. He is currently recieiving home care thru [facility]. He has been using a cane. He can drive. Smoking Status: Former smoker Past Alcohol Use History: None Reported Additional Past Alcohol Use History / Comment(s): Pt started smoking in 1963 and quit in 2004. He has not drank since 2004-he drank occasionally. Past Drug Use History: Marijuana Additional Drug Use History / Comment(s): PT states he was smoking 3-4 joints a day but not lately. He aslo uses CBD oil - Past Family History Mother Family Medical History: Cancer Additional Family Medical History / Comment(s): Mother of liver cancer. Father Family Medical History: Myocardial Infarction (CO) Additional Family Medical History / Comment(s): Father of a CO at the age of 48yrs. Medications and Allergies Home Medications Medication Instructions Recorded Confirmed Type Budesonide-Formot 160-4.5 Mcg 2 puff INHALATION RT-BID 05/11/19 03/08/20 History [Symbicort 160-4.5 Mcg Inhaler] Cholecalciferol [Vitamin D3 (25 1,000 unit PO DAILY 05/11/19 03/08/20 History Mcg = 1000 Iu)] Albuterol Sulfate [Ventolin HFA] 1 - 2 puff INHALATION RT-Q6H PRN 08/31/19 03/08/20 History Nitroglycerin Sl Tabs [Nitrostat] 0.4 mg PO Q5M PRN 08/31/19 03/08/20 History Cyanocobalamin [Vitamin B-12] 1,000 mcg PO DAILY #30 tab 11/23/19 03/08/20 Rx carvediloL [Coreg] 6.25 mg PO BID-W/MEALS #60 tab 11/23/19 03/08/20 Rx Ipratropium-Albuterol Nebulize 3 ml INHALATION RT-Q6H PRN #120 neb 12/20/19 03/08/20 Rx [Duoneb 0.5 mg-3 mg/3 ml Soln] Folic Acid 1 mg PO DAILY 01/09/20 03/08/20 History Spironolactone [Aldactone] 50 mg PO DAILY 01/09/20 03/08/20 History Thiamine [Vitamin B-1] 50 mg PO DAILY 01/09/20 03/08/20 History Torsemide [Demadex] 40 mg PO DAILY 03/08/20 03/08/20 History Allergies Allergy/AdvReac Type Severity Reaction Status Date / Time codeine Allergy Rash/Hives Verified 03/08/20 22:27 ibuprofen Allergy Unknown Verified 03/08/20 22:27 apixaban [From Eliquis] AdvReac Rash/Hives Verified 03/08/20 22:27 dabigatran etexilate AdvReac Rash/Hives Verified 03/08/20 22:27 [From Pradaxa] midodrine AdvReac Rash/Hives Verified 03/08/20 22:27 Physical Exam Vitals: Vital Signs Temp Pulse Pulse Resp BP BP BP 03/09/20 15:00 98.2 F 92 20 116/71 03/09/20 11:23 88 18 03/09/20 11:13 90 18 03/09/20 09:00 18 03/09/20 08:05 88 18 03/09/20 07:55 82 18 03/09/20 07:42 97.7 F 89 16 106/57 03/09/20 06:41 94 106/54 03/09/20 04:43 84 03/09/20 04:34 80 03/09/20 03:06 97.9 F 89 20 110/60 03/09/20 03:00 20 03/08/20 23:53 96.6 F L 96 18 124/71 03/08/20 22:57 95 18 126/87 03/08/20 22:37 90 20 98/71 03/08/20 21:33 95 03/08/20 21:20 95 03/08/20 20:45 98.2 F 81 18 128/80 Pulse Ox 03/09/20 15:00 96 03/09/20 11:23 03/09/20 11:13 03/09/20 09:00 03/09/20 08:05 03/09/20 07:55 03/09/20 07:42 94 L 03/09/20 06:41 03/09/20 04:43 03/09/20 04:34 03/09/20 03:06 95 03/09/20 03:00 03/08/20 23:53 98 03/08/20 22:57 97 03/08/20 22:37 96 03/08/20 21:33 03/08/20 21:20 03/08/20 20:45 96 Intake and Output 03/09/20 03/09/20 03/09/20 06:59 14:59 22:59 Intake Total 480 480 200 Output Total 400 Balance 80 480 200 Intake: Oral 480 480 200 Output: Urine 400 Other: Voiding Method Toilet Toilet Toilet Urinal Urinal Urinal # Voids 2 4 Weight 143.335 kg - Constitutional General appearance: cooperative, no acute distress - EENT ENT: hard of hearing, NA/AT, normal oropharynx - Neck Neck: normal ROM - Respiratory Respiratory: bilateral: diminished (bases) - Cardiovascular Rhythm: irregularly irregular leg Peripheral Edema: bilateral: Trace - Gastrointestinal General gastrointestinal: distended, soft - Integumentary Integumentary: pale - Neurologic Neurologic: CNII-XII intact - Musculoskeletal Musculoskeletal: generalized weakness - Psychiatric Psychiatric: A&O x's 3, appropriate affect, intact judgment & insight Results CBC & Chem 7: 03/10/20 09:28 03/10/20 09:28 Labs: Abnormal Lab Results - Last 24 Hours (Table) 03/08/20 03/08/20 03/08/20 Range/Units 21:05 21:05 21:54 RBC 3.55 L (4.30-5.90) m/uL Hgb 12.7 L (13.0-17.5) gm/dL Hct 36.8 L (39.0-53.0) % MCV 103.8 H (80.0-100.0) fL MCH 35.9 H (25.0-35.0) pg Plt Count 62 L (150-450) k/uL PT 12.7 H (9.0-12.0) sec INR 1.3 H (<1.2) APTT 35.0 H (22.0-30.0) sec D-Dimer (<0.60) mg/L FEU Sodium 134 L (137-145) mmol/L BUN 32 H (9-20) mg/dL Creatinine 1.80 H (0.66-1.25) mg/dL Glucose 164 H (74-99) mg/dL Total Bilirubin 1.8 H (0.2-1.3) mg/dL Alkaline Phosphatase 144 H (38-126) U/L Albumin 3.4 L (3.5-5.0) g/dL 03/09/20 Range/Units 07:38 RBC (4.30-5.90) m/uL Hgb (13.0-17.5) gm/dL Hct (39.0-53.0) % MCV (80.0-100.0) fL MCH (25.0-35.0) pg Plt Count (150-450) k/uL PT (9.0-12.0) sec INR (<1.2) APTT (22.0-30.0) sec D-Dimer 4.88 H (<0.60) mg/L FEU Sodium (137-145) mmol/L BUN (9-20) mg/dL Creatinine (0.66-1.25) mg/dL Glucose (74-99) mg/dL Total Bilirubin (0.2-1.3) mg/dL Alkaline Phosphatase (38-126) U/L Albumin (3.5-5.0) g/dL Assessment and Plan (1) Liver disease Current Visit: No Status: Acute Code(s): K76.9 - LIVER DISEASE, UNSPECIFIED SNOMED Code(s): 586653128 (2) Thrombocytopenia Current Visit: No Status: Acute Code(s): D69.6 - THROMBOCYTOPENIA, UNSPECIFIED SNOMED Code(s): 642630549 Plan: Ok to continue anticoagulation with close monitoring and platelets greater than 50K, re-education on risks with and without anti-coagulation. With his recurrent "allergic reactions" with anti-coagulation and his chronic thrombocytopenia, lovenox would be the next option. Unfortunetly his renal function is less than optimal for this option. Consideration of Warfarin again (has had previously) would be resonable. In the interim recommend restarting anticoagulation with heparin in anticipation to bridge to warfarin. I do question his complaints of "itching" to the differential of renal and underlying liver disease. He states symptoms present within an hour of administration with AC therapy, therefore any plan for AC restart should be done in hospital with possible supportive medication anti histamine
[2020-03-10 13:07] LABS: Basophils % (A) 0 %; Eosinophils # (A) 0.3 k/uL (0-0.7); Eosinophils % (A) 6 %; HCT 36.4 % (39.0-53.0); HGB 11.7 gm/dL (13.0-17.5); Lymphocytes # (A) 1.1 k/uL (1.0-4.8); Lymphocytes % (A) 24 %; MCH 34.9 pg (25.0-35.0); MCHC 32.2 g/dL (31.0-37.0); MCV 108.4 fL (80.0-100.0); Macrocytosis Marked; Mean Platelet Volume 10.8; Monocytes # (A) 0.4 k/uL (0-1.0); Monocytes % (A) 9 %; Neutrophils # (A) 2.7 k/uL (1.3-7.7); Neutrophils % (A) 59 %; RBC 3.36 m/uL (4.30-5.90); RDW 15.9 % (11.5-15.5); WBC 4.7 k/uL (3.8-10.6)
[2020-03-10 13:08] LABS: Platelet Count 52 k/uL (150-450)
[2020-03-10 13:39] LABS: Poikilocytosis (M) Present
[2020-03-10 17:06] LABS: Glucose,Whole Blood 178 mg/dL (75-99)
[2020-03-10 17:22] LABS: Albumin 3.1 g/dL (3.5-5.0); Bilirubin, Delta 0.3 mg/dL (0.0-0.2); Bilirubin,Unconjugated 1.3 mg/dL (0.0-1.1); Total Bilirubin 1.6 mg/dL (0.2-1.3); Total Protein 6.7 g/dL (6.3-8.2)
[2020-03-10 19:59] LABS: Glucose,Whole Blood 298 mg/dL (75-99)
[2020-03-10 23:13] VITALS: RESP 16
--- NOTE | 2020-03-10 23:55 | P.PN ---
Progress Note - Text Progress Note Date: 03/10/20 Presenting complaint: Lower extremity edema Interval history: This is a patient who presented with lower extremity edema. Has chronic kidney disease. Baseline creatinine of 1.4 as of 12/20/2019. From nephrosclerosis. Presented with worsening of edema for 3-4 weeks. Edema has been felt to be from combination of chronic kidney disease, right ventricular failure and previous DVT in the left leg. Some element of acute kidney injury from cardiorenal syndrome. Today-patient is short of breath. Congestive the chest. Wheezing. Had been a long-standing smoker. Review of systems: Was done for constitutional, cardiovascular, GI, pulmonary. relevant finding as above Active Medications Albuterol/Ipratropium (Ipratropium-Albuterol 3 Ml Neb) 3 ml INHALATION RT-Q2H PRN PRN Reason: Shortness Of Breath Or Wheezing Albuterol/Ipratropium (Ipratropium-Albuterol 3 Ml Neb) 3 ml INHALATION RT-Q4H [facility] Last Admin: 03/10/20 20:13 Dose: 3 ml Documented by: Budesonide (Budesonide 1 Mg/2 Ml Nebu) 1 mg INHALATION RT-BID [facility] Last Admin: 03/10/20 20:13 Dose: 1 mg Documented by: Carvedilol (Carvedilol 6.25 Mg Tab) 6.25 mg PO BID-W/MEALS [facility] Last Admin: 03/10/20 17:29 Dose: 6.25 mg Documented by: Cholecalciferol (Cholecalciferol 1,000 Unit Tab) 1,000 unit PO DAILY [facility] Last Admin: 03/10/20 09:03 Dose: 1,000 unit Documented by: Cyanocobalamin (Cyanocobalamin 500 Mcg Tab) 1,000 mcg PO DAILY [facility] Last Admin: 03/10/20 09:02 Dose: 1,000 mcg Documented by: Folic Acid (Folic Acid 1 Mg Tab) 1 mg PO DAILY [facility] Last Admin: 03/10/20 09:01 Dose: 1 mg Documented by: Insulin Aspart (Insulin Aspart (Novolog) 100 Unit/Ml Vial) 0 unit SQ ACHS [facility]; Protocol Last Admin: 03/10/20 20:02 Dose: 8 unit Documented by: Lorazepam (Lorazepam 2 Mg/Ml Inj) 0.5 mg IV Q6HR PRN PRN Reason: Anxiety Methylprednisolone Sodium Succinate (Methylprednisolone Sod Succi 40 Mg/Ml 1 Ml Vial) 40 mg IV Q8H [facility] Last Admin: 03/10/20 20:13 Dose: 40 mg Documented by: Naloxone HCl (Naloxone 0.4 Mg/Ml 1 Ml Vial) 0.2 mg IV Q2M PRN PRN Reason: Opioid Reversal Ondansetron HCl (Ondansetron 4 Mg/2 Ml Vial) 4 mg IVP Q8HR PRN PRN Reason: Nausea And Vomiting Spironolactone (Spironolactone 25 Mg Tab) 50 mg PO DAILY [facility] Last Admin: 03/10/20 09:01 Dose: 50 mg Documented by: Thiamine HCl (Thiamine 100 Mg Tab) 50 mg PO DAILY [facility] Last Admin: 03/10/20 09:02 Dose: 50 mg Documented by: Torsemide (Torsemide 20 Mg Tab) 60 mg PO DAILY [facility] Last Admin: 03/10/20 09:02 Dose: 60 mg Documented by: Tramadol HCl (Tramadol 50 Mg Tab) 50 mg PO Q6H PRN PRN Reason: Moderate Pain On examination: VITAL SIGNS: 98, 89, 22, 1 4993, 97% on 2 L GENERAL APPEARANCE: Laying in bed tired, short of breath EYES: Pupils equal. Conjunctiva normal. NECK: JVD not raised. Mass not palpable. RESPIRATORY: Respiratory effort increased, decreased breath sounds prolonged expiration and wheezing. CARDIOVASCULAR: First and second sounds normal. Edema present ABDOMEN: Soft. Liver and spleen not palpable. No tenderness. No mass palpable. PSYCHIATRY: AO 3 mood and affect tired INVESTIGATIONS, reviewed in the clinical context: White count 4.7 hemoglobin 11.7 platelets 52 potassium 3.8 bun 26 creatinine 1.51 2-D echocardiogram-EF 40-45%. Right ventricle is severely enlarged Assessment: -Possible cor pulmonale -Acute COPD exacerbation in an [id number] diagnosis -Chronic kidney disease likely stage III from nephrosclerosis -Acute kidney injury prerenal from cardiorenal syndrome -Obesity BMI 39.6 -Chronic gout -Compensated cirrhosis secondary to hepatitis C -Pancytopenia likely due to cirrhosis, workup in place by hematology -GERD -Essential hypertension -Acute on Chronic congestive heart failure from systolic dysfunction EF 40-45% -Abdominal aortic aneurysm endovascular repair status post -Paroxysmal atrial fibrillation- had been on pradaxa by cardiology. In the past Plan: Patient nebulizer be started on every 4 hours, IV Solu-Medrol, inhaled steroids and inhaled beta agonist other medications to continue. We'll watch another 24 hours. Discussed with the patient.
[2020-03-11] MEDS: IPRATROPIUM-ALBUTEROL 3 ML NEB INHALATION SCH ×4 (00:25→11:04)
[2020-03-11] MEDS: methylPREDNISolone SOD SUCCI 40 MG/ML 1 ML VIAL IV SCH ×2 (04:21→11:43)
[2020-03-11] MEDS: carvediloL 6.25 MG TAB PO SCH (06:38)
[2020-03-11 06:39] LABS: Glucose,Whole Blood 226 mg/dL (75-99)
[2020-03-11] MEDS: BUDESONIDE 1 MG/2 ML NEBU INHALATION SCH (07:40)
[2020-03-11] MEDS: INSULIN ASPART (NovoLOG) 100 UNIT/ML VIAL SQ SCH ×2 (07:42→12:25)
[2020-03-11 08:20] LABS: Basophils % (A) 0 %; Eosinophils % (A) 0 %; HCT 33.4 % (39.0-53.0); HGB 11.4 gm/dL (13.0-17.5); Lymphocytes # (A) 0.6 k/uL (1.0-4.8); Lymphocytes % (A) 14 %; MCH 36.6 pg (25.0-35.0); MCHC 34.1 g/dL (31.0-37.0); MCV 107.5 fL (80.0-100.0); Macrocytosis Marked; Mean Platelet Volume 9.7; Monocytes # (A) 0.2 k/uL (0-1.0); Monocytes % (A) 4 %; Neutrophils # (A) 3.4 k/uL (1.3-7.7); Neutrophils % (A) 81 %; RDW 15.3 % (11.5-15.5); WBC 4.2 k/uL (3.8-10.6)
[2020-03-11 08:21] LABS: Platelet Count 50 k/uL (150-450)
[2020-03-11 08:33] LABS: Calcium 8.7 mg/dL (8.4-10.2); Magnesium 2.1 mg/dL (1.6-2.3); Potassium 4.1 mmol/L (3.5-5.1)
[2020-03-11] MEDS: SPIRONOLACTONE 25 MG TAB PO SCH (08:36)
[2020-03-11] MEDS: TORSEMIDE 20 MG TAB PO SCH (08:36)
[2020-03-11] MEDS: CYANOCOBALAMIN 500 MCG TAB PO SCH (08:36)
[2020-03-11] MEDS: CHOLECALCIFEROL 1,000 UNIT TAB PO SCH (08:36)
[2020-03-11] MEDS: FOLIC ACID 1 MG TAB PO SCH (08:37)
[2020-03-11] MEDS: THIAMINE 100 MG TAB PO SCH (08:37)
[2020-03-11 08:59] VITALS: BP 128/80; TEMP 97.7
[2020-03-11 10:07] LABS: Anisocytosis (M) Present; Poikilocytosis (M) Present
--- NOTE | 2020-03-11 10:55 | P.PN ---
Subjective Progress Note Date: 03/11/20 CHIEF COMPLAINT: lower extremity edema HISTORY OF PRESENT ILLNESS: Patient examined at the bedside. He reports improvement in shortness of breath today. Lower extremity edema is also improving. He denies chest pain or pressure. Blood pressure 120/80. Heart rate 80s. He is on room air with oxygen saturations greater than 92%. He is afebrile. Echocardiogram completed revealing ejection fraction 40-45%, mild mitral regurgitation, and mild tricuspid regurgitation. Creatinine 1.57 today. PHYSICAL EXAM: VITAL SIGNS: Reviewed. GENERAL: Well-developed in no acute distress. NECK: Supple. No JVD or thyromegaly LUNGS: Respirations even and unlabored. Lungs diminished bilaterally. HEART: Regular rate and rhythm. S1 and S2 heard. EXTREMITIES: Normal range of motion. No clubbing or cyanosis. Peripheral pulses intact. 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 Signing provider agrees with the documented findings, assessment, and plan of care. Objective - Vital Signs Vital signs: Vital Signs Temp 97.7 F 03/11/20 08:57 Pulse 84 03/11/20 08:57 Resp 16 03/11/20 08:57 BP 128/80 03/11/20 08:57 Pulse Ox 95 03/11/20 08:57 Intake & Output 03/10/20 03/11/20 03/11/20 18:59 06:59 18:59 Intake Total 500 250 Output Total 400 700 Balance 100 -700 250 Intake: Oral 500 250 Output: Urine 400 700 Other: Voiding Method Toilet Toilet Toilet Urinal Urinal Urinal # Voids 2 1 1 - Labs CBC & Chem 7: 03/11/20 07:47 03/11/20 07:47 Labs: Abnormal Lab Results - Last 24 Hours (Table) 03/10/20 03/10/20 03/10/20 Range/Units 09:28 11:45 16:35 RBC 3.36 L (4.30-5.90) m/uL Hgb 11.7 L (13.0-17.5) gm/dL Hct 36.4 L (39.0-53.0) % MCV 108.4 H (80.0-100.0) fL MCH (25.0-35.0) pg RDW 15.9 H (11.5-15.5) % Plt Count 52 L (150-450) k/uL Lymphocytes # (1.0-4.8) k/uL Macrocytosis Marked A Sodium (137-145) mmol/L BUN (9-20) mg/dL Creatinine (0.66-1.25) mg/dL Glucose (74-99) mg/dL POC Glucose (mg/dL) 249 H (75-99) mg/dL Total Bilirubin 1.6 H (0.2-1.3) mg/dL Unconjugated Bilirubin 1.3 H (0.0-1.1) mg/dL Delta Bilirubin 0.3 H (0.0-0.2) mg/dL Alkaline Phosphatase 145 H (38-126) U/L Albumin 3.1 L (3.5-5.0) g/dL 03/10/20 03/10/20 03/11/20 Range/Units 17:04 19:57 06:37 RBC (4.30-5.90) m/uL Hgb (13.0-17.5) gm/dL Hct (39.0-53.0) % MCV (80.0-100.0) fL MCH (25.0-35.0) pg RDW (11.5-15.5) % Plt Count (150-450) k/uL Lymphocytes # (1.0-4.8) k/uL Macrocytosis Sodium (137-145) mmol/L BUN (9-20) mg/dL Creatinine (0.66-1.25) mg/dL Glucose (74-99) mg/dL POC Glucose (mg/dL) 178 H 298 H 226 H (75-99) mg/dL Total Bilirubin (0.2-1.3) mg/dL Unconjugated Bilirubin (0.0-1.1) mg/dL Delta Bilirubin (0.0-0.2) mg/dL Alkaline Phosphatase (38-126) U/L Albumin (3.5-5.0) g/dL 03/11/20 03/11/20 Range/Units 07:47 07:47 RBC 3.10 L (4.30-5.90) m/uL Hgb 11.4 L (13.0-17.5) gm/dL Hct 33.4 L (39.0-53.0) % MCV 107.5 H (80.0-100.0) fL MCH 36.6 H (25.0-35.0) pg RDW (11.5-15.5) % Plt Count 50 L (150-450) k/uL Lymphocytes # 0.6 L (1.0-4.8) k/uL Macrocytosis Marked A Sodium 135 L (137-145) mmol/L BUN 30 H (9-20) mg/dL Creatinine 1.57 H (0.66-1.25) mg/dL Glucose 263 H (74-99) mg/dL POC Glucose (mg/dL) (75-99) mg/dL Total Bilirubin (0.2-1.3) mg/dL Unconjugated Bilirubin (0.0-1.1) mg/dL Delta Bilirubin (0.0-0.2) mg/dL Alkaline Phosphatase (38-126) U/L Albumin (3.5-5.0) g/dL
--- NOTE | 2020-03-11 11:03 | P.PN ---
Subjective patient is seen in follow-up for acute kidney injury on chronic kidney disease. Maintained on Demadex 60 mg daily. Edema improving. Has been voiding. Oral intake is good. No vomiting or diarrhea. Blood pressure stable. Wants to go home. Vital signs are stable. General: The patient appeared well nourished and normally developed. HEENT: Head exam is unremarkable. Neck is without jugular venous distension. LUNGS: Breath sounds decreased. HEART: Rate and Rhythm are regular. ABDOMEN: Soft, nontender. EXTREMITITES: 2+ edema right lower extremity. Trace-1+ edema left lower extremity. Objective - Vital Signs Vital signs: Vital Signs Temp 97.7 F 03/11/20 08:57 Pulse 84 03/11/20 08:57 Resp 16 03/11/20 08:57 BP 128/80 03/11/20 08:57 Pulse Ox 95 03/11/20 08:57 Intake & Output 03/10/20 03/11/20 03/11/20 18:59 06:59 18:59 Intake Total 500 250 Output Total 400 700 Balance 100 -700 250 Intake: Oral 500 250 Output: Urine 400 700 Other: Voiding Method Toilet Toilet Toilet Urinal Urinal Urinal # Voids 2 1 1 - Labs CBC & Chem 7: 03/11/20 07:47 03/11/20 07:47 Labs: Abnormal Lab Results - Last 24 Hours (Table) 03/10/20 03/10/20 03/10/20 Range/Units 09:28 11:45 16:35 RBC 3.36 L (4.30-5.90) m/uL Hgb 11.7 L (13.0-17.5) gm/dL Hct 36.4 L (39.0-53.0) % MCV 108.4 H (80.0-100.0) fL MCH (25.0-35.0) pg RDW 15.9 H (11.5-15.5) % Plt Count 52 L (150-450) k/uL Lymphocytes # (1.0-4.8) k/uL Macrocytosis Marked A Sodium (137-145) mmol/L BUN (9-20) mg/dL Creatinine (0.66-1.25) mg/dL Glucose (74-99) mg/dL POC Glucose (mg/dL) 249 H (75-99) mg/dL Total Bilirubin 1.6 H (0.2-1.3) mg/dL Unconjugated Bilirubin 1.3 H (0.0-1.1) mg/dL Delta Bilirubin 0.3 H (0.0-0.2) mg/dL Alkaline Phosphatase 145 H (38-126) U/L Albumin 3.1 L (3.5-5.0) g/dL 03/10/20 03/10/20 03/11/20 Range/Units 17:04 19:57 06:37 RBC (4.30-5.90) m/uL Hgb (13.0-17.5) gm/dL Hct (39.0-53.0) % MCV (80.0-100.0) fL MCH (25.0-35.0) pg RDW (11.5-15.5) % Plt Count (150-450) k/uL Lymphocytes # (1.0-4.8) k/uL Macrocytosis Sodium (137-145) mmol/L BUN (9-20) mg/dL Creatinine (0.66-1.25) mg/dL Glucose (74-99) mg/dL POC Glucose (mg/dL) 178 H 298 H 226 H (75-99) mg/dL Total Bilirubin (0.2-1.3) mg/dL Unconjugated Bilirubin (0.0-1.1) mg/dL Delta Bilirubin (0.0-0.2) mg/dL Alkaline Phosphatase (38-126) U/L Albumin (3.5-5.0) g/dL 03/11/20 03/11/20 Range/Units 07:47 07:47 RBC 3.10 L (4.30-5.90) m/uL Hgb 11.4 L (13.0-17.5) gm/dL Hct 33.4 L (39.0-53.0) % MCV 107.5 H (80.0-100.0) fL MCH 36.6 H (25.0-35.0) pg RDW (11.5-15.5) % Plt Count 50 L (150-450) k/uL Lymphocytes # 0.6 L (1.0-4.8) k/uL Macrocytosis Marked A Sodium 135 L (137-145) mmol/L BUN 30 H (9-20) mg/dL Creatinine 1.57 H (0.66-1.25) mg/dL Glucose 263 H (74-99) mg/dL POC Glucose (mg/dL) (75-99) mg/dL Total Bilirubin (0.2-1.3) mg/dL Unconjugated Bilirubin (0.0-1.1) mg/dL Delta Bilirubin (0.0-0.2) mg/dL Alkaline Phosphatase (38-126) U/L Albumin (3.5-5.0) g/dL Assessment and Plan Plan: Assessment: 1. Acute kidney injury mostly prerenal secondary to cardiorenal syndrome. Renal function stable. Creatinine 1.57 today. No proteinuria on UA done December 2019. No hydronephrosis noted on abdominal ultrasound on November 2019. Kidneys were normal in size. 2. Chronic kidney disease stage III with baseline creatinine near 1.3-1.5. Etiology is nephrosclerosis. 3. Volume overload. Improving with diuresis. 4. Acute on chronic diastolic CHF. 5. History of DVT with chronic edema. Chronic partially occlusive DVT of the left lower extremity noted on imaging. Low evidence of PE on VQ scan. 6. History of hep C. 7. Acute on chronic systolic CHF with ejection fraction of 40-45%. Plan: Maintain Demadex 60 mg once daily. Low-salt diet and 1500 mL fluid restriction per day. Patient was advised to follow this diet outpatient as well. Repeat BMP and magnesium level 2-3 days postdischarge. Monitor his weight closely at home. To call if gains more than 3 pounds or edema worsens. Follow-up outpatient in 1 week.
[2020-03-11 11:19] VITALS: PULSE 69
[2020-03-11 11:40] LABS: Glucose,Whole Blood 242 mg/dL (75-99)
--- NOTE | 2020-03-11 12:04 | P.PN ---
Subjective Progress Note Date: 03/11/20 Principal diagnosis: Need of AC therapy, although allergies and A fib The reaction to anticoagulation appears to not be definitively related to his anticoagulation, Our recommendation would be prior to discharge to give Atarax, antihistamine (claritin) and the dose adjusted Xarelto dose. 10mg daily. Monitor and if no reactions while here ok to discharge on . Also can trial questran to reduce bile salt activated puritis. Platelets are 50K, again he will need close monitoring for s/s bleeding. Objective - Vital Signs Vital signs: Vital Signs Temp 97.7 F 03/11/20 08:57 Pulse 69 03/11/20 11:18 Resp 16 03/11/20 08:57 BP 128/80 03/11/20 08:57 Pulse Ox 95 03/11/20 08:57 Intake & Output 03/10/20 03/11/20 03/11/20 18:59 06:59 18:59 Intake Total 500 250 Output Total 400 700 Balance 100 -700 250 Intake: Oral 500 250 Output: Urine 400 700 Other: Voiding Method Toilet Toilet Toilet Urinal Urinal Urinal # Voids 2 1 1 - Labs CBC & Chem 7: 03/11/20 07:47 03/11/20 07:47 Labs: Abnormal Lab Results - Last 24 Hours (Table) 03/10/20 03/10/20 03/10/20 Range/Units 09:28 16:35 17:04 RBC 3.36 L (4.30-5.90) m/uL Hgb 11.7 L (13.0-17.5) gm/dL Hct 36.4 L (39.0-53.0) % MCV 108.4 H (80.0-100.0) fL MCH (25.0-35.0) pg RDW 15.9 H (11.5-15.5) % Plt Count 52 L (150-450) k/uL Lymphocytes # (1.0-4.8) k/uL Macrocytosis Marked A Sodium (137-145) mmol/L BUN (9-20) mg/dL Creatinine (0.66-1.25) mg/dL Glucose (74-99) mg/dL POC Glucose (mg/dL) 178 H (75-99) mg/dL Total Bilirubin 1.6 H (0.2-1.3) mg/dL Unconjugated Bilirubin 1.3 H (0.0-1.1) mg/dL Delta Bilirubin 0.3 H (0.0-0.2) mg/dL Alkaline Phosphatase 145 H (38-126) U/L Albumin 3.1 L (3.5-5.0) g/dL 03/10/20 03/11/20 03/11/20 Range/Units 19:57 06:37 07:47 RBC (4.30-5.90) m/uL Hgb (13.0-17.5) gm/dL Hct (39.0-53.0) % MCV (80.0-100.0) fL MCH (25.0-35.0) pg RDW (11.5-15.5) % Plt Count (150-450) k/uL Lymphocytes # (1.0-4.8) k/uL Macrocytosis Sodium 135 L (137-145) mmol/L BUN 30 H (9-20) mg/dL Creatinine 1.57 H (0.66-1.25) mg/dL Glucose 263 H (74-99) mg/dL POC Glucose (mg/dL) 298 H 226 H (75-99) mg/dL Total Bilirubin (0.2-1.3) mg/dL Unconjugated Bilirubin (0.0-1.1) mg/dL Delta Bilirubin (0.0-0.2) mg/dL Alkaline Phosphatase (38-126) U/L Albumin (3.5-5.0) g/dL 03/11/20 03/11/20 Range/Units 07:47 11:39 RBC 3.10 L (4.30-5.90) m/uL Hgb 11.4 L (13.0-17.5) gm/dL Hct 33.4 L (39.0-53.0) % MCV 107.5 H (80.0-100.0) fL MCH 36.6 H (25.0-35.0) pg RDW (11.5-15.5) % Plt Count 50 L (150-450) k/uL Lymphocytes # 0.6 L (1.0-4.8) k/uL Macrocytosis Marked A Sodium (137-145) mmol/L BUN (9-20) mg/dL Creatinine (0.66-1.25) mg/dL Glucose (74-99) mg/dL POC Glucose (mg/dL) 242 H (75-99) mg/dL Total Bilirubin (0.2-1.3) mg/dL Unconjugated Bilirubin (0.0-1.1) mg/dL Delta Bilirubin (0.0-0.2) mg/dL Alkaline Phosphatase (38-126) U/L Albumin (3.5-5.0) g/dL Assessment and Plan (1) Liver disease Current Visit: No Status: Acute Code(s): K76.9 - LIVER DISEASE, UNSPECIFIED SNOMED Code(s): 702297582 (2) Thrombocytopenia Current Visit: No Status: Acute Code(s): D69.6 - THROMBOCYTOPENIA, UNSPECIFIED SNOMED Code(s): 668256591 Plan: Ok to continue anticoagulation with close monitoring and platelets greater than 50K, re-education on risks with and without anti-coagulation. Chronic Partial occlusive DVT and Atrial fib Per cardiology no anti-coag due to thrombocytopenia. The reaction to anticoagulation appears to not be definitively related to his anticoagulation, Our recommendation would be prior to discharge to give Atarax, antihistamine (claritin) and the dose adjusted Xarelto dose. 10mg daily. Monitor and if no reactions while here ok to discharge on .
--- NOTE | 2020-03-12 20:02 | P.DS ---
Providers Date of admission: 03/11/20 09:32 Expected date of discharge: 03/11/20 Attending physician: Juanjo Ratliff Consults: 03/08/20 22:52 Consult Physician Stat Consulting Provider: Riley Thorpe Consult Reason/Comments: Bilateral lower extremity edema Do you want consulting provider notified?: Yes Consult Physician Stat Consulting Provider: Alex Card Consult Reason/Comments: Bilateral lower extremity edema Do you want consulting provider notified?: Yes 03/09/20 15:29 Consult Physician Urgent Consulting Provider: Dainel Matthews Consult Reason/Comments: anticoagulation Do you want consulting provider notified?: Yes Primary care physician: [facility] Course: Presenting complaint: Lower extremity edema Interval history: This is a patient who presented with lower extremity edema. Has chronic kidney disease. Baseline creatinine of 1.4 as of 12/20/2019. From nephrosclerosis. Presented with worsening of edema for 3-4 weeks. Edema has been felt to be from combination of chronic kidney disease, right ventricular failure and previous DVT in the left leg. Some element of acute kidney injury from cardiorenal syndrome.was given diuretics.creatinine did come down from 1.8 down to 1.57. Also found appearance COPD exacerbation. Given a burst of steroids bronchodilators. To which he responded well.seen by Dr. Matthews from oncology. okay to start the patient on low-dose xarelto in view of his low platelets. Today-breathing better. Discussed with the patient.discussed with oncology team about xarelto. Discussion and discharge planning more than 35 minutes Consultants: Dr. Meeks from nephrology Dr. Maxi Palomares from cardiology. Dr. Matthews from oncology On examination: VITAL SIGNS: 97.7, 84, 16, 128 bradycardia, 95% room air GENERAL APPEARANCE: sitting up, more comfortable EYES: Pupils equal. Conjunctiva normal. NECK: JVD not raised. Mass not palpable. RESPIRATORY: Respiratory effort increased, decreased breath sounds CARDIOVASCULAR: First and second sounds normal. Edema decreased ABDOMEN: Soft. Liver and spleen not palpable. No tenderness. No mass palpable. PSYCHIATRY: AO 3 mood and affect tired INVESTIGATIONS, reviewed in the clinical context: March 11: White count 4.2 hemoglobin 11.4 platelets 50 potassium 4.1 creatinine 1.57 White count 4.7 hemoglobin 11.7 platelets 52 potassium 3.8 bun 26 creatinine 1.51 2-D echocardiogram-EF 40-45%. Right ventricle is severely enlarged Assessment: -Possible cor pulmonale -Acute COPD exacerbation in an [id number] diagnosis -Chronic kidney disease likely stage III from nephrosclerosis -Acute kidney injury prerenal from cardiorenal syndrome -Obesity BMI 39.6 -Chronic gout -Compensated cirrhosis secondary to hepatitis C -Pancytopenia likely due to cirrhosis, workup in place by hematology -GERD -Essential hypertension -Acute on Chronic congestive heart failure from systolic dysfunction EF 40-45% -Abdominal aortic aneurysm endovascular repair status post -Paroxysmal atrial fibrillation- had been on pradaxa by cardiology. In the past disposition: Home Patient Condition at Discharge: Stable Plan - Discharge Summary New Discharge Prescriptions: New predniSONE 0 mg PO DIRECTED #10 tab Rivaroxaban [Xarelto] 10 mg PO DAILY #30 tab Continue Budesonide-Formot 160-4.5 Mcg [Symbicort 160-4.5 Mcg Inhaler] 2 puff INHALATION RT-BID Cholecalciferol [Vitamin D3 (25 Mcg = 1000 Iu)] 1,000 unit PO DAILY Albuterol Sulfate [Ventolin HFA] 1 - 2 puff INHALATION RT-Q6H PRN PRN Reason: Shortness Of Breath Nitroglycerin Sl Tabs [Nitrostat] 0.4 mg PO Q5M PRN PRN Reason: Chest Pain carvediloL [Coreg] 6.25 mg PO BID-W/MEALS #60 tab Cyanocobalamin [Vitamin B-12] 1,000 mcg PO DAILY #30 tab Ipratropium-Albuterol Nebulize [Duoneb 0.5 mg-3 mg/3 ml Soln] 3 ml INHALATION RT-Q6H PRN #120 neb PRN Reason: Shortness Of Breath Folic Acid 1 mg PO DAILY Spironolactone [Aldactone] 50 mg PO DAILY Thiamine [Vitamin B-1] 50 mg PO DAILY Changed Torsemide [Demadex] 60 mg PO DAILY #90 tab Discharge Medication List Budesonide-Formot 160-4.5 Mcg [Symbicort 160-4.5 Mcg Inhaler] 2 puff INHALATION RT-BID 05/11/19 [History] Cholecalciferol [Vitamin D3 (25 Mcg = 1000 Iu)] 1,000 unit PO DAILY 05/11/19 [History] Albuterol Sulfate [Ventolin HFA] 1 - 2 puff INHALATION RT-Q6H PRN 08/31/19 [History] Nitroglycerin Sl Tabs [Nitrostat] 0.4 mg PO Q5M PRN 08/31/19 [History] Cyanocobalamin [Vitamin B-12] 1,000 mcg PO DAILY #30 tab 11/23/19 [Rx] carvediloL [Coreg] 6.25 mg PO BID-W/MEALS #60 tab 11/23/19 [Rx] Ipratropium-Albuterol Nebulize [Duoneb 0.5 mg-3 mg/3 ml Soln] 3 ml INHALATION RT-Q6H PRN #120 neb 12/20/19 [Rx] Folic Acid 1 mg PO DAILY 01/09/20 [History] Spironolactone [Aldactone] 50 mg PO DAILY 01/09/20 [History] Thiamine [Vitamin B-1] 50 mg PO DAILY 01/09/20 [History] Rivaroxaban [Xarelto] 10 mg PO DAILY #30 tab 03/11/20 [Rx] Torsemide [Demadex] 60 mg PO DAILY #90 tab 03/11/20 [Rx] predniSONE 0 mg PO DIRECTED #10 tab 03/11/20 [Rx] Follow up Appointment(s)/Referral(s): cardiology, [Other] - 1 Week Marianne Post MD [STAFF PHYSICIAN] - 03/31/20 9:00 am (Telephone visit) Aristides Mena DO [Primary Care Provider] - 03/18/20 10:30 am Patient Instructions/Handouts: Heart Failure (DC), Heart Healthy Diet (DC) Activity/Diet/Wound Care/Special Instructions: fluid restriction - 1800 cc/day bmp - 5 days Discharge Disposition: HOME SELF-CARE
== END 2020-03-11 13:10 | disposition home or self-care (01) | DRG 291 ==
LOC: EC 20:27 → 1SOBS 22:51 → OBSVTOIN 03-11 09:32
PROVIDERS: ADMIT Hospitalist; ATTEND Hospitalist
DX: I13.0 Hypertensive heart and chronic kidney disease with heart failure and stage 1 through stage 4 chronic kidney disease, or unspecified chronic kidney disease (principal); I50.23 Acute on chronic systolic (congestive) heart failure; J44.1 Chronic obstructive pulmonary disease with (acute) exacerbation; Z68.41 Body mass index [BMI] 40.0-44.9, adult; I82.502 Chronic embolism and thrombosis of unspecified deep veins of left lower extremity; N17.9 Acute kidney failure, unspecified; D61.818 Other pancytopenia; B18.2 Chronic viral hepatitis C; I48.0 Paroxysmal atrial fibrillation; I27.81 Cor pulmonale (chronic); E11.22 Type 2 diabetes mellitus with diabetic chronic kidney disease; K74.60 Unspecified cirrhosis of liver; I42.8 Other cardiomyopathies; I27.29 Other secondary pulmonary hypertension; I25.10 Atherosclerotic heart disease of native coronary artery without angina pectoris; N18.32 Chronic kidney disease, stage 3b; D69.59 Other secondary thrombocytopenia; E66.9 Obesity, unspecified; K21.9 Gastro-esophageal reflux disease without esophagitis; G47.30 Sleep apnea, unspecified; M1A.9XX0 Chronic gout, unspecified, without tophus (tophi); G89.29 Other chronic pain; M54.5 Low back pain; M54.2 Cervicalgia; M19.90 Unspecified osteoarthritis, unspecified site; F32.9 Major depressive disorder, single episode, unspecified; Z90.81 Acquired absence of spleen; Z98.42 Cataract extraction status, left eye; Z98.41 Cataract extraction status, right eye; Z96.1 Presence of intraocular lens; Z98.890 Other specified postprocedural states; Z88.5 Allergy status to narcotic agent; Z88.8 Allergy status to other drugs, medicaments and biological substances; Z79.51 Long term (current) use of inhaled steroids; Z79.899 Other long term (current) drug therapy; Z87.891 Personal history of nicotine dependence; Z87.01 Personal history of pneumonia (recurrent); Z86.79 Personal history of other diseases of the circulatory system; Z87.09 Personal history of other diseases of the respiratory system; Z87.440 Personal history of urinary (tract) infections; Z86.19 Personal history of other infectious and parasitic diseases; Z80.0 Family history of malignant neoplasm of digestive organs; Z82.49 Family history of ischemic heart disease and other diseases of the circulatory system
CPT/HCPCS: 36415; 71046; 78582; 80048; 80053; 80076; 82140; 83615; 83735; 83880; 84484; 85025; 85379; 85610; 85730; 93005; 93306; 93970; 94640; 96374; 99284

== ENCOUNTER 2020-07-23 12:53 | Observation (INO) | payer MEDICARE ==
[2020-07-23 13:54] LABS: Albumin 3.3 g/dL (3.5-5.0); Calcium 9.3 mg/dL (8.4-10.2); Total Protein 6.8 g/dL (6.3-8.2)
[2020-07-23 13:55] LABS: Total Bilirubin 1.2 mg/dL (0.2-1.3)
[2020-07-23 13:58] LABS: INR 1.1 (<1.2); Partial Thromboplastin Time 28.7 sec (22.0-30.0)
[2020-07-23 14:02] LABS: Basophils % (A) 0 %; Eosinophils # (A) 0.2 k/uL (0-0.7); Eosinophils % (A) 5 %; HCT 34.5 % (39.0-53.0); HGB 12.2 gm/dL (13.0-17.5); Lymphocytes % (A) 22 %; MCH 36.8 pg (25.0-35.0); MCHC 35.4 g/dL (31.0-37.0); MCV 103.9 fL (80.0-100.0); Macrocytosis Slight; Mean Platelet Volume 9.1; Monocytes # (A) 0.4 k/uL (0-1.0); Monocytes % (A) 9 %; Neutrophils # (A) 2.9 k/uL (1.3-7.7); Neutrophils % (A) 62 %; RBC 3.32 m/uL (4.30-5.90); RDW 15.2 % (11.5-15.5); WBC 4.6 k/uL (3.8-10.6)
--- NOTE | 2020-07-23 14:04 | XR ---
EXAMINATION TYPE: XR chest 2V DATE OF EXAM: 07/23/2020 COMPARISON: 03/08/2020 HISTORY: Shortness of breath, history of COPD TECHNIQUE: Frontal and lateral views of the chest are obtained. FINDINGS: Heart size is within normal limits. Bibasilar hazy airspace opacities likely due to overly ing soft tissues. No focal consolidation, pneumothorax or pleural effusion. Hyperinflation lungs and flattening of the diaphragms suggestive of COPD. Degenerative changes of the thoracic spine. IMPRESSION: 1. No acute pulmonary disease.
[2020-07-23 14:19] LABS: Potassium 4.3 mmol/L (3.5-5.1)
[2020-07-23 14:40] LABS: Platelet Count 48 k/uL (150-450)
[2020-07-23 14:41] LABS: Anisocytosis (M) Present; Poikilocytosis (M) Present
[2020-07-23] MEDS ORDERED: FUROSEMIDE 10 MG/ML 10 ML VIAL IV STA (14:48)
--- NOTE | 2020-07-23 14:50 | ED ---
General Adult HPI - General Chief complaint: Shortness of Breath Stated complaint: SOB Time Seen by Provider: 07/23/20 13:15 Source: patient, RN notes reviewed, old records reviewed Mode of arrival: wheelchair Limitations: no limitations - History of Present Illness Initial comments: This is a 70-year-old male who presents emergency Department complaining of difficulty breathing. Patient states she has a past medical history significant for diabetes hypertension and COPD. Patient is taking his been continuous over the last few days and has not been helping his breathing at all. Patient states she's also noticed increased swelling of his legs. Patient states he doesn't believe he has a history of congestive heart failure he denies any heart attack history. Patient denies any recent fever chills per patient states he did not get the COVID vaccine. Patient denies headache patient denies numbness weakness. Patient denies any lightheadedness or dizziness. - Related Data Home Medications Medication Instructions Recorded Confirmed Budesonide-Formot 160-4.5 Mcg 2 puff INHALATION RT-BID 05/11/19 03/08/20 [Symbicort 160-4.5 Mcg Inhaler] Cholecalciferol [Vitamin D3 (25 1,000 unit PO DAILY 05/11/19 03/08/20 Mcg = 1000 Iu)] Albuterol Sulfate [Ventolin HFA] 1 - 2 puff INHALATION RT-Q6H PRN 08/31/19 03/08/20 Nitroglycerin Sl Tabs [Nitrostat] 0.4 mg PO Q5M PRN 08/31/19 03/08/20 Folic Acid 1 mg PO DAILY 01/09/20 03/08/20 Spironolactone [Aldactone] 50 mg PO DAILY 01/09/20 03/08/20 Thiamine [Vitamin B-1] 50 mg PO DAILY 01/09/20 03/08/20 Previous Rx's Medication Instructions Recorded Cyanocobalamin [Vitamin B-12] 1,000 mcg PO DAILY #30 tab 11/23/19 carvediloL [Coreg] 6.25 mg PO BID-W/MEALS #60 tab 11/23/19 Ipratropium-Albuterol Nebulize 3 ml INHALATION RT-Q6H PRN #120 neb 12/20/19 [Duoneb 0.5 mg-3 mg/3 ml Soln] Rivaroxaban [Xarelto] 10 mg PO DAILY #30 tab 03/11/20 Torsemide [Demadex] 60 mg PO DAILY #90 tab 03/11/20 predniSONE 0 mg PO DIRECTED #10 tab 03/11/20 Allergies Allergy/AdvReac Type Severity Reaction Status Date / Time codeine Allergy Rash/Hives Verified 07/23/20 13:14 ibuprofen Allergy Unknown Verified 07/23/20 13:14 apixaban [From Eliquis] AdvReac Rash/Hives Verified 07/23/20 13:14 dabigatran etexilate AdvReac Rash/Hives Verified 07/23/20 13:14 [From Pradaxa] midodrine AdvReac Rash/Hives Verified 07/23/20 13:14 Review of Systems ROS Statement: Those systems with pertinent positive or pertinent negative responses have been documented in the HPI. ROS Other: All systems not noted in ROS Statement are negative. Past Medical History Past Medical History: Atrial Fibrillation, Asthma, Heart Failure, COPD, GERD/Reflux, Hypertension, Liver Disease, Osteoarthritis (OA), Pneumonia, Renal Disease Additional Past Medical History / Comment(s): Pt recently admitted to [facility] with lower blood pressure/L wrist pain. Other hx: Pt states L wrist pain now goes all the way up L arm, recent AAA surgery, chronic chf, bronchitis, liver cirrhosis, hepatitis C treated 3 times, CKD stage III, anemia, thrombocytopenia, pancytopenia-pt recently saw Dr. Matthews, pt states recently told he has diabetes, numbness R lower leg, chronic gout bilateral feet, UTI, chronic low back pain, cervical pain History of Any Multi-Drug Resistant Organisms: None Reported Past Surgical History: Heart Catheterization, Hernia Repair, Orthopedic Surgery Additional Past Surgical History / Comment(s): Percutaneous endovascjlar abdominal aortic anuerysm repair, EGD, colonoscopies, bilateral cataract removals/lens implants, R shoulder rotator cuff repair, umbilical hernia repair. Past Anesthesia/Blood Transfusion Reactions: Motion Sickness Additional Past Anesthesia/Blood Transfusion Reaction / Comment(s): Pt has received blood without reaction. Past Psychological History: No Psychological Hx Reported Smoking Status: Former smoker Past Alcohol Use History: None Reported Past Drug Use History: Marijuana - Past Family History Mother Family Medical History: Cancer Additional Family Medical History / Comment(s): Mother of liver cancer. Father Family Medical History: Myocardial Infarction (NH) Additional Family Medical History / Comment(s): Father of a NH at the age of 48yrs. General Exam - General Exam Comments Initial Comments: GENERAL: Patient is well-developed and well-nourished. Patient is nontoxic and well- hydrated and is in mild distress. ENT: Neck is soft and supple. No significant lymphadenopathy is noted. Oropharynx is clear. Moist mucous membranes. Neck has full range of motion without eliciting any pain. EYES: The sclera were anicteric and conjunctiva were pink and moist. Extraocular movements were intact and pupils were equal round and reactive to light. Eyelids were unremarkable. PULMONARY: Unlabored respirations. Good breath sounds bilaterally. Patient has crackles bilateral bases with expiratory wheezing. CARDIOVASCULAR: There is a regular rate and rhythm without any murmurs gallops or rubs. ABDOMEN: Soft and nontender with normal bowel sounds. No palpable organomegaly was noted. There is no palpable pulsatile mass. SKIN: Skin is clear with no lesions or rashes and otherwise unremarkable. NEUROLOGIC: Patient is alert and oriented x3. Cranial nerves II through XII are grossly intact. Motor and sensory are also intact. Normal speech, volume and content. Symmetrical smile. MUSCULOSKELETAL: Normal extremities with adequate strength and full range of motion. 2+ edema bilateral LYMPHATICS: No significant lymphadenopathy is noted PSYCHIATRIC: Normal psychiatric evaluation. Limitations: no limitations Course Vital Signs 07/23/20 07/23/20 07/23/20 13:11 15:00 15:25 Temperature 97.4 F L Pulse Rate 77 89 86 Respiratory 22 22 28 H Rate Blood Pressure 124/66 150/93 O2 Sat by Pulse 94 L 98 Oximetry Medical Decision Making - Medical Decision Making EKG shows sinus rhythm with occasional PVC at 72 bpm DE interval 180 QRS is 90 QT interval 394 QTC is 431 per patient's EKG shows no ST segment elevation or depression. Patient received 3 breathing treatments in the emergency department as well as steroids. Patient's breathing did improve however. Patient also received Lasix for the edema in his legs. Chest x-ray shows no acute abnormality. Patient is going to be admitted for COPD exacerbation I spoke with Dr. Royal agreed to admit the patient wrote admitting orders and I continued the breathing treatments as well as a steroids on the floor. - Lab Data Result diagrams: 07/23/20 13:27 07/23/20 13:27 Lab Results 07/23/20 07/23/20 07/23/20 Range/Units 13:15 13:27 13:27 WBC 4.6 (3.8-10.6) k/uL RBC 3.32 L (4.30-5.90) m/uL Hgb 12.2 L (13.0-17.5) gm/dL Hct 34.5 L (39.0-53.0) % MCV 103.9 H (80.0-100.0) fL MCH 36.8 H (25.0-35.0) pg MCHC 35.4 (31.0-37.0) g/dL RDW 15.2 (11.5-15.5) % Plt Count 48 L (150-450) k/uL MPV 9.1 Neutrophils % 62 % Lymphocytes % 22 % Monocytes % 9 % Eosinophils % 5 % Basophils % 0 % Neutrophils # 2.9 (1.3-7.7) k/uL Lymphocytes # 1.0 (1.0-4.8) k/uL Monocytes # 0.4 (0-1.0) k/uL Eosinophils # 0.2 (0-0.7) k/uL Basophils # 0.0 (0-0.2) k/uL Manual Slide Review Performed Poikilocytosis (manual Present Anisocytosis (manual) Present Macrocytosis Slight PT 12.0 (9.0-12.0) sec INR 1.1 (<1.2) APTT 28.7 (22.0-30.0) sec Sodium (137-145) mmol/L Potassium (3.5-5.1) mmol/L Chloride (98-107) mmol/L Carbon Dioxide (22-30) mmol/L Anion Gap mmol/L BUN (9-20) mg/dL Creatinine (0.66-1.25) mg/dL Est GFR (CKD-EPI)AfAm (>60 ml/min/1.73 sqM) Est GFR (CKD-EPI)NonAf (>60 ml/min/1.73 sqM) Glucose (74-99) mg/dL Plasma Lactic Acid Gpoi (0.7-2.0) mmol/L Calcium (8.4-10.2) mg/dL Total Bilirubin (0.2-1.3) mg/dL AST (17-59) U/L ALT (4-49) U/L Alkaline Phosphatase (38-126) U/L Troponin I (0.000-0.034) ng/mL NT-Pro-B Natriuret Pep 166 pg/mL Total Protein (6.3-8.2) g/dL Albumin (3.5-5.0) g/dL Coronavirus (PCR) (Not Detectd) 07/23/20 07/23/20 07/23/20 Range/Units 13:27 13:27 13:27 WBC (3.8-10.6) k/uL RBC (4.30-5.90) m/uL Hgb (13.0-17.5) gm/dL Hct (39.0-53.0) % MCV (80.0-100.0) fL MCH (25.0-35.0) pg MCHC (31.0-37.0) g/dL RDW (11.5-15.5) % Plt Count (150-450) k/uL MPV Neutrophils % % Lymphocytes % % Monocytes % % Eosinophils % % Basophils % % Neutrophils # (1.3-7.7) k/uL Lymphocytes # (1.0-4.8) k/uL Monocytes # (0-1.0) k/uL Eosinophils # (0-0.7) k/uL Basophils # (0-0.2) k/uL Manual Slide Review Poikilocytosis (manual Anisocytosis (manual) Macrocytosis PT (9.0-12.0) sec INR (<1.2) APTT (22.0-30.0) sec Sodium 132 L (137-145) mmol/L Potassium 4.3 (3.5-5.1) mmol/L Chloride 98 (98-107) mmol/L Carbon Dioxide 25 (22-30) mmol/L Anion Gap 9 mmol/L BUN 37 H (9-20) mg/dL Creatinine 1.52 H (0.66-1.25) mg/dL Est GFR (CKD-EPI)AfAm 53 (>60 ml/min/1.73 sqM) Est GFR (CKD-EPI)NonAf 46 (>60 ml/min/1.73 sqM) Glucose 313 H (74-99) mg/dL Plasma Lactic Acid Gopi 1.6 (0.7-2.0) mmol/L Calcium 9.3 (8.4-10.2) mg/dL Total Bilirubin 1.2 (0.2-1.3) mg/dL AST 32 (17-59) U/L ALT 20 (4-49) U/L Alkaline Phosphatase 127 H (38-126) U/L Troponin I <0.012 (0.000-0.034) ng/mL NT-Pro-B Natriuret Pep pg/mL Total Protein 6.8 (6.3-8.2) g/dL Albumin 3.3 L (3.5-5.0) g/dL Coronavirus (PCR) (Not Detectd) 07/23/20 Range/Units 15:00 WBC (3.8-10.6) k/uL RBC (4.30-5.90) m/uL Hgb (13.0-17.5) gm/dL Hct (39.0-53.0) % MCV (80.0-100.0) fL MCH (25.0-35.0) pg MCHC (31.0-37.0) g/dL RDW (11.5-15.5) % Plt Count (150-450) k/uL MPV Neutrophils % % Lymphocytes % % Monocytes % % Eosinophils % % Basophils % % Neutrophils # (1.3-7.7) k/uL Lymphocytes # (1.0-4.8) k/uL Monocytes # (0-1.0) k/uL Eosinophils # (0-0.7) k/uL Basophils # (0-0.2) k/uL Manual Slide Review Poikilocytosis (manual Anisocytosis (manual) Macrocytosis PT (9.0-12.0) sec INR (<1.2) APTT (22.0-30.0) sec Sodium (137-145) mmol/L Potassium (3.5-5.1) mmol/L Chloride (98-107) mmol/L Carbon Dioxide (22-30) mmol/L Anion Gap mmol/L BUN (9-20) mg/dL Creatinine (0.66-1.25) mg/dL Est GFR (CKD-EPI)AfAm (>60 ml/min/1.73 sqM) Est GFR (CKD-EPI)NonAf (>60 ml/min/1.73 sqM) Glucose (74-99) mg/dL Plasma Lactic Acid Gopi (0.7-2.0) mmol/L Calcium (8.4-10.2) mg/dL Total Bilirubin (0.2-1.3) mg/dL AST (17-59) U/L ALT (4-49) U/L Alkaline Phosphatase (38-126) U/L Troponin I (0.000-0.034) ng/mL NT-Pro-B Natriuret Pep pg/mL Total Protein (6.3-8.2) g/dL Albumin (3.5-5.0) g/dL Coronavirus (PCR) Not Detected (Not Detectd) Critical Care Time Critical Care Time: Yes Total Critical Care Time: 35 Disposition Clinical Impression: COPD exacerbation, Pedal edema Disposition: ADMITTED IP TO THIS HOSP Referrals: Aristides Mena DO [Primary Care Provider] - 1-2 days Time of Disposition: 15:52
[2020-07-23] MEDS ORDERED: ALBUTEROL NEBULIZED 7.5 MG, IPRATROPIUM NEBULIZED 0.5 MG, SODIUM CHLORIDE 0.9% NEBULIZ ... INHALATION ONE ×3 (15:06)
[2020-07-23] MEDS ORDERED: methylPREDNISolone SOD SUCCI 125 MG/2 ML VIAL IV STA (15:07)
[2020-07-23] MEDS ORDERED: IPRATROPIUM-ALBUTEROL 3 ML NEB INHALATION PRN ×2 (15:52→18:15)
[2020-07-23 17:19] LABS: Glucose,Whole Blood 199 mg/dL (75-99)
[2020-07-23] MEDS: INSULIN ASPART (NovoLOG) 100 UNIT/ML VIAL SQ SCH ×2 (17:51→23:19)
[2020-07-23] MEDS ORDERED: NITROGLYCERIN SL TABS 0.4 MG TAB SUBLINGUAL PRN (18:11)
--- NOTE | 2020-07-23 18:55 | P.HPIM ---
History of Present Illness Pleasant 69-year-old male with a known history of cirrhosis secondary to hepatitis C states that he is in remission since he is receiving NEWER medications for hepatitis C. Patient given with increased swelling in both legs patient is alcohol related secondary to cirrhosis. Patient also comparing of some shortness of breath orthopnea has minimal expiratory wheezing does have history of COPD does have some rhonchi as well patient was started on oral antibiotics in ER. Patient denied any lightheadedness dizziness. Patient loaiza sn't have any pulmonary edema on the chest x-ray, echo cardiac showed normal ejection fraction the past although patient apparently has diagnosed of chronic diastolic dysfunction. Patient doesn't have any JVD but does have extensive peripheral edema. BNP is not elevated. Patient was comparing of cough with clear sputum production. Patient does have history of sleep apnea Review of Systems REVIEW OF SYSTEMS: CONSTITUTIONAL: No fever, no malaise, no fatigue. HEENT: No recent visual problems or hearing problems. Denied any sore throat. CARDIOVASCULAR: No chest pain, orthopnea, PND, no palpitations, no syncope. PULMONARYno hemoptysis. GASTROINTESTINAL: No diarrhea, no nausea, no vomiting, no abdominal pain. NEUROLOGICAL: No headaches, no weakness, no numbness. HEMATOLOGICAL: Denies any bleeding or petechiae. GENITOURINARY: Denies any burning micturition, frequency, or urgency. MUSCULOSKELETAL/RHEUMATOLOGICAL: Denies any joint pain, swelling, or any muscle pain. ENDOCRINE: Denies any polyuria or polydipsia. The rest of the 14-point review of systems is negative. Past Medical History Past Medical History: Atrial Fibrillation, Asthma, Heart Failure, COPD, GERD/Reflux, Hypertension, Liver Disease, Osteoarthritis (OA), Pneumonia, Renal Disease Additional Past Medical History / Comment(s): Pt recently admitted to [facility] with lower blood pressure/L wrist pain. Other hx: Pt states L wrist pain now goes all the way up L arm, recent AAA surgery, chronic chf, bronchitis, liver cirrhosis, hepatitis C treated 3 times, CKD stage III, anemia, thrombocytopenia, pancytopenia-pt recently saw Dr. Matthews, pt states recently told he has diabetes, numbness R lower leg, chronic gout bilateral feet, UTI, chronic low back pain, cervical pain History of Any Multi-Drug Resistant Organisms: None Reported Past Surgical History: Heart Catheterization, Hernia Repair, Orthopedic Surgery Additional Past Surgical History / Comment(s): Percutaneous endovascjlar abdominal aortic anuerysm repair, EGD, colonoscopies, bilateral cataract removals/lens implants, R shoulder rotator cuff repair, umbilical hernia repair. Past Anesthesia/Blood Transfusion Reactions: Motion Sickness Additional Past Anesthesia/Blood Transfusion Reaction / Comment(s): Pt has received blood without reaction. Past Psychological History: No Psychological Hx Reported Smoking Status: Former smoker Past Alcohol Use History: None Reported Past Drug Use History: Marijuana - Past Family History Mother Family Medical History: Cancer Additional Family Medical History / Comment(s): Mother of liver cancer. Father Family Medical History: Myocardial Infarction ([place]) Additional Family Medical History / Comment(s): Father of a [place] at the age of 48yrs. Medications and Allergies Home Medications Medication Instructions Recorded Confirmed Type Cholecalciferol [Vitamin D3 (25 2,000 unit PO DAILY 05/11/19 07/23/20 History Mcg = 1000 Iu)] Nitroglycerin Sl Tabs [Nitrostat] 0.4 mg PO Q5M PRN 08/31/19 07/23/20 History Cyanocobalamin [Vitamin B-12] 1,000 mcg PO DAILY #30 tab 11/23/19 07/23/20 Rx carvediloL [Coreg] 6.25 mg PO BID-W/MEALS #60 tab 11/23/19 07/23/20 Rx Folic Acid 1 mg PO DAILY 01/09/20 07/23/20 History Spironolactone [Aldactone] 25 mg PO BID@0800,1200 01/09/20 07/23/20 History Thiamine [Vitamin B-1] 50 mg PO DAILY 01/09/20 07/23/20 History Allopurinol [Zyloprim] 100 mg PO DAILY 07/23/20 07/23/20 History Rivaroxaban [Xarelto] 10 mg PO HS 07/23/20 07/23/20 History Torsemide [Demadex] 20 mg PO DAILY@1200 07/23/20 07/23/20 History Torsemide [Demadex] 40 mg PO DAILY 07/23/20 07/23/20 History Allergies Allergy/AdvReac Type Severity Reaction Status Date / Time codeine Allergy Rash/Hives Verified 07/23/20 16:23 ibuprofen Allergy Unknown Verified 07/23/20 16:23 apixaban [From Eliquis] AdvReac Rash/Hives Verified 07/23/20 16:23 dabigatran etexilate AdvReac Rash/Hives Verified 07/23/20 16:23 [From Pradaxa] midodrine AdvReac Rash/Hives Verified 07/23/20 16:23 Physical Exam Vitals: Vital Signs Temp Pulse Resp BP Pulse Ox 07/23/20 17:00 98.8 F 94 21 128/80 96 07/23/20 16:02 95 28 H 07/23/20 16:00 91 17 107/72 99 07/23/20 15:25 86 28 H 07/23/20 15:00 89 22 150/93 98 07/23/20 13:11 97.4 F L 77 22 124/66 94 L Intake and Output 07/23/20 07/23/20 07/23/20 06:59 14:59 22:59 Other: Weight 142.882 kg PHYSICAL EXAMINATION: GENERAL: The patient is alert and oriented x3, not in any acute distress. Obese HEENT: Pupils are round and equally reacting to light. EOMI. No scleral icterus. No conjunctival pallor. Normocephalic, atraumatic. No pharyngeal erythema. No th yromegaly. CARDIOVASCULAR: S1 and S2 present. No murmurs, rubs, or gallops. PULMONARY: Expiratory wheezing with the diffuse bilateral rhonchi ABDOMEN: Soft, nontender, nondistended, normoactive bowel sounds. No palpable organomegaly. MUSCULOSKELETAL: No joint swelling or deformity. EXTREMITIES: No cyanosis, clubbing, or pedal edema. NEUROLOGICAL: Gross neurological examination did not reveal any focal deficits. SKIN: No rashes. Results CBC & Chem 7: 07/23/20 13:27 07/23/20 13:27 Labs: Abnormal Lab Results - Last 24 Hours (Table) 07/23/20 07/23/20 07/23/20 Range/Units 13:27 13:27 17:17 RBC 3.32 L (4.30-5.90) m/uL Hgb 12.2 L (13.0-17.5) gm/dL Hct 34.5 L (39.0-53.0) % MCV 103.9 H (80.0-100.0) fL MCH 36.8 H (25.0-35.0) pg Plt Count 48 L (150-450) k/uL Sodium 132 L (137-145) mmol/L BUN 37 H (9-20) mg/dL Creatinine 1.52 H (0.66-1.25) mg/dL Glucose 313 H (74-99) mg/dL POC Glucose (mg/dL) 199 H (75-99) mg/dL Alkaline Phosphatase 127 H (38-126) U/L Albumin 3.3 L (3.5-5.0) g/dL Assessment and Plan Plan: -Bilateral lower extremity edema, volume overload: Secondary to cirrhosis patient will be started on IV Lasix will monitor kidney function. -Shortness of breath multifactorial because of his obesity, sleep apnea and restrictive lung disease along with mild COPD exacerbation and mild bronchitis continue with antibiotics patient was switched to oral steroids from IV steroids and continue with inhalational treatments pulmonary was consulted -History of atrial fibrillation presently sinus rhythm rate controlled continue with anticoagulation continue with his rate control medications -History of congestive heart failure chronic diastolic dysfunction presently not in acute exacerbation -COPD with mild acute exacerbation -Hypertension -Chronic kidney disease stage III probably either hepatorenal hypertensive nephrosclerosis -Gastroesophageal reflux disease
[2020-07-23] MEDS: BUDESONIDE 0.5 MG/2 ML NEBU INHALATION SCH (20:41)
[2020-07-23] MEDS: IPRATROPIUM-ALBUTEROL 3 ML NEB INHALATION SCH (20:41)
[2020-07-23 21:27] LABS: Glucose,Whole Blood 307 mg/dL (75-99)
[2020-07-23] MEDS: RIVAROXABAN 10 MG TAB PO SCH (21:32)
[2020-07-23] MEDS: FUROSEMIDE 10 MG/ML 10 ML VIAL IV SCH (21:35)
[2020-07-23] MEDS ORDERED: methylPREDNISolone SOD SUCCI 125 MG/2 ML VIAL IV SCH (22:00)
[2020-07-23] MEDS: CEFDINIR 300 MG CAP PO SCH (22:04)
[2020-07-23 23:17] LABS: Glucose,Whole Blood 332 mg/dL (75-99)
[2020-07-24 00:13] LABS: Glucose,Whole Blood 372 mg/dL (75-99)
[2020-07-24 08:05] LABS: Glucose,Whole Blood 379 mg/dL (75-99)
[2020-07-24] MEDS: IPRATROPIUM-ALBUTEROL 3 ML NEB INHALATION SCH ×4 (08:08→20:51)
[2020-07-24] MEDS: BUDESONIDE 0.5 MG/2 ML NEBU INHALATION SCH (08:08)
[2020-07-24] MEDS: THIAMINE 100 MG TAB PO SCH (08:25)
[2020-07-24] MEDS: SPIRONOLACTONE 25 MG TAB PO SCH ×2 (08:25→12:47)
[2020-07-24] MEDS: CHOLECALCIFEROL 25 MCG (1000 IU) TABLET PO SCH (08:25)
[2020-07-24] MEDS: FOLIC ACID 1 MG TAB PO SCH (08:25)
[2020-07-24] MEDS: allopurinoL 100 MG TAB PO SCH (08:25)
[2020-07-24] MEDS: carvediloL 6.25 MG TAB PO SCH ×2 (08:25→18:14)
[2020-07-24] MEDS: FUROSEMIDE 10 MG/ML 10 ML VIAL IV SCH ×2 (08:26→21:49)
[2020-07-24] MEDS: INSULIN ASPART (NovoLOG) 100 UNIT/ML VIAL SQ SCH ×4 (08:26→21:34)
[2020-07-24] MEDS: CEFDINIR 300 MG CAP PO SCH ×2 (08:35→22:06)
[2020-07-24] MEDS ORDERED: predniSONE 20 MG TAB PO SCH (09:00)
[2020-07-24] MEDS ORDERED: IPRATROPIUM-ALBUTEROL 3 ML NEB INHALATION PRN (10:51)
[2020-07-24 11:57] LABS: Glucose,Whole Blood 346 mg/dL (75-99)
[2020-07-24] MEDS ORDERED: IPRATROPIUM-ALBUTEROL 3 ML NEB INHALATION SCH (12:00)
[2020-07-24 12:28] LABS: HCT 32.6 % (39.6-50.0); HGB 10.7 g/dL (13.0-17.0); MCHC 32.8 g/dL (32.0-37.0); MCV 106.5 fL (80.0-97.0); Macrocytosis (M) 2+; Mean Platelet Volume 13.4 fL (9.5-12.2); Platelet Count 43 X 10*3/uL (140-440); RBC 3.06 X 10*6/uL (4.40-5.60); RDW 14.9 % (11.5-14.5); WBC 3.68 X 10*3/uL (4.50-10.00)
--- NOTE | 2020-07-24 12:28 | P.CNPUL ---
History of Present Illness Consult date: 07/24/20 Requesting physician: [facility] Reason for consult: dyspnea, COPD, hypoxemia Chief complaint: Shortness of breath, COPD exacerbation. History of present illness: Pulmonary consult dated 07/24/2020. 70-year-old male, who is evaluated in the emergency department, with complaints of shortness of breath. The patient does have a history of diabetes mellitus, essential hypertension, and COPD from previous tobacco use. Apparently he hasn't smoked for about 12 or 13 years. In addition to shortness of breath, patient states that he's been having some lower extremity edema. He denies any fever or chills. He is not coughing up any phlegm. He denies any nausea, vomiting, diarrhea or abdominal pain. The patient was admitted apparently with a diagnosis of COPD exacerbation, which is why we are consulted. It see my partner in the past following some sort of surgical procedure. The patient typically is on Symbicort, and updrafts with albuterol and ipratropium bromide. In addition, he has a history of atrial fibrillation, heart failure, GERD, osteoarthritis, and chronic kidney disease. I believe when he saw my partner recently, the patient was having a recent abdominal aortic aneurysm stent placement. White count 4.6, hemoglobin 12.2, hematocrit 34.5, and platelet count 48,000. PT, INR, and PTT are all normal. Sodium 132, potassium 4.3, chlorides 98, CO2 25, anion gap 9, BUN 37, and creatinine 1.52. Chest x-ray shows hyperinflation, and flattening of the diaphragms consistent with COPD, but no active cardiopulmonary disease. Review of Systems REVIEW OF SYSTEMS: CONSTITUTIONAL: [Negative.] NEUROLOGIC: [ Negative.] HEENT: [ Negative.] CARDIAC: Lower extremity edema. PULMONARY: Shortness of breath, both at rest and with exertion. GI: [Negative.] : [Negative.] RHEUMATOLOGIC: [ Negative.] IMMUNOLOGIC: [ Negative.] ENDOCRINE: [Negative. ] DERMATOLOGIC: [Negative.] Past Medical History Past Medical History: Atrial Fibrillation, Asthma, Heart Failure, COPD, Deep Vein Thrombosis (DVT), GERD/Reflux, Hypertension, Liver Disease, Osteoarthritis (OA), Pneumonia, Renal Disease Additional Past Medical History / Comment(s): Other hx: Pt states L wrist pain now goes all the way up L arm, recent AAA surgery, chronic chf, bronchitis, liver cirrhosis, hepatitis C treated 3 times, CKD stage III, anemia, thrombocytopenia, pancytopenia-pt recently saw Dr. Matthews, pt states recently told he has diabetes, numbness R lower leg, chronic gout bilateral feet, UTI, chronic low back pain, cervical pain History of Any Multi-Drug Resistant Organisms: None Reported Past Surgical History: Heart Catheterization With Stent, Hernia Repair, Orthopedic Surgery Additional Past Surgical History / Comment(s): Percutaneous endovascjlar abdominal aortic anuerysm repair, EGD, colonoscopies, bilateral cataract removals/lens implants, R shoulder rotator cuff repair, umbilical hernia repair. Past Anesthesia/Blood Transfusion Reactions: Motion Sickness Additional Past Anesthesia/Blood Transfusion Reaction / Comment(s): Pt has received blood without reaction. Date of Last Stent Placement:: 01/2020 Past Psychological History: Depression Additional Psychological History / Comment(s): Pt states depression comes and goes. Pt lives alone with a dog and cat. [facility] in the past. He has been using a cane. Smoking Status: Former smoker Past Alcohol Use History: Occasional Additional Past Alcohol Use History / Comment(s): Pt started smoking in 1963 and quit in 2004. He has not drank since 2004-he drank occasionally. Past Drug Use History: Marijuana Additional Drug Use History / Comment(s): Quit smoking maijuana 05/24/20. He aslo uses CBD oil - Past Family History Mother Family Medical History: Cancer Additional Family Medical History / Comment(s): Mother of liver cancer. Father Family Medical History: Myocardial Infarction ([place]) Additional Family Medical History / Comment(s): Father of a [place] at the age of 48yrs. Medications and Allergies Home Medications Medication Instructions Recorded Confirmed Type Cholecalciferol [Vitamin D3 (25 2,000 unit PO DAILY 05/11/19 07/23/20 History Mcg = 1000 Iu)] Nitroglycerin Sl Tabs [Nitrostat] 0.4 mg PO Q5M PRN 08/31/19 07/23/20 History Cyanocobalamin [Vitamin B-12] 1,000 mcg PO DAILY #30 tab 11/23/19 07/23/20 Rx carvediloL [Coreg] 6.25 mg PO BID-W/MEALS #60 tab 11/23/19 07/23/20 Rx Folic Acid 1 mg PO DAILY 01/09/20 07/23/20 History Spironolactone [Aldactone] 25 mg PO BID@0800,1200 01/09/20 07/23/20 History Thiamine [Vitamin B-1] 50 mg PO DAILY 01/09/20 07/23/20 History Allopurinol [Zyloprim] 100 mg PO DAILY 07/23/20 07/23/20 History Rivaroxaban [Xarelto] 10 mg PO HS 07/23/20 07/23/20 History Torsemide [Demadex] 20 mg PO DAILY@1200 07/23/20 07/23/20 History Torsemide [Demadex] 40 mg PO DAILY 07/23/20 07/23/20 History Allergies Allergy/AdvReac Type Severity Reaction Status Date / Time codeine Allergy Rash/Hives Verified 07/23/20 16:23 ibuprofen Allergy Unknown Verified 07/23/20 16:23 apixaban [From Eliquis] AdvReac Rash/Hives Verified 07/23/20 16:23 dabigatran etexilate AdvReac Rash/Hives Verified 07/23/20 16:23 [From Pradaxa] midodrine AdvReac Rash/Hives Verified 07/23/20 16:23 Physical Exam Osteopathic Statement: *. No significant issues noted on an osteopathic structural exam other than those noted in the History and Physical/Consult. Vitals: Vital Signs Temp Pulse Pulse Resp BP BP Pulse Ox 07/24/20 11:50 89 07/24/20 11:40 88 07/24/20 08:25 94 07/24/20 08:10 90 07/24/20 08:00 97.6 F 81 18 115/63 96 07/24/20 04:41 84 07/24/20 04:30 86 97 07/24/20 02:00 98.6 F 86 18 162/79 96 07/23/20 22:00 116/67 96 07/23/20 21:00 76 18 108/65 96 07/23/20 20:41 73 07/23/20 18:00 91 22 152/98 96 07/23/20 17:00 98.8 F 94 21 128/80 96 07/23/20 16:02 95 28 H 07/23/20 16:00 91 17 107/72 99 07/23/20 15:25 86 28 H 07/23/20 15:00 89 22 150/93 98 07/23/20 13:11 97.4 F L 77 22 124/66 94 L Intake and Output 07/23/20 07/24/20 07/24/20 22:59 06:59 14:59 Other: # Voids 3 Weight 142.882 kg No acute distress, oriented 3. Currently on 2 L nasal cannula. Saturations are 94%. No conversational dyspnea, or use of accessory muscles. HEENT examination is grossly unremarkable. Neck supple. Full range of motion. No adenopathy thyromegaly or neck vein distention. Cardiovascular examination reveals regular rhythm rate. S1-S2 normal. No S3 or S4. No discernible murmur noted. Heart sounds are distant. Heart rate 89 bpm. Lungs reveal inspiratory and expiratory wheezes. There are some scattered bilateral rhonchi. No crackles. Breath sounds equal bilaterally but diminished throughout. Abdomen soft bowel sounds are heard. No masses or tenderness. Abdomen is quite obese and distended. Extremities are intact. No cyanosis or clubbing. There is bilateral lower extremity edema, probably 1-2+. Skin is without rash or lesion. Neurologic examination is brief but nonfocal. Results - Laboratory Findings CBC and BMP: 07/23/20 13:27 07/23/20 13:27 PT/INR, D-dimer PT 12.0 sec (9.0-12.0) 07/23/20 13:27 INR 1.1 (<1.2) 07/23/20 13:27 Abnormal lab findings: Abnormal Labs 07/23/20 07/23/20 07/23/20 13:27 13:27 17:17 RBC 3.32 L Hgb 12.2 L Hct 34.5 L MCV 103.9 H MCH 36.8 H Plt Count 48 L Sodium 132 L BUN 37 H Creatinine 1.52 H Glucose 313 H POC Glucose (mg/dL) 199 H Alkaline Phosphatase 127 H Albumin 3.3 L 07/23/20 07/23/20 07/24/20 21:26 23:16 00:10 RBC Hgb Hct MCV MCH Plt Count Sodium BUN Creatinine Glucose POC Glucose (mg/dL) 307 H 332 H 372 H Alkaline Phosphatase Albumin 07/24/20 07/24/20 08:04 11:55 RBC Hgb Hct MCV MCH Plt Count Sodium BUN Creatinine Glucose POC Glucose (mg/dL) 379 H 346 H Alkaline Phosphatase Albumin - Diagnostic Findings Chest x-ray: image reviewed Assessment and Plan Assessment: Shortness of breath, secondary to COPD exacerbation. Probable pulmonary hypertension with cor pulmonale, as an explanation for the patient's lower extremity edema. Previous history of heavy tobacco use. History of atrial fibrillation. History of CHF. Gastroesophageal reflux disease. History of hypertension. History of hepatitis C. History of osteoarthritis. History of stage III chronic kidney disease. History of pancytopenia. Status post stenting of the abdominal aortic aneurysm. Plan: Plan dated 07/24/2020. The patient will get usual therapy including albuterol sulfate and ipratropium bromide updrafts, 4 times a day and when necessary, Pulmicort 1 mg twice a day mixed with formoterol 20 g. The patient will also get Solu-Medrol 60 mg every 6 hours. Currently, the patient is on Omnicef. We will check a pro-calcitonin level. Additional recommendations and suggestions are forthcoming. There appears not to be a component of CHF at this time. Time with Patient: Greater than 30
[2020-07-24] MEDS: methylPREDNISolone SOD SUCCI 125 MG/2 ML VIAL IV SCH ×3 (12:48→23:01)
[2020-07-24 13:52] LABS: Albumin 3.3 g/dL (3.80-4.90); Albumin/Globulin Ratio 1.03 (1.60-3.17); Anion Gap 13.7 mmol/L (4.00-12.00); BUN/Creat Ratio 25.88 Ratio (12.00-20.00); Carbon Dioxide 21.3 mmol/L (21.6-31.8); Globulin 3.2 g/dL (1.6-3.3); Non-African American GFR(CKD) 39.7 (60.0-200.0); Potassium 4.5 mmol/L (3.5-5.5); Total Bilirubin 1.5 mg/dL (0.2-1.2); Total Protein 6.5 g/dL (6.2-8.2)
--- NOTE | 2020-07-24 16:21 | P.PN ---
Subjective Progress Note Date: 07/24/20 Pleasant 69-year-old male with a known history of cirrhosis secondary to hepatitis C states that he is in remission since he is receiving NEWER medications for hepatitis C. Patient given with increased swelling in both legs patient is alcohol related secondary to cirrhosis. Patient also comparing of some shortness of breath orthopnea has minimal expiratory wheezing does have history of COPD does have some rhonchi as well patient was started on oral antibiotics in ER. Patient denied any lightheadedness dizziness. Patient doesn't have any pulmonary edema on the chest x-ray, echo cardiac showed normal ejection fraction the past although patient apparently has diagnosed of chronic diastolic dysfunction. Patient doesn't have any JVD but does have extensive peripheral edema. BNP is not elevated. Patient was comparing of cough with clear sputum production. Patient does have history of sleep apnea 07/24/2020 Patient is seen in follow-up with no acute overnight issues. The patient continues to have lower extremity edema with 2+ pitting edema all improved from yesterday. Will add Jayme wraps from the toes up to the thighs and instructed patient to elevate lower extremities while at rest. Patient continues on IV Lasix and will continue. Pulmonary also evaluating the patient and patient is maintained on breathing inhalational treatments and IV steroids and will continue. Blood sugars are elevated and will continue sliding scale and will add long-acting insulin and continue with Accu-Cheks before meals and at bedtime. Review of systems: Constitutional: Reports fatigue, no reports of fever, reports chills Cardiovascular: No reports of chest pain or palpitations Respiratory: reports of shortness of breath and occasional cough GI: No reports of nausea, vomiting, or diarrhea : No reports of dysuria or retention Neurovascular: No reports of weakness or numbness All medications have been reviewed Objective - Vital Signs Vital signs: Vital Signs Temp 97.6 F 07/24/20 08:00 Pulse 94 07/24/20 08:25 Resp 18 07/24/20 08:00 BP 115/63 07/24/20 08:00 Pulse Ox 96 07/24/20 08:00 Intake & Output 07/23/20 07/24/20 07/24/20 18:59 06:59 18:59 Weight 142.882 kg 142.882 kg Other: # Voids 3 - Exam GENERAL: The patient is alert and oriented x3, not in any acute distress. Obese HEENT: Pupils are round and equally reacting to light. EOMI. No scleral icterus. No conjunctival pallor. Normocephalic, atraumatic. No pharyngeal erythema. No thyromegaly. CARDIOVASCULAR: S1 and S2 present. No murmurs, rubs, or gallops. PULMONARY: Expiratory wheezing with the diffuse bilateral rhonchi, wheezing slightly improved on today's exam ABDOMEN: Soft, nontender, nondistended, normoactive bowel sounds. No palpable organomegaly. MUSCULOSKELETAL: No joint swelling or deformity. EXTREMITIES: No cyanosis, clubbing, bilateral lower extremity edema 2+ pitting which is improved from yesterday NEUROLOGICAL: Gross neurological examination did not reveal any focal deficits. SKIN: No rashes. - Labs CBC & Chem 7: 07/24/20 06:00 07/24/20 06:00 Labs: Abnormal Lab Results - Last 24 Hours (Table) 07/23/20 07/23/20 07/23/20 Range/Units 13:27 13:27 17:17 RBC 3.32 L (4.30-5.90) m/uL Hgb 12.2 L (13.0-17.5) gm/dL Hct 34.5 L (39.0-53.0) % MCV 103.9 H (80.0-100.0) fL MCH 36.8 H (25.0-35.0) pg Plt Count 48 L (150-450) k/uL Sodium 132 L (137-145) mmol/L BUN 37 H (9-20) mg/dL Creatinine 1.52 H (0.66-1.25) mg/dL Glucose 313 H (74-99) mg/dL POC Glucose (mg/dL) 199 H (75-99) mg/dL Alkaline Phosphatase 127 H (38-126) U/L Albumin 3.3 L (3.5-5.0) g/dL 07/23/20 07/23/20 07/24/20 Range/Units 21:26 23:16 00:10 RBC (4.30-5.90) m/uL Hgb (13.0-17.5) gm/dL Hct (39.0-53.0) % MCV (80.0-100.0) fL MCH (25.0-35.0) pg Plt Count (150-450) k/uL Sodium (137-145) mmol/L BUN (9-20) mg/dL Creatinine (0.66-1.25) mg/dL Glucose (74-99) mg/dL POC Glucose (mg/dL) 307 H 332 H 372 H (75-99) mg/dL Alkaline Phosphatase (38-126) U/L Albumin (3.5-5.0) g/dL 07/24/20 Range/Units 08:04 RBC (4.30-5.90) m/uL Hgb (13.0-17.5) gm/dL Hct (39.0-53.0) % MCV (80.0-100.0) fL MCH (25.0-35.0) pg Plt Count (150-450) k/uL Sodium (137-145) mmol/L BUN (9-20) mg/dL Creatinine (0.66-1.25) mg/dL Glucose (74-99) mg/dL POC Glucose (mg/dL) 379 H (75-99) mg/dL Alkaline Phosphatase (38-126) U/L Albumin (3.5-5.0) g/dL Assessment and Plan Assessment: -Bilateral lower extremity edema, volume overload: Secondary to cirrhosis patient will be started on IV Lasix will monitor kidney function. Lower extremity edema improving and will continue with IV Lasix for another 24 hours. Add Jayme wraps to bilateral lower extremities from the toes up to the thighs and instructed the patient to elevate extremities while at rest. -Shortness of breath multifactorial because of his obesity, sleep apnea and restrictive lung disease along with mild COPD exacerbation and mild bronchitis continue with antibiotics. Patient was seen and evaluated by pulmonary and have switched the steroids back to IV and will continue with breathing inhalational treatments. -History of atrial fibrillation presently sinus rhythm rate controlled continue with anticoagulation continue with his rate control medications -History of congestive heart failure chronic diastolic dysfunction presently not in acute exacerbation -COPD with mild acute exacerbation -Hypertension -Chronic kidney disease stage III probably either hepatorenal or hypertensive nephrosclerosis -Gastroesophageal reflux disease -Full code Plan: Kidney with IV diuresis for another 24 hours and monitor kidney functions in the morning. Pulmonary following and continue with breathing inhalational treatments along with IV steroids. Recommend Jayme wraps to bilateral lower extremities from the toes up to the thighs and elevating extremities while at rest. Blood sugars elevated most likely secondary to steroids and will add long-acting at night and continue sliding scale and monitor Accu-Cheks before meals and at bedtime.
[2020-07-24 17:18] LABS: Glucose,Whole Blood 442 mg/dL (75-99)
[2020-07-24] MEDS ORDERED: INSULIN ASPART (NovoLOG) 100 UNIT/ML VIAL SQ ONE ×2 (18:01→21:33)
[2020-07-24] MEDS: FORMOTEROL FUMARATE 20 MCG/2 ML NEBU INHALATION SCH (20:51)
[2020-07-24] MEDS: BUDESONIDE 1 MG/2 ML NEBU INHALATION SCH (20:51)
[2020-07-24] MEDS ORDERED: INSULIN DETEMIR (LEVEMIR) 100 UNIT/ML SYR SQ SCH (21:00)
[2020-07-24 21:22] LABS: Glucose,Whole Blood 407 mg/dL (75-99)
[2020-07-24] MEDS: RIVAROXABAN 10 MG TAB PO SCH (21:49)
[2020-07-24] MEDS: INSULIN DETEMIR (LEVEMIR) 100 UNIT/ML SYR SQ SCH (21:49)
[2020-07-25 01:42] LABS: Glucose,Whole Blood 345 mg/dL (75-99)
[2020-07-25] MEDS: methylPREDNISolone SOD SUCCI 125 MG/2 ML VIAL IV SCH (05:32)
[2020-07-25 07:21] LABS: Glucose,Whole Blood 326 mg/dL (75-99)
[2020-07-25] MEDS: INSULIN ASPART (NovoLOG) 100 UNIT/ML VIAL SQ SCH ×4 (07:45→20:45)
[2020-07-25] MEDS: SPIRONOLACTONE 25 MG TAB PO SCH ×2 (07:48→12:21)
[2020-07-25] MEDS: FOLIC ACID 1 MG TAB PO SCH (07:49)
[2020-07-25] MEDS: THIAMINE 100 MG TAB PO SCH (07:49)
[2020-07-25] MEDS: carvediloL 6.25 MG TAB PO SCH ×2 (07:50→17:30)
[2020-07-25] MEDS: allopurinoL 100 MG TAB PO SCH (07:50)
[2020-07-25] MEDS: CHOLECALCIFEROL 25 MCG (1000 IU) TABLET PO SCH (07:50)
[2020-07-25] MEDS: CEFDINIR 300 MG CAP PO SCH ×2 (07:50→20:44)
[2020-07-25] MEDS: FUROSEMIDE 10 MG/ML 10 ML VIAL IV SCH (07:51)
[2020-07-25] MEDS: IPRATROPIUM-ALBUTEROL 3 ML NEB INHALATION SCH ×4 (07:54→19:26)
[2020-07-25] MEDS: FORMOTEROL FUMARATE 20 MCG/2 ML NEBU INHALATION SCH ×2 (07:54→19:26)
[2020-07-25] MEDS: BUDESONIDE 1 MG/2 ML NEBU INHALATION SCH ×2 (07:54→19:26)
[2020-07-25 08:51] LABS: African American GFR (CKD) 41 (>60 ml/min/1.73 sqM); Anion Gap 9 mmol/L; Blood Urea Nitrogen 56 mg/dL (9-20); Calcium 9.1 mg/dL (8.4-10.2); Carbon Dioxide 24 mmol/L (22-30); Chloride 99 mmol/L (98-107); Glucose 303 mg/dL (74-99); Non-African American GFR(CKD) 36 (>60 ml/min/1.73 sqM); Potassium 4.5 mmol/L (3.5-5.1); Sodium 132 mmol/L (137-145)
[2020-07-25 11:32] LABS: Glucose,Whole Blood 432 mg/dL (75-99)
[2020-07-25] MEDS ORDERED: INSULIN ASPART (NovoLOG) 100 UNIT/ML VIAL SQ ONE (12:00)
--- NOTE | 2020-07-25 13:49 | P.PN ---
Subjective Progress Note Date: 07/25/20 Principal diagnosis: Acute exacerbation of COPD 70-year-old male, who is evaluated in the emergency department, with complaints of shortness of breath. The patient does have a history of diabetes mellitus, essential hypertension, and COPD from previous tobacco use. Apparently he hasn't smoked for about 12 or 13 years. In addition to shortness of breath, patient states that he's been having some lower extremity edema. He denies any fever or chills. He is not coughing up any phlegm. He denies any nausea, vomiting, diarrhea or abdominal pain. The patient was admitted apparently with a diagnosis of COPD exacerbation, which is why we are consulted. It see my partner in the past following some sort of surgical procedure. The patient typically is on Symbicort, and updrafts with albuterol and ipratropium bromide. In addition, he has a history of atrial fibrillation, heart failure, GERD, osteoarthritis, and chronic kidney disease. I believe when he saw my partner recently, the patient was having a recent abdominal aortic aneurysm stent placement. White count 4.6, hemoglobin 12.2, hematocrit 34.5, and platelet count 48,000. PT, INR, and PTT are all normal. Sodium 132, potassium 4.3, chlorides 98, CO2 25, anion gap 9, BUN 37, and creatinine 1.52. Chest x-ray shows hyperinflation, and flattening of the diaphragms consistent with COPD, but no active cardiopulmonary disease. The patient is seen today 07/25/2020 in follow-up on the regular medical floor. He is currently sitting up in a chair at the bedside. Awake and alert in no acute distress. He is maintaining O2 saturation in the low 90s on room air. Sodium 132. Potassium 4.5. Creatinine 1.87. Glucose 303. He remains on DuoNeb inhalations, Pulmicort and Perforomist inhalations, IV Solu-Medrol. Antibiotics in the form of Omnicef. Anticoagulated with Xarelto. Objective - Vital Signs Vital signs: Vital Signs Temp 97.6 F 07/25/20 08:00 Pulse 73 07/25/20 12:19 Resp 18 07/25/20 08:00 BP 109/59 07/25/20 12:19 Pulse Ox 93 L 07/25/20 12:19 Intake & Output 0507/25/20 07/25/20 18:59 06:59 18:59 Intake Total 600 Output Total 650 Balance 600 -650 Intake: Oral 600 Output: Urine 650 Other: Voiding Method Toilet Urinal Urinal # Voids 2 - Exam GENERAL EXAM: Alert, pleasant 70-year-old gentleman, on room air, comfortable in no apparent distress. HEAD: Normocephalic. EYES: Normal reaction of pupils, equal size. NOSE: Clear with pink turbinates. THROAT: No erythema or exudates. NECK: No masses, no JVD. CHEST: No chest wall deformity. LUNGS: Equal air entry with bilateral end expiratory wheeze CVS: S1 and S2 normal with no audible murmur, regular rhythm. ABDOMEN: No hepatosplenomegaly, normal bowel sounds, no guarding or rigidity. SPINE: No scoliosis or deformity SKIN: No rashes CENTRAL NERVOUS SYSTEM: No focal deficits, tone is normal in all 4 extremities. EXTREMITIES: Changes of chronic venous stasis No clubbing, no cyanosis. Peripheral pulses are intact. - Labs CBC & Chem 7: 07/24/20 06:00 07/25/20 07:22 Labs: Abnormal Lab Results - Last 24 Hours (Table) 07/24/20 07/24/20 07/24/20 Range/Units 06:00 06:00 17:17 Sodium 133 L (135-145) mmol/L Carbon Dioxide 21.3 L (21.6-31.8) mmol/L Anion Gap 13.70 H (4.00-12.00) mmol/L BUN 44.0 H (9.0-27.0) mg/dL Creatinine 1.7 H (0.6-1.5) mg/dL Est GFR (CKD-EPI)AfAm 46.0 L (60.0-200.0) Est GFR (CKD-EPI)NonAf 39.7 L (60.0-200.0) BUN/Creatinine Ratio 25.88 H (12.00-20.00) Ratio Glucose 360 H (70-110) mg/dL POC Glucose (mg/dL) 442 H (75-99) mg/dL Total Bilirubin 1.5 H (0.2-1.2) mg/dL Alkaline Phosphatase 130 H (41-126) U/L Albumin 3.30 L (3.80-4.90) g/dL Albumin/Globulin Ratio 1.03 L (1.60-3.17) g/dL Procalcitonin 0.17 H (0.02-0.09) ng/mL 07/24/20 07/25/20 07/25/20 Range/Units 21:21 01:33 07:20 Sodium (135-145) mmol/L Carbon Dioxide (21.6-31.8) mmol/L Anion Gap (4.00-12.00) mmol/L BUN (9.0-27.0) mg/dL Creatinine (0.6-1.5) mg/dL Est GFR (CKD-EPI)AfAm (60.0-200.0) Est GFR (CKD-EPI)NonAf (60.0-200.0) BUN/Creatinine Ratio (12.00-20.00) Ratio Glucose (70-110) mg/dL POC Glucose (mg/dL) 407 H 345 H 326 H (75-99) mg/dL Total Bilirubin (0.2-1.2) mg/dL Alkaline Phosphatase (41-126) U/L Albumin (3.80-4.90) g/dL Albumin/Globulin Ratio (1.60-3.17) g/dL Procalcitonin (0.02-0.09) ng/mL 07/25/20 07/25/20 Range/Units 07:22 11:31 Sodium 132 L (135-145) mmol/L Carbon Dioxide (21.6-31.8) mmol/L Anion Gap (4.00-12.00) mmol/L BUN 56 H (9.0-27.0) mg/dL Creatinine 1.87 H (0.6-1.5) mg/dL Est GFR (CKD-EPI)AfAm (60.0-200.0) Est GFR (CKD-EPI)NonAf (60.0-200.0) BUN/Creatinine Ratio (12.00-20.00) Ratio Glucose 303 H (70-110) mg/dL POC Glucose (mg/dL) 432 H (75-99) mg/dL Total Bilirubin (0.2-1.2) mg/dL Alkaline Phosphatase (41-126) U/L Albumin (3.80-4.90) g/dL Albumin/Globulin Ratio (1.60-3.17) g/dL Procalcitonin (0.02-0.09) ng/mL Assessment and Plan Assessment: 1 Acute hypoxemic respiratory failure secondary to COPD exacerbation. 2 Probable pulmonary hypertension with cor pulmonale, as an explanation for the patient's lower extremity edema. 3 Previous history of heavy tobacco use. 4 History of atrial fibrillation. 5 History of CHF. 6 Gastroesophageal reflux disease. 7 History of hypertension. 8 History of hepatitis C. 9 History of osteoarthritis. 10 History of stage III chronic kidney disease. 11 History of pancytopenia. 12 Status post stenting of the abdominal aortic aneurysm. Routine Steroid-induced hyperglycemia Plan: The patient was seen and evaluated by Dr. Helton We will discontinue IV Solu-Medrol and converted to oral prednisone Continue bronchodilators Titrate the FiO2 as tolerated We'll continue to follow I, the cosigning physician, performed a history & physical examination of the patient. Lungs sounds with bilateral end expiratory wheeze. Maintaining good O2 saturations in the 90s on room air. I discussed the assessment and plan of care with my nurse practitioner, Kathy Marie. I attest to the above note as dictated by her.
--- NOTE | 2020-07-25 14:49 | P.PN ---
Subjective Progress Note Date: 07/25/20 Pleasant 69-year-old male with a known history of cirrhosis secondary to hepatitis C states that he is in remission since he is receiving NEWER medications for hepatitis C. Patient given with increased swelling in both legs patient is alcohol related secondary to cirrhosis. Patient also comparing of some shortness of breath orthopnea has minimal expiratory wheezing does have history of COPD does have some rhonchi as well patient was started on oral antibiotics in ER. Patient denied any lightheadedness dizziness. Patient doesn't have any pulmonary edema on the chest x-ray, echo cardiac showed normal ejection fraction the past although patient apparently has diagnosed of chronic diastolic dysfunction. Patient doesn't have any JVD but does have extensive peripheral edema. BNP is not elevated. Patient was comparing of cough with clear sputum production. Patient does have history of sleep apnea 07/24/2020 Patient is seen in follow-up with no acute overnight issues. The patient continues to have lower extremity edema with 2+ pitting edema all improved from yesterday. Will add Jayme wraps from the toes up to the thighs and instructed patient to elevate lower extremities while at rest. Patient continues on IV Lasix and will continue. Pulmonary also evaluating the patient and patient is maintained on breathing inhalational treatments and IV steroids and will continue. Blood sugars are elevated and will continue sliding scale and will add long-acting insulin and continue with Accu-Cheks before meals and at bedtime. 07/25/2020 Seen and evaluated in follow-up in breathing is much improved currently sitting up in the chair with Jayme wraps noted to bilateral lower extremities and elevated with significant improvement of bilateral lower extremity edema. Creatinine slightly increased at 1.87 with a BUN of 56 and sodium is 132 and will titrate IV Lasix to 40 twice a day and monitor kidney functions closely. Blood sugars elevated most likely secondary to steroid induced and have transition to oral prednisone and also added long-acting insulin and will continue with sliding scale and continue to monitor Accu-Cheks before meals and at bedtime. Patient will continue with breathing inhalational treatments as well. Instructed the patient increase activity as tolerated. Review of systems: Constitutional: No reports of fatigue, no reports of fever, reports chills Cardiovascular: No reports of chest pain or palpitations Respiratory: No reports of shortness of breath with occasional cough GI: No reports of nausea, vomiting, or diarrhea : No reports of dysuria or retention Neurovascular: No reports of weakness or numbness All medications have been reviewed Objective - Vital Signs Vital signs: Vital Signs Temp 97.6 F 07/25/20 08:00 Pulse 74 07/25/20 11:31 Resp 18 07/25/20 08:00 BP 123/75 07/25/20 08:00 Pulse Ox 95 07/25/20 08:03 Intake & Output 07/24/20 07/25/20 07/25/20 18:59 06:59 18:59 Intake Total 600 Output Total 650 Balance 600 -650 Intake: Oral 600 Output: Urine 650 Other: Voiding Method Toilet Urinal Urinal # Voids 2 - Exam GENERAL: The patient is alert and oriented x3, not in any acute distress. Obese HEENT: Pupils are round and equally reacting to light. EOMI. No scleral icterus. No conjunctival pallor. Normocephalic, atraumatic. No pharyngeal erythema. No thyromegaly. CARDIOVASCULAR: S1 and S2 present. No murmurs, rubs, or gallops. PULMONARY: Minimal Expiratory wheezing with diffuse bilateral rhonchi, wheezing continues to improve ABDOMEN: Soft, nontender, nondistended, normoactive bowel sounds. No palpable organomegaly. MUSCULOSKELETAL: No joint swelling or deformity. EXTREMITIES: No cyanosis, clubbing, bilateral lower extremity edema much improved and Jayme wraps noted NEUROLOGICAL: Gross neurological examination did not reveal any focal deficits. SKIN: No rashes. - Labs CBC & Chem 7: 07/24/20 06:00 07/25/20 07:22 Labs: Abnormal Lab Results - Last 24 Hours (Table) 07/24/20 07/24/20 07/24/20 Range/Units 06:00 06:00 06:00 WBC 3.68 L (4.50-10.00) X 10*3/uL RBC 3.06 L (4.40-5.60) X 10*6/uL Hgb 10.7 L (13.0-17.0) g/dL Hct 32.6 L (39.6-50.0) % MCV 106.5 H (80.0-97.0) fL MCH 35.0 H (27.0-32.0) pg RDW 14.9 H (11.5-14.5) % Plt Count 43 L (140-440) X 10*3/uL Plt Count Comment A MPV 13.4 H (9.5-12.2) fL Immature Plt Fraction 7.5 H (1.1-6.1) % Sodium 133 L (135-145) mmol/L Carbon Dioxide 21.3 L (21.6-31.8) mmol/L Anion Gap 13.70 H (4.00-12.00) mmol/L BUN 44.0 H (9.0-27.0) mg/dL Creatinine 1.7 H (0.6-1.5) mg/dL Est GFR (CKD-EPI)AfAm 46.0 L (60.0-200.0) Est GFR (CKD-EPI)NonAf 39.7 L (60.0-200.0) BUN/Creatinine Ratio 25.88 H (12.00-20.00) Ratio Glucose 360 H (70-110) mg/dL POC Glucose (mg/dL) (75-99) mg/dL Total Bilirubin 1.5 H (0.2-1.2) mg/dL Alkaline Phosphatase 130 H (41-126) U/L Albumin 3.30 L (3.80-4.90) g/dL Albumin/Globulin Ratio 1.03 L (1.60-3.17) g/dL Procalcitonin 0.17 H (0.02-0.09) ng/mL 07/24/20 07/24/20 07/25/20 Range/Units 17:17 21:21 01:33 WBC (4.50-10.00) X 10*3/uL RBC (4.40-5.60) X 10*6/uL Hgb (13.0-17.0) g/dL Hct (39.6-50.0) % MCV (80.0-97.0) fL MCH (27.0-32.0) pg RDW (11.5-14.5) % Plt Count (140-440) X 10*3/uL Plt Count Comment MPV (9.5-12.2) fL Immature Plt Fraction (1.1-6.1) % Sodium (135-145) mmol/L Carbon Dioxide (21.6-31.8) mmol/L Anion Gap (4.00-12.00) mmol/L BUN (9.0-27.0) mg/dL Creatinine (0.6-1.5) mg/dL Est GFR (CKD-EPI)AfAm (60.0-200.0) Est GFR (CKD-EPI)NonAf (60.0-200.0) BUN/Creatinine Ratio (12.00-20.00) Ratio Glucose (70-110) mg/dL POC Glucose (mg/dL) 442 H 407 H 345 H (75-99) mg/dL Total Bilirubin (0.2-1.2) mg/dL Alkaline Phosphatase (41-126) U/L Albumin (3.80-4.90) g/dL Albumin/Globulin Ratio (1.60-3.17) g/dL Procalcitonin (0.02-0.09) ng/mL 07/25/20 07/25/20 07/25/20 Range/Units 07:20 07:22 11:31 WBC (4.50-10.00) X 10*3/uL RBC (4.40-5.60) X 10*6/uL Hgb (13.0-17.0) g/dL Hct (39.6-50.0) % MCV (80.0-97.0) fL MCH (27.0-32.0) pg RDW (11.5-14.5) % Plt Count (140-440) X 10*3/uL Plt Count Comment MPV (9.5-12.2) fL Immature Plt Fraction (1.1-6.1) % Sodium 132 L (135-145) mmol/L Carbon Dioxide (21.6-31.8) mmol/L Anion Gap (4.00-12.00) mmol/L BUN 56 H (9.0-27.0) mg/dL Creatinine 1.87 H (0.6-1.5) mg/dL Est GFR (CKD-EPI)AfAm (60.0-200.0) Est GFR (CKD-EPI)NonAf (60.0-200.0) BUN/Creatinine Ratio (12.00-20.00) Ratio Glucose 303 H (70-110) mg/dL POC Glucose (mg/dL) 326 H 432 H (75-99) mg/dL Total Bilirubin (0.2-1.2) mg/dL Alkaline Phosphatase (41-126) U/L Albumin (3.80-4.90) g/dL Albumin/Globulin Ratio (1.60-3.17) g/dL Procalcitonin (0.02-0.09) ng/mL Assessment and Plan Assessment: -Bilateral lower extremity edema, volume overload: Secondary to cirrhosis, much improved and will continue with Jayme wraps and elevating lower extremities while at rest -Acute kidney injury likely prerenal azotemia and diuretic use. We'll decrease the dose of IV Lasix and monitor closely with repeat labs -Shortness of breath multifactorial because of his obesity, sleep apnea and restrictive lung disease along with mild COPD exacerbation and mild bronchitis continue with antibiotics. Improved significantly and will continue with breathing treatments along with oral steroids -Hyperglycemia most likely steroid-induced; have added long-acting insulin and will continue sliding scale and monitor closely. Transition IV steroids to oral prednisone -History of atrial fibrillation presently sinus rhythm rate controlled continue with anticoagulation continue with his rate control medications -History of congestive heart failure chronic diastolic dysfunction presently not in acute exacerbation -COPD with mild acute exacerbation -Hypertension -Chronic kidney disease stage III probably either hepatorenal or hypertensive nephrosclerosis -Gastroesophageal reflux disease -Full code Plan: Decreased IV diuresis and will continue for another 24 hours and monitor kidney functions again in the morning his kidney function slightly worsened. Pulmonary following and continue with breathing inhalational treatments. Patient transition to oral steroids. continue Jayme wraps to bilateral lower extremities from the toes up to the thighs and elevating extremities while at rest. Edema much improved of bilateral lower extremities. Blood sugars continue to be elevated most likely secondary to steroids and will add long-acting at night and continue sliding scale and monitor Accu-Cheks before meals and at bedtime. Anticipate discharge in 24 hours.
[2020-07-25 16:25] LABS: Glucose,Whole Blood 369 mg/dL (75-99)
[2020-07-25 20:25] LABS: Glucose,Whole Blood 440 mg/dL (75-99)
[2020-07-25] MEDS: RIVAROXABAN 10 MG TAB PO SCH (20:44)
[2020-07-25] MEDS: INSULIN DETEMIR (LEVEMIR) 100 UNIT/ML SYR SQ SCH (20:45)
[2020-07-25] MEDS: FUROSEMIDE 10 MG/ML 4 ML VIAL IV SCH (20:45)
[2020-07-25] MEDS ORDERED: methylPREDNISolone SOD SUCCI 40 MG/ML 1 ML VIAL IV SCH (21:00)
[2020-07-26 02:09] VITALS: RESP 18
[2020-07-26 07:28] LABS: Glucose,Whole Blood 253 mg/dL (75-99)
[2020-07-26] MEDS: BUDESONIDE 1 MG/2 ML NEBU INHALATION SCH (07:42)
[2020-07-26] MEDS: FORMOTEROL FUMARATE 20 MCG/2 ML NEBU INHALATION SCH (07:42)
[2020-07-26] MEDS: IPRATROPIUM-ALBUTEROL 3 ML NEB INHALATION SCH ×2 (07:42→11:23)
[2020-07-26] MEDS: INSULIN ASPART (NovoLOG) 100 UNIT/ML VIAL SQ SCH ×2 (08:58→12:45)
[2020-07-26] MEDS: FOLIC ACID 1 MG TAB PO SCH (09:00)
[2020-07-26] MEDS ORDERED: predniSONE 20 MG TAB PO SCH ×2 (09:00)
[2020-07-26] MEDS: allopurinoL 100 MG TAB PO SCH (09:00)
[2020-07-26] MEDS: CHOLECALCIFEROL 25 MCG (1000 IU) TABLET PO SCH (09:00)
[2020-07-26] MEDS: SPIRONOLACTONE 25 MG TAB PO SCH ×2 (09:01→12:45)
[2020-07-26] MEDS: THIAMINE 100 MG TAB PO SCH (09:01)
[2020-07-26] MEDS: CEFDINIR 300 MG CAP PO SCH (09:02)
[2020-07-26] MEDS: carvediloL 6.25 MG TAB PO SCH (09:02)
[2020-07-26] MEDS: FUROSEMIDE 10 MG/ML 4 ML VIAL IV SCH (09:04)
[2020-07-26 11:47] LABS: Glucose,Whole Blood 326 mg/dL (75-99)
--- NOTE | 2020-07-26 12:32 | P.PN ---
Subjective Progress Note Date: 07/26/20 Principal diagnosis: Acute exacerbation of COPD 70-year-old male, who is evaluated in the emergency department, with complaints of shortness of breath. The patient does have a history of diabetes mellitus, essential hypertension, and COPD from previous tobacco use. Apparently he hasn't smoked for about 12 or 13 years. In addition to shortness of breath, patient states that he's been having some lower extremity edema. He denies any fever or chills. He is not coughing up any phlegm. He denies any nausea, vomiting, diarrhea or abdominal pain. The patient was admitted apparently with a diagnosis of COPD exacerbation, which is why we are consulted. It see my partner in the past following some sort of surgical procedure. The patient typically is on Symbicort, and updrafts with albuterol and ipratropium bromide. In addition, he has a history of atrial fibrillation, heart failure, GERD, osteoarthritis, and chronic kidney disease. I believe when he saw my partner recently, the patient was having a recent abdominal aortic aneurysm stent placement. White count 4.6, hemoglobin 12.2, hematocrit 34.5, and platelet count 48,000. PT, INR, and PTT are all normal. Sodium 132, potassium 4.3, chlorides 98, CO2 25, anion gap 9, BUN 37, and creatinine 1.52. Chest x-ray shows hyperinflation, and flattening of the diaphragms consistent with COPD, but no active cardiopulmonary disease. The patient is seen today 07/25/2020 in follow-up on the regular medical floor. He is currently sitting up in a chair at the bedside. Awake and alert in no acute distress. He is maintaining O2 saturation in the low 90s on room air. Sodium 132. Potassium 4.5. Creatinine 1.87. Glucose 303. He remains on DuoNeb inhalations, Pulmicort and Perforomist inhalations, IV Solu-Medrol. Antibiotics in the form of Omnicef. Anticoagulated with Xarelto. Patient is seen today 07/26/2020 in follow-up on the regular medical floor. Currently resting comfortably in bed. Awake and alert in no acute distress. He is maintaining O2 saturations in the 90s on room air now. No IV fluids. Blood glucose 326. He remains on a prednisone taper, DuoNeb inhalations, Pulmicort and Perforomist inhalations. Anticoagulated with Xarelto. Remains on IV diuretics. Antibiotics in the form of Omnicef. Objective - Vital Signs Vital signs: Vital Signs Temp 97.7 F 07/26/20 08:00 Pulse 76 07/26/20 11:30 Resp 18 07/26/20 08:00 BP 121/74 07/26/20 08:00 Pulse Ox 94 L 07/26/20 08:00 Intake & Output 07/25/20 07/26/20 07/26/20 18:59 06:59 18:59 Intake Total 1080 540 Output Total 1075 Balance 1080 -535 Intake: Oral 1080 540 Output: Urine 1075 Other: Voiding Method Urinal Urinal Urinal # Voids 3 1 # Bowel Movements 1 - Exam GENERAL EXAM: Alert, pleasant 70-year-old gentleman, on room air, comfortable in no apparent distress. HEAD: Normocephalic. EYES: Normal reaction of pupils, equal size. NOSE: Clear with pink turbinates. THROAT: No erythema or exudates. NECK: No masses, no JVD. CHEST: No chest wall deformity. LUNGS: Equal air entry with bilateral end expiratory wheeze CVS: S1 and S2 normal with no audible murmur, regular rhythm. ABDOMEN: No hepatosplenomegaly, normal bowel sounds, no guarding or rigidity. SPINE: No scoliosis or deformity SKIN: No rashes CENTRAL NERVOUS SYSTEM: No focal deficits, tone is normal in all 4 extremities. EXTREMITIES: Changes of chronic venous stasis. No clubbing, no cyanosis. Peripheral pulses are intact. - Labs CBC & Chem 7: 07/24/20 06:00 07/25/20 07:22 Labs: Abnormal Lab Results - Last 24 Hours (Table) 07/25/20 07/25/20 07/26/20 Range/Units 16:24 20:23 07:27 POC Glucose (mg/dL) 369 H 440 H 253 H (75-99) mg/dL 07/26/20 Range/Units 11:46 POC Glucose (mg/dL) 326 H (75-99) mg/dL Assessment and Plan Assessment: 1 Acute hypoxemic respiratory failure secondary to COPD exacerbation. Recovered. 2 Probable pulmonary hypertension with cor pulmonale, as an explanation for the patient's lower extremity edema. 3 Previous history of heavy tobacco use. 4 History of atrial fibrillation. 5 History of CHF. 6 Gastroesophageal reflux disease. 7 History of hypertension. 8 History of hepatitis C. 9 History of osteoarthritis. 10 History of stage III chronic kidney disease. 11 History of pancytopenia. 12 Status post stenting of the abdominal aortic aneurysm. Routine Steroid-induced hyperglycemia Plan: The patient was seen and evaluated by Dr. Danie Alvarez from the pulmonary standpoint, on room air Continue prednisone taper Continue bronchodilators We will see as needed I, the cosigning physician, performed a history & physical examination of the patient. Lungs sounds with bilateral end expiratory wheeze. Maintaining good O2 saturations in the 90s on room air. I discussed the assessment and plan of care with my nurse practitioner, Kathy Marie. I attest to the above note as dictated by her.
[2020-07-26] MEDS ORDERED: traMADol 50 MG TAB PO PRN (14:24)
[2020-07-26 14:44] VITALS: BP 128/72; PULSE 68; TEMP 97.9
--- NOTE | 2020-07-26 16:19 | P.DS ---
Providers Date of admission: 07/23/20 15:52 Attending physician: [facility] Consults: 07/23/20 18:47 Consult Physician Routine Consulting Provider: Kane Killian Consult Reason/Comments: COPD Do you want consulting provider notified?: Yes Primary care physician: Arist[facility] Course: Pleasant 69-year-old male with a known history of cirrhosis secondary to hepatitis C states that he is in remission since he is receiving NEWER medications for hepatitis C. Patient given with increased swelling in both legs patient is alcohol related secondary to cirrhosis. Patient also comparing of some shortness of breath orthopnea has minimal expiratory wheezing does have history of COPD does have some rhonchi as well patient was started on oral antibiotics in ER. Patient denied any lightheadedness dizziness. Patient doesn't have any pulmonary edema on the chest x-ray, echo cardiac showed normal ejection fraction the past although patient apparently has diagnosed of chronic diastolic dysfunction. Patient doesn't have any JVD but does have extensive peripheral edema. BNP is not elevated. Patient was comparing of cough with clear sputum production. Patient does have history of sleep apnea 07/24/2020 Patient is seen in follow-up with no acute overnight issues. The patient continues to have lower extremity edema with 2+ pitting edema all improved from yesterday. Will add Jayme wraps from the toes up to the thighs and instructed patient to elevate lower extremities while at rest. Patient continues on IV Lasix and will continue. Pulmonary also evaluating the patient and patient is maintained on breathing inhalational treatments and IV steroids and will continue. Blood sugars are elevated and will continue sliding scale and will add long-acting insulin and continue with Accu-Cheks before meals and at bedtime. 07/25/2020 Seen and evaluated in follow-up in breathing is much improved currently sitting up in the chair with Jayme wraps noted to bilateral lower extremities and elevated with significant improvement of bilateral lower extremity edema. Creatinine slightly increased at 1.87 with a BUN of 56 and sodium is 132 and will titrate IV Lasix to 40 twice a day and monitor kidney functions closely. Blood sugars elevated most likely secondary to steroid induced and have transition to oral prednisone and also added long-acting insulin and will continue with sliding scale and continue to monitor Accu-Cheks before meals and at bedtime. Patient will continue with breathing inhalational treatments as well. Instructed the patient increase activity as tolerated. 07/26/2020 Patient seen on follow-up, he is currently on room air saturating above 90%, no wheezing today, has been transitioned to oral steroids yesterday. States he has inhalers at home. He is using Jayme wraps on his legs for peripheral edema and receiving diuretic therapy with Demadex, states he has ELENI hose stockings at home which she will apply to his legs in Continued on diuretics upon discharge. Review of systems: Constitutional: No reports of fatigue, no reports of fever, reports chills Cardiovascular: No reports of chest pain or palpitations Respiratory: No reports of shortness of breath with occasional cough GI: No reports of nausea, vomiting, or diarrhea : No reports of dysuria or retention Neurovascular: No reports of weakness or numbness All medications have been reviewed GENERAL: The patient is alert and oriented x3, not in any acute distress. Obese HEENT: Pupils are round and equally reacting to light. EOMI. No scleral icterus. No conjunctival pallor. Normocephalic, atraumatic. No pharyngeal erythema. No thyromegaly. CARDIOVASCULAR: S1 and S2 present. No murmurs, rubs, or gallops. PULMONARY: No wheeze to auscultation bilaterally, ABDOMEN: Soft, nontender, nondistended, normoactive bowel sounds. No palpable organomegaly. MUSCULOSKELETAL: No joint swelling or deformity. EXTREMITIES: No cyanosis, clubbing, bilateral lower extremity edema much improved and Jayme wraps noted NEUROLOGICAL: Gross neurological examination did not reveal any focal deficits. SKIN: No rashes. -Bilateral lower extremity edema, volume overload: Secondary to cirrhosis, much improved and will continue with Jayme wraps and elevating lower extremities while at rest -Acute kidney injury likely prerenal azotemia and diuretic use. We'll decrease the dose of IV Lasix and monitor closely with repeat labs -Shortness of breath multifactorial because of his obesity, sleep apnea and restrictive lung disease along with mild COPD exacerbation and mild bronchitis continue with antibiotics. Improved significantly and will continue with breathing treatments along with oral steroids -Hyperglycemia most likely steroid-induced; have added long-acting insulin and will continue sliding scale and monitor closely. Transition IV steroids to oral prednisone -History of atrial fibrillation presently sinus rhythm rate controlled continue with anticoagulation continue with his rate control medications -History of congestive heart failure chronic diastolic dysfunction presently not in acute exacerbation -COPD with mild acute exacerbation -Hypertension -Chronic kidney disease stage III probably either hepatorenal or hypertensive nephrosclerosis -Gastroesophageal reflux disease -Full code Plan: Patient is currently on room air maintaining oxygen saturations above 90%. Edema is improving, patient will be discharged home continue on oral prednisone taper, has inhalers at home. Continue diuretic therapy with Demadex 20 twice daily, elevate extremities, ELENI hose stockings during the day, patient states he ELENI hose available at home. Continue on antimicrobial therapy with Omnicef for 4 days upon discharge. Follow-up with primary care provider and pulmonary ou tpatient. Plan - Discharge Summary Discharge Rx Participant: No New Discharge Prescriptions: New Cefdinir [Omnicef] 300 mg PO BID 4 Days #8 cap predniSONE 10 mg PO DIRECTED #30 tab Budesonide-Formot 160-4.5 Mcg [Symbicort 160-4.5 Mcg Inhaler] 2 puff INHALATION BID 30 Days #1 inhaler Albuterol Inhaler [Ventolin Hfa Inhaler] 1 puff INHALATION Q6H 30 Days #1 puff Continue Cholecalciferol [Vitamin D3 (25 Mcg = 1000 Iu)] 2,000 unit PO DAILY Nitroglycerin Sl Tabs [Nitrostat] 0.4 mg PO Q5M PRN PRN Reason: Chest Pain carvediloL [Coreg] 6.25 mg PO BID-W/MEALS #60 tab Cyanocobalamin [Vitamin B-12] 1,000 mcg PO DAILY #30 tab Folic Acid 1 mg PO DAILY Spironolactone [Aldactone] 25 mg PO BID@0800,1200 Thiamine [Vitamin B-1] 50 mg PO DAILY Allopurinol [Zyloprim] 100 mg PO DAILY Rivaroxaban [Xarelto] 10 mg PO HS Changed Torsemide [Demadex] 20 mg PO BID 30 Days #60 tab Discontinued Torsemide [Demadex] 40 mg PO DAILY Discharge Medication List Cholecalciferol [Vitamin D3 (25 Mcg = 1000 Iu)] 2,000 unit PO DAILY 05/11/19 [History] Nitroglycerin Sl Tabs [Nitrostat] 0.4 mg PO Q5M PRN 08/31/19 [History] Cyanocobalamin [Vitamin B-12] 1,000 mcg PO DAILY #30 tab 11/23/19 [Rx] carvediloL [Coreg] 6.25 mg PO BID-W/MEALS #60 tab 11/23/19 [Rx] Folic Acid 1 mg PO DAILY 01/09/20 [History] Spironolactone [Aldactone] 25 mg PO BID@0800,1200 01/09/20 [History] Thiamine [Vitamin B-1] 50 mg PO DAILY 01/09/20 [History] Allopurinol [Zyloprim] 100 mg PO DAILY 07/23/20 [History] Rivaroxaban [Xarelto] 10 mg PO HS 07/23/20 [History] Albuterol Inhaler [Ventolin Hfa Inhaler] 1 puff INHALATION Q6H 30 Days #1 puff 07/25/20 [Rx] Budesonide-Formot 160-4.5 Mcg [Symbicort 160-4.5 Mcg Inhaler] 2 puff INHALATION BID 30 Days #1 inhaler 07/25/20 [Rx] Cefdinir [Omnicef] 300 mg PO BID 4 Days #8 cap 07/25/20 [Rx] Torsemide [Demadex] 20 mg PO BID 30 Days #60 tab 07/25/20 [Rx] predniSONE 10 mg PO DIRECTED #30 tab 07/25/20 [Rx] Follow up Appointment(s)/Referral(s): Giovany Helton DO [Doctor of Osteopathic Medicine] - 1 Week (office closed Please call to make appointment ) Aristides Mena DO [Primary Care Provider] - 3 Days (office closed. Please call to make appointment ) Patient Instructions/Handouts: COPD (Chronic Obstructive Pulmonary Disease) (DC), Edema (DC) Discharge Disposition: HOME SELF-CARE
== END 2020-07-26 14:58 | disposition home or self-care (01) ==
LOC: EC 12:53 → 6NMEDSUR 15:52 → 4SSUR 07-24 00:22
PROVIDERS: ADMIT Internal Medicine; ATTEND Internal Medicine
DX: J96.01 Acute respiratory failure with hypoxia (principal); J44.1 Chronic obstructive pulmonary disease with (acute) exacerbation; T38.0X5A Adverse effect of glucocorticoids and synthetic analogues, initial encounter; B19.20 Unspecified viral hepatitis C without hepatic coma; I50.32 Chronic diastolic (congestive) heart failure; E66.9 Obesity, unspecified; I13.0 Hypertensive heart and chronic kidney disease with heart failure and stage 1 through stage 4 chronic kidney disease, or unspecified chronic kidney disease; N18.30 Chronic kidney disease, stage 3 unspecified; Z20.822 Contact with and (suspected) exposure to COVID-19; N17.9 Acute kidney failure, unspecified; E11.65 Type 2 diabetes mellitus with hyperglycemia; I48.91 Unspecified atrial fibrillation; I49.3 Ventricular premature depolarization; K21.9 Gastro-esophageal reflux disease without esophagitis; D61.818 Other pancytopenia; E11.22 Type 2 diabetes mellitus with diabetic chronic kidney disease; J40 Bronchitis, not specified as acute or chronic; K74.60 Unspecified cirrhosis of liver; M1A.9XX0 Chronic gout, unspecified, without tophus (tophi); J98.4 Other disorders of lung; I71.4 Abdominal aortic aneurysm, without rupture; M19.90 Unspecified osteoarthritis, unspecified site; G47.30 Sleep apnea, unspecified; G89.29 Other chronic pain; M54.2 Cervicalgia; M54.5 Low back pain; M25.532 Pain in left wrist; R20.0 Anesthesia of skin; Z79.01 Long term (current) use of anticoagulants; Z79.51 Long term (current) use of inhaled steroids; Z79.899 Other long term (current) drug therapy; Z79.4 Long term (current) use of insulin; Z88.5 Allergy status to narcotic agent; Z88.6 Allergy status to analgesic agent; Z88.8 Allergy status to other drugs, medicaments and biological substances; Z96.1 Presence of intraocular lens; Z98.49 Cataract extraction status, unspecified eye; Z87.01 Personal history of pneumonia (recurrent); Z87.440 Personal history of urinary (tract) infections; Z87.891 Personal history of nicotine dependence; Z98.890 Other specified postprocedural states; Z82.49 Family history of ischemic heart disease and other diseases of the circulatory system; Z80.0 Family history of malignant neoplasm of digestive organs
CPT/HCPCS: 96376 ×4; 96374; 96375; 99291; 36415; 94640 ×7; 94760; 93005; 83880; 80053 ×2; 80048; 83605; 84484; 85025; 85027; 85610; 85730; 84145; 87635; 71046; G0378 ×4; J1940 ×5; J2930 ×3; J7512 ×2

== ENCOUNTER 2021-01-31 19:45 | Inpatient (IN) | payer MEDICARE ==
[2021-01-31] MEDS ORDERED: methylPREDNISolone SOD SUCCI 125 MG/2 ML VIAL IV STA (20:45)
--- NOTE | 2021-01-31 20:52 | ED ---
General Adult HPI - General Chief complaint: Shortness of Breath Stated complaint: SOB Time Seen by Provider: 01/31/21 20:31 Source: patient Mode of arrival: wheelchair Limitations: no limitations - History of Present Illness Initial comments: 70-year-old male patient presents to the emergency department today for evaluation of shortness of breath for the last 2 weeks. States he has had worsening cough, increased sputum production, and intermittent sharp chest pains not associated with breathing or activity. States he has had diarrhea. Morley increasingly weak. He was possibly exposed to COVID. He was febrile during triage. He was unaware of fevers. He does have history of COPD, did one breathing treatment this morning. Taking his other medications as directed. He also has history of CHF and does report swelling to the lower extremities. Patie nt denies any recent rash, abdominal pain, constipation, back pain, numbness, tingling, dizziness, weakness, hematuria, dysuria, urinary urgency, urinary frequency, headache, visual changes, or any other complaints. - Related Data Home Medications Medication Instructions Recorded Confirmed Nitroglycerin Sl Tabs [Nitrostat] 0.4 mg PO Q5M PRN 08/31/19 01/31/21 Folic Acid 1 mg PO DAILY 01/09/20 01/31/21 Spironolactone [Aldactone] 25 mg PO BID@0800,1200 01/09/20 01/31/21 Thiamine [Vitamin B-1] 50 mg PO DAILY@1200 01/09/20 01/31/21 Allopurinol [Zyloprim] 100 mg PO HS 07/23/20 01/31/21 Rivaroxaban [Xarelto] 10 mg PO HS 07/23/20 01/31/21 Albuterol Inhaler [Ventolin Hfa 1 puff INHALATION RT-Q6H 01/31/21 01/31/21 Inhaler] Cholecalciferol [Vitamin D3 (25 50 mcg PO DAILY 01/31/21 01/31/21 Mcg = 1000 Iu)] Insulin Glargine,Hum.rec.anlog 30 units SQ HS 01/31/21 01/31/21 [[place] Solostar] Ipratropium-Albuterol Nebulize 3 ml INHALATION RT-QID PRN 01/31/21 01/31/21 [Duoneb 0.5 mg-3 mg/3 ml Soln] Torsemide [Demadex] 20 mg PO DAILY@1200 01/31/21 01/31/21 Torsemide [Demadex] 40 mg PO DAILY 01/31/21 01/31/21 Previous Rx's Medication Instructions Recorded Cyanocobalamin [Vitamin B-12] 1,000 mcg PO DAILY #30 tab 11/23/19 carvediloL [Coreg] 6.25 mg PO BID-W/MEALS #60 tab 11/23/19 Allergies Allergy/AdvReac Type Severity Reaction Status Date / Time codeine Allergy Rash/Hives Verified 01/31/21 23:05 ibuprofen Allergy Unknown Verified 01/31/21 23:05 apixaban [From Eliquis] AdvReac Rash/Hives Verified 01/31/21 23:05 dabigatran etexilate AdvReac Rash/Hives Verified 01/31/21 23:05 [From Pradaxa] midodrine AdvReac Rash/Hives Verified 01/31/21 23:05 Review of Systems ROS Statement: Those systems with pertinent positive or pertinent negative responses have been documented in the HPI. ROS Other: All systems not noted in ROS Statement are negative. Past Medical History Past Medical History: Atrial Fibrillation, Asthma, Heart Failure, COPD, Deep Vein Thrombosis (DVT), GERD/Reflux, Hypertension, Liver Disease, Osteoarthritis (OA), Pneumonia, Renal Disease Additional Past Medical History / Comment(s): Other hx: Pt states L wrist pain now goes all the way up L arm, recent AAA surgery, chronic chf, bronchitis, liver cirrhosis, hepatitis C treated 3 times, CKD stage III, anemia, thrombocytopenia, pancytopenia-pt recently saw Dr. Matthews, pt states recently told he has diabetes, numbness R lower leg, chronic gout bilateral feet, UTI, chronic low back pain, cervical pain History of Any Multi-Drug Resistant Organisms: None Reported Past Surgical History: Heart Catheterization With Stent, Hernia Repair, Orthopedic Surgery Additional Past Surgical History / Comment(s): Percutaneous endovascjlar abdominal aortic anuerysm repair, EGD, colonoscopies, bilateral cataract removals/lens implants, R shoulder rotator cuff repair, umbilical hernia repair. Past Anesthesia/Blood Transfusion Reactions: Motion Sickness Additional Past Anesthesia/Blood Transfusion Reaction / Comment(s): Pt has received blood without reaction. Date of Last Stent Placement:: 01/2020 Past Psychological History: Depression Smoking Status: Former smoker Past Alcohol Use History: Occasional Past Drug Use History: Marijuana - Past Family History Mother Family Medical History: Cancer Additional Family Medical History / Comment(s): Mother of liver cancer. Father Family Medical History: Myocardial Infarction ([place]) Additional Family Medical History / Comment(s): Father of a [place] at the age of 48yrs. General Exam Limitations: no limitations General appearance: alert, in no apparent distress, other (This is a well- developed, well-nourished elderly male in respiratory distress.) ENT exam: Present: normal exam, normal oropharynx, mucous membranes moist Respiratory exam: Present: wheezes (Inspiratory and expiratory wheezing), other (Tachypnea, 3 to 4 word sentences.). Absent: respiratory distress, rales, rhonchi, stridor Cardiovascular Exam: Present: regular rate, normal rhythm, normal heart sounds. Absent: systolic murmur, diastolic murmur, rubs, gallop, clicks GI/Abdominal exam: Present: soft, normal bowel sounds. Absent: distended, tenderness, guarding, rebound, rigid Extremities exam: Present: full ROM, normal capillary refill, other (There is 2+ pitting edema noted to the bilateral lower legs, weeping on the right.). Absen t: tenderness, pedal edema, joint swelling, calf tenderness Neurological exam: Present: alert, oriented X3, CN II-XII intact Psychiatric exam: Present: normal affect, normal mood Skin exam: Present: warm, dry, intact, normal color. Absent: rash Course Vital Signs 01/31/21 01/31/21 02/01/21 20:21 20:35 00:11 Temperature 99.2 F 97.3 F L Pulse Rate 96 106 H 101 H Respiratory 28 H 18 18 Rate Blood Pressure 94/69 100/73 83/60 O2 Sat by Pulse 93 L 95 94 L Oximetry EKG Findings - EKG Comments: EKG Findings:: EKG obtained at 2034 shows A. fib with RVR, ventricular rate 111, QRS duration 96, QT 408, QTC 554. No evidence of ST elevation or depression. EKG #2 obtained at 19 shows A. fib with incomplete right bundle branch block, ventricular rate 93, QRS duration 104, QT 432, QTc 537. No evidence of ST elevation or depression. Medical Decision Making - Medical Decision Making 70 year-old male patient presents to the ED for evaluation of progressively worsening shortness of breath over the last two weeks. Physical examination did reveal inspiratory and expiratory wheezing in the posterior lung navarro. - Lab Data Result diagrams: 01/31/21 21:00 01/31/21 21:00 Lab Results 01/31/21 01/31/21 01/31/21 Range/Units 21:00 21:00 21:00 WBC 2.8 L (3.8-10.6) k/uL RBC 3.82 L (4.30-5.90) m/uL Hgb 14.0 (13.0-17.5) gm/dL Hct 38.7 L (39.0-53.0) % MCV 101.2 H (80.0-100.0) fL MCH 36.7 H (25.0-35.0) pg MCHC 36.3 (31.0-37.0) g/dL RDW 13.6 (11.5-15.5) % Plt Count 43 L (150-450) k/uL MPV 12.4 Neutrophils % 68 % Lymphocytes % 20 % Monocytes % 10 % Eosinophils % 0 % Basophils % 0 % Neutrophils # 1.9 (1.3-7.7) k/uL Lymphocytes # 0.6 L (1.0-4.8) k/uL Monocytes # 0.3 (0-1.0) k/uL Eosinophils # 0.0 (0-0.7) k/uL Basophils # 0.0 (0-0.2) k/uL Manual Slide Review Performed Large Platelets Present Anisocytosis (manual) Present Macrocytosis Slight PT 11.8 (9.0-12.0) sec INR 1.1 (<1.2) APTT 35.7 H (22.0-30.0) sec Sodium 125 L (137-145) mmol/L Potassium 4.2 (3.5-5.1) mmol/L Chloride 98 (98-107) mmol/L Carbon Dioxide 19 L (22-30) mmol/L Anion Gap 8 mmol/L BUN 46 H (9-20) mg/dL Creatinine 2.08 H (0.66-1.25) mg/dL Est GFR (CKD-EPI)AfAm 36 (>60 ml/min/1.73 sqM) Est GFR (CKD-EPI)NonAf 31 (>60 ml/min/1.73 sqM) Glucose 122 H (74-99) mg/dL Plasma Lactic Acid Gopi (0.7-2.0) mmol/L Calcium 7.8 L (8.4-10.2) mg/dL Magnesium 1.9 (1.6-2.3) mg/dL Total Bilirubin 1.9 H (0.2-1.3) mg/dL AST 76 H (17-59) U/L ALT 31 (4-49) U/L Alkaline Phosphatase 95 (38-126) U/L Troponin I (0.000-0.034) ng/mL NT-Pro-B Natriuret Pep pg/mL Total Protein 6.5 (6.3-8.2) g/dL Albumin 2.9 L (3.5-5.0) g/dL Coronavirus (PCR) (Not Detectd) 01/31/21 01/31/21 01/31/21 Range/Units 21:00 21:00 21:00 WBC (3.8-10.6) k/uL RBC (4.30-5.90) m/uL Hgb (13.0-17.5) gm/dL Hct (39.0-53.0) % MCV (80.0-100.0) fL MCH (25.0-35.0) pg MCHC (31.0-37.0) g/dL RDW (11.5-15.5) % Plt Count (150-450) k/uL MPV Neutrophils % % Lymphocytes % % Monocytes % % Eosinophils % % Basophils % % Neutrophils # (1.3-7.7) k/uL Lymphocytes # (1.0-4.8) k/uL Monocytes # (0-1.0) k/uL Eosinophils # (0-0.7) k/uL Basophils # (0-0.2) k/uL Manual Slide Review Large Platelets Anisocytosis (manual) Macrocytosis PT (9.0-12.0) sec INR (<1.2) APTT (22.0-30.0) sec Sodium (137-145) mmol/L Potassium (3.5-5.1) mmol/L Chloride (98-107) mmol/L Carbon Dioxide (22-30) mmol/L Anion Gap mmol/L BUN (9-20) mg/dL Creatinine (0.66-1.25) mg/dL Est GFR (CKD-EPI)AfAm (>60 ml/min/1.73 sqM) Est GFR (CKD-EPI)NonAf (>60 ml/min/1.73 sqM) Glucose (74-99) mg/dL Plasma Lactic Acid Gopi 1.7 (0.7-2.0) mmol/L Calcium (8.4-10.2) mg/dL Magnesium (1.6-2.3) mg/dL Total Bilirubin (0.2-1.3) mg/dL AST (17-59) U/L ALT (4-49) U/L Alkaline Phosphatase (38-126) U/L Troponin I 0.042 H* (0.000-0.034) ng/mL NT-Pro-B Natriuret Pep 359 pg/mL Total Protein (6.3-8.2) g/dL Albumin (3.5-5.0) g/dL Coronavirus (PCR) (Not Detectd) 01/31/21 Range/Units 21:00 WBC (3.8-10.6) k/uL RBC (4.30-5.90) m/uL Hgb (13.0-17.5) gm/dL Hct (39.0-53.0) % MCV (80.0-100.0) fL MCH (25.0-35.0) pg MCHC (31.0-37.0) g/dL RDW (11.5-15.5) % Plt Count (150-450) k/uL MPV Neutrophils % % Lymphocytes % % Monocytes % % Eosinophils % % Basophils % % Neutrophils # (1.3-7.7) k/uL Lymphocytes # (1.0-4.8) k/uL Monocytes # (0-1.0) k/uL Eosinophils # (0-0.7) k/uL Basophils # (0-0.2) k/uL Manual Slide Review Large Platelets Anisocytosis (manual) Macrocytosis PT (9.0-12.0) sec INR (<1.2) APTT (22.0-30.0) sec Sodium (137-145) mmol/L Potassium (3.5-5.1) mmol/L Chloride (98-107) mmol/L Carbon Dioxide (22-30) mmol/L Anion Gap mmol/L BUN (9-20) mg/dL Creatinine (0.66-1.25) mg/dL Est GFR (CKD-EPI)AfAm (>60 ml/min/1.73 sqM) Est GFR (CKD-EPI)NonAf (>60 ml/min/1.73 sqM) Glucose (74-99) mg/dL Plasma Lactic Acid Gopi (0.7-2.0) mmol/L Calcium (8.4-10.2) mg/dL Magnesium (1.6-2.3) mg/dL Total Bilirubin (0.2-1.3) mg/dL AST (17-59) U/L ALT (4-49) U/L Alkaline Phosphatase (38-126) U/L Troponin I (0.000-0.034) ng/mL NT-Pro-B Natriuret Pep pg/mL Total Protein (6.3-8.2) g/dL Albumin (3.5-5.0) g/dL Coronavirus (PCR) Detected A (Not Detectd) Disposition Clinical Impression: COVID-19, Respiratory distress, Hyponatremia, Elevated troponin Disposition: ADMITTED IP TO THIS [facility] Condition: Serious Decision to Admit Reason: Admit from EC Decision Date: 01/31/21 Decision Time: 23:29
[2021-01-31] MEDS ORDERED: ACETAMINOPHEN TAB 500 MG TAB PO STA (21:24)
[2021-01-31 21:29] LABS: Albumin 2.9 g/dL (3.5-5.0); Calcium 7.8 mg/dL (8.4-10.2); Magnesium 1.9 mg/dL (1.6-2.3); Potassium 4.2 mmol/L (3.5-5.1); Total Bilirubin 1.9 mg/dL (0.2-1.3); Total Protein 6.5 g/dL (6.3-8.2)
[2021-01-31 21:41] LABS: Basophils % (A) 0 %; Eosinophils % (A) 0 %; HCT 38.7 % (39.0-53.0); INR 1.1 (<1.2); Lymphocytes # (A) 0.6 k/uL (1.0-4.8); Lymphocytes % (A) 20 %; MCH 36.7 pg (25.0-35.0); MCHC 36.3 g/dL (31.0-37.0); MCV 101.2 fL (80.0-100.0); Macrocytosis Slight; Mean Platelet Volume 12.4; Monocytes # (A) 0.3 k/uL (0-1.0); Monocytes % (A) 10 %; Neutrophils # (A) 1.9 k/uL (1.3-7.7); Neutrophils % (A) 68 %; Partial Thromboplastin Time 35.7 sec (22.0-30.0); Prothrombin Time 11.8 sec (9.0-12.0); RBC 3.82 m/uL (4.30-5.90); RDW 13.6 % (11.5-15.5); WBC 2.8 k/uL (3.8-10.6)
--- NOTE | 2021-01-31 21:47 | XR ---
EXAMINATION TYPE: XR chest 2V DATE OF EXAM: 01/31/2021 COMPARISON: 07/23/2020 HISTORY: Difficulty breathing TECHNIQUE: FINDINGS: There is no heart failure nor confluent pneumonic infiltrate. Costophrenic angles are clear . There are chest leads. Bony thorax is intact. IMPRESSION: No active cardiopulmonary disease. No change.
[2021-01-31] MEDS ORDERED: ALBUTEROL HFA INHALER INHALATION PRN (21:48)
[2021-01-31] MEDS ORDERED: ALBUTEROL HFA INHALER INHALATION STA (21:48)
[2021-01-31] MEDS ORDERED: ACETAMINOPHEN TAB 325 MG TAB PO PRN (23:24)
[2021-01-31] MEDS ORDERED: NALOXONE 0.4 MG/ML 1 ML VIAL IV PRN (23:24)
[2021-02-01] MEDS: SODIUM CHLORIDE 0.9% 500 ML 500 ML IV SCH (00:10)
[2021-02-01 00:30] LABS: Large Platelets Present
[2021-02-01 00:31] LABS: Anisocytosis (M) Present
[2021-02-01 00:32] LABS: Platelet Count 43 k/uL (150-450)
[2021-02-01] MEDS: ALBUTEROL HFA INHALER INHALATION SCH ×5 (03:14→19:48)
[2021-02-01 03:31] LABS: Basophils % (A) 1 %; Eosinophils % (A) 1 %; HCT 36.8 % (39.0-53.0); HGB 12.8 gm/dL (13.0-17.5); Lymphocytes # (A) 0.3 k/uL (1.0-4.8); Lymphocytes % (A) 24 %; MCH 36.2 pg (25.0-35.0); MCHC 34.9 g/dL (31.0-37.0); MCV 103.7 fL (80.0-100.0); Macrocytosis Slight; Mean Platelet Volume 12.8; Monocytes # (A) 0.1 k/uL (0-1.0); Monocytes % (A) 6 %; Neutrophils # (A) 0.8 k/uL (1.3-7.7); Neutrophils % (A) 67 %; RBC 3.55 m/uL (4.30-5.90); RDW 13.6 % (11.5-15.5)
[2021-02-01] MEDS: SODIUM CHLORIDE 0.9% 1,000 ML IV SCH ×2 (03:35→11:52)
[2021-02-01 04:11] LABS: Albumin 2.7 g/dL (3.5-5.0); Calcium 7.6 mg/dL (8.4-10.2); Magnesium 1.9 mg/dL (1.6-2.3); Potassium 3.6 mmol/L (3.5-5.1); Total Bilirubin 1.6 mg/dL (0.2-1.3); Total Protein 5.9 g/dL (6.3-8.2)
[2021-02-01 05:02] LABS: WBC 1.2 k/uL (3.8-10.6)
[2021-02-01 05:03] LABS: Platelet Count 30 k/uL (150-450)
[2021-02-01] MEDS ORDERED: IPRATROPIUM-ALBUTEROL 3 ML NEB INHALATION STA (05:10)
[2021-02-01 06:56] LABS: Large Platelets Present
[2021-02-01] MEDS ORDERED: ALBUTEROL HFA INHALER INHALATION SCH (08:00)
[2021-02-01] MEDS ORDERED: FAMOTIDINE 20 MG TAB PO SCH (09:00)
[2021-02-01] MEDS ORDERED: DEXAMETHASONE SOD PHOSPHATE 10 MG/ML 1 ML VIAL IVP SCH (09:00)
[2021-02-01 09:38] LABS: INR 1.2 (<1.2); Prothrombin Time 12.2 sec (9.0-12.0)
[2021-02-01] MEDS: CHOLECALCIFEROL 125 MCG (5000 IU) TABLET PO SCH (09:48)
[2021-02-01] MEDS: ZINC SULFATE 220 MG CAP PO SCH (09:48)
[2021-02-01] MEDS: CYANOCOBALAMIN 500 MCG TAB PO SCH ×2 (09:48→11:47)
[2021-02-01] MEDS: FOLIC ACID 1 MG TAB PO SCH (09:49)
[2021-02-01] MEDS: ASCORBIC ACID 500 MG TAB PO SCH (09:49)
--- NOTE | 2021-02-01 10:07 | P.HPIM ---
History of Present Illness This is a pleasant 70 years old male with past medical history of Atrial Fibrillation on xarelto, Asthma, Heart Failure, COPD, Deep Vein Thrombosis , GERD, Hypertension, Osteoarthritis, s/p recent AAA surgery, liver cirrhosis, hepatitis C treated 3 times, CKD stage III, anemia, thrombocytopenia, pancytopenia-pt recently saw Dr. Matthews, pt states recently told he has diabetes, numbness R lower leg, chronic gout bilateral feet, chronic low back pain, cervical pain Heart Catheterization With Stent. He is a patient of Dr. Mena. His bander operator is Dr. Gooden, party plan selling distributor Dr. Post and GI Dr. Palomares whom he have not been seen for more than a year. Daughter at bedside Patient presents because of worsening dyspnea for the last 2 weeks that more severe over the last few days associated with dry hacking cough. With on and off central lower anterior chest pain, nonradiating felt like sharp last between 10-30 minutes before it recurs again. Currently his with no chest pain while talking to him. Also he has diarrhea and watery twice per day but no abdominal pain or vomiting. He denies smoking, alcohol or illicit drugs. On admission patient has been afebrile, blood pressure on the low side currently is 90/60. Patient is saturating 95% and a 3 L oxygen via nasal cannula, at room air was 93% CBC showing pancytopenia with WBC 1.2, hemoglobin 12.8 and platelet count 30. INR is 1.1, d-dimer elevated at 3.9. Sodium was low at 125-126, baseline sodium 132-135 Elevated creatinine 2.0 and 2.4 compared to baseline of 1.5-1.8 Elevated troponin 0.04 and 0.03 Liver enzymes elevated. D-dimer is elevated at 3.9 ProBNP is normal at 359. Coronavirus is detected EKG showing atrial fibrillation with a rate of 93 and QTC 437. Chest x-ray: No acute cardiopulmonary process per Patient does not receive aspirin or blood thinners in the emergency room Review of Systems CONSTITUTIONAL: No fever, no malaise, no fatigue. HEENT: No recent visual problems or hearing problems. Denied any sore throat. CARDIOVASCULAR: No orthopnea, PND, no palpitations, no syncope. PULMONARY: No chest wall tenderness, no hemoptysis. GASTROINTESTINAL: No diarrhea, no nausea, no vomiting, no abdominal pain. Nor moactive bowel sounds. NEUROLOGICAL: No headaches, no weakness, no numbness. HEMATOLOGICAL: Denies any bleeding or petechiae. GENITOURINARY: Denies any burning micturition, frequency, or urgency. MUSCULOSKELETAL/RHEUMATOLOGICAL: Denies any joint pain, swelling, or any muscle pain. ENDOCRINE: Denies any polyuria or polydipsia. Past Medical History Past Medical History: Atrial Fibrillation, Asthma, Heart Failure, COPD, Deep Vein Thrombosis (DVT), GERD/Reflux, Hypertension, Liver Disease, Osteoarthritis (OA), Pneumonia, Renal Disease Additional Past Medical History / Comment(s): Other hx: Pt states L wrist pain now goes all the way up L arm, recent AAA surgery, chronic chf, bronchitis, liver cirrhosis, hepatitis C treated 3 times, CKD stage III, anemia, thrombocytopenia, pancytopenia-pt recently saw Dr. Matthews, pt states recently told he has diabetes, numbness R lower leg, chronic gout bilateral feet, UTI, chronic low back pain, cervical pain History of Any Multi-Drug Resistant Organisms: None Reported Past Surgical History: Heart Catheterization With Stent, Hernia Repair, Orthopedic Surgery Additional Past Surgical History / Comment(s): Percutaneous endovascjlar abdominal aortic anuerysm repair, EGD, colonoscopies, bilateral cataract rem ovals/lens implants, R shoulder rotator cuff repair, umbilical hernia repair. Past Anesthesia/Blood Transfusion Reactions: Motion Sickness Additional Past Anesthesia/Blood Transfusion Reaction / Comment(s): Pt has received blood without reaction. Date of Last Stent Placement:: 01/2020 Past Psychological History: Depression Smoking Status: Former smoker Past Alcohol Use History: Occasional Past Drug Use History: Marijuana - Past Family History Mother Family Medical History: Cancer Additional Family Medical History / Comment(s): Mother of liver cancer. Father Family Medical History: Myocardial Infarction ([place]) Additional Family Medical History / Comment(s): Father of a [place] at the age of 48yrs. Medications and Allergies Home Medications Medication Instructions Recorded Confirmed Type Nitroglycerin Sl Tabs [Nitrostat] 0.4 mg PO Q5M PRN 08/31/19 01/31/21 History Cyanocobalamin [Vitamin B-12] 1,000 mcg PO DAILY #30 tab 11/23/19 01/31/21 Rx carvediloL [Coreg] 6.25 mg PO BID-W/MEALS #60 tab 11/23/19 01/31/21 Rx Folic Acid 1 mg PO DAILY 01/09/20 01/31/21 History Spironolactone [Aldactone] 25 mg PO BID@0800,1200 01/09/20 01/31/21 History Thiamine [Vitamin B-1] 50 mg PO DAILY@1200 01/09/20 01/31/21 History Allopurinol [Zyloprim] 100 mg PO HS 07/23/20 01/31/21 History Rivaroxaban [Xarelto] 10 mg PO HS 07/23/20 01/31/21 History Albuterol Inhaler [Ventolin Hfa 1 puff INHALATION RT-Q6H 01/31/21 01/31/21 H istory Inhaler] Cholecalciferol [Vitamin D3 (25 50 mcg PO DAILY 01/31/21 01/31/21 History Mcg = 1000 Iu)] Insulin Glargine,Hum.rec.anlog 30 units SQ HS 01/31/21 01/31/21 History [William Solostar] Ipratropium-Albuterol Nebulize 3 ml INHALATION RT-QID PRN 01/31/21 01/31/21 History [Duoneb 0.5 mg-3 mg/3 ml Soln] Torsemide [Demadex] 20 mg PO DAILY@1200 01/31/21 01/31/21 History Torsemide [Demadex] 40 mg PO DAILY 01/31/21 01/31/21 History Allergies Allergy/AdvReac Type Severity Reaction Status Date / Time codeine Allergy Rash/Hives Verified 01/31/21 23:05 ibuprofen Allergy Unknown Verified 01/31/21 23:05 apixaban [From Eliquis] AdvReac Rash/Hives Verified 01/31/21 23:05 dabigatran etexilate AdvReac Rash/Hives Verified 01/31/21 23:05 [From Pradaxa] midodrine AdvReac Rash/Hives Verified 01/31/21 23:05 Physical Exam Vitals: Vital Signs Temp Pulse Resp BP Pulse Ox 02/01/21 07:40 86 20 90/60 97 02/01/21 04:43 98 20 90/67 95 02/01/21 03:36 89 18 92/67 94 L 02/01/21 02:00 96 18 105/65 95 02/01/21 00:11 97.3 F L 101 H 18 83/60 94 L 01/31/21 20:35 106 H 18 100/73 95 01/31/21 20:21 99.2 F 96 28 H 94/69 93 L Intake and Output 01/31/21 02/01/21 02/01/21 22:59 06:59 14:59 Other: Weight 145.15 kg GENERAL: The patient is alert and oriented x3, not in any acute distress. Well developed, well nourished. HEENT: Pupils are round and equally reacting to light. EOMI. No scleral icterus. No conjunctival pallor. Normocephalic, atraumatic. No pharyngeal erythema. No thyromegaly. CARDIOVASCULAR: S1 and S2 present. No murmurs, rubs, or gallops. -PULMONARY: Chest is clear to auscultation, no wheezing or crackles. Mild prolongation of expiratory phase. Patient is tachypneic. ABDOMEN: Soft, nontender, nondistended, normoactive bowel sounds. No palpable organomegaly. MUSCULOSKELETAL: No joint swelling or deformity. EXTREMITIES: No cyanosis, clubbing, or pedal edema. NEUROLOGICAL: Gross neurological examination did not reveal any focal deficits. SKIN: No rashes. No petechiae Results CBC & Chem 7: 02/01/21 02:51 02/01/21 02:51 Labs: Abnormal Lab Results - Last 24 Hours (Table) 01/31/21 01/31/21 01/31/21 Range/Units 21:00 21:00 21:00 WBC 2.8 L (3.8-10.6) k/uL RBC 3.82 L (4.30-5.90) m/uL Hgb (13.0-17.5) gm/dL Hct 38.7 L (39.0-53.0) % MCV 101.2 H (80.0-100.0) fL MCH 36.7 H (25.0-35.0) pg Plt Count 43 L (150-450) k/uL Neutrophils # (1.3-7.7) k/uL Lymphocytes # 0.6 L (1.0-4.8) k/uL APTT 35.7 H (22.0-30.0) sec D-Dimer (<0.60) mg/L FEU Sodium 125 L (137-145) mmol/L Carbon Dioxide 19 L (22-30) mmol/L BUN 46 H (9-20) mg/dL Creatinine 2.08 H (0.66-1.25) mg/dL Glucose 122 H (74-99) mg/dL Calcium 7.8 L (8.4-10.2) mg/dL Total Bilirubin 1.9 H (0.2-1.3) mg/dL AST 76 H (17-59) U/L Troponin I (0.000-0.034) ng/mL Total Protein (6.3-8.2) g/dL Albumin 2.9 L (3.5-5.0) g/dL Coronavirus (PCR) (Not Detectd) 01/31/21 01/31/21 02/01/21 Range/Units 21:00 21:00 00:18 WBC (3.8-10.6) k/uL RBC (4.30-5.90) m/uL Hgb (13.0-17.5) gm/dL Hct (39.0-53.0) % MCV (80.0-100.0) fL MCH (25.0-35.0) pg Plt Count (150-450) k/uL Neutrophils # (1.3-7.7) k/uL Lymphocytes # (1.0-4.8) k/uL APTT (22.0-30.0) sec D-Dimer (<0.60) mg/L FEU Sodium (137-145) mmol/L Carbon Dioxide (22-30) mmol/L BUN (9-20) mg/dL Creatinine (0.66-1.25) mg/dL Glucose (74-99) mg/dL Calcium (8.4-10.2) mg/dL Total Bilirubin (0.2-1.3) mg/dL AST (17-59) U/L Troponin I 0.042 H* 0.043 H* (0.000-0.034) ng/mL Total Protein (6.3-8.2) g/dL Albumin (3.5-5.0) g/dL Coronavirus (PCR) Detected A (Not Detectd) 02/01/21 02/01/21 02/01/21 Range/Units 02:51 02:51 02:51 WBC 1.2 L* (3.8-10.6) k/uL RBC 3.55 L (4.30-5.90) m/uL Hgb 12.8 L (13.0-17.5) gm/dL Hct 36.8 L (39.0-53.0) % MCV 103.7 H (80.0-100.0) fL MCH 36.2 H (25.0-35.0) pg Plt Count 30 L (150-450) k/uL Neutrophils # 0.8 L (1.3-7.7) k/uL Lymphocytes # 0.3 L (1.0-4.8) k/uL APTT (22.0-30.0) sec D-Dimer 3.90 H (<0.60) mg/L FEU Sodium (137-145) mmol/L Carbon Dioxide (22-30) mmol/L BUN (9-20) mg/dL Creatinine (0.66-1.25) mg/dL Glucose (74-99) mg/dL Calcium (8.4-10.2) mg/dL Total Bilirubin (0.2-1.3) mg/dL AST (17-59) U/L Troponin I 0.038 H* (0.000-0.034) ng/mL Total Protein (6.3-8.2) g/dL Albumin (3.5-5.0) g/dL Coronavirus (PCR) (Not Detectd) 02/01/21 Range/Units 02:51 WBC (3.8-10.6) k/uL RBC (4.30-5.90) m/uL Hgb (13.0-17.5) gm/dL Hct (39.0-53.0) % MCV (80.0-100.0) fL MCH (25.0-35.0) pg Plt Count (150-450) k/uL Neutrophils # (1.3-7.7) k/uL Lymphocytes # (1.0-4.8) k/uL APTT (22.0-30.0) sec D-Dimer (<0.60) mg/L FEU Sodium 126 L (137-145) mmol/L Carbon Dioxide 17 L (22-30) mmol/L BUN 48 H (9-20) mg/dL Creatinine 2.40 H (0.66-1.25) mg/dL Glucose 178 H (74-99) mg/dL Calcium 7.6 L (8.4-10.2) mg/dL Total Bilirubin 1.6 H (0.2-1.3) mg/dL AST (17-59) U/L Troponin I (0.000-0.034) ng/mL Total Protein 5.9 L (6.3-8.2) g/dL Albumin 2.7 L (3.5-5.0) g/dL Coronavirus (PCR) (Not Detectd) Assessment and Plan Assessment: Elevated troponin, associated with recurrent central chest pain rule out cardiac causes acute kidney disease on chronic kidney disease Chronic Atrial Fibrillation on xarelto COVID-19 infection without evidence of pneumonia Chronic heart failure Diarrhea Liver cirrhosis CKD, stage III Hyponatremia History of coronary artery disease status post stent History of pancytopenia History of asthma/COPD History of deep venous thrombosis History of GERD History of osteoarthritis History of recent AAA surgery History of hepatitis C treated 3 Chronic back pain and neck pain History of gout History of chronic numbness of the right lower leg 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 fib, covid infection and pancytopenia Cardiology consult Continue with multiple vitamins, vitamin C, vitamin D and zinc Consult hematology team for pancytopenia. In the meantime discontinue Xarelto f or thrombocytopenia (patient did not get the dose on admission ) Nephrology consult, check bladder scan. Continue gentle hydration pulmonary consult check for C. diff, although suspicion is low Labs and medication were reviewed.. Continue same treatment. Continue with symptomatic treatment. Resume home medication. Monitor lytes and vitals. DVT and GI prophylaxis. Further recommendations depends on the clinical course of the patient DVT prophylaxis no Anticoagulation in view of severe thrombocytopenia GI Prophylaxis: Ppi PT/OT: Pending Prognosis is guarded
--- NOTE | 2021-02-01 10:51 | P.NPCON ---
History of Present Illness - Reason for Consult acute renal failure, chronic renal failure - History of Present Illness Reason for consultation: Acute kidney injury on chronic kidney disease History of present illness: Patient is a 70-year-old male seen in renal consultation for acute kidney injury on chronic kidney disease. Patient presented to the hospital with generalized weakness and shortness of breath going on for about 3-4 days. He's also been having diarrhea. Patient's oral intake for the last 1 week has been poor. He does admit to drinking quite a bit of fluids. He has history of systolic CHF with ejection fraction of 40-45%. No edema. Has been voiding. No hematuria or dysuria. He was taking diuretics at home which are currently held. He is receiving normal saline at 75 mL an hour. He also has a history of liver cirrhosis. Creatinine on admission was 2.08 and is up at 2.4 today. Sodium level is improved from 125-126. Chest x-ray nonsuggestive of fluid overload. He did test positive for COVID-19. Vital signs are stable. General: The patient appeared well nourished and normally developed. HEENT: Head exam is unremarkable. On nasal cannula. LUNGS: Breath sounds decreased. HEART: Rate and Rhythm are regular. ABDOMEN: Soft, no distention. EXTREMITITES: No edema. Past Medical History Past Medical History: Atrial Fibrillation, Asthma, Heart Failure, COPD, Deep Vein Thrombosis (DVT), GERD/Reflux, Hypertension, Liver Disease, Osteoarthritis (OA), Pneumonia, Renal Disease Additional Past Medical History / Comment(s): Other hx: Pt states L wrist pain now goes all the way up L arm, recent AAA surgery, chronic chf, bronchitis, liver cirrhosis, hepatitis C treated 3 times, CKD stage III, anemia, t hrombocytopenia, pancytopenia-pt recently saw Dr. Matthews, pt states recently told he has diabetes, numbness R lower leg, chronic gout bilateral feet, UTI, chronic low back pain, cervical pain History of Any Multi-Drug Resistant Organisms: None Reported Past Surgical History: Heart Catheterization With Stent, Hernia Repair, Orthopedic Surgery Additional Past Surgical History / Comment(s): Percutaneous endovascjlar abdominal aortic anuerysm repair, EGD, colonoscopies, bilateral cataract removals/lens implants, R shoulder rotator cuff repair, umbilical hernia repair. Past Anesthesia/Blood Transfusion Reactions: Motion Sickness Additional Past Anesthesia/Blood Transfusion Reaction / Comment(s): Pt has received blood without reaction. Date of Last Stent Placement:: 01/2020 Past Psychological History: Depression Smoking Status: Former smoker Past Alcohol Use History: Occasional Past Drug Use History: Marijuana - Past Family History Mother Family Medical History: Cancer Additional Family Medical History / Comment(s): Mother of liver cancer. Father Family Medical History: Myocardial Infarction ([place]) Additional Family Medical History / Comment(s): Father of a [place] at the age of 48yrs. Medications and Allergies Home Medications Medication Instructions Recorded Confirmed Type Nitroglycerin Sl Tabs [Nitrostat] 0.4 mg PO Q5M PRN 08/31/19 01/31/21 History Cyanocobalamin [Vitamin B-12] 1,000 mcg PO DAILY #30 tab 11/23/19 01/31/21 Rx carvediloL [Coreg] 6.25 mg PO BID-W/MEALS #60 tab 11/23/19 01/31/21 Rx Folic Acid 1 mg PO DAILY 01/09/20 01/31/21 History Spironolactone [Aldactone] 25 mg PO BID@0800,1200 01/09/20 01/31/21 History Thiamine [Vitamin B-1] 50 mg PO DAILY@1200 01/09/20 01/31/21 History Allopurinol [Zyloprim] 100 mg PO HS 07/23/20 01/31/21 History Rivaroxaban [Xarelto] 10 mg PO HS 07/23/20 01/31/21 History Albuterol Inhaler [Ventolin Hfa 1 puff INHALATION RT-Q6H 01/31/21 01/31/21 History Inhaler] Cholecalciferol [Vitamin D3 (25 50 mcg PO DAILY 01/31/21 01/31/21 History Mcg = 1000 Iu)] Insulin Glargine,Hum.rec.anlog 30 units SQ HS 01/31/21 01/31/21 History [Toujeo Solostar] Ipratropium-Albuterol Nebulize 3 ml INHALATION RT-QID PRN 01/31/21 01/31/21 History [Duoneb 0.5 mg-3 mg/3 ml Soln] Torsemide [Demadex] 20 mg PO DAILY@1200 01/31/21 01/31/21 History Torsemide [Demadex] 40 mg PO DAILY 01/31/21 01/31/21 History Allergies Allergy/AdvReac Type Severity Reaction Status Date / Time codeine Allergy Rash/Hives Verified 01/31/21 23:05 ibuprofen Allergy Unknown Verified 01/31/21 23:05 apixaban [From Eliquis] AdvReac Rash/Hives Verified 01/31/21 23:05 dabigatran etexilate AdvReac Rash/Hives Verified 01/31/21 23:05 [From Pradaxa] midodrine AdvReac Rash/Hives Verified 01/31/21 23:05 Physical Exam Vitals: Vital Signs Temp Pulse Resp BP Pulse Ox 02/01/21 09:49 22 02/01/21 09:10 91 20 109/71 93 L 02/01/21 08:20 87 20 107/76 93 L 02/01/21 07:40 86 20 90/60 97 02/01/21 04:43 98 20 90/67 95 02/01/21 03:36 89 18 92/67 94 L 02/01/21 02:00 96 18 105/65 95 02/01/21 00:11 97.3 F L 101 H 18 83/60 94 L 01/31/21 20:35 106 H 18 100/73 95 01/31/21 20:21 99.2 F 96 28 H 94/69 93 L Intake and Output 01/31/21 02/01/21 02/01/21 22:59 06:59 14:59 Other: Weight 145.15 kg Results - Lab Results Most recent lab results Calcium 7.6 mg/dL (8.4-10.2) L 02/01/21 02:51 Magnesium 1.9 mg/dL (1.6-2.3) 02/01/21 02:51 02/01/21 02:51 02/01/21 02:51 Assessment and Plan Plan: Assessment: 1. Acute kidney injury secondary to ATN secondary to COVID-19 infection. Creatinine 2.4 today. 2. Chronic kidney disease stage IIIB with baseline creatinine near 1.5 secondary to diabetic kidney disease and nephrosclerosis. 3. Hypovolemic hyponatremia. 4. COVID-19 pneumonia. 5. Diabetes mellitus. 6. Metabolic acidosis secondary to acute kidney injury. 7. Liver cirrhosis. Plan: Maintain normal saline. Continue to hold diuretics. 1500 mL fluid restriction. Encourage oral intake. Check urinalysis and renal ultrasound. Add oral sodium bicarb. Repeat labs in the morning. Thank you for the consultation. I will continue to follow patient with you during his hospital stay.
--- NOTE | 2021-02-01 11:30 | P.CRDCN ---
History of Present Illness Consult date: 02/01/21 Reason for Consult (text): Elevated troponins Chief complaint: COVID-19 respiratory distress History of present illness: This is Gt Peña NP dictating a consult on this patient on behalf of Dr. Thorpe. The patient was interviewed and examined. HPI: [Patient is a pleasant 70-year-old male with a past medical history of COPD, CHF, atrial fibrillation, asthma, DVT, GERD, hypertension, liver disease, osteoarthritis, pneumonia, and renal disease. Patient initially presented to the hospital with shortness of breath for approximately the last 2 weeks. Patient's cc had a worsening cough, with increased sputum, and on and off chest pain that come and gone. Patient reports intermittent diarrhea. Initial homar luation of the patient found the patient was in rate controlled atrial fibrillation on EKG. Patient was also found to have mildly elevated troponins at 0.042, 0.043, and 0.038. Patient reports this morning his breathing is somewhat improved, however he is on supplemental oxygen by nasal cannula. Patient reports a minimal cough today. He currently denies fever, and chest pain. Patient does have bilateral lower leg extremity swelling, however this is chronic.] ROS: [No fever, chills, or rigors] [Mild cough, mildly productive, no expectoration] [no nausea, vomiting, reports intermittent diarrhea] [no hematuria, dysuria] [no musculoskelatal complaints] [no strokes or seizures] [no skin lesions] EXAMINATION: GENERAL: Well-appearing, well-nourished and in no acute distress. NECK: Supple without JVD or thyromegaly. HEART: Regular rate and irregular rhythm without murmurs, rubs or gallops. S1 and S2 heard. EXTREMITIES: Normal range of motion, mild bilateral lower extremity edema. No clubbing or cyanosis. Peripheral pulses intact and strong. REVIEW OF LABS, ECG & MEDICAL DATA: LABS: White count 1.2, hemoglobin 12.8, platelets 30, PT 12.2, INR 1.2, d-dimer 3.9, sodium 126, potassium 3.6, BUN 48, creatinine 2.40, calcium 7.6, magnesium 1.9, serial troponins-0.042, 0.043, 0.038. EKG: Atrial fibrillation, rate controlled. Patient demonstrates atrial fibrillation on telemetry, heart rate 98. IMAGING: Chest x-ray dated 01/31/2021-no active cardiopulmonary disease. No change. VITALS: Temp 97.3, pulse 91, blood pressure 101/55, O2 sat 95% on 3 L by nasal cannula IMPRESSION/PLAN: 1. A. fib with RVR-do not recommend heparin at this time due to patient's significantly low platelet count. We'll restart patient's Xarelto at 15 mg once daily. The patient has been seen and evaluated. Plan of care has been reviewed and agreed upon by Dr. Thorpe. Thank you for the consult and allowing us to participate in the care of this patient. Past Medical History Past Medical History: Atrial Fibrillation, Asthma, Heart Failure, COPD, Deep Vein Thrombosis (DVT), GERD/Reflux, Hypertension, Liver Disease, Osteoarthritis (OA), Pneumonia, Renal Disease Additional Past Medical History / Comment(s): Other hx: Pt states L wrist pain now goes all the way up L arm, recent AAA surgery, chronic chf, bronchitis, liver cirrhosis, hepatitis C treated 3 times, CKD stage III, anemia, thrombocytopenia, pancytopenia-pt recently saw Dr. Matthews, pt states recently told he has diabetes, numbness R lower leg, chronic gout bilateral feet, UTI, chronic low back pain, cervical pain History of Any Multi-Drug Resistant Organisms: None Reported Past Surgical History: Heart Catheterization With Stent, Hernia Repair, Orthopedic Surgery Additional Past Surgical History / Comment(s): Percutaneous endovascjlar abdominal aortic anuerysm repair, EGD, colonoscopies, bilateral cataract removals/lens implants, R shoulder rotator cuff repair, umbilical hernia repair. Past Anesthesia/Blood Transfusion Reactions: Motion Sickness Additional Past Anesthesia/Blood Transfusion Reaction / Comment(s): Pt has r eceived blood without reaction. Date of Last Stent Placement:: 01/2020 Past Psychological History: Depression Smoking Status: Former smoker Past Alcohol Use History: Occasional Past Drug Use History: Marijuana - Past Family History Mother Family Medical History: Cancer Additional Family Medical History / Comment(s): Mother of liver cancer. Father Family Medical History: Myocardial Infarction ([place]) Additional Family Medical History / Comment(s): Father of a [place] at the age of 48yrs. Medications and Allergies Home Medications Medication Instructions Recorded Confirmed Type Nitroglycerin Sl Tabs [Nitrostat] 0.4 mg PO Q5M PRN 08/31/19 01/31/21 History Cyanocobalamin [Vitamin B-12] 1,000 mcg PO DAILY #30 tab 11/23/19 01/31/21 Rx carvediloL [Coreg] 6.25 mg PO BID-W/MEALS #60 tab 11/23/19 01/31/21 Rx Folic Acid 1 mg PO DAILY 01/09/20 01/31/21 History Spironolactone [Aldactone] 25 mg PO BID@0800,1200 01/09/20 01/31/21 History Thiamine [Vitamin B-1] 50 mg PO DAILY@1200 01/09/20 01/31/21 History Allopurinol [Zyloprim] 100 mg PO HS 07/23/20 01/31/21 History Rivaroxaban [Xarelto] 10 mg PO HS 07/23/20 01/31/21 History Albuterol Inhaler [Ventolin Hfa 1 puff INHALATION RT-Q6H 01/31/21 01/31/21 History Inhaler] Cholecalciferol [Vitamin D3 (25 50 mcg PO DAILY 01/31/21 01/31/21 History Mcg = 1000 Iu)] Insulin Glargine,Hum.rec.anlog 30 units SQ HS 01/31/21 01/31/21 History [[place] Solostar] Ipratropium-Albuterol Nebulize 3 ml INHALATION RT-QID PRN 01/31/21 01/31/21 History [Duoneb 0.5 mg-3 mg/3 ml Soln] Torsemide [Demadex] 20 mg PO DAILY@1200 01/31/21 01/31/21 History Torsemide [Demadex] 40 mg PO DAILY 01/31/21 01/31/21 History Allergies Allergy/AdvReac Type Severity Reaction Status Date / Time codeine Allergy Rash/Hives Verified 01/31/21 23:05 ibuprofen Allergy Unknown Verified 01/31/21 23:05 apixaban [From Eliquis] AdvReac Rash/Hives Verified 01/31/21 23:05 dabigatran etexilate AdvReac Rash/Hives Verified 01/31/21 23:05 [From Pradaxa] midodrine AdvReac Rash/Hives Verified 01/31/21 23:05 Physical Exam Vitals: Vital Signs Temp Pulse Resp BP Pulse Ox 02/01/21 11:00 22 101/55 95 02/01/21 10:00 22 103/65 94 L 02/01/21 09:49 22 02/01/21 09:10 91 20 109/71 93 L 02/01/21 08:20 87 20 107/76 93 L 02/01/21 07:40 86 20 90/60 97 02/01/21 04:43 98 20 90/67 95 02/01/21 03:36 89 18 92/67 94 L 02/01/21 02:00 96 18 105/65 95 02/01/21 00:11 97.3 F L 101 H 18 83/60 94 L 01/31/21 20:35 106 H 18 100/73 95 01/31/21 20:21 99.2 F 96 28 H 94/69 93 L Intake and Output 01/31/21 02/01/21 02/01/21 22:59 06:59 14:59 Other: Weight 145.15 kg Results 02/01/21 02:51 02/01/21 02:51 Cardiac Enzymes 01/31/21 01/31/21 02/01/21 Range/Units 21:00 21:00 00:18 AST 76 H (17-59) U/L Lactate Dehydrogenase (313-618) U/L Troponin I 0.042 H* 0.043 H* (0.000-0.034) ng/mL 02/01/21 02/01/21 02/01/21 Range/Units 02:51 02:51 09:17 AST 55 (17-59) U/L Lactate Dehydrogenase 778 H (313-618) U/L Troponin I 0.038 H* (0.000-0.034) ng/mL Coagulation 01/31/21 02/01/21 Range/Units 21:00 09:17 PT 11.8 12.2 H (9.0-12.0) sec APTT 35.7 H (22.0-30.0) sec CBC 01/31/21 02/01/21 Range/Units 21:00 02:51 WBC 2.8 L 1.2 L* (3.8-10.6) k/uL RBC 3.82 L 3.55 L (4.30-5.90) m/uL Hgb 14.0 12.8 L (13.0-17.5) gm/dL Hct 38.7 L 36.8 L (39.0-53.0) % Plt Count 43 L 30 L (150-450) k/uL Comprehensive Metabolic Panel 01/31/21 02/01/21 Range/Units 21:00 02:51 Sodium 125 L 126 L (137-145) mmol/L Potassium 4.2 3.6 (3.5-5.1) mmol/L Chloride 98 98 (98-107) mmol/L Carbon Dioxide 19 L 17 L (22-30) mmol/L BUN 46 H 48 H (9-20) mg/dL Creatinine 2.08 H 2.40 H (0.66-1.25) mg/dL Glucose 122 H 178 H (74-99) mg/dL Calcium 7.8 L 7.6 L (8.4-10.2) mg/dL AST 76 H 55 (17-59) U/L ALT 31 29 (4-49) U/L Alkaline Phosphatase 95 101 (38-126) U/L Total Protein 6.5 5.9 L (6.3-8.2) g/dL Albumin 2.9 L 2.7 L (3.5-5.0) g/dL Current Medications Generic Name Dose Route Start Last Admin Trade Name Freq PRN Reason Stop Dose Admin Acetaminophen 650 mg 01/31/21 23:24 Acetaminophen Tab 325 Mg Tab PO Q6HR PRN Mild Pain or Fever > 100.5 Albuterol Sulfate 1 puff 02/01/21 02:00 02/01/21 03:14 Albuterol Hfa Inhaler INHALATION 1 puff RT-Q6H CODI Administration Allopurinol 100 mg 02/01/21 21:00 Allopurinol 100 Mg Tab PO HS CODI Ascorbic Acid 1,000 mg 02/01/21 09:00 02/01/21 09:49 Ascorbic Acid 500 Mg Tab PO 1,000 mg DAILY CODI Administration Cholecalciferol 125 mcg 02/01/21 09:00 02/01/21 09:48 Cholecalciferol 125 Mcg (5000 Iu) Tablet PO 125 mcg DAILY CODI Administration Cyanocobalamin 1,000 mcg 02/01/21 09:00 02/01/21 09:48 Cyanocobalamin 500 Mcg Tab PO 1,000 mcg DAILY CODI Administration Dexamethasone 6 mg 02/01/21 10:45 Dexamethasone 2 Mg Tab PO DAILY CODI Folic Acid 1 mg 02/01/21 09:00 02/01/21 09:49 Folic Acid 1 Mg Tab PO 1 mg DAILY CODI Administration Sodium Chloride 500 mls @ 20 mls/hr 01/31/21 23:45 02/01/21 00:10 Saline 0.9% IV 20 mls/hr .Q24H CODI Administration Sodium Chloride 1,000 mls @ 75 mls/hr 02/01/21 00:15 02/01/21 03:35 Saline 0.9% IV 02/01/21 18:16 75 mls/hr .[id number] CODI Administration Naloxone HCl 0.2 mg 01/31/21 23:24 Naloxone 0.4 Mg/Ml 1 Ml Vial IV Q2M PRN Opioid Reversal Pantoprazole Sodium 40 mg 02/01/21 10:15 Pantoprazole 40 Mg/10 Ml Vial IVP DAILY CODI Thiamine HCl 50 mg 02/01/21 12:00 Thiamine 100 Mg Tab PO DAILY@1200 CODI Zinc Sulfate 220 mg 02/01/21 09:00 02/01/21 09:48 Zinc Sulfate 220 Mg Cap PO 220 mg DAILY CODI Administration Intake and Output 01/31/21 02/01/21 02/01/21 22:59 06:59 14:59 Other: Weight 145.15 kg 02/01/21 02:51 02/01/21 02:51
[2021-02-01] MEDS: dexAMETHasone 2 MG TAB PO SCH (11:46)
--- NOTE | 2021-02-01 11:47 | US ---
EXAMINATION TYPE: US kidneys/renal and bladder DATE OF EXAM: 02/01/2021 COMPARISON: NONE CLINICAL HISTORY: [place]. EXAM MEASUREMENTS: Right Kidney: 8.6 x 5.5 x 5.2 cm Left Kidney: 10.1 x 5.4 x 4.4 cm Morbidly obese patient with Covid and severe shortness of breath. Technically difficult study. Right Kidney: measures small, No hydronephrosis or masses seen Left Kidney: No hydronephrosis or masses seen Bladder: wnl Incidental splenomegaly probably underestimated due to technical limitations. There is no evidence for hydronephrosis at this point in time. No nephrolithiasis is seen. No xander s are identified. The urinary bladder is anechoic. Bilateral ureteral jets are seen. IMPRESSION: 1. Slightly smaller right kidney otherwise unremarkable sonographic evaluation of the kidneys and uri nary bladder. 2. Apparent splenomegaly though due to technical limitation dedicated spleen ultrasound is recommende d.
[2021-02-01] MEDS: PANTOPRAZOLE 40 MG/10 ML VIAL IVP SCH (11:49)
[2021-02-01] MEDS: THIAMINE 100 MG TAB PO SCH (11:51)
--- NOTE | 2021-02-01 13:46 | P.CNPUL ---
History of Present Illness Consult date: 02/01/21 Requesting physician: Radha Das Reason for consult: dyspnea, hypoxemia, abnormal CXR/CT Chief complaint: Shortness of breath 2 weeks History of present illness: This is a 70-year-old male patient follows with Dr. Mena as his primary care provider. He has a history of chronic obstructive pulmonary disease, previous tobacco dependence, atrial fibrillation anticoagulation with Xarelto, ga stroesophageal reflux disease, hypertension pancytopenia, liver cirrhosis, occasional alcohol use, marijuana use. The patient presented here to the emergency room last evening with a two-week history of shortness of breath with worsening dyspnea on exertion. He's had a poor appetite. He has not been eating much the last several days. White count 1.2. Hemoglobin 12.8. Platelet count 30,000. INR 1.2. D-dimer 3.90. Sodium 126. Potassium 3.6. Creatinine 2.40. Glucose 178. Troponin 0.042, 0.043, 0.038. LDH 778. Pro-calcitonin 0.26. Current virus by PCR positive. X-ray revealed no acute pulmonary process. He is currently maintaining O2 saturations in the mid 90s on 3 L/m per nasal cannula. He is seen in consultation in the emergency room. He is awake and alert. He is dyspneic with minimal exertion. He is 95% O2 saturation currently. He's been afebrile. He's been initiated on Decadron, vitamin supplements, continued on his Xarelto. Review of Systems REVIEW OF SYSTEMS: CONSTITUTIONAL: Denies weakness, fatigue. Denies any recent significant weight loss or weight gain. EYES: Denies change in vision. EARS, NOSE, MOUTH, THROAT: Denies headaches, denies sore throat. CARDIOVASCULAR: Denies chest pain, palpitations or syncopal episodes. RESPIRATORY: Positive for shortness of breath, cough, congestion no hemoptysis. GASTROINTESTINAL: Positive for poor appetite, denies abdominal pain GENITOURINARY: Denies hematuria, denies infections. MUSKULOSKELETAL: Denies pain, denies swelling. INTEGUMENTARY: Denies rash, denies eczema. NEUROLOGICAL: Denies recent memory loss, no recent seizure activity. PSYCHIATRIC: Denies anxiety, denies depression. HEMATOLOGIC/LYMPHATIC: Denies anemia, denies enlarged lymph nodes. Past Medical History Past Medical History: Atrial Fibrillation, Asthma, Heart Failure, COPD, Deep Vein Thrombosis (DVT), GERD/Reflux, Hypertension, Liver Disease, Osteoarthritis (OA), Pneumonia, Renal Disease Additional Past Medical History / Comment(s): Other hx: Pt states L wrist pain now goes all the way up L arm, recent AAA surgery, chronic chf, bronchitis, liver cirrhosis, hepatitis C treated 3 times, CKD stage III, anemia, thrombocytopenia, pancytopenia-pt recently saw Dr. Matthews, pt states recently told he has diabetes, numbness R lower leg, chronic gout bilateral feet, UTI, chronic low back pain, cervical pain History of Any Multi-Drug Resistant Organisms: None Reported Past Surgical History: Heart Catheterization With Stent, Hernia Repair, Orthopedic Surgery Additional Past Surgical History / Comment(s): Percutaneous endovascjlar abdominal aortic anuerysm repair, EGD, colonoscopies, bilateral cataract removals/lens implants, R shoulder rotator cuff repair, umbilical hernia repair. Past Anesthesia/Blood Transfusion Reactions: Motion Sickness Additional Past Anesthesia/Blood Transfusion Reaction / Comment(s): Pt has received blood without reaction. Date of Last Stent Placement:: 01/2020 Past Psychological History: Depression Smoking Status: Former smoker Past Alcohol Use History: Occasional Past Drug Use History: Marijuana - Past Family History Mother Family Medical History: Cancer Additional Family Medical History / Comment(s): Mother of liver cancer. Father Family Medical History: Myocardial Infarction ([place]) Additional Family Medical History / Comment(s): Father of a [place] at the age of 48yrs. Medications and Allergies Home Medications Medication Instructions Recorded Confirmed Type Nitroglycerin Sl Tabs [Nitrostat] 0.4 mg PO Q5M PRN 08/31/19 01/31/21 History Cyanocobalamin [Vitamin B-12] 1,000 mcg PO DAILY #30 tab 11/23/19 01/31/21 Rx carvediloL [Coreg] 6.25 mg PO BID-W/MEALS #60 tab 11/23/19 01/31/21 Rx Folic Acid 1 mg PO DAILY 01/09/20 01/31/21 History Spironolactone [Aldactone] 25 mg PO BID@0800,1200 01/09/20 01/31/21 History Thiamine [Vitamin B-1] 50 mg PO DAILY@1200 01/09/20 01/31/21 History Allopurinol [Zyloprim] 100 mg PO HS 07/23/20 01/31/21 History Rivaroxaban [Xarelto] 10 mg PO HS 07/23/20 01/31/21 History Albuterol Inhaler [Ventolin Hfa 1 puff INHALATION RT-Q6H 01/31/21 01/31/21 History Inhaler] Cholecalciferol [Vitamin D3 (25 50 mcg PO DAILY 01/31/21 01/31/21 History Mcg = 1000 Iu)] Insulin Glargine,Hum.rec.anlog 30 units SQ HS 01/31/21 01/31/21 History [[place] Solostar] Ipratropium-Albuterol Nebulize 3 ml INHALATION RT-QID PRN 01/31/21 01/31/21 History [Duoneb 0.5 mg-3 mg/3 ml Soln] Torsemide [Demadex] 20 mg PO DAILY@1200 01/31/21 01/31/21 History Torsemide [Demadex] 40 mg PO DAILY 01/31/21 01/31/21 History Allergies Allergy/AdvReac Type Severity Reaction Status Date / Time codeine Allergy Rash/Hives Verified 01/31/21 23:05 ibuprofen Allergy Unknown Verified 01/31/21 23:05 apixaban [From Eliquis] AdvReac Rash/Hives Verified 01/31/21 23:05 dabigatran etexilate AdvReac Rash/Hives Verified 01/31/21 23:05 [From Pradaxa] midodrine AdvReac Rash/Hives Verified 01/31/21 23:05 Physical Exam Vitals: Vital Signs Temp Pulse Resp BP Pulse Ox 02/01/21 11:00 22 101/55 95 02/01/21 10:00 22 103/65 94 L 02/01/21 09:49 22 02/01/21 09:10 91 20 109/71 93 L 02/01/21 08:20 87 20 107/76 93 L 02/01/21 07:40 86 20 90/60 97 02/01/21 04:43 98 20 90/67 95 02/01/21 03:36 89 18 92/67 94 L 02/01/21 02:00 96 18 105/65 95 02/01/21 00:11 97.3 F L 101 H 18 83/60 94 L 11/27/21 20:35 106 H 18 100/73 95 01/31/21 20:21 99.2 F 96 28 H 94/69 93 L Intake and Output 01/31/21 02/01/21 02/01/21 22:59 06:59 14:59 Other: Weight 145.15 kg GENERAL EXAM: Alert, doesn't 70 year old gentleman, on 3 L nasal cannula, comfortable in no apparent distress. HEAD: Normocephalic. EYES: Normal reaction of pupils, equal size. NOSE: Clear with pink turbinates. THROAT: No erythema or exudates. NECK: No masses, no JVD. CHEST: No chest wall deformity. LUNGS: Equal air entry with no crackles, wheeze, rhonchi or dullness. Diminished. CVS: S1 and S2 normal with no audible murmur, regular rhythm. ABDOMEN: No hepatosplenomegaly, normal bowel sounds, no guarding or rigidity. SPINE: No scoliosis or deformity SKIN: No rashes CENTRAL NERVOUS SYSTEM: No focal deficits, tone is normal in all 4 extremities. EXTREMITIES: There is no peripheral edema. No clubbing, no cyanosis. Peripheral pulses are intact. Results - Laboratory Findings CBC and BMP: 02/01/21 02:51 02/01/21 02:51 PT/INR, D-dimer PT 12.2 sec (9.0-12.0) H 02/01/21 09:17 INR 1.2 (<1.2) H 02/01/21 09:17 D-Dimer 3.90 mg/L FEU (<0.60) H 02/01/21 02:51 Abnormal lab findings: Abnormal Labs 01/31/21 01/31/21 01/31/21 21:00 21:00 21:00 WBC 2.8 L RBC 3.82 L Hgb Hct 38.7 L MCV 101.2 H MCH 36.7 H Plt Count 43 L Neutrophils # Lymphocytes # 0.6 L PT INR APTT 35.7 H D-Dimer Sodium 125 L Carbon Dioxide 19 L BUN 46 H Creatinine 2.08 H Glucose 122 H Calcium 7.8 L Total Bilirubin 1.9 H AST 76 H Lactate Dehydrogenase Troponin I Total Protein Albumin 2.9 L Procalcitonin Coronavirus (PCR) 01/31/21 01/31/21 02/01/21 21:00 21:00 00:18 WBC RBC Hgb Hct MCV MCH Plt Count Neutrophils # Lymphocytes # PT INR APTT D-Dimer Sodium Carbon Dioxide BUN Creatinine Glucose Calcium Total Bilirubin AST Lactate Dehydrogenase Troponin I 0.042 H* 0.043 H* Total Protein Albumin Procalcitonin Coronavirus (PCR) Detected A 02/01/21 02/01/21 02/01/21 02:51 02:51 02:51 WBC 1.2 L* RBC 3.55 L Hgb 12.8 L Hct 36.8 L MCV 103.7 H MCH 36.2 H Plt Count 30 L Neutrophils # 0.8 L Lymphocytes # 0.3 L PT INR APTT D-Dimer 3.90 H Sodium Carbon Dioxide BUN Creatinine Glucose Calcium Total Bilirubin AST Lactate Dehydrogenase Troponin I 0.038 H* Total Protein Albumin Procalcitonin Coronavirus (PCR) 02/01/21 02/01/21 02/01/21 02:51 02:51 09:17 WBC RBC Hgb Hct MCV MCH Plt Count Neutrophils # Lymphocytes # PT 12.2 H INR 1.2 H APTT D-Dimer Sodium 126 L Carbon Dioxide 17 L BUN 48 H Creatinine 2.40 H Glucose 178 H Calcium 7.6 L Total Bilirubin 1.6 H AST Lactate Dehydrogenase Troponin I Total Protein 5.9 L Albumin 2.7 L Procalcitonin 0.26 H Coronavirus (PCR) 02/01/21 09:17 WBC RBC Hgb Hct MCV MCH Plt Count Neutrophils # Lymphocytes # PT INR APTT D-Dimer Sodium Carbon Dioxide BUN Creatinine Glucose Calcium Total Bilirubin AST Lactate Dehydrogenase 778 H Troponin I Total Protein Albumin Procalcitonin Coronavirus (PCR) - Diagnostic Findings Chest x-ray: image reviewed Assessment and Plan Assessment: 1 Generalized weakness fatigue and loss of appetite secondary to COVID-19 infection. Not vaccinated. Outside the window for Remdesivir. 2 Acute hypoxic respiratory failure secondary to acute COVID-19 infection. No significant airspace opacities noted on chest x-ray. Pro Calcitonin 0.26 3 Troponin leak 4 Hyponatremia 5 Acute kidney injury 6 Pancytopenia, known history of 7 Chronic atrial fibrillation, anticoagulated with Xarelto 8 Splenomegaly 9 Chronic obstructive pulmonary disease 10 History of chronic tobacco dependence In: The patient was seen and evaluated by Dr. Helton Chest x-ray and labs reviewed Continue Xarelto, Decadron, vitamin supplements Follow-up x-ray and labs in the a.m. We will continue to follow and make further recommendations based on his clinical status I, the cosigning physician, performed a history & physical examination of the patient. Lungs sounds are clear, diminished. Maintaining good O2 saturations in the 90s on 3 L/m per nasal cannula. I discussed the assessment and plan of care with my nurse practitioner, Kathy Marie. I attest to the above consultation as dictated by her. Time with Patient: Greater than 30
[2021-02-01] MEDS ORDERED: guaiFENesin-DM 100-10MG/5ML 10 ML CUP PO PRN (17:02)
[2021-02-01] MEDS: RIVAROXABAN 15 MG TAB PO SCH ×2 (17:21→22:25)
[2021-02-01 18:43] LABS: Appearance,Urine Clear (Clear); Bilirubin,Urine Negative (Negative); Blood,Urine Negative (Negative); Color,Urine Yellow; Glucose,Urine (UA) Negative (Negative); Ketones,Urine Negative (Negative); Leukocyte Esterase,Urine Negative (Negative); Nitrite,Urine Negative (Negative); Protein,Urine Negative (Negative); Specific Gravity,Urine 1.011 (1.001-1.035); Urobilinogen,Urine <2.0 mg/dL (<2.0)
[2021-02-01] MEDS ORDERED: RIVAROXABAN 10 MG TAB PO SCH (21:00)
[2021-02-01] MEDS: allopurinoL 100 MG TAB PO SCH (22:25)
[2021-02-02] MEDS: ALBUTEROL HFA INHALER INHALATION SCH ×4 (03:26→20:25)
[2021-02-02 07:24] LABS: Basophils % (A) 0 %; Eosinophils % (A) 0 %; HCT 38.4 % (39.0-53.0); HGB 13.4 gm/dL (13.0-17.5); Lymphocytes # (A) 0.4 k/uL (1.0-4.8); Lymphocytes % (A) 11 %; MCH 36.3 pg (25.0-35.0); MCHC 34.9 g/dL (31.0-37.0); MCV 103.8 fL (80.0-100.0); Macrocytosis Slight; Mean Platelet Volume 11.6; Monocytes # (A) 0.2 k/uL (0-1.0); Monocytes % (A) 7 %; Neutrophils # (A) 2.8 k/uL (1.3-7.7); Neutrophils % (A) 82 %; RDW 13.7 % (11.5-15.5); WBC 3.4 k/uL (3.8-10.6)
[2021-02-02 07:58] LABS: African American GFR (CKD) 35 (>60 ml/min/1.73 sqM); Anion Gap 10 mmol/L; Blood Urea Nitrogen 55 mg/dL (9-20); Carbon Dioxide 18 mmol/L (22-30); Chloride 105 mmol/L (98-107); Creatine Kinase 85 U/L (55-170); Glucose 181 mg/dL (74-99); Magnesium 2.4 mg/dL (1.6-2.3); Non-African American GFR(CKD) 30 (>60 ml/min/1.73 sqM); Potassium 3.8 mmol/L (3.5-5.1); Sodium 133 mmol/L (137-145)
[2021-02-02 07:59] LABS: INR 1.4 (<1.2); Prothrombin Time 13.8 sec (9.0-12.0)
--- NOTE | 2021-02-02 08:40 | P.CONS ---
History of Present Illness - Reason for Consult Consult date: 02/01/21 thrombocytopenia Requesting physician: Jose Byers - Chief Complaint covid - History of Present Illness Patient is a 70 year old male patient who follows with Dr. Matthews for chronic thrombocytopenia with the need of anti-coagulation. He presents to hospital and is currently being treated for COVID-Pneumonia. His platelet count is 30K. Xarelto is on hold. Past Medical History Past Medical History: Atrial Fibrillation, Asthma, Heart Failure, COPD, Deep Vein Thrombosis (DVT), GERD/Reflux, Hypertension, Liver Disease, Osteoarthritis (OA), Pneumonia, Renal Disease Additional Past Medical History / Comment(s): Other hx: Pt states L wrist pain now goes all the way up L arm, recent AAA surgery, chronic chf, bronchitis, liver cirrhosis, hepatitis C treated 3 times, CKD stage III, anemia, thrombocytopenia, pancytopenia-pt recently saw Dr. Matthews, pt states recently told he has diabetes, numbness R lower leg, chronic gout bilateral feet, UTI, chronic low back pain, cervical pain History of Any Multi-Drug Resistant Organisms: None Reported Past Surgical History: Heart Catheterization With Stent, Hernia Repair, Orthopedic Surgery Additional Past Surgical History / Comment(s): Percutaneous endovascjlar abdominal aortic anuerysm repair, EGD, colonoscopies, bilateral cataract removals/lens implants, R shoulder rotator cuff repair, umbilical hernia repair. Past Anesthesia/Blood Transfusion Reactions: Motion Sickness Additional Past Anesthesia/Blood Transfusion Reaction / Comm: Pt has received blood without reaction. Date of Last Stent Placement:: 01/2020 Past Psychological History: Depression Smoking Status: Former smoker Past Alcohol Use History: Occasional Past Drug Use History: Marijuana - Past Family History Mother Family Medical History: Cancer Additional Family Medical History / Comment(s): Mother of liver cancer. Father Family Medical History: Myocardial Infarction (CA) Additional Family Medical History / Comment(s): Father of a CA at the age of 48yrs. Medications and Allergies Home Medications Medication Instructions Recorded Confirmed Type Nitroglycerin Sl Tabs [Nitrostat] 0.4 mg PO Q5M PRN 08/31/19 01/31/21 History Cyanocobalamin [Vitamin B-12] 1,000 mcg PO DAILY #30 tab 11/23/19 01/31/21 Rx carvediloL [Coreg] 6.25 mg PO BID-W/MEALS #60 tab 11/23/19 01/31/21 Rx Folic Acid 1 mg PO DAILY 01/09/20 01/31/21 History Spironolactone [Aldactone] 25 mg PO BID@0800,1200 01/09/20 01/31/21 History Thiamine [Vitamin B-1] 50 mg PO DAILY@1200 01/09/20 01/31/21 History Allopurinol [Zyloprim] 100 mg PO HS 07/23/20 01/31/21 History Rivaroxaban [Xarelto] 10 mg PO HS 07/23/20 01/31/21 History Albuterol Inhaler [Ventolin Hfa 1 puff INHALATION RT-Q6H 01/31/21 01/31/21 History Inhaler] Cholecalciferol [Vitamin D3 (25 50 mcg PO DAILY 01/31/21 01/31/21 History Mcg = 1000 Iu)] Insulin Glargine,Hum.rec.anlog 30 units SQ HS 01/31/21 01/31/21 History [T[place] Solostar] Ipratropium-Albuterol Nebulize 3 ml INHALATION RT-QID PRN 01/31/21 01/31/21 History [Duoneb 0.5 mg-3 mg/3 ml Soln] Torsemide [Demadex] 20 mg PO DAILY@1200 01/31/21 01/31/21 History Torsemide [Demadex] 40 mg PO DAILY 01/31/21 01/31/21 History Allergies Allergy/AdvReac Type Severity Reaction Status Date / Time codeine Allergy Rash/Hives Verified 01/31/21 23:05 ibuprofen Allergy Unknown Verified 01/31/21 23:05 apixaban [From Eliquis] AdvReac Rash/Hives Verified 01/31/21 23:05 dabigatran etexilate AdvReac Rash/Hives Verified 01/31/21 23:05 [From Pradaxa] midodrine AdvReac Rash/Hives Verified 01/31/21 23:05 Physical Exam Vitals: Vital Signs Temp Pulse Resp BP Pulse Ox 02/01/21 07:40 86 20 90/60 97 02/01/21 04:43 98 20 90/67 95 02/01/21 03:36 89 18 92/67 94 L 02/01/21 02:00 96 18 105/65 95 02/01/21 00:11 97.3 F L 101 H 18 83/60 94 L 01/31/21 20:35 106 H 18 100/73 95 01/31/21 20:21 99.2 F 96 28 H 94/69 93 L Intake and Output 01/31/21 02/01/21 02/01/21 22:59 06:59 14:59 Other: Weight 145.15 kg Results CBC & Chem 7: 02/03/21 07:12 02/03/21 07:12 Labs: Abnormal Lab Results - Last 24 Hours (Table) 01/31/21 01/31/21 01/31/21 Range/Units 21:00 21:00 21:00 WBC 2.8 L (3.8-10.6) k/uL RBC 3.82 L (4.30-5.90) m/uL Hgb (13.0-17.5) gm/dL Hct 38.7 L (39.0-53.0) % MCV 101.2 H (80.0-100.0) fL MCH 36.7 H (25.0-35.0) pg Plt Count 43 L (150-450) k/uL Neutrophils # (1.3-7.7) k/uL Lymphocytes # 0.6 L (1.0-4.8) k/uL APTT 35.7 H (22.0-30.0) sec D-Dimer (<0.60) mg/L FEU Sodium 125 L (137-145) mmol/L Carbon Dioxide 19 L (22-30) mmol/L BUN 46 H (9-20) mg/dL Creatinine 2.08 H (0.66-1.25) mg/dL Glucose 122 H (74-99) mg/dL Calcium 7.8 L (8.4-10.2) mg/dL Total Bilirubin 1.9 H (0.2-1.3) mg/dL AST 76 H (17-59) U/L Troponin I (0.000-0.034) ng/mL Total Protein (6.3-8.2) g/dL Albumin 2.9 L (3.5-5.0) g/dL Coronavirus (PCR) (Not Detectd) 01/31/21 01/31/21 02/01/21 Range/Units 21:00 21:00 00:18 WBC (3.8-10.6) k/uL RBC (4.30-5.90) m/uL Hgb (13.0-17.5) gm/dL Hct (39.0-53.0) % MCV (80.0-100.0) fL MCH (25.0-35.0) pg Plt Count (150-450) k/uL Neutrophils # (1.3-7.7) k/uL Lymphocytes # (1.0-4.8) k/uL APTT (22.0-30.0) sec D-Dimer (<0.60) mg/L FEU Sodium (137-145) mmol/L Carbon Dioxide (22-30) mmol/L BUN (9-20) mg/dL Creatinine (0.66-1.25) mg/dL Glucose (74-99) mg/dL Calcium (8.4-10.2) mg/dL Total Bilirubin (0.2-1.3) mg/dL AST (17-59) U/L Troponin I 0.042 H* 0.043 H* (0.000-0.034) ng/mL Total Protein (6.3-8.2) g/dL Albumin (3.5-5.0) g/dL Coronavirus (PCR) Detected A (Not Detectd) 02/01/21 02/01/21 02/01/21 Range/Units 02:51 02:51 02:51 WBC 1.2 L* (3.8-10.6) k/uL RBC 3.55 L (4.30-5.90) m/uL Hgb 12.8 L (13.0-17.5) gm/dL Hct 36.8 L (39.0-53.0) % MCV 103.7 H (80.0-100.0) fL MCH 36.2 H (25.0-35.0) pg Plt Count 30 L (150-450) k/uL Neutrophils # 0.8 L (1.3-7.7) k/uL Lymphocytes # 0.3 L (1.0-4.8) k/uL APTT (22.0-30.0) sec D-Dimer 3.90 H (<0.60) mg/L FEU Sodium (137-145) mmol/L Carbon Dioxide (22-30) mmol/L BUN (9-20) mg/dL Creatinine (0.66-1.25) mg/dL Glucose (74-99) mg/dL Calcium (8.4-10.2) mg/dL Total Bilirubin (0.2-1.3) mg/dL AST (17-59) U/L Troponin I 0.038 H* (0.000-0.034) ng/mL Total Protein (6.3-8.2) g/dL Albumin (3.5-5.0) g/dL Coronavirus (PCR) (Not Detectd) 02/01/21 Range/Units 02:51 WBC (3.8-10.6) k/uL RBC (4.30-5.90) m/uL Hgb (13.0-17.5) gm/dL Hct (39.0-53.0) % MCV (80.0-100.0) fL MCH (25.0-35.0) pg Plt Count (150-450) k/uL Neutrophils # (1.3-7.7) k/uL Lymphocytes # (1.0-4.8) k/uL APTT (22.0-30.0) sec D-Dimer (<0.60) mg/L FEU Sodium 126 L (137-145) mmol/L Carbon Dioxide 17 L (22-30) mmol/L BUN 48 H (9-20) mg/dL Creatinine 2.40 H (0.66-1.25) mg/dL Glucose 178 H (74-99) mg/dL Calcium 7.6 L (8.4-10.2) mg/dL Total Bilirubin 1.6 H (0.2-1.3) mg/dL AST (17-59) U/L Troponin I (0.000-0.034) ng/mL Total Protein 5.9 L (6.3-8.2) g/dL Albumin 2.7 L (3.5-5.0) g/dL Coronavirus (PCR) (Not Detectd) Assessment and Plan (1) COVID-19 Current Visit: Yes Status: Acute Code(s): U07.1 - COVID-19 SNOMED Code(s): 957971740 (2) Liver disease Current Visit: No Status: Acute Code(s): K76.9 - LIVER DISEASE, UNSPECIFIED SNOMED Code(s): 388616305 (3) Thrombocytopenia Current Visit: No Status: Acute Code(s): D69.6 - THROMBOCYTOPENIA, UNSPECIFIED SNOMED Code(s): 555247791 Plan: Hold Anticoagulation with platelet less than 50K
[2021-02-02] MEDS: PANTOPRAZOLE 40 MG/10 ML VIAL IVP SCH (09:49)
[2021-02-02] MEDS: dexAMETHasone 2 MG TAB PO SCH (09:49)
[2021-02-02] MEDS: ZINC SULFATE 220 MG CAP PO SCH (09:49)
[2021-02-02] MEDS: THIAMINE 100 MG TAB PO SCH (09:49)
[2021-02-02] MEDS: ASCORBIC ACID 500 MG TAB PO SCH (09:50)
[2021-02-02] MEDS: FOLIC ACID 1 MG TAB PO SCH (09:50)
[2021-02-02] MEDS: CYANOCOBALAMIN 500 MCG TAB PO SCH (09:50)
[2021-02-02] MEDS: SODIUM CHLORIDE 0.9% 500 ML 500 ML IV SCH (09:51)
[2021-02-02] MEDS: CHOLECALCIFEROL 125 MCG (5000 IU) TABLET PO SCH (09:51)
--- NOTE | 2021-02-02 11:16 | P.PN ---
Subjective Progress Note Date: 02/02/21 This is a 70-year-old male patient follows with Dr. Mena as his primary care provider. He has a history of chronic obstructive pulmonary disease, previous tobacco dependence, atrial fibrillation anticoagulation with Xarelto, gastroesophageal reflux disease, hypertension pancytopenia, liver cirrhosis, occasional alcohol use, marijuana use. The patient presented here to the emergency room last evening with a two-week history of shortness of breath with worsening dyspnea on exertion. He's had a poor appetite. He has not been eating much the last several days. White count 1.2. Hemoglobin 12.8. Platelet count 30,000. INR 1.2. D-dimer 3.90. Sodium 126. Potassium 3.6. Creatinine 2.40. Glucose 178. Troponin 0.042, 0.043, 0.038. LDH 778. Pro-calcitonin 0.26. Current virus by PCR positive. X-ray revealed no acute pulmonary process. He is currently maintaining O2 saturations in the mid 90s on 3 L/m per nasal cannula. He is seen in consultation in the emergency room. He is awake and alert. He is dyspneic with minimal exertion. He is 95% O2 saturation currently. He's been afebrile. He's been initiated on Decadron, vitamin supplements, continued on his Xarelto. On today's evaluation of 02/02/2021, the patient is being seen for a follow-up. As noted, the patient has multiple medical problems and comorbidities. The patient has chronic hepatitis C and secondary liver cirrhosis with pancytopenia and splenomegaly. The patient also has chronic systolic heart failure with an ejection fraction of 40-45%, chronic atrial fibrillation, history of alcoholism, COPD and chronic stage III to for kidney disease. The patient is coming in for COVID-19 related symptoms including generalized weakness and hyponatremia and the patient also has been short of breath. Chest x-ray is not showing clear indication for pneumonia. The patient was started on Decadron. The patient was seen by nephrology. Diuretics were held and the patient was given gentle hydration and sodium levels being monitored. He remains on 3 L of oxygen by nasal cannula. The blood work from today shows improvement in the sodium level which is up to 133. The rest of the blood work shows a white cell count of 3.4 with a hemoglobin of 13.4, he had a platelet count of 30 and we are waiting for the follow-up counseling and the patient is on long-term anticoagulation with Xarelto which is currently still active on his list. The creatinine is improved and is down to 2.1. Serum bicarb is at 18. BUN is at 55. Objective - Vital Signs Vital signs: Vital Signs Temp 96.2 F L 02/02/21 04:00 Pulse 89 02/02/21 04:00 Resp 22 02/02/21 04:00 BP 129/75 02/02/21 04:00 Pulse Ox 93 L 02/02/21 10:06 Intake & Output 02/01/21 02/02/21 02/02/21 18:59 06:59 18:59 Intake Total 600 Balance 600 Weight 138 kg Intake: Oral 600 Other: Voiding Method Urinal # Voids 1 - Exam GENERAL EXAM: Alert, doesn't 70 year old gentleman, on 3 L nasal cannula, comfortable in no apparent distress. HEAD: Normocephalic. EYES: Normal reaction of pupils, equal size. NOSE: Clear with pink turbinates. THROAT: No erythema or exudates. NECK: No masses, no JVD. CHEST: No chest wall deformity. LUNGS: Equal air entry with no crackles, wheeze, rhonchi or dullness. Diminished. CVS: S1 and S2 normal with no audible murmur, regular rhythm. ABDOMEN: No hepatosplenomegaly, normal bowel sounds, no guarding or rigidity. SPINE: No scoliosis or deformity SKIN: No rashes CENTRAL NERVOUS SYSTEM: No focal deficits, tone is normal in all 4 extremities. EXTREMITIES: There is no peripheral edema. No clubbing, no cyanosis. Peripheral pulses are intact. - Labs CBC & Chem 7: 02/02/21 06:41 02/02/21 06:41 Labs: Abnormal Lab Results - Last 24 Hours (Table) 02/02/21 02/02/21 02/02/21 Range/Units 06:41 06:41 06:41 WBC 3.4 L (3.8-10.6) k/uL RBC 3.70 L (4.30-5.90) m/uL Hct 38.4 L (39.0-53.0) % MCV 103.8 H (80.0-100.0) fL MCH 36.3 H (25.0-35.0) pg Lymphocytes # 0.4 L (1.0-4.8) k/uL PT 13.8 H (9.0-12.0) sec INR 1.4 H (<1.2) Sodium 133 L (137-145) mmol/L Carbon Dioxide 18 L (22-30) mmol/L BUN 55 H (9-20) mg/dL Creatinine 2.13 H (0.66-1.25) mg/dL Glucose 181 H (74-99) mg/dL Calcium 8.0 L (8.4-10.2) mg/dL Magnesium 2.4 H (1.6-2.3) mg/dL Microbiology - Last 24 Hours (Table) 01/31/21 21:00 Blood Culture - Preliminary Blood No Growth after 24 hours 01/31/21 21:00 Blood Culture - Preliminary Blood No Growth after 24 hours Assessment and Plan Plan: 1 COVID-19 infection with secondary generalized weakness and fatigue along with a component of hyponatremia contributing to the patient's symptoms. Not vaccinated. Outside the window for Remdesivir. 2 Acute hypoxic respiratory failure secondary to acute COVID-19 infection. No significant airspace opacities noted on chest x-ray. Pro Calcitonin 0.26 3 chronic liver cirrhosis/ HCV 4 Hyponatremia, improved 5 chronic kidney disease stage 3-4 the creatinine is improved compared to yesterday 6 Pancytopenia, known history of, possibly component of chronic liver disease/cirrhosis as the patient has chronic leukopenia and has underlying splenomegaly 7 Chronic atrial fibrillation, anticoagulated with Xarelto 8 Splenomegaly 9 Chronic obstructive pulmonary disease 10 History of chronic tobacco dependence 11 non-anion gap metabolic acidosis 12 troponin leak 13 chronic systolic heart failure with ejection fraction 40-45% Plan Chest x-ray and labs reviewed Monitor the platelet count , the patient's chronic thrombocytopenia, and recommend holding Xarelto if there is further drop in the platelet count < 50 Decadron, vitamin supplements Follow-up x-ray and labs in the a.m. We will continue to follow and make further recommendations based on his clinical status
--- NOTE | 2021-02-02 12:15 | P.PN ---
Subjective Progress Note Date: 02/02/21 CHIEF COMPLAINT: Elevated troponin HISTORY OF PRESENT ILLNESS: This is a 70 year old male who is admitted to the hospital secondary to Covid. According to the patients nurse, he has had no complaints of chest pain or pressure. He does report SOB and has some lower extremity edema. Platelet count yesterday was 30. His Xarelto has been put on hold. Hematology is following. Patients creatinine today is 2.13, down from 2.40. His Demadex and Aldactone remain on hold. Nephrology is following. PHYSICAL EXAM: Thorough physical exam not completed secondary to limited evaluation/examination due to Covid19 ASSESSMENT: Covid 19 Chronic persistent atrial fibrillation, on Xarelto Chronic thrombocytopenia COPD Chronic liver disease Acute on chronic kidney disease PLAN: Monitor platelet count. Hematology recommends holding Xarelto if platelet count less than 50. Will DC Xarelto Resume home dose of Coreg Continue telemetry monitoring Diuretics per nephrology Further recommendations pending patient course Nurse practitioner note has been reviewed by physician. Signing provider agrees with the documented findings, assessment, and plan of care. Objective - Vital Signs Vital signs: Vital Signs Temp 96.2 F L 02/02/21 04:00 Pulse 89 02/02/21 04:00 Resp 22 02/02/21 04:00 BP 129/75 02/02/21 04:00 Pulse Ox 93 L 02/02/21 10:06 Intake & Output 02/01/21 02/02/21 02/02/21 18:59 06:59 18:59 Intake Total 600 Balance 600 Weight 138 kg Intake: Oral 600 Other: Voiding Method Urinal # Voids 1 - Labs CBC & Chem 7: 02/02/21 06:41 02/02/21 06:41 Labs: Abnormal Lab Results - Last 24 Hours (Table) 02/02/21 02/02/21 02/02/21 Range/Units 06:41 06:41 06:41 WBC 3.4 L (3.8-10.6) k/uL RBC 3.70 L (4.30-5.90) m/uL Hct 38.4 L (39.0-53.0) % MCV 103.8 H (80.0-100.0) fL MCH 36.3 H (25.0-35.0) pg Lymphocytes # 0.4 L (1.0-4.8) k/uL PT 13.8 H (9.0-12.0) sec INR 1.4 H (<1.2) Sodium 133 L (137-145) mmol/L Carbon Dioxide 18 L (22-30) mmol/L BUN 55 H (9-20) mg/dL Creatinine 2.13 H (0.66-1.25) mg/dL Glucose 181 H (74-99) mg/dL Calcium 8.0 L (8.4-10.2) mg/dL Magnesium 2.4 H (1.6-2.3) mg/dL Microbiology - Last 24 Hours (Table) 01/31/21 21:00 Blood Culture - Preliminary Blood No Growth after 24 hours 01/31/21 21:00 Blood Culture - Preliminary Blood No Growth after 24 hours
--- NOTE | 2021-02-02 12:44 | PN ---
PROGRESS NOTE Patient is seen for followup for acute kidney injury. He is being treated for COVID pneumonia. O2 requirements are about the same. Patient is maintained on 3 L nasal cannula. Serum creatinine has improved to 2.1 from 2.4 yesterday. This morning case is discussed with nursing staff. PHYSICAL EXAMINATION: Blood pressure is 129/75, heart rate 89 per minute, patient is afebrile. Patient is awake, comfortable. He is not in any acute distress. He denies any significant complaints. There is evidence of edema 1+ bilaterally in the lower extremities. LAB: Show sodium 133, potassium 3.8, chloride 105, CO2 is 18, BUN 55, creatinine 2.1, hemoglobin 13.4 g/dL. ASSESSMENT: 1. Acute kidney injury associated with underlying COVID pneumonia, currently improved slightly today. The patient is not on any IV fluids. He is encouraged to maintain good oral intake. He has had good urine output. 2. COVID-19 pneumonia. 3. Hypovolemic, hyponatremia, improved. 4. History of liver cirrhosis. 5. Metabolic acidosis associated with acute kidney injury. 6. Type 2 diabetes. PLAN: Continue to encourage increased oral intake. Continue off IV fluids. Repeat labs in a.m. MMODL / IJN: [id number] /
[2021-02-02 14:43] LABS: Platelet Count 40 k/uL (150-450)
[2021-02-02] MEDS: carvediloL 6.25 MG TAB PO SCH ×2 (16:31)
[2021-02-02] MEDS: allopurinoL 100 MG TAB PO SCH (19:59)
--- NOTE | 2021-02-02 20:26 | P.PN ---
Subjective Progress Note Date: 02/02/21 Principal diagnosis: covid, cytopenias He is short of breath during dicussion, he also complains of some open sores on inner thighs. His blood counts did not result platelets will await this result today. At this time continue to hold anticoagulation Objective - Vital Signs Vital signs: Vital Signs Temp 96.2 F L 02/02/21 04:00 Pulse 89 02/02/21 04:00 Resp 22 02/02/21 04:00 BP 129/75 02/02/21 04:00 Pulse Ox 93 L 02/02/21 10:06 Intake & Output 02/01/21 02/02/21 02/02/21 18:59 06:59 18:59 Intake Total 600 Output Total 350 Balance 250 Weight 138 kg Intake: Oral 600 Output: Urine 350 Other: Voiding Method Urinal # Voids 1 - Exam mild distress obese mild increase effort heart: tachy Ext edema Vesicular rimmed lesions inner thighs - Labs CBC & Chem 7: 02/02/21 06:41 02/02/21 06:41 Labs: Abnormal Lab Results - Last 24 Hours (Table) 02/02/21 02/02/21 02/02/21 Range/Units 06:41 06:41 06:41 WBC 3.4 L (3.8-10.6) k/uL RBC 3.70 L (4.30-5.90) m/uL Hct 38.4 L (39.0-53.0) % MCV 103.8 H (80.0-100.0) fL MCH 36.3 H (25.0-35.0) pg Lymphocytes # 0.4 L (1.0-4.8) k/uL PT 13.8 H (9.0-12.0) sec INR 1.4 H (<1.2) Sodium 133 L (137-145) mmol/L Carbon Dioxide 18 L (22-30) mmol/L BUN 55 H (9-20) mg/dL Creatinine 2.13 H (0.66-1.25) mg/dL Glucose 181 H (74-99) mg/dL Calcium 8.0 L (8.4-10.2) mg/dL Magnesium 2.4 H (1.6-2.3) mg/dL Microbiology - Last 24 Hours (Table) 01/31/21 21:00 Blood Culture - Preliminary Blood No Growth after 24 hours 01/31/21 21:00 Blood Culture - Preliminary Blood No Growth after 24 hours Assessment and Plan (1) COVID-19 Current Visit: Yes Status: Acute Code(s): U07.1 - COVID-19 SNOMED Code(s): 117762811 (2) Liver disease Current Visit: No Status: Acute Code(s): K76.9 - LIVER DISEASE, UNSPECIFIED SNOMED Code(s): 195995258 (3) Thrombocytopenia Current Visit: No Status: Acute Code(s): D69.6 - THROMBOCYTOPENIA, UNSPECIFIED SNOMED Code(s): 188508682 Plan: Hold Anticoagulation with platelet less than 50K Acyclovir and barrier cream for inner thigh lesions Continue to monitor daily CBC and Transfuse platelets if signs of bleeding <40K or platelets less than 15K Worsening pancytopenia secondary to active inflammation/infectious process on his chronic pancytopenia due to underlying liver/ETOH If ANC drops below 0.8 may add temporary growth factor for additional immune support Physician Attest: I have completed the full history and physical and agree with above dictation, dictated as a scribe
[2021-02-03] MEDS: SODIUM CHLORIDE 0.9% 500 ML 500 ML IV SCH (03:57)
--- NOTE | 2021-02-03 05:41 | P.PN ---
Subjective This is a pleasant 70 years old male with past medical history of Atrial Fibrillation on xarelto, Asthma, Heart Failure, COPD, Deep Vein Thrombosis , GERD, Hypertension, Osteoarthritis, s/p recent AAA surgery, liver cirrhosis, hepatitis C treated 3 times, CKD stage III, anemia, thrombocytopenia, pancytopenia-pt recently saw Dr. Matthews, pt states recently told he has diabetes, numbness R lower leg, chronic gout bilateral feet, chronic low back pain, cervical pain Heart Catheterization With Stent. He is a patient of Dr. Mena. His social services aide is Dr. Gooden, data solutions architect Dr. Post and GI Dr. Palomares whom he have not been seen for more than a year. Daughter at bedside Patient presents because of worsening dyspnea for the last 2 weeks that more severe over the last few days associated with dry hacking cough. With on and off central lower anterior chest pain, nonradiating felt like sharp last between 10-30 minutes before it recurs again. Currently his with no chest pain while talking to him. Also he has diarrhea and watery twice per day but no abdominal pain or vomiting. He denies smoking, alcohol or illicit drugs. On admission patient has been afebrile, blood pressure on the low side currently is 90/60. Patient is saturating 95% and a 3 L oxygen via nasal cannula, at room air was 93% CBC showing pancytopenia with WBC 1.2, hemoglobin 12.8 and platelet count 30. INR is 1.1, d-dimer elevated at 3.9. Sodium was low at 125-126, baseline sodium 132-135 Elevated creatinine 2.0 and 2.4 compared to baseline of 1.5-1.8 Elevated troponin 0.04 and 0.03 Liver enzymes elevated. D-dimer is elevated at 3.9 ProBNP is normal at 359. Coronavirus is detected EKG showing atrial fibrillation with a rate of 93 and QTC 437. Chest x-ray: No acute cardiopulmonary process per Patient does not receive aspirin or blood thinners in the emergency room 02/02/2021 Patient sitting up in bed today, less respiratory distress, more comfortable looking. However patient is still tachypneic. He remains on 3 L oxygen via nasal cannula WC improved up to 3.4 and platelet count increased up to 40 out is still recommended to keep holding Xarelto per hematology team. Sodium improved to 133. Creatinine improved since slightly 2.4 down to 2.1. TSH is normal at 0.5. Patient recommended to keep him off IV fluids and to continue encouraging oral hydration. Continue with dexamethasone, vitamin C, vitamin D and zinc. Resume Coreg Objective - Vital Signs Vital signs: Vital Signs Temp 96.2 F L 02/02/21 04:00 Pulse 89 02/02/21 04:00 Resp 22 02/02/21 04:00 BP 129/75 02/02/21 04:00 Pulse Ox 93 L 02/02/21 04:00 Intake & Output 02/01/21 02/02/21 02/02/21 18:59 06:59 18:59 Intake Total 600 Balance 600 Weight 138 kg Intake: Oral 600 Other: Voiding Method Urinal # Voids 1 - Exam GENERAL: The patient is alert and oriented x3, not in any acute distress. Well developed, well nourished. HEENT: Pupils are round and equally reacting to light. EOMI. No scleral icterus. No conjunctival pallor. Normocephalic, atraumatic. No pharyngeal erythema. No thyromegaly. CARDIOVASCULAR: S1 and S2 present. No murmurs, rubs, or gallops. -PULMONARY: Chest is clear to auscultation, no wheezing or crackles. Mild prolongation of expiratory phase. Patient is tachypneic. ABDOMEN: Soft, nontender, nondistended, normoactive bowel sounds. No palpable organomegaly. MUSCULOSKELETAL: No joint swelling or deformity. EXTREMITIES: No cyanosis, clubbing, or pedal edema. NEUROLOGICAL: Gross neurological examination did not reveal any focal deficits. SKIN: No rashes. No petechiae - Labs CBC & Chem 7: 02/02/21 06:41 02/02/21 06:41 Labs: Abnormal Lab Results - Last 24 Hours (Table) 02/01/21 02/02/21 02/02/21 Range/Units 02:51 06:41 06:41 WBC (3.8-10.6) k/uL RBC (4.30-5.90) m/uL Hct (39.0-53.0) % MCV (80.0-100.0) fL MCH (25.0-35.0) pg Lymphocytes # (1.0-4.8) k/uL PT 13.8 H (9.0-12.0) sec INR 1.4 H (<1.2) Sodium 133 L (137-145) mmol/L Carbon Dioxide 18 L (22-30) mmol/L BUN 55 H (9-20) mg/dL Creatinine 2.13 H (0.66-1.25) mg/dL Glucose 181 H (74-99) mg/dL Calcium 8.0 L (8.4-10.2) mg/dL Magnesium 2.4 H (1.6-2.3) mg/dL Procalcitonin 0.26 H (0.02-0.09) ng/mL 02/02/21 Range/Units 06:41 WBC 3.4 L (3.8-10.6) k/uL RBC 3.70 L (4.30-5.90) m/uL Hct 38.4 L (39.0-53.0) % MCV 103.8 H (80.0-100.0) fL MCH 36.3 H (25.0-35.0) pg Lymphocytes # 0.4 L (1.0-4.8) k/uL PT (9.0-12.0) sec INR (<1.2) Sodium (137-145) mmol/L Carbon Dioxide (22-30) mmol/L BUN (9-20) mg/dL Creatinine (0.66-1.25) mg/dL Glucose (74-99) mg/dL Calcium (8.4-10.2) mg/dL Magnesium (1.6-2.3) mg/dL Procalcitonin (0.02-0.09) ng/mL Microbiology - Last 24 Hours (Table) 01/31/21 21:00 Blood Culture - Preliminary Blood No Growth after 24 hours 01/31/21 21:00 Blood Culture - Preliminary Blood No Growth after 24 hours Assessment and Plan Assessment: COVID-19 infection with no significant evidence of pneumonia on the chest x-ray Acute hypoxic respiratory failure Elevated troponin, associated with recurrent central chest pain rule out cardiac causes acute kidney disease on chronic kidney disease Chronic Atrial Fibrillation on xarelto Chronic heart failure Diarrhea Liver cirrhosis CKD, stage III Hyponatremia History of coronary artery disease status post stent History of pancytopenia History of asthma/COPD History of deep venous thrombosis History of GERD History of osteoarthritis History of recent AAA surgery History of hepatitis C treated 3 Chronic back pain and neck pain History of gout History of chronic numbness of the right lower leg 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 fib, covid infection and pancytopenia Continue with multiple vitamins, vitamin C, vitamin D and zinc Cardiology consult Consult hematology team for pancytopenia. Keep holding Xarelto Nephrology consult, discontinue IV fluids pulmonary consult . Continue with steroids and vitamins. Monitor oxygen level Labs and medication were reviewed.. Continue same treatment. Continue with symptomatic treatment. Resume home medication. Monitor lytes and vitals. DVT and GI prophylaxis. Further recommendations depends on the clinical course of the patient DVT prophylaxis no Anticoagulation in view of severe thrombocytopenia GI Prophylaxis: Ppi PT/OT: Pending Prognosis is guarded
[2021-02-03] MEDS: carvediloL 6.25 MG TAB PO SCH ×2 (06:31→18:30)
[2021-02-03 08:44] LABS: Basophils % (A) 0 %; Eosinophils % (A) 0 %; HCT 35.6 % (39.0-53.0); HGB 12.6 gm/dL (13.0-17.5); Lymphocytes # (A) 0.2 k/uL (1.0-4.8); Lymphocytes % (A) 7 %; MCH 36.8 pg (25.0-35.0); MCHC 35.4 g/dL (31.0-37.0); MCV 103.9 fL (80.0-100.0); Macrocytosis Slight; Mean Platelet Volume 11.5; Monocytes # (A) 0.2 k/uL (0-1.0); Monocytes % (A) 8 %; Neutrophils # (A) 2.3 k/uL (1.3-7.7); Neutrophils % (A) 84 %; RBC 3.43 m/uL (4.30-5.90); RDW 13.8 % (11.5-15.5); WBC 2.7 k/uL (3.8-10.6)
[2021-02-03 08:55] LABS: Albumin 2.4 g/dL (3.5-5.0); Calcium 7.8 mg/dL (8.4-10.2); Potassium 4.1 mmol/L (3.5-5.1); Total Bilirubin 1.1 mg/dL (0.2-1.3); Total Protein 5.5 g/dL (6.3-8.2)
[2021-02-03 09:00] LABS: Platelet Count 40 k/uL (150-450)
[2021-02-03] MEDS: ALBUTEROL HFA INHALER INHALATION SCH ×4 (09:19→20:07)
[2021-02-03] MEDS: dexAMETHasone 2 MG TAB PO SCH (09:46)
[2021-02-03] MEDS: ASCORBIC ACID 500 MG TAB PO SCH (09:46)
[2021-02-03] MEDS: PANTOPRAZOLE 40 MG/10 ML VIAL IVP SCH (09:46)
[2021-02-03] MEDS: CHOLECALCIFEROL 125 MCG (5000 IU) TABLET PO SCH (09:46)
[2021-02-03] MEDS: THIAMINE 100 MG TAB PO SCH (09:46)
[2021-02-03] MEDS: FOLIC ACID 1 MG TAB PO SCH (09:46)
[2021-02-03] MEDS: ZINC SULFATE 220 MG CAP PO SCH (09:46)
[2021-02-03] MEDS: CYANOCOBALAMIN 500 MCG TAB PO SCH (09:46)
--- NOTE | 2021-02-03 11:30 | P.PN ---
Subjective Progress Note Date: 02/03/21 This is a 70-year-old male patient follows with Dr. Mena as his primary care provider. He has a history of chronic obstructive pulmonary disease, previous tobacco dependence, atrial fibrillation anticoagulation with Xarelto, gastroesophageal reflux disease, hypertension pancytopenia, liver cirrhosis, occasional alcohol use, marijuana use. The patient presented here to the emergency room last evening with a two-week history of shortness of breath with worsening dyspnea on exertion. He's had a poor appetite. He has not been eating much the last several days. White count 1.2. Hemoglobin 12.8. Platelet count 30,000. INR 1.2. D-dimer 3.90. Sodium 126. Potassium 3.6. Creatinine 2.40. Glucose 178. Troponin 0.042, 0.043, 0.038. LDH 778. Pro-calcitonin 0.26. Current virus by PCR positive. X-ray revealed no acute pulmonary process. He is currently maintaining O2 saturations in the mid 90s on 3 L/m per nasal cannula. He is seen in consultation in the emergency room. He is awake and alert. He is dyspneic with minimal exertion. He is 95% O2 saturation currently. He's been afebrile. He's been initiated on Decadron, vitamin supplements, continued on his Xarelto. On today's evaluation of 02/02/2021, the patient is being seen for a follow-up. As noted, the patient has multiple medical problems and comorbidities. The patient has chronic hepatitis C and secondary liver cirrhosis with pancytopenia and splenomegaly. The patient also has chronic systolic heart failure with an ejection fraction of 40-45%, chronic atrial fibrillation, history of alcoholism, COPD and chronic stage III to for kidney disease. The patient is coming in for COVID-19 related symptoms including generalized weakness and hyponatremia and the patient also has been short of breath. Chest x-ray is not showing clear indication for pneumonia. The patient was started on Decadron. The patient was seen by nephrology. Diuretics were held and the patient was given gentle hydration and sodium levels being monitored. He remains on 3 L of oxygen by nasal cannula. The blood work from today shows improvement in the sodium level which is up to 133. The rest of the blood work shows a white cell count of 3.4 with a hemoglobin of 13.4, he had a platelet count of 30 and we are waiting for the follow-up counseling and the patient is on long-term anticoagulation with Xarelto which is currently still active on his list. The creatinine is improved and is down to 2.1. Serum bicarb is at 18. BUN is at 55. On 02/03/2021, the patient remains on 3 L of oxygen by nasal cannula. He is being seen today seen in follow-up. He is got multiple medical problems and comorbidities including liver cirrhosis and previous history of hepatitis C. He has also cardiomyopathy, chronic atrial fibrillation, COPD, chronic stage III kidney disease and alcoholism. For now, the patient is being treated for community related pneumonia. The patient is on Decadron. The blood work from today reveals a white cell count of 2.7 and the patient is chronically leukopenic. Platelet count isn't currently at 40. The creatinine is improving is currently down to 1.78 and a serum bicarbonate of 19 with a gap of 7 and the sodium level of 135. Stool for C. diff has been negative. TSH level was at 0.5. Patient has no specific complaints otherwise for now. The patient is resting comfortably in bed. It's possible that the patient can wean down on his FiO2. Tolerating diet. No nausea or vomiting. No signs of any bleeding. Objective - Vital Signs Vital signs: Vital Signs Temp 97.7 F 02/03/21 08:00 Pulse 100 02/03/21 08:00 Resp 23 02/03/21 08:00 BP 99/48 02/03/21 08:00 Pulse Ox 92 L 02/03/21 09:20 Intake & Output 02/02/21 02/03/21 02/03/21 18:59 06:59 18:59 Intake Total 1200 120 Output Total 350 700 Balance 850 -700 120 Weight 137 kg Intake: Oral 1200 120 Output: Urine 350 700 Other: Voiding Method Toilet Toilet Urinal Urinal - Exam GENERAL EXAM: Alert, doesn't 70 year old gentleman, on 3 L nasal cannula, comfortable in no apparent distress. HEAD: Normocephalic. EYES: Normal reaction of pupils, equal size. NOSE: Clear with pink turbinates. THROAT: No erythema or exudates. NECK: No masses, no JVD. CHEST: No chest wall deformity. LUNGS: Equal air entry with no crackles, wheeze, rhonchi or dullness. Diminished. CVS: S1 and S2 normal with no audible murmur, regular rhythm. ABDOMEN: No hepatosplenomegaly, normal bowel sounds, no guarding or rigidity. SPINE: No scoliosis or deformity SKIN: No rashes CENTRAL NERVOUS SYSTEM: No focal deficits, tone is normal in all 4 extremities. EXTREMITIES: There is no peripheral edema. No clubbing, no cyanosis. Peripheral pulses are intact. - Labs CBC & Chem 7: 02/03/21 07:12 02/03/21 07:12 Labs: Abnormal Lab Results - Last 24 Hours (Table) 02/02/21 02/03/21 02/03/21 Range/Units 06:41 07:12 07:12 WBC 2.7 L (3.8-10.6) k/uL RBC 3.43 L (4.30-5.90) m/uL Hgb 12.6 L (13.0-17.5) gm/dL Hct 35.6 L (39.0-53.0) % MCV 103.9 H (80.0-100.0) fL MCH 36.8 H (25.0-35.0) pg Plt Count 40 L 40 L (150-450) k/uL Lymphocytes # 0.2 L (1.0-4.8) k/uL Sodium 135 L (137-145) mmol/L Chloride 109 H (98-107) mmol/L Carbon Dioxide 19 L (22-30) mmol/L BUN 54 H (9-20) mg/dL Creatinine 1.78 H (0.66-1.25) mg/dL Glucose 188 H (74-99) mg/dL Calcium 7.8 L (8.4-10.2) mg/dL Total Protein 5.5 L (6.3-8.2) g/dL Albumin 2.4 L (3.5-5.0) g/dL Microbiology - Last 24 Hours (Table) 01/31/21 21:00 Blood Culture - Preliminary Blood No Growth after 48 hours 01/31/21 21:00 Blood Culture - Preliminary Blood No Growth after 48 hours Assessment and Plan Plan: 1 COVID-19 infection with secondary generalized weakness and fatigue along with a component of hyponatremia contributing to the patient's symptoms. Not vaccinated. Outside the window for Remdesivir. The patient is currently stable on 3 L of oxygen by nasal cannula. No interval worsening shortness of breath. Patient remains on Decadron. 2 Acute hypoxic respiratory failure secondary to acute COVID-19 infection. No significant airspace opacities noted on chest x-ray. Pro Calcitonin 0.26 3 chronic liver cirrhosis/ HCV 4 Hyponatremia, improved 5 chronic kidney disease stage 3-4 the creatinine is improved compared to yesterday, the acute kidney injury is also improving 6 Pancytopenia, known history of, possibly component of chronic liver disease /cirrhosis as the patient has chronic leukopenia and has underlying splenomegaly 7 Chronic atrial fibrillation, anticoagulated with Xarelto 8 Splenomegaly 9 Chronic obstructive pulmonary disease 10 History of chronic tobacco dependence 11 non-anion gap metabolic acidosis, serum bicarb is currently at 19 and the kidney function is also improving and the creatinine is down to 1.78. 12 troponin leak 13 chronic systolic heart failure with ejection fraction 40-45% Plan Awaiting the FiO2 as tolerated to maintain a saturation above 90% Continue the course of Decadron Monitor the platelet count , the patient's chronic thrombocytopenia, and recommend holding Xarelto if there is further drop in the platelet count < 50 Continue vitamin supplements Counts are stable for now We will continue to follow and make further recommendations based on his clinical status
--- NOTE | 2021-02-03 11:42 | P.PN ---
Subjective Progress Note Date: 02/03/21 CHIEF COMPLAINT: Elevated troponin HISTORY OF PRESENT ILLNESS: This is a 70 year old male who is admitted to the hospital secondary to Covid. According to the patients nurse, he has had no complaints of chest pain or pressure. He does report SOB and has some lower extremity edema. Platelet count yesterday was 30. His Xarelto has been put on hold. Hematology is following. Patients creatinine today is 2.13, down from 2.40. His Demadex and Aldactone remain on hold. Nephrology is following. 02/03/2021 Patient remains on the selective care unit. Patient's platelets are 40. His Xarelto remains on hold. Patient's creatinine today has slightly improved to 1.78, down from 2.1. His Demadex and Aldactone remain on hold. Nephrology is following. PHYSICAL EXAM: Thorough physical exam not completed secondary to limited evaluation/examination due to Covid19 ASSESSMENT: Covid 19 Chronic persistent atrial fibrillation, on Xarelto Chronic thrombocytopenia COPD Chronic liver disease Acute on chronic kidney disease PLAN: Monitor platelet count. Hematology recommends holding Xarelto if platelet count less than 50. Xarelto discontinued yesterday. Continue current cardiac medications Continue telemetry monitoring Diuretics per nephrology Further recommendations pending patient course Nurse practitioner note has been reviewed by physician. Signing provider agrees with the documented findings, assessment, and plan of care. Objective - Vital Signs Vital signs: Vital Signs Temp 97.7 F 02/03/21 08:00 Pulse 100 02/03/21 08:00 Resp 23 02/03/21 08:00 BP 99/48 02/03/21 08:00 Pulse Ox 92 L 02/03/21 09:20 Intake & Output 02/02/21 02/03/21 02/03/21 18:59 06:59 18:59 Intake Total 1200 120 Output Total 350 700 Balance 850 -700 120 Weight 137 kg Intake: Oral 1200 120 Output: Urine 350 700 Other: Voiding Method Toilet Toilet Urinal Urinal - Labs CBC & Chem 7: 02/03/21 07:12 02/03/21 07:12 Labs: Abnormal Lab Results - Last 24 Hours (Table) 02/02/21 02/03/21 02/03/21 Range/Units 06:41 07:12 07:12 WBC 2.7 L (3.8-10.6) k/uL RBC 3.43 L (4.30-5.90) m/uL Hgb 12.6 L (13.0-17.5) gm/dL Hct 35.6 L (39.0-53.0) % MCV 103.9 H (80.0-100.0) fL MCH 36.8 H (25.0-35.0) pg Plt Count 40 L 40 L (150-450) k/uL Lymphocytes # 0.2 L (1.0-4.8) k/uL Sodium 135 L (137-145) mmol/L Chloride 109 H (98-107) mmol/L Carbon Dioxide 19 L (22-30) mmol/L BUN 54 H (9-20) mg/dL Creatinine 1.78 H (0.66-1.25) mg/dL Glucose 188 H (74-99) mg/dL Calcium 7.8 L (8.4-10.2) mg/dL Total Protein 5.5 L (6.3-8.2) g/dL Albumin 2.4 L (3.5-5.0) g/dL Microbiology - Last 24 Hours (Table) 01/31/21 21:00 Blood Culture - Preliminary Blood No Growth after 48 hours 01/31/21 21:00 Blood Culture - Preliminary Blood No Growth after 48 hours
--- NOTE | 2021-02-03 11:59 | PN ---
PROGRESS NOTE Patient is seen for followup for acute kidney injury. He has underlying COVID pneumonia and is maintained on about 3 L nasal cannula with O2 saturations ranging from 91% to 94%. Renal function has been improving. Patient is currently not on any IV fluids or diuretics. On examination today, blood pressure 99/48, heart rate 100 per minute. He is afebrile. Examination of lower extremities shows no evidence of edema. Abdomen is soft, nontender. [employer] exam grossly intact. Labs show sodium 135, potassium 4.1, chloride 109, BUN 54, creatinine 1.78, hemoglobin 12.6 g/dL. ASSESSMENT: 1. Acute kidney injury, prerenal, currently improving. 2. COVID-19 pneumonia. 3. Hypovolemic hyponatremia, now resolved. 4. History of liver cirrhosis. 5. Metabolic acidosis associated with acute kidney injury, currently improved. PLAN: Continue to avoid nephrotoxic agents and encourage increased oral intake. MMODL / IJN: [id number] /
[2021-02-03] MEDS: allopurinoL 100 MG TAB PO SCH (20:53)
[2021-02-04] MEDS: SODIUM CHLORIDE 0.9% 500 ML 500 ML IV SCH (00:58)
[2021-02-04] MEDS: PANTOPRAZOLE 40 MG TABLET PO SCH (06:46)
[2021-02-04] MEDS: carvediloL 6.25 MG TAB PO SCH ×2 (06:46→17:19)
[2021-02-04] MEDS: ALBUTEROL HFA INHALER INHALATION SCH ×4 (07:47→20:12)
[2021-02-04] MEDS: ZINC SULFATE 220 MG CAP PO SCH (10:03)
[2021-02-04] MEDS: ASCORBIC ACID 500 MG TAB PO SCH (10:03)
[2021-02-04] MEDS: THIAMINE 100 MG TAB PO SCH (10:03)
[2021-02-04] MEDS: FOLIC ACID 1 MG TAB PO SCH (10:03)
[2021-02-04] MEDS: CHOLECALCIFEROL 125 MCG (5000 IU) TABLET PO SCH (10:03)
[2021-02-04] MEDS: CYANOCOBALAMIN 500 MCG TAB PO SCH (10:03)
[2021-02-04] MEDS: dexAMETHasone 2 MG TAB PO SCH (10:03)
[2021-02-04 10:13] LABS: Basophils % (A) 0 %; Eosinophils % (A) 0 %; Lymphocytes # (A) 0.3 k/uL (1.0-4.8); Lymphocytes % (A) 11 %; MCHC 33.4 g/dL (31.0-37.0); MCV 107.5 fL (80.0-100.0); Macrocytosis Moderate; Mean Platelet Volume 11.1; Monocytes # (A) 0.2 k/uL (0-1.0); Monocytes % (A) 7 %; Neutrophils % (A) 79 %; RBC 3.63 m/uL (4.30-5.90); RDW 13.9 % (11.5-15.5); WBC 2.5 k/uL (3.8-10.6)
[2021-02-04 10:33] LABS: Platelet Count 39 k/uL (150-450)
[2021-02-04 10:42] LABS: Calcium 8.1 mg/dL (8.4-10.2); Potassium 4.3 mmol/L (3.5-5.1)
--- NOTE | 2021-02-04 11:14 | P.PN ---
Subjective Progress Note Date: 02/04/21 This is a 70-year-old male patient follows with Dr. Mena as his primary care provider. He has a history of chronic obstructive pulmonary disease, previous tobacco dependence, atrial fibrillation anticoagulation with Xarelto, gastroesophageal reflux disease, hypertension pancytopenia, liver cirrhosis, occasional alcohol use, marijuana use. The patient presented here to the emergency room last evening with a two-week history of shortness of breath with worsening dyspnea on exertion. He's had a poor appetite. He has not been eating much the last several days. White count 1.2. Hemoglobin 12.8. Platelet count 30,000. INR 1.2. D-dimer 3.90. Sodium 126. Potassium 3.6. Creatinine 2.40. Glucose 178. Troponin 0.042, 0.043, 0.038. LDH 778. Pro-calcitonin 0.26. Current virus by PCR positive. X-ray revealed no acute pulmonary process. He is currently maintaining O2 saturations in the mid 90s on 3 L/m per nasal cannula. He is seen in consultation in the emergency room. He is awake and alert. He is dyspneic with minimal exertion. He is 95% O2 saturation currently. He's been afebrile. He's been initiated on Decadron, vitamin supplements, continued on his Xarelto. On today's evaluation of 02/02/2021, the patient is being seen for a follow-up. As noted, the patient has multiple medical problems and comorbidities. The patient has chronic hepatitis C and secondary liver cirrhosis with pancytopenia and splenomegaly. The patient also has chronic systolic heart failure with an ejection fraction of 40-45%, chronic atrial fibrillation, history of alcoholism, COPD and chronic stage III to for kidney disease. The patient is coming in for COVID-19 related symptoms including generalized weakness and hyponatremia and the patient also has been short of breath. Chest x-ray is not showing clear indication for pneumonia. The patient was started on Decadron. The patient was seen by nephrology. Diuretics were held and the patient was given gentle hydration and sodium levels being monitored. He remains on 3 L of oxygen by nasal cannula. The blood work from today shows improvement in the sodium level which is up to 133. The rest of the blood work shows a white cell count of 3.4 with a hemoglobin of 13.4, he had a platelet count of 30 and we are waiting for the follow-up counseling and the patient is on long-term anticoagulation with Xarelto which is currently still active on his list. The creatinine is improved and is down to 2.1. Serum bicarb is at 18. BUN is at 55. On 02/03/2021, the patient remains on 3 L of oxygen by nasal cannula. He is being seen today seen in follow-up. He is got multiple medical problems and comorbidities including liver cirrhosis and previous history of hepatitis C. He has also cardiomyopathy, chronic atrial fibrillation, COPD, chronic stage III kidney disease and alcoholism. For now, the patient is being treated for community related pneumonia. The patient is on Decadron. The blood work from today reveals a white cell count of 2.7 and the patient is chronically leukopenic. Platelet count isn't currently at 40. The creatinine is improving is currently down to 1.78 and a serum bicarbonate of 19 with a gap of 7 and the sodium level of 135. Stool for C. diff has been negative. TSH level was at 0.5. Patient has no specific complaints otherwise for now. The patient is resting comfortably in bed. It's possible that the patient can wean down on his FiO2. Tolerating diet. No nausea or vomiting. No signs of any bleeding. 02/04/2021, the patient reports that his breathing is stable. No interval worse sri in shortness of breath. He remains on 3 L. His condition is otherwise unchanged. He is a bit weak and debilitated. He has multiple medical problems and comorbidities. On his blood work today, the patient has a white cell count of 2.5 with a hemoglobin of 13 and a platelet count of 39. All of these values are stable compared to earlier numbers. Creatinine is down to 1.76 with a mean of 54 and a sodium level of 137. No other abnormal findings on his blood work. The patient remains on treatment and the patient is currently receiving Decadron 6 mg by mouth daily. He is off anticoagulation as his platelet counts are less than 50. No other significant interval change. Objective - Vital Signs Vital signs: Vital Signs Temp 97.2 F L 02/04/21 08:00 Pulse 82 02/04/21 08:00 Resp 20 02/04/21 08:00 BP 115/45 02/04/21 08:00 Pulse Ox 92 L 02/04/21 08:00 Intake & Output 02/03/21 02/04/21 02/04/21 18:59 06:59 18:59 Intake Total 1300 180 Output Total 550 275 Balance 750 -275 180 Weight 140 kg Intake: Oral 1300 180 Output: Urine 550 275 Other: Voiding Method Toilet Toilet Toilet Urinal Urinal Urinal - Exam GENERAL EXAM: Alert, doesn't 70 year old gentleman, on 3 L nasal cannula, comfortable in no apparent distress. HEAD: Normocephalic. EYES: Normal reaction of pupils, equal size. NOSE: Clear with pink turbinates. THROAT: No erythema or exudates. NECK: No masses, no JVD. CHEST: No chest wall deformity. LUNGS: Equal air entry with no crackles, wheeze, rhonchi or dullness. Diminished. CVS: S1 and S2 normal with no audible murmur, regular rhythm. ABDOMEN: No hepatosplenomegaly, normal bowel sounds, no guarding or rigidity. SPINE: No scoliosis or deformity SKIN: No rashes CENTRAL NERVOUS SYSTEM: No focal deficits, tone is normal in all 4 extremities. EXTREMITIES: There is no peripheral edema. No clubbing, no cyanosis. Peripheral pulses are intact. - Labs CBC & Chem 7: 02/04/21 08:29 02/04/21 08:29 Labs: Abnormal Lab Results - Last 24 Hours (Table) 02/04/21 02/04/21 Range/Units 08:29 08:29 WBC 2.5 L (3.8-10.6) k/uL RBC 3.63 L (4.30-5.90) m/uL MCV 107.5 H (80.0-100.0) fL MCH 36.0 H (25.0-35.0) pg Plt Count 39 L (150-450) k/uL Lymphocytes # 0.3 L (1.0-4.8) k/uL Chloride 108 H (98-107) mmol/L Carbon Dioxide 20 L (22-30) mmol/L BUN 54 H (9-20) mg/dL Creatinine 1.76 H (0.66-1.25) mg/dL Glucose 227 H (74-99) mg/dL Calcium 8.1 L (8.4-10.2) mg/dL Microbiology - Last 24 Hours (Table) 01/31/21 21:00 Blood Culture - Preliminary Blood No Growth after 72 hours 01/31/21 21:00 Blood Culture - Preliminary Blood No Growth after 72 hours Assessment and Plan Plan: 1 COVID-19 infection with secondary generalized weakness and fatigue along with a component of hyponatremia contributing to the patient's symptoms. Not vaccinated. Outside the window for Remdesivir. The patient is currently stable on 3 L of oxygen by nasal cannula. No interval worsening shortness of breath. Patient remains on Decadron. 2 Acute hypoxic respiratory failure secondary to acute COVID-19 infection. No significant airspace opacities noted on chest x-ray. Pro Calcitonin 0.26 3 chronic liver cirrhosis/ HCV 4 Hyponatremia, improved 5 chronic kidney disease stage 3-4 the creatinine is improved compared to yesterday, the acute kidney injury is also improving 6 Pancytopenia, known history of, possibly component of chronic liver disease/cirrhosis as the patient has chronic leukopenia and has underlying splenomegaly 7 Chronic atrial fibrillation, anticoagulated with Xarelto 8 Splenomegaly 9 Chronic obstructive pulmonary disease 10 History of chronic tobacco dependence 11 non-anion gap metabolic acidosis, serum bicarb is currently at 20 and the kidney function is also improving and the creatinine is down to 1.76 and the patient has a serum bicarb of 20 with anion gap of 9. 12 troponin leak 13 chronic systolic heart failure with ejection fraction 40-45% Plan Awaiting the FiO2 as tolerated to maintain a saturation above 90%, condition is stable on Decadron and the patient has no worsening in her oxygenation. Continue the course of Decadron Monitor the platelet count , the patient's chronic thrombocytopenia, and recommend holding Xarelto if there is further drop in the platelet count < 50 Continue vitamin supplements Counts are stable for now Involve physical therapy and consider inpatient rehabilitation specially above- mentioned comorbidities. We will continue to follow and make further recommendations based on his clinical status
--- NOTE | 2021-02-04 12:55 | P.PN ---
Subjective Progress Note Date: 02/04/21 CHIEF COMPLAINT: Elevated troponin HISTORY OF PRESENT ILLNESS: This is a 70 year old male who is admitted to the hospital secondary to Covid. According to the patients nurse, he has had no complaints of chest pain or pressure. He does report SOB and has some lower extremity edema. Platelet count yesterday was 30. His Xarelto has been put on hold. Hematology is following. Patients creatinine today is 2.13, down from 2.40. His Demadex and Aldactone remain on hold. Nephrology is following. 02/03/2021 Patient remains on the selective care unit. Patient's platelets are 40. His Xarelto remains on hold. Patient's creatinine today has slightly improved to 1.78, down from 2.1. His Demadex and Aldactone remain on hold. Nephrology is following. 02/04/2021 Patient remains on the selective care unit. Patient's platelets are 39. His Xarelto remains on hold. Patient's creatinine today is 1.76. His Demadex and Aldactone remain on hold. Nephrology is following. PHYSICAL EXAM: Thorough physical exam not completed secondary to limited evaluation/examination due to Covid19 ASSESSMENT: Covid 19 Chronic persistent atrial fibrillation, on Xarelto Chronic thrombocytopenia COPD Chronic liver disease Acute on chronic kidney disease PLAN: Monitor platelet count. Hematology recommends holding Xarelto if platelet count less than 50. Xarelto has been discontinued. Continue current cardiac medications Continue telemetry monitoring Diuretics per nephrology Further recommendations pending patient course Nurse practitioner note has been reviewed by physician. Signing provider agrees with the documented findings, assessment, and plan of care. Objective - Vital Signs Vital signs: Vital Signs Temp 97.2 F L 02/04/21 08:00 Pulse 82 02/04/21 08:00 Resp 20 02/04/21 08:00 BP 115/45 02/04/21 08:00 Pulse Ox 92 L 02/04/21 08:00 Intake & Output 02/03/21 02/04/21 02/04/21 18:59 06:59 18:59 Intake Total 1300 180 Output Total 550 275 Balance 750 -275 180 Weight 140 kg Intake: Oral 1300 180 Output: Urine 550 275 Other: Voiding Method Toilet Toilet Toilet Urinal Urinal Urinal - Labs CBC & Chem 7: 02/04/21 08:29 02/04/21 08:29 Labs: Abnormal Lab Results - Last 24 Hours (Table) 02/04/21 02/04/21 Range/Units 08:29 08:29 WBC 2.5 L (3.8-10.6) k/uL RBC 3.63 L (4.30-5.90) m/uL MCV 107.5 H (80.0-100.0) fL MCH 36.0 H (25.0-35.0) pg Plt Count 39 L (150-450) k/uL Lymphocytes # 0.3 L (1.0-4.8) k/uL Chloride 108 H (98-107) mmol/L Carbon Dioxide 20 L (22-30) mmol/L BUN 54 H (9-20) mg/dL Creatinine 1.76 H (0.66-1.25) mg/dL Glucose 227 H (74-99) mg/dL Calcium 8.1 L (8.4-10.2) mg/dL Microbiology - Last 24 Hours (Table) 01/31/21 21:00 Blood Culture - Preliminary Blood No Growth after 72 hours 01/31/21 21:00 Blood Culture - Preliminary Blood No Growth after 72 hours
--- NOTE | 2021-02-04 16:03 | PN ---
PROGRESS NOTE Patient is seen for followup for acute kidney injury. Patient's renal function continues to improve. He is being treated for COVID pneumonia. PHYSICAL EXAMINATION: On examination today, blood pressure is noted to be 115/45, heart rate 82 per minute. Patient is not examined. Case is discussed with nursing staff. I am in the room with the patient. He does not appear to have significant edema. CIGARETTE TESTER exam grossly intact. He is complaining of back pain. Lungs and heart are not examined. LAB: Show sodium 137, potassium 4.3, chloride 108, BUN 54, creatinine 1.76. ASSESSMENT: 1. Acute kidney injury, ATN, slightly improved. Renal function stable, creatinine 1.76, which is down from 2.4 at peak. 2. COVID-19 pneumonia. 3. Hypovolemic hyponatremia, now improved. 4. Metabolic acidosis associated with acute kidney injury, currently improved. 5. Generalized debility. PLAN: Encourage increased activity. Encourage increased oral intake. Continue to monitor urine output. MMODL / IJN: [id number] /
--- NOTE | 2021-02-04 16:27 | P.PN ---
Subjective Progress Note Date: 02/04/21 Principal diagnosis: covid, cytopenias Increased oxygen need today 4l Saturation around 93% per chart. He has some increased effort with breathing. Objective - Vital Signs Vital signs: Vital Signs Temp 97.2 F L 02/04/21 08:00 Pulse 82 02/04/21 08:00 Resp 20 02/04/21 08:00 BP 115/45 02/04/21 08:00 Pulse Ox 92 L 02/04/21 08:00 Intake & Output 02/03/21 02/04/21 02/04/21 18:59 06:59 18:59 Intake Total 1300 180 Output Total 550 275 Balance 750 -275 180 Weight 140 kg Intake: Oral 1300 180 Output: Urine 550 275 Other: Voiding Method Toilet Toilet Toilet Urinal Urinal Urinal - Exam mild distress obese mild increase effort heart: tachy Ext edema Vesicular rimmed lesions inner thighs - Labs CBC & Chem 7: 02/04/21 08:29 02/04/21 08:29 Labs: Abnormal Lab Results - Last 24 Hours (Table) 02/04/21 02/04/21 Range/Units 08:29 08:29 WBC 2.5 L (3.8-10.6) k/uL RBC 3.63 L (4.30-5.90) m/uL MCV 107.5 H (80.0-100.0) fL MCH 36.0 H (25.0-35.0) pg Plt Count 39 L (150-450) k/uL Lymphocytes # 0.3 L (1.0-4.8) k/uL Chloride 108 H (98-107) mmol/L Carbon Dioxide 20 L (22-30) mmol/L BUN 54 H (9-20) mg/dL Creatinine 1.76 H (0.66-1.25) mg/dL Glucose 227 H (74-99) mg/dL Calcium 8.1 L (8.4-10.2) mg/dL Microbiology - Last 24 Hours (Table) 01/31/21 21:00 Blood Culture - Preliminary Blood No Growth after 72 hours 01/31/21 21:00 Blood Culture - Preliminary Blood No Growth after 72 hours Assessment and Plan (1) COVID-19 Current Visit: Yes Status: Acute Code(s): U07.1 - COVID-19 SNOMED Code(s): 781505669 (2) Liver disease Current Visit: No Status: Acute Code(s): K76.9 - LIVER DISEASE, UNSPECIFIED SNOMED Code(s): 065653147 (3) Thrombocytopenia Current Visit: No Status: Acute Code(s): D69.6 - THROMBOCYTOPENIA, UNSPECIFIED SNOMED Code(s): 974837571 Plan: Hold Anticoagulation with platelet less than 50K Platelets are still less than 50K, no evidence of bleeding at this time. All other issues related to hospitalization per primary and pulmonary and ID teams
[2021-02-04] MEDS ORDERED: guaiFENesin SYRUP 100MG/5ML 200 MG/10 ML CUP PO PRN (17:34)
[2021-02-04] MEDS: allopurinoL 100 MG TAB PO SCH (20:24)
--- NOTE | 2021-02-04 23:21 | P.PN ---
Subjective Progress Note Date: 02/03/21 This is a pleasant 70 years old male with past medical history of Atrial Fibrillation on xarelto, Asthma, Heart Failure, COPD, Deep Vein Thrombosis , GERD, Hypertension, Osteoarthritis, s/p recent AAA surgery, liver cirrhosis, hepatitis C treated 3 times, CKD stage III, anemia, thrombocytopenia, pancyto penia-pt recently saw Dr. Matthews, pt states recently told he has diabetes, numbness R lower leg, chronic gout bilateral feet, chronic low back pain, cervical pain Heart Catheterization With Stent. He is a patient of Dr. Mena. His police clerk is Dr. Gooden, grants specialist Dr. Post and GI Dr. Palomares whom he have not been seen for more than a year. Daughter at bedside Patient presents because of worsening dyspnea for the last 2 weeks that more severe over the last few days associated with dry hacking cough. With on and off central lower anterior chest pain, nonradiating felt like sharp last between 10-30 minutes before it recurs again. Currently his with no chest pain while talking to him. Also he has diarrhea and watery twice per day but no abdominal pain or vomiting. He denies smoking, alcohol or illicit drugs. On admission patient has been afebrile, blood pressure on the low side currently is 90/60. Patient is saturating 95% and a 3 L oxygen via nasal cannula, at room air was 93% CBC showing pancytopenia with WBC 1.2, hemoglobin 12.8 and platelet count 30. INR is 1.1, d-dimer elevated at 3.9. Sodium was low at 125-126, baseline sodium 132-135 Elevated creatinine 2.0 and 2.4 compared to baseline of 1.5-1.8 Elevated troponin 0.04 and 0.03 Liver enzymes elevated. D-dimer is elevated at 3.9 ProBNP is normal at 359. Coronavirus is detected EKG showing atrial fibrillation with a rate of 93 and QTC 437. Chest x-ray: No acute cardiopulmonary process per Patient does not receive aspirin or blood thinners in the emergency room 02/02/2021 Patient sitting up in bed today, less respiratory distress, more comfortable looking. However patient is still tachypneic. He remains on 3 L oxygen via nasal cannula WC improved up to 3.4 and platelet count increased up to 40 out is still recommended to keep holding Xarelto per hematology team. Sodium improved to 133. Creatinine improved since slightly 2.4 down to 2.1. TSH is normal at 0.5. Patient recommended to keep him off IV fluids and to continue encouraging oral hydration. Continue with dexamethasone, vitamin C, vitamin D and zinc. Resume Coreg 02/03/2021 Due to the hospital due to acute COVID-19 infection Patient is currently resting in the bed. Currently requiring oxygen at 3 L via nasal cannula. Patient is also being treated for community-acquired pneumonia. Patient is being continued on dexamethasone. Laboratory showed WBC four 2.7 hemoglobin 12.6 and platelets 40 Sodium 135 potassium 4.1 chloride 109 bicarb is 19 BUN 54 and creatinine 1.78. Patient is Xarelto due to chronic atrial fibrillation. Xarelto is on hold due to thrombocytopenia. Cardiology and pulmonary is on board. Patient otherwise denied any complaints of chest pain or shortness of breath. No nausea vomiting abdominal pain. No diarrhea. No fever no chills. Current medications reviewed. Objective - Vital Signs Vital signs: Vital Signs Temp 98.1 F 02/03/21 12:00 Pulse 107 H 02/03/21 15:15 Resp 22 02/03/21 15:15 BP 111/63 02/03/21 15:15 Pulse Ox 92 L 02/03/21 15:15 Intake & Output 02/02/21 02/03/21 02/03/21 18:59 06:59 18:59 Intake Total 1200 940 Output Total 350 700 150 Balance 850 -700 790 Weight 137 kg Intake: Oral 1200 940 Output: Urine 350 700 150 Other: Voiding Method Toilet Toilet Urinal Urinal - Exam - Exam GENERAL: The patient is alert and oriented x3, not in any acute distress. Well developed, well nourished. HEENT: Pupils are round and equally reacting to light. EOMI. No scleral icterus. No conjunctival pallor. Normocephalic, atraumatic. No pharyngeal erythema. No thyromegaly. CARDIOVASCULAR: S1 and S2 present. No murmurs, rubs, or gallops. -PULMONARY: Chest is clear to auscultation, no wheezing or crackles. Mild prolongation of expiratory phase. Patient is tachypneic. ABDOMEN: Soft, nontender, nondistended, normoactive bowel sounds. No palpable organomegaly. MUSCULOSKELETAL: No joint swelling or deformity. EXTREMITIES: No cyanosis, clubbing, or pedal edema. NEUROLOGICAL: Gross neurological examination did not reveal any focal deficits. SKIN: No rashes. No petechiae - Labs CBC & Chem 7: 02/04/21 08:29 02/04/21 08:29 Labs: Abnormal Lab Results - Last 24 Hours (Table) 02/03/21 02/03/21 Range/Units 07:12 07:12 WBC 2.7 L (3.8-10.6) k/uL RBC 3.43 L (4.30-5.90) m/uL Hgb 12.6 L (13.0-17.5) gm/dL Hct 35.6 L (39.0-53.0) % MCV 103.9 H (80.0-100.0) fL MCH 36.8 H (25.0-35.0) pg Plt Count 40 L (150-450) k/uL Lymphocytes # 0.2 L (1.0-4.8) k/uL Sodium 135 L (137-145) mmol/L Chloride 109 H (98-107) mmol/L Carbon Dioxide 19 L (22-30) mmol/L BUN 54 H (9-20) mg/dL Creatinine 1.78 H (0.66-1.25) mg/dL Glucose 188 H (74-99) mg/dL Calcium 7.8 L (8.4-10.2) mg/dL Total Protein 5.5 L (6.3-8.2) g/dL Albumin 2.4 L (3.5-5.0) g/dL Microbiology - Last 24 Hours (Table) 01/31/21 21:00 Blood Culture - Preliminary Blood No Growth after 48 hours 01/31/21 21:00 Blood Culture - Preliminary Blood No Growth after 48 hours Assessment and Plan Assessment: COVID-19 infection with no significant evidence of pneumonia on the chest x-ray Acute hypoxic respiratory failure Elevated troponin, associated with recurrent central chest pain ruled out cardiac causes acute kidney disease on chronic kidney disease Chronic Atrial Fibrillation on xarelto Chronic heart failure Diarrhea Liver cirrhosis CKD, stage III Hyponatremia History of coronary artery disease status post stent History of pancytopenia History of asthma/COPD History of deep venous thrombosis History of GERD History of osteoarthritis History of recent AAA surgery History of hepatitis C treated 3 Chronic back pain and neck pain History of gout History of chronic numbness of the right lower leg 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 fib, covid infection and pancytopenia Continue with multiple vitamins, vitamin C, vitamin D and zinc Consulted hematology team for pancytopenia. Keep holding Xarelto Continue with steroids and vitamins. Monitor oxygen level Labs and medication were reviewed. Monitor lytes and vitals. DVT and GI prophylaxis. DVT prophylaxis no Anticoagulation in view of severe thrombocytopenia GI Prophylaxis: Ppi PT/OT: Pending Prognosis is guarded Time with Patient: Greater than 30
--- NOTE | 2021-02-04 23:25 | P.PN ---
Subjective Progress Note Date: 02/04/21 Principal diagnosis: Acuet COVID 19 This is a pleasant 70 years old male with past medical history of Atrial Fibrillation on xarelto, Asthma, Heart Failure, COPD, Deep Vein Thrombosis , GERD, Hypertension, Osteoarthritis, s/p recent AAA surgery, liver cirrhosis, hepatitis C treated 3 times, CKD stage III, anemia, thrombocytopenia, pancytopenia-pt recently saw Dr. Matthews, pt states recently told he has diabetes, numbness R lower leg, chronic gout bilateral feet, chronic low back pain, cervical pain Heart Catheterization With Stent. He is a patient of Dr. Mena. His card iologist is Dr. Gooden, pen ruler operator Dr. Post and GI Dr. Palomares whom he have not been seen for more than a year. Daughter at bedside Patient presents because of worsening dyspnea for the last 2 weeks that more severe over the last few days associated with dry hacking cough. With on and off central lower anterior chest pain, nonradiating felt like sharp last between 10-30 minutes before it recurs again. Currently his with no chest pain while talking to him. Also he has diarrhea and watery twice per day but no abdominal pain or vomiting. He denies smoking, alcohol or illicit drugs. On admission patient has been afebrile, blood pressure on the low side currently is 90/60. Patient is saturating 95% and a 3 L oxygen via nasal cannula, at room air was 93% CBC showing pancytopenia with WBC 1.2, hemoglobin 12.8 and platelet count 30. INR is 1.1, d-dimer elevated at 3.9. Sodium was low at 125-126, baseline sodium 132-135 Elevated creatinine 2.0 and 2.4 compared to baseline of 1.5-1.8 Elevated troponin 0.04 and 0.03 Liver enzymes elevated. D-dimer is elevated at 3.9 ProBNP is normal at 359. Coronavirus is detected EKG showing atrial fibrillation with a rate of 93 and QTC 437. Chest x-ray: No acute cardiopulmonary process per Patient does not receive aspirin or blood thinners in the emergency room 02/02/2021 Patient sitting up in bed today, less respiratory distress, more comfortable looking. However patient is still tachypneic. He remains on 3 L oxygen via nasal cannula WC improved up to 3.4 and platelet count increased up to 40 out is still recommended to keep holding Xarelto per hematology team. Sodium improved to 133. Creatinine improved since slightly 2.4 down to 2.1. TSH is normal at 0.5. Patient recommended to keep him off IV fluids and to continue encouraging oral hydration. Continue with dexamethasone, vitamin C, vitamin D and zinc. Resume Coreg 02/03/2021 Due to the hospital due to acute COVID-19 infection Patient is currently resting in the bed. Currently requiring oxygen at 3 L via nasal cannula. Patient is also being treated for community-acquired pneumonia. Patient is being continued on dexamethasone. Laboratory showed WBC four 2.7 hemoglobin 12.6 and platelets 40 Sodium 135 potassium 4.1 chloride 109 bicarb is 19 BUN 54 and creatinine 1.78. Patient is Xarelto due to chronic atrial fibrillation. Xarelto is on hold due to thrombocytopenia. Cardiology and pulmonary is on board. Patient otherwise denied any complaints of chest pain or shortness of breath. No nausea vomiting abdominal pain. No diarrhea. No fever no chills. 02/04/2021 Patient is currently resting in the bed. Awake alert and oriented x3. Requiring oxygen at 4 L via nasal cannula. Patient is being continued dexamethasone and multivitamins and neck Xarelto is on hold due to thrombocytopenia No petechial rash. No evidence of bleeding. Denied any chest pain or shortness of. No cough or sputum production. Patient has been afebrile. No headache or dizziness or lightheadedness. Laboratory data showed WBC 2.5 hemoglobin 13.0 and platelets 39 BUN 54 and creat inine 1.76 Cardiology and pulmonary is on board. Current medications reviewed. Objective - Vital Signs Vital signs: Vital Signs Temp 97.7 F 02/04/21 16:00 Pulse 96 02/04/21 16:00 Resp 22 02/04/21 16:00 BP 133/81 02/04/21 16:00 Pulse Ox 96 02/04/21 16:00 Intake & Output 02/04/21 02/04/21 02/05/21 06:59 18:59 06:59 Intake Total 360 240 Output Total 275 350 Balance -275 10 240 Weight 140 kg Intake: Oral 360 240 Output: Urine 275 350 Other: Voiding Method Toilet Toilet Urinal Urinal - Exam - Exam GENERAL: The patient is alert and oriented x3, not in any acute distress. Well developed, well nourished. HEENT: Pupils are round and equally reacting to light. EOMI. No scleral icterus. No conjunctival pallor. Normocephalic, atraumatic. No pharyngeal erythema. No thyromegaly. CARDIOVASCULAR: S1 and S2 present. No murmurs, rubs, or gallops. -PULMONARY: Chest is clear to auscultation, no wheezing or crackles. Mild prolongation of expiratory phase. Patient is tachypneic. ABDOMEN: Soft, nontender, nondistended, normoactive bowel sounds. No palpable organomegaly. MUSCULOSKELETAL: No joint swelling or deformity. EXTREMITIES: No cyanosis, clubbing, or pedal edema. NEUROLOGICAL: Gross neurological examination did not reveal any focal deficits. SKIN: No rashes. No petechiae - Labs CBC & Chem 7: 02/04/21 08:29 02/04/21 08:29 Labs: Abnormal Lab Results - Last 24 Hours (Table) 02/04/21 02/04/21 Range/Units 08:29 08:29 WBC 2.5 L (3.8-10.6) k/uL RBC 3.63 L (4.30-5.90) m/uL MCV 107.5 H (80.0-100.0) fL MCH 36.0 H (25.0-35.0) pg Plt Count 39 L (150-450) k/uL Lymphocytes # 0.3 L (1.0-4.8) k/uL Chloride 108 H (98-107) mmol/L Carbon Dioxide 20 L (22-30) mmol/L BUN 54 H (9-20) mg/dL Creatinine 1.76 H (0.66-1.25) mg/dL Glucose 227 H (74-99) mg/dL Calcium 8.1 L (8.4-10.2) mg/dL Microbiology - Last 24 Hours (Table) 01/31/21 21:00 Blood Culture - Preliminary Blood No Growth after 72 hours 01/31/21 21:00 Blood Culture - Preliminary Blood No Growth after 72 hours Assessment and Plan Assessment: COVID-19 infection with no significant evidence of pneumonia on the chest x-ray Acute hypoxic respiratory failure Elevated troponin, associated with recurrent central chest pain ruled out cardiac causes acute kidney disease on chronic kidney disease Chronic Atrial Fibrillation on xarelto Chronic heart failure Diarrhea Liver cirrhosis CKD, stage III Hyponatremia History of coronary artery disease status post stent History of pancytopenia History of asthma/COPD History of deep venous thrombosis History of GERD History of osteoarthritis History of recent AAA surgery History of hepatitis C treated 3 Chronic back pain and neck pain History of gout History of chronic numbness of the right lower leg Morbid obesity with BMI 43.4 Plan: This is a pleasant 70 years old male who presents with elevated troponin, mild A. fib, covid infection and pancytopenia Continue with multiple vitamins, vitamin C, vitamin D and zinc Consulted hematology team for pancytopenia. Keep holding Xarelto Continue with steroids and vitamins. Monitor oxygen level Labs and medication were reviewed. Monitor lytes and vitals. DVT and GI pr ophylaxis. DVT prophylaxis no Anticoagulation in view of severe thrombocytopenia GI Prophylaxis: Ppi PT/OT: Pending Prognosis is guarded Time with Patient: Greater than 30
[2021-02-05] MEDS ORDERED: FUROSEMIDE 10 MG/ML 4 ML VIAL IV STA (00:19)
[2021-02-05] MEDS: SODIUM CHLORIDE 0.9% 500 ML 500 ML IV SCH (00:38)
[2021-02-05] MEDS ORDERED: methylPREDNISolone SOD SUCCI 125 MG/2 ML VIAL IV SCH (03:00)
[2021-02-05 06:17] LABS: Glucose,Whole Blood 271 mg/dL (75-99)
[2021-02-05] MEDS: INSULIN ASPART (NovoLOG) 100 UNIT/ML VIAL SQ SCH ×5 (06:45→20:47)
[2021-02-05] MEDS: PANTOPRAZOLE 40 MG TABLET PO SCH (06:45)
[2021-02-05] MEDS: carvediloL 6.25 MG TAB PO SCH ×2 (06:45→18:05)
[2021-02-05 07:46] LABS: Basophils % (A) 0 %; Eosinophils % (A) 0 %; HCT 37.3 % (39.0-53.0); HGB 12.8 gm/dL (13.0-17.5); Lymphocytes # (A) 0.2 k/uL (1.0-4.8); Lymphocytes % (A) 10 %; MCH 36.2 pg (25.0-35.0); MCHC 34.3 g/dL (31.0-37.0); MCV 105.5 fL (80.0-100.0); Macrocytosis Moderate; Mean Platelet Volume 11.3; Monocytes # (A) 0.1 k/uL (0-1.0); Monocytes % (A) 6 %; Neutrophils # (A) 1.7 k/uL (1.3-7.7); Neutrophils % (A) 81 %; RBC 3.53 m/uL (4.30-5.90); RDW 13.8 % (11.5-15.5); WBC 2.1 k/uL (3.8-10.6)
[2021-02-05 08:04] LABS: Calcium 7.9 mg/dL (8.4-10.2); Potassium 4.3 mmol/L (3.5-5.1)
[2021-02-05 08:07] LABS: Platelet Count 40 k/uL (150-450)
[2021-02-05] MEDS: ALBUTEROL HFA INHALER INHALATION SCH ×4 (08:28→21:16)
[2021-02-05] MEDS: methylPREDNISolone SOD SUCCI 125 MG/2 ML VIAL IV SCH ×3 (09:36→20:48)
[2021-02-05] MEDS: THIAMINE 100 MG TAB PO SCH (09:36)
[2021-02-05] MEDS: CHOLECALCIFEROL 125 MCG (5000 IU) TABLET PO SCH (09:37)
[2021-02-05] MEDS: FOLIC ACID 1 MG TAB PO SCH (09:37)
[2021-02-05] MEDS: CYANOCOBALAMIN 500 MCG TAB PO SCH (09:37)
[2021-02-05] MEDS: ASCORBIC ACID 500 MG TAB PO SCH (09:37)
[2021-02-05] MEDS: dexAMETHasone 2 MG TAB PO SCH (09:37)
[2021-02-05] MEDS: ZINC SULFATE 220 MG CAP PO SCH (09:37)
[2021-02-05 11:39] LABS: Glucose,Whole Blood 240 mg/dL (75-99)
[2021-02-05 13:11] VITALS: BMI 41.8
--- NOTE | 2021-02-05 13:51 | P.PN ---
Subjective Progress Note Date: 02/05/21 CHIEF COMPLAINT: Elevated troponin HISTORY OF PRESENT ILLNESS: This is a 70 year old male who is admitted to the hospital secondary to Covid. According to the patients nurse, he has had no complaints of chest pain or pressure. He does report SOB and has some lower extremity edema. Platelet count yesterday was 30. His Xarelto has been put on hold. Hematology is following. Patients creatinine today is 2.13, down from 2.40. His Demadex and Aldactone remain on hold. Nephrology is following. 02/03/2021 Patient remains on the selective care unit. Patient's platelets are 40. His Xarelto remains on hold. Patient's creatinine today has slightly improved to 1.78, down from 2.1. His Demadex and Aldactone remain on hold. Nephrology is following. 02/04/2021 Patient remains on the selective care unit. Patient's platelets are 39. His Xarelto remains on hold. Patient's creatinine today is 1.76. His Demadex and Aldactone remain on hold. Nephrology is following. 02/05/2021 Patient remains on the selective care unit. Patient's platelets are 40. His Xarelto remains on hold. Patient's creatinine today is 1.66. His Demadex and Aldactone remain on hold. Nephrology is following. PHYSICAL EXAM: Thorough physical exam not completed secondary to limited evaluation/examination due to Covid19 ASSESSMENT: Covid 19 Chronic persistent atrial fibrillation, on Xarelto Chronic thrombocytopenia COPD Chronic liver disease Acute on chronic kidney disease PLAN: Monitor platelet count. Hematology recommends holding Xarelto if platelet count less than 50. Xarelto has been discontinued. Continue current cardiac medications Continue telemetry monitoring Diuretics per nephrology No further inpatient recommendations from a cardiac standpoint. We will sign off. Please reconsult if needed Nurse practitioner note has been reviewed by physician. Signing provider agrees with the documented findings, assessment, and plan of care. Objective - Vital Signs Vital signs: Vital Signs Temp 97.0 F L 02/05/21 08:00 Pulse 74 02/05/21 08:00 Resp 22 02/05/21 08:00 BP 103/50 02/05/21 08:00 Pulse Ox 97 02/05/21 08:00 Intake & Output 02/04/21 02/05/21 02/05/21 18:59 06:59 18:59 Intake Total 360 240 240 Output Total 350 950 250 Balance 10 -710 -10 Weight 140 kg Intake: Oral 360 240 240 Output: Urine 350 950 250 Other: Voiding Method Toilet Toilet Toilet Urinal Urinal Urinal # Bowel Movements 1 - Labs CBC & Chem 7: 02/05/21 07:02 02/05/21 07:02 Labs: Abnormal Lab Results - Last 24 Hours (Table) 02/05/21 02/05/21 02/05/21 Range/Units 05:49 07:02 07:02 WBC 2.1 L (3.8-10.6) k/uL RBC 3.53 L (4.30-5.90) m/uL Hgb 12.8 L (13.0-17.5) gm/dL Hct 37.3 L (39.0-53.0) % MCV 105.5 H (80.0-100.0) fL MCH 36.2 H (25.0-35.0) pg Plt Count 40 L (150-450) k/uL Lymphocytes # 0.2 L (1.0-4.8) k/uL Sodium 135 L (137-145) mmol/L Chloride 110 H (98-107) mmol/L Carbon Dioxide 19 L (22-30) mmol/L BUN 54 H (9-20) mg/dL Creatinine 1.66 H (0.66-1.25) mg/dL Glucose 252 H (74-99) mg/dL POC Glucose (mg/dL) 271 H (75-99) mg/dL Calcium 7.9 L (8.4-10.2) mg/dL 02/05/21 Range/Units 11:37 WBC (3.8-10.6) k/uL RBC (4.30-5.90) m/uL Hgb (13.0-17.5) gm/dL Hct (39.0-53.0) % MCV (80.0-100.0) fL MCH (25.0-35.0) pg Plt Count (150-450) k/uL Lymphocytes # (1.0-4.8) k/uL Sodium (137-145) mmol/L Chloride (98-107) mmol/L Carbon Dioxide (22-30) mmol/L BUN (9-20) mg/dL Creatinine (0.66-1.25) mg/dL Glucose (74-99) mg/dL POC Glucose (mg/dL) 240 H (75-99) mg/dL Calcium (8.4-10.2) mg/dL Microbiology - Last 24 Hours (Table) 01/31/21 21:00 Blood Culture - Preliminary Blood No Growth after 96 hours 01/31/21 21:00 Blood Culture - Preliminary Blood No Growth after 96 hours
--- NOTE | 2021-02-05 14:57 | PN ---
PROGRESS NOTE Patient is seen for followup for acute kidney injury on top of chronic kidney disease. Renal function has been stable and slightly improved with creatinine down to 1.6. Last night patient developed significant respiratory distress and received one dose of IV Lasix. His respirations are much better. O2 requirements were up to 5 L. PHYSICAL EXAMINATION: On examination today, blood pressure 103/50, heart rate 74 per minute. Patient is afebrile. No edema noted in his lower extremities. Lungs and heart are not examined. LAB: Show sodium 135, potassium 4.3, chloride 110, CO2 is 19, BUN 54, creatinine 1.6, hemoglobin 12.8 g/dL. ASSESSMENT: 1. Acute kidney injury, ATN, improving. The patient is currently hypervolemic. He did receive a dose of Lasix last night. We can give him another dose today. 2. COVID-19 pneumonia. 3. Metabolic acidosis associated with acute kidney injury, now improved. PLAN: Repeat Lasix now. Continue off IV fluids. Monitor urine output. May need another dose later on today. MMODL / IJN: [id number] /
[2021-02-05 16:28] LABS: Glucose,Whole Blood 313 mg/dL (75-99)
--- NOTE | 2021-02-05 17:43 | P.PN ---
Subjective Progress Note Date: 02/05/21 This is a 70-year-old male patient follows with Dr. Mena as his primary care provider. He has a history of chronic obstructive pulmonary disease, previous tobacco dependence, atrial fibrillation anticoagulation with Xarelto, gastroesophageal reflux disease, hypertension pancytopenia, liver cirrhosis, occasional alcohol use, marijuana use. The patient presented here to the emergency room last evening with a two-week history of shortness of breath with worsening dyspnea on exertion. He's had a poor appetite. He has not been eating much the last several days. White count 1.2. Hemoglobin 12.8. Platelet count 30,000. INR 1.2. D-dimer 3.90. Sodium 126. Potassium 3.6. Creatinine 2.40. Glucose 178. Troponin 0.042, 0.043, 0.038. LDH 778. Pro-calcitonin 0.26. Current virus by PCR positive. X-ray revealed no acute pulmonary process. He is currently maintaining O2 saturations in the mid 90s on 3 L/m per nasal cannula. He is seen in consultation in the emergency room. He is awake and alert. He is dyspneic with minimal exertion. He is 95% O2 saturation currently. He's been afebrile. He's been initiated on Decadron, vitamin supplements, continued on his Xarelto. On today's evaluation of 02/02/2021, the patient is being seen for a follow-up. As noted, the patient has multiple medical problems and comorbidities. The patient has chronic hepatitis C and secondary liver cirrhosis with pancytopenia and splenomegaly. The patient also has chronic systolic heart failure with an ejection fraction of 40-45%, chronic atrial fibrillation, history of alcoholism, COPD and chronic stage III to for kidney disease. The patient is coming in for COVID-19 related symptoms including generalized weakness and hyponatremia and the patient also has been short of breath. Chest x-ray is not showing clear indication for pneumonia. The patient was started on Decadron. The patient was seen by nephrology. Diuretics were held and the patient was given gentle hydration and sodium levels being monitored. He remains on 3 L of oxygen by nasal cannula. The blood work from today shows improvement in the sodium level which is up to 133. The rest of the blood work shows a white cell count of 3.4 with a hemoglobin of 13.4, he had a platelet count of 30 and we are waiting for the follow-up counseling and the patient is on long-term anticoagulation with Xarelto which is currently still active on his list. The creatinine is improved and is down to 2.1. Serum bicarb is at 18. BUN is at 55. On 02/03/2021, the patient remains on 3 L of oxygen by nasal cannula. He is being seen today seen in follow-up. He is got multiple medical problems and comorbidities including liver cirrhosis and previous history of hepatitis C. He has also cardiomyopathy, chronic atrial fibrillation, COPD, chronic stage III kidney disease and alcoholism. For now, the patient is being treated for community related pneumonia. The patient is on Decadron. The blood work from today reveals a white cell count of 2.7 and the patient is chronically leukopenic. Platelet count isn't currently at 40. The creatinine is improving is currently down to 1.78 and a serum bicarbonate of 19 with a gap of 7 and the sodium level of 135. Stool for C. diff has been negative. TSH level was at 0.5. Patient has no specific complaints otherwise for now. The patient is resting comfortably in bed. It's possible that the patient can wean down on his FiO2. Tolerating diet. No nausea or vomiting. No signs of any bleeding. 02/04/2021, the patient reports that his breathing is stable. No interval worse sri in shortness of breath. He remains on 3 L. His condition is otherwise unchanged. He is a bit weak and debilitated. He has multiple medical problems and comorbidities. On his blood work today, the patient has a white cell count of 2.5 with a hemoglobin of 13 and a platelet count of 39. All of these values are stable compared to earlier numbers. Creatinine is down to 1.76 with a mean of 54 and a sodium level of 137. No other abnormal findings on his blood work. The patient remains on treatment and the patient is currently receiving Decadron 6 mg by mouth daily. He is off anticoagulation as his platelet counts are less than 50. No other significant interval change. 02/05/2021 I'm seeing the patient for a follow-up. Overnight, the patient has some increased shortness of breath and his oxygen requirements went up. I initially given a dose of Lasix 40 mg IV. He had limited diuresis. Following that, he was noted to be increasing to bronchospastic and wheezy. For that rosalba son, the patient was started on IV Solu-Medrol. Clinically is feeling better. Less focused spastic and wheezy on today's evaluation. No significant sputum production for now. The patient has a white cell count of 2.4 with a hemoglobin of 4.8 which is essentially comparable to yesterday. Platelet count remains low at 40. Creatinine is 1.6 with a BUN 54 Sodium level of 135. At this point in time, the patient is on 5 L about 2 by nasal cannula. His afebrile. Objective - Vital Signs Vital signs: Vital Signs Temp 96.9 F L 02/05/21 12:00 Pulse 72 02/05/21 14:00 Resp 22 02/05/21 14:00 BP 110/66 02/05/21 12:00 Pulse Ox 96 02/05/21 12:00 Intake & Output 02/04/21 02/05/21 02/05/21 18:59 06:59 18:59 Intake Total 360 240 240 Output Total 350 950 250 Balance 10 -710 -10 Weight 140 kg Intake: Oral 360 240 240 Output: Urine 350 950 250 Other: Voiding Method Toilet Toilet Toilet Urinal Urinal Urinal # Bowel Movements 1 - Exam GENERAL EXAM: Alert, doesn't 70 year old gentleman, on 5 L nasal cannula, comfortable in no apparent distress. HEAD: Normocephalic. EYES: Normal reaction of pupils, equal size. NOSE: Clear with pink turbinates. THROAT: No erythema or exudates. NECK: No masses, no JVD. CHEST: No chest wall deformity. LUNGS: Equal air entry with no crackles, wheeze, rhonchi or dullness. Diminished. CVS: S1 and S2 normal with no audible murmur, regular rhythm. ABDOMEN: No hepatosplenomegaly, normal bowel sounds, no guarding or rigidity. SPINE: No scoliosis or deformity SKIN: No rashes CENTRAL NERVOUS SYSTEM: No focal deficits, tone is normal in all 4 extremities. EXTREMITIES: There is no peripheral edema. No clubbing, no cyanosis. Peripheral pulses are intact. - Labs CBC & Chem 7: 02/05/21 07:02 02/05/21 07:02 Labs: Abnormal Lab Results - Last 24 Hours (Table) 02/05/21 02/05/21 02/05/21 Range/Units 05:49 07:02 07:02 WBC 2.1 L (3.8-10.6) k/uL RBC 3.53 L (4.30-5.90) m/uL Hgb 12.8 L (13.0-17.5) gm/dL Hct 37.3 L (39.0-53.0) % MCV 105.5 H (80.0-100.0) fL MCH 36.2 H (25.0-35.0) pg Plt Count 40 L (150-450) k/uL Lymphocytes # 0.2 L (1.0-4.8) k/uL Sodium 135 L (137-145) mmol/L Chloride 110 H (98-107) mmol/L Carbon Dioxide 19 L (22-30) mmol/L BUN 54 H (9-20) mg/dL Creatinine 1.66 H (0.66-1.25) mg/dL Glucose 252 H (74-99) mg/dL POC Glucose (mg/dL) 271 H (75-99) mg/dL Calcium 7.9 L (8.4-10.2) mg/dL 02/05/21 02/05/21 Range/Units 11:37 16:26 WBC (3.8-10.6) k/uL RBC (4.30-5.90) m/uL Hgb (13.0-17.5) gm/dL Hct (39.0-53.0) % MCV (80.0-100.0) fL MCH (25.0-35.0) pg Plt Count (150-450) k/uL Lymphocytes # (1.0-4.8) k/uL Sodium (137-145) mmol/L Chloride (98-107) mmol/L Carbon Dioxide (22-30) mmol/L BUN (9-20) mg/dL Creatinine (0.66-1.25) mg/dL Glucose (74-99) mg/dL POC Glucose (mg/dL) 240 H 313 H (75-99) mg/dL Calcium (8.4-10.2) mg/dL Microbiology - Last 24 Hours (Table) 01/31/21 21:00 Blood Culture - Preliminary Blood No Growth after 96 hours 01/31/21 21:00 Blood Culture - Preliminary Blood No Growth after 96 hours Assessment and Plan Plan: 1 COVID-19 infection with secondary generalized weakness and fatigue along with a component of hyponatremia contributing to the patient's symptoms. Not vaccinated. Outside the window for Remdesivir. The patient is currently stable on 3 L of oxygen by nasal cannula. No interval worsening shortness of breath. Patient currently on IV Solu Medrol as the patient developed increased bronchospasm and wheezing on yesterday's evaluation. 2 Acute hypoxic respiratory failure secondary to acute COVID-19 infection. Currently on 5 L nasal cannula. No significant airspace opacities noted on chest x-ray. Pro Calcitonin 0.26 3 chronic liver cirrhosis/ HCV 4 Hyponatremia, improved 5 chronic kidney disease stage 3-4 the creatinine is improved compared to y esterday, the acute kidney injury is also improving 6 Pancytopenia, known history of, possibly component of chronic liver disease/cirrhosis as the patient has chronic leukopenia and has underlying sp lenomegaly, the patient also has chronic thrombocytopenia 7 Chronic atrial fibrillation, anticoagulated with Xarelto 8 Splenomegaly 9 Chronic obstructive pulmonary disease 10 History of chronic tobacco dependence 11 non-anion gap metabolic acidosis, serum bicarb is currently at 20 and the kidney function is also improving and the creatinine is down to 1.76 and the patient has a serum bicarb of 20 with anion gap of 9. 12 troponin leak 13 chronic systolic heart failure with ejection fraction 40-45% Plan Continue bronchodilators. Continue IV Solu-Medrol Repeat chest x-ray Awaiting the FiO2 as tolerated to maintain a saturation above 90%, condition is stable on Decadron and the patient has no worsening in her oxygenation. Monitor the platelet count , the patient's chronic thrombocytopenia, and recommend holding Xarelto if there is further drop in the platelet count < 50 Continue vitamin supplements Restart Xarelto monitoring the patient's platelet count The platelet Counts are stable for now and the patient has not seen any signs of bleeding Involve physical therapy and consider inpatient rehabilitation specially above- mentioned comorbidities. We will continue to follow and make further recommendations based on his clinical status
[2021-02-05] MEDS: ENOXAPARIN 40 MG/0.4 ML SYRINGE SQ SCH (18:08)
[2021-02-05 19:58] LABS: Glucose,Whole Blood 381 mg/dL (75-99)
[2021-02-05] MEDS: INSULIN DETEMIR (LEVEMIR) 100 UNIT/ML SYR SQ SCH (20:47)
[2021-02-05] MEDS: allopurinoL 100 MG TAB PO SCH (20:48)
[2021-02-06] MEDS: SODIUM CHLORIDE 0.9% 500 ML 500 ML IV SCH (01:52)
[2021-02-06] MEDS: methylPREDNISolone SOD SUCCI 125 MG/2 ML VIAL IV SCH ×4 (03:21→21:29)
[2021-02-06 06:13] LABS: Glucose,Whole Blood 237 mg/dL (75-99)
[2021-02-06] MEDS: carvediloL 6.25 MG TAB PO SCH ×2 (06:31→18:01)
[2021-02-06] MEDS: PANTOPRAZOLE 40 MG TABLET PO SCH (06:31)
[2021-02-06] MEDS: INSULIN ASPART (NovoLOG) 100 UNIT/ML VIAL SQ SCH ×7 (06:32→21:30)
--- NOTE | 2021-02-06 07:10 | XR ---
EXAMINATION TYPE: XR chest 1V DATE OF EXAM: 02/06/2021 CLINICAL HISTORY: Difficulty breathing and covid . TECHNIQUE: Single AP portable semiupright view of the chest is obtained. COMPARISON: Chest x-ray from January 31, 2021 FINDINGS: There are faint reticular increased opacities throughout the mid to lower lungs more promi nent on current study versus most recent x-ray. Cardiac silhouette size stable and within normal limi ts. Osseous structures are intact. IMPRESSION: Bilateral increased opacities in the mid to lower lungs consistent with covid-10 infectio n progression.
[2021-02-06] MEDS ORDERED: INSULIN ASPART (NovoLOG) 100 UNIT/ML VIAL SQ SCH (07:30)
[2021-02-06] MEDS: THIAMINE 100 MG TAB PO SCH (07:47)
[2021-02-06] MEDS: FOLIC ACID 1 MG TAB PO SCH (07:47)
[2021-02-06] MEDS: ZINC SULFATE 220 MG CAP PO SCH (07:47)
[2021-02-06] MEDS: ASCORBIC ACID 500 MG TAB PO SCH (07:47)
[2021-02-06] MEDS: CHOLECALCIFEROL 125 MCG (5000 IU) TABLET PO SCH (07:47)
[2021-02-06] MEDS: CYANOCOBALAMIN 500 MCG TAB PO SCH (07:47)
[2021-02-06] MEDS: ENOXAPARIN 40 MG/0.4 ML SYRINGE SQ SCH (07:48)
[2021-02-06] MEDS: ALBUTEROL HFA INHALER INHALATION SCH ×4 (09:20→19:46)
[2021-02-06 09:33] LABS: Basophils % (A) 0 %; Eosinophils % (A) 0 %; HCT 37.7 % (39.0-53.0); HGB 13.1 gm/dL (13.0-17.5); Lymphocytes # (A) 0.2 k/uL (1.0-4.8); Lymphocytes % (A) 9 %; MCH 36.7 pg (25.0-35.0); MCHC 34.8 g/dL (31.0-37.0); MCV 105.3 fL (80.0-100.0); Macrocytosis Moderate; Mean Platelet Volume 10.9; Monocytes # (A) 0.2 k/uL (0-1.0); Monocytes % (A) 6 %; Neutrophils # (A) 2.2 k/uL (1.3-7.7); Neutrophils % (A) 84 %; RBC 3.58 m/uL (4.30-5.90); RDW 13.7 % (11.5-15.5); WBC 2.6 k/uL (3.8-10.6)
[2021-02-06 09:43] LABS: Platelet Count 43 k/uL (150-450)
[2021-02-06 09:45] LABS: Calcium 8.1 mg/dL (8.4-10.2); Potassium 4.3 mmol/L (3.5-5.1)
[2021-02-06 11:43] LABS: Glucose,Whole Blood 226 mg/dL (75-99)
--- NOTE | 2021-02-06 16:04 | P.PN ---
Subjective Progress Note Date: 02/06/21 This is a 70-year-old male patient follows with Dr. Mena as his primary care provider. He has a history of chronic obstructive pulmonary disease, previous tobacco dependence, atrial fibrillation anticoagulation with Xarelto, gastroesophageal reflux disease, hypertension pancytopenia, liver cirrhosis, occasional alcohol use, marijuana use. The patient presented here to the emergency room last evening with a two-week history of shortness of breath with worsening dyspnea on exertion. He's had a poor appetite. He has not been eating much the last several days. White count 1.2. Hemoglobin 12.8. Platelet count 30,000. INR 1.2. D-dimer 3.90. Sodium 126. Potassium 3.6. Creatinine 2.40. Glucose 178. Troponin 0.042, 0.043, 0.038. LDH 778. Pro-calcitonin 0.26. Current virus by PCR positive. X-ray revealed no acute pulmonary process. He is currently maintaining O2 saturations in the mid 90s on 3 L/m per nasal cannula. He is seen in consultation in the emergency room. He is awake and alert. He is dyspneic with minimal exertion. He is 95% O2 saturation currently. He's been afebrile. He's been initiated on Decadron, vitamin supplements, continued on his Xarelto. On today's evaluation of 02/02/2021, the patient is being seen for a follow-up. As noted, the patient has multiple medical problems and comorbidities. The patient has chronic hepatitis C and secondary liver cirrhosis with pancytopenia and splenomegaly. The patient also has chronic systolic heart failure with an ejection fraction of 40-45%, chronic atrial fibrillation, history of alcoholism, COPD and chronic stage III to for kidney disease. The patient is coming in for COVID-19 related symptoms including generalized weakness and hyponatremia and the patient also has been short of breath. Chest x-ray is not showing clear indication for pneumonia. The patient was started on Decadron. The patient was seen by nephrology. Diuretics were held and the patient was given gentle hydration and sodium levels being monitored. He remains on 3 L of oxygen by nasal cannula. The blood work from today shows improvement in the sodium level which is up to 133. The rest of the blood work shows a white cell count of 3.4 with a hemoglobin of 13.4, he had a platelet count of 30 and we are waiting for the follow-up counseling and the patient is on long-term anticoagulation with Xarelto which is currently still active on his list. The creatinine is improved and is down to 2.1. Serum bicarb is at 18. BUN is at 55. On 02/03/2021, the patient remains on 3 L of oxygen by nasal cannula. He is being seen today seen in follow-up. He is got multiple medical problems and comorbidities including liver cirrhosis and previous history of hepatitis C. He has also cardiomyopathy, chronic atrial fibrillation, COPD, chronic stage III kidney disease and alcoholism. For now, the patient is being treated for community related pneumonia. The patient is on Decadron. The blood work from today reveals a white cell count of 2.7 and the patient is chronically leukopenic. Platelet count isn't currently at 40. The creatinine is improving is currently down to 1.78 and a serum bicarbonate of 19 with a gap of 7 and the sodium level of 135. Stool for C. diff has been negative. TSH level was at 0.5. Patient has no specific complaints otherwise for now. The patient is resting comfortably in bed. It's possible that the patient can wean down on his FiO2. Tolerating diet. No nausea or vomiting. No signs of any bleeding. 02/04/2021, the patient reports that his breathing is stable. No interval worse sri in shortness of breath. He remains on 3 L. His condition is otherwise unchanged. He is a bit weak and debilitated. He has multiple medical problems and comorbidities. On his blood work today, the patient has a white cell count of 2.5 with a hemoglobin of 13 and a platelet count of 39. All of these values are stable compared to earlier numbers. Creatinine is down to 1.76 with a mean of 54 and a sodium level of 137. No other abnormal findings on his blood work. The patient remains on treatment and the patient is currently receiving Decadron 6 mg by mouth daily. He is off anticoagulation as his platelet counts are less than 50. No other significant interval change. 02/05/2021 I'm seeing the patient for a follow-up. Overnight, the patient has some increased shortness of breath and his oxygen requirements went up. I initially given a dose of Lasix 40 mg IV. He had limited diuresis. Following that, he was noted to be increasing to bronchospastic and wheezy. For that rosalba son, the patient was started on IV Solu-Medrol. Clinically is feeling better. Less focused spastic and wheezy on today's evaluation. No significant sputum production for now. The patient has a white cell count of 2.4 with a hemoglobin of 4.8 which is essentially comparable to yesterday. Platelet count remains low at 40. Creatinine is 1.6 with a BUN 54 Sodium level of 135. At this point in time, the patient is on 5 L about 2 by nasal cannula. His afebrile. 02/06/2021, the patient remains somewhat bronchospastic and wheezy on oxygen at 6 L to maintain a saturation around 96%. He is a poor historian. Doesn't communicate a whole lot. His breathing is not labored on today's evaluation. No significant chest pain. No shortness of breath according to him. He is afebrile. Continues to be on IV Solu-Medrol. I opted to keep the IV Solu Medrol as the patient become bronchospastic and wheezy during the course of his illness. His sugars at 226. He is taking guaifenesin for cough and congestion. He is also on Ventolin HFA 2 puffs 4 times a day. Rest of the medication remains unchanged and the patient is also on Lovenox 40 mg subcu for DVT prophylaxis. He is known to have COPD. He is also known to have a chronic atrial fibrillation and he has chronic thrombocytopenia and he was taken off the Xarelto for now due to his platelet counts being under 50. Objective - Vital Signs Vital signs: Vital Signs Temp 97.8 F 02/06/21 12:00 Pulse 92 02/06/21 12:07 Resp 24 02/06/21 12:00 BP 118/77 02/06/21 12:00 Pulse Ox 96 02/06/21 12:00 Intake & Output 02/05/21 02/06/21 02/06/21 18:59 06:59 18:59 Intake Total 360 Output Total 450 725 275 Balance -90 -725 -275 Weight 140 kg 137.5 kg Intake: Oral 360 Output: Urine 450 725 275 Straight 200 Stool 0 0 Other: Voiding Method Toilet Toilet Urinal Urinal # Voids 0 # Bowel Movements 0 - Exam GENERAL EXAM: Alert, doesn't 70 year old gentleman, on 6 L nasal cannula, comfortable in no apparent distress. HEAD: Normocephalic. EYES: Normal reaction of pupils, equal size. NOSE: Clear with pink turbinates. THROAT: No erythema or exudates. NECK: No masses, no JVD. CHEST: No chest wall deformity. LUNGS: Equal air entry with no crackles, wheeze, rhonchi or dullness. Diminished. CVS: S1 and S2 normal with no audible murmur, regular rhythm. ABDOMEN: No hepatosplenomegaly, normal bowel sounds, no guarding or rigidity. SPINE: No scoliosis or deformity SKIN: No rashes CENTRAL NERVOUS SYSTEM: No focal deficits, tone is normal in all 4 extremities. EXTREMITIES: There is no peripheral edema. No clubbing, no cyanosis. Peripheral pulses are intact. - Labs CBC & Chem 7: 02/06/21 08:45 02/06/21 08:45 Labs: Abnormal Lab Results - Last 24 Hours (Table) 02/05/21 02/05/21 02/06/21 Range/Units 16:26 19:57 06:11 WBC (3.8-10.6) k/uL RBC (4.30-5.90) m/uL Hct (39.0-53.0) % MCV (80.0-100.0) fL MCH (25.0-35.0) pg Plt Count (150-450) k/uL Lymphocytes # (1.0-4.8) k/uL Sodium (137-145) mmol/L Chloride (98-107) mmol/L Carbon Dioxide (22-30) mmol/L BUN (9-20) mg/dL Creatinine (0.66-1.25) mg/dL Glucose (74-99) mg/dL POC Glucose (mg/dL) 313 H 381 H 237 H (75-99) mg/dL Calcium (8.4-10.2) mg/dL 02/06/21 02/06/21 02/06/21 Range/Units 08:45 08:45 11:42 WBC 2.6 L (3.8-10.6) k/uL RBC 3.58 L (4.30-5.90) m/uL Hct 37.7 L (39.0-53.0) % MCV 105.3 H (80.0-100.0) fL MCH 36.7 H (25.0-35.0) pg Plt Count 43 L (150-450) k/uL Lymphocytes # 0.2 L (1.0-4.8) k/uL Sodium 136 L (137-145) mmol/L Chloride 111 H (98-107) mmol/L Carbon Dioxide 17 L (22-30) mmol/L BUN 57 H (9-20) mg/dL Creatinine 1.83 H (0.66-1.25) mg/dL Glucose 240 H (74-99) mg/dL POC Glucose (mg/dL) 226 H (75-99) mg/dL Calcium 8.1 L (8.4-10.2) mg/dL Microbiology - Last 24 Hours (Table) 01/31/21 21:00 Blood Culture - Preliminary Blood No Growth after 120 hours 01/31/21 21:00 Blood Culture - Preliminary Blood No Growth after 120 hours Assessment and Plan Plan: 1 COVID-19 infection with secondary generalized weakness and fatigue along with a component of hyponatremia contributing to the patient's symptoms. Not vaccinated. Outside the window for Remdesivir. The patient is currently stable on 6 L of oxygen by nasal cannula. During the course of the illness, the patient COPD exacerbated and the patient is currently on IV Solu Medrol. Feeling well and 6 L about 2 by nasal cannula. Repeat chest x-ray from today shows bilateral opacities in the mid lower lung field consistent with: 19 infec tion, findings are essentially stable for now. 2 Acute hypoxic respiratory failure secondary to acute COVID-19 infection. Currently on 6 L nasal cannula. No significant airspace opacities noted on chest x-ray. Pro Calcitonin 0.26 3 chronic liver cirrhosis/ HCV 4 Hyponatremia, improved 5 chronic kidney disease stage 3-4 the creatinine is improved compared to yesterday, the acute kidney injury is also improving 6 Pancytopenia, known history of, possibly component of chronic liver diseas e/cirrhosis as the patient has chronic leukopenia and has underlying splenomegaly, the patient also has chronic thrombocytopenia 7 Chronic atrial fibrillation, anticoagulated with Xarelto 8 Splenomegaly 9 Chronic obstructive pulmonary disease 10 History of chronic tobacco dependence 11 non-anion gap metabolic acidosis, serum bicarb is currently at 20 and the kidney function is also improving and the creatinine is down to 1.76 and the patient has a serum bicarb of 20 with anion gap of 9. 12 troponin leak 13 chronic systolic heart failure with ejection fraction 40-45% Plan Continue bronchodilators. Continue IV Solu-Medrol Repeat chest x-ray from today shows stable bilateral opacities in the mid lower lung navarro bilaterally, unchanged consistent with COVID 19 related pneumonia. Awaiting the FiO2 as tolerated to maintain a saturation above 90%, condition is stable on Decadron and the patient has no worsening in her oxygenation. Monitor the platelet count , the patient's chronic thrombocytopenia, and recommend holding Xarelto if there is further drop in the platelet count < 50 Continue vitamin supplements We'll keep Xarelto on hold as long as the platelet count is less than 50 and keep the patient on Lovenox 40 mg subcu for DVT prophylaxis. The platelet Counts are stable for now and the patient has not seen any signs of bleeding Involve physical therapy and consider inpatient rehabilitation specially above- mentioned comorbidities. We will continue to follow and make further recommendations based on his clinical status
[2021-02-06 16:53] LABS: Glucose,Whole Blood 325 mg/dL (75-99)
[2021-02-06] MEDS: allopurinoL 100 MG TAB PO SCH (21:28)
[2021-02-06] MEDS: INSULIN DETEMIR (LEVEMIR) 100 UNIT/ML SYR SQ SCH (21:28)
[2021-02-07] MEDS: SODIUM CHLORIDE 0.9% 500 ML 500 ML IV SCH ×2 (03:41→03:44)
[2021-02-07] MEDS: methylPREDNISolone SOD SUCCI 125 MG/2 ML VIAL IV SCH ×2 (03:46→09:55)
[2021-02-07] MEDS: PANTOPRAZOLE 40 MG TABLET PO SCH (06:14)
[2021-02-07] MEDS: carvediloL 6.25 MG TAB PO SCH ×2 (06:14→17:17)
[2021-02-07 06:27] LABS: Glucose,Whole Blood 133 mg/dL (75-99)
[2021-02-07 06:27] LABS: Glucose,Whole Blood 217 mg/dL (75-99)
[2021-02-07] MEDS: ALBUTEROL HFA INHALER INHALATION SCH ×4 (08:27→21:21)
[2021-02-07] MEDS: CHOLECALCIFEROL 125 MCG (5000 IU) TABLET PO SCH (09:54)
[2021-02-07] MEDS: ZINC SULFATE 220 MG CAP PO SCH (09:54)
[2021-02-07] MEDS: CYANOCOBALAMIN 500 MCG TAB PO SCH (09:54)
[2021-02-07] MEDS: ASCORBIC ACID 500 MG TAB PO SCH (09:55)
[2021-02-07] MEDS: ENOXAPARIN 40 MG/0.4 ML SYRINGE SQ SCH (09:55)
[2021-02-07] MEDS: FOLIC ACID 1 MG TAB PO SCH (09:55)
[2021-02-07] MEDS: INSULIN ASPART (NovoLOG) 100 UNIT/ML VIAL SQ SCH ×7 (09:55→21:09)
[2021-02-07 11:03] LABS: Basophils % (A) 0 %; Eosinophils % (A) 0 %; HCT 39.9 % (39.0-53.0); HGB 13.5 gm/dL (13.0-17.5); Lymphocytes # (A) 0.2 k/uL (1.0-4.8); Lymphocytes % (A) 6 %; MCH 36.4 pg (25.0-35.0); MCHC 33.8 g/dL (31.0-37.0); MCV 107.8 fL (80.0-100.0); Macrocytosis Moderate; Mean Platelet Volume 11.1; Monocytes # (A) 0.2 k/uL (0-1.0); Monocytes % (A) 6 %; Neutrophils # (A) 2.2 k/uL (1.3-7.7); Neutrophils % (A) 87 %; RDW 13.9 % (11.5-15.5); WBC 2.5 k/uL (3.8-10.6)
[2021-02-07 11:10] LABS: Platelet Count 39 k/uL (150-450)
[2021-02-07 11:32] LABS: Calcium 7.9 mg/dL (8.4-10.2); Potassium 4.8 mmol/L (3.5-5.1)
[2021-02-07 11:41] LABS: Glucose,Whole Blood 353 mg/dL (75-99)
[2021-02-07] MEDS: predniSONE 20 MG TAB PO SCH (12:40)
[2021-02-07] MEDS: THIAMINE 100 MG TAB PO SCH (12:40)
--- NOTE | 2021-02-07 13:00 | PN ---
PROGRESS NOTE Patient is seen for followup for chronic kidney disease and acute kidney injury. Renal function has been slowly worsening over the last few days. Patient has been diuresed for volume overload. He has received Lasix on and off, although not on a regular schedule. Overall respiratory status is better. Patient has been voiding; a post-void residual was not elevated previously. On examination today, blood pressure was 117/63, heart rate 60 per minute. He is afebrile. Examination of the lower extremities shows decreased edema. Chronic skin changes noted. CABLE COVERER exam grossly intact. Lungs and heart are not examined. Labs show sodium 134, potassium 4.8, chloride 108, CO2 16, BUN 66, creatinine 1.96, hemoglobin 9.5 g/dL. ASSESSMENT: 1. Acute kidney injury, acute tubular necrosis and cardiorenal syndrome, status post diuresis, currently not on any Lasix. No nephrotoxic agents on board. Patient also has COVID pneumonia, which is adding to the acute kidney injury as well. Blood pressure is not significantly low now. I will add parameters to the Coreg and we will repeat a post-void residual. It was previously not elevated. Continue off of IV fluids. 2. Metabolic acidosis associated with renal failure. Add oral sodium bicarb. 3. Hypertension; blood pressure on the lower side. Add parameters on the Coreg. 4. COVID pneumonia. Chest x-ray continues to show bilateral opacities. Oxygen saturations about 95% on 5 L nasal cannula. PLAN: Add oral sodium bicarb. Continue off of IV fluids. Repeat labs in a.m. and add parameters on the Coreg. MMODL / IJN: [id number] /
--- NOTE | 2021-02-07 13:58 | P.PN ---
Subjective Progress Note Date: 02/05/21 Principal diagnosis: Acuet COVID 19 This is a pleasant 70 years old male with past medical history of Atrial Fibrillation on xarelto, Asthma, Heart Failure, COPD, Deep Vein Thrombosis , GERD, Hypertension, Osteoarthritis, s/p recent AAA surgery, liver cirrhosis, hepatitis C treated 3 times, CKD stage III, anemia, thrombocytopenia, pancytopenia-pt recently saw Dr. Matthews, pt states recently told he has diabetes, numbness R lower leg, chronic gout bilateral feet, chronic low back pain, cervical pain Heart Catheterization With Stent. He is a patient of Dr. Mena. His card iologist is Dr. Gooden, web press roll tender Dr. Post and GI Dr. Palomares whom he have not been seen for more than a year. Daughter at bedside Patient presents because of worsening dyspnea for the last 2 weeks that more severe over the last few days associated with dry hacking cough. With on and off central lower anterior chest pain, nonradiating felt like sharp last between 10-30 minutes before it recurs again. Currently his with no chest pain while talking to him. Also he has diarrhea and watery twice per day but no abdominal pain or vomiting. He denies smoking, alcohol or illicit drugs. On admission patient has been afebrile, blood pressure on the low side currently is 90/60. Patient is saturating 95% and a 3 L oxygen via nasal cannula, at room air was 93% CBC showing pancytopenia with WBC 1.2, hemoglobin 12.8 and platelet count 30. INR is 1.1, d-dimer elevated at 3.9. Sodium was low at 125-126, baseline sodium 132-135 Elevated creatinine 2.0 and 2.4 compared to baseline of 1.5-1.8 Elevated troponin 0.04 and 0.03 Liver enzymes elevated. D-dimer is elevated at 3.9 ProBNP is normal at 359. Coronavirus is detected EKG showing atrial fibrillation with a rate of 93 and QTC 437. Chest x-ray: No acute cardiopulmonary process per Patient does not receive aspirin or blood thinners in the emergency room 02/02/2021 Patient sitting up in bed today, less respiratory distress, more comfortable looking. However patient is still tachypneic. He remains on 3 L oxygen via nasal cannula WC improved up to 3.4 and platelet count increased up to 40 out is still recommended to keep holding Xarelto per hematology team. Sodium improved to 133. Creatinine improved since slightly 2.4 down to 2.1. TSH is normal at 0.5. Patient recommended to keep him off IV fluids and to continue encouraging oral hydration. Continue with dexamethasone, vitamin C, vitamin D and zinc. Resume Coreg 02/03/2021 Due to the hospital due to acute COVID-19 infection Patient is currently resting in the bed. Currently requiring oxygen at 3 L via nasal cannula. Patient is also being treated for community-acquired pneumonia. Patient is being continued on dexamethasone. Laboratory showed WBC four 2.7 hemoglobin 12.6 and platelets 40 Sodium 135 potassium 4.1 chloride 109 bicarb is 19 BUN 54 and creatinine 1.78. Patient is Xarelto due to chronic atrial fibrillation. Xarelto is on hold due to thrombocytopenia. Cardiology and pulmonary is on board. Patient otherwise denied any complaints of chest pain or shortness of breath. No nausea vomiting abdominal pain. No diarrhea. No fever no chills. 02/04/2021 Patient is currently resting in the bed. Awake alert and oriented x3. Requiring oxygen at 4 L via nasal cannula. Patient is being continued dexamethasone and multivitamins and neck Xarelto is on hold due to thrombocytopenia No petechial rash. No evidence of bleeding. Denied any chest pain or shortness of. No cough or sputum production. Patient has been afebrile. No headache or dizziness or lightheadedness. Laboratory data showed WBC 2.5 hemoglobin 13.0 and platelets 39 BUN 54 and creat inine 1.76 Cardiology and pulmonary is on board. 02-24 Patient is currently resting in the bed. No complaints of chest pain. Patient status worsened overnight and was given a dose of IV Lasix. Patient was also wheezing. Started on IV Solu-Medrol. No complaints of cough or sputum production. No nausea vomiting or abdominal pain or diarrhea. Patient is feeling better today. Otherwise patient will be weak. PT will be consulted. Laboratory data showed WBC 2.1 hemoglobin 12.8 and platelets 40, sodium 1:30, potassium 4.3 BUN 54 and creatinine 1.66. Cardiology pulmonary and nephrology is on board. Current medications reviewed. Objective - Vital Signs Vital signs: Vital Signs Temp 96.9 F L 02/05/21 12:00 Pulse 72 02/05/21 14:00 Resp 22 02/05/21 14:00 BP 110/66 02/05/21 12:00 Pulse Ox 96 02/05/21 12:00 Intake & Output 02/04/21 02/05/21 02/05/21 18:59 06:59 18:59 Intake Total 360 240 240 Output Total 350 950 250 Balance 10 -710 -10 Weight 140 kg Intake: Oral 360 240 240 Output: Urine 350 950 250 Other: Voiding Method Toilet Toilet Toilet Urinal Urinal Urinal # Bowel Movements 1 - Exam - Exam GENERAL: The patient is alert and oriented x3, not in any acute distress. Well developed, well nourished. HEENT: Pupils are round and equally reacting to light. EOMI. No scleral icterus. No conjunctival pallor. Normocephalic, atraumatic. No pharyngeal erythema. No thyromegaly. CARDIOVASCULAR: S1 and S2 present. No murmurs, rubs, or gallops. -PULMONARY: Scattered rhonchi., no wheezing or crackles. Mild prolongation of expiratory phase. Nonlabored breathing. ABDOMEN: Soft, nontender, nondistended, normoactive bowel sounds. No palpable organomegaly. MUSCULOSKELETAL: No joint swelling or deformity. EXTREMITIES: No cyanosis, clubbing, or pedal edema. NEUROLOGICAL: Gross neurological examination did not reveal any focal deficits. SKIN: No rashes. No petechiae - Labs CBC & Chem 7: 02/07/21 10:39 02/07/21 10:39 Labs: Abnormal Lab Results - Last 24 Hours (Table) 02/05/21 02/05/21 02/05/21 Range/Units 05:49 07:02 07:02 WBC 2.1 L (3.8-10.6) k/uL RBC 3.53 L (4.30-5.90) m/uL Hgb 12.8 L (13.0-17.5) gm/dL Hct 37.3 L (39.0-53.0) % MCV 105.5 H (80.0-100.0) fL MCH 36.2 H (25.0-35.0) pg Plt Count 40 L (150-450) k/uL Lymphocytes # 0.2 L (1.0-4.8) k/uL Sodium 135 L (137-145) mmol/L Chloride 110 H (98-107) mmol/L Carbon Dioxide 19 L (22-30) mmol/L BUN 54 H (9-20) mg/dL Creatinine 1.66 H (0.66-1.25) mg/dL Glucose 252 H (74-99) mg/dL POC Glucose (mg/dL) 271 H (75-99) mg/dL Calcium 7.9 L (8.4-10.2) mg/dL 02/05/21 Range/Units 11:37 WBC (3.8-10.6) k/uL RBC (4.30-5.90) m/uL Hgb (13.0-17.5) gm/dL Hct (39.0-53.0) % MCV (80.0-100.0) fL MCH (25.0-35.0) pg Plt Count (150-450) k/uL Lymphocytes # (1.0-4.8) k/uL Sodium (137-145) mmol/L Chloride (98-107) mmol/L Carbon Dioxide (22-30) mmol/L BUN (9-20) mg/dL Creatinine (0.66-1.25) mg/dL Glucose (74-99) mg/dL POC Glucose (mg/dL) 240 H (75-99) mg/dL Calcium (8.4-10.2) mg/dL Microbiology - Last 24 Hours (Table) 01/31/21 21:00 Blood Culture - Preliminary Blood No Growth after 96 hours 01/31/21 21:00 Blood Culture - Preliminary Blood No Growth after 96 hours Assessment and Plan Assessment: COVID-19 infection with no significant evidence of pneumonia on the chest x-ray Acute hypoxic respiratory failure Elevated troponin, associated with recurrent central chest pain ruled out cardiac causes acute kidney disease on chronic kidney disease Chronic Atrial Fibrillation on xarelto Chronic heart failure Diarrhea Chronic Liver cirrhosis/hep C CKD, stage III Hyponatremia History of coronary artery disease status post stent History of pancytopenia History of asthma/COPD History of deep venous thrombosis History of GERD History of osteoarthritis History of recent AAA surgery History of hepatitis C treated 3 Chronic back pain and neck pain History of gout History of chronic numbness of the right lower leg Morbid obesity with BMI 43.4 Plan: This is a pleasant 70 years old male who presents with elevated troponin, mild A. fib, covid infection and pancytopenia Continue with multiple vitamins, vitamin C, vitamin D and zinc Consulted hematology team for pancytopenia. Keep holding Xarelto Continue with steroids and vitamins. Monitor oxygen level Patient be continued on IV Lasix. Labs and medication were reviewed. Monitor lytes and vitals. DVT and GI prophylaxis. DVT prophylaxis no Anticoagulation in view of severe thrombocytopenia GI Prophylaxis: Ppi PT/OT: Pending Prognosis is guarded Time with Patient: Greater than 30
--- NOTE | 2021-02-07 14:01 | P.PN ---
Subjective Progress Note Date: 02/06/21 Principal diagnosis: Acuet COVID 19 This is a pleasant 70 years old male with past medical history of Atrial Fibrillation on xarelto, Asthma, Heart Failure, COPD, Deep Vein Thrombosis , GERD, Hypertension, Osteoarthritis, s/p recent AAA surgery, liver cirrhosis, hepatitis C treated 3 times, CKD stage III, anemia, thrombocytopenia, pancytopenia-pt recently saw Dr. Matthews, pt states recently told he has diabetes, numbness R lower leg, chronic gout bilateral feet, chronic low back pain, cervical pain Heart Catheterization With Stent. He is a patient of Dr. Mena. His card iologist is Dr. Gooden, chief legal officer Dr. Post and GI Dr. Palomares whom he have not been seen for more than a year. Daughter at bedside Patient presents because of worsening dyspnea for the last 2 weeks that more severe over the last few days associated with dry hacking cough. With on and off central lower anterior chest pain, nonradiating felt like sharp last between 10-30 minutes before it recurs again. Currently his with no chest pain while talking to him. Also he has diarrhea and watery twice per day but no abdominal pain or vomiting. He denies smoking, alcohol or illicit drugs. On admission patient has been afebrile, blood pressure on the low side currently is 90/60. Patient is saturating 95% and a 3 L oxygen via nasal cannula, at room air was 93% CBC showing pancytopenia with WBC 1.2, hemoglobin 12.8 and platelet count 30. INR is 1.1, d-dimer elevated at 3.9. Sodium was low at 125-126, baseline sodium 132-135 Elevated creatinine 2.0 and 2.4 compared to baseline of 1.5-1.8 Elevated troponin 0.04 and 0.03 Liver enzymes elevated. D-dimer is elevated at 3.9 ProBNP is normal at 359. Coronavirus is detected EKG showing atrial fibrillation with a rate of 93 and QTC 437. Chest x-ray: No acute cardiopulmonary process per Patient does not receive aspirin or blood thinners in the emergency room 02/02/2021 Patient sitting up in bed today, less respiratory distress, more comfortable looking. However patient is still tachypneic. He remains on 3 L oxygen via nasal cannula WC improved up to 3.4 and platelet count increased up to 40 out is still recommended to keep holding Xarelto per hematology team. Sodium improved to 133. Creatinine improved since slightly 2.4 down to 2.1. TSH is normal at 0.5. Patient recommended to keep him off IV fluids and to continue encouraging oral hydration. Continue with dexamethasone, vitamin C, vitamin D and zinc. Resume Coreg 02/03/2021 Due to the hospital due to acute COVID-19 infection Patient is currently resting in the bed. Currently requiring oxygen at 3 L via nasal cannula. Patient is also being treated for community-acquired pneumonia. Patient is being continued on dexamethasone. Laboratory showed WBC four 2.7 hemoglobin 12.6 and platelets 40 Sodium 135 potassium 4.1 chloride 109 bicarb is 19 BUN 54 and creatinine 1.78. Patient is Xarelto due to chronic atrial fibrillation. Xarelto is on hold due to thrombocytopenia. Cardiology and pulmonary is on board. Patient otherwise denied any complaints of chest pain or shortness of breath. No nausea vomiting abdominal pain. No diarrhea. No fever no chills. 02/04/2021 Patient is currently resting in the bed. Awake alert and oriented x3. Requiring oxygen at 4 L via nasal cannula. Patient is being continued dexamethasone and multivitamins and neck Xarelto is on hold due to thrombocytopenia No petechial rash. No evidence of bleeding. Denied any chest pain or shortness of. No cough or sputum production. Patient has been afebrile. No headache or dizziness or lightheadedness. Laboratory data showed WBC 2.5 hemoglobin 13.0 and platelets 39 BUN 54 and creat inine 1.76 Cardiology and pulmonary is on board. 02-24 Patient is currently resting in the bed. No complaints of chest pain. Patient status worsened overnight and was given a dose of IV Lasix. Patient was also wheezing. Started on IV Solu-Medrol. No complaints of cough or sputum production. No nausea vomiting or abdominal pain or diarrhea. Patient is feeling better today. Otherwise patient will be weak. PT will be consulted. Laboratory data showed WBC 2.1 hemoglobin 12.8 and platelets 40, sodium 1:30, potassium 4.3 BUN 54 and creatinine 1.66. Cardiology pulmonary and nephrology is on board. 02/06/2021 Patient is sitting in a chair comfortably. Awake alert and oriented. Still is lethargic and weak. Denied any complaints of chest pain or worsening shortness of breath. Patient is on IV steroids and breathing treatments. Also on Lasix. No complaints of nausea vomiting or abdominal pain or diarrhea. Xarelto is on hold due to thrombocytopenia. Laboratory data showed WBC count 2.6 hemoglobin 13.1 and platelets 43,000 BUN 57 and creatinine 1.83. Chest x-ray showed bilateral increased opacities in the mid to lower lungs consistent with COVID-19 infection. Current medications reviewed. Objective - Vital Signs Vital signs: Vital Signs Temp 97.5 F L 02/06/21 20:25 Pulse 62 02/06/21 20:25 Resp 20 02/06/21 20:25 BP 127/65 02/06/21 20:25 Pulse Ox 94 L 02/06/21 20:25 Intake & Output 02/06/21 02/06/21 02/07/21 06:59 18:59 06:59 Output Total 725 275 225 Balance -725 -275 -225 Weight 137.5 kg Output: Urine 725 275 225 Stool 0 Other: Voiding Method Toilet Urinal - Exam - Exam GENERAL: The patient is alert and oriented x3, not in any acute distress. Well developed, well nourished. HEENT: Pupils are round and equally reacting to light. EOMI. No scleral icterus. No conjunctival pallor. Normocephalic, atraumatic. No pharyngeal erythema. No thyromegaly. CARDIOVASCULAR: S1 and S2 present. No murmurs, rubs, or gallops. -PULMONARY: Scattered rhonchi., no wheezing or crackles. Mild prolongation of expiratory phase. Nonlabored breathing. ABDOMEN: Soft, nontender, nondistended, normoactive bowel sounds. No palpable organomegaly. MUSCULOSKELETAL: No joint swelling or deformity. EXTREMITIES: No cyanosis, clubbing, or pedal edema. NEUROLOGICAL: Gross neurological examination did not reveal any focal deficits. SKIN: No rashes. No petechiae - Labs CBC & Chem 7: 02/07/21 10:39 02/07/21 10:39 Labs: Abnormal Lab Results - Last 24 Hours (Table) 02/06/21 02/06/21 02/06/21 Range/Units 06:11 08:45 08:45 WBC 2.6 L (3.8-10.6) k/uL RBC 3.58 L (4.30-5.90) m/uL Hct 37.7 L (39.0-53.0) % MCV 105.3 H (80.0-100.0) fL MCH 36.7 H (25.0-35.0) pg Plt Count 43 L (150-450) k/uL Lymphocytes # 0.2 L (1.0-4.8) k/uL Sodium 136 L (137-145) mmol/L Chloride 111 H (98-107) mmol/L Carbon Dioxide 17 L (22-30) mmol/L BUN 57 H (9-20) mg/dL Creatinine 1.83 H (0.66-1.25) mg/dL Glucose 240 H (74-99) mg/dL POC Glucose (mg/dL) 237 H (75-99) mg/dL Calcium 8.1 L (8.4-10.2) mg/dL 02/06/21 02/06/21 Range/Units 11:42 16:48 WBC (3.8-10.6) k/uL RBC (4.30-5.90) m/uL Hct (39.0-53.0) % MCV (80.0-100.0) fL MCH (25.0-35.0) pg Plt Count (150-450) k/uL Lymphocytes # (1.0-4.8) k/uL Sodium (137-145) mmol/L Chloride (98-107) mmol/L Carbon Dioxide (22-30) mmol/L BUN (9-20) mg/dL Creatinine (0.66-1.25) mg/dL Glucose (74-99) mg/dL POC Glucose (mg/dL) 226 H 325 H (75-99) mg/dL Calcium (8.4-10.2) mg/dL Microbiology - Last 24 Hours (Table) 01/31/21 21:00 Blood Culture - Preliminary Blood No Growth after 120 hours 01/31/21 21:00 Blood Culture - Preliminary Blood No Growth after 120 hours Assessment and Plan Assessment: COVID-19 infection with no significant evidence of pneumonia on the chest x-ray Acute hypoxic respiratory failure Elevated troponin, associated with recurrent central chest pain ruled out cardiac causes acute kidney disease on chronic kidney disease. Due to ATN and cardiorenal syndrome. Was on IV Lasix. Metabolic acidosis due to acute kidney injury Chronic Atrial Fibrillation on xarelto Chronic heart failure Diarrhea Chronic Liver cirrhosis/hep C CKD, stage III Hyponatremia History of coronary artery disease status post stent History of pancytopenia History of asthma/COPD History of deep venous thrombosis History of GERD History of osteoarthritis History of recent AAA surgery History of hepatitis C treated 3 Chronic back pain and neck pain History of gout History of chronic numbness of the right lower leg Morbid obesity with BMI 43.4 Plan: This is a pleasant 70 years old male who presents with elevated troponin, mild A. fib, covid infection and pancytopenia Continue with multiple vitamins, vitamin C, vitamin D and zinc Consulted hematology team for pancytopenia. Keep holding Xarelto Continue with steroids and vitamins. Monitor oxygen level IV Lasix has been discontinued. IV fluids on hold as well. Labs and medication were reviewed. Monitor lytes and vitals. DVT and GI prophylaxis. DVT prophylaxis no Anticoagulation in view of severe thrombocytopenia GI Prophylaxis: Ppi PT/OT: Pending Prognosis is guarded Time with Patient: Greater than 30
--- NOTE | 2021-02-07 14:50 | P.PN ---
Subjective Progress Note Date: 02/07/21 This is a 70-year-old male patient follows with Dr. Mena as his primary care provider. He has a history of chronic obstructive pulmonary disease, previous tobacco dependence, atrial fibrillation anticoagulation with Xarelto, gastroesophageal reflux disease, hypertension pancytopenia, liver cirrhosis, occasional alcohol use, marijuana use. The patient presented here to the emergency room last evening with a two-week history of shortness of breath with worsening dyspnea on exertion. He's had a poor appetite. He has not been eating much the last several days. White count 1.2. Hemoglobin 12.8. Platelet count 30,000. INR 1.2. D-dimer 3.90. Sodium 126. Potassium 3.6. Creatinine 2.40. Glucose 178. Troponin 0.042, 0.043, 0.038. LDH 778. Pro-calcitonin 0.26. Current virus by PCR positive. X-ray revealed no acute pulmonary process. He is currently maintaining O2 saturations in the mid 90s on 3 L/m per nasal cannula. He is seen in consultation in the emergency room. He is awake and alert. He is dyspneic with minimal exertion. He is 95% O2 saturation currently. He's been afebrile. He's been initiated on Decadron, vitamin supplements, continued on his Xarelto. On today's evaluation of 02/02/2021, the patient is being seen for a follow-up. As noted, the patient has multiple medical problems and comorbidities. The patient has chronic hepatitis C and secondary liver cirrhosis with pancytopenia and splenomegaly. The patient also has chronic systolic heart failure with an ejection fraction of 40-45%, chronic atrial fibrillation, history of alcoholism, COPD and chronic stage III to for kidney disease. The patient is coming in for COVID-19 related symptoms including generalized weakness and hyponatremia and the patient also has been short of breath. Chest x-ray is not showing clear indication for pneumonia. The patient was started on Decadron. The patient was seen by nephrology. Diuretics were held and the patient was given gentle hydration and sodium levels being monitored. He remains on 3 L of oxygen by nasal cannula. The blood work from today shows improvement in the sodium level which is up to 133. The rest of the blood work shows a white cell count of 3.4 with a hemoglobin of 13.4, he had a platelet count of 30 and we are waiting for the follow-up counseling and the patient is on long-term anticoagulation with Xarelto which is currently still active on his list. The creatinine is improved and is down to 2.1. Serum bicarb is at 18. BUN is at 55. On 02/03/2021, the patient remains on 3 L of oxygen by nasal cannula. He is being seen today seen in follow-up. He is got multiple medical problems and comorbidities including liver cirrhosis and previous history of hepatitis C. He has also cardiomyopathy, chronic atrial fibrillation, COPD, chronic stage III kidney disease and alcoholism. For now, the patient is being treated for community related pneumonia. The patient is on Decadron. The blood work from today reveals a white cell count of 2.7 and the patient is chronically leukopenic. Platelet count isn't currently at 40. The creatinine is improving is currently down to 1.78 and a serum bicarbonate of 19 with a gap of 7 and the sodium level of 135. Stool for C. diff has been negative. TSH level was at 0.5. Patient has no specific complaints otherwise for now. The patient is resting comfortably in bed. It's possible that the patient can wean down on his FiO2. Tolerating diet. No nausea or vomiting. No signs of any bleeding. 02/04/2021, the patient reports that his breathing is stable. No interval worse sri in shortness of breath. He remains on 3 L. His condition is otherwise unchanged. He is a bit weak and debilitated. He has multiple medical problems and comorbidities. On his blood work today, the patient has a white cell count of 2.5 with a hemoglobin of 13 and a platelet count of 39. All of these values are stable compared to earlier numbers. Creatinine is down to 1.76 with a mean of 54 and a sodium level of 137. No other abnormal findings on his blood work. The patient remains on treatment and the patient is currently receiving Decadron 6 mg by mouth daily. He is off anticoagulation as his platelet counts are less than 50. No other significant interval change. 02/05/2021 I'm seeing the patient for a follow-up. Overnight, the patient has some increased shortness of breath and his oxygen requirements went up. I initially given a dose of Lasix 40 mg IV. He had limited diuresis. Following that, he was noted to be increasing to bronchospastic and wheezy. For that rosalba son, the patient was started on IV Solu-Medrol. Clinically is feeling better. Less focused spastic and wheezy on today's evaluation. No significant sputum production for now. The patient has a white cell count of 2.4 with a hemoglobin of 4.8 which is essentially comparable to yesterday. Platelet count remains low at 40. Creatinine is 1.6 with a BUN 54 Sodium level of 135. At this point in time, the patient is on 5 L about 2 by nasal cannula. His afebrile. 02/06/2021, the patient remains somewhat bronchospastic and wheezy on oxygen at 6 L to maintain a saturation around 96%. He is a poor historian. Doesn't communicate a whole lot. His breathing is not labored on today's evaluation. No significant chest pain. No shortness of breath according to him. He is afebrile. Continues to be on IV Solu-Medrol. I opted to keep the IV Solu Medrol as the patient become bronchospastic and wheezy during the course of his illness. His sugars at 226. He is taking guaifenesin for cough and congestion. He is also on Ventolin HFA 2 puffs 4 times a day. Rest of the medication remains unchanged and the patient is also on Lovenox 40 mg subcu for DVT prophylaxis. He is known to have COPD. He is also known to have a chronic atrial fibrillation and he has chronic thrombocytopenia and he was taken off the Xarelto for now due to his platelet counts being under 50. On 02/07/2021, the patient remains on 6 L of oxygen by nasal cannula. Oxygen can be essentially weaned off. He is able to sit up on a recliner. Doing well. No specific complaint. Tolerating diet. Less focused spastic and wheezy compared to earlier evaluations. The patient remains on IV Solu Medrol. He remains on albuterol HFA 4 times a day. He remains also on Lovenox 40 medical subcu for DVT prophylaxis. No new complaints for now. I plan to stop the IV Solu-Medrol. The patient prednisone burst taper. He is condition is stable. No new labs are available from today. Blood sugar is elevated essentially related to steroid use. Objective - Vital Signs Vital signs: Vital Signs Temp 98.2 F 02/07/21 09:53 Pulse 57 L 02/07/21 12:41 Resp 20 02/07/21 12:41 BP 131/70 02/07/21 12:41 Pulse Ox 94 L 02/07/21 12:41 Intake & Output 02/06/21 02/07/21 02/07/21 18:59 06:59 18:59 Intake Total 360 480 Output Total 275 450 125 Balance -275 -90 355 Weight 137 kg Intake: Oral 360 480 Output: Urine 275 450 125 Stool 0 0 Other: Voiding Method Toilet Urinal - Exam GENERAL EXAM: Alert, doesn't 70 year old gentleman, on 6 L nasal cannula, comfortable in no apparent distress. HEAD: Normocephalic. EYES: Normal reaction of pupils, equal size. NOSE: Clear with pink turbinates. THROAT: No erythema or exudates. NECK: No masses, no JVD. CHEST: No chest wall deformity. LUNGS: Equal air entry with no crackles, wheeze, rhonchi or dullness. Diminished. CVS: S1 and S2 normal with no audible murmur, regular rhythm. ABDOMEN: No hepatosplenomegaly, normal bowel sounds, no guarding or rigidity. SPINE: No scoliosis or deformity SKIN: No rashes CENTRAL NERVOUS SYSTEM: No focal deficits, tone is normal in all 4 extremities. EXTREMITIES: There is no peripheral edema. No clubbing, no cyanosis. Peripheral pulses are intact. - Labs CBC & Chem 7: 02/07/21 10:39 02/07/21 10:39 Labs: Abnormal Lab Results - Last 24 Hours (Table) 02/06/21 02/07/21 02/07/21 Range/Units 16:48 06:17 06:22 WBC (3.8-10.6) k/uL RBC (4.30-5.90) m/uL MCV (80.0-100.0) fL MCH (25.0-35.0) pg Plt Count (150-450) k/uL Lymphocytes # (1.0-4.8) k/uL Sodium (137-145) mmol/L Chloride (98-107) mmol/L Carbon Dioxide (22-30) mmol/L BUN (9-20) mg/dL Creatinine (0.66-1.25) mg/dL Glucose (74-99) mg/dL POC Glucose (mg/dL) 325 H 133 H 217 H (75-99) mg/dL Calcium (8.4-10.2) mg/dL 02/07/21 02/07/21 02/07/21 Range/Units 10:39 10:39 11:38 WBC 2.5 L (3.8-10.6) k/uL RBC 3.70 L (4.30-5.90) m/uL MCV 107.8 H (80.0-100.0) fL MCH 36.4 H (25.0-35.0) pg Plt Count 39 L (150-450) k/uL Lymphocytes # 0.2 L (1.0-4.8) k/uL Sodium 134 L (137-145) mmol/L Chloride 108 H (98-107) mmol/L Carbon Dioxide 16 L (22-30) mmol/L BUN 66 H (9-20) mg/dL Creatinine 1.96 H (0.66-1.25) mg/dL Glucose 331 H (74-99) mg/dL POC Glucose (mg/dL) 353 H (75-99) mg/dL Calcium 7.9 L (8.4-10.2) mg/dL Microbiology - Last 24 Hours (Table) 01/31/21 21:00 Blood Culture - Final Blood No Growth after 144 hours 01/31/21 21:00 Blood Culture - Final Blood No Growth after 144 hours Assessment and Plan Plan: 1 COVID-19 infection with secondary generalized weakness and fatigue along with a component of hyponatremia contributing to the patient's symptoms. Not vaccinated. Outside the window for Remdesivir. The patient is currently stable on 6 L of oxygen by nasal cannula. During the course of the illness, the patient COPD exacerbated and the patient is currently on IV Solu Medrol. Feeling well and 6 L about 2 by nasal cannula. Repeat chest x-ray from today shows bilateral opacities in the mid lower lung field consistent with COVID 19 infection. The patient is currently on 5 L of oxygen by nasal cannula. The patient was also on IV Solu Medrol. 2 Acute hypoxic respiratory failure secondary to acute COVID-19 infection. The patient has been weaned down to 5 L of oxygen by nasal cannula. 3 chronic liver cirrhosis/ HCV 4 Hyponatremia, improved 5 chronic kidney disease stage 3-4 the creatinine is improved compared to cassy velasquez, the acute kidney injury is also improving 6 Pancytopenia, known history of, possibly component of chronic liver disease/cirrhosis as the patient has chronic leukopenia and has underlying splen omegaly, the patient also has chronic thrombocytopenia 7 Chronic atrial fibrillation, anticoagulated with Xarelto 8 Splenomegaly 9 Chronic obstructive pulmonary disease 10 History of chronic tobacco dependence 11 non-anion gap metabolic acidosis, serum bicarb is currently at 20 and the kidney function is also improving and the creatinine is down to 1.76 and the patient has a serum bicarb of 20 with anion gap of 9. 12 troponin leak 13 chronic systolic heart failure with ejection fraction 40-45% Plan Continue bronchodilators. Continued IV Solu Medrol start the patient prednisone burst taper Repeat labs for tomorrow Repeat chest x-ray from today shows stable bilateral opacities in the mid lower lung navarro bilaterally, unchanged consistent with COVID 19 related pneumonia.This chest x-ray was done on 02/06/2021 and shows stable findings. Awaiting the FiO2 as tolerated to maintain a saturation above 90%, condition is stable on Decadron and the patient has no worsening in her oxygenation. Monitor the platelet count , the patient's chronic thrombocytopenia, and recommend holding Xarelto if there is further drop in the platelet count < 50 Continue vitamin supplements We'll keep Xarelto on hold as long as the platelet count is less than 50 and keep the patient on Lovenox 40 mg subcu for DVT prophylaxis. The platelet Counts are stable for now and the patient has not seen any signs of bleeding Involve physical therapy and consider inpatient rehabilitation specially above-mentioned comorbidities.The patient was able to sit up on a recliner today. His condition is stable. Monitor renal function. We will continue to follow and make further recommendations based on his clinical status
[2021-02-07 16:48] LABS: Glucose,Whole Blood 311 mg/dL (75-99)
[2021-02-07 20:55] LABS: Glucose,Whole Blood 328 mg/dL (75-99)
[2021-02-07] MEDS: INSULIN DETEMIR (LEVEMIR) 100 UNIT/ML SYR SQ SCH (21:09)
[2021-02-07] MEDS: allopurinoL 100 MG TAB PO SCH (21:09)
[2021-02-07 21:12] LABS: Glucose,Whole Blood 284 mg/dL (75-99)
[2021-02-08] MEDS: SODIUM CHLORIDE 0.9% 500 ML 500 ML IV SCH ×2 (00:34→22:58)
[2021-02-08 06:23] LABS: Glucose,Whole Blood 200 mg/dL (75-99)
[2021-02-08] MEDS: PANTOPRAZOLE 40 MG TABLET PO SCH (06:23)
[2021-02-08] MEDS: carvediloL 6.25 MG TAB PO SCH ×2 (06:23→17:16)
[2021-02-08 08:40] LABS: Glucose,Whole Blood 201 mg/dL (75-99)
[2021-02-08] MEDS: ASCORBIC ACID 500 MG TAB PO SCH (08:42)
[2021-02-08] MEDS: FOLIC ACID 1 MG TAB PO SCH (08:42)
[2021-02-08] MEDS: predniSONE 20 MG TAB PO SCH (08:42)
[2021-02-08] MEDS: CHOLECALCIFEROL 125 MCG (5000 IU) TABLET PO SCH (08:42)
[2021-02-08] MEDS: ZINC SULFATE 220 MG CAP PO SCH (08:42)
[2021-02-08] MEDS: CYANOCOBALAMIN 500 MCG TAB PO SCH (08:42)
[2021-02-08] MEDS: ENOXAPARIN 40 MG/0.4 ML SYRINGE SQ SCH (08:43)
[2021-02-08] MEDS: INSULIN ASPART (NovoLOG) 100 UNIT/ML VIAL SQ SCH ×7 (08:56→21:00)
[2021-02-08] MEDS: ALBUTEROL HFA INHALER INHALATION SCH ×4 (10:53→21:05)
[2021-02-08 11:24] LABS: Glucose,Whole Blood 213 mg/dL (75-99)
[2021-02-08] MEDS: THIAMINE 100 MG TAB PO SCH (12:36)
--- NOTE | 2021-02-08 13:23 | PN ---
PROGRESS NOTE Patient is seen for followup for acute kidney injury on top of chronic kidney disease, the patient is being treated for COVID pneumonia. He also developed volume overload and has received IV Lasix on and off. He is currently comfortable, states he is feeling better. Serum creatinine was slightly higher at 1.9 from previous reading of about 1.7-1.6 mg/dL. Previous creatinine has been at 1.7-1.5 in March and July of 2020. PHYSICAL EXAMINATION: On examination today, blood pressure 133/70, heart rate 64 per minute. Patient is afebrile. Examination of the lower extremities shows no significant edema. Abdomen is soft, nontender, obese. ACCOUNTING PRACTICE MANAGER exam shows patient is moving all 4 extremities. LABS: Not available from today. Blood work on February 07 show sodium 134, potassium 4.8, BUN 66, serum creatinine 1.9, chloride 108, CO2 is 16. ASSESSMENT: 1. Acute kidney injury, acute tubular necrosis currently nonoliguric although reported urine output is low. I am not sure if all the urine output has been charted. Check labs today. 2. Metabolic acidosis associated with renal failure. Add sodium bicarb. 3. Volume overload, currently improved. Repeat chest x-ray can be ordered for tomorrow. 4. COVID pneumonia. 5. Hypertension. Blood pressure had been slightly on the lower side. 6. Chronic kidney disease with previous creatinine 1.5-1.7 mg/dL in March and July of 2020. Etiology is nephrosclerosis. UA is completely benign. 7. Hypovolemic hyponatremia on initial admission, currently improved. PLAN: Add oral sodium bicarb. Check labs today and monitor urine output accurately. Repeat chest x-ray in a.m. MMODL / IJN: [id number] /
[2021-02-08] MEDS: SODIUM BICARBONATE TAB 650 MG TAB PO SCH ×2 (13:35→21:00)
[2021-02-08 13:38] LABS: Potassium 4.8 mmol/L (3.5-5.1)
--- NOTE | 2021-02-08 15:23 | P.PN ---
Subjective Progress Note Date: 02/08/21 This is a 70-year-old male patient follows with Dr. Mena as his primary care provider. He has a history of chronic obstructive pulmonary disease, previous tobacco dependence, atrial fibrillation anticoagulation with Xarelto, gastroesophageal reflux disease, hypertension pancytopenia, liver cirrhosis, occasional alcohol use, marijuana use. The patient presented here to the emergency room last evening with a two-week history of shortness of breath with worsening dyspnea on exertion. He's had a poor appetite. He has not been eating much the last several days. White count 1.2. Hemoglobin 12.8. Platelet count 30,000. INR 1.2. D-dimer 3.90. Sodium 126. Potassium 3.6. Creatinine 2.40. Glucose 178. Troponin 0.042, 0.043, 0.038. LDH 778. Pro-calcitonin 0.26. Current virus by PCR positive. X-ray revealed no acute pulmonary process. He is currently maintaining O2 saturations in the mid 90s on 3 L/m per nasal cannula. He is seen in consultation in the emergency room. He is awake and alert. He is dyspneic with minimal exertion. He is 95% O2 saturation currently. He's been afebrile. He's been initiated on Decadron, vitamin supplements, continued on his Xarelto. On today's evaluation of 02/02/2021, the patient is being seen for a follow-up. As noted, the patient has multiple medical problems and comorbidities. The patient has chronic hepatitis C and secondary liver cirrhosis with pancytopenia and splenomegaly. The patient also has chronic systolic heart failure with an ejection fraction of 40-45%, chronic atrial fibrillation, history of alcoholism, COPD and chronic stage III to for kidney disease. The patient is coming in for COVID-19 related symptoms including generalized weakness and hyponatremia and the patient also has been short of breath. Chest x-ray is not showing clear indication for pneumonia. The patient was started on Decadron. The patient was seen by nephrology. Diuretics were held and the patient was given gentle hydration and sodium levels being monitored. He remains on 3 L of oxygen by nasal cannula. The blood work from today shows improvement in the sodium level which is up to 133. The rest of the blood work shows a white cell count of 3.4 with a hemoglobin of 13.4, he had a platelet count of 30 and we are waiting for the follow-up counseling and the patient is on long-term anticoagulation with Xarelto which is currently still active on his list. The creatinine is improved and is down to 2.1. Serum bicarb is at 18. BUN is at 55. On 02/03/2021, the patient remains on 3 L of oxygen by nasal cannula. He is being seen today seen in follow-up. He is got multiple medical problems and comorbidities including liver cirrhosis and previous history of hepatitis C. He has also cardiomyopathy, chronic atrial fibrillation, COPD, chronic stage III kidney disease and alcoholism. For now, the patient is being treated for community related pneumonia. The patient is on Decadron. The blood work from today reveals a white cell count of 2.7 and the patient is chronically leukopenic. Platelet count isn't currently at 40. The creatinine is improving is currently down to 1.78 and a serum bicarbonate of 19 with a gap of 7 and the sodium level of 135. Stool for C. diff has been negative. TSH level was at 0.5. Patient has no specific complaints otherwise for now. The patient is resting comfortably in bed. It's possible that the patient can wean down on his FiO2. Tolerating diet. No nausea or vomiting. No signs of any bleeding. 02/04/2021, the patient reports that his breathing is stable. No interval worse sri in shortness of breath. He remains on 3 L. His condition is otherwise unchanged. He is a bit weak and debilitated. He has multiple medical problems and comorbidities. On his blood work today, the patient has a white cell count of 2.5 with a hemoglobin of 13 and a platelet count of 39. All of these values are stable compared to earlier numbers. Creatinine is down to 1.76 with a mean of 54 and a sodium level of 137. No other abnormal findings on his blood work. The patient remains on treatment and the patient is currently receiving Decadron 6 mg by mouth daily. He is off anticoagulation as his platelet counts are less than 50. No other significant interval change. 02/05/2021 I'm seeing the patient for a follow-up. Overnight, the patient has some increased shortness of breath and his oxygen requirements went up. I initially given a dose of Lasix 40 mg IV. He had limited diuresis. Following that, he was noted to be increasing to bronchospastic and wheezy. For that rosalba son, the patient was started on IV Solu-Medrol. Clinically is feeling better. Less focused spastic and wheezy on today's evaluation. No significant sputum production for now. The patient has a white cell count of 2.4 with a hemoglobin of 4.8 which is essentially comparable to yesterday. Platelet count remains low at 40. Creatinine is 1.6 with a BUN 54 Sodium level of 135. At this point in time, the patient is on 5 L about 2 by nasal cannula. His afebrile. 02/06/2021, the patient remains somewhat bronchospastic and wheezy on oxygen at 6 L to maintain a saturation around 96%. He is a poor historian. Doesn't communicate a whole lot. His breathing is not labored on today's evaluation. No significant chest pain. No shortness of breath according to him. He is afebrile. Continues to be on IV Solu-Medrol. I opted to keep the IV Solu Medrol as the patient become bronchospastic and wheezy during the course of his illness. His sugars at 226. He is taking guaifenesin for cough and congestion. He is also on Ventolin HFA 2 puffs 4 times a day. Rest of the medication remains unchanged and the patient is also on Lovenox 40 mg subcu for DVT prophylaxis. He is known to have COPD. He is also known to have a chronic atrial fibrillation and he has chronic thrombocytopenia and he was taken off the Xarelto for now due to his platelet counts being under 50. On 02/07/2021, the patient remains on 6 L of oxygen by nasal cannula. Oxygen can be essentially weaned off. He is able to sit up on a recliner. Doing well. No specific complaint. Tolerating diet. Less focused spastic and wheezy compared to earlier evaluations. The patient remains on IV Solu Medrol. He remains on albuterol HFA 4 times a day. He remains also on Lovenox 40 medical subcu for DVT prophylaxis. No new complaints for now. I plan to stop the IV Solu-Medrol. The patient prednisone burst taper. He is condition is stable. No new labs are available from today. Blood sugar is elevated essentially related to steroid use. 02/08/2021, the patient is doing well. He is on 6 L of oxygen by nasal cannula. On a prednisone burst taper. Resting comfortably in bed. No new complaints. No interval worsening in his oxygenation. The patient's electrolytes show a serum bicarb of 18 with a sodium level of 134. Urinalysis 62 with a creatinine of 1.68. Note that his kidney function is improved compared to earlier evaluation. The patient was sent home from yesterday was 2.5 with a hemoglobin of 13.5. Platelet count was still low at 39. He remains on prednisone. He also remains on Lovenox for DVT prophylaxis 40 mg subcu every 24 hours. No anticoagulants are being utilized based on his underlying chronic thrombocytopenia. The patient remains on Levemir 30 units at bedtime in addition to sliding scale coverage. He is also on oral bicarb started today 650 mg by mouth twice a day. Objective - Vital Signs Vital signs: Vital Signs Temp 98.1 F 02/08/21 12:33 Pulse 64 02/08/21 14:00 Resp 20 02/08/21 14:00 BP 134/68 02/08/21 12:33 Pulse Ox 93 L 02/08/21 12:33 Intake & Output 02/07/21 02/08/21 02/08/21 18:59 06:59 18:59 Intake Total 480 118 Output Total 625 475 Balance -145 -357 Weight 137.5 kg Intake: Oral 480 118 Output: Urine 625 475 Stool 0 Other: Voiding Method Toilet Toilet Urinal Urinal # Voids 200 - Exam GENERAL EXAM: Alert, doesn't 70 year old gentleman, on 6 L nasal cannula, comf ortable in no apparent distress. HEAD: Normocephalic. EYES: Normal reaction of pupils, equal size. NOSE: Clear with pink turbinates. THROAT: No erythema or exudates. NECK: No masses, no JVD. CHEST: No chest wall deformity. LUNGS: Equal air entry with no crackles, wheeze, rhonchi or dullness. Dimini shed. CVS: S1 and S2 normal with no audible murmur, regular rhythm. ABDOMEN: No hepatosplenomegaly, normal bowel sounds, no guarding or rigidity. SPINE: No scoliosis or deformity SKIN: No rashes CENTRAL NERVOUS SYSTEM: No focal deficits, tone is normal in all 4 extremities. EXTREMITIES: There is no peripheral edema. No clubbing, no cyanosis. Peripheral pulses are intact. - Labs CBC & Chem 7: 02/07/21 10:39 02/08/21 13:13 Labs: Abnormal Lab Results - Last 24 Hours (Table) 02/07/21 02/07/21 02/07/21 Range/Units 16:47 20:06 21:10 Sodium (137-145) mmol/L Chloride (98-107) mmol/L Carbon Dioxide (22-30) mmol/L BUN (9-20) mg/dL Creatinine (0.66-1.25) mg/dL Glucose (74-99) mg/dL POC Glucose (mg/dL) 311 H 328 H 284 H (75-99) mg/dL Calcium (8.4-10.2) mg/dL 02/08/21 02/08/21 02/08/21 Range/Units 06:12 08:38 11:22 Sodium (137-145) mmol/L Chloride (98-107) mmol/L Carbon Dioxide (22-30) mmol/L BUN (9-20) mg/dL Creatinine (0.66-1.25) mg/dL Glucose (74-99) mg/dL POC Glucose (mg/dL) 200 H 201 H 213 H (75-99) mg/dL Calcium (8.4-10.2) mg/dL 02/08/21 Range/Units 13:13 Sodium 134 L (137-145) mmol/L Chloride 108 H (98-107) mmol/L Carbon Dioxide 18 L (22-30) mmol/L BUN 62 H (9-20) mg/dL Creatinine 1.68 H (0.66-1.25) mg/dL Glucose 209 H (74-99) mg/dL POC Glucose (mg/dL) (75-99) mg/dL Calcium 8.0 L (8.4-10.2) mg/dL Assessment and Plan Plan: 1 COVID-19 infection with secondary generalized weakness and fatigue along with a component of hyponatremia contributing to the patient's symptoms. Not vaccinated. Outside the window for Remdesivir. The patient is currently stable on 6 L of oxygen by nasal cannula. During the course of the illness, the patient COPD exacerbated and the patient is currently on IV Solu Medrol. Feeling well and 6 L about 2 by nasal cannula. Repeat chest x-ray from today s hows bilateral opacities in the mid lower lung field consistent with COVID 19 infection. The patient is currently on 5 L of oxygen by nasal cannula. The patient is currently on a prednisone burst taper starting with 40 mg by mouth daily. This was started for treatment of his COPD exacerbation and COVID 19 infection. Oxygenation remains stable at 5 L of oxygen by nasal cannula without any signs of respiratory distress. 2 Acute hypoxic respiratory failure secondary to acute COVID-19 infection. The patient has been weaned down to 5 L of oxygen by nasal cannula. 3 chronic liver cirrhosis/ HCV 4 Hyponatremia, improved 5 chronic kidney disease stage 3-4 the creatinine is improved compared to yesterday, the acute kidney injury is also improving 6 Pancytopenia, known history of, possibly component of chronic liver disease/cirrhosis as the patient has chronic leukopenia and has underlying splenomegaly, the patient also has chronic thrombocytopenia 7 Chronic atrial fibrillation, anticoagulated with Xarelto 8 Splenomegaly 9 Chronic obstructive pulmonary disease 10 History of chronic tobacco dependence 11 non-anion gap metabolic acidosis, serum bicarb is currently at 20 and the kidney function is also improving and the creatinine is down to 1.76 and the patient has a serum bicarb of 20 with anion gap of 9. 12 troponin leak 13 chronic systolic heart failure with ejection fraction 40-45% Plan Continue bronchodilators. Continued prednisone Repeat labs were noted and the patient was started on oral bicarbonate Repeat chest x-ray from today shows stable bilateral opacities in the mid lower lung navarro bilaterally, unchanged consistent with COVID 19 related pneumonia.Th is chest x-ray was done on 02/06/2021 and shows stable findings. Awaiting the FiO2 as tolerated to maintain a saturation above 90%, condition is stable on Decadron and the patient has no worsening in her oxygenation. Monitor the platelet count , the patient's chronic thrombocytopenia, and recommend holding Xarelto if there is further drop in the platelet count < 50 Continue vitamin supplements We'll keep Xarelto on hold as long as the platelet count is less than 50 and keep the patient on Lovenox 40 mg subcu for DVT prophylaxis. The platelet Counts are stable for now and the patient has not seen any signs of bleeding Involve physical therapy and consider inpatient rehabilitation specially above- mentioned comorbidities.The patient was able to sit up on a recliner today. His condition is stable. Monitor renal function. We will continue to follow and make further recommendations based on his clinical status
[2021-02-08 16:27] LABS: Glucose,Whole Blood 210 mg/dL (75-99)
[2021-02-08 17:11] LABS: Glucose,Whole Blood 198 mg/dL (75-99)
[2021-02-08 19:59] LABS: Glucose,Whole Blood 159 mg/dL (75-99)
[2021-02-08] MEDS: allopurinoL 100 MG TAB PO SCH (21:00)
[2021-02-08] MEDS: INSULIN DETEMIR (LEVEMIR) 100 UNIT/ML SYR SQ SCH (21:01)
--- NOTE | 2021-02-08 22:28 | P.PN ---
Subjective Progress Note Date: 02/07/21 Principal diagnosis: Acuet COVID 19 This is a pleasant 70 years old male with past medical history of Atrial Fibrillation on xarelto, Asthma, Heart Failure, COPD, Deep Vein Thrombosis , GERD, Hypertension, Osteoarthritis, s/p recent AAA surgery, liver cirrhosis, hepatitis C treated 3 times, CKD stage III, anemia, thrombocytopenia, pancytopenia-pt recently saw Dr. Matthews, pt states recently told he has diabetes, numbness R lower leg, chronic gout bilateral feet, chronic low back pain, cervical pain Heart Catheterization With Stent. He is a patient of Dr. Mena. His card iologist is Dr. Gooden, math coach Dr. Post and GI Dr. Palomares whom he have not been seen for more than a year. Daughter at bedside Patient presents because of worsening dyspnea for the last 2 weeks that more severe over the last few days associated with dry hacking cough. With on and off central lower anterior chest pain, nonradiating felt like sharp last between 10-30 minutes before it recurs again. Currently his with no chest pain while talking to him. Also he has diarrhea and watery twice per day but no abdominal pain or vomiting. He denies smoking, alcohol or illicit drugs. On admission patient has been afebrile, blood pressure on the low side currently is 90/60. Patient is saturating 95% and a 3 L oxygen via nasal cannula, at room air was 93% CBC showing pancytopenia with WBC 1.2, hemoglobin 12.8 and platelet count 30. INR is 1.1, d-dimer elevated at 3.9. Sodium was low at 125-126, baseline sodium 132-135 Elevated creatinine 2.0 and 2.4 compared to baseline of 1.5-1.8 Elevated troponin 0.04 and 0.03 Liver enzymes elevated. D-dimer is elevated at 3.9 ProBNP is normal at 359. Coronavirus is detected EKG showing atrial fibrillation with a rate of 93 and QTC 437. Chest x-ray: No acute cardiopulmonary process per Patient does not receive aspirin or blood thinners in the emergency room 02/02/2021 Patient sitting up in bed today, less respiratory distress, more comfortable looking. However patient is still tachypneic. He remains on 3 L oxygen via nasal cannula WC improved up to 3.4 and platelet count increased up to 40 out is still recommended to keep holding Xarelto per hematology team. Sodium improved to 133. Creatinine improved since slightly 2.4 down to 2.1. TSH is normal at 0.5. Patient recommended to keep him off IV fluids and to continue encouraging oral hydration. Continue with dexamethasone, vitamin C, vitamin D and zinc. Resume Coreg 02/03/2021 Due to the hospital due to acute COVID-19 infection Patient is currently resting in the bed. Currently requiring oxygen at 3 L via nasal cannula. Patient is also being treated for community-acquired pneumonia. Patient is being continued on dexamethasone. Laboratory showed WBC four 2.7 hemoglobin 12.6 and platelets 40 Sodium 135 potassium 4.1 chloride 109 bicarb is 19 BUN 54 and creatinine 1.78. Patient is Xarelto due to chronic atrial fibrillation. Xarelto is on hold due to thrombocytopenia. Cardiology and pulmonary is on board. Patient otherwise denied any complaints of chest pain or shortness of breath. No nausea vomiting abdominal pain. No diarrhea. No fever no chills. 02/04/2021 Patient is currently resting in the bed. Awake alert and oriented x3. Requiring oxygen at 4 L via nasal cannula. Patient is being continued dexamethasone and multivitamins and neck Xarelto is on hold due to thrombocytopenia No petechial rash. No evidence of bleeding. Denied any chest pain or shortness of. No cough or sputum production. Patient has been afebrile. No headache or dizziness or lightheadedness. Laboratory data showed WBC 2.5 hemoglobin 13.0 and platelets 39 BUN 54 and creat inine 1.76 Cardiology and pulmonary is on board. 02-24 Patient is currently resting in the bed. No complaints of chest pain. Patient status worsened overnight and was given a dose of IV Lasix. Patient was also wheezing. Started on IV Solu-Medrol. No complaints of cough or sputum production. No nausea vomiting or abdominal pain or diarrhea. Patient is feeling better today. Otherwise patient will be weak. PT will be consulted. Laboratory data showed WBC 2.1 hemoglobin 12.8 and platelets 40, sodium 1:30, potassium 4.3 BUN 54 and creatinine 1.66. Cardiology pulmonary and nephrology is on board. 02/06/2021 Patient is sitting in a chair comfortably. Awake alert and oriented. Still is lethargic and weak. Denied any complaints of chest pain or worsening shortness of breath. Patient is on IV steroids and breathing treatments. Also on Lasix. No complaints of nausea vomiting or abdominal pain or diarrhea. Xarelto is on hold due to thrombocytopenia. Laboratory data showed WBC count 2.6 hemoglobin 13.1 and platelets 43,000 BUN 57 and creatinine 1.83. Chest x-ray showed bilateral increased opacities in the mid to lower lungs consistent with COVID-19 infection. 02/07/2021 Patient is currently lying in the bed. Awake alert and oriented. Still feels very weak and lethargic. Requiring oxygen at 6 L via nasal cannula. Patient is being continued on IV Solu-Medrol and Lovenox subcu. Patient was started on prednisone tapering course. Laboratory data: Sodium 134 potassium 4.8 chloride 108 BUN 66 and creatinine 1.96 and blood sugar is 231 WBC 2.5 hemoglobin 13.5 and platelets 39 and calcium 7.9 Patient is being continued on Levemir and insulin sliding scale. Current medications reviewed. Objective - Vital Signs Vital signs: Vital Signs Temp 98.2 F 02/07/21 09:53 Pulse 57 L 02/07/21 12:41 Resp 20 02/07/21 12:41 BP 131/70 02/07/21 12:41 Pulse Ox 94 L 02/07/21 12:41 Intake & Output 02/06/21 02/07/21 02/07/21 18:59 06:59 18:59 Intake Total 360 480 Output Total 275 450 125 Balance -275 -90 355 Weight 137 kg Intake: Oral 360 480 Output: Urine 275 450 125 Stool 0 0 Other: Voiding Method Toilet Urinal - Exam - Exam GENERAL: The patient is alert and oriented x3, not in any acute distress. Well developed, well nourished. HEENT: Pupils are round and equally reacting to light. EOMI. No scleral icterus. No conjunctival pallor. Normocephalic, atraumatic. No pharyngeal erythema. No thyromegaly. CARDIOVASCULAR: S1 and S2 present. No murmurs, rubs, or gallops. -PULMONARY: Scattered rhonchi., no wheezing or crackles. Mild prolongation of expiratory phase. Nonlabored breathing. ABDOMEN: Soft, nontender, nondistended, normoactive bowel sounds. No palpable organomegaly. MUSCULOSKELETAL: No joint swelling or deformity. EXTREMITIES: No cyanosis, clubbing, or pedal edema. NEUROLOGICAL: Gross neurological examination did not reveal any focal deficits. SKIN: No rashes. No petechiae - Labs CBC & Chem 7: 02/07/21 10:39 02/08/21 13:13 Labs: Abnormal Lab Results - Last 24 Hours (Table) 02/06/21 02/07/21 02/07/21 Range/Units 16:48 06:17 06:22 WBC (3.8-10.6) k/uL RBC (4.30-5.90) m/uL MCV (80.0-100.0) fL MCH (25.0-35.0) pg Plt Count (150-450) k/uL Lymphocytes # (1.0-4.8) k/uL Sodium (137-145) mmol/L Chloride (98-107) mmol/L Carbon Dioxide (22-30) mmol/L BUN (9-20) mg/dL Creatinine (0.66-1.25) mg/dL Glucose (74-99) mg/dL POC Glucose (mg/dL) 325 H 133 H 217 H (75-99) mg/dL Calcium (8.4-10.2) mg/dL 02/07/21 02/07/21 02/07/21 Range/Units 10:39 10:39 11:38 WBC 2.5 L (3.8-10.6) k/uL RBC 3.70 L (4.30-5.90) m/uL MCV 107.8 H (80.0-100.0) fL MCH 36.4 H (25.0-35.0) pg Plt Count 39 L (150-450) k/uL Lymphocytes # 0.2 L (1.0-4.8) k/uL Sodium 134 L (137-145) mmol/L Chloride 108 H (98-107) mmol/L Carbon Dioxide 16 L (22-30) mmol/L BUN 66 H (9-20) mg/dL Creatinine 1.96 H (0.66-1.25) mg/dL Glucose 331 H (74-99) mg/dL POC Glucose (mg/dL) 353 H (75-99) mg/dL Calcium 7.9 L (8.4-10.2) mg/dL Microbiology - Last 24 Hours (Table) 01/31/21 21:00 Blood Culture - Final Blood No Growth after 144 hours 01/31/21 21:00 Blood Culture - Final Blood No Growth after 144 hours Assessment and Plan Assessment: COVID-19 infection with no significant evidence of pneumonia on the chest x-ray Acute hypoxic respiratory failure Elevated troponin, associated with recurrent central chest pain ruled out card iac causes acute kidney disease on chronic kidney disease. Due to ATN and cardiorenal syndrome. Was on IV Lasix. Metabolic acidosis due to acute kidney injury Chronic Atrial Fibrillation on xarelto Chronic heart failure Diarrhea Chronic Liver cirrhosis/hep C CKD, stage III Hyponatremia History of coronary artery disease status post stent History of pancytopenia History of asthma/COPD History of deep venous thrombosis History of GERD History of osteoarthritis History of recent AAA surgery History of hepatitis C treated 3 Chronic back pain and neck pain History of gout History of chronic numbness of the right lower leg Morbid obesity with BMI 43.4 Plan: This is a pleasant 70 years old male who presents with elevated troponin, mild A. fib, covid infection and pancytopenia Continue with multiple vitamins, vitamin C, vitamin D and zinc Consulted hematology team for pancytopenia. Keep holding Xarelto Continue with steroids and vitamins. Monitor oxygen level IV Lasix has been discontinued. IV fluids on hold as well. Labs and medication were reviewed. Monitor lytes and vitals. DVT and GI prophylaxis. DVT prophylaxis no Anticoagulation in view of severe thrombocytopenia GI Prophylaxis: Ppi PT/OT: Pending Prognosis is guarded
--- NOTE | 2021-02-08 22:29 | P.PN ---
Subjective Progress Note Date: 02/08/21 Principal diagnosis: Acuet COVID 19 This is a pleasant 70 years old male with past medical history of Atrial Fibrillation on xarelto, Asthma, Heart Failure, COPD, Deep Vein Thrombosis , GERD, Hypertension, Osteoarthritis, s/p recent AAA surgery, liver cirrhosis, hepatitis C treated 3 times, CKD stage III, anemia, thrombocytopenia, pancytopenia-pt recently saw Dr. Matthews, pt states recently told he has diabetes, numbness R lower leg, chronic gout bilateral feet, chronic low back pain, cervical pain Heart Catheterization With Stent. He is a patient of Dr. Mena. His card iologist is Dr. Gooden, rn office Dr. Post and GI Dr. Palomares whom he have not been seen for more than a year. Daughter at bedside Patient presents because of worsening dyspnea for the last 2 weeks that more severe over the last few days associated with dry hacking cough. With on and off central lower anterior chest pain, nonradiating felt like sharp last between 10-30 minutes before it recurs again. Currently his with no chest pain while talking to him. Also he has diarrhea and watery twice per day but no abdominal pain or vomiting. He denies smoking, alcohol or illicit drugs. On admission patient has been afebrile, blood pressure on the low side currently is 90/60. Patient is saturating 95% and a 3 L oxygen via nasal cannula, at room air was 93% CBC showing pancytopenia with WBC 1.2, hemoglobin 12.8 and platelet count 30. INR is 1.1, d-dimer elevated at 3.9. Sodium was low at 125-126, baseline sodium 132-135 Elevated creatinine 2.0 and 2.4 compared to baseline of 1.5-1.8 Elevated troponin 0.04 and 0.03 Liver enzymes elevated. D-dimer is elevated at 3.9 ProBNP is normal at 359. Coronavirus is detected EKG showing atrial fibrillation with a rate of 93 and QTC 437. Chest x-ray: No acute cardiopulmonary process per Patient does not receive aspirin or blood thinners in the emergency room 02/02/2021 Patient sitting up in bed today, less respiratory distress, more comfortable looking. However patient is still tachypneic. He remains on 3 L oxygen via nasal cannula WC improved up to 3.4 and platelet count increased up to 40 out is still recommended to keep holding Xarelto per hematology team. Sodium improved to 133. Creatinine improved since slightly 2.4 down to 2.1. TSH is normal at 0.5. Patient recommended to keep him off IV fluids and to continue encouraging oral hydration. Continue with dexamethasone, vitamin C, vitamin D and zinc. Resume Coreg 02/03/2021 Due to the hospital due to acute COVID-19 infection Patient is currently resting in the bed. Currently requiring oxygen at 3 L via nasal cannula. Patient is also being treated for community-acquired pneumonia. Patient is being continued on dexamethasone. Laboratory showed WBC four 2.7 hemoglobin 12.6 and platelets 40 Sodium 135 potassium 4.1 chloride 109 bicarb is 19 BUN 54 and creatinine 1.78. Patient is Xarelto due to chronic atrial fibrillation. Xarelto is on hold due to thrombocytopenia. Cardiology and pulmonary is on board. Patient otherwise denied any complaints of chest pain or shortness of breath. No nausea vomiting abdominal pain. No diarrhea. No fever no chills. 02/04/2021 Patient is currently resting in the bed. Awake alert and oriented x3. Requiring oxygen at 4 L via nasal cannula. Patient is being continued dexamethasone and multivitamins and neck Xarelto is on hold due to thrombocytopenia No petechial rash. No evidence of bleeding. Denied any chest pain or shortness of. No cough or sputum production. Patient has been afebrile. No headache or dizziness or lightheadedness. Laboratory data showed WBC 2.5 hemoglobin 13.0 and platelets 39 BUN 54 and creat inine 1.76 Cardiology and pulmonary is on board. 02-24 Patient is currently resting in the bed. No complaints of chest pain. Patient status worsened overnight and was given a dose of IV Lasix. Patient was also wheezing. Started on IV Solu-Medrol. No complaints of cough or sputum production. No nausea vomiting or abdominal pain or diarrhea. Patient is feeling better today. Otherwise patient will be weak. PT will be consulted. Laboratory data showed WBC 2.1 hemoglobin 12.8 and platelets 40, sodium 1:30, potassium 4.3 BUN 54 and creatinine 1.66. Cardiology pulmonary and nephrology is on board. 02/06/2021 Patient is sitting in a chair comfortably. Awake alert and oriented. Still is lethargic and weak. Denied any complaints of chest pain or worsening shortness of breath. Patient is on IV steroids and breathing treatments. Also on Lasix. No complaints of nausea vomiting or abdominal pain or diarrhea. Xarelto is on hold due to thrombocytopenia. Laboratory data showed WBC count 2.6 hemoglobin 13.1 and platelets 43,000 BUN 57 and creatinine 1.83. Chest x-ray showed bilateral increased opacities in the mid to lower lungs consistent with COVID-19 infection. 02/07/2021 Patient is currently lying in the bed. Awake alert and oriented. Still feels very weak and lethargic. Requiring oxygen at 6 L via nasal cannula. Patient is being continued on IV Solu-Medrol and Lovenox subcu. Patient was started on prednisone tapering course. Laboratory data: Sodium 134 potassium 4.8 chloride 108 BUN 66 and creatinine 1.96 and blood sugar is 231 WBC 2.5 hemoglobin 13.5 and platelets 39 and calcium 7.9 Patient is being continued on Levemir and insulin sliding scale. 02/08/2021 Patient is currently lying in the bed. Awake alert and oriented x3. Requiring oxygen 6 L via nasal cannula and is titrated down to 5 L today. No complaints of chest pain. Tolerating oral diet. Laboratory data showed sodium 134 potassium 4.8 BUN 62 and creatinine 1.68 and blood sugar is better controlled at 208. Continue with Levemir and insulin sliding scale. Patient is on prednisone tapering course and multivitamins and Lovenox subcu. Patient is also on sodium bicarbonate tablets due to metabolic acidosis secondary to acute kidney injury. Bicarb level is 18 today. Current medications reviewed. Objective - Vital Signs Vital signs: Vital Signs Temp 98.4 F 02/08/21 16:00 Pulse 69 02/08/21 16:00 Resp 22 02/08/21 16:00 BP 138/81 02/08/21 16:00 Pulse Ox 92 L 02/08/21 16:00 Intake & Output 02/08/21 02/08/21 02/09/21 06:59 18:59 06:59 Intake Total 118 Output Total 725 Balance -607 Weight 137.5 kg Intake: Oral 118 Output: Urine 725 Other: Voiding Method Toilet Urinal # Voids 200 # Bowel Movements 1 - Exam - Exam GENERAL: The patient is alert and oriented x3, not in any acute distress. Well developed, well nourished. HEENT: Pupils are round and equally reacting to light. EOMI. No scleral icterus. No conjunctival pallor. Normocephalic, atraumatic. No pharyngeal erythema. No thyromegaly. CARDIOVASCULAR: S1 and S2 present. No murmurs, rubs, or gallops. -PULMONARY: Scattered rhonchi., no wheezing or crackles. Mild prolongation of expiratory phase. Nonlabored breathing. ABDOMEN: Soft, nontender, nondistended, normoactive bowel sounds. No palpable organomegaly. MUSCULOSKELETAL: No joint swelling or deformity. EXTREMITIES: No cyanosis, clubbing, or pedal edema. NEUROLOGICAL: Gross neurological examination did not reveal any focal deficits. SKIN: No rashes. No petechiae - Labs CBC & Chem 7: 02/07/21 10:39 02/08/21 13:13 Labs: Abnormal Lab Results - Last 24 Hours (Table) 02/08/21 02/08/21 02/08/21 Range/Units 06:12 08:38 11:22 Sodium (137-145) mmol/L Chloride (98-107) mmol/L Carbon Dioxide (22-30) mmol/L BUN (9-20) mg/dL Creatinine (0.66-1.25) mg/dL Glucose (74-99) mg/dL POC Glucose (mg/dL) 200 H 201 H 213 H (75-99) mg/dL Calcium (8.4-10.2) mg/dL 02/08/21 02/08/21 02/08/21 Range/Units 13:13 16:25 17:08 Sodium 134 L (137-145) mmol/L Chloride 108 H (98-107) mmol/L Carbon Dioxide 18 L (22-30) mmol/L BUN 62 H (9-20) mg/dL Creatinine 1.68 H (0.66-1.25) mg/dL Glucose 209 H (74-99) mg/dL POC Glucose (mg/dL) 210 H 198 H (75-99) mg/dL Calcium 8.0 L (8.4-10.2) mg/dL 02/08/21 Range/Units 19:58 Sodium (137-145) mmol/L Chloride (98-107) mmol/L Carbon Dioxide (22-30) mmol/L BUN (9-20) mg/dL Creatinine (0.66-1.25) mg/dL Glucose (74-99) mg/dL POC Glucose (mg/dL) 159 H (75-99) mg/dL Calcium (8.4-10.2) mg/dL Assessment and Plan Assessment: COVID-19 infection with no significant evidence of pneumonia on the chest x-ray Acute hypoxic respiratory failure Elevated troponin, associated with recurrent central chest pain ruled out cardiac causes acute kidney disease on chronic kidney disease. Due to ATN and cardiorenal syndrome. Was on IV Lasix. Metabolic acidosis due to acute kidney injury Chronic Atrial Fibrillation on xarelto Chronic heart failure Diarrhea Chronic Liver cirrhosis/hep C CKD, stage III Hyponatremia History of coronary artery disease status post stent History of pancytopenia History of asthma/COPD History of deep venous thrombosis History of GERD History of osteoarthritis History of recent AAA surgery History of hepatitis C treated 3 Chronic back pain and neck pain History of gout History of chronic numbness of the right lower leg Morbid obesity with BMI 43.4 Plan: This is a pleasant 70 years old male who presents with elevated troponin, mild A. fib, covid infection and pancytopenia Continue with multiple vitamins, vitamin C, vitamin D and zinc Consulted hematology team for pancytopenia. Keep holding Xarelto Continue with steroids and vitamins. Monitor oxygen level IV Lasix has been discontinued. IV fluids on hold as well. Labs and medication were reviewed. Monitor lytes and vitals. DVT and GI prophylaxis. DVT prophylaxis no Anticoagulation in view of severe thrombocytopenia GI Prophylaxis: Ppi PT/OT: Pending Prognosis is guarded Time with Patient: Greater than 30
[2021-02-09] MEDS: INSULIN ASPART (NovoLOG) 100 UNIT/ML VIAL SQ SCH ×7 (06:48→21:00)
[2021-02-09] MEDS: PANTOPRAZOLE 40 MG TABLET PO SCH (06:49)
[2021-02-09] MEDS: carvediloL 6.25 MG TAB PO SCH ×2 (06:49→17:58)
[2021-02-09 07:04] LABS: Glucose,Whole Blood 188 mg/dL (75-99)
--- NOTE | 2021-02-09 07:16 | XR ---
EXAMINATION TYPE: XR chest 1V DATE OF EXAM: 02/09/2021 HISTORY: Shortness of breath. COMPARISON: 02/06/2021 TECHNIQUE: Single view of the chest is submitted. FINDINGS: Demonstrated are scattered senescent parenchymal change. Stable reticulonodular infiltrates greatest at the right lung base unchanged from prior study. The heart is stable. Hilar and mediastinal structures are within normal limits. Degenerative changes are seen of the dorsal spine. IMPRESSION: 1. Stable reticulonodular infiltrates greatest at the right lung base unchanged from prior study.
[2021-02-09] MEDS: ALBUTEROL HFA INHALER INHALATION SCH ×4 (09:07→19:39)
[2021-02-09] MEDS: ENOXAPARIN 40 MG/0.4 ML SYRINGE SQ SCH (09:39)
[2021-02-09] MEDS: ASCORBIC ACID 500 MG TAB PO SCH (09:40)
[2021-02-09] MEDS: CYANOCOBALAMIN 500 MCG TAB PO SCH (09:40)
[2021-02-09] MEDS: predniSONE 20 MG TAB PO SCH (09:40)
[2021-02-09] MEDS: CHOLECALCIFEROL 125 MCG (5000 IU) TABLET PO SCH (09:40)
[2021-02-09] MEDS: ZINC SULFATE 220 MG CAP PO SCH (09:40)
[2021-02-09] MEDS: FOLIC ACID 1 MG TAB PO SCH (09:40)
[2021-02-09] MEDS: SODIUM BICARBONATE TAB 650 MG TAB PO SCH ×3 (09:40→21:00)
[2021-02-09 10:07] LABS: Basophils % (A) 0 %; Eosinophils % (A) 0 %; HCT 42.9 % (39.0-53.0); HGB 14.3 gm/dL (13.0-17.5); Lymphocytes # (A) 0.2 k/uL (1.0-4.8); Lymphocytes % (A) 5 %; MCH 35.8 pg (25.0-35.0); MCHC 33.4 g/dL (31.0-37.0); Macrocytosis Moderate; Monocytes # (A) 0.2 k/uL (0-1.0); Monocytes % (A) 4 %; Neutrophils # (A) 4.1 k/uL (1.3-7.7); Neutrophils % (A) 90 %; RDW 14.2 % (11.5-15.5); WBC 4.5 k/uL (3.8-10.6)
[2021-02-09 10:32] LABS: Calcium 8.1 mg/dL (8.4-10.2); Potassium 4.9 mmol/L (3.5-5.1)
[2021-02-09 11:14] LABS: Platelet Count 40 k/uL (150-450)
--- NOTE | 2021-02-09 11:41 | P.PN ---
Subjective Patient is seen in follow-up for acute kidney injury on chronic kidney disease. Renal function stable. Hemodynamically stable. Has been voiding. No vomiting or diarrhea. Vital signs are stable. General: The patient appeared well nourished and normally developed. HEENT: Head exam is unremarkable. LUNGS: Breath sounds decreased. HEART: Rate and Rhythm are regular. ABDOMEN: Soft, no distention. EXTREMITITES: No edema. Objective - Vital Signs Vital signs: Vital Signs Temp 97.3 F L 02/09/21 09:40 Pulse 56 L 02/09/21 09:40 Resp 20 02/09/21 09:40 BP 124/60 02/09/21 09:40 Pulse Ox 93 L 02/09/21 09:40 Intake & Output 02/08/21 02/09/21 02/09/21 18:59 06:59 18:59 Intake Total 118 Output Total 725 550 425 Balance -607 -550 -425 Weight 136.5 kg Intake: Oral 118 Output: Urine 725 550 425 Stool 0 Other: Voiding Method Toilet Toilet Urinal Urinal # Bowel Movements 1 1 - Labs CBC & Chem 7: 02/09/21 08:42 02/09/21 08:42 Labs: Abnormal Lab Results - Last 24 Hours (Table) 02/08/21 02/08/21 02/08/21 Range/Units 13:13 16:25 17:08 RBC (4.30-5.90) m/uL MCV (80.0-100.0) fL MCH (25.0-35.0) pg Plt Count (150-450) k/uL Lymphocytes # (1.0-4.8) k/uL Sodium 134 L (137-145) mmol/L Chloride 108 H (98-107) mmol/L Carbon Dioxide 18 L (22-30) mmol/L BUN 62 H (9-20) mg/dL Creatinine 1.68 H (0.66-1.25) mg/dL Glucose 209 H (74-99) mg/dL POC Glucose (mg/dL) 210 H 198 H (75-99) mg/dL Calcium 8.0 L (8.4-10.2) mg/dL 02/08/21 02/09/21 02/09/21 Range/Units 19:58 06:43 08:42 RBC 4.00 L (4.30-5.90) m/uL MCV 107.0 H (80.0-100.0) fL MCH 35.8 H (25.0-35.0) pg Plt Count 40 L (150-450) k/uL Lymphocytes # 0.2 L (1.0-4.8) k/uL Sodium (137-145) mmol/L Chloride (98-107) mmol/L Carbon Dioxide (22-30) mmol/L BUN (9-20) mg/dL Creatinine (0.66-1.25) mg/dL Glucose (74-99) mg/dL POC Glucose (mg/dL) 159 H 188 H (75-99) mg/dL Calcium (8.4-10.2) mg/dL 02/09/21 Range/Units 08:42 RBC (4.30-5.90) m/uL MCV (80.0-100.0) fL MCH (25.0-35.0) pg Plt Count (150-450) k/uL Lymphocytes # (1.0-4.8) k/uL Sodium 135 L (137-145) mmol/L Chloride 109 H (98-107) mmol/L Carbon Dioxide 17 L (22-30) mmol/L BUN 58 H (9-20) mg/dL Creatinine 1.71 H (0.66-1.25) mg/dL Glucose 198 H (74-99) mg/dL POC Glucose (mg/dL) (75-99) mg/dL Calcium 8.1 L (8.4-10.2) mg/dL Assessment and Plan Plan: Assessment: 1. Acute kidney injury secondary to ATN secondary to COVID-19 infection. Creatinine peaked at 2.4 this admission and is stable at 1.71 today. UA benign. Right kidney atrophic. No hydronephrosis noted. 2. Chronic kidney disease stage IIIB with baseline creatinine near 1.5 secondary to diabetic kidney disease and nephrosclerosis. 3. Hypovolemic hyponatremia. Improved. 4. COVID-19 pneumonia. 5. Diabetes mellitus. 6. Metabolic acidosis secondary to acute kidney injury. On oral bicarbonate. 7. Liver cirrhosis. Plan: Encourage oral intake. Increase dose of oral bicarb. Avoid nephrotoxins. Continue to monitor renal function and urine output.
[2021-02-09 12:08] LABS: Glucose,Whole Blood 275 mg/dL (75-99)
[2021-02-09] MEDS: THIAMINE 100 MG TAB PO SCH (12:39)
[2021-02-09 17:07] LABS: Glucose,Whole Blood 156 mg/dL (75-99)
--- NOTE | 2021-02-09 18:20 | P.PN ---
Subjective Progress Note Date: 02/09/21 Principal diagnosis: Acute hypoxic respiratory failure secondary to COVID-19 pneumonia On 02/07/2021, the patient remains on 6 L of oxygen by nasal cannula. Oxygen can be essentially weaned off. He is able to sit up on a recliner. Doing well. No specific complaint. Tolerating diet. Less focused spastic and wheezy compared to earlier evaluations. The patient remains on IV Solu Medrol. He remains on albuterol HFA 4 times a day. He remains also on Lovenox 40 medical subcu for DVT prophylaxis. No new complaints for now. I plan to stop the IV Solu-Medrol. The patient prednisone burst taper. He is condition is stable. No new labs are available from today. Blood sugar is elevated essentially related to steroid use. 02/08/2021, the patient is doing well. He is on 6 L of oxygen by nasal cannula. On a prednisone burst taper. Resting comfortably in bed. No new complaints. No interval worsening in his oxygenation. The patient's electrolytes show a serum bicarb of 18 with a sodium level of 134. Urinalysis 62 with a creatinine of 1.68. Note that his kidney function is improved compared to earlier evaluation. The patient was sent home from yesterday was 2.5 with a hemoglobin of 13.5. Platelet count was still low at 39. He remains on prednisone. He also remains on Lovenox for DVT prophylaxis 40 mg subcu every 24 hours. No anticoagulants are being utilized based on his underlying chronic thrombocytopenia. The patient remains on Levemir 30 units at bedtime in addition to sliding scale coverage. He is also on oral bicarb started today 650 mg by mouth twice a day. Reevaluated today on 02/09/2021, patient remains on 5 L nasal cannula, O2 sats is 92%, feeling better overall, he has been titrated down from 6 L, ration is not in any distress, hence I will recommend possibly discharging the patient home on oxygen. Objective - Vital Signs Vital signs: Vital Signs Temp 97.3 F L 02/09/21 16:00 Pulse 68 02/09/21 16:00 Resp 20 02/09/21 16:00 BP 141/74 02/09/21 16:00 Pulse Ox 92 L 02/09/21 16:00 Intake & Output 02/08/21 02/09/21 02/09/21 18:59 06:59 18:59 Intake Total 118 180 Output Total 725 550 825 Balance -559 -427 -774 Weight 136.5 kg Intake: Oral 118 180 Output: Urine 725 550 825 Stool 0 Other: Voiding Method Toilet Toilet Urinal Urinal # Bowel Movements 1 1 - Exam Physical Exam HEENT: Revealed a 70-year-old white male in no distress. [No neck masses.] [No thyromegaly.] [No JVD.] Chest: [Symmetrical chest expansion crackles at the bases..] Cardiac Exam: [Normal S1 and S2, no S3 gallop, no murmur.] Abdomen: [Soft, nontender, no megaly, no rebound, no guarding, normal bowel sounds.] Extremities: [No clubbing, no edema, no cyanosis.] Neurological Exam: [No focal neurologic deficit.] Psychiatric: Normal mood affect and normal mental status examination. Skin: No rashes. - Labs CBC & Chem 7: 02/09/21 08:42 02/09/21 08:42 Labs: Abnormal Lab Results - Last 24 Hours (Table) 02/08/21 02/09/21 02/09/21 Range/Units 19:58 06:43 08:42 RBC 4.00 L (4.30-5.90) m/uL MCV 107.0 H (80.0-100.0) fL MCH 35.8 H (25.0-35.0) pg Plt Count 40 L (150-450) k/uL Lymphocytes # 0.2 L (1.0-4.8) k/uL Sodium (137-145) mmol/L Chloride (98-107) mmol/L Carbon Dioxide (22-30) mmol/L BUN (9-20) mg/dL Creatinine (0.66-1.25) mg/dL Glucose (74-99) mg/dL POC Glucose (mg/dL) 159 H 188 H (75-99) mg/dL Calcium (8.4-10.2) mg/dL 02/09/21 02/09/21 02/09/21 Range/Units 08:42 12:07 17:05 RBC (4.30-5.90) m/uL MCV (80.0-100.0) fL MCH (25.0-35.0) pg Plt Count (150-450) k/uL Lymphocytes # (1.0-4.8) k/uL Sodium 135 L (137-145) mmol/L Chloride 109 H (98-107) mmol/L Carbon Dioxide 17 L (22-30) mmol/L BUN 58 H (9-20) mg/dL Creatinine 1.71 H (0.66-1.25) mg/dL Glucose 198 H (74-99) mg/dL POC Glucose (mg/dL) 275 H 156 H (75-99) mg/dL Calcium 8.1 L (8.4-10.2) mg/dL Assessment and Plan Assessment: Impression: Acute hypoxic referral failure secondary to COVID-19 pneumonia, patient did not qualify for remdesivir Chronic liver cirrhosis Chronic atrial fibrillation History of pancytopenia Underlying COPD Tobacco dependence syndrome Chronic systolic congestive heart failure EF is 40%. Recommendation: Continue present treatment plan including bronchodilators, prednisone, diuretics, oral bicarb, COVID-19 cocktail, We will clear the patient to be discharged home on 5 L nasal cannula Follow-up on outpatient basis with Dr. Killian. Time with Patient: Less than 30
--- NOTE | 2021-02-09 20:01 | P.PN ---
Subjective Progress Note Date: 02/09/21 Principal diagnosis: covid, cytopenias Patient seen and examined this am, with Dr. Matthews. He is feeling better. No s/s bleeding hemoglobin and platelets have remained stable. Platelets are 40K today. In speaking with Nursing earlier, plan to continue xarelto after discharge as long as platelets are above 40K. Objective - Vital Signs Vital signs: Vital Signs Temp 97.3 F L 02/09/21 16:00 Pulse 68 02/09/21 16:00 Resp 20 02/09/21 16:00 BP 141/74 02/09/21 16:00 Pulse Ox 92 L 02/09/21 16:00 Intake & Output 02/09/21 02/09/21 02/10/21 06:59 18:59 06:59 Intake Total 180 Output Total 550 825 Balance -550 -645 Weight 136.5 kg Intake: Oral 180 Output: Urine 550 825 Stool 0 Other: Voiding Method Toilet Urinal # Bowel Movements 1 - Exam mild distress obese mild increase effort heart: tachy Ext edema Vesicular rimmed lesions inner thighs - Labs CBC & Chem 7: 02/09/21 08:42 02/09/21 08:42 Labs: Abnormal Lab Results - Last 24 Hours (Table) 02/08/21 02/09/21 02/09/21 Range/Units 19:58 06:43 08:42 RBC 4.00 L (4.30-5.90) m/uL MCV 107.0 H (80.0-100.0) fL MCH 35.8 H (25.0-35.0) pg Plt Count 40 L (150-450) k/uL Lymphocytes # 0.2 L (1.0-4.8) k/uL Sodium (137-145) mmol/L Chloride (98-107) mmol/L Carbon Dioxide (22-30) mmol/L BUN (9-20) mg/dL Creatinine (0.66-1.25) mg/dL Glucose (74-99) mg/dL POC Glucose (mg/dL) 159 H 188 H (75-99) mg/dL Calcium (8.4-10.2) mg/dL 02/09/21 02/09/21 02/09/21 Range/Units 08:42 12:07 17:05 RBC (4.30-5.90) m/uL MCV (80.0-100.0) fL MCH (25.0-35.0) pg Plt Count (150-450) k/uL Lymphocytes # (1.0-4.8) k/uL Sodium 135 L (137-145) mmol/L Chloride 109 H (98-107) mmol/L Carbon Dioxide 17 L (22-30) mmol/L BUN 58 H (9-20) mg/dL Creatinine 1.71 H (0.66-1.25) mg/dL Glucose 198 H (74-99) mg/dL POC Glucose (mg/dL) 275 H 156 H (75-99) mg/dL Calcium 8.1 L (8.4-10.2) mg/dL Assessment and Plan (1) COVID-19 Current Visit: Yes Status: Acute Code(s): U07.1 - COVID-19 SNOMED Code(s): 512358024 (2) Liver disease Current Visit: No Status: Acute Code(s): K76.9 - LIVER DISEASE, UNSPECIFIED SNOMED Code(s): 229927601 (3) Thrombocytopenia Current Visit: No Status: Acute Code(s): D69.6 - THROMBOCYTOPENIA, UNSPECIFIED SNOMED Code(s): 265399297 Plan: Hold Anticoagulation with platelet less than 50K Platelets are still less than 50K, no evidence of bleeding at this time. All other issues related to hospitalization per primary and pulmonary and ID teams Plan for discharge on xarelto for persistent a fib and goal platelets >40K. CBC in office . Patient is aware to call or go to emergency with signs of bleeding. Physician Attest:I have completed the full history and physical and agree with above dictation, dictated as a scribe.
[2021-02-09 20:32] LABS: Glucose,Whole Blood 211 mg/dL (75-99)
[2021-02-09] MEDS: allopurinoL 100 MG TAB PO SCH (21:00)
[2021-02-09] MEDS: INSULIN DETEMIR (LEVEMIR) 100 UNIT/ML SYR SQ SCH (21:00)
[2021-02-10] MEDS: SODIUM CHLORIDE 0.9% 500 ML 500 ML IV SCH (04:42)
[2021-02-10 06:19] LABS: Calcium 8.1 mg/dL (8.4-10.2); Magnesium 3.3 mg/dL (1.6-2.3)
[2021-02-10 06:50] LABS: Glucose,Whole Blood 110 mg/dL (75-99)
[2021-02-10] MEDS: INSULIN ASPART (NovoLOG) 100 UNIT/ML VIAL SQ SCH ×2 (06:51→09:58)
[2021-02-10] MEDS: PANTOPRAZOLE 40 MG TABLET PO SCH (06:54)
[2021-02-10] MEDS: carvediloL 6.25 MG TAB PO SCH (06:54)
--- NOTE | 2021-02-10 09:33 | P.PN ---
Subjective Patient is seen in follow-up for acute kidney injury on chronic kidney disease. Renal function stable. Hemodynamically stable. Has been voiding. No vomiting or diarrhea. Currently on 5 L nasal cannula. Vital signs are stable. General: The patient appeared well nourished and normally developed. HEENT: Head exam is unremarkable. LUNGS: Breath sounds decreased. HEART: Rate and Rhythm are regular. ABDOMEN: Soft, no distention. EXTREMITITES: Trace edema. Objective - Vital Signs Vital signs: Vital Signs Temp 97.3 F L 02/10/21 04:20 Pulse 60 02/10/21 04:20 Resp 21 02/10/21 04:20 BP 112/79 02/10/21 04:20 Pulse Ox 92 L 02/10/21 04:20 Intake & Output 02/09/21 02/10/21 02/10/21 18:59 06:59 18:59 Intake Total 180 240 Output Total 825 400 Balance -645 -400 240 Weight 137.5 kg Intake: Oral 180 240 Output: Urine 825 400 Stool 0 Other: Voiding Method Toilet Toilet Urinal Urinal # Bowel Movements 1 - Labs CBC & Chem 7: 02/09/21 08:42 02/10/21 05:32 Labs: Abnormal Lab Results - Last 24 Hours (Table) 02/09/21 02/09/21 02/09/21 Range/Units 08:42 08:42 12:07 RBC 4.00 L (4.30-5.90) m/uL MCV 107.0 H (80.0-100.0) fL MCH 35.8 H (25.0-35.0) pg Plt Count 40 L (150-450) k/uL Lymphocytes # 0.2 L (1.0-4.8) k/uL Sodium 135 L (137-145) mmol/L Chloride 109 H (98-107) mmol/L Carbon Dioxide 17 L (22-30) mmol/L BUN 58 H (9-20) mg/dL Creatinine 1.71 H (0.66-1.25) mg/dL Glucose 198 H (74-99) mg/dL POC Glucose (mg/dL) 275 H (75-99) mg/dL Calcium 8.1 L (8.4-10.2) mg/dL Magnesium (1.6-2.3) mg/dL 02/09/21 02/09/21 02/10/21 Range/Units 17:05 20:31 05:32 RBC (4.30-5.90) m/uL MCV (80.0-100.0) fL MCH (25.0-35.0) pg Plt Count (150-450) k/uL Lymphocytes # (1.0-4.8) k/uL Sodium (137-145) mmol/L Chloride 111 H (98-107) mmol/L Carbon Dioxide 21 L (22-30) mmol/L BUN 56 H (9-20) mg/dL Creatinine 1.65 H (0.66-1.25) mg/dL Glucose 108 H (74-99) mg/dL POC Glucose (mg/dL) 156 H 211 H (75-99) mg/dL Calcium 8.1 L (8.4-10.2) mg/dL Magnesium 3.3 H (1.6-2.3) mg/dL 02/10/21 Range/Units 06:49 RBC (4.30-5.90) m/uL MCV (80.0-100.0) fL MCH (25.0-35.0) pg Plt Count (150-450) k/uL Lymphocytes # (1.0-4.8) k/uL Sodium (137-145) mmol/L Chloride (98-107) mmol/L Carbon Dioxide (22-30) mmol/L BUN (9-20) mg/dL Creatinine (0.66-1.25) mg/dL Glucose (74-99) mg/dL POC Glucose (mg/dL) 110 H (75-99) mg/dL Calcium (8.4-10.2) mg/dL Magnesium (1.6-2.3) mg/dL Assessment and Plan Plan: Assessment: 1. Acute kidney injury secondary to ATN secondary to COVID-19 infection. Creatinine peaked at 2.4 this admission and is stable at 1.65 today. UA benign. Right kidney atrophic. No hydronephrosis noted. 2. Chronic kidney disease stage IIIB with baseline creatinine near 1.5 secondary to diabetic kidney disease and nephrosclerosis. 3. Hypovolemic hyponatremia. Improved. 4. COVID-19 pneumonia. 5. Diabetes mellitus. 6. Metabolic acidosis secondary to acute kidney injury. On oral bicarbonate. Better. 7. Liver cirrhosis. Plan: Encourage oral intake. Avoid nephrotoxins. Continue to monitor renal function and urine output.
[2021-02-10] MEDS: ALBUTEROL HFA INHALER INHALATION SCH (09:43)
[2021-02-10] MEDS: CYANOCOBALAMIN 500 MCG TAB PO SCH (10:08)
[2021-02-10] MEDS: ASCORBIC ACID 500 MG TAB PO SCH (10:08)
[2021-02-10] MEDS: ZINC SULFATE 220 MG CAP PO SCH (10:09)
[2021-02-10] MEDS: ENOXAPARIN 40 MG/0.4 ML SYRINGE SQ SCH (10:09)
[2021-02-10] MEDS: CHOLECALCIFEROL 125 MCG (5000 IU) TABLET PO SCH (10:09)
[2021-02-10] MEDS: SODIUM BICARBONATE TAB 650 MG TAB PO SCH (10:09)
[2021-02-10] MEDS: predniSONE 20 MG TAB PO SCH (10:09)
[2021-02-10] MEDS: FOLIC ACID 1 MG TAB PO SCH (10:09)
--- NOTE | 2021-02-10 10:11 | P.PN ---
Subjective Progress Note Date: 02/09/21 Principal diagnosis: Acuet COVID 19 This is a pleasant 70 years old male with past medical history of Atrial Fibrillation on xarelto, Asthma, Heart Failure, COPD, Deep Vein Thrombosis , GERD, Hypertension, Osteoarthritis, s/p recent AAA surgery, liver cirrhosis, hepatitis C treated 3 times, CKD stage III, anemia, thrombocytopenia, pancytopenia-pt recently saw Dr. Matthews, pt states recently told he has diabetes, numbness R lower leg, chronic gout bilateral feet, chronic low back pain, cervical pain Heart Catheterization With Stent. He is a patient of Dr. Mena. His card iologist is Dr. Gooden, cat hooker Dr. Post and GI Dr. Palomares whom he have not been seen for more than a year. Daughter at bedside Patient presents because of worsening dyspnea for the last 2 weeks that more severe over the last few days associated with dry hacking cough. With on and off central lower anterior chest pain, nonradiating felt like sharp last between 10-30 minutes before it recurs again. Currently his with no chest pain while talking to him. Also he has diarrhea and watery twice per day but no abdominal pain or vomiting. He denies smoking, alcohol or illicit drugs. On admission patient has been afebrile, blood pressure on the low side currently is 90/60. Patient is saturating 95% and a 3 L oxygen via nasal cannula, at room air was 93% CBC showing pancytopenia with WBC 1.2, hemoglobin 12.8 and platelet count 30. INR is 1.1, d-dimer elevated at 3.9. Sodium was low at 125-126, baseline sodium 132-135 Elevated creatinine 2.0 and 2.4 compared to baseline of 1.5-1.8 Elevated troponin 0.04 and 0.03 Liver enzymes elevated. D-dimer is elevated at 3.9 ProBNP is normal at 359. Coronavirus is detected EKG showing atrial fibrillation with a rate of 93 and QTC 437. Chest x-ray: No acute cardiopulmonary process per Patient does not receive aspirin or blood thinners in the emergency room 02/02/2021 Patient sitting up in bed today, less respiratory distress, more comfortable looking. However patient is still tachypneic. He remains on 3 L oxygen via nasal cannula WC improved up to 3.4 and platelet count increased up to 40 out is still recommended to keep holding Xarelto per hematology team. Sodium improved to 133. Creatinine improved since slightly 2.4 down to 2.1. TSH is normal at 0.5. Patient recommended to keep him off IV fluids and to continue encouraging oral hydration. Continue with dexamethasone, vitamin C, vitamin D and zinc. Resume Coreg 02/03/2021 Due to the hospital due to acute COVID-19 infection Patient is currently resting in the bed. Currently requiring oxygen at 3 L via nasal cannula. Patient is also being treated for community-acquired pneumonia. Patient is being continued on dexamethasone. Laboratory showed WBC four 2.7 hemoglobin 12.6 and platelets 40 Sodium 135 potassium 4.1 chloride 109 bicarb is 19 BUN 54 and creatinine 1.78. Patient is Xarelto due to chronic atrial fibrillation. Xarelto is on hold due to thrombocytopenia. Cardiology and pulmonary is on board. Patient otherwise denied any complaints of chest pain or shortness of breath. No nausea vomiting abdominal pain. No diarrhea. No fever no chills. 02/04/2021 Patient is currently resting in the bed. Awake alert and oriented x3. Requiring oxygen at 4 L via nasal cannula. Patient is being continued dexamethasone and multivitamins and neck Xarelto is on hold due to thrombocytopenia No petechial rash. No evidence of bleeding. Denied any chest pain or shortness of. No cough or sputum production. Patient has been afebrile. No headache or dizziness or lightheadedness. Laboratory data showed WBC 2.5 hemoglobin 13.0 and platelets 39 BUN 54 and creat inine 1.76 Cardiology and pulmonary is on board. 02-24 Patient is currently resting in the bed. No complaints of chest pain. Patient status worsened overnight and was given a dose of IV Lasix. Patient was also wheezing. Started on IV Solu-Medrol. No complaints of cough or sputum production. No nausea vomiting or abdominal pain or diarrhea. Patient is feeling better today. Otherwise patient will be weak. PT will be consulted. Laboratory data showed WBC 2.1 hemoglobin 12.8 and platelets 40, sodium 1:30, potassium 4.3 BUN 54 and creatinine 1.66. Cardiology pulmonary and nephrology is on board. 02/06/2021 Patient is sitting in a chair comfortably. Awake alert and oriented. Still is lethargic and weak. Denied any complaints of chest pain or worsening shortness of breath. Patient is on IV steroids and breathing treatments. Also on Lasix. No complaints of nausea vomiting or abdominal pain or diarrhea. Xarelto is on hold due to thrombocytopenia. Laboratory data showed WBC count 2.6 hemoglobin 13.1 and platelets 43,000 BUN 57 and creatinine 1.83. Chest x-ray showed bilateral increased opacities in the mid to lower lungs consistent with COVID-19 infection. 02/07/2021 Patient is currently lying in the bed. Awake alert and oriented. Still feels very weak and lethargic. Requiring oxygen at 6 L via nasal cannula. Patient is being continued on IV Solu-Medrol and Lovenox subcu. Patient was started on prednisone tapering course. Laboratory data: Sodium 134 potassium 4.8 chloride 108 BUN 66 and creatinine 1.96 and blood sugar is 231 WBC 2.5 hemoglobin 13.5 and platelets 39 and calcium 7.9 Patient is being continued on Levemir and insulin sliding scale. 02/08/2021 Patient is currently lying in the bed. Awake alert and oriented x3. Requiring oxygen 6 L via nasal cannula and is titrated down to 5 L today. No complaints of chest pain. Tolerating oral diet. Laboratory data showed sodium 134 potassium 4.8 BUN 62 and creatinine 1.68 and blood sugar is better controlled at 208. Continue with Levemir and insulin sliding scale. Patient is on prednisone tapering course and multivitamins and Lovenox subcu. Patient is also on sodium bicarbonate tablets due to metabolic acidosis secondary to acute kidney injury. Bicarb level is 18 today. 02/09/2021 Patient is currently lying in the bed. Awake alert and oriented 3. Requiring 5 L oxygen via nausea cannula. Home oxygen is being arranged. Otherwise patient denied any complaints of worsening shortness of breath. No complaints of chest pain. No nausea vomiting or abdominal pain or diarrhea. Tolerating oral diet. Laboratory data showed WBC 4.5, hemoglobin 14.3 and platelets 40,000. Hematology is okay to start back on xarelto once platelet count is greater than 40,000. Currently on Lovenox subcu. BUN 58 and creatinine 1.71. Nephrology and pulmonary is on board as well. Patient would like to be discharged home. Home health care is also being arranged. Current medications reviewed. Objective - Vital Signs Vital signs: Vital Signs Temp 97.3 F L 02/09/21 16:00 Pulse 68 02/09/21 16:00 Resp 20 02/09/21 16:00 BP 141/74 02/09/21 16:00 Pulse Ox 92 L 02/09/21 16:00 Intake & Output 02/09/21 02/09/21 02/10/21 06:59 18:59 06:59 Intake Total 180 Output Total 550 825 Balance -550 -645 Weight 136.5 kg Intake: Oral 180 Output: Urine 550 825 Stool 0 Other: Voiding Method Toilet Urinal # Bowel Movements 1 - Exam - Exam GENERAL: The patient is alert and oriented x3, not in any acute distress. Well developed, well nourished. HEENT: Pupils are round and equally reacting to light. EOMI. No scleral icterus. No conjunctival pallor. Normocephalic, atraumatic. No pharyngeal erythema. No thyromegaly. CARDIOVASCULAR: S1 and S2 present. No murmurs, rubs, or gallops. -PULMONARY: Scattered rhonchi., no wheezing or crackles. Mild prolongation of expiratory phase. Nonlabored breathing. ABDOMEN: Soft, nontender, nondistended, normoactive bowel sounds. No palpable organomegaly. MUSCULOSKELETAL: No joint swelling or deformity. EXTREMITIES: No cyanosis, clubbing, or pedal edema. NEUROLOGICAL: Gross neurological examination did not reveal any focal deficits. SKIN: No rashes. No petechiae - Labs CBC & Chem 7: 02/09/21 08:42 02/10/21 05:32 Labs: Abnormal Lab Results - Last 24 Hours (Table) 02/09/21 02/09/21 02/09/21 Range/Units 06:43 08:42 08:42 RBC 4.00 L (4.30-5.90) m/uL MCV 107.0 H (80.0-100.0) fL MCH 35.8 H (25.0-35.0) pg Plt Count 40 L (150-450) k/uL Lymphocytes # 0.2 L (1.0-4.8) k/uL Sodium 135 L (137-145) mmol/L Chloride 109 H (98-107) mmol/L Carbon Dioxide 17 L (22-30) mmol/L BUN 58 H (9-20) mg/dL Creatinine 1.71 H (0.66-1.25) mg/dL Glucose 198 H (74-99) mg/dL POC Glucose (mg/dL) 188 H (75-99) mg/dL Calcium 8.1 L (8.4-10.2) mg/dL 02/09/21 02/09/21 02/09/21 Range/Units 12:07 17:05 20:31 RBC (4.30-5.90) m/uL MCV (80.0-100.0) fL MCH (25.0-35.0) pg Plt Count (150-450) k/uL Lymphocytes # (1.0-4.8) k/uL Sodium (137-145) mmol/L Chloride (98-107) mmol/L Carbon Dioxide (22-30) mmol/L BUN (9-20) mg/dL Creatinine (0.66-1.25) mg/dL Glucose (74-99) mg/dL POC Glucose (mg/dL) 275 H 156 H 211 H (75-99) mg/dL Calcium (8.4-10.2) mg/dL Assessment and Plan Assessment: COVID-19 infection with no significant evidence of pneumonia on the chest x-ray Acute hypoxic respiratory failure. Currently requiring 5 L oxygen nasal cannula. Elevated troponin, associated with recurrent central chest pain ruled out cardiac causes acute kidney disease on chronic kidney disease. Due to ATN and cardiorenal syndrome. Was on IV Lasix. Metabolic acidosis due to acute kidney injury Chronic Atrial Fibrillation on xarelto Chronic heart failure Diarrhea Chronic Liver cirrhosis/hep C CKD, stage III Hyponatremia History of coronary artery disease status post stent History of pancytopenia History of asthma/COPD History of deep venous thrombosis History of GERD History of osteoarthritis History of recent AAA surgery History of hepatitis C treated 3 Chronic back pain and neck pain History of gout History of chronic numbness of the right lower leg Morbid obesity with BMI 43.4 Plan: This is a pleasant 70 years old male who presents with elevated troponin, mild A. fib, covid infection and pancytopenia Continue with multiple vitamins, vitamin C, vitamin D and zinc Consulted hematology team for pancytopenia. Keep holding Xarelto Continue with steroids and vitamins. Monitor oxygen level IV Lasix has been discontinued. IV fluids on hold as well. Labs and medication were reviewed. Monitor lytes and vitals. DVT and GI prophylaxis. DVT prophylaxis no Anticoagulation in view of severe thrombocytopenia GI Prophylaxis: Ppi PT/OT following Prognosis is guarded Time with Patient: Greater than 30
[2021-02-10 11:13] VITALS: BP 124/70; PULSE 67; RESP 20; TEMP 97.5
== END 2021-02-10 11:16 | disposition home health service (06) | DRG 177 ==
LOC: EC 19:45 → 3SCARD 23:18
PROVIDERS: ADMIT Hospitalist; ATTEND Hospitalist
DX: U07.1 COVID-19 (principal); N17.0 Acute kidney failure with tubular necrosis; J96.01 Acute respiratory failure with hypoxia; J18.9 Pneumonia, unspecified organism; D61.818 Other pancytopenia; I13.0 Hypertensive heart and chronic kidney disease with heart failure and stage 1 through stage 4 chronic kidney disease, or unspecified chronic kidney disease; E87.2 Acidosis; E87.1 Hypo-osmolality and hyponatremia; I42.9 Cardiomyopathy, unspecified; I48.19 Other persistent atrial fibrillation; I50.22 Chronic systolic (congestive) heart failure; Z68.41 Body mass index [BMI] 40.0-44.9, adult; J44.0 Chronic obstructive pulmonary disease with (acute) lower respiratory infection; J44.1 Chronic obstructive pulmonary disease with (acute) exacerbation; D63.1 Anemia in chronic kidney disease; E11.22 Type 2 diabetes mellitus with diabetic chronic kidney disease; K74.60 Unspecified cirrhosis of liver; N18.32 Chronic kidney disease, stage 3b; E66.01 Morbid (severe) obesity due to excess calories; B18.2 Chronic viral hepatitis C; F10.20 Alcohol dependence, uncomplicated; I71.4 Abdominal aortic aneurysm, without rupture; Z79.4 Long term (current) use of insulin; E86.1 Hypovolemia; I45.10 Unspecified right bundle-branch block; I25.10 Atherosclerotic heart disease of native coronary artery without angina pectoris; F32.A Depression, unspecified; G89.29 Other chronic pain; M54.2 Cervicalgia; M54.50 Low back pain, unspecified; K21.9 Gastro-esophageal reflux disease without esophagitis; M1A.9XX0 Chronic gout, unspecified, without tophus (tophi); M25.532 Pain in left wrist; M19.90 Unspecified osteoarthritis, unspecified site; R73.9 Hyperglycemia, unspecified; T38.0X5A Adverse effect of glucocorticoids and synthetic analogues, initial encounter; R77.8 Other specified abnormalities of plasma proteins; R16.1 Splenomegaly, not elsewhere classified; Z87.891 Personal history of nicotine dependence; Z71.6 Tobacco abuse counseling; Z79.01 Long term (current) use of anticoagulants; Z79.899 Other long term (current) drug therapy; Z86.718 Personal history of other venous thrombosis and embolism; Z95.828 Presence of other vascular implants and grafts; Z95.5 Presence of coronary angioplasty implant and graft; Z87.19 Personal history of other diseases of the digestive system; Z96.1 Presence of intraocular lens; Z98.42 Cataract extraction status, left eye; Z87.39 Personal history of other diseases of the musculoskeletal system and connective tissue; Z98.41 Cataract extraction status, right eye; Z87.440 Personal history of urinary (tract) infections; Z98.890 Other specified postprocedural states; Z71.3 Dietary counseling and surveillance; Z88.6 Allergy status to analgesic agent; Z88.5 Allergy status to narcotic agent; Z88.8 Allergy status to other drugs, medicaments and biological substances; Z80.0 Family history of malignant neoplasm of digestive organs; Z82.49 Family history of ischemic heart disease and other diseases of the circulatory system
CPT/HCPCS: 36415; 71045; 71046; 76770; 80048; 80053; 81003; 82550; 83605; 83615; 83735; 83880; 84145; 84443; 84484; 85025; 85379; 85384; 85610; 85730; 87040; 87324; 87635; 93005; 94640; 94760; 96374; 99285

== ENCOUNTER → 2021-11-23 | Outpatient (CLI) | payer MEDICARE ==
[2021-11-23 15:08] LABS: Appearance,Urine Clear (Clear); Bilirubin,Urine Negative (Negative); Blood,Urine Moderate (Negative); Color,Urine Light Yellow; Glucose,Urine (UA) 2+ (Negative); Ketones,Urine Negative (Negative); Leukocyte Esterase,Urine Large (Negative); Nitrite,Urine Negative (Negative); Protein,Urine Negative (Negative); RBC,Urine 8 /hpf (0-5); Specific Gravity,Urine 1.008 (1.001-1.035); Squamous Epithelial Cell,Urine <1 /hpf (0-4); Urobilinogen,Urine <2.0 mg/dL (<2.0); WBC,Urine 105 /hpf (0-5)
[2021-11-23 15:16] LABS: Creatinine,Urine Random 52.3 mg/dL; Protein/Creatinine Ratio,Urine 0.402
[2021-11-23 18:17] LABS: % Iron Saturation 23.68 (15.00-50.00); African American GFR (CKD) 49.2 (60.0-200.0); Albumin/Globulin Ratio 0.83 (1.60-3.17); BUN/Creat Ratio 15.69 Ratio (12.00-20.00); Blood Urea Nitrogen 25.1 mg/dL (9.0-27.0); Calcium 8.5 mg/dL (8.7-10.3); Globulin 3.6 g/dL (1.6-3.3); Magnesium 1.8 mg/dL (1.5-2.4); Non-African American GFR(CKD) 42.4 (60.0-200.0); Phosphorus 2.4 mg/dL (2.4-5.1); Potassium 3.4 mmol/L (3.5-5.5); Total Bilirubin 0.8 mg/dL (0.30-1.20); Total Protein 6.6 g/dL (6.2-8.2); Uric Acid 7.8 mg/dL (3.7-8.7)
[2021-11-23 20:33] LABS: Basophils # (A) 0.01 X 10*3/uL (0.00-0.10); Basophils % (A) 0.3 %; Eosinophils # (A) 0.18 X 10*3/uL (0.04-0.35); HCT 32.7 % (39.6-50.0); HGB 10.6 g/dL (13.0-17.0); Immature Grans, Automated 0.3 %; Lymphocytes # (A) 1.12 X 10*3/uL (0.90-5.00); Lymphocytes % (A) 31.2 %; MCH 34.1 pg (27.0-32.0); MCHC 32.4 g/dL (32.0-37.0); MCV 105.1 fL (80.0-97.0); Mean Platelet Volume 13.9 fL (9.5-12.2); Monocytes % (A) 8.4 %; NRBC Per 100 WBC 0 /100 WBCS (0.0-0.0); Neutrophils # (A) 1.97 X 10*3/uL (1.80-7.70); Neutrophils % (A) 54.8 %; Platelet Count 49 X 10*3/uL (140-440); RBC 3.11 X 10*6/uL (4.40-5.60); RDW 15.5 % (11.5-14.5); WBC 3.59 X 10*3/uL (4.50-10.00)
[2021-11-23 20:34] LABS: Immature Platelet Fraction 13.5 % (1.1-6.1); Macrocytosis (M) 2+
== END | disposition home or self-care (01) ==
LOC: LABWHC1 12:22
PROVIDERS: ATTEND Nurse Practitioner Family
DX: E55.9 Vitamin D deficiency, unspecified (principal); N18.31 Chronic kidney disease, stage 3a; E21.3 Hyperparathyroidism, unspecified; M10.9 Gout, unspecified; N39.0 Urinary tract infection, site not specified; D63.1 Anemia in chronic kidney disease; N17.9 Acute kidney failure, unspecified
CPT/HCPCS: 36415; 80053; 81001; 82306; 82570; 82728; 83540; 83550; 83735; 83970; 84100; 84156; 84550; 85025; 87086

== ENCOUNTER → 2022-07-20 | Outpatient (CLI) | payer MEDICARE ==
--- NOTE | 2022-07-20 15:47 | US ---
EXAMINATION TYPE: US liver DATE OF EXAM: 07/20/2022 COMPARISON: NONE CLINICAL INDICATION: Male, 72 years old with history of R74.8 ABN LEVELS OF OTHER SERUM ENZYMES; Elev ated liver enzymes TECHNIQUE: Multiple sonographic images of the right upper quadrant are obtained. FINDINGS: EXAM MEASUREMENTS: Liver Length: 17.1 cm Gallbladder Wall: 0.3 cm CBD: 0.5 cm Right Kidney: 9.3 x 4.4 x 4.9 cm CENTERLESS GRINDER TENDER NOTES: Technical limitations due to patient's body habitus and overlying bowel Pancreas: Pancreatic tail is obscured by bowel gas shadowing. Visualized portions show no gross abno rmal. Liver: limited evaluation. No obvious focal lesion. Gallbladder: No abnormal distention or surrounding fluid. No evidence of stones Evidence for sonographic Goodwin's sign: no CBD: appears wnl as visualized Right Kidney: no evidence of hydronephrosis IMPRESSION: No gallstones or biliary ductal dilatation. Limited detailed assessment due to body habitus and bowel gas.
== END | disposition home or self-care (01) ==
LOC: RADUSWWP 09:24
PROVIDERS: ATTEND Family Medicine
DX: R74.8 Abnormal levels of other serum enzymes (principal); R14.3 Flatulence
CPT/HCPCS: 76705

== ENCOUNTER → 2022-08-26 | Outpatient (CLI) | payer MEDICARE ==
--- NOTE | 2022-08-26 19:22 | US ---
EXAMINATION TYPE: US kidneys/renal and bladder DATE OF EXAM: 08/26/2022 COMPARISON: None CLINICAL INDICATION: Male, 72 years old with history of N13.21 CHRONIC CYSTITIS WITH HEMATURIA; Patie nt states having multiple UTI's EXAM MEASUREMENTS: Right Kidney: 9.4 x 5.5 x 5.6 cm Left Kidney: 9.6 x 4.4 x 5.6 cm Education Managers notes:Suboptimal due to patient body habitus Right Kidney: No hydronephrosis or masses seen Left Kidney: Mid lower exophytic anechoic lesion= 1.9 x 2.2 x 1.9 cm. No hydronephrosis. Bladder: Left posterior bladder wall diverticulum measuring 4.3 x 3.5 x 2.8 cm Bilateral Jets seen Education Managers notes:Incidental finding: Enlarged spleen = 21.3 cm IMPRESSION: 1. No hydronephrosis. 2. Exophytic mid to lower pole left renal cyst measuring 2.2 cm. 3. A left posterior bladder wall diverticulum measuring 4.3 cm incidentally noted. 4. Also, incidental pronounced splenomegaly at 21.3 cm. Clinically correlate.
== END | disposition home or self-care (01) ==
LOC: RADUSWWP 13:20
PROVIDERS: ATTEND Urology
DX: N28.1 Cyst of kidney, acquired (principal); N30.21 Other chronic cystitis with hematuria; N32.3 Diverticulum of bladder; R16.1 Splenomegaly, not elsewhere classified
CPT/HCPCS: 76770

== ENCOUNTER 2022-12-13 21:04 | Observation (INO) | payer MEDICARE ==
--- NOTE | 2022-12-13 21:09 | ED ---
General Adult HPI - General Source: patient, EMS, RN notes reviewed, old records reviewed Mode of arrival: EMS Limitations: no limitations <Fuentes Ku - Last Filed: 12/13/22 21:08> <Giovany Myers - Last Filed: 12/13/22 23:53> - General Stated complaint: Urinary Issues Time Seen by Provider: 12/13/22 21:08 - History of Present Illness Initial comments: 72-year-old male presents emergency Department via EMS from [facility] transfer for abdominal pain, hematuria. (Fuentes Ku) 72-year-old male transferred from [facility] for urology consultation. Patient has had approximately 2 weeks of hematuria which has been worsening. He is Xarelto with history of atrial fibrillation. The patient states he has been having bri blood with clots which is worsened over the past 24-48 hours. He states his last dose of Xarelto was yesterday evening. He denies any abdominal pain. Denies fever. Denies vomiting. Patient was sent for urology consultation as well as anemia and thrombocytopenia. (Giovany Myers) - Related Data Home Medications Medication Instructions Recorded Confirmed Nitroglycerin Sl Tabs [Nitrostat] 0.4 mg PO Q5M PRN 08/31/19 01/31/21 Folic Acid 1 mg PO DAILY 01/09/20 01/31/21 Thiamine [Vitamin B-1] 50 mg PO DAILY@1200 01/09/20 01/31/21 allopurinoL [Zyloprim] 100 mg PO HS 07/23/20 01/31/21 Albuterol Inhaler [Ventolin Hfa 1 puff INHALATION RT-Q6H 01/31/21 01/31/21 Inhaler] Cholecalciferol [Vitamin D3 (25 50 mcg PO DAILY 01/31/21 01/31/21 Mcg = 1000 Iu)] Insulin Glargine,Hum.rec.anlog 30 units SQ HS 01/31/21 01/31/21 [Toujeo Solostar] Ipratropium-Albuterol Nebulize 3 ml INHALATION RT-QID PRN 01/31/21 01/31/21 [Duoneb 0.5 mg-3 mg/3 ml Soln] Previous Rx's Medication Instructions Recorded Cyanocobalamin [Vitamin B-12] 1,000 mcg PO DAILY #30 tab 11/23/19 carvediloL [Coreg] 6.25 mg PO BID-W/MEALS #60 tab 11/23/19 Ascorbic Acid [Vitamin C] 500 mg PO DAILY #30 tab 02/04/21 Zinc Sulfate [Orazinc] 220 mg PO DAILY #30 cap 02/04/21 Rivaroxaban [Xarelto] 10 mg PO HS #30 tab 02/09/21 Sodium Bicarbonate Tab 650 mg PO TID #45 tab 02/09/21 predniSONE See Taper PO DIRECTED #24 tab 02/09/21 Allergies Allergy/AdvReac Type Severity Reaction Status Date / Time codeine Allergy Rash/Hives Verified 12/13/22 21:06 ibuprofen Allergy Unknown Verified 12/13/22 21:06 apixaban [From Eliquis] AdvReac Rash/Hives Verified 12/13/22 21:06 dabigatran etexilate AdvReac Rash/Hives Verified 12/13/22 21:06 [From Pradaxa] midodrine AdvReac Rash/Hives Verified 12/13/22 21:06 Review of Systems ROS Other: All systems not noted in ROS Statement are negative. <Fuentes Ku - Last Filed: 12/13/22 21:08> ROS Other: All systems not noted in ROS Statement are negative. <Giovany Myers - Last Filed: 12/13/22 23:53> ROS Statement: Those systems with pertinent positive or pertinent negative responses have been documented in the HPI. Past Medical History Past Medical History: Atrial Fibrillation, Asthma, Heart Failure, COPD, Deep Vein Thrombosis (DVT), GERD/Reflux, Hypertension, Liver Disease, Osteoarthritis (OA), Pneumonia, Renal Disease Additional Past Medical History / Comment(s): Other hx: Pt states L wrist pain now goes all the way up L arm, recent AAA surgery, chronic chf, bronchitis, liver cirrhosis, hepatitis C treated 3 times, CKD stage III, anemia, thrombocytopenia, pancytopenia-pt recently saw Dr. Matthews, pt states recently told he has diabetes, numbness R lower leg, chronic gout bilateral feet, UTI, chronic low back pain, cervical pain History of Any Multi-Drug Resistant Organisms: None Reported Past Surgical History: Heart Catheterization With Stent, Hernia Repair, Orthopedic Surgery Additional Past Surgical History / Comment(s): Percutaneous endovascjlar abdominal aortic anuerysm repair, EGD, colonoscopies, bilateral cataract removals/lens implants, R shoulder rotator cuff repair, umbilical hernia repair. Past Anesthesia/Blood Transfusion Reactions: Motion Sickness Additional Past Anesthesia/Blood Transfusion Reaction / Comment(s): Pt has received blood without reaction. Date of Last Stent Placement:: 01/2020 Past Psychological History: Depression Smoking Status: Former smoker Past Alcohol Use History: Occasional Past Drug Use History: Marijuana - Past Family History Mother Family Medical History: Cancer Additional Family Medical History / Comment(s): Mother of liver cancer. Father Family Medical History: Myocardial Infarction ([place]) Additional Family Medical History / Comment(s): Father of a [place] at the age of 48yrs. <Fuentes Ku - Last Filed: 12/13/22 21:08> General Exam <Fuentes Ku - Last Filed: 12/13/22 21:08> General appearance: alert, in no apparent distress Head exam: Present: atraumatic, normocephalic Eye exam: Present: normal appearance, PERRL ENT exam: Present: normal exam Neck exam: Present: normal inspection. Absent: tenderness Respiratory exam: Present: normal lung sounds bilaterally. Absent: respiratory distress, wheezes Cardiovascular Exam: Present: regular rate, normal rhythm GI/Abdominal exam: Present: soft. Absent: distended, tenderness, guarding, rebound Extremities exam: Present: normal inspection Neurological exam: Present: alert, oriented X3, CN II-XII intact. Absent: motor sensory deficit Psychiatric exam: Present: normal affect, normal mood Skin exam: Present: warm, dry, intact. Absent: cyanosis, diaphoretic <Giovany Myers - Last Filed: 12/13/22 23:53> - General Exam Comments Initial Comments: Visual Physical Exam Vital signs reviewed General: Well-appearing, nontoxic, no acute distress. Head: Normocephalic, atraumatic Eyes: PERRLA, EOMI ENT: Airway patent Chest: Nonlabored breathing Skin: No visual rash, normal skin tone Neuro: Alert and oriented 3 Musculoskeletal: No gross abnormalities (Fuentes Ku) Medical Decision Making <Fuentes Ku - Last Filed: 12/13/22 21:08> <Giovany Myers - Last Filed: 12/13/22 23:53> - Medical Decision Making I performed a quick note portion of the signed Fuentes Ku PA-C (Fuentes Ku) Was pt. sent in by a medical professional or institution ([facility], [employer]RI[employer]ION [employer], urgent care, hospital, or longterm...) When possible be specific @ Patient sent Did you speak to anyone other than the patient for history (EMS, parent, family, police, friend...)? What history was obtained from this source @ -No Did you review nursing and triage notes (agree or disagree)? Why? @ -I reviewed and agree with nursing and triage notes Were old charts reviewed (outside hosp., previous admission, EMS record, old EKG, old radiological studies, urgent care reports/EKG's, longterm records)? Report findings @ -No old charts were reviewed Differential Diagnosis (chest pain, altered mental status, abdominal pain women, abdominal pain men, vaginal bleeding, weakness, fever, dyspnea, syncope, headache, dizziness, GI bleed, back pain, seizure, CVA, palpatations, mental health, musculoskeletal)? @ Painless hematuria EKG interpreted by me (3pts min.). @ -As above X-rays interpreted by me (1pt min.). @ -None done CT interpreted by me (1pt min.). @ -CT interpretation by radiology reveals bladder diverticula U/S interpreted by me (1pt. min.). @ -None done What testing was considered but not performed or refused? (CT, X-rays, U/S, labs)? Why? @ -None What meds were considered but not given or refused? Why? @ -None Did you discuss the management of the patient with other professionals (professionals i.e. [facility], DISTRIBUTION [employer], lab, RT, psych nurse, social welfare research worker, spool hauler, teacher, retirement officer, telephonic case manager)? Give summary @ -No Was smoking cessation discussed for >3mins.? @ -No Was critical care preformed (if so, how long)? @ -No Were there social determinants of health that impacted care today? How? (Homelessness, low income, unemployed, alcoholism, drug addiction, transportation, low edu. Level, literacy, decrease access to med. care, halfway, rehab)? @ -No Was there de-escalation of care discussed even if they declined (Discuss DNR or withdrawal of care, Hospice)? DNR status @ -No What co-morbidities impacted this encounter? (DM, HTN, Smoking, COPD, CAD, Cancer, CVA, ARF, Chemo, Hep., AIDS, mental health diagnosis, sleep apnea, morbid obesity)? @ -[Anticoagulation with history of A. fib Was patient admitted / discharged? Hospital course, mention meds given and route, prescriptions, significant lab abnormalities, going to OR and other pertinent info. @ 72-year-old male transferred from outside hospital with anemia, thrombocytopenia and hematuria. Hematuria has been present for the past several weeks but has worsened over the past 24-48 hours. Patient apparently had a hemoglobin of 9.5 with a baseline of 12. He also had low platelets at 40. All laboratory studies will be repeated including hemoglobin, urinalysis, platelet count and coags. He'll be admitted to internal medicine with neurology on consultation. Undiagnosed new problem with uncertain prognosis? @ -No Drug Therapy requiring intensive monitoring for toxicity (Heparin, Nitro, Insulin, Cardizem)? @ -No Were any procedures done? @ -No Diagnosis/symptom? @ -[Hematuria, anemia, thrombocytopenia Acute, or Chronic, or Acute on Chronic? @ -[Acute Uncomplicated (without systemic symptoms) or Complicated (systemic symptoms)? @ -Complicated Side effects of treatment? @ -No Exacerbation, Progression, or Severe Exacerbation? @ -No Poses a threat to life or bodily function? How? (Chest pain, [place], [place], pneumonia, PE, COPD, DKA, ARF, appy, cholecystitis, CVA, Diverticulitis, Homicidal, Suicidal, threat to staff... and all critical care pts) @ Yes, anemia (Giovany Myers) Disposition <Fuentes Ku - Last Filed: 12/13/22 21:08> Is patient prescribed a controlled substance at d/c from ED?: No Time of Disposition: 23:53 <Giovany Myers - Last Filed: 12/13/22 23:53> Clinical Impression: Thrombocytopenia, Hematuria, Anemia Disposition: ADMITTED IP TO THIS HOSP Condition: Stable Referrals: Aristides Mena DO [Primary Care Provider] - 1-2 days
[2022-12-13] MEDS ORDERED: NALOXONE 0.4 MG/ML 1 ML VIAL IV PRN (23:46)
[2022-12-13] MEDS ORDERED: ACETAMINOPHEN TAB 325 MG TAB PO PRN (23:46)
[2022-12-14 01:09] LABS: ALT 23 U/L (4-49); AST 39 U/L (17-59); African American GFR (CKD) 53 (>60 ml/min/1.73 sqM); Albumin 2.7 g/dL (3.5-5.0); Alkaline Phosphatase 169 U/L (38-126); Anion Gap 7 mmol/L; Blood Urea Nitrogen 21 mg/dL (9-20); Calcium 8.8 mg/dL (8.4-10.2); Carbon Dioxide 21 mmol/L (22-30); Chloride 109 mmol/L (98-107); Glucose 143 mg/dL (74-99); Non-African American GFR(CKD) 46 (>60 ml/min/1.73 sqM); Potassium 4.2 mmol/L (3.5-5.1); Sodium 137 mmol/L (137-145); Total Bilirubin 1.4 mg/dL (0.2-1.3)
[2022-12-14 01:13] LABS: HCT 26.6 % (39.0-53.0); HGB 9.3 gm/dL (13.0-17.5); MCH 38.8 pg (25.0-35.0); MCHC 34.8 g/dL (31.0-37.0); MCV 111.5 fL (80.0-100.0); Macrocytosis Marked; Mean Platelet Volume 9.7; RBC 2.39 m/uL (4.30-5.90); WBC 3.8 k/uL (3.8-10.6)
[2022-12-14 01:15] LABS: INR 1.1 (<1.2); Partial Thromboplastin Time 26.7 sec (22.0-30.0); Prothrombin Time 11.7 sec (9.0-12.0)
[2022-12-14 01:44] LABS: Appearance,Urine Cloudy (Clear); Bilirubin,Urine Negative (Negative); Blood,Urine Large (Negative); Color,Urine Red; Glucose,Urine (UA) Negative (Negative); Ketones,Urine Negative (Negative); Leukocyte Esterase,Urine Moderate (Negative); Mucus,Urine Rare /hpf; Nitrite,Urine Negative (Negative); Protein,Urine 1+ (Negative); RBC,Urine >182 /hpf (0-5); Specific Gravity,Urine 1.015 (1.001-1.035); Squamous Epithelial Cell,Urine 1 /hpf (0-4); Urobilinogen,Urine <2.0 mg/dL (<2.0); WBC,Urine 29 /hpf (0-5)
[2022-12-14 02:38] LABS: Platelet Count 42 k/uL (150-450)
[2022-12-14 02:41] LABS: Eosinophils # (M) 0.27 k/uL (0-0.7); Lymphocytes # (M) 0.72 k/uL (1.0-4.8); Monocytes # (M) 0.11 k/uL (0-1.0); Neutrophils % (M) 71 %; Nucleated Red Blood Cells 0 /100 WBC (0-0); Total Cells Counted 100
[2022-12-14 08:25] LABS: Glucose,Whole Blood 134 mg/dL (70-110)
[2022-12-14] MEDS ORDERED: ALBUTEROL HFA INHALER INHALATION PRN (10:55)
[2022-12-14] MEDS: SODIUM CHLORIDE 0.9% 1,000 ML IV SCH (11:11)
[2022-12-14] MEDS: INSULIN ASPART (NovoLOG) 100 UNIT/ML VIAL SQ SCH ×3 (11:43→20:00)
[2022-12-14 12:30] LABS: Glucose,Whole Blood 169 mg/dL (70-110)
--- NOTE | 2022-12-14 15:03 | P.GSCN ---
History of Present Illness Consult date: 12/14/22 Reason for Consult: Gross hematuria History of present illness: This is a 72-year-old male that presents as a transfer from [facility] for gross hematuria. Patient indicated for the past 7 days she's been having persistent gross hematuria. Denies any previous history of gross hematuria. He is able to void without any difficulties. He did indicated he's noticed some blood clots in the urine. He does have history of chronic thrombocytopenia and his platelets were 40,000, he does follow-up as an outpatient with Dr. Matthews. He is also on Xarelto A. fib. Denies any Family history of malignancies. Denies any previous history of urinary retention, recurrent UTIs, or kidney stones. Review of Systems - Constitutional Denies fever, Denies weight loss - Cardiovascular Denies chest pain, Denies shortness of breath - Respiratory Denies cough, Denies 7 - Gastrointestinal Reports as per HPI - Genitourinary Reports hematuria, Denies dysuria, Denies flank pain - Integumentary Denies rash, Denies unusual bruising - Neurological Denies headaches, Denies syncope Past Medical History Past Medical History: Atrial Fibrillation, Asthma, Heart Failure, COPD, Deep Vein Thrombosis (DVT), GERD/Reflux, Hypertension, Liver Disease, Osteoarthritis (OA), Pneumonia, Renal Disease Additional Past Medical History / Comment(s): Other hx: Pt states L wrist pain now goes all the way up L arm, recent AAA surgery, chronic chf, bronchitis, liver cirrhosis, hepatitis C treated 3 times, CKD stage III, anemia, thrombocytopenia, pancytopenia-pt recently saw Dr. Matthews, pt states recently told he has diabetes, numbness R lower leg, chronic gout bilateral feet, UTI, chronic low back pain, cervical pain History of Any Multi-Drug Resistant Organisms: None Reported Past Surgical History: Heart Catheterization With Stent, Hernia Repair, Orthopedic Surgery Additional Past Surgical History / Comment(s): Percutaneous endovascjlar abdominal aortic anuerysm repair, EGD, colonoscopies, bilateral cataract removals/lens implants, R shoulder rotator cuff repair, umbilical hernia repair. Past Anesthesia/Blood Transfusion Reactions: Motion Sickness Additional Past Anesthesia/Blood Transfusion Reaction / Comm: Pt has received blood without reaction. Date of Last Stent Placement:: 01/2020 Past Psychological History: Depression Additional Psychological History / Comment(s): Pt states depression comes and goes. Pt lives alone with a dog and cat. [facility] in the past. He has been using a cane. Smoking Status: Former smoker Past Alcohol Use History: Occasional Additional Past Alcohol Use History / Comment(s): Pt started smoking in 1963 and quit in 2004. He has not drank since 2004-he drank occasionally. Past Drug Use History: Marijuana Additional Drug Use History / Comment(s): Quit smoking faya 05/24/20. He aslo uses CBD oil - Past Family History Mother Family Medical History: Cancer Additional Family Medical History / Comment(s): Mother of liver cancer. Father Family Medical History: Myocardial Infarction (HI) Additional Family Medical History / Comment(s): Father of a HI at the age of 48yrs. Medications and Allergies Home Medications Medication Instructions Recorded Confirmed Type Nitroglycerin Sl Tabs [Nitrostat] 0.4 mg PO Q5M PRN 08/31/19 12/14/22 History Cyanocobalamin [Vitamin B-12] 1,000 mcg PO DAILY #30 tab 11/23/19 12/14/22 Rx carvediloL [Coreg] 6.25 mg PO BID-W/MEALS #60 tab 11/23/19 12/14/22 Rx Albuterol Inhaler [Ventolin Hfa 2 puff INHALATION RT-Q6H PRN 01/31/21 12/14/22 History Inhaler] Cholecalciferol [Vitamin D3 (25 50 mcg PO DAILY 01/31/21 12/14/22 History Mcg = 1000 Iu)] Ascorbic Acid [Vitamin C] 500 mg PO DAILY #30 tab 02/04/21 12/14/22 Rx Rivaroxaban [Xarelto] 10 mg PO HS #30 tab 02/09/21 12/14/22 Rx Alfuzosin HCl [Alfuzosin HCl ER] 10 mg PO HS 12/14/22 12/14/22 History Famotidine [Pepcid] 20 mg PO DAILY 12/14/22 12/14/22 History Folic Acid 1 mg PO DAILY 12/14/22 12/14/22 History Glucagon [Gvoke Pfs 1-Pack Syringe] 1 mg SQ DIRECTED PRN 12/14/22 12/14/22 History Insulin Degludec [Tresiba 30 units SQ HS 12/14/22 12/14/22 History Flextouch U-100 Pen] Potassium Chloride [Klor-Con M10] 10 meq PO BID 12/14/22 12/14/22 History Torsemide [Demadex] 20 mg PO BID 12/14/22 12/14/22 History allopurinoL [Zyloprim] 300 mg PO DAILY 12/14/22 12/14/22 History calcitrioL [Calcitriol] 0.25 mcg PO Q7D 12/14/22 12/14/22 History Allergies Allergy/AdvReac Type Severity Reaction Status Date / Time apixaban [From Eliquis] Allergy Rash/Hives Verified 12/14/22 10:33 codeine Allergy Rash/Hives Verified 12/14/22 10:33 dabigatran etexilate Allergy Rash/Hives Verified 12/14/22 10:33 [From Pradaxa] ibuprofen Allergy Unknown Verified 12/14/22 10:33 midodrine Allergy Rash/Hives Verified 12/14/22 10:33 Surgical - Exam Vital Signs Pulse Resp BP Pulse Ox 68 16 138/73 98 12/14/22 00:40 12/14/22 00:40 12/14/22 00:40 12/14/22 00:40 - General no distress, no pain - Eyes normal ocular movement, no pale - ENT normal nares, normal mucosa - Respiratory normal expansion, normal respiratory effort - Abdomen Abdomen: soft, non tender - Psychiatric oriented to time, oriented to person, oriented to place Results - Labs 12/14/22 00:39 12/14/22 00:39 Abnormal Lab Results - Last 24 Hours (Table) 12/13/22 12/14/22 12/14/22 Range/Units 00:39 00:39 00:39 RBC 2.39 L (4.30-5.90) m/uL Hgb 9.3 L (13.0-17.5) gm/dL Hct 26.6 L (39.0-53.0) % MCV 111.5 H (80.0-100.0) fL MCH 38.8 H (25.0-35.0) pg Plt Count 42 L (150-450) k/uL Lymphocytes # (Manual) 0.72 L (1.0-4.8) k/uL Macrocytosis Marked A Chloride 109 H (98-107) mmol/L Carbon Dioxide 21 L (22-30) mmol/L BUN 21 H (9-20) mg/dL Creatinine 1.50 H (0.66-1.25) mg/dL Glucose 143 H (74-99) mg/dL POC Glucose (mg/dL) (70-110) mg/dL Total Bilirubin 1.4 H (0.2-1.3) mg/dL Alkaline Phosphatase 169 H (38-126) U/L Total Protein 6.0 L (6.3-8.2) g/dL Albumin 2.7 L (3.5-5.0) g/dL Urine Protein 1+ H (Negative) Urine Blood Large H (Negative) Ur Leukocyte Esterase Moderate H (Negative) Urine RBC >182 H (0-5) /hpf Urine WBC 29 H (0-5) /hpf Urine Mucus Rare H (None) /hpf 12/14/22 12/14/22 Range/Units 08:23 12:29 RBC (4.30-5.90) m/uL Hgb (13.0-17.5) gm/dL Hct (39.0-53.0) % MCV (80.0-100.0) fL MCH (25.0-35.0) pg Plt Count (150-450) k/uL Lymphocytes # (Manual) (1.0-4.8) k/uL Macrocytosis Chloride (98-107) mmol/L Carbon Dioxide (22-30) mmol/L BUN (9-20) mg/dL Creatinine (0.66-1.25) mg/dL Glucose (74-99) mg/dL POC Glucose (mg/dL) 134 H 169 H (70-110) mg/dL Total Bilirubin (0.2-1.3) mg/dL Alkaline Phosphatase (38-126) U/L Total Protein (6.3-8.2) g/dL Albumin (3.5-5.0) g/dL Urine Protein (Negative) Urine Blood (Negative) Ur Leukocyte Esterase (Negative) Urine RBC (0-5) /hpf Urine WBC (0-5) /hpf Urine Mucus (None) /hpf Diabetes panel 12/14/22 Range/Units 00:39 Sodium 137 (137-145) mmol/L Potassium 4.2 (3.5-5.1) mmol/L Chloride 109 H (98-107) mmol/L Carbon Dioxide 21 L (22-30) mmol/L BUN 21 H (9-20) mg/dL Creatinine 1.50 H (0.66-1.25) mg/dL Glucose 143 H (74-99) mg/dL Calcium 8.8 (8.4-10.2) mg/dL AST 39 (17-59) U/L ALT 23 (4-49) U/L Alkaline Phosphatase 169 H (38-126) U/L Total Protein 6.0 L (6.3-8.2) g/dL Albumin 2.7 L (3.5-5.0) g/dL Calcium panel 12/14/22 Range/Units 00:39 Calcium 8.8 (8.4-10.2) mg/dL Albumin 2.7 L (3.5-5.0) g/dL Pituitary panel 12/14/22 Range/Units 00:39 Sodium 137 (137-145) mmol/L Potassium 4.2 (3.5-5.1) mmol/L Chloride 109 H (98-107) mmol/L Carbon Dioxide 21 L (22-30) mmol/L BUN 21 H (9-20) mg/dL Creatinine 1.50 H (0.66-1.25) mg/dL Glucose 143 H (74-99) mg/dL Calcium 8.8 (8.4-10.2) mg/dL Adrenal panel 12/14/22 Range/Units 00:39 Sodium 137 (137-145) mmol/L Potassium 4.2 (3.5-5.1) mmol/L Chloride 109 H (98-107) mmol/L Carbon Dioxide 21 L (22-30) mmol/L BUN 21 H (9-20) mg/dL Creatinine 1.50 H (0.66-1.25) mg/dL Glucose 143 H (74-99) mg/dL Calcium 8.8 (8.4-10.2) mg/dL Total Bilirubin 1.4 H (0.2-1.3) mg/dL AST 39 (17-59) U/L ALT 23 (4-49) U/L Alkaline Phosphatase 169 H (38-126) U/L Total Protein 6.0 L (6.3-8.2) g/dL Albumin 2.7 L (3.5-5.0) g/dL Assessment and Plan Assessment: 72-year-old with history of gross hematuria admitted to the hospital with 1 week history of gross hematuria. Does have history of chronic thrombocytopenia. His hemoglobin is 9.3 his baseline is around 12. Patient is also on Xarelto last dose was on December 12. Discussed with him he will require an evaluation for a his gross hematuria. But discussed his Xarelto and his thrombocytopenia is contributing to his hematuria. Of note he also has history of liver cirrhosis secondary to hep C. At This time we will obtain cross-sectional images on him. And he will require cystoscopy, if his hematuria improves we'll arrange for that as an outpatient cystoscopy , but if he has persistent hematuria with clots and continuous downtrending hemoglobin then we'll proceed with cystoscopy in the operating room -Continue to hold Xarelto -Hematology consult for his thrombocytopenia -CT abdomen and pelvis -We will reassess tomorrow
[2022-12-14 17:28] LABS: Glucose,Whole Blood 165 mg/dL (70-110)
[2022-12-14] MEDS: carvediloL 6.25 MG TAB PO SCH (17:32)
[2022-12-14 19:56] LABS: Glucose,Whole Blood 183 mg/dL (70-110)
--- NOTE | 2022-12-14 22:23 | P.HPIM ---
History of Present Illness H&P Date: 12/14/22 Chief Complaint: Blood in the urine Patient is a 72-year-old male with a known history of atrial fibrillation on anticoagulation with Xarelto, chronic anemia, thrombocytopenia, hepatitis C treated 3 times, liver cirrhosis history of DVT, depression and prior history of smoking and prior history of COVID-19 in February 2021 was transferred from [facility]. Patient states that he has been having blood in the urine for the past 1 week and also having blood clots. Patient is currently on Xarelto for atrial fibrillation. Last dose was yesterday morning. Patient was passing bri blood and went to [facility]. Patient was transferred to [facility] for further evaluation by urology. Otherwise patient denies any complaints of abdominal pain. Denies any weight loss. No cough or production. No chest pain. Denies any recent infections. On admission laboratory data showed WBC 3.8 hemoglobin 9.3 and platelets 42 MCV 111.5. Baseline hemoglobin was around 12 about a year ago. Sodium 137 potassium 4.2 chloride 109 bicarb is 21 BUN 21 and creatinine 1.5 Blood sugar 143 Total bilirubin level is 1.4 and alk phos 169 protein 6.0 and albumin 2.7. Patient states that his Xarelto dose was increased to 20 mg recently. Review of Systems Constitutional: Patient denies any fever or chills . no Generalized weakness. Abdomen: Patient denied any nausea or vomiting or abd. pain Cardiovascular: Patient denies any chest pain or short of breath no palpitations. Respiratory: patient denied any cough . no sputum production. No shortness of breath Neurologic: Patient denied any numbness or tingling headache. Musculoskeletal: Patient denies any complaints of joint swelling or deformity. Skin: Negative Psychiatric: Negative Endocrine: No heat or cold intolerance. No recent weight gain. Genitourinary: No dysuria. Patient does have hematuria. All other 14 point ROS negative except the above Past Medical History Past Medical History: Atrial Fibrillation, Asthma, Heart Failure, COPD, Deep Vein Thrombosis (DVT), GERD/Reflux, Hypertension, Liver Disease, Osteoarthritis (OA), Pneumonia, Renal Disease Additional Past Medical History / Comment(s): Other hx: Pt states L wrist pain now goes all the way up L arm, recent AAA surgery, chronic chf, bronchitis, liver cirrhosis, hepatitis C treated 3 times, CKD stage III, anemia, throm bocytopenia, pancytopenia-pt recently saw Dr. Matthews, pt states recently told he has diabetes, numbness R lower leg, chronic gout bilateral feet, UTI, chronic low back pain, cervical pain History of Any Multi-Drug Resistant Organisms: None Reported Past Surgical History: Heart Catheterization With Stent, Hernia Repair, Orthopedic Surgery Additional Past Surgical History / Comment(s): Percutaneous endovascjlar abdominal aortic anuerysm repair, EGD, colonoscopies, bilateral cataract removals/lens implants, R shoulder rotator cuff repair, umbilical hernia repair. Past Anesthesia/Blood Transfusion Reactions: Motion Sickness Additional Past Anesthesia/Blood Transfusion Reaction / Comment(s): Pt has received blood without reaction. Date of Last Stent Placement:: 01/2020 Past Psychological History: Depression Additional Psychological History / Comment(s): Pt states depression comes and goes. Pt lives alone with a dog and cat. [facility] in the past. He has been using a cane. Smoking Status: Former smoker Past Alcohol Use History: Occasional Additional Past Alcohol Use History / Comment(s): Pt started smoking in 1963 and quit in 2004. He has not drank since 2004-he drank occasionally. Past Drug Use History: Marijuana Additional Drug Use History / Comment(s): Quit smoking maijuana 05/24/20. He aslo uses CBD oil - Past Family History Mother Family Medical History: Cancer Additional Family Medical History / Comment(s): Mother of liver cancer. Father Family Medical History: Myocardial Infarction (NH) Additional Family Medical History / Comment(s): Father of a NH at the age of 48yrs. Medications and Allergies Home Medications Medication Instructions Recorded Confirmed Type Nitroglycerin Sl Tabs [Nitrostat] 0.4 mg PO Q5M PRN 08/31/19 12/14/22 History Cyanocobalamin [Vitamin B-12] 1,000 mcg PO DAILY #30 tab 11/23/19 12/14/22 Rx carvediloL [Coreg] 6.25 mg PO BID-W/MEALS #60 tab 11/23/19 12/14/22 Rx Albuterol Inhaler [Ventolin Hfa 2 puff INHALATION RT-Q6H PRN 01/31/21 12/14/22 History Inhaler] Cholecalciferol [Vitamin D3 (25 50 mcg PO DAILY 01/31/21 12/14/22 History Mcg = 1000 Iu)] Ascorbic Acid [Vitamin C] 500 mg PO DAILY #30 tab 02/04/21 12/14/22 Rx Rivaroxaban [Xarelto] 10 mg PO HS #30 tab 02/09/21 12/14/22 Rx Alfuzosin HCl [Alfuzosin HCl ER] 10 mg PO HS 12/14/22 12/14/22 History Famotidine [Pepcid] 20 mg PO DAILY 12/14/22 12/14/22 History Folic Acid 1 mg PO DAILY 12/14/22 12/14/22 History Glucagon [Gvoke Pfs 1-Pack Syringe] 1 mg SQ DIRECTED PRN 12/14/22 12/14/22 History Insulin Degludec [Tresiba 30 units SQ HS 12/14/22 12/14/22 History Flextouch U-100 Pen] Potassium Chloride [Klor-Con M10] 10 meq PO BID 12/14/22 12/14/22 History Torsemide [Demadex] 20 mg PO BID 12/14/22 12/14/22 History allopurinoL [Zyloprim] 300 mg PO DAILY 12/14/22 12/14/22 History calcitrioL [Calcitriol] 0.25 mcg PO Q7D 12/14/22 12/14/22 History Allergies Allergy/AdvReac Type Severity Reaction Status Date / Time apixaban [From Eliquis] Allergy Rash/Hives Verified 12/14/22 10:33 codeine Allergy Rash/Hives Verified 12/14/22 10:33 dabigatran etexilate Allergy Rash/Hives Verified 12/14/22 10:33 [From Pradaxa] ibuprofen Allergy Unknown Verified 12/14/22 10:33 midodrine Allergy Rash/Hives Verified 12/14/22 10:33 Physical Exam Vitals: Vital Signs Temp Pulse Pulse Resp BP BP Pulse Ox 12/14/22 08:27 97.8 F 59 L 16 146/77 98 12/14/22 08:00 16 12/14/22 06:00 62 14 128/71 98 12/14/22 05:00 67 16 132/66 12/14/22 04:00 59 L 14 120/55 12/14/22 03:00 58 L 16 137/66 12/14/22 02:51 62 16 138/73 97 12/14/22 00:40 68 16 138/73 98 Intake and Output 12/13/22 12/14/22 12/14/22 22:59 06:59 14:59 Other: Weight 143.789 kg 143.789 kg PHYSICAL EXAMINATION: Patient is lying in the bed comfortably, no acute distress, awake alert and oriented.Morbid obese.. HEENT: Normocephalic. Neck is supple. Pupils reactive. Nostrils clear. Oral cavity is moist. Neck reveals no JVD, carotid bruits, or thyromegaly. CHEST EXAMINATION: Trachea is central. Symmetrical expansion. Bibasilar diminished sounds and mild expiratory wheeze. Nonlabored breathing.. CARDIAC: Normal S1, S2 with no gallops. No murmurs ABDOMEN: Soft. Bowel sounds present. Nontender. No organomegaly. No abdominal bruits. Extremities: trace love pedal edema. No clubbing or cyanosis Neurologically awake, alert, oriented x3 with well-coordinated movements. No focal deficits noted Skin: No rash or skin lesions. Psychiatric: Coperative. Nonsuicidal, Musculoskeletal: No joint swelling or deformity. Normal range of motion. Results CBC & Chem 7: 12/14/22 00:39 12/14/22 00:39 Labs: Abnormal Lab Results - Last 24 Hours (Table) 12/13/22 12/14/22 12/14/22 Range/Units 00:39 00:39 00:39 RBC 2.39 L (4.30-5.90) m/uL Hgb 9.3 L (13.0-17.5) gm/dL Hct 26.6 L (39.0-53.0) % MCV 111.5 H (80.0-100.0) fL MCH 38.8 H (25.0-35.0) pg Plt Count 42 L (150-450) k/uL Lymphocytes # (Manual) 0.72 L (1.0-4.8) k/uL Macrocytosis Marked A Chloride 109 H (98-107) mmol/L Carbon Dioxide 21 L (22-30) mmol/L BUN 21 H (9-20) mg/dL Creatinine 1.50 H (0.66-1.25) mg/dL Glucose 143 H (74-99) mg/dL POC Glucose (mg/dL) (70-110) mg/dL Total Bilirubin 1.4 H (0.2-1.3) mg/dL Alkaline Phosphatase 169 H (38-126) U/L Total Protein 6.0 L (6.3-8.2) g/dL Albumin 2.7 L (3.5-5.0) g/dL Urine Protein 1+ H (Negative) Urine Blood Large H (Negative) Ur Leukocyte Esterase Moderate H (Negative) Urine RBC >182 H (0-5) /hpf Urine WBC 29 H (0-5) /hpf Urine Mucus Rare H (None) /hpf 12/14/22 Range/Units 08:23 RBC (4.30-5.90) m/uL Hgb (13.0-17.5) gm/dL Hct (39.0-53.0) % MCV (80.0-100.0) fL MCH (25.0-35.0) pg Plt Count (150-450) k/uL Lymphocytes # (Manual) (1.0-4.8) k/uL Macrocytosis Chloride (98-107) mmol/L Carbon Dioxide (22-30) mmol/L BUN (9-20) mg/dL Creatinine (0.66-1.25) mg/dL Glucose (74-99) mg/dL POC Glucose (mg/dL) 134 H (70-110) mg/dL Total Bilirubin (0.2-1.3) mg/dL Alkaline Phosphatase (38-126) U/L Total Protein (6.3-8.2) g/dL Albumin (3.5-5.0) g/dL Urine Protein (Negative) Urine Blood (Negative) Ur Leukocyte Esterase (Negative) Urine RBC (0-5) /hpf Urine WBC (0-5) /hpf Urine Mucus (None) /hpf Thrombosis Risk Factor Assmnt - DVT/VTE Prophylaxis DVT/VTE Prophylaxis: Mechanical Prophylaxis ordered - Choose All That Apply Each Risk Factor Represents 2 Points: Age 61-74 years Thrombosis Risk Factor Assessment Total Risk Factor Score: 2 Thrombosis Risk Factor Assessment Level: Low Risk Assessment and Plan Assessment: Acute blood loss anemia secondary to hematuria. Chronic anemia and thrombocytopenia Hepatitis C s/p treatment x3 Liver cirrhosis Macrocytosis Chronic atrial fibrillation on anticoagulation with Xarelto Coronary artery history of stent placement Asthma/COPD not in exacerbation History of DVT GERD Osteoarthritis History of AAA repair Chronic low back pain and neck pain. History of gout Chronic numbness of right lower extremity Morbid obesity with a BMI of 41.8 GI prophylaxis on Pepcid. DVT prophylaxis with SCDs. Plan: Patient will be continued on IV hydration with normal saline. Monitor H&H. Xarelto is on hold. Urology was consulted and recommended CT of the abdomen pelvis. Hematology consulted for evaluation of anemia and thrombocytopenia. Follow-up B12 and folate levels. Continue with albuterol breathing treatments and home medications. GI and DVT prophylaxis with SCDs. Continue to follow closely. Time with Patient: Greater than 30
--- NOTE | 2022-12-14 22:47 | CT ---
EXAMINATION TYPE: CT abdomen pelvis wo con DATE OF EXAM: 12/14/2022 COMPARISON: 11/14/2018 INDICATION: Hematuria. DLP: 1721.40 mGycm, Automated exposure control for dose reduction was used. CONTRAST: 0 mL of Isovue 300. Study performed without Oral Contrast TECHNIQUE: Axial images were obtained from above the diaphragm to the pubic rami in the axial plane a t 5 mm thick sections. Reconstructed images are reviewed on the computer in the coronal plane. FINDINGS: Limited CT sections are obtained the lung bases. There is interval development of a 1.7 x 2.4 cm pos terior medial right midlung nodular density. Series [address] ABDOMEN: Liver: Normal Spleen: Splenomegaly is present measuring 19.0 cm. Normal less than 12.5 cm. Pancreas: Atrophic Adrenal glands: The adrenal glands are normal. Gallbladder: Normal Kidneys: No masses are evident. No hydronephrosis is present. No cysts are present. Delayed images were obtained through the kidneys, which remain unremarkable. Aorta: Vascular calcification is within the aorta. Aortic stent is present with iliac limbs. Study i s without contrast and endovascular leak cannot be evaluated. Inferior vena cava: Normal. CT PELVIS: Loops of bowel within the abdomen and pelvis are normal. This study is without oral contrast limi ting bowel evaluation. Appendix: Not identified. No dilated tubular structures or inflammatory change is evident. Urinary bladder: Appears to be urinary bladder diverticulum in the posterior superior left. Some degr ee may be within the dependent portion. This was present previously Genitourinary structures: Prostate contains calcification. Osseous structures: No suspicious lytic or sclerotic lesions. IMPRESSION: 1. Splenomegaly. 2. Interval development of a posterior medial right midlung nodule. Additional workup for neoplasm is recommended. 3. Aortic stent. 4. Urinary bladder diverticulum
[2022-12-15] MEDS: SODIUM CHLORIDE 0.9% 1,000 ML IV SCH (00:37)
[2022-12-15 06:23] LABS: Glucose,Whole Blood 141 mg/dL (70-110)
[2022-12-15] MEDS: carvediloL 6.25 MG TAB PO SCH (06:23)
[2022-12-15] MEDS: INSULIN ASPART (NovoLOG) 100 UNIT/ML VIAL SQ SCH ×2 (06:24→12:21)
[2022-12-15 08:25] VITALS: RESP 17
[2022-12-15] MEDS ORDERED: FAMOTIDINE 20 MG TAB PO SCH (09:00)
[2022-12-15] MEDS ORDERED: allopurinoL 300 MG TAB PO SCH (09:00)
[2022-12-15 09:55] LABS: % Iron Saturation 22.62 (15.00-50.00); ALT 22 U/L (10-49); AST 30 U/L (14-35); Albumin 2.7 d/dL (3.8-4.9); Alkaline Phosphatase 166 U/L (41-126); BUN/Creat Ratio 11.53 Ratio (12.00-20.00); Blood Urea Nitrogen 17.3 mg/dL (9.0-27.0); Calcium 7.9 mg/dL (8.7-10.3); Carbon Dioxide 21.8 mmol/L (21.6-31.8); Chloride 111 mmol/L (96-109); Ferritin 90.6 ng/mL (22.0-322.0); Globulin 2.7 d/dL (1.6-3.3); Glucose 132 mg/dL (70-110); Iron 57 UG/DL (65-175); Potassium 4.2 mmol/L (3.5-5.5); Sodium 142 mmol/L (135-145); Total Bilirubin 0.9 mg/dL (0.3-1.2); Total Iron Binding Capacity 252 UG/DL (228-460); Total Protein 5.4 d/dL (6.2-8.2)
[2022-12-15 10:10] LABS: Basophils # (A) 0.01 X 10*3/uL (0.00-0.10); Basophils % (A) 0.4 %; Elliptocytes 2+; Eosinophils % (A) 4.1 %; HCT 25.4 % (39.6-50.0); HGB 8.3 d/dL (13.0-17.0); Lymphocytes # (A) 0.76 X 10*3/uL (0.90-5.00); Lymphocytes % (A) 31.4 %; MCH 36.1 pg (27.0-32.0); MCHC 32.7 d/dL (32.0-37.0); MCV 110.4 FL (80.0-97.0); Macrocytosis (M) 3+; Mean Platelet Volume 13.2 FL (9.5-12.2); Monocytes # (A) 0.23 X 10*3/uL (0.20-1.00); Monocytes % (A) 9.5 %; NRBC Per 100 WBC 0 X 10*3/uL (0.00-0.01); Neutrophils # (A) 1.31 X 10*3/uL (1.80-7.70); Neutrophils % (A) 54.2 %; Platelet Count 37 X 10*3/uL (140-440); RDW 15.4 % (11.5-14.5); WBC 2.42 X 10*3/uL (4.50-10.00)
[2022-12-15] MEDS ORDERED: FERROUS SULFATE 325 MG TAB PO SCH (12:00)
[2022-12-15 12:14] LABS: Glucose,Whole Blood 134 mg/dL (70-110)
[2022-12-15 13:43] VITALS: BP 135/69; PULSE 61; TEMP 97.9
--- NOTE | 2022-12-15 17:43 | P.PN ---
Subjective Progress Note Date: 12/15/22 No acute overnight events, urine is mainly consistent with old blood this morning. Voiding without difficulties. CT abdomen and pelvis showed no acute process Objective - Vital Signs Vital signs: Vital Signs Temp 97.9 F 12/15/22 13:30 Pulse 61 12/15/22 13:30 Resp 17 12/15/22 13:30 BP 135/69 12/15/22 13:30 Pulse Ox 99 12/15/22 13:30 FiO2 Intake & Output 12/14/22 12/15/22 12/15/22 18:59 06:59 18:59 Intake Total 236 827 Output Total 600 450 Balance 236 -600 377 Intake: Oral 236 827 Output: Urine 600 450 Other: # Voids 2 0 3 # Bowel Movements 1 - Constitutional General appearance: Present: no acute distress - Gastrointestinal General gastrointestinal: Present: soft. Absent: tenderness - Psychiatric Psychiatric: Present: A&O x's 3 - Labs CBC & Chem 7: 12/15/22 05:37 12/15/22 05:37 Labs: Abnormal Lab Results - Last 24 Hours (Table) 12/14/22 12/15/22 12/15/22 Range/Units 19:55 05:37 05:37 WBC 2.42 L (4.50-10.00) X 10*3/uL RBC 2.30 L (4.40-5.60) X 10*6/uL Hgb 8.3 L (13.0-17.0) d/dL Hct 25.4 L (39.6-50.0) % MCV 110.4 H (80.0-97.0) FL MCH 36.1 H (27.0-32.0) pg RDW 15.4 H (11.5-14.5) % Plt Count 37 L (140-440) X 10*3/uL MPV 13.2 H (9.5-12.2) FL Neutrophils # 1.31 L (1.80-7.70) X 10*3/uL Lymphocytes # 0.76 L (0.90-5.00) X 10*3/uL Immature Plt Fraction 12.0 H (1.1-6.1) % Macrocytosis (manual) 3+ A Elliptocytes 2+ A Chloride 111 H (96-109) mmol/L Est GFR (CKD-EPI) 49 L (>=60) BUN/Creatinine Ratio 11.53 L (12.00-20.00) Ratio Glucose 132 H (70-110) mg/dL POC Glucose (mg/dL) 183 H (70-110) mg/dL Calcium 7.9 L (8.7-10.3) mg/dL Iron 57 L (65-175) UG/DL Transferrin 180.0 L (204.0-354.0) mg/dL Alkaline Phosphatase 166 H (41-126) U/L Total Protein 5.4 L (6.2-8.2) d/dL Albumin 2.7 L (3.8-4.9) d/dL Albumin/Globulin Ratio 1.00 L (1.60-3.17) Ratio Vitamin B12 1252.0 H (200.0-944.0) pg/mL 12/15/22 12/15/22 Range/Units 06:22 12:13 WBC (4.50-10.00) X 10*3/uL RBC (4.40-5.60) X 10*6/uL Hgb (13.0-17.0) d/dL Hct (39.6-50.0) % MCV (80.0-97.0) FL MCH (27.0-32.0) pg RDW (11.5-14.5) % Plt Count (140-440) X 10*3/uL MPV (9.5-12.2) FL Neutrophils # (1.80-7.70) X 10*3/uL Lymphocytes # (0.90-5.00) X 10*3/uL Immature Plt Fraction (1.1-6.1) % Macrocytosis (manual) Elliptocytes Chloride (96-109) mmol/L Est GFR (CKD-EPI) (>=60) BUN/Creatinine Ratio (12.00-20.00) Ratio Glucose (70-110) mg/dL POC Glucose (mg/dL) 141 H 134 H (70-110) mg/dL Calcium (8.7-10.3) mg/dL Iron (65-175) UG/DL Transferrin (204.0-354.0) mg/dL Alkaline Phosphatase (41-126) U/L Total Protein (6.2-8.2) d/dL Albumin (3.8-4.9) d/dL Albumin/Globulin Ratio (1.60-3.17) Ratio Vitamin B12 (200.0-944.0) pg/mL Assessment and Plan Assessment: 72-year-old with history of gross hematuria admitted to the hospital with 1 week history of gross hematuria. Does have history of chronic thrombocytopenia. His hemoglobin is 9.3 his baseline is around 12. Patient is also on Xarelto last dose was on December 12. Discussed with him he will require an evaluation for a his gross hematuria. But discussed his Xarelto and his thrombocytopenia is contributing to his hematuria. Of note he also has history of liver cirrhosis secondary to hep C. Imagery improving this morning. CT showed no upper tract pathology -Continue to hold Xarelto -Okay for discharge from urology standpoint, F/U as an outpatient in 1-2 weeks for cystoscopy
--- NOTE | 2022-12-16 | P.DS ---
Providers Date of admission: 12/13/22 23:46 Attending physician: Radha Das Consults: 12/13/22 23:46 Consult Physician Routine Consulting Provider: South Mckenzie Consult Reason/Comments: Hematuria Do you want consulting provider notified?: Yes 12/14/22 15:32 Consult Physician Routine Consulting Provider: Daniel Matthews Consult Reason/Comments: low hgb and Platelets Do you want consulting provider notified?: Yes Primary care physician: Aristides Mena [place] Hospital Course: Diagnoses: Acute blood loss anemia secondary to hematuria. Chronic anemia and thrombocytopenia Hepatitis C s/p treatment x3 Liver cirrhosis, with splenomegaly Right lung density, she will follow up with the hematology/oncology team for outpatient PET scan. Patient states was discussed with oncology team Macrocytosis Chronic atrial fibrillation on anticoagulation with Xarelto Coronary artery history of stent placement Asthma/COPD not in exacerbation History of DVT GERD Osteoarthritis History of AAA repair Chronic low back pain and neck pain. History of gout Chronic numbness of right lower extremity Morbid obesity with a BMI of 41.8 Hospital course: Patient is a 72-year-old male with a known history of atrial fibrillation on anticoagulation with Xarelto, chronic anemia, thrombocytopenia, hepatitis C treated 3 times, liver cirrhosis history of DVT on blood thinner at home, depression and prior history of smoking and prior history of COVID-19 in February [address] [facility]. Patient states that he has been having blood in the urine for the past 1 week and also having blood clots. Patient is currently on Xarelto for atrial fibrillation. He went to see his manager rail Dr. Gooden for routine follow-up about one week ago and Dr. Gooden increased his Xarelto and double the dose area patient after that started having immaturity of and he came to the hospital. Patient evaluated by hematology and oncology team as well as urology service. I discussed the case with hematology service today and they cleared and recommended to hold Xarelto/blood thinner for now for his hematuria, and platelet count less than 50,000, and the recommend patient follow up with his manager rail Dr. Gooden in one week for management fibrillation, patient informed and he verbalized understanding and acceptance. Risks benefits and alternatives are explained for the patient extensively including the risk of thrombosis of bleeding and he verbalized understanding and acceptance with the current management As per my discussion with hematology/oncology team the recommend PET scan as an outpatient for his right lung lesion. With CTA of the chest showing right lung density 1.7 x 2.4 cm, patient informed and he verbalized understanding and acceptance. Risks including but not limited cancer explained for him as well. Patient today was doing well and denies any specific symptoms. And he can resume his hematuria every day is improving and becoming more clear. He denies any suprapubic or flank pain. No fever. No leukocytosis. Hemoglobin is stable at 8.3. Platelet count 37,000 and creatinine 1.5, which is at baseline. Patient was cleared for discharge by both urology and hematology/oncology teams. Problems and management plan were discussed with the patient and he verbalized understanding and acceptance Patient was found stable and can be discharged home in guarded prognosis however he needs follow-up as an outpatient. Patient was instructed to follow up with PCP Dr. Mena within one week and patient agrees Patient was instructed to follow up with band tumbler Dr. Matthews/Dr. De Leon in one week and he verbalized understanding and acceptance At the follow-up with urologist Dr. Mckenzie in 1-2 weeks and he verbalized understanding and acceptance Patient was instructed to follow up with manager rail Dr. Gooden in one week and he is agreeable. Physical exam Gen: patient is a AAOx3, no distress CVS: S1-S2, RRR, no murmur Lungs: B/L CTA, no wheezing Abdomen: soft, no distention, no tenderness, positive bowel sounds Extremity: no leg edema or induration gait: At baseline, normal Time spent more than 35 minutes Patient Condition at Discharge: Stable Plan - Discharge Summary New Discharge Prescriptions: New Acetaminophen Tab [Tylenol] 650 mg PO Q6HR PRN tab PRN Reason: Mild Pain Or Fever > 100.5 Ferrous Sulfate [Iron (65 MG Elemental)] 325 mg PO BID-W/MEALS #60 tab Continue Nitroglycerin Sl Tabs [Nitrostat] 0.4 mg PO Q5M PRN PRN Reason: Chest Pain carvediloL [Coreg] 6.25 mg PO BID-W/MEALS #60 tab Cyanocobalamin [Vitamin B-12] 1,000 mcg PO DAILY #30 tab Albuterol Inhaler [Ventolin Hfa Inhaler] 2 puff INHALATION RT-Q6H PRN PRN Reason: Shortness Of Breath Cholecalciferol [Vitamin D3 (25 Mcg = 1000 Iu)] 50 mcg PO DAILY allopurinoL [Zyloprim] 300 mg PO DAILY Famotidine [Pepcid] 20 mg PO DAILY Folic Acid 1 mg PO DAILY Glucagon [Gvoke Pfs 1-Pack Syringe] 1 mg SQ DIRECTED PRN PRN Reason: Blood Sugar - Low Insulin Degludec [Tresiba Flextouch U-100 Pen] 30 units SQ HS Potassium Chloride [Klor-Con M10] 10 meq PO BID Ascorbic Acid [Vitamin C] 500 mg PO DAILY #30 tab Alfuzosin HCl [Alfuzosin HCl ER] 10 mg PO HS calcitrioL [Calcitriol] 0.25 mcg PO Q7D Torsemide [Demadex] 20 mg PO BID Discontinued Rivaroxaban [Xarelto] 10 mg PO HS #30 tab Discharge Medication List Nitroglycerin Sl Tabs [Nitrostat] 0.4 mg PO Q5M PRN 08/31/19 [History] Cyanocobalamin [Vitamin B-12] 1,000 mcg PO DAILY #30 tab 11/23/19 [Rx] carvediloL [Coreg] 6.25 mg PO BID-W/MEALS #60 tab 11/23/19 [Rx] Albuterol Inhaler [Ventolin Hfa Inhaler] 2 puff INHALATION RT-Q6H PRN 01/31/21 [History] Cholecalciferol [Vitamin D3 (25 Mcg = 1000 Iu)] 50 mcg PO DAILY 01/31/21 [History] Ascorbic Acid [Vitamin C] 500 mg PO DAILY #30 tab 02/04/21 [Rx] Alfuzosin HCl [Alfuzosin HCl ER] 10 mg PO HS 12/14/22 [History] Famotidine [Pepcid] 20 mg PO DAILY 12/14/22 [History] Folic Acid 1 mg PO DAILY 12/14/22 [History] Glucagon [Gvoke Pfs 1-Pack Syringe] 1 mg SQ DIRECTED PRN 12/14/22 [History] Insulin Degludec [Tresiba Flextouch U-100 Pen] 30 units SQ HS 12/14/22 [History] Potassium Chloride [Klor-Con M10] 10 meq PO BID 12/14/22 [History] Torsemide [Demadex] 20 mg PO BID 12/14/22 [History] allopurinoL [Zyloprim] 300 mg PO DAILY 12/14/22 [History] calcitrioL [Calcitriol] 0.25 mcg PO Q7D 12/14/22 [History] Acetaminophen Tab [Tylenol] 650 mg PO Q6HR PRN tab 12/15/22 [Rx] Ferrous Sulfate [Iron (65 MG Elemental)] 325 mg PO BID-W/MEALS #60 tab 12/15/22 [Rx] Follow up Appointment(s)/Referral(s): Riley Thorpe MD [STAFF PHYSICIAN] - 12/22/22 9:00 am (Follow up regarding when to resume Xarelto.) Daniel Matthews [STAFF PHYSICIAN] - 1 Week (Office will call with appointment time and date.) South Mckenzie MD [STAFF PHYSICIAN] - 12/29/22 10:20 am (Follow up in 1 week and schedule outpatient cystoscopy. Hold Xarelto for three days prior to cystoscopy. Appointment will be with ) Aristides Mena DO [Primary Care Provider] - 1-2 days [facility] Visiting Nurse, [NON-STAFF] - 1 Week Patient Instructions/Handouts: Hematuria (GEN) Activity/Diet/Wound Care/Special Instructions: Heart healthy diet Activity is restricted till you see your doctor We like you to hold the blood thinner (Xarelto) till you see your doctor davi ,manager rail Recommended follow-up with manager rail Dr. Gooden in one week. Discharge Disposition: HOME WITH HOME HEALTH SERVICES
--- NOTE | 2022-12-17 08:30 | P.CONS ---
History of Present Illness - Reason for Consult Consult date: 12/15/22 anemia and thrombocytopenia Requesting physician: South Mckenzie - Chief Complaint hematuria, bicytopenia - History of Present Illness Patient is a 72 year old male with multiple comorbidities. Consult was placed for pancytopenia. Patient was initially seen in consult at [facility] on 11/2019. The patient has a known history of chronic thrombocytopenia with baseline plt count usually in the 40,000 range, as well as WBC 2.5-3.5. He also has a known history of hepatitis C and liver cirrhosis. The patient had workup in the hospital for other causes of pancytopenia, which was negative and therefore the above findings were felt to be due to the chronic liver disease. The patient had an endovascular aortic aneurysm repair in 10/24. He was placed on eliquis but then stopped it because he developed a rash. The patient has a history of paroxysmal A. fib. The case was discussed with cardiology indicated that they would definitely prefer that the patient continue on anticoagulation. He was started back on anticoagulation with Pradaxa inpatient. As platelets were less than 50,000, The patient received platelet transfusions. He was then seen for his first office visit on 11/26/19. Workup indicated low platelet counts due to liver cirrhosis. It was discussed with the patient that in this situation, there was no approved method available to increase platelet counts in a stable manner over the long-term, other than a splenectomy. Therefore the decision to continue anticoagulation would be based on risk versus benefit. As platelet counts were mostly above 40,000, it was ultimately decided to continue anticoagulation with full understanding of risk versus benefit expressed by the patient. His anticoagulation regimen was changed to xarelto, as he apparently was having hypersensitivity to Pradaxa. Patient platelets continued to fluctuate, and it was recommended if his platelet counts remain below 40,000 regularly, then we would have to consider stoppage of anticoagulation, based on risk-benefit. Patient was lost to f/u in 05/2020. Patient has f/u with GI in the past for his Hepatitis C, and last received treatment approx 4-5 years ago, but stopped following up. Hep C was not detectable in 08/2017. Patient presented to the emergency room with complaints of hematuria. Patient reports hematuria has been ongoing for approximately 1 week. He reports he was having dysuria prior to this and was started on oral antibiotics for possible UTI and then began experiencing hematuria with blood clots. Of note patient was recently seen by his button sewer hand and his Xarelto was increased from 10 mg daily to 20 mg daily. Patient states 3 days after the dose increase he began experiencing hematuria. Patient also reports chills but did not take his temperature so is unsure if he was experiencing a fever. He denies abdominal pain, nausea vomiting and diarrhea. Denies rectal bleeding and melena. At today's visit patient is reporting and reporting improvement in symptoms, denies clots in urine and states hematuria is improving. Urology has been consulted and plans for cystoscopy in the outpatient setting. UA positive for hematuria. CBC revealed macrocytic normochromic anemia with a hemoglobin of 8.3. WBC 2.4. Platelets 37,000. Xarelto has been held. Iron studies revealed ferritin 90, iron saturation 22%. Vitamin B12 1252. Folate 1075. CT abdomen and pelvis without contrast revealed splenomegaly and urinary bladder diverticulum. There is also incidental finding of interval development of a posterior medial right mid lung nodule measuring 1.[address] findings were discussed with patient. He reports he has a [id number] history of smoking but quit approximately 12 years ago. Denies unintentional weight loss and night sweats. Denies cough and hemoptysis. Review of Systems 10 point ROS is negative except as stated in the HPI Past Medical History Past Medical History: Atrial Fibrillation, Asthma, Heart Failure, COPD, Deep Vein Thrombosis (DVT), GERD/Reflux, Hypertension, Liver Disease, Osteoarthritis (OA), Pneumonia, Renal Disease Additional Past Medical History / Comment(s): Other hx: Pt states L wrist pain now goes all the way up L arm, recent AAA surgery, chronic chf, bronchitis, liver cirrhosis, hepatitis C treated 3 times, CKD stage III, anemia, thrombocytopenia, pancytopenia-pt recently saw Dr. Matthews, pt states recently told he has diabetes, numbness R lower leg, chronic gout bilateral feet, UTI, chronic low back pain, cervical pain History of Any Multi-Drug Resistant Organisms: None Reported Past Surgical History: Heart Catheterization With Stent, Hernia Repair, Orthopedic Surgery Additional Past Surgical History / Comment(s): Percutaneous endovascjlar abdominal aortic anuerysm repair, EGD, colonoscopies, bilateral cataract removals/lens implants, R shoulder rotator cuff repair, umbilical hernia repair. Past Anesthesia/Blood Transfusion Reactions: Motion Sickness Additional Past Anesthesia/Blood Transfusion Reaction / Comm: Pt has received blood without reaction. Date of Last Stent Placement:: 01/2020 Past Psychological History: Depression Additional Psychological History / Comment(s): Pt states depression comes and goes. Pt lives alone with a dog and cat. [facility] in the past. He has been using a cane. Smoking Status: Former smoker Past Alcohol Use History: Occasional Additional Past Alcohol Use History / Comment(s): Pt started smoking in 1963 and quit in 2004. He has not drank since 2004-he drank occasionally. Past Drug Use History: Marijuana Additional Drug Use History / Comment(s): Quit smoking adelfo 05/24/20. He as lo uses CBD oil - Past Family History Mother Family Medical History: Cancer Additional Family Medical History / Comment(s): Mother of liver cancer. Father Family Medical History: Myocardial Infarction (UT) Additional Family Medical History / Comment(s): Father of a UT at the age of 48yrs. Medications and Allergies Home Medications Medication Instructions Recorded Confirmed Type Nitroglycerin Sl Tabs [Nitrostat] 0.4 mg PO Q5M PRN 08/31/19 12/14/22 History Cyanocobalamin [Vitamin B-12] 1,000 mcg PO DAILY #30 tab 11/23/19 12/14/22 Rx carvediloL [Coreg] 6.25 mg PO BID-W/MEALS #60 tab 11/23/19 12/14/22 Rx Albuterol Inhaler [Ventolin Hfa 2 puff INHALATION RT-Q6H PRN 01/31/21 12/14/22 History Inhaler] Cholecalciferol [Vitamin D3 (25 50 mcg PO DAILY 01/31/21 12/14/22 History Mcg = 1000 Iu)] Ascorbic Acid [Vitamin C] 500 mg PO DAILY #30 tab 02/04/21 12/14/22 Rx Alfuzosin HCl [Alfuzosin HCl ER] 10 mg PO HS 12/14/22 12/14/22 History Famotidine [Pepcid] 20 mg PO DAILY 12/14/22 12/14/22 History Folic Acid 1 mg PO DAILY 12/14/22 12/14/22 History Glucagon [Gvoke Pfs 1-Pack Syringe] 1 mg SQ DIRECTED PRN 12/14/22 12/14/22 History Insulin Degludec [Tresiba 30 units SQ HS 12/14/22 12/14/22 History Flextouch U-100 Pen] Potassium Chloride [Klor-Con M10] 10 meq PO BID 12/14/22 12/14/22 History Torsemide [Demadex] 20 mg PO BID 12/14/22 12/14/22 History allopurinoL [Zyloprim] 300 mg PO DAILY 12/14/22 12/14/22 History calcitrioL [Calcitriol] 0.25 mcg PO Q7D 12/14/22 12/14/22 History Acetaminophen Tab [Tylenol] 650 mg PO Q6HR PRN tab 12/15/22 Rx Ferrous Sulfate [Iron (65 MG 325 mg PO BID-W/MEALS #60 tab 12/15/22 Rx Elemental)] Allergies Allergy/AdvReac Type Severity Reaction Status Date / Time apixaban [From Eliquis] Allergy Rash/Hives Verified 12/14/22 10:33 codeine Allergy Rash/Hives Verified 12/14/22 10:33 dabigatran etexilate Allergy Rash/Hives Verified 12/14/22 10:33 [From Pradaxa] ibuprofen Allergy Unknown Verified 12/14/22 10:33 midodrine Allergy Rash/Hives Verified 12/14/22 10:33 Physical Exam Vitals: Vital Signs Temp Pulse Resp BP Pulse Ox 12/15/22 13:30 97.9 F 61 17 135/69 99 12/15/22 07:00 98.1 F 63 17 115/65 99 12/15/22 06:24 56 L 109/69 12/15/22 01:03 98.1 F 67 16 114/64 99 12/14/22 19:53 97.7 F 60 18 151/72 99 Intake and Output 12/15/22 12/15/22 12/15/22 06:59 14:59 22:59 Intake Total 827 Output Total 600 450 Balance -600 377 Intake: Oral 827 Output: Urine 600 450 Other: # Voids 3 - Constitutional General appearance: no acute distress, obese - EENT Eyes: anicteric sclerae, EOMI ENT: hearing grossly normal - Neck Neck: no lymphadenopathy - Respiratory Respiratory: bilateral: CTA - Cardiovascular skin warm and dry Heart sounds: normal: S1, S2 Abnormal Heart Sounds: no systolic murmur, no diastolic murmur, no rub, no S3 Gallop, no S4 Gallop, no click, no other - Gastrointestinal General gastrointestinal: soft, no tenderness - Integumentary Integumentary: no cyanotic, no jaundiced - Musculoskeletal Musculoskeletal: strength equal bilaterally - Psychiatric Psychiatric: A&O x's 3, appropriate affect, intact judgment & insight Results CBC & Chem 7: 12/15/22 05:37 12/15/22 05:37 Labs: Abnormal Lab Results - Last 24 Hours (Table) 12/14/22 12/14/22 12/15/22 Range/Units 17:26 19:55 05:37 WBC (4.50-10.00) X 10*3/uL RBC (4.40-5.60) X 10*6/uL Hgb (13.0-17.0) d/dL Hct (39.6-50.0) % MCV (80.0-97.0) FL MCH (27.0-32.0) pg RDW (11.5-14.5) % Plt Count (140-440) X 10*3/uL MPV (9.5-12.2) FL Neutrophils # (1.80-7.70) X 10*3/uL Lymphocytes # (0.90-5.00) X 10*3/uL Immature Plt Fraction (1.1-6.1) % Macrocytosis (manual) Elliptocytes Chloride 111 H (96-109) mmol/L Est GFR (CKD-EPI) 49 L (>=60) BUN/Creatinine Ratio 11.53 L (12.00-20.00) Ratio Glucose 132 H (70-110) mg/dL POC Glucose (mg/dL) 165 H 183 H (70-110) mg/dL Calcium 7.9 L (8.7-10.3) mg/dL Iron 57 L (65-175) UG/DL Transferrin 180.0 L (204.0-354.0) mg/dL Alkaline Phosphatase 166 H (41-126) U/L Total Protein 5.4 L (6.2-8.2) d/dL Albumin 2.7 L (3.8-4.9) d/dL Albumin/Globulin Ratio 1.00 L (1.60-3.17) Ratio Vitamin B12 1252.0 H (200.0-944.0) pg/mL 12/15/22 12/15/22 12/15/22 Range/Units 05:37 06:22 12:13 WBC 2.42 L (4.50-10.00) X 10*3/uL RBC 2.30 L (4.40-5.60) X 10*6/uL Hgb 8.3 L (13.0-17.0) d/dL Hct 25.4 L (39.6-50.0) % MCV 110.4 H (80.0-97.0) FL MCH 36.1 H (27.0-32.0) pg RDW 15.4 H (11.5-14.5) % Plt Count 37 L (140-440) X 10*3/uL MPV 13.2 H (9.5-12.2) FL Neutrophils # 1.31 L (1.80-7.70) X 10*3/uL Lymphocytes # 0.76 L (0.90-5.00) X 10*3/uL Immature Plt Fraction 12.0 H (1.1-6.1) % Macrocytosis (manual) 3+ A Elliptocytes 2+ A Chloride (96-109) mmol/L Est GFR (CKD-EPI) (>=60) BUN/Creatinine Ratio (12.00-20.00) Ratio Glucose (70-110) mg/dL POC Glucose (mg/dL) 141 H 134 H (70-110) mg/dL Calcium (8.7-10.3) mg/dL Iron (65-175) UG/DL Transferrin (204.0-354.0) mg/dL Alkaline Phosphatase (41-126) U/L Total Protein (6.2-8.2) d/dL Albumin (3.8-4.9) d/dL Albumin/Globulin Ratio (1.60-3.17) Ratio Vitamin B12 (200.0-944.0) pg/mL CT scan - abdomen: report reviewed CT scan - pelvis: report reviewed Assessment and Plan (1) Hematuria Status: Acute Priority: High Code(s): R31.9 - HEMATURIA, UNSPECIFIED SNOMED Code(s): 08719703 (2) Pancytopenia Status: Acute Priority: High Code(s): D61.818 - OTHER PANCYTOPENIA SNOMED Code(s): 576137577 (3) Lung nodule seen on imaging study Status: Acute Priority: Medium Code(s): R91.1 - SOLITARY PULMONARY NODULE SNOMED Code(s): 459809676 Plan: Hematuria: -Sx ongoing for 1 week, improving. UA positive for hematuria. Sx occurred 3 days after Xarelto was increased by his button sewer hand. Xarelto has been held due to anemia and thrombocytopenia -CT abdomen and pelvis without contrast revealed splenomegaly and urinary bladder diverticulum -Urology consulted, plan for cytoscopy in the outpt setting Pancytopenia: -Has been worked up for the same in the past with Dr. Matthews. Patient has a known history of chronic thrombocytopenia with baseline plt count usually in the 40,000 range, as well as WBC 2.5-3.5. He also has a known history of hepatitis C and liver cirrhosis. The patient had workup in the hospital for other causes of pancytopenia, which was negative and therefore the above findings were felt to be due to the chronic liver disease. He was also worked up in clinic, and workup indicated low platelet counts due to liver cirrhosis -It was discussed with the patient that in this situation, there was no approved method available to increase platelet counts in a stable manner over the long- term, other than a splenectomy. And that the decision to continue anticoagulation would be based on risk versus benefit. -CBC this admission shows macrocytic normochromic anemia with a hemoglobin of 8.3. WBC 2.4, and platelets 37,000. His Xarelto has been held due to thrombocytopenia -Iron studies revealed ferritin 90, iron saturation 22%. Vitamin B12 1252. Folate 1075 -Discussed case with IM team and recommend to hold anticoagulation if plts less than 50K, and to have close f/u upon discharge with cardiology for anticoagulation management -Also recommend GI f/u for management of Hep C/liver disease Lung Nodule: -CT abdomen and pelvis without contrast was obtained and there was incidental finding of interval development of a posterior medial right mid lung nodule measuring 1.7 x 2.4 cm -Hx [id number] smoker, quitting approximately 12 years ago. Denies unintentional weight loss and night sweats. Denies cough and hemoptysis -Will schedule PET CT outpt and f/u with Dr. Matthews for further evaluation and recommendations pending workup
== END 2022-12-15 15:48 | disposition home health service (06) ==
LOC: EC 21:04 → 6NMEDSUR 23:46
PROVIDERS: ADMIT Hospitalist; ATTEND Hospitalist
DX: R31.0 Gross hematuria (principal); D62 Acute posthemorrhagic anemia; D69.6 Thrombocytopenia, unspecified; D61.818 Other pancytopenia; R91.1 Solitary pulmonary nodule; J44.9 Chronic obstructive pulmonary disease, unspecified; K21.9 Gastro-esophageal reflux disease without esophagitis; D75.89 Other specified diseases of blood and blood-forming organs; K74.60 Unspecified cirrhosis of liver; R16.1 Splenomegaly, not elsewhere classified; I13.0 Hypertensive heart and chronic kidney disease with heart failure and stage 1 through stage 4 chronic kidney disease, or unspecified chronic kidney disease; I50.9 Heart failure, unspecified; N18.30 Chronic kidney disease, stage 3 unspecified; D63.1 Anemia in chronic kidney disease; G89.29 Other chronic pain; M54.2 Cervicalgia; M54.9 Dorsalgia, unspecified; F32.A Depression, unspecified; I48.0 Paroxysmal atrial fibrillation; R20.0 Anesthesia of skin; M1A.9XX0 Chronic gout, unspecified, without tophus (tophi); E66.01 Morbid (severe) obesity due to excess calories; Z68.41 Body mass index [BMI] 40.0-44.9, adult; Z86.16 Personal history of COVID-19; Z86.19 Personal history of other infectious and parasitic diseases; Z86.718 Personal history of other venous thrombosis and embolism; Z86.79 Personal history of other diseases of the circulatory system; Z87.891 Personal history of nicotine dependence; Z79.01 Long term (current) use of anticoagulants; Z79.899 Other long term (current) drug therapy; Z88.5 Allergy status to narcotic agent; Z88.6 Allergy status to analgesic agent; Z95.5 Presence of coronary angioplasty implant and graft
CPT/HCPCS: 96372; 99285; 86900; 86901; 82747; 80053 ×2; 82607; 82728; 83540; 83550; 85025 ×2; 85610; 85730; 86850; 81001; 74176; G0378 ×3

== ENCOUNTER → 2023-01-14 | Outpatient (CLI) | payer MEDICARE ==
--- NOTE | 2023-01-15 08:50 | PE ---
EXAMINATION TYPE: PET CT fusion skull to thigh DATE OF EXAM: 01/14/2023 CLINICAL INDICATION:Male, 72 years old with history of R91.1 LUNG NODULE; TECHNIQUE: Following the intravenous administration of 9.3 mCi of F-18 FDG, whole body images are p erformed from the skull base to the midthigh. Images are reviewed on the computer in the coronal, ax ial, and sagittal planes. Reconstructed rotating images are created on independent workstation and r eviewed on the computer. A non-contrast CT is performed in conjunction with the PET scan. Glucose l evel 116 mg/dL CT DLP: 1138 mGycm, Automated exposure control for dose reduction was used. COMPARISON: CT 12/14/2022, 01/20/2019, PET/CT None, FINDINGS: Mediastinal SUV mean is 3.5 . Hepatic parenchyma SUV mean is 4.2. SKULL BASE AND NECK: No suspicious radiotracer activity. CHEST, MEDIASTINUM, AND HILAR REGION: Right lower lobe posterior medial pulmonary nodule which is bilobed and has a few foci of gas within the bilobed nodule itself. In totality this measures 23 x 15 mm which is similar morphology to prior on 12/14/2022. Max SUV 3.7. ABDOMEN AND PELVIS: No suspicious radiotracer activity. MUSCULOSKELETAL STRUCTURES: No suspicious radiotracer activity. OTHER CT: Bilaterally aphakia. Atherosclerosis at the carotid bifurcations. Heart is mildly enlarged for size. Mild gynecomastia changes bilaterally. Aortic stent graft present. Splenomegaly. Scattered colonic diverticula. Left posterior lateral suspected bladder diverticula. Calcification of the prost ate gland. Aortobiiliac stent graft is present. IMPRESSION: Right lower lobe medial pulmonary nodule with SUV values near background levels. Findings are indeter minate. This could represent post infectious/inflammatory process versus malignancy felt to be less l ikely but not excluded. Short-term follow-up in [address] chest recommended to ensure stabilit y/resolution.
== END | disposition home or self-care (01) ==
LOC: RADPETMAIN 13:59
PROVIDERS: ATTEND Internal Medicine Hematology & Oncology
DX: R91.1 Solitary pulmonary nodule (principal)
CPT/HCPCS: 78815; A9552

== ENCOUNTER → 2023-02-15 | Outpatient (CLI) | payer MEDICARE ==
[2023-02-15 12:42] LABS: Creatinine,Urine Random 64.6 mg/dL; Protein/Creatinine Ratio,Urine 0.17
[2023-02-15 15:54] LABS: Appearance,Urine Clear (Clear); Bilirubin,Urine Negative (Negative); Blood,Urine Trace (Negative); Color,Urine Yellow (Yellow); Ketones,Urine Negative (Negative); Nitrite,Urine Negative (Negative)
[2023-02-15 16:11] LABS: Iron 74 UG/DL (65-175); Phosphorus 2.8 mg/dL (2.4-5.1); Total Iron Binding Capacity 319 UG/DL (228-460); Uric Acid 7.5 mg/dL (3.7-8.7)
[2023-02-15 16:12] LABS: Albumin 3.3 g/dL (3.8-4.9); BUN/Creat Ratio 11.67 Ratio (12.00-20.00); Calcium 8.7 mg/dL (8.7-10.3); Carbon Dioxide 27.2 mmol/L (21.6-31.8); Chloride 104 mmol/L (96-109); Ferritin 89.4 ng/mL (22.0-322.0); Glucose 229 mg/dL (70-110); Potassium 3.7 mmol/L (3.5-5.5); Sodium 141 mmol/L (135-145)
[2023-02-15 16:28] LABS: Bacteria,Urine None Seen (None Seen)
[2023-02-15 18:15] LABS: HGB 11.7 g/dL (13.0-17.0); Immature Platelet Fraction 9.2 % (1.1-6.1); MCH 36.1 pg (27.0-32.0); MCHC 33.4 g/dL (32.0-37.0); Mean Platelet Volume 12.9 FL (9.5-12.2); NRBC Per 100 WBC 0 X 10*3/uL (0.00-0.01); Platelet Count 28 X 10*3/uL (140-440); RBC 3.24 X 10*6/uL (4.40-5.60); RDW 15.2 % (11.5-14.5); WBC 1.87 X 10*3/uL (4.50-10.00)
[2023-02-15 18:58] LABS: Basophils # (M) 0.04 X 10*3/uL (0.00-0.10); Elliptocytes 2+; Eosinophils # (M) 0.15 X 10*3/uL (0.04-0.35); Lymphocytes # (M) 0.28 X 10*3/uL (0.90-5.00); Macrocytosis (M) 2+; Monocytes # (M) 0.11 X 10*3/uL (0.20-1.00); Neutrophils # (M) 1.29 X 10*3/uL (1.80-7.70); Neutrophils % (M) 69 %
== END | disposition home or self-care (01) ==
LOC: LABWHC1 10:58
PROVIDERS: ATTEND Nurse Practitioner Family
DX: N18.31 Chronic kidney disease, stage 3a (principal); D63.1 Anemia in chronic kidney disease; E55.9 Vitamin D deficiency, unspecified; N25.81 Secondary hyperparathyroidism of renal origin; N39.0 Urinary tract infection, site not specified; M10.9 Gout, unspecified; R80.9 Proteinuria, unspecified
CPT/HCPCS: 36415; 80048; 81001; 82040; 82306; 82570; 82728; 83540; 83550; 83735; 83970; 84100; 84156; 84550; 85025; 87086

== ENCOUNTER → 2023-03-17 | Outpatient (CLI) | payer MEDICARE ==
[2023-03-17 11:40] LABS: African American GFR (CKD) 44 (>60 ml/min/1.73 sqM); Blood Urea Nitrogen 27 mg/dL (9-20); Non-African American GFR(CKD) 38 (>60 ml/min/1.73 sqM)
--- NOTE | 2023-03-17 14:43 | CT ---
EXAMINATION TYPE: CT chest wo con CT DLP: 636.80 mGycm, Automated exposure control for dose reduction was used. DATE OF EXAM: 03/17/2023 12:32 PM COMPARISON: CT abdomen 12/14/2022, PET/CT 01/14/2023 . CLINICAL INDICATION:Male, 72 years old with history of R91.1 SOLITARY PULMONARY NODULE; PH[facility], SOLITARY PULMONARY NODULE TECHNIQUE: Multiple axial images were obtained through the chest. Sagittal and coronal reformats were created for review. Contrast used: mL of (None if empty) Oral contrast used: (None if empty) FINDINGS: Exam is limited by lack of contrast. LUNGS/ PLEURA: In the right lower lobe posteromedially, redemonstration of a bilobed noncalcified sub pleural nodule with small focus of gas or bronchiole within, measuring 22 x 14 mm series 4 image 38, unchanged since the initial CT. A slightly stellate 8 mm nodular density in the anterior right lower lobe image 34 series 4 is not clearly depicted on the prior PET/CT (and not in the scope of the prior CT). Small wispy area of presumed scarring posteriorly on the right image 44 is stable. Moderate emp hysematous changes with areas of scarring most conspicuous in the left upper lobe and medial right up per lobe, similar to before. No lung consolidation, pleural effusion, or pneumothorax. AIRWAY: Central airways are patent. LOWER NECK: No significant findings. MEDIASTINUM: No gross evidence of adenopathy. Evaluation for hilar adenopathy is limited without con trast but none is seen. HEART: Mild cardiomegaly. Moderate coronary artery calcification and/or stents. No appreciable perica rdial effusion. VASCULATURE: Mild to moderate atherosclerotic calcifications of the aorta and branches. Ascending ao rta is 4.4 CM, descending is 3.1 CM. Aorta is considered ectatic. Pulmonary trunk measures 3.1 CM. Pulmonary trunk is mildly enlarged, correlate clinically for develop ing pulmonary hypertension. SOFT TISSUES/LYMPH NODES: There is moderate bilateral gynecomastia. No axillary adenopathy. UPPER ABDOMEN: Spleen is bulky and enlarged measuring at least 18.8 cm. Included liver appears somewh at small and potentially cirrhotic. Partially seen aortic stent. MUSCULOSKELETAL: No acute osseous abnormalities. Mild disc degeneration changes are present throughou t the thoracolumbar spine. At the T8-T9 level there is heterogeneous sclerosis of the endplates with central Schmorl's nodes along each, unchanged from the prior CT and presumed chronic/degenerative. No clear-cut destructive osseous change. IMPRESSION: 1. Stable bilobed 22 x 14 mm right lower lobe pulmonary nodule. 2. An 8 mm stellate nodular density in the superior right lower lobe near the oblique fissure, not c learly seen on the prior PET/CT. Etiology indeterminate. RECOMMENDATION: Short-term follow-up chest CT in about 3-6 months to reassess the above.
== END | disposition home or self-care (01) ==
LOC: RADCTMAIN 10:58
PROVIDERS: ATTEND Internal Medicine Hematology & Oncology
DX: J98.4 Other disorders of lung (principal); J44.9 Chronic obstructive pulmonary disease, unspecified; R91.1 Solitary pulmonary nodule; I10 Essential (primary) hypertension; D69.59 Other secondary thrombocytopenia
CPT/HCPCS: 36415; 71250; 82565; 84520

== ENCOUNTER 2023-05-01 18:51 | Emergency (ER) | payer MEDICARE ==
--- NOTE | 2023-05-01 19:32 | ED ---
Extremity Problem HPI - General Chief complaint: Extremity Problem,Nontraumatic Stated complaint: Leg Pain Time Seen by Provider: 05/01/23 19:30 Source: patient, family, RN notes reviewed Mode of arrival: wheelchair Limitations: no limitations - History of Present Illness Initial comments: Patient is a 72-year-old male presented to ER with a chief complaint of right leg pain and swelling. He states he noticed this yesterday and it has increased in intensity. He also states that it is red and hot to touch. Patient is not currently on Eliquis. Denies any recent travel, smoking, history of blood clots. Patient sent here for urgent care to rule out DVT. He also reports that he believes he has a UTI as he is having urinary frequency and dysuria. Patient denies any shortness of breath, chest pain, dizziness, lightheadedness, fevers, chills.. - Related Data Home Medications Medication Instructions Recorded Confirmed Nitroglycerin Sl Tabs [Nitrostat] 0.4 mg PO Q5M PRN 08/31/19 12/14/22 Albuterol Inhaler [Ventolin Hfa 2 puff INHALATION RT-Q6H PRN 01/31/21 12/14/22 Inhaler] Cholecalciferol [Vitamin D3 (25 50 mcg PO DAILY 01/31/21 12/14/22 Mcg = 1000 Iu)] Alfuzosin HCl [Alfuzosin HCl ER] 10 mg PO HS 12/14/22 12/14/22 Famotidine [Pepcid] 20 mg PO DAILY 12/14/22 12/14/22 Folic Acid 1 mg PO DAILY 12/14/22 12/14/22 Glucagon [Gvoke Pfs 1-Pack Syringe] 1 mg SQ DIRECTED PRN 12/14/22 12/14/22 Insulin Degludec [Tresiba 30 units SQ HS 12/14/22 12/14/22 Flextouch U-100 Pen] Potassium Chloride [Klor-Con M10] 10 meq PO BID 12/14/22 12/14/22 Torsemide [Demadex] 20 mg PO BID 12/14/22 12/14/22 allopurinoL [Zyloprim] 300 mg PO DAILY 12/14/22 12/14/22 calcitrioL 0.25 mcg PO Q7D 12/14/22 12/14/22 Previous Rx's Medication Instructions Recorded Cyanocobalamin [Vitamin B-12] 1,000 mcg PO DAILY #30 tab 11/23/19 carvediloL [Coreg] 6.25 mg PO BID-W/MEALS #60 tab 11/23/19 Ascorbic Acid [Vitamin C] 500 mg PO DAILY #30 tab 02/04/21 Acetaminophen Tab [Tylenol] 650 mg PO Q6HR PRN tab 12/15/22 Ferrous Sulfate [Iron (65 MG 325 mg PO BID-W/MEALS #60 tab 12/15/22 Elemental)] Cephalexin [Keflex] 500 mg PO Q6HR 10 Days #40 cap 05/01/23 Allergies Allergy/AdvReac Type Severity Reaction Status Date / Time apixaban [From Eliquis] Allergy Rash/Hives Verified 05/01/23 19:20 codeine Allergy Rash/Hives Verified 05/01/23 19:20 dabigatran etexilate Allergy Rash/Hives Verified 05/01/23 19:20 [From Pradaxa] ibuprofen Allergy Unknown Verified 05/01/23 19:20 midodrine Allergy Rash/Hives Verified 05/01/23 19:20 Review of Systems ROS Statement: Those systems with pertinent positive or pertinent negative responses have been documented in the HPI. ROS Other: All systems not noted in ROS Statement are negative. Past Medical History Past Medical History: Atrial Fibrillation, Asthma, Heart Failure, COPD, Deep Vein Thrombosis (DVT), GERD/Reflux, Hypertension, Liver Disease, Osteoarthritis (OA), Pneumonia, Renal Disease Additional Past Medical History / Comment(s): Other hx: Pt states L wrist pain now goes all the way up L arm, recent AAA surgery, chronic chf, bronchitis, liver cirrhosis, hepatitis C treated 3 times, CKD stage III, anemia, thrombocytopenia, pancytopenia-pt recently saw Dr. Matthews, pt states recently told he has diabetes, numbness R lower leg, chronic gout bilateral feet, UTI, chronic low back pain, cervical pain History of Any Multi-Drug Resistant Organisms: None Reported Past Surgical History: Heart Catheterization With Stent, Hernia Repair, Orthopedic Surgery Additional Past Surgical History / Comment(s): Percutaneous endovascjlar abdominal aortic anuerysm repair, EGD, colonoscopies, bilateral cataract removals/lens implants, R shoulder rotator cuff repair, umbilical hernia repair. Past Anesthesia/Blood Transfusion Reactions: Motion Sickness Additional Past Anesthesia/Blood Transfusion Reaction / Comment(s): Pt has received blood without reaction. Date of Last Stent Placement:: 01/2020 Past Psychological History: Depression Smoking Status: Former smoker Past Alcohol Use History: Occasional Past Drug Use History: Marijuana - Past Family History Mother Family Medical History: Cancer Additional Family Medical History / Comment(s): Mother of liver cancer. Father Family Medical History: Myocardial Infarction ([place]) Additional Family Medical History / Comment(s): Father of a [place] at the age of 48yrs. General Exam Limitations: no limitations General appearance: alert, in no apparent distress Head exam: Present: atraumatic, normocephalic, normal inspection Respiratory exam: Present: normal lung sounds bilaterally. Absent: respiratory distress, wheezes, rales, rhonchi, stridor Cardiovascular Exam: Present: regular rate, normal rhythm, normal heart sounds. Absent: systolic murmur, diastolic murmur, rubs, gallop, clicks Extremities exam: Present: other (Right lower extremity red and warm to touch. 1+ pretibial right pitting edema. 2+ dorsalis pedis pulse bilaterally. Positive Homans on the right negative on left.) Neurological exam: Present: alert, oriented X3, CN II-XII intact Psychiatric exam: Present: normal affect, normal mood Skin exam: Present: warm, dry, intact, normal color. Absent: rash Course Vital Signs 05/01/23 19:18 Temperature 97.8 F Pulse Rate 77 Respiratory 18 Rate Blood Pressure 124/71 O2 Sat by Pulse 96 Oximetry Medical Decision Making - Medical Decision Making Was pt. sent in by a medical professional or institution (Dr. PA, CUSTOMER CARE ASSISTANT, urgent care, hospital, or long term...) When possible be specific @ -No Did you speak to anyone other than the patient for history (EMS, parent, family, police, friend...)? What history was obtained from this source @ -Family Did you review nursing and triage notes (agree or disagree)? Why? @ -I reviewed and agree with nursing and triage notes Were old charts reviewed (outside hosp., previous admission, EMS record, old EKG, old radiological studies, urgent care reports/EKG's, long term records)? Report findings @ -No old charts were reviewed Differential Diagnosis (chest pain, altered mental status, abdominal pain women, abdominal pain men, vaginal bleeding, weakness, fever, dyspnea, syncope, headache, dizziness, GI bleed, back pain, seizure, CVA, palpatations, mental health, musculoskeletal)? @ -Differential Musculoskeletal Muscular strain, contusion, ligament sprain, fracture, arthritis, septic arthritis, bursitis, cellulitis, muscle spasm, nerve compression, DVT, arterial occlusion, herpes zoster, electrolyte abnormality, tumor.... This is not meant to be in all inclusive list EKG interpreted by me (3pts min.). @ -None] X-rays interpreted by me (1pt min.). @ -None done CT interpreted by me (1pt min.). @ -None done U/S interpreted by me (1pt. min.). @ -[Venous duplex ultrasound of right lower extremity negative for acute DVT. What testing was considered but not performed or refused? (CT, X-rays, U/S, labs)? Why? @ -None What meds were considered but not given or refused? Why? @ -None Did you discuss the management of the patient with other professionals (professionals i.e. , PA, CUSTOMER CARE ASSISTANT, lab, RT, psych nurse, social work assistant, strap making machine operator, teacher, chief client officer, case picker)? Give summary @ -No Was smoking cessation discussed for >3mins.? @ -No Was critical care preformed (if so, how long)? @ -No Were there social determinants of health that impacted care today? How? (Homelessness, low income, unemployed, alcoholism, drug addiction, transportation, low edu. Level, literacy, decrease access to med. care, care home, rehab)? @ -No Was there de-escalation of care discussed even if they declined (Discuss DNR or withdrawal of care, Hospice)? DNR status @ -No What co-morbidities impacted this encounter? (DM, HTN, Smoking, COPD, CAD, Cancer, CVA, ARF, Chemo, Hep., AIDS, mental health diagnosis, sleep apnea, morbid obesity)? @ -Obese Was patient admitted / discharged? Hospital course, mention meds given and route, prescriptions, significant lab abnormalities, going to OR and other pertinent info. @ -Discharge. Patient is 72-year-old male presented to ER with chief complaint of right leg pain and swelling. History and physical exam completed. Vitals stable. Patient's right lower extremity neurovascularly intact. Extremity warm to touch with a positive Homans' sign. 1+ pretibial pitting edema. Patient in no signs of acute distress and nontoxic-appearing. Patient in no other complaints. Ultrasound of right lower extremity negative for acute DVT. Due to negative ultrasound cellulitis is believed to be cause. Patient will be prescribed Keflex. First dose given in ER. Return parameters discussed. Patient be discharged stable condition with follow-up to PCP. Patient expressed understanding and agreement with care plan. Undiagnosed new problem with uncertain prognosis? @ -No Drug Therapy requiring intensive monitoring for toxicity (Heparin, Nitro, Insulin, Cardizem)? @ -No Were any procedures done? @ -No Diagnosis/symptom? @ -Cellulitis Acute, or Chronic, or Acute on Chronic? @ -Acute Uncomplicated (without systemic symptoms) or Complicated (systemic symptoms)? @ -Uncomplicated Side effects of treatment? @ -No Exacerbation, Progression, or Severe Exacerbation? @ -No Poses a threat to life or bodily function? How? (Chest pain, [place], [place], pneumonia, PE, COPD, DKA, ARF, appy, cholecystitis, CVA, Diverticulitis, Homicidal, Suicidal, threat to staff... and all critical care pts) @ -No - Radiology Data Radiology results: report reviewed, image reviewed Disposition Clinical Impression: Cellulitis Disposition: HOME SELF-CARE Condition: Stable Instructions (If sedation given, give patient instructions): Cellulitis (ED) Additional Instructions: Please complete full course of antibiotics. Follow-up with PCP in the next 1 to 2 days. Return to the ER for any new or worsening symptoms. Prescriptions: Cephalexin [Keflex] 500 mg PO Q6HR 10 Days #40 cap Is patient prescribed a controlled substance at d/c from ED?: No Referrals: Aristides Mena DO [Primary Care Provider] - 1-2 days Time of Disposition: 20:53
[2023-05-01 19:55] VITALS: BP 124/71; PULSE 77; RESP 18; TEMP 97.8
--- NOTE | 2023-05-01 20:44 | US ---
EXAMINATION TYPE: US venous doppler duplex LE RT DATE OF EXAM: 05/01/2023 8:22 PM COMPARISON: NONE CLINICAL INDICATION: Male, 72 years old with history of swelling and + homans; 300lb patient with red swollen right calf, no h/o dvt SIDE PERFORMED: Right TECHNIQUE: The lower extremity deep venous system is examined utilizing real time linear array sonog cee with graded compression, doppler sonography and color-flow sonography. VESSELS IMAGED: Common Femoral Vein Deep Femoral Vein Greater Saphenous Vein * Femoral Vein Popliteal Vein Small Saphenous Vein * Proximal Calf Veins (* superficial vessels) Right Leg: Negative for DVT IMPRESSION: Grayscale, color doppler, spectral doppler imaging performed of the deep veins of the lo wer extremities. There is normal flow, compressibility, vascular waveforms.
[2023-05-01] MEDS: CEPHALEXIN 500 MG CAP PO STA (21:06)
== END 2023-05-01 21:12 | disposition home or self-care (01) ==
LOC: EC 18:51
DX: L03.115 Cellulitis of right lower limb (principal); I13.0 Hypertensive heart and chronic kidney disease with heart failure and stage 1 through stage 4 chronic kidney disease, or unspecified chronic kidney disease; N18.30 Chronic kidney disease, stage 3 unspecified; E11.22 Type 2 diabetes mellitus with diabetic chronic kidney disease; J44.89 Other specified chronic obstructive pulmonary disease; I48.91 Unspecified atrial fibrillation; K21.9 Gastro-esophageal reflux disease without esophagitis; F32.A Depression, unspecified; M19.90 Unspecified osteoarthritis, unspecified site; M10.9 Gout, unspecified; E66.9 Obesity, unspecified; F12.90 Cannabis use, unspecified, uncomplicated; Z79.4 Long term (current) use of insulin; Z79.899 Other long term (current) drug therapy; Z88.5 Allergy status to narcotic agent; Z88.6 Allergy status to analgesic agent; Z88.8 Allergy status to other drugs, medicaments and biological substances; Z87.891 Personal history of nicotine dependence; Z68.39 Body mass index [BMI] 39.0-39.9, adult; Z98.41 Cataract extraction status, right eye; Z98.42 Cataract extraction status, left eye
CPT/HCPCS: 99283

== ENCOUNTER → 2023-06-27 | Outpatient (CLI) | payer MEDICARE ==
[2023-06-27 21:00] LABS: Basophils # (A) 0.03 X 10*3/uL (0.00-0.10); Basophils % (A) 0.5 %; Elliptocytes 2+; Eosinophils # (A) 0.21 X 10*3/uL (0.04-0.35); Eosinophils % (A) 3.6 %; HCT 40.1 % (39.6-50.0); HGB 13.8 g/dL (13.0-17.0); Lymphocytes # (A) 1.28 X 10*3/uL (0.90-5.00); Lymphocytes % (A) 22.1 %; MCH 36.7 pg (27.0-32.0); MCHC 34.4 g/dL (32.0-37.0); MCV 106.6 FL (80.0-97.0); Macrocytosis (M) 2+; Mean Platelet Volume 13.1 FL (9.5-12.2); Monocytes # (A) 0.55 X 10*3/uL (0.20-1.00); Monocytes % (A) 9.5 %; NRBC Per 100 WBC 0 X 10*3/uL (0.00-0.01); Neutrophils # (A) 3.69 X 10*3/uL (1.80-7.70); Platelet Count 42 X 10*3/uL (140-440); RBC 3.76 X 10*6/uL (4.40-5.60); WBC 5.78 X 10*3/uL (4.50-10.00)
[2023-06-27 21:10] LABS: % Iron Saturation 34.08 (15.00-50.00); Albumin 3.7 g/dL (3.8-4.9); BUN/Creat Ratio 14.28 Ratio (12.00-20.00); Blood Urea Nitrogen 25.7 mg/dL (9.0-27.0); Calcium 8.9 mg/dL (8.7-10.3); Carbon Dioxide 24.5 mmol/L (21.6-31.8); Chloride 106 mmol/L (96-109); Glucose 109 mg/dL (70-110); Iron 107 UG/DL (65-175); Magnesium 1.8 mg/dL (1.5-2.4); Phosphorus 3.2 mg/dL (2.4-5.1); Potassium 3.6 mmol/L (3.5-5.5); Sodium 142 mmol/L (135-145); Total Iron Binding Capacity 314 UG/DL (228-460); Uric Acid 8.4 mg/dL (3.7-8.7)
[2023-06-28 03:54] LABS: Appearance,Urine Turbid (Clear); Bilirubin,Urine Negative (Negative); Blood,Urine Moderate (Negative); Color,Urine Yellow (Yellow); Ketones,Urine Negative (Negative); Nitrite,Urine Positive (Negative); Urobilinogen,Urine 0.2 E.U./DL
[2023-06-28 04:28] LABS: Urine Creatinine 78.9 mg/dL (39.0-259.0)
[2023-06-28 05:06] LABS: Bacteria,Urine 4+ (None Seen)
== END | disposition home or self-care (01) ==
LOC: LABWHC1 15:21
PROVIDERS: ATTEND Internal Medicine Nephrology
DX: N18.31 Chronic kidney disease, stage 3a (principal)
CPT/HCPCS: 36415; 80048; 81001; 82040; 82043; 82306; 82570; 82728; 83540; 83550; 83735; 83970; 84100; 84550; 85025

== ENCOUNTER → 2023-07-23 | Outpatient (CLI) | payer MEDICARE ==
--- NOTE | 2023-07-23 15:20 | CT ---
EXAMINATION TYPE: CT chest wo con CT DLP: 513.30 mGycm, Automated exposure control for dose reduction was used. DATE OF EXAM: 07/23/2023 8:42 AM COMPARISON: CT 03/17/2023 and before CLINICAL INDICATION:Male, 73 years old with history of R91.1 SOLITARY PULMONARY NODULE; PHH, Solitary pulmonary nodule TECHNIQUE: Multiple axial images were obtained through the chest. Sagittal and coronal reformats were created for review. Contrast used: mL of (None if empty) Oral contrast used: (None if empty) FINDINGS: Exam is limited by lack of contrast. LUNGS/ PLEURA: In the right lower lobe posteromedially, redemonstration of a bilobed noncalcified sub pleural nodule with small focus of gas or bronchiole within, measuring 21 x 13 mm, unchanged. Small w ispy area posteriorly on the right has decreased in conspicuity with suspected tiny residual granulom a. A 7 mm nodular density along the oblique fissure on the right is stable. Emphysematous appearing c hanges with areas of scarring again noted. No new or enlarging nodule, consolidation, pleural effusio n, or pneumothorax. AIRWAY: Central airways are patent. LOWER NECK: No significant findings. MEDIASTINUM: Multiple nonenlarged mediastinal nodes remain stable. No enlarged mediastinal nodes.. E valuation for hilar adenopathy is limited without contrast but none is seen. HEART: Mild cardiomegaly. Moderate coronary artery calcification and/or stents. No appreciable perica rdial effusion. VASCULATURE: Mild/moderate calcified atherosclerotic disease of the aorta.. Ascending aorta is 4.4 C M, descending is 3.1 CM. Aorta is considered ectatic. Pulmonary trunk measures 3 cm, considered borderline enlarged. SOFT TISSUES/LYMPH NODES: There is moderate bilateral gynecomastia. No axillary adenopathy. UPPER ABDOMEN: Spleen is again enlarged measuring at least 18.6 cm. included liver appears somewhat s mall and potentially cirrhotic as before. Partially seen aortic stent. MUSCULOSKELETAL: No acute osseous abnormalities. Mild disc degeneration changes are present throughou t the thoracolumbar spine. At the T8-T9 level there is heterogeneous sclerosis of the endplates with central Schmorl's nodes along each, unchanged from the prior CT and presumed chronic/degenerative. IMPRESSION: 1. Continued stable right lower lobe pulmonary nodularity. 2. Otherwise stable exam, without evidence of an acute process.
== END | disposition home or self-care (01) ==
LOC: RADCTMAIN 08:04
PROVIDERS: ATTEND Internal Medicine Hematology & Oncology
DX: J98.4 Other disorders of lung (principal); J44.9 Chronic obstructive pulmonary disease, unspecified; I10 Essential (primary) hypertension; D69.59 Other secondary thrombocytopenia; R91.1 Solitary pulmonary nodule
CPT/HCPCS: 71250

== ENCOUNTER → 2023-10-07 | Outpatient (CLI) | payer MEDICARE ==
--- NOTE | 2023-10-07 08:19 | XR ---
EXAMINATION TYPE: XR chest 2V DATE OF EXAM: 10/07/2023 COMPARISON: 02/09/2021 HISTORY: Shortness of breath TECHNIQUE: Frontal and lateral views of the chest are obtained. FINDINGS: Scattered senescent parenchymal changes noted. Hyperinflation compatible with COPD. No evidence for infiltrate. No evidence for atelectasis. Heart size is stable. Mediastinal structures are stable and grossly unremarkable. No evidence for hilar prominence. Degenerative changes dorsal spine. IMPRESSION: 1. No evidence for acute pulmonary disease.
== END | disposition home or self-care (01) ==
LOC: RADXRMAIN 08:01
PROVIDERS: ATTEND Family Medicine
DX: I50.9 Heart failure, unspecified (principal); R06.02 Shortness of breath
CPT/HCPCS: 71046

== ENCOUNTER → 2023-11-16 | Outpatient (CLI) | payer MEDICARE ==
[2023-11-16 15:24] LABS: Appearance,Urine Turbid (Clear); Bilirubin,Urine Negative (Negative); Blood,Urine Large (Negative); Color,Urine Yellow (Yellow); Ketones,Urine Negative (Negative); Nitrite,Urine Positive (Negative); Urobilinogen,Urine 0.2 E.U./DL
[2023-11-16 15:37] LABS: Basophils # (A) 0.02 X 10*3/uL (0.00-0.10); Basophils % (A) 0.4 %; Eosinophils # (A) 0.17 X 10*3/uL (0.04-0.35); Eosinophils % (A) 3.7 %; HCT 39.3 % (39.6-50.0); HGB 13.1 g/dL (13.0-17.0); Lymphocytes # (A) 1.05 X 10*3/uL (0.90-5.00); Lymphocytes % (A) 22.6 %; MCH 36.3 pg (27.0-32.0); MCHC 33.3 g/dL (32.0-37.0); MCV 108.9 FL (80.0-97.0); Mean Platelet Volume 12.9 FL (9.5-12.2); Monocytes # (A) 0.49 X 10*3/uL (0.20-1.00); Monocytes % (A) 10.6 %; NRBC Per 100 WBC 0 X 10*3/uL (0.00-0.01); Neutrophils # (A) 2.89 X 10*3/uL (1.80-7.70); Neutrophils % (A) 62.3 %; Platelet Count 41 X 10*3/uL (140-440); RBC 3.61 X 10*6/uL (4.40-5.60); RDW 15.3 % (11.5-14.5); WBC 4.64 X 10*3/uL (4.50-10.00)
[2023-11-16 15:57] LABS: % Iron Saturation 21.33 (15.00-50.00); Albumin 3.5 g/dL (3.8-4.9); BUN/Creat Ratio 15.22 Ratio (12.00-20.00); Blood Urea Nitrogen 27.4 mg/dL (9.0-27.0); Calcium 8.8 mg/dL (8.7-10.3); Chloride 107 mmol/L (96-109); Glucose 116 mg/dL (70-110); Iron 64 UG/DL (65-175); Phosphorus 2.7 mg/dL (2.4-5.1); Potassium 3.9 mmol/L (3.5-5.5); Sodium 142 mmol/L (135-145); Total Iron Binding Capacity 300 UG/DL (228-460); Uric Acid 9.4 mg/dL (3.7-8.7)
[2023-11-16 16:09] LABS: Bacteria,Urine 4+ (None Seen)
[2023-11-16 18:14] LABS: Urine Creatinine 68.3 mg/dL (39.0-259.0)
== END ==
LOC: LABWHC1 11:37
PROVIDERS: ATTEND Internal Medicine Nephrology
DX: N18.31 Chronic kidney disease, stage 3a (principal); D63.1 Anemia in chronic kidney disease; E55.9 Vitamin D deficiency, unspecified; N25.81 Secondary hyperparathyroidism of renal origin; M10.9 Gout, unspecified; N39.0 Urinary tract infection, site not specified
CPT/HCPCS: 36415; 80048; 81001; 82040; 82043; 82306; 82570; 82728; 83540; 83550; 83735; 83970; 84100; 84550; 85025

== ENCOUNTER → 2023-12-12 | Outpatient (CLI) | payer MEDICARE | END | disposition home or self-care (01) | LOC: LABWHC1 13:59 | PROVIDERS: ATTEND Urology | DX: N40.1 Benign prostatic hyperplasia with lower urinary tract symptoms (principal); R35.1 Nocturia | CPT/HCPCS: 36415; 84153 ==

== ENCOUNTER → 2024-03-24 | Outpatient (CLI) | payer MEDICARE ==
[2024-03-24 23:38] LABS: Appearance,Urine Turbid (Clear); Bilirubin,Urine Negative (Negative); Blood,Urine Large (Negative); Color,Urine Yellow (Yellow); Ketones,Urine Negative (Negative); Nitrite,Urine Negative (Negative); Specific Gravity,Urine 1.008 (1.001-1.030); Urobilinogen,Urine 0.2 E.U./DL
[2024-03-24 23:53] LABS: Basophils # (M) 0 X 10*3/uL (0.00-0.10); Elliptocytes 2+ (None Seen); HGB 12.1 g/dL (13.0-17.0); Immature Platelet Fraction 6.1 % (1.1-6.1); Lymphocytes # (M) 0.83 X 10*3/uL (0.90-5.00); MCHC 32.7 g/dL (32.0-37.0); MCV 110.1 FL (80.0-97.0); Macrocytosis (M) 2+ (None Seen); Mean Platelet Volume 12.9 FL (9.5-12.2); Monocytes # (M) 0.13 X 10*3/uL (0.20-1.00); NRBC Per 100 WBC 0 X 10*3/uL (0.00-0.01); Neutrophils # (M) 2.16 X 10*3/uL (1.80-7.70); Neutrophils % (M) 65 %; Platelet Count 36 X 10*3/uL (140-440); RBC 3.36 X 10*6/uL (4.40-5.60); WBC 3.33 X 10*3/uL (4.50-10.00)
[2024-03-25 00:23] LABS: Bacteria,Urine 3+ (None Seen)
[2024-03-25 10:59] LABS: % Iron Saturation 37.21 (15.00-50.00); Albumin 3.3 g/dL (3.8-4.9); BUN/Creat Ratio 15.94 Ratio (12.00-20.00); Blood Urea Nitrogen 25.5 mg/dL (9.0-27.0); Calcium 8.4 mg/dL (8.7-10.3); Chloride 105 mmol/L (96-109); Glucose 201 mg/dL (70-110); Iron 112 UG/DL (65-175); Magnesium 1.7 mg/dL (1.5-2.4); Phosphorus 3.2 mg/dL (2.4-5.1); Potassium 3.8 mmol/L (3.5-5.5); Sodium 140 mmol/L (135-145); Total Iron Binding Capacity 301 UG/DL (228-460); Uric Acid 7.3 mg/dL (3.7-8.7)
== END | disposition home or self-care (01) ==
LOC: LABWHC1 11:23
PROVIDERS: ATTEND Internal Medicine Nephrology
DX: N18.31 Chronic kidney disease, stage 3a (principal)
CPT/HCPCS: 36415; 80048; 81001; 82040; 82043; 82306; 82570; 82728; 83540; 83550; 83735; 83970; 84100; 84550; 85025

== ENCOUNTER → 2024-06-01 | Outpatient (CLI) | payer MEDICARE ==
--- NOTE | 2024-06-01 13:26 | CT ---
EXAMINATION TYPE: CT chest wo con DATE OF EXAM: 06/01/2024 COMPARISON: Chest CT July 23, 2023 and older studies. CLINICAL INDICATION: Male, 74 years old with history of J98.4 OTHER DISORDERS OF LUNG, nodules, COPD TECHNIQUE: CT scan of the thorax is performed without IV contrast. CT DLP: 652.8 mGycm. Automated Exposure Control for Dose Reduction was Utilized. FINDINGS: LUNGS: Moderate underlying emphysematous change is redemonstrated. Parenchymal fibrosis in the apices and central upper lungs is redemonstrated. Stable 1.9 x 1.2 cm medial right lower lobe pulmonary nod ule image 38. No focal consolidation. No pleural effusion or pneumothorax seen bilaterally. HEART: Size within normal limits. Moderate coronary artery calcifications are redemonstrated. MEDIASTINUM: Lack of IV contrast is noted to limit evaluation for mediastinal and especially hilar ad enopathy. There are no definitive greater than 1 cm hilar or mediastinal lymph nodes. No pericardia l effusion is seen. Semierect measures up to 4.2 cm in diameter unchanged from most recent prior OTHER: Bilateral gynecomastia is redemonstrated. Cirrhotic liver is redemonstrated. Splenomegaly is p artially imaged similar to prior. Stent in the abdominal aorta is partially imaged similar to prior. Persistent sclerosis at the T8-T9 disc space is again seen. IMPRESSION: Moderate emphysematous change with upper lung fibrosis redemonstrated. Stable near 2.0 cm medial right midlung pulmonary nodule. No significant change from most recent CT. [facility], , 06/01/2024 1:24 PM
== END | disposition home or self-care (01) ==
LOC: RADCTMAIN 12:03
PROVIDERS: ATTEND Internal Medicine Hematology & Oncology
DX: R91.1 Solitary pulmonary nodule (principal); J98.4 Other disorders of lung; J44.9 Chronic obstructive pulmonary disease, unspecified; D69.59 Other secondary thrombocytopenia; I10 Essential (primary) hypertension; J84.10 Pulmonary fibrosis, unspecified
CPT/HCPCS: 71250

== ENCOUNTER → 2024-10-03 | Outpatient (CLI) | payer MEDICARE ==
--- NOTE | 2024-10-03 11:22 | US ---
EXAMINATION TYPE: US liver DATE OF EXAM: 10/03/2024 COMPARISON: US 2022 CLINICAL INDICATION: Male, 74 years old with history of K74.60 UNSPECIFIED CIRRHOSIS OF LIVER; Follow up TECHNIQUE: Grayscale and color Doppler imaging of the right upper quadrant. FINDINGS: EXAM MEASUREMENTS: Liver Length: 17.6 cm Gallbladder Wall: 0.2 cm CBD: 0.2 cm, color Doppler imaging was utilized to isolate the common bile duct for measurement. Right Kidney: 10.3 x 5.2 x 5.9 cm CABLE TESTER NOTES: Exam very limited by overlying bowel gas and patient body habitus Pancreas: Portions visualized wnl, tail obscured by bowel gas Liver: Appears enlarged and coarse Gallbladder: No stones or wall thickening seen Evidence for sonographic Goodwin's sign: No CBD: wnl Right Kidney: No hydronephrosis or masses seen IMPRESSION: Hepatomegaly with underlying hepatic steatosis. [facility], , 10/03/2024 11:20 AM
== END | disposition home or self-care (01) ==
LOC: RADUSWWP 10:19
PROVIDERS: ATTEND Internal Medicine Gastroenterology
DX: K74.60 Unspecified cirrhosis of liver (principal); R16.0 Hepatomegaly, not elsewhere classified; K76.0 Fatty (change of) liver, not elsewhere classified
CPT/HCPCS: 76705